=== PATIENT | female | born 1945 | race Caucasian/White ===

== ENCOUNTER 2023-03-28 09:48 | Outpatient (OUT) | payer MEDICARE, SELFPAY ==
[2023-03-28 10:36] LABS: Basophils Absolute Auto 0.1 10^3/uL (0.0-0.1); Basophils Percent Auto 0.6 % (0.2-2.0); Eosinophils Absolute Auto 0.4 10^3/uL (0.0-0.7); Eosinophils Percent Auto 3.1 % (0.9-7.0); Hematocrit 40.9 % (36.0-48.0); Immature Granulocytes Abs Auto 0.03 10^3/uL (0.00-0.03); Immature Granulocytes Pct Auto 0.2 % (0.0-0.5); Lymphocytes Absolute Auto 4.6 10^3/uL (1.2-3.8); Lymphocytes Percent Auto 35.5 % (20.5-60.0); Mean Corpuscular HGB Conc 31.8 g/dL (29.9-35.2); Mean Corpuscular Hemoglobin 27.8 pg (26.7-34.0); Mean Corpuscular Volume 87.6 fL (81.0-99.0); Mean Platelet Volume 11.1 fL (9.5-13.5); Monocytes Absolute Auto 0.8 10^3/uL (0.3-0.8); Monocytes Percent Auto 6.3 % (1.7-12.0); Neutrophils Absolute Auto 6.9 10^3/uL (1.4-6.5); Neutrophils Percent Auto 54.3 % (43.0-75.0); Platelet Count 282 10^3/uL (150-450); Red Blood Count 4.67 10^6/uL (4.20-5.40); Red Cell Distribution Width 13.2 % (11.0-15.0); White Blood Count 12.8 10^3/uL (4.0-11.0)
[2023-03-28 10:46] LABS: BUN Creatinine Ratio 29.7; Calcium 8.9 mg/dL (8.5-10.1); Carbon Dioxide 27.9 mmol/L (21.0-32.0); Chloride 101 mmol/L (98-107); Chol HDL Ratio 3.2; Cholesterol 171 mg/dL (<=200); Estimated GFR (African America >60 (>=60); Estimated GFR (Non-African Ame >60 (>=60); Glucose 92 mg/dL (74-106); HDL Cholesterol 53 mg/dL (40-60); Potassium 3.9 mmol/L (3.5-5.1); Sodium 138 mmol/L (136-145); Triglycerides 50 mg/dL (<=150)
== END 2023-03-28 09:49 | disposition home or self-care (01) ==
LOC: LAB 09:53
PROVIDERS: PCP Internal Medicine; Visit Provider Internal Medicine
DX: E78.00 Pure hypercholesterolemia, unspecified (principal); I10 Essential (primary) hypertension; Z79.899 Other long term (current) drug therapy
CPT/HCPCS: 36415; 80048; 80061; 85025

== ENCOUNTER 2024-06-18 10:18 | Outpatient (OUT) | payer MEDICARE, SELFPAY ==
--- OUTSIDE RECORDS SUMMARY | 2024-06-18 10:23 | XMS_ITS | CCD ---
Author Organization [facility] Care Team Providers Care Clinical Associate Name Role Phone DR MAYITO COSTELLO Primary Care Unavailable DIANDRA, LEONIDAS Attending Unavailable ROSS, LEONIDAS Consulting Unavailable ROSS, LEONIDAS Admitting Unavailable BALL, DR BERNARDO Primary Care Unavailable BALL, DR BERNARDO Admitting Unavailable BALL, DR BERNARDO Attending Unavailable BALL, DR BERNARDO Consulting Unavailable BALL, DR BERNARDO Primary Care Unavailable BALL, DR BERNARDO Admitting Unavailable BALL, DR BERNARDO Attending Unavailable BALL, DR BERNARDO Consulting Unavailable BALL, DR BERNARDO Primary Care Unavailable ROSS, LEONIDAS Consulting Unavailable ROSS, LEONIDAS Admitting Unavailable ROSS, LEONIDAS Attending Unavailable ROSS, LEONIDAS Consulting Unavailable ROSS, LEONIDAS Admitting Unavailable ROSS, LEONIDAS Attending Unavailable BALL, DR BERNARDO Primary Care Unavailable Ball, Mayito Unavailable Allergies Allergy Classification Reported Allergen(s) Allergy Type Date of Onset Reaction(s) Facility (1 source) Penicillin Drug Allergy 05-15-18 70 [facility] (1 source) Sulfonamides (Antibiotic) Drug allergy (disorder) 05-15-18 60 [facility] (2 sources) sulfADIAZINE Drug Allergy 04-03-20 [facility] (1 source) patient allergy list reviewed by nurse or physicia Propensity to adverse reactions 01-09-20 Comment:Done [employer] Other (1 source) Substance with penicillin structure and antibacterial mechanism of action (substance) Drug allergy 01-08-20 19 Unknown [facility] Other (1 source) Penicillins Allergy to substance 04-03-20 Unknown Reaction [facility] Comment on above: Onset Date: 01/08/20 19 Medications Current Medications Medication Drug Class(es) Dates Sig (Normalized) Sig (Original) losartan potassium 25 mg oral tablet (5 sources) Angiotensin 2 Receptor Tamaar Start: 10-02-2023 End: 03-21-2024 take 1 tablet by mouth once daily Losartan 25 mg tablet Active 0 .ROUTE .COMPLEX March 21, 2024 10:39am TAKE 1 TABLET BY MOUTH EVERY DAY Start: 09-28-2023 End: 10-02-2023 take 1 tablet by mouth once daily Losartan 25 mg tablet Discontinued 25 MG PO Daily September 27, 2023 11:00pm October 02, 2023 11:47am take 1 tablet by jordon th once daily Losartan Potassium 25 MG TAKE 1 TABLET BY MOUTH EVERY DAY Active metoprolol tartrate 25 mg oral tablet (5 sources) beta-Adrenergic Tamara Start: 09-28-2023 End: 03-14-2024 take 0.5 tablet by mouth twice daily Metoprolol Tartrate 25 mg tablet Active 0 .ROUTE .COMPLEX March 14, 2024 12:31pm TAKE 1/2 TABLET BY MOUTH TWICE A DAY Start: 09-28-2023 End: 09-28-2023 take 0.5 tablet by mouth twice daily Metoprolol Tartrate 25 mg tablet Discontinued 25 MG PO Twice daily September 27, 2023 11:00pm September 28, 2023 9:52am TAKE 1/2 TABLET BY MOUTH TWICE A DAY take 0.5 tablet by m outh twice daily Metoprolol Tartrate 25 MG TAKE 1/2 TABLET BY MOUTH TWICE A DAY Active Completed/Discontinued Medications Medication Drug Class(es) Dates Sig (Normalized) Sig (Original) diazePAM 2 mg oral tablet (7 sources) Benzodiazepine Start: 09-28-2023 End: 10-05-2023 take 1 tablet by mouth every six hours as needed for anxiety Diazepam 2 mg tablet Discontinued 2 MG PO Every 6 hours as needed for anxiety October 05, 2023 2:42pm October 05, 2023 2:54pm Start: 03-20-2023 take 1 tablet by jordon th every six hours as needed for anxiety diazePAM 2 MG TAKE 1 TABLET BY MOUTH EVERY 6 HOURS NEEDED FOR ANXIETY Orally daily as needed for anxiety for 30 days Mar, Active Problems Problem Classification Problem Date Documented Da te Episodic/Chronic Anxiety disorders (3 sources) Generalized anxiety disorder; Translations: [Generalized anxiety disorder] 09-29-2023 Chronic Cardiac dysrhythmias (6 sources) Palpitations; Translations: [Palpitations] Onset: 10-22-2020 Episodic Conduction disorders (1 source) Left bundle branch block; Translations: [Left bundle-branch block, unspecified] Chronic Disorders of lipid metabolism (5 sources) Familial hypercholesterolemi a; Translations: [Hypercholesterolem ia] Onset: 11-12-2020 04-01-2024 Chronic Essential hypertension (5 sources) Essential (primary) hypertension; Translations: [Essential hypertension] Onset: 11-12-2020 04-01-2024 Chronic Immunizations and screening for infectious disease (4 sources) Encounter for immunization; Translations: [ENCOUNTER FOR IMMUNIZATION] Onset: 05-18-2021 Episodic Other aftercare (1 source) Drug therapy finding; Translations: [Other lime vat tender (current) drug therapy] 04-03-2024 Episodic Other injuries and conditions due to external causes (1 source) History of fall; Translations: [History of falling] Episodic Other nutritional; endocrine; and metabolic disorders (1 source) Overweight; Translations: [Overweight] Episodic Residual codes; unclassified (1 source) Procedure not done; Translations: [Procedure and treatment not carried out because of patient's decision for unspecified reasons] Episodic Residual codes; unclassified (1 source) Mammogram declined; Translations: [Procedure and treatment not carried out because of patient's decision for unspecified reasons] 04-03-2024 Episodic Residual codes; unclassified (1 source) Procedure and treatment not carried out because of patient's decision for unspecified reasons; Translations: [Surgical or other procedure not carried out because of patient's decision] 04-03-2024 Episodic Results Test Name Value Interpretation Reference Range Facil ity CBC AUTO DIFFon 11-10-2020 BASO # 0.1 103/ul Normal 0.0-0.1 [facility] Comment on above: Performed By: #### C BC #### [facility] [address], [place] [address] Loly Naz Basophils/100 WBC (Bld) 0.6 % Normal 0.2-2.0 [facility] Comment on above: Performed By: #### C BC #### [facility] [address], [place] [address] Loly Naz EO # 0.4 103/ul Normal 0.0-0.7 [facility] Comment on above: Performed By: #### C BC #### [facility] [address] [place], [place] [id number] Loly Naz Eosinophils/100 WBC (Bld) 3.4 % Normal 0.9-7.0 [facility] Comment on above: Performed By: #### C BC #### [facility] [address] [place], [place] [phone] Loly Naz Erythrocyte distribution width (RBC) [Ratio] 13.1 % Normal 11.0-15.0 [facility] Comment on above: Performed By: #### C BC #### [facility] [address] [place] [address] Loly Naz Hematocrit (Bld) [Volume fraction] 41.5 % Normal 36.0-48.0 [facility] Comment on above: Performed By: #### C BC #### [facility] [address] [place] [address] Loly Naz Hemoglobin (Bld) [Mass/Vol] 13.5 g/dL Normal 12.0-16.0 [facility] Comment on above: Performed By: #### C BC #### [facility] [address] [place] [address] Loly Naz IG # 0.03 10e3/ul Normal 0.00-0.03 [facility] Comment on above: Performed By: #### C BC #### [facility] [address] [place] [address] Loly Naz IG % 0.3 % Normal 0.0-0.5 [facility] Comment on above: Performed By: #### C BC #### [facility] [address] [place] [address] Loly Naz LYMPH # 3.6 103/ul Normal 1.2-3.8 [facility] Comment on above: Performed By: #### C BC #### [facility] [address] [place] [address] Loly Naz Lymphocytes/100 WBC (Bld) 34.9 % Normal 20.5-60.0 [facility] Comment on above: Performed By: #### C BC #### [facility] [address] [place] [address] Loly Childs MANUAL DIFF REQ NO Normal [facility] Comment on above: Performed By: #### C BC #### [facility] [address] [place] [address] Loly Childs MCH (RBC) [Entitic mass] 28.4 pg Normal 26.7-34.0 [facility] Comment on above: Performed By: #### C BC #### [facility] [address] [place] [address] Loly Childs MCHC (RBC) [Mass/Vol] 32.5 g/dL Normal 29.9-35.2 [facility] Comment on above: Performed By: #### C BC #### [facility] [address] [place] [address] Loly Childs MCV (RBC) [Entitic vol] 87.2 fL Normal 81.0-99.0 [facility] Comment on above: Performed By: #### C BC #### [facility] [address] [place] [address] Loly Childs MONO # 0.8 103/ul Normal 0.3-0.8 [facility] Comment on above: Performed By: #### C BC #### [facility] [address] [place] [address] Loly Childs Monocytes/100 WBC (Bld) 7.6 % Normal 1.7-12.0 [facility] Comment on above: Performed By: #### C BC #### [facility] [address] [place] [address] Loly Childs NEUT # 5.5 103/ul Normal 1.4-6.5 [facility] Comment on above: Performed By: #### C BC #### [facility] [address] [place] [address] Loly Childs Neutrophils/100 WBC (Bld) 53.2 % Normal 43.0-75.0 [facility] Comment on above: Performed By: #### C BC #### [facility] [address] [place] [address] Lolysarah Childs Platelet mean volume (Bld) [Entitic vol] 12.6 fL Normal 9.5-13.5 [facility] Comment on above: Performed By: #### C BC #### [facility] [address] [place] [address] Loly Anz PLT 229 103/ul Normal 150-450 [facility] Comment on above: Performed By: #### C BC #### [facility] [address] [place] [id number] Loly Naz RBC 4.76 106/ul Normal 4.20-5.40 [facility] Comment on above: Performed By: #### C BC #### [facility] [address] [place] [id number] Loly Naz WBC 10.3 103/ul Normal 4.0-11.0 [facility] Comment on above: Performed By: #### C BC #### [facility] [address] [place] [id number] Loly Naz LIPID PROFILEon 11-10-2020 CHOL-HDL RATIO NORM SEE BELOW Normal [facility] Comment on above: Result Comment: 3.3 - 4.4 LOW RISK 4.4 - 7.1 AVERAGE RISK 7.1 - 11.0 MODERATE RISK >11.0 HIGH RISK Performed By: #### L IPID BMP #### [facility] [address] [place] [address] Loly Naz Cholesterol [Mass/Vol] 173 mg/dL Normal <=200 [facility] Comment on above: Performed By: #### L IPID BMP #### [facility] [address] [place] [address] Loly Naz Cholesterol in HDL [Mass/Vol] 48 mg/dL Normal [facility] Comment on above: Performed By: #### L IPID, BMP #### [facility] [address] [place], [place] [phone] Loly Naz Cholesterol in LDL [Mass/Vol] 113.8 mg/dL Normal [facility] Comment on above: Performed By: #### L IPID, BMP #### [facility] [address] [place] [address] Loly Naz Cholesterol.total/C holesterol in HDL [Mass ratio] 3.6 {ratio} Normal [facility] Comment on above: Performed By: #### L IPID, BMP #### [facility] [address] [id number] Loly Naz HDL NORMAL > or = 60 mg/dl - LO W CARDIOVASCULAR RISK <40 mg/dl - HIGH CARDIOVASCULAR RISK Normal [facility] Comment on above: Performed By: #### L IPID, BMP #### [facility] [address] [place] [id number] Loly Naz LDL CALC NORMAL SEE BELOW Normal [facility] Comment on above: Result Comment: <100 mg/dl OPTIMAL 100 - 129 mg/dl NEAR OR ABOVE OPTIMAL 130 - 159 mg/dl BORDERLINE HIGH 160 - 189 mg/dl HIGH >190 mg/dl VERY HIGH Performed By: #### L IPID, BMP #### [facility] [address] [place], [place] [phone] Loly Naz Triglyceride [Mass/Vol] 56 mg/dL Normal <=150 [facility] Comment on above: Performed By: #### L IPID, BMP #### [facility] [address] [id number] Loly Naz VLDL CALC 11.2 mg/dL Normal [facility] Comment on above: Performed By: #### L IPID, BMP #### [facility] [address] [id number] Loly Naz PROF CHEM 8 (BAS METB)on Anion gap [Moles/Vol] 11.6 mmol/L Normal [facility] Comment on above: Performed By: #### L IPID, BMP #### [facility] [address] [place] [id number] Loly Naz Calcium [Mass/Vol] 9.1 mg/dL Normal 8.4-10.2 [facility] Comment on above: Performed By: #### L IPID, BMP #### [facility] [address] [place] [id number] Loly Naz Chloride [Moles/Vol] 101 mmol/L Normal 98-107 [facility] Comment on above: Performed By: #### L IPID, BMP #### [facility] [address] [id number] Loly Naz CO2 [Moles/Vol] 29.6 mmol/L Normal 22.0-30.0 [facility] Comment on above: Performed By: #### L IPID, BMP #### [facility] [address] [id number] Loly Naz Creatinine [Mass/Vol] 0.80 mg/dL Normal 0.52-1.04 [facility] Comment on above: Performed By: #### L IPID, BMP #### [facility] [address] [id number] Loly Naz EGFR-AF KITTITIAN >60 Normal >=60 [facility] Comment on above: Performed By: #### L IPID, BMP #### [facility] [address] [place] [address] Loly Naz EGFR-NON AF KITTITIAN >60 Normal >=60 [facility] Comment on above: Performed By: #### L IPID, BMP #### [facility] [address] [place] [address] Loly Naz Glucose [Mass/Vol] 95 mg/dL Normal 74-106 [facility] Comment on above: Performed By: #### L IPID, BMP #### [facility] [address] [place] [address] Loly Naz Potassium [Moles/Vol] 4.2 mmol/L Normal 3.4-5.0 [facility] Comment on above: Performed By: #### L IPID, BMP #### [facility] [address] [place] [address] Loly Naz Sodium [Moles/Vol] 138 mmol/L Normal 137-145 [facility] Comment on above: Performed By: #### L IPID, BMP #### [facility] [address] [place] [address] Loly Naz Urea nitrogen [Mass/Vol] 19.0 mg/dL Critically high 7.0-17.0 [facility] Comment on above: Performed By: #### L IPID, BMP #### [facility] [address], [place] [address] Loly Childs Urea nitrogen/Creatinine [Mass ratio] 23.8 mg/mg Normal [facility] Comment on above: Performed By: #### L IPID, BMP #### [facility] [address], [place] [address] Loly Childs Vital Signs Date Time Vital Sign Value Performing Clinician Dee Dee gonzales 04-03-2024 15:58-0500 Body height 162.56 cm [facility] 04-03-2024 15:58-0500 Body mass index (BMI) [Ratio] 24.9 kg/m2 [facility] 04-03-2024 15:58-0500 Body weight 65.77 kg [facility] 04-03-2024 15:58-0500 Diastolic blood pressure 89 mm[Hg] [facility] 04-03-2024 15:58-0500 Heart rate 63 /min [facility] 04-03-2024 15:58-0500 Respiratory rate 12 /min [facility] 04-03-2024 15:58-0500 Systolic blood pressure 151 mm[Hg] [facility] Encounters Encounter Date Encounter Type Care Provider Facility Start: 04-03-2024 End: 04-03-2024 ambulatory [facility] Work Phone: Start: 04-03-2024 End: 04-03-2024 Patient encounter procedure [facility] Phys[facility] Work Phone: Start: 04-01-2024 Patient encounter procedure [facility] Start: 03-20-2024 Non-patient / Non-visit [facility] Physician [facility] Work Phone: Start: 03-29-2023 End: 03-29-2023 ambulatory Mayito Costello Other [employer] Other Start: 03-29-2023 Telephone encounter Mayito MAN [facility] Start: 01-04-2022 Adult health examination Mayito Costello Other [employer] Other Start: 05-18-2021 End: 05-19-[address] MAYITO COSTELLO Facility:[facility] Start: 11-12-2020 Encounter for genera l adult medical examination without abnormal findings DR MAYITO COSTELLO [facility] Start: 11-10-2020 End: 11-11-[address] MAYITO COSTELLO Facility:[facility] Start: 11-10-2020 End: 11-11-2020 Encounter for general adult medical examination without abnormal findings DR MAYITO COSTELLO Facility:[facility] Start: 10-22-2020 End: 10-23-[address] MAYITO COSTELLO Facility:[facility] Start: 09-21-2020 End: 09-22-[address] MAYITO COSTELLO Facility:[facility] Start: 08-31-2020 End: 09-01-2020 ambulatory LEONIDAS DIANDRA Facility:[facility] Procedures Date Procedure Procedure Detail Performing Clinician Depression screening Camila Costello Other Plan of Treatment Date Care Activity Detail Author Comprehensive metabo lic 2000 panel - Serum or Plasma [facility] enter [facility] Payers Date Payer Category Payer Medicare [id number] 1959 Self-pay 1961 Unknown [id number] 1945 Unknown [id number] [id number] [id number] 1945 Unknown [id number] 2.16.84 [id number] 1945 Unknown [id number] [id number] [id number] 1945 Unknown [id number] 2.16.84 [id number] Private Health Insurance CLI [id number] Unknown [id number] 2.16.84 [id number] Social History Date Type Detail Facility Sex [facility]igned At [facility] Work Phone: Start: 04-03-2024 Sex Female (finding) [facility] Start: 1945 Sex Assigned At Female F [facility] Evaluation note Note Date & Type Note Facility Evaluation note No Information [facility] [employer] Other Evaluation note Note Date & Type Note Facility Evaluation note Diagnosis Onset Date Resolution ANDRES (generalized anxiety disorder) acute April 03, 2024 3:35pm Hypercholesterolemia acute Nove mber 2023 3:35pm Hypertension acute March 3:35pm Mammogram declined acute Novemb er 2023 3:35pm Medicare annual wellness visit, subsequent acute April 03, 2024 3:35pm [facility] Work Phone: History general Narrative - Reported Note Date & Type Note Facility History general Narrative - Reported Type Medical History HTN Medical History ANDRES Medical History LBBB Medical History HLD Surgical History Hydatidiform mole [facility] Other Summary Purpose Family History No Family History Records Found Advance Directives Advance Directive Response Recorded Date/ Time Advance Directives No February 15, 2024 2:00pm Chief Complaint and Reason for Visit Chief Complaint Admit Date CC Adult Risk Stratification March 12:00pm Wellness April 03, 2024 3:35pm Reason for Visit Admit Date ANDRES (generalized anxiety disorder) Novem 2023 3:35pm Hypercholesterolemia April 03, 2024 3:35pm Hypertension April 03, 2024 3:35pm Mammogram declined April 03, 2024 3:35pm Medicare annual wellness visit, subseque nt April 03, 2024 3:35pm Additional Source Comments INFORMATION SOURCE (unrecogn ized section and content) DATE CREATED AUTHOR 05/28/2021 [facility] REASON FOR VISIT (unrecogniz ed section and content) Lab results Care Teams (unrecognized sec tion and content) Team Status: Active Member Role Status Dates Mayito Costello DO Primary Care Provider Active Team Status: Active Member Role Status Dates Mayito Costello DO Primary Care Provide r, Attending Provider Active Start: March 20, 2024 Team Status: Inactive Member Role Status Dates Mayito Costello DO Primary Care Provide r, Attending Provider Active Start: April 03, 2024 End: April 03, 2024 Goals (unrecognized section and content) Goals may be documented in a n alternate section FOR RECORDS PERTAINING TO PATIENTS WHO ARE OR HAVE BEEN ENROLLED IN A CHEMICAL DEPENDENCY/SUBSTANCEABUSE PROGRAM, SOME INFORMATION MAY BE OMITTED. This clinical summary was aggregated from multiple sources. Caution should be exercised in using it in the provision of clinical care. This summary normalizes information from multiple sources, and as a consequence, information in this document may materially change the coding, format and clinical context of patient data. In addition, data may be omitted in some cases. CLINICAL DECISIONS SHOULD BE BASED ON THE PRIMARY CLINICAL RECORDS. [facility] [employer] [facility]. provides no warranty or guarantee of the accuracy or completeness of information in this document.
[2024-06-18 10:45] LABS: Basophils Absolute Auto 0.1 10^3/uL (0.0-0.1); Basophils Percent Auto 0.7 % (0.2-2.0); Eosinophils Absolute Auto 0.5 10^3/uL (0.0-0.7); Eosinophils Percent Auto 2.9 % (0.9-7.0); Hematocrit 37.9 % (36.0-48.0); Hemoglobin 12.9 g/dL (12.0-16.0); Immature Granulocytes Abs Auto 0.15 10^3/uL (0.00-0.03); Lymphocytes Absolute Auto 3.2 10^3/uL (1.2-3.8); Lymphocytes Percent Auto 20.4 % (20.5-60.0); Mean Corpuscular Hemoglobin 29.2 pg (26.7-34.0); Mean Corpuscular Volume 85.7 fL (81.0-99.0); Mean Platelet Volume 12.8 fL (9.5-13.5); Monocytes Absolute Auto 1.3 10^3/uL (0.3-0.8); Monocytes Percent Auto 8.2 % (1.7-12.0); Neutrophils Absolute Auto 10.4 10^3/uL (1.4-6.5); Neutrophils Percent Auto 66.8 % (43.0-75.0); Platelet Count 268 10^3/uL (150-450); Red Blood Count 4.42 10^6/uL (4.20-5.40); Red Cell Distribution Width 17.7 % (11.0-15.0); White Blood Count 15.6 10^3/uL (4.0-11.0)
[2024-06-18 11:09] LABS: Alanine Aminotransferase 499 U/L (14-59); Albumin Globulin Ratio 0.8; Albumin Level 2.8 g/dL (3.4-5.0); Alkaline Phosphatase 1074 U/L (46-116); Anion Gap 17.3; Aspartate Amino Transferase 273 U/L (15-37); BUN Creatinine Ratio 15.7; Bilirubin Total 12.9 mg/dL (0.2-1.0); Calcium 9.3 mg/dL (8.5-10.1); Carbon Dioxide 23.4 mmol/L (21.0-32.0); Chloride 101 mmol/L (98-107); Estimated GFR (African America >60 (>=60 mL/min/1.73m^2); Estimated GFR (Non-African Ame >60 (>=60 mL/min/1.73m^2); Globulin 3.7 g/dL; Glucose 101 mg/dL (74-106); Potassium 3.7 mmol/L (3.5-5.1); Sodium 138 mmol/L (136-145); Total Protein 6.5 g/dL (6.4-8.2)
== END 2024-06-18 10:19 | disposition home or self-care (01) ==
LOC: LAB 10:20
PROVIDERS: PCP Internal Medicine; Visit Provider Internal Medicine
DX: E78.00 Pure hypercholesterolemia, unspecified (principal); I10 Essential (primary) hypertension; Z79.899 Other long term (current) drug therapy
CPT/HCPCS: 36415; 80053; 85025

== ENCOUNTER 2024-06-21 08:26 | Outpatient (OUT) | payer MEDICARE, SELFPAY ==
--- NOTE | 2024-06-21 08:31 | CT_ITS ---
[address] [address] Patient Name: JENNA OSWALD MRN: [id number] date: 1945 Sex: F Assigned Patient Location: CT Current Patient Location: Accession/Order Number: [id number] Exam Date: 06/21/2024 09:25 Report Date: 06/24/2024 12:45 At the request of: [place] COSTELLO Procedure: CT abdomen pelvis w con EXAM: CT abdomen pelvis w con HISTORY: Obstructive Hyperbilirubinemia COMPARISON: None. TECHNIQUE: Axial CT imaging was performed through the abdomen and pelvis with intravenous contrast. Multiplanar reformats were performed. Dose reduction techniques were achieved by using automated exposure control and/or adjustment of mA and/or kV according to patient size and/or use of iterative reconstruction technique. FINDINGS: Lung bases: Lung bases are clear. No pleural effusion. GI upper: Unremarkable. Liver: Normal size and contour. There is a 4.6 x 3.4 cm ill-defined hypoenhancing region in segment 4A and B and 8, suspicious for primary hepatic neoplasm such as cholangiocarcinoma or metastasis. There appears capsule retraction of the segment 8 and 4A. Gallbladder: Cholecystectomy. Biliary system: No significant common bile duct dilatation. There is moderate intrahepatic biliary ductal dilatation, measuring up to 0.7 cm. Spleen: Normal size. Pancreas: Unremarkable. Adrenal glands: Normal adrenal glands. Kidneys/ureters: Normal contours. No hydronephrosis. No nephrolithiasis or ureterolithiasis. Multiple bilateral simple renal cysts. Vessels: No aneurysm. Lymph Nodes: There is 1 cm periportal lymph node. Small bowel: No wall thickening or dilatation. Colon: No wall thickening or dilatation. There is intraluminal polypoid lower rectal mass from 3 - 11:00 Trendelenburg position (series 3, image 106, highly suspicious for rectal adenocarcinoma. Appendix: No findings of appendicitis. Peritoneal cavity: No free fluid or pneumoperitoneum. Lower : Unremarkable. Bones: No acute bony abnormality. Soft tissues: No acute finding. Additional findings: None. CT/CT abdomen pelvis w con IMPRESSION: a 4.6 x 3.4 cm ill-defined hypoenhancing region in segment 4A and B and 8, suspicious for primary hepatic neoplasm such as cholangiocarcinoma or metastasis. There appears capsule retraction of the segment 8 and 4A. Liver protocol MRI with contrast, including diffusion weighted images and MRCP is recommended for better evaluation. intraluminal polypoid lower rectal mass from 3 - 11:00 Trendelenburg position, highly suspicious for rectal adenocarcinoma. Rectal protocol pelvic MRI with contrast and/or PET/CT is recommended for better evaluation. Electronically authenticated by: CORTES CORONADO Date: 06/24/2024 12:45
--- OUTSIDE RECORDS SUMMARY | 2024-06-21 08:48 | XMS_ITS | CCD ---
Author Organization [facility] Care Team Providers Care Administrative Assistant Receptionist Name Role Phone DR MAYITO COSTELLO Primary [...] source) Penicillin Drug Allergy 05-15-18 70 [facility] (1 source) Sulfonamides (Antibiotic) Drug allergy (disorder) 05-15-18 60 [facility] (3 sources) sulfADIAZINE Drug Allergy 04-03-20 Comment:Sulfa [facility] (1 source) patient allergy list reviewed by nurse or physicia Propensity to adverse reactions 01-09-20 Comment:Done [facility] Other (1 source) Substance with penicillin structure and antibacterial mechanism of action (substance) Drug allergy 01-08-20 19 Unknown [facility] Other (2 sources) Penicillins Allergy to substance 04-03-20 Unknown Reaction [facility] Comment on above: Onset Date: 01/08/20 19 Medications Current Medications Medication Drug Class(es) Dates Sig (Normalized) Sig (Original) diazePAM 2 mg oral tablet (16 sources) Benzodiazepine Start: 06-17-2024 take 1 tablet by mouth twice daily as needed for anxiety Diazepam 2 mg tablet Active 2 MG PO Twice daily as needed for anxiety June 17, 2024 6:11pm Start: 06-11-2024 End: 06-17-2024 take 1 tablet by mouth every eight hours as needed for anxiety Diazepam 2 mg tablet Discontinued 2 MG PO Every 8 hours as needed for anxiety June 14, 2024 12:20pm June 17, 2024 6:11pm Start: 09-28-2023 End: 06-11-2024 take 1 tablet by mouth every six hours as needed for anxiety Diazepam 2 mg tablet Discontinued 2 MG PO Every 6 hours as needed for anxiety October 05, 2023 2:54pm June 11, 2024 9:44pm Start: 03-20-2023 take 1 tablet by jordon th every six hours as needed for anxiety diazePAM 2 MG TAKE 1 TABLET BY MOUTH EVERY 6 HOURS NEEDED FOR ANXIETY Orally daily as needed for anxiety for 30 days Mar, Active hydrocortisone 25 mg/ml topical cream (2 sources) Corticosteroid Start: 04-30-2024 Hydrocortisone 2.5 % cream Active 0 .ROUTE .COMPLEX 28.35 April 30, 2024 5:43pm APPLY TOPICALLY TWICE DAILY NEEDED FOR SKIN IRRITATION FOR 30 DAYS Start: 04-03-2024 End: 04-30-2024 Hydrocortisone 2.5 % cream D iscontinued 1 APPLIC TOPICAL Twice daily as needed for skin irritation April 03, 2024 12:00am April 30, 2024 5:43pm losartan potassium 25 mg oral tablet (10 sources) Angiotensin 2 Receptor Tamara Start: 10-02-2023 End: 06-17-2024 take 1 tablet by mouth once daily Losartan 25 mg tablet Active 0 .ROUTE .COMPLEX June 17, 2024 6:10pm TAKE 1 TABLET BY MOUTH EVERY DAY Start: 09-28-2023 End: 10-02-2023 take 1 tablet by mouth once daily Losartan 25 mg tablet Discontinued 25 MG PO Daily September 27, 2023 11:00pm October 02, 2023 11:47am take 1 tablet by jordon th once daily Losartan Potassium 25 MG TAKE 1 TABLET BY MOUTH EVERY DAY Active Completed/Discontinued Medications Medication Drug Class(es) Dates Sig (Normalized) Sig (Original) metoprolol tartrate 25 mg oral tablet (9 sources) beta-Adrenergic Tamara Start: 09-28-2023 End: 03-14-2024 take 0.5 tablet by mouth twice daily Metoprolol Tartrate 25 mg tablet Discontinued 0 .ROUTE .COMPLEX 90 December 24, 2023 1:02pm March 14, 2024 12:31pm TAKE 1/2 TABLET [...] TABLET BY MOUTH TWICE A DAY Active Problems Problem Classification Problem Date Documented Da te Episodic/Chronic Anxiety disorders (5 sources) Generalized anxiety disorder; Translations: [Generalized anxiety disorder] 09-29-2023 Chronic Cardiac dysrhythmias (6 sources) Palpitations; Translations: [Palpitations] Onset: 10-22-2020 Episodic Conduction disorders (1 source) Left bundle branch block; Translations: [Left bundle-branch block, unspecified] Chronic Disorders of lipid metabolism (7 sources) Familial hypercholesterolemi a; Translations: [Hypercholesterolem ia] Onset: 11-12-2020 04-01-2024 Chronic Essential hypertension (7 sources) Essential (primary) hypertension; Translations: [Essential hypertension] Onset: 11-12-2020 04-01-2024 Chronic Immunizations and screening for infectious disease (4 sources) Encounter for immunization; Translations: [ENCOUNTER FOR IMMUNIZATION] Onset: 05-18-2021 Episodic Other aftercare (2 sources) Drug therapy finding; Translations: [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) drug therapy] 04-03-2024 Episodic Other injuries and conditions due to external causes (1 source) History of fall; Translations: [History of falling] Episodic Other nutritional; endocrine; and metabolic disorders (1 source) Overweight; Translations: [Overweight] Episodic Residual codes; unclassified (1 source) Procedure not done; Translations: [Procedure and treatment not carried out because of patient's decision for unspecified reasons] Episodic Residual codes; unclassified (2 sources) Mammogram declined; Translations: [Procedure and treatment not carried out because of patient's decision for unspecified reasons] 04-03-2024 Episodic Residual codes; unclassified (2 sources) Procedure and treatment not carried out because of patient's decision for unspecified reasons; Translations: [Surgical or other procedure not carried out because of patient's decision] 04-03-2024 Episodic Results Test Name Value Interpretation Reference Range Facility Basophils Auto (Bld) [#/Vol] on 06-18-2024 Basophils (Bld) [#/Vol] Automated basophil count 0.0-0.1 [facility] Basophils/100 WBC Auto (Bld) on 06-18-2024 Basophils/100 WBC (Bld) Automated basophil % 0.2-2.0 [facility] Eosinophils/100 WBC Auto (Bl d)on 06-18-2024 Eosinophils/100 WBC (Bld) Automated eosinophil % 0.9-7.0 [facility] Erythrocyte distribution wid th Auto (RBC) [Ratio]on 06-18-2024 Erythrocyte distribution width (RBC) [Ratio] Erythrocyte distribution width [Ratio] by Automated count High 11.0-15.0 [facility] Estimated glomerular filtrat ion rate (GFR) non- Americanon 06-18-2024 GFR/1.73 sq M.predicted among non-blacks MDRD (S/P/Bld) [Vol rate/Area] Estimated glomerular filtration rate (GFR) non- >=60 mL/min/1.73m 2 [facility] Globulin Calc (S) [Mass/Vol] on 06-18-2024 Globulin (S) [Mass/Vol] Serum globulin measurement by calculation (mass/volume) [facility] Hematocrit Auto (Bld) [Volum e fraction]on 06-18-2024 Hematocrit (Bld) [Volume fraction] Hematocrit [Volume Fraction] of Blood by Automated count 36.0-48.0 [facility] Hemoglobin [Mass/volume] in Bloodon 06-18-2024 Hemoglobin (Bld) [Mass/Vol] Hemoglobin [Mass/volume] in Blood 12.0-16.0 [facility] Laboratory - Chemistry and C hemistry - challengeon 06-18-2024 Albumin [Mass/Vol] 2.8 g/dL Low 3.4-5.0 [facility] ALP [Catalytic activity/Vol] 1074 U/L High 46-116 [facility] ALT [Catalytic activity/Vol] 499 U/L High 14-59 [facility] AST [Catalytic activity/Vol] 273 U/L High 15-37 [facility] Bilirubin [Mass/Vol] 12.9 mg/dL High 0.2-1.0 [facility] Calcium [Mass/Vol] 9.3 mg/dL 8.5-10.1 [facility] Chloride [Moles/Vol] 101 mmol/L 98-107 [facility] CO2 [Moles/Vol] 23.4 mmol/L 21.0-32.0 [facility] Creatinine [Mass/Vol] 0.83 mg/dL 0.55-1.02 [facility] GFR/1.73 sq M.predicted MDRD (S/P/Bld) [Vol rate/Area] mL/min/{1.73_m2} >=60 mL/min/1.73m 2 [facility] Glucose [Mass/Vol] 101 mg/dL 74-106 [facility] Potassium [Moles/Vol] 3.7 mmol/L 3.5-5.1 [facility] Protein [Mass/Vol] 6.5 g/dL 6.4-8.2 [facility] Sodium [Moles/Vol] 138 mmol/L 136-145 [facility] Urea nitrogen [Mass/Vol] 13.0 mg/dL 7.0-18.0 [facility] Urea nitrogen/Creatinine [Mass ratio] 15.7 mg/mg [facility] Laboratory - Hematology and Cell countson 06-18-2024 Immature granulocytes/100 WBC (Bld) 1.0 % High 0.0-0.5 [facility] Leukocytes [#/volume] correc saleem for nucleated erythrocytes in Blood by Automated counon 06-18-2024 WBC corrected for nucl RBC Auto (Bld) [#/Vol] Leukocytes [#/volume] corrected for nucleated erythrocytes in Blood by Automated coun High 4.0-11.0 [facility] Lymphocytes Auto (Bld) [#/Vo l]on 06-18-2024 Lymphocytes (Bld) [#/Vol] Lymphocytes [#/volume] in Blood by Automated count 1.2-3.8 [facility] Lymphocytes/100 WBC Auto (Bl d)on 06-18-2024 Lymphocytes/100 WBC (Bld) Lymphocytes/100 leukocytes in Blood by Automated count Low 20.5-60.0 [facility] MCH Auto (RBC) [Entitic mass ]on 06-18-2024 MCH (RBC) [Entitic mass] MCH [Entitic mass] by Automated count 26.7-34.0 [facility] MCHC Auto (RBC) [Mass/Vol]on 06-18-2024 MCHC (RBC) [Mass/Vol] MCHC [Mass/volume] by Automated count 29.9-35.2 [facility] MCV Auto (RBC) [Entitic vol] on 06-18-2024 MCV (RBC) [Entitic vol] MCV [Entitic volume] by Automated count 81.0-99.0 [facility] Monocytes Auto (Bld) [#/Vol] on 06-18-2024 Monocytes (Bld) [#/Vol] Automated blood monocyte count High 0.3-0.8 [facility] Monocytes/100 WBC Auto (Bld) on 06-18-2024 Monocytes/100 WBC (Bld) Automated monocyte % 1.7-12.0 [facility] Neutrophils Auto (Bld) [#/Vo l]on 06-18-2024 Neutrophils (Bld) [#/Vol] Neutrophils [#/volume] in Blood by Automated count High 1.4-6.5 [facility] Neutrophils/100 WBC Auto (Bl d)on 06-18-2024 Neutrophils/100 WBC (Bld) Automated neutrophil % 43.0-75.0 [facility] No Panel Informationon 06-18 Eosinophils # (Auto) 0.5 10 3/uL 0.0-0.7 [facility] Immature Granulocyte # (Auto) 0.15 10 3/uL High 0.00-0.03 [facility] Platelet mean volume Auto (B ld) [Entitic vol]on 06-18-2024 Platelet mean volume (Bld) [Entitic vol] Platelet mean volume [Entitic volume] in Blood by Automated count 9.5-13.5 [facility] Platelets Auto (Bld) [#/Vol] on 06-18-2024 Platelets (Bld) [#/Vol] Platelets [#/volume] in Blood by Automated count 150-450 [facility] RBC Auto (Bld) [#/Vol]on RBC (Bld) [#/Vol] Erythrocytes [#/volume] in Blood by Automated count 4.20-5.40 [facility] Serum or plasma albumin/glob ulin mass ratioon 06-18-2024 Albumin/Globulin [Mass ratio] Serum or plasma albumin/globulin mass ratio [facility] Serum or plasma anion gap de terminationon 06-18-2024 Anion gap [Moles/Vol] Serum or plasma anion gap determination [facility] CBC AUTO DIFFon 11-10-2020 BASO # 0.1 103/ul Normal 0.0-0.1 [facility] Comment on above: Performed By: #### C BC #### [facility] [address] [place] [address] Loly Naz Basophils/100 WBC (Bld) 0.6 % Normal 0.2-2.0 [facility] Comment on above: Performed By: #### C BC #### [facility] [address] [place], [place] [id number] Loly Naz EO # 0.4 103/ul Normal 0.0-0.7 [facility] Comment on above: Performed By: #### C BC #### [facility] [address] [place] [address] Loly Naz Eosinophils/100 WBC (Bld) 3.4 % Normal 0.9-7.0 [facility] Comment on above: Performed By: #### C BC #### [facility] [address] [place], [place] [id number] Loly Naz Erythrocyte distribution width (RBC) [Ratio] 13.1 % Normal 11.0-15.0 [facility] Comment on above: Performed By: #### C BC #### [facility] [address] [place], [place] [id number] Loly Naz Hematocrit (Bld) [Volume fraction] 41.5 % Normal 36.0-48.0 [facility] Comment on above: Performed By: #### C BC #### [facility] [address] [place], [place] [id number] Loly Naz Hemoglobin (Bld) [Mass/Vol] 13.5 g/dL Normal 12.0-16.0 [facility] Comment on above: Performed By: #### C BC #### [facility] [address] [place], [place] [id number] Loly Naz IG # 0.03 10e3/ul Normal 0.00-0.03 [facility] Comment on above: Performed By: #### C BC #### [facility] [address] [place] [address] Loly Naz IG % 0.3 % Normal 0.0-0.5 [facility] Comment on above: Performed By: #### C BC #### [facility] [address] [place] [address] Loly Naz LYMPH # 3.6 103/ul Normal 1.2-3.8 [facility] Comment on above: Performed By: #### C BC #### [facility] [address] [place], [place] [id number] Loly Childs Lymphocytes/100 WBC (Bld) 34.9 % Normal 20.5-60.0 [facility] Comment on above: Performed By: #### C BC #### [facility] [address] [place], [place] [phone] Lolysarah Childs MANUAL DIFF REQ NO Normal [facility] Comment on above: Performed By: #### C BC #### [facility] [address] [place], [place] [phone] Loly Naz MCH (RBC) [Entitic mass] 28.4 pg Normal 26.7-34.0 [facility] Comment on above: Performed By: #### C BC #### [facility] [address] [place], [place] [id number] Loly Naz MCHC (RBC) [Mass/Vol] 32.5 g/dL Normal 29.9-35.2 [facility] Comment on above: Performed By: #### C BC #### [facility] [address] [place], [place] [address] Loly Naz MCV (RBC) [Entitic vol] 87.2 fL Normal 81.0-99.0 [facility] Comment on above: Performed By: #### C BC #### [facility] [address] [place] [place] [id number] Loly Naz MONO # 0.8 103/ul Normal 0.3-0.8 [facility] Comment on above: Performed By: #### C BC #### [facility] [address] [place], [place] [phone] Loly Naz Monocytes/100 WBC (Bld) 7.6 % Normal 1.7-12.0 [facility] Comment on above: Performed By: #### C BC #### [facility] [address] [place] [address] Loly Naz NEUT # 5.5 103/ul Normal 1.4-6.5 [facility] Comment on above: Performed By: #### C BC #### [facility] [address] [place], [place] [phone] Loly Naz Neutrophils/100 WBC (Bld) 53.2 % Normal 43.0-75.0 [facility] Comment on above: Performed By: #### C BC #### [facility] [address] [place], [place] [phone] Loly Naz Platelet mean volume (Bld) [Entitic vol] 12.6 fL Normal 9.5-13.5 [facility] Comment on above: Performed By: #### C BC #### [facility] [address] [place], [place] [phone] Loly Naz PLT 229 103/ul Normal 150-450 [facility] Comment on above: Performed By: #### C BC #### [facility] [address] [place], [place] [phone] Loly Naz RBC 4.76 106/ul Normal 4.20-5.40 [facility] Comment on above: Performed By: #### C BC #### [facility] [address] [place], [place] [address] Loly Naz WBC 10.3 103/ul Normal 4.0-11.0 [facility] Comment on above: Performed By: #### C BC #### [facility] [address] [place], [place] [address] Loly Naz LIPID PROFILEon 11-10-2020 CHOL-HDL RATIO NORM SEE BELOW Normal [facility] Comment on above: Result Comment: 3.3 - 4.4 LOW RISK 4.4 - 7.1 AVERAGE RISK 7.1 - 11.0 MODERATE RISK >11.0 HIGH RISK Performed By: #### L IPID, BMP #### [facility] [address] [place], [place] [address] Loly Naz Cholesterol [Mass/Vol] 173 mg/dL Normal <=200 [facility] Comment on above: Performed By: #### L IPID, BMP #### [facility] [address] [place], [place] [address] Loly Naz Cholesterol in HDL [Mass/Vol] 48 mg/dL Normal [facility] Comment on above: Performed By: #### L IPID, BMP #### [facility] [address] [place], [place] [address] Loly Naz Cholesterol in LDL [Mass/Vol] 113.8 mg/dL Normal [facility] Comment on above: Performed By: #### L IPID, BMP #### [facility] [address] [place], [place] [address] Loly Naz Cholesterol.total/Cho lesterol in HDL [Mass ratio] 3.6 {ratio} Normal [facility] Comment on above: Performed By: #### L IPID, BMP #### [facility] [address] [place], [place] [address] Loly Naz HDL NORMAL > or = 60 mg/dl - LOW CARDIOVASCULAR RISK <40 mg/dl - HIGH CARDIOVASCULAR RISK Normal [facility] Comment on above: Performed By: #### L IPID, BMP #### [facility] [address] [place], [place] [address] Loly Naz LDL CALC NORMAL SEE BELOW Normal [facility] Comment on above: Result Comment: <100 mg/dl OPTIMAL 100 - 129 mg/dl NEAR OR ABOVE OPTIMAL 130 - 159 mg/dl BORDERLINE HIGH 160 - 189 mg/dl HIGH >190 mg/dl VERY HIGH Performed By: #### L IPID, BMP #### [facility] [address] [place] [address] Loly Naz Triglyceride [Mass/Vol] 56 mg/dL Normal <=150 [facility] Comment on above: Performed By: #### L IPID, BMP #### [facility] [address] [place] [address] Loly Naz VLDL CALC 11.2 mg/dL Normal [facility] Comment on above: Performed By: #### L IPID, BMP #### [facility] [address] [place] [address] Loly Naz PROF CHEM 8 (BAS METB)on Anion gap [Moles/Vol] 11.6 mmol/L Normal [facility] Comment on above: Performed By: #### L IPID, BMP #### [facility] [address] [place] [address] Loly Naz Calcium [Mass/Vol] 9.1 mg/dL Normal 8.4-10.2 [facility] Comment on above: Performed By: #### L IPID, BMP #### [facility] [address] [place] [address] Loly Naz Chloride [Moles/Vol] 101 mmol/L Normal 98-107 [facility] Comment on above: Performed By: #### L IPID, BMP #### [facility] [address] [place] [address] Loly Naz CO2 [Moles/Vol] 29.6 mmol/L Normal 22.0-30.0 [facility] Comment on above: Performed By: #### L IPID, BMP #### [facility] [address] [place] [address] Loly Naz Creatinine [Mass/Vol] 0.80 mg/dL Normal 0.52-1.04 [facility] Comment on above: Performed By: #### L IPID, BMP #### [facility] [address] [place], [place] [address] Loly Naz EGFR-AF URUGUAYAN >60 Normal >=60 [facility] Comment on above: Performed By: #### L IPID, BMP #### [facility] [address] [place] [id number] Loly Naz EGFR-NON AF URUGUAYAN >60 Normal >=60 [facility] Comment on above: Performed By: #### L IPID, BMP #### [facility] [address] [place] [id number] Loly Naz Glucose [Mass/Vol] 95 mg/dL Normal 74-106 [facility] Comment on above: Performed By: #### L IPID, BMP #### [facility] [address] [place] [address] Loly Naz Potassium [Moles/Vol] 4.2 mmol/L Normal 3.4-5.0 [facility] Comment on above: Performed By: #### L IPID, BMP #### [facility] [address] [place] [address] Loly Naz Sodium [Moles/Vol] 138 mmol/L Normal 137-145 [facility] Comment on above: Performed By: #### L IPID, BMP #### [facility] [address] [place] [id number] Loly Naz Urea nitrogen [Mass/Vol] 19.0 mg/dL Critically high 7.0-17.0 [facility] Comment on above: Performed By: #### L IPID, BMP #### [facility] [address] [place] [id number] Loly Naz Urea nitrogen/Creatinine [Mass ratio] 23.8 mg/mg Normal [facility] Comment on above: Performed By: #### L IPID, BMP #### [facility] [address] [place] [id number] Loly Naz Vital Signs Date Time Vital Sign Value Performing Clinician Dee Dee gonzales 06-20-2024 11:00-0500 Body height 162.56 cm [facility] 06-20-2024 11:00-0500 Body mass index (BMI) [Ratio] 25.1 kg/m2 [facility] 06-20-2024 11:00-0500 Body weight 66.39 kg [facility] 06-20-2024 11:00-0500 Diastolic blood pressure 73 mm[Hg] [facility] 06-20-2024 11:00-0500 Heart rate 71 /min [facility] 06-20-2024 11:00-0500 SaO2% (BldA) [Mass fraction] 98 % [facility] 06-20-2024 11:00-0500 Systolic blood pressure 154 mm[Hg] [facility] 04-03-2024 15:58-0500 Body height 162.56 cm [facility] 04-03-2024 15:58-0500 Body mass index (BMI) [Ratio] 24.9 kg/m2 [facility] 04-03-2024 15:58-0500 Body weight 65.77 kg [facility] 04-03-2024 15:58-0500 Diastolic blood pressure 89 mm[Hg] [facility] 04-03-2024 15:58-0500 Heart rate 63 /min [facility] 04-03-2024 15:58-0500 Respiratory rate 12 /min [facility] 04-03-2024 15:58-0500 Systolic blood pressure 151 mm[Hg] [facility] Encounters Encounter Date Encounter Type Care Provider Facility Start: 06-20-2024 End: 06-20-2024 ambulatory [facility] Work Phone: Start: 06-20-2024 End: 06-20-2024 Patient encounter procedure [facility] Work Phone: Start: 06-18-2024 Non-patient / Non-visit [facility] Work Phone: Start: 04-03-2024 End: 04-03-2024 ambulatory [facility] Work Phone: Start: 04-03-2024 End: 04-03-2024 Patient encounter procedure [facility] Work Phone: Start: 04-01-2024 Patient encounter procedure [facility] Start: 03-20-2024 Non-patient / Non-visit [facility] Work Phone: Start: 03-29-2023 End: 03-29-2023 ambulatory Mayito Costello Other [facility] Other Start: 03-29-2023 Telephone encounter [facility] Start: 01-04-2022 Adult health examination Mayito Costello Other [facility] Other Start: 05-18-2021 End: 05-19-[address] MAYITO COSTELLO Facility:[facility] Start: 11-12-2020 Encounter for genera l adult medical examination without abnormal findings DR MAYITO COSTELLO [facility] Start: 11-10-2020 End: 11-11-[address] MAYITO COSTELLO Facility:[facility] Start: 11-10-2020 End: 11-11-2020 Encounter for general adult medical examination without abnormal findings DR MAYITO COSTELLO Facility:[facility] Start: 10-22-2020 End: 10-23-[address] MAYITO COSTELLO Facility:[facility] Start: 09-21-2020 End: 09-22-[address] MAYITO COSTELLO Facility:[facility] Start: 08-31-2020 End: 09-01-2020 ambulatory LEONIDAS JIM Facility:[facility] Procedures Date Procedure Procedure Detail Performing Clinician Depression screening Camila Costello Other Plan of Treatment Date Care Activity Detail Author Comprehensive metabo lic 2000 panel - Serum or Plasma [facility] enter [facility] Payers Date Payer Category Payer Medicare [id number] 1959 Self-pay 1959 Unknown [id number] 1945 Unknown [id number] 2.16.84 [id number] 1945 Unknown [id number] 2.16.84 [id number] 1945 Unknown [id number] 2.16.84 [id number] 1945 Unknown [id number] 2.16.84 [id number] Private Health Insurance CLI [id number] Unknown [id number] 2.16.84 [id number] Social History Date Type Detail Facility Sex Assigned At [facility] Work Phone: Start: 04-03-2024 End: 06-20-2024 Sex Female (finding) [facility] Start: 1945 Sex Assigned At Female F [facility] Evaluation note 04-03-2024 Note Date & Type Note Facility 04-03-2024 Evaluation note Diagnosis Onset Date Resolution ANDRES (generalized anxiety disorder) acute April 03, 2024 3:35pm Hypercholesterolemia acute Nove mber 2023 3:35pm Hypertension acute March 3:35pm Mammogram declined acute Novemb er 2023 3:35pm Medicare annual wellness visit, subsequent acute April 03, 2024 3:35pm [facility] Work Phone: Evaluation note Note Date & Type Note Facility Evaluation note No Information [email or web address] Other Evaluation note Note Date & Type Note Facility Evaluation note Diagnosis Onset Date Resolution ANDRES (generalized anxiety disorder) acute April 03, 2024 3:35pm Hypercholesterolemia acute Nove mber 2023 3:35pm Hypertension acute March 3:35pm Mammogram declined acute Novemb er 2023 3:35pm Medicare annual wellness visit, subsequent acute April 03, 2024 3:35pm [facility] Work Phone: History general Narrative - Reported Note Date & Type Note Facility History general Narrative - Reported Type Medical History HTN Medical History ANDRES Medical History LBBB Medical History HLD Surgical History Hydatidiform mole [facility] Other Summary Purpose Family History No Family History Records Found Advance Directives Advance Directive Response Recorded Date/ Time Advance Directives No February 15, 2024 2:00pm Chief Complaint and Reason for Visit Chief Complaint Admit Date Wellness April 03, 2024 3:35pm not feeling well June 20, 2024 1 0:50am Reason for Visit Admit Date ANDRES (generalized anxiety disorder) Novem 2023 3:35pm Hypercholesterolemia April 03, 2024 3:35pm Hypertension April 03, 2024 3:35pm Mammogram declined April 03, 2024 3:35pm Medicare annual wellness visit, subseque nt April 03, 2024 3:35pm Chief Complaint Admit Date CC Adult Risk Stratification March 12:00pm Wellness April 03, 2024 3:35pm Reason for Visit Admit Date ANDRES (generalized anxiety disorder) Novem 2023 3:35pm Hypercholesterolemia April 03, 2024 3:35pm Hypertension April 03, 2024 3:35pm Mammogram declined April 03, 2024 3:35pm Medicare annual wellness visit, subseque nt April 03, 2024 3:35pm Chief Complaint Admit Date Wellness April 03, 2024 3:35pm not feeling well June 20, 2024 1 0:50am Additional Source Comments INFORMATION SOURCE (unrecogn ized section and content) DATE CREATED AUTHOR 05/28/2021 [facility] REASON FOR VISIT (unrecogniz ed section and content) Lab results Care Teams (unrecognized sec tion and content) Team Status: Active Member Role Status Dates Mayito Costello DO Primary Care Provider Active Team Status: Inactive Member Role Status Dates Mayito Costello DO Primary Care Provide r, Attending Provider Active Start: April 03, 2024 End: April 03, 2024 Team Status: Active Member Role Status Dates Mayito Costello DO Primary Care Provide r, Attending Provider Active Start: June 18, 2024 Team Status: Inactive Member Role Status Dates Mayito Costello DO Primary Care Provide r, Attending Provider Active Start: June 20, 2024 End: June 20, 2024 Team Status: Active Member Role Status Dates Mayito Costello DO Primary Care Provider Active Team Status: Active Member Role Status Natan Costello DO Primary Care Provide r, Attending Provider Active Start: March 20, 2024 Team Status: Inactive Member Role Status Dates Mayito Costello DO Primary Care Provide r, Attending Provider Active Start: April 03, 2024 End: November 20th, 2024 Team Status: Active Member Role Status Dates Mayito Costello , DO Primary Care Provide r, Attending Provider Active Start: June 18, 2024 Team Status: Inactive Member Role Status Dates Mayito Costello , DO Primary Care Provide r, Attending Provider Active Start: June 20, 2024 End: June 20, 2024 Goals (unrecognized section and content) Goals [...] BE BASED ON THE PRIMARY CLINICAL RECORDS. [facility] [employer] provides no warranty or guarantee of the accuracy or completeness of information in this document.
--- NOTE | 2024-06-21 09:14 | XR_ITS ---
The [address] [address] Patient Name: JENNA OSWALD MRN: [id number] date: 1945 Sex: F Assigned Patient Location: CT Current Patient Location: CT Accession/Order Number: [id number] Exam Date: 06/21/2024 09:25 Report Date: 06/21/2024 14:39 At the request of: AZ COSTELLO Procedure: XR chest 2V PROCEDURE: XR chest 2V DATE: 06/21/2024 9:25 AM EST COMPARISONS: None. CLINICAL INDICATION: 79 years Female Hypertension, Obstructive Hyperbilirubinemia FINDINGS: The heart is upper normal in size. There is evidence of mild diffuse chronic lung changes. There is no evidence of pleural effusion or pneumothorax. XR/XR chest 2V IMPRESSION: Chest radiograph show nothing to suggest acute findings Electronically authenticated by: NAA RUIZ Date: 06/21/2024 14:39
== END 2024-06-21 08:27 | disposition home or self-care (01) ==
LOC: CT 08:26
PROVIDERS: PCP Internal Medicine; Visit Provider Internal Medicine
DX: K83.1 Obstruction of bile duct (principal); I10 Essential (primary) hypertension; R94.8 Abnormal results of function studies of other organs and systems; K62.89 Other specified diseases of anus and rectum
CPT/HCPCS: 71046; 74177; Q9967

== ENCOUNTER 2024-07-01 10:32 | Emergency (ER) | payer MEDICARE, SELFPAY ==
[2024-07-01] VITALS (48 sets, daily range): BP systolic 96–136; BP diastolic 51–75; PULSE 76–143; TEMP 36.5–36.9; O2SAT 95–100; BMI 28.0
--- NOTE | 2024-07-01 11:03 | ED.GENADUL1 ---
HPI HPI - General Adult General Chief complaint: Weakness Stated complaint: WEAKNESS Time Seen by Provider: 07/01/24 10:54 Source: patient Mode of arrival: ambulance Limitations: no limitations History of Present Illness HPI narrative: Patient is a 79-year-old female who is presenting to the ER today with chief complaint of a fall, lightheaded, dizzy, and low blood pressure. Patient had a outpatient biopsy done on Monday in [place]. Patient has been very healthy up until approxi-[address] Pepe licea had called to give me information on this patient as well. Patient had a ERCP done on Monday, had a liver biopsy done as well. Patient has some type of mass in the liver that was just found. Patient has been jaundiced for approximately 1 month, she still jaundiced at this time. Patient had outpatient procedure done on Monday, she was sent home. Patient's only had 1 glass of water and 2 cups of soup broth in the past 2 and half days. Patient also have 1 episode of melena this morning as well. Patient was lightheaded and weak yesterday and today. Patient stated she was lightheaded, fell today at home and hit the left side of her cheek against the vanity. Patient has minimal pain to her left cheek at this time, no blood thinners. She has no headache or neck pain. She has no chest pain or shortness of breath. Patient does have deep pain to right upper quadrant where patient feels that is where they did the biopsy. Patient had 3 scopes that were done, 2 in the mouth and one up the rectum. Patient was told that she would have pain to the right upper quadrant for the next several days. Patient is still jaundice, patient also was told that she be jaundice for the next 10 days. Patient has no chest pain or shortness of breath. Mild nausea, no vomiting. No other acute complaints. No extremity complaints. All systems are negative except as noted/marked. All systems reviewed and otherwise negative. Nurses note and vital signs reviewed and patient is not hypoxic. General: The patient appears well and in no apparent distress. Patient is resting comfortably on cart. Patient is not toxic, lethargic, or listless Skin: Patient is jaundice, color looks similar today as it did on Monday according to 2 sons at bedside. Warm, dry, no pallor noted. There is no rash noted. No petechiae, purpura. Head: Normocephalic, atraumatic Eye: Scleral icterus, , no drainage, EOMI. PERRL Ears, Nose, Mouth, and Throat: oral mucosa is moist. Nares patent. Mouth without vesicles. Cardiovascular: Regular Rate and Rhythm, no murmur, gallop, rub Respiratory: Patient is in no distress, no accessory muscle use, lungs are clear to auscultation, no wheezing, rales or rhonchi Back: non-tender, no CVA tenderness bilaterally to percussion. No CT LS midline pain GI: Mild right upper quadrant tenderness palpation, no peritoneal signs. No flank pain bilateral. No midepigastric tenderness to palpation. Patient has no surgical incision scars to her abdomen, ERCP and biopsies were done by endoscopic he and the stent was placed by endoscopically as well. Otherwise no tenderness to palpation, no masses appreciated. No rebound, guarding, or rigidity noted. No distention Musculoskeletal: Patient has full range of motion of all of the extremities, no motor, sensory, or focal neurological deficits Neurological: A&O x4, normal speech Psychiatric: Cooperative Related Data Home Medications ?Medication ?Instructions ?Recorded ?Confirmed diazepam 2 mg tablet 2 mg PO Q6H PRN anxiety 07/01/24 07/01/24 losartan 25 mg tablet 25 mg PO DAILY 07/01/24 07/01/24 metoprolol tartrate 25 mg tablet 12.5 mg PO DAILY 07/01/24 07/01/24 Allergies Allergy/AdvReac Type Severity Reaction Status Date / Time penicillin G AdvReac Intermediate Unknown Verified 07/01/24 10:34 Sulfa (Sulfonamide AdvReac Intermediate Unknown Verified 07/01/24 10:34 Antibiotics) Opioid HPI Opioid Management Most Recent Opioid Data: No Data to Display [facility] Medical History (Updated 07/01/24 @ 18:33 by Saad Devi MD) Bundle branch block, left ?I44.7 - Left bundle-branch block, unspecified (ICD-10) 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.0 - Neoplasm of unspecified behavior of digestive system (ICD-10) Social History Little interest or pleasure in doing things: not at all Feeling down, depressed, or hopeless: not at all Exam Constitutional Vital Signs, click to edit/add: Last Vital Signs Temp 97.7 F 07/01/24 17:45 Pulse 91 H 07/01/24 19:00 Resp 19 07/01/24 19:00 BP 117/62 07/01/24 19:00 Pulse Ox 96 07/01/24 19:00 O2 Del Method Room Air 07/01/24 10:34 Course Vital Signs Vital signs: Vital Signs Temperature 98.5 F 07/01/24 10:34 Pulse Rate 92 H 07/01/24 10:34 Respiratory Rate 18 07/01/24 10:34 Blood Pressure 109/66 07/01/24 10:34 Pulse Oximetry 98 07/01/24 10:34 Oxygen Delivery Method Room Air 07/01/24 10:34 Temperature 97.7 F 07/01/24 17:45 Pulse Rate 91 H 07/01/24 19:00 Respiratory Rate 19 07/01/24 19:00 Blood Pressure 117/62 07/01/24 19:00 Pulse Oximetry 96 07/01/24 19:00 Oxygen Delivery Method Room Air 07/01/24 10:34 Medical Decision Making MDM Narrative Medical decision making narrative: Patient knows that she has a left bundle branch block in her history. Patient was lightheaded dizzy and had a near syncopal episode. Patient is minimal pain to the left cheek. CT of the head, EKG, lab work will be done. Patient received 1 L of fluid that started by EMS staff. Patient was given Zofran and oral challenge. 1400 patient has multiple lab abnormalities. Patient's lab work has been compared to June 18. Patient's white blood cell count is 25, patient's hemoglobin is 7.9, hematocrit is 22. Sodium 133, potassium 3.2 BUN of 43, calcium 8.1, total bilirubin 10.9, direct bilirubin 9.2, AST 204, ALT 269, alk phos 821, lipase 1459. 1441 I have spoken to [facility] access myself, Jameson legal administrative secretary had talking to Félix the first time. 30 minutes later we called and I spoke to Félix a second time discussing the need for ER to ER transfer. I discussed with Félix concern for postop complication, patient's drop in hemoglobin of 4 points in 2 weeks, also with elevated lipase of approximately 1500. She is aware of hypotension, tachycardia, and concern for stability. We are still waiting for Dr. Clement to call back. 1517 I have spoken to Dr. Clement, physician who help with surgical procedures on Monday. I had a 10-minute discussion with him about patient's case in the ER today. We then spoke to the ER physician, Dr. Johnston for another [address] Clement presented the case to Dr. Johnston and discussed with him the need for ER to ER transfer secondary to concern for possible postop bleed. Dr. Johnston asked for rectal exam to be done which I completed. Also, Dr. Clement asked for CT of the abdomen pelvis with IV contrast to be done to rule out any type of acute bleeding. Both these orders have been done and completed prior to transfer. 1825 There were 2 units of blood ordered, I only intended to transfuse 1 unit of blood. Patient blood pressure is 127/65, heart rate 85, patient has been doing much better, feeling more comfortable. 1835 Greater than 25-30 minutes were spent talking to patient, and 2 sons intermittently at bedside during patient's lengthy ER stay and transfer. They have been updated multiple times. Patient's blood pressure, heart rate has improved after fluids and Lopressor that was given earlier. Patient is almost finished with her 1 unit of blood. 1900 EMS staff has arrived to transport patient. Patient is hemodynamically stable for transport. Patient thankful for help and care today and thoroughness we provided. Rectal exam was done with Tiffanie nurse purchasing internship at bedside. Patient had no signs of external hemorrhoids. Patient had no internal hemorrhoids, dark brown stool was obtained. Hemoccult sent to lab. I do not have the results of Hemoccult at transfer. CT of the abdomen and pelvis with IV contrast showed no significant signs of bleeding or collection of blood. Reports were sent digitally to [facility] and a copy of the report was sent with EMS staff as well. Critical care time 55 minutes exclusive from separate billable procedures that were performed. The following was considered in the determination of critical care but not limited to the level of medical decision making, intensive cardiac and/or respiratory monitoring, frequent vital sign monitoring, evaluation of laboratory studies, evaluation of radiographic studies, oxygen monitoring, and constant monitoring and speaking to family at bedside Lab Data Lab results reviewed: Yes I reviewed the patient's lab results Labs: Lab Results 07/01/24 07/01/24 07/01/24 Range/Units 11:10 11:36 13:24 WBC 25.6 H (4.0-11.0) 10^3/uL RBC 2.65 L (4.20-5.40) 10^6/uL Hgb 7.9 L (12.0-16.0) g/dL Hct 22.9 L* (36.0-48.0) % MCV 86.4 (81.0-99.0) fL MCH 29.8 (26.7-34.0) pg MCHC 34.5 (29.9-35.2) g/dL RDW 19.1 H (11.0-15.0) % Plt Count 299 (150-450) 10^3/uL MPV 12.8 (9.5-13.5) fL Seg Neuts % (Manual) 78.0 H (43.0-75.0) Band Neutrophils % 0.0 (0-5) % Lymphocytes % (Manual) 13.0 L (20.5-60.0) % Monocytes % (Manual) 7.0 (1.7-12.0) % Eosinophils % (Manual) 0.0 L (0.9-7.0) % Basophils % (Manual) 0.0 L (0.2-2.0) % Metamyelocytes % 2.0 Neutrophils # (Manual) 19.96 H (1.4-6.5) 10^3/uL Band Neutrophils # 0.0 (0.0-0.3) 10^3/uL Lymphocytes # (Manual) 3.32 (1.20-3.80) 10^3/uL Monocytes # (Manual) 1.79 H (0.30-0.80) 10^3/uL Eosinophils # (Manual) 0.00 (0.00-0.70) 10^3/uL Basophils # (Manual) 0.00 (0.00-0.10) 10^3/uL Metamyelocytes # 0.51 Hypersegmented Neuts 1+ Anisocytosis 1+ Sodium 133 L (136-145) mmol/L Potassium 3.2 L (3.5-5.1) mmol/L Chloride 102 (98-107) mmol/L Carbon Dioxide 26.8 (21.0-32.0) mmol/L Anion Gap 7.4 BUN 43.0 H (7.0-18.0) mg/dL Creatinine 0.90 (0.55-1.02) mg/dL Est GFR ( Amer) >60 (>=60 mL/min/1.73m^2) Est GFR (Non-Af Amer) >60 (>=60 mL/min/1.73m^2) BUN/Creatinine Ratio 47.8 Glucose 111 H (74-106) mg/dL Calcium 8.1 L (8.5-10.1) mg/dL Magnesium 1.6 L (1.8-2.4) mg/dL Total Bilirubin 10.9 H (0.2-1.0) mg/dL Direct Bilirubin 9.2 H* (0.0-0.2) mg/dL AST 204 H (15-37) U/L ALT 269 H (14-59) U/L Alkaline Phosphatase 821 H (46-116) U/L Troponin I High Sens 26.3 (4.0-51.3) pg/mL Total Protein 4.6 L (6.4-8.2) g/dL Albumin 1.7 L (3.4-5.0) g/dL Globulin 2.9 g/dL Albumin/Globulin Ratio 0.6 Lipase 1459.0 H* (16.0-77.0) U/L Urine Color Dk. orange (YELLOW) Urine Clarity Clear (CLEAR) Urine pH 5.0 (5.0-9.0) Ur Specific [place] <=1.005 A (1.005-1.025) Urine Protein Trace (NEG/TRACE) mg/dL Urine Glucose (UA) 100 A (NEGATIVE) mg/dL Urine Ketones Negative (NEGATIVE) mg/dL Urine Occult Blood Large A (NEGATIVE) Urine Nitrite Negative (NEGATIVE) Urine Bilirubin Moderate A (NEGATIVE) Urine Urobilinogen 4.0 A (0.2-1.0) EU/dL Ur Leukocyte Esterase Small A (NEGATIVE) Urine RBC 5-10 A (0-2) #/HPF Urine WBC 5-10 A (NONE SEEN) #/HPF Ur Squamous Epith Cells Few A (NONE/RARE) #/LPF Urine Crystals None seen (None Seen) #/HPF Urine Bacteria Trace A (NONE SEEN) #/HPF Urine Casts Seen A (NONE SEEN) #/LPF Hyaline Casts Rare Urine Mucus None seen (NONE SEEN) Ur Culture Indicated? Yes-[facility] Stool Occult Blood POC Glucose 110 H (74-106) mg/dL Blood Type Antibody Screen Crossmatch 07/01/24 07/01/24 Range/Units 14:18 16:00 WBC (4.0-11.0) 10^3/uL RBC (4.20-5.40) 10^6/uL Hgb (12.0-16.0) g/dL Hct (36.0-48.0) % MCV (81.0-99.0) fL MCH (26.7-34.0) pg MCHC (29.9-35.2) g/dL RDW (11.0-15.0) % Plt Count (150-450) 10^3/uL MPV (9.5-13.5) fL Seg Neuts % (Manual) (43.0-75.0) Band Neutrophils % (0-5) % Lymphocytes % (Manual) (20.5-60.0) % Monocytes % (Manual) (1.7-12.0) % Eosinophils % (Manual) (0.9-7.0) % Basophils % (Manual) (0.2-2.0) % Metamyelocytes % Neutrophils # (Manual) (1.4-6.5) 10^3/uL Band Neutrophils # (0.0-0.3) 10^3/uL Lymphocytes # (Manual) (1.20-3.80) 10^3/uL Monocytes # (Manual) (0.30-0.80) 10^3/uL Eosinophils # (Manual) (0.00-0.70) 10^3/uL Basophils # (Manual) (0.00-0.10) 10^3/uL Metamyelocytes # Hypersegmented Neuts Anisocytosis Sodium (136-145) mmol/L Potassium (3.5-5.1) mmol/L Chloride (98-107) mmol/L Carbon Dioxide (21.0-32.0) mmol/L Anion Gap BUN (7.0-18.0) mg/dL Creatinine (0.55-1.02) mg/dL Est GFR ( Amer) (>=60 mL/min/1.73m^2) Est GFR (Non-Af Amer) (>=60 mL/min/1.73m^2) BUN/Creatinine Ratio Glucose (74-106) mg/dL Calcium (8.5-10.1) mg/dL Magnesium (1.8-2.4) mg/dL Total Bilirubin (0.2-1.0) mg/dL Direct Bilirubin (0.0-0.2) mg/dL AST (15-37) U/L ALT (14-59) U/L Alkaline Phosphatase (46-116) U/L Troponin I High Sens (4.0-51.3) pg/mL Total Protein (6.4-8.2) g/dL Albumin (3.4-5.0) g/dL Globulin g/dL Albumin/Globulin Ratio Lipase (16.0-77.0) U/L Urine Color (YELLOW) Urine Clarity (CLEAR) Urine pH (5.0-9.0) Ur Specific [place] (1.005-1.025) Urine Protein (NEG/TRACE) mg/dL Urine Glucose (UA) (NEGATIVE) mg/dL Urine Ketones (NEGATIVE) mg/dL Urine Occult Blood (NEGATIVE) Urine Nitrite (NEGATIVE) Urine Bilirubin (NEGATIVE) Urine Urobilinogen (0.2-1.0) EU/dL Ur Leukocyte Esterase (NEGATIVE) Urine RBC (0-2) #/HPF Urine WBC (NONE SEEN) #/HPF Ur Squamous Epith Cells (NONE/RARE) #/LPF Urine Crystals (None Seen) #/HPF Urine Bacteria (NONE SEEN) #/HPF Urine Casts (NONE SEEN) #/LPF Hyaline Casts Urine Mucus (NONE SEEN) Ur Culture Indicated? Stool Occult Blood Positive A POC Glucose (74-106) mg/dL Blood Type O Positive Antibody Screen Negative Crossmatch See Detail Imaging Data CT scan - pelvis: Radiologist's impression: ITS Impressions Head CT 07/01/24 11:09 IMPRESSION: No acute intracranial process is identified. Electronically authenticated by: VESTA MUNOZ Date: 07/01/2024 13:28 Abdomen/Pelvis CT 07/01/24 15:23 IMPRESSION: 1. Interval placement of internal biliary stents which extend into the left hepatic lobe with associated decompression of the previously dilated intrahepatic bile ducts within the left hepatic lobe. Persistently dilated intrahepatic bile ducts within the right hepatic lobe. 2. Ill-defined heterogeneous mass within hepatic segments 4A and 4B measuring 5.2 x 4.8 cm is again noted. 3. Heterogeneously enhancing rectal mass is again identified which is not well assessed on this examination. Recommend correlation with digital rectal examination. 4. Stable bilateral renal cysts. Electronically authenticated by: VESTA MUNOZ Date: 07/01/2024 17:52 ECG Data Attestation: I personally reviewed and interpreted this ECG as follows: (EKG interpretation. Normal sinus rhythm 82 beats a minute. Normal axis deviation. Left bundle branch block noted. QTc of 446. Will compare to old EKG if available, compared to old EKG on 2020, patient has a history of left bundle branch block.) Interpretation: Repeat EKG. EKG #2. Baseline normal sinus rhythm, tachycardic at 100. Left bundle branch block noted. This is old left bundle branch block. QTc of 437. No other acute changes on EKG Discharge Plan Discharge Chief Complaint: Weakness Clinical Impression: Anemia, Hypotension, Near syncope, Pancreatitis, CHI (closed head injury), Facial contusion Patient Disposition: [facility] Time of Disposition Decision: 15:40 Discharge Location: The [facility] Discharge location: ER to ER transfer, Dr. Johnston is the accepting ER physician. Dr. Clement GI Condition: Critical
--- NOTE | 2024-07-01 11:07 | ECG_ITS ---
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
--- NOTE | 2024-07-01 11:09 | CT_ITS ---
The [address] [address] Patient Name: JENNA OSWALD MRN: [id number] date: 1945 Sex: F Assigned Patient Location: ER Current Patient Location: ER Accession/Order Number: [id number] Exam Date: 07/01/2024 11:37 Report Date: 07/01/2024 13:28 At the request of: MAURO HAGEN Procedure: CT head/brain wo con EXAM: CT head/brain wo con. HISTORY: Fall, weakness, close head injury. COMPARISON: None. TECHNIQUE: Unenhanced transaxial tomographic sections obtained from the vertex through the posterior fossa. FINDINGS: No midline shift, mass effect or intracranial hemorrhage. The mastoid air cells and the visualized paranasal sinuses are clear. No evidence of calvarial fracture. CT/CT head/brain wo con IMPRESSION: No acute intracranial process is identified. Electronically authenticated by: VESTA MUNOZ Date: 07/01/2024 13:28
[2024-07-01 11:12] LABS: Glucometer 110 mg/dL (74-106)
[2024-07-01] MEDS: 0.9 % SODIUM CHLORIDE 1,000 ML 999 ML IV (11:29)
[2024-07-01] MEDS: ONDANSETRON PF 4 MG/2 ML VIAL IV (11:30)
[2024-07-01 11:45] LABS: Hemoglobin 7.9 g/dL (12.0-16.0); Mean Corpuscular HGB Conc 34.5 g/dL (29.9-35.2); Mean Corpuscular Hemoglobin 29.8 pg (26.7-34.0); Mean Corpuscular Volume 86.4 fL (81.0-99.0); Mean Platelet Volume 12.8 fL (9.5-13.5); Platelet Count 299 10^3/uL (150-450); Red Blood Count 2.65 10^6/uL (4.20-5.40); Red Cell Distribution Width 19.1 % (11.0-15.0); White Blood Count 25.6 10^3/uL (4.0-11.0)
[2024-07-01 11:54] LABS: Hematocrit 22.9 % (36.0-48.0)
[2024-07-01 12:00] LABS: Anion Gap 7.4; BUN Creatinine Ratio 47.8; Calcium 8.1 mg/dL (8.5-10.1); Carbon Dioxide 26.8 mmol/L (21.0-32.0); Chloride 102 mmol/L (98-107); Estimated GFR (African America >60 (>=60 mL/min/1.73m^2); Estimated GFR (Non-African Ame >60 (>=60 mL/min/1.73m^2); Glucose 111 mg/dL (74-106); Magnesium 1.6 mg/dL (1.8-2.4); Potassium 3.2 mmol/L (3.5-5.1); Sodium 133 mmol/L (136-145)
[2024-07-01 12:02] LABS: Troponin I High Sensitivity 26.3 pg/mL (4.0-51.3)
[2024-07-01 12:03] LABS: Alanine Aminotransferase 269 U/L (14-59); Albumin Globulin Ratio 0.6; Albumin Level 1.7 g/dL (3.4-5.0); Alkaline Phosphatase 821 U/L (46-116); Aspartate Amino Transferase 204 U/L (15-37); Bilirubin Total 10.9 mg/dL (0.2-1.0); Globulin 2.9 g/dL; Total Protein 4.6 g/dL (6.4-8.2)
[2024-07-01 12:05] LABS: Bilirubin Direct 9.2 mg/dL (0.0-0.2)
[2024-07-01 12:19] LABS: Lymphocytes Absolute Manual 3.32 10^3/uL (1.20-3.80); Monocytes Absolute Manual 1.79 10^3/uL (0.30-0.80)
[2024-07-01 12:20] LABS: Hypersegmented Neutrophils 1+
[2024-07-01 12:23] LABS: Metamyelocytes Absolute Manual 0.51; Segmented Neut Absolute Manual 19.96 10^3/uL (1.4-6.5)
[2024-07-01 12:31] LABS: Anisocytosis 1+
[2024-07-01 13:43] LABS: Bilirubin Urine MODERATE (NEGATIVE); Blood Urine LARGE (NEGATIVE); Clarity Urine CLEAR (CLEAR); Color Urine DK. ORANGE (YELLOW); Glucose Urine UA 100 mg/dL (NEGATIVE); Ketones Urine NEGATIVE (NEGATIVE); Leukocyte Esterase Urine SMALL (NEGATIVE); Nitrite Urine NEGATIVE (NEGATIVE); Protein Urine TRACE mg/dL (NEG/TRACE); Specific Gravity Urine <=1.005 (1.005-1.025)
[2024-07-01 13:53] LABS: Bacteria Urine TRACE #/HPF (NONE SEEN); Crystals Seen? None Seen #/HPF (None Seen); Mucus Urine NONE SEEN (NONE SEEN); Squamous Epithelial Cell Urine FEW #/LPF (NONE/RARE); Urine Culture Indicated YES-FRMC
[2024-07-01 13:54] LABS: Cast Seen? SEEN #/LPF (NONE SEEN); Hyaline Casts Urine RARE
--- NOTE | 2024-07-01 14:00 | ECG_ITS ---
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
[2024-07-01] MEDS: PANTOPRAZOLE SODIUM 40 MG VIAL IV (14:21)
[2024-07-01] MEDS: METOPROLOL TARTRATE 5 MG/5 ML VIAL 2.5 MG IVP (15:08)
[2024-07-01] MEDS: 0.9 % SODIUM CHLORIDE 1,000 ML 1000 ML IV (15:08)
--- NOTE | 2024-07-01 15:23 | CT_ITS ---
The [address] [address] Patient Name: JENNA OSWALD MRN: [id number] date: 1945 Sex: F Assigned Patient Location: ER Current Patient Location: ER Accession/Order Number: [id number] Exam Date: 07/01/2024 16:33 Report Date: 07/01/2024 17:52 At the request of: MAURO HAGEN Procedure: CT abdomen pelvis w con EXAM: CT abdomen pelvis w con HISTORY: Anemia, rule out bleed COMPARISON: 06/21/2024. TECHNIQUE: Enhanced helical acquisition through the abdomen and the pelvis. FINDINGS: Bibasilar atelectasis. The pleural spaces are clear. Interval placement of internal biliary stents with a proximal TIPS within the left lobe of the liver. Associated decompression of the intrahepatic biliary ductal dilatation within the left hepatic lobe. Persistent intrahepatic biliary ductal dilatation within the right hepatic lobe. Ill-defined heterogeneous low-attenuation lesion within hepatic segments 4A and 4B which maximally measures approximately 5.2 x 4.8 cm. Radiographic contrast within the gallbladder. The spleen, pancreas and the adrenal glands are unremarkable. Bilateral renal cysts, unchanged. Moderate diffuse atherosclerotic vascular calcifications. No enlarged lymph nodes within the abdomen or the pelvis. The appendix is not identified. Moderate stool burden. No ascites or focal intraperitoneal fluid collections. Questionable rectal mass again identified. CT/CT abdomen pelvis w con IMPRESSION: 1. Interval placement of internal biliary stents which extend into the left hepatic lobe with associated decompression of the previously dilated intrahepatic bile ducts within the left hepatic lobe. Persistently dilated intrahepatic bile ducts within the right hepatic lobe. 2. Ill-defined heterogeneous mass within hepatic segments 4A and 4B measuring 5.2 x 4.8 cm is again noted. 3. Heterogeneously enhancing rectal mass is again identified which is not well assessed on this examination. Recommend correlation with digital rectal examination. 4. Stable bilateral renal cysts. Electronically authenticated by: VESTA MUNOZ Date: 07/01/2024 17:52
[2024-07-01] MEDS: 0.9 % SODIUM CHLORIDE 500 ML IV (16:30)
[2024-07-01 18:52] LABS: Internal Control Within Normal Limits; Occult Blood Positive
== END 2024-07-01 19:46 | disposition short-term general hospital (02) ==
PROVIDERS: Emergency Provider Emergency Medicine; PCP Internal Medicine
DX: D64.9 Anemia, unspecified (principal); R55 Syncope and collapse; K85.90 Acute pancreatitis without necrosis or infection, unspecified; Z98.890 Other specified postprocedural states; R17 Unspecified jaundice; K92.1 Melena; R53.1 Weakness; R10.11 Right upper quadrant pain; I95.9 Hypotension, unspecified; R00.0 Tachycardia, unspecified; S09.8XXA Other specified injuries of head, initial encounter; S00.83XA Contusion of other part of head, initial encounter; W17.89XA Other fall from one level to another, initial encounter; W22.03XA Walked into furniture, initial encounter
CPT/HCPCS: 36415; 36430; 70450; 74177; 80048; 80076; 81001; 83690; 83735; 84484; 85007; 85027; 86850; 86900; 86901; 86923; 87086; 93005; 96361; 96374; 96375; 99285; G0328; J2405; P9016; Q9967

== ENCOUNTER 2024-08-12 07:26 | Outpatient (OUT) | payer MEDICARE, SELFPAY ==
--- OUTSIDE RECORDS SUMMARY | 2024-08-12 07:29 | XMS_ITS | CCD ---
Author Organization [facility] Care Team Providers Care Political Organizer Name Role Phone DR MAYITO COSTELLO Primary Care Unavailable LEONIDAS JIM Attending Unavailable ROSS, LEONIDAS Consulting Unavailable ROSS, [...] Unavailable BALL, DR BERNARDO Primary Care Unavailable Mayito Costello Unavailable Pay Saad MACEDO Attending Provider PaySaad Attending Unavailable PaySaad Admitting Unavailable Ball Mayito MACEDO Primary Care Provider SAAD HAGEN Referring Unavailable HORANICHIARA Admitting Unavailable ABLERT COLLIER Attending Unavailable NAWRAS, ALI Referring Unavailable NAWRAS, ALI Attending Unavailable . INDIO POWERS Referring Unavailable HAMOUDA, CHRISTOPHER M Referring Unavailable HAMOUDA, CHRISTOPHER M Referring Unavailable NAWRAS, ALI Referring Unavailable NAWRAS, ALI Admitting Unavailable NAWRAS, BRADLEY Attending Unavailable MAYITO COSTELLO Referring Unavailable ENIX, BENITA Referring Unavailable REECE ROLAND Attending Unavailable ISRA MORALES Referring Unavailable TRANG MAYITO E Primary Care Unavailable ABHYANKAR, REUBEN Attending Unavailable HUBERT BOURNERSH Referring Unavailable BALL, MAYITO E Primary Care Unavailable ABHYANKAR, REUBEN Referring Unavailable BALL, MAYITO E Primary Care Unavailable TRANG MAYITO E Referring Unavailable ABHYANKAR, REUBEN Attending Unavailable Allergies Allergy Classification Reported Allergen(s) Allergy Type Date of Onset Reaction(s) Facility (2 sources) Penicillin; Translations: [PENICILLIN] Drug Allergy 05-15-18 70 [facility] Repository (1 source) Sulfonamides (Antibiotic) Drug allergy (disorder) 05-15-18 60 [facility] Repository (13 sources) sulfADIAZINE; Translations: [SULFADIAZINE] Drug Allergy 04-03-20 24 [facility] (1 source) patient allergy list reviewed by nurse or physicia Propensity to adverse reactions 01-09-20 Comment:Done [employer] Other (1 source) Substance with penicillin structure and antibacterial mechanism of action (substance) Drug allergy 01-08-20 Unknown [employer] Other (13 sources) Penicillins; Translations: [Penicillins] Allergy to substance 04-03-20 [facility] Comment on above: Onset Date: 01/08/20 (1 source) sulfADIAZINE Drug Allergy 06-24-19 [facility] Repository (1 source) cefTRIAXone; Translations: [CEFTRIAXONE] Drug Allergy 07-09-19 [facility] Repository (1 source) meropenem; Translations: [MEROPENEM] Drug Allergy 07-09-19 [facility] Repository Medications Current Medications Medication Drug Class(es) Dates Sig (Normalized) Sig (Original) diazePAM 2 mg oral tablet (20 sources) Benzodiazepine Start: 06-17-2024 take 1 tablet [...] 2024 12:20pm June 17, 2024 6:11pm Start: 03-20-2023 End: 06-11-2024 take 1 tablet by mouth every six hours as needed for anxiety Diazepam 2 mg tablet Discontinued 2 MG PO Every 6 hours as needed for anxiety October 05, 2023 2:54pm June 11, 2024 9:44pm hydrocortisone 25 mg/ml topical cream (14 sources) Corticosteroid Start: 04-30-2024 Hydrocortisone 2.5 % cream Active 0 .ROUTE .COMPLEX 28.35 April 30, 2024 5:43pm APPLY TOPICALLY TWICE DAILY NEEDED FOR SKIN IRRITATION FOR 30 DAYS Start: 04-30-2024 hydrocortisone 2.5 % cream APPLY TOPICALLY TWICE DAILY NEEDED FOR SKIN IRRITATION FOR 30 DAYS 04/30/2024 Active Start: 04-03-2024 End: 04-30-2024 Hydrocortisone 2.5 % cream D iscontinued 1 APPLIC TOPICAL Twice daily as needed for skin irritation April 03, 2024 12:00am April 30, 2024 5:43pm iv contrast (will be provided with radiology test) (4 sources) Start: 08-04-2024 End: 08-05-2024 inject 1 dose intravenously once iv contrast (will be provided with radiology test) Indications: 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 (HCC) , Rectal mass MRI TSP Inject, intravenously, once for 1 dose. No IV access, insert saline lock prior to the beginning of sedation, infusion, injection of imaging exam. Discontinue saline lock post exam. If Pt. has a central line or IVAD, may access for administration according to line specific nursing protocol. Once exam is complete flush line and de-access according to line specific nursing protocol in the MR contrast administration guidelines link. 1 Each 08/04/2024 08/05/2024 Active Start: 08-04-2024 End: 08-05-2024 iv contrast (will be provide d with radiology test) Indications: 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 (HCC) , Rectal mass MRI LSP Inject, intravenously, once for 1 dose. No IV access, insert saline lock prior to the beginning of sedation, infusion, injection of imaging exam. Discontinue saline lock post exam. If Pt. has a central line or IVAD, may access for administration according to line specific nursing protocol. Once exam is complete flush line and de-access according to line specific nursing protocol in the MR contrast administration guidelines link. 1 Each 08/04/2024 08/05/2024 Active metoprolol tartrate 25 mg oral tablet (20 sources) beta-Adrenergic Tamara Start: 07-04-2024 End: 10-10-2024 metoprolol tartrate, short acting, (LOPRESSOR) 25 mg tablet Take 12.5 mg by mouth. 07/04/2024 10/10/2024 Active Start: 09-28-2023 End: 03-14-2024 take 0.5 tablet by mouth twice daily Metoprolol Tartrate 25 mg tablet Discontinued 0 .ROUTE .COMPLEX December 24, 2023 1:02pm March 14, 2024 [...] TABLET BY MOUTH TWICE A DAY Active pantoprazole 40 mg delayed release oral tablet (7 sources) Proton Pump Inhibitor Start: 07-04-2024 End: 10-09-[address] (PROTONIX) 40 mg tablet Take 40 mg by mouth. 07/04/2024 10/09/2024 Active Completed/Discontinued Medications Medication Drug Class(es) Dates Sig (Normalized) Sig (Original) losartan potassium 25 mg oral tablet (20 sources) Angiotensin 2 Receptor Tamara Start: 10-02-2023 End: 06-17-2024 take 1 tablet by mouth once daily Losartan 25 mg tablet Discontinued 0 .ROUTE .COMPLEX March 21, 2024 10:39am June 17, 2024 6:11pm TAKE 1 TABLET BY MOUTH EVERY DAY Start: 09-28-2023 End: 10-02-2023 take 1 tablet by mouth once daily Losartan 25 mg tablet Discontinued 25 MG PO Daily September 27, 2023 11:00pm October 02, 2023 11:47am Problems Problem Classification Problem Date Documented Date Episodic/Chronic Acute posthemorrhagic anemia (2 sources) Acute posthemorrhagic anemia; Translations: [Acute posthemorrhagic anemia] 07-15-2024 Episodic Allergic reactions (2 sources) Urticaria, unspecified; Translations: [Urticaria, unspecified] Onset: Episodic Anal and rectal conditions (15 sources) Rectal mass; Translations: [Other specified diseases of anus and rectum] Onset: 5 06-24-2024 Episodic Anxiety disorders (16 sources) Generalized anxiety disorder; Translations: [Generalized anxiety disorder] 09-29-2023 Chronic Bacterial infection; unspecified site (4 sources) Bacteremia; Translations: [Unspecified Escherichia coli [E. 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 Cardiac dysrhythmias (6 sources) Palpitations; Translations: [Palpitations] Onset: 1 Episodic Conduction disorders (1 source) Left bundle branch block; Translations: [Left bundle-branch block, unspecified] Chronic Disorders of lipid metabolism (11 sources) Familial hypercholesterolemia; Translations: [Hypercholesterolemia] Onset: 1 04-01-2024 Chronic E Codes: Fall (2 sources) Unspecified fall, initial encounter; Translations: [Unspecified fall, initial encounter] Onset: 5 Episodic Essential hypertension (20 sources) Essential (primary) hypertension; Translations: [Essential hypertension] Onset: 1 04-01-2024 Chronic Fluid and electrolyte disorders (2 sources) Hypokalemia; Translations: [Hypokalemia] Onset: 5 Episodic Gastritis and duodenitis (2 sources) Duodenitis with bleeding; Translations: [Duodenitis with bleeding] Onset: 5 Episodic Gastrointestinal hemorrhage (2 sources) Chronic or unspecified gastric ulcer with hemorrhage; Translations: [Chronic or unspecified gastric ulcer with hemorrhage] Onset: 5 Chronic Gastrointestinal hemorrhage (2 sources) Gastrointestinal hemorrhage, unspecified; Translations: [Gastrointestinal hemorrhage, unspecified] Onset: 5 Episodic Immunizations and screening for infectious disease (4 sources) Encounter for immunization; Translations: [ENCOUNTER FOR IMMUNIZATION] Onset: 2 Episodic Other aftercare (5 sources) Drug therapy finding; Translations: [Other senior living (current) drug therapy] 04-03-2024 Episodic Other bone disease and musculoskeletal deformities (1 source) Mass of musculoskeletal structure; Translations: [Other specified disorders of bone, other site] 08-04-2024 Episodic Other inflammatory condition of skin (9 sources) Pruritus, unspecified; Translations: [Pruritus] 06-20-2024 Episodic Other injuries and conditions due to external causes (1 source) History of fall; Translations: [History of falling] Episodic Other liver diseases (2 sources) Liver disease, unspecified; Translations: [Liver disease, unspecified] Onset: 5 Chronic Other liver diseases (2 sources) Liver mass; Translations: [Hepatomegaly, not elsewhere classified] 06-24-2024 Episodic Other liver diseases (3 sources) Hepatomegaly, not elsewhere classified; Translations: [Other specified disorders of liver] 06-24-2024 Episodic Other liver diseases (2 sources) Unspecified jaundice; Translations: [Unspecified jaundice] Onset: 5 Episodic Other nutritional; endocrine; and metabolic disorders (2 sources) Other disorders of bilirubin metabolism; Translations: [Other disorders of bilirubin metabolism] Onset: 5 Chronic Other nutritional; endocrine; and metabolic disorders (1 source) Overweight; Translations: [Overweight] Episodic Other screening for suspected conditions (not mental disorders or infectious disease) (6 sources) Blood chemistry abnormal; Translations: [Other specified abnormal findings of blood chemistry] Onset: 5 07-21-2024 Episodic Pancreatic disorders (not diabetes) (2 sources) Acute pancreatitis without necrosis or infection, unspecified; Translations: [Acute pancreatitis without necrosis or infection, unspecified] Onset: 5 Episodic Residual codes; unclassified (1 source) Procedure not done; Translations: [Procedure and treatment not carried out because of patient's decision for unspecified reasons] Episodic Residual codes; unclassified (5 sources) Mammogram declined; Translations: [Procedure and treatment not carried out because of patient's decision for unspecified reasons] 04-03-2024 Episodic Residual codes; unclassified (3 sources) Procedure and treatment not carried out because of patient's decision for unspecified reasons; Translations: [Surgical or other procedure not carried out because of patient's decision] 04-03-2024 Episodic Results Test Name Value Interpretation Reference Range Facility [facility] 08-05-2024 CNPN Telephone (NCCAP) JENNA KUMAR ([id number]) 1945 F Date Time Provider Department 08/05/24 REUBEN ANGELA [facility] During your visit today, we recorded the following information about you: Oskar Nelson 08/05/2024 9:16 AM Signed Reuben Angela MD P [facility] Clerical Pool 1. MRI Spine 2. MRI Liver 3. Referral to ESTELLE @ [place] for rectal mass 4. Following MRI's will refer to [facility] (Mic or Darrell) 5. Virtual visit following MRI. 08/05/24 Spoke to patient, faxed MRI orders to [facility]. Referral to [place] scheduled 08/08 at 2pm. Will scheduled Virtual Follow up will be scheduled after MRIS Oskar Nelson 08/06/2024 8:37 AM Signed Spoke to Mohsen at [facility], they are going to call patient today to scheduled MRI Oskar Nelson 08/08/2024 10:10 AM Signed Spoke to Jessica at scheduling, she is trying to get information about her clips in her liver before scheduling. Oskar Nelson 08/09/2024 2:01 PM Signed Jessica called back, MRI's are scheduled 08/12 at [facility]. Appt at [place] for mass did not work, gave patient phone number to call and schedule. Provider phone follow up scheduled as patient does not have MyChart Oskar Nelson 08/09/2024 2:[address] Garcia, could you please do an order for Jenna to have her creatine lab done? [facility] needs it from her before her MRI's. 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 - hydrocortisone 2.5 % cream APPLY TOPICALLY TWICE DAILY NEEDED FOR SKIN IRRITATION FOR 30 DAYS - losartan (COZAAR) 25 mg tablet Take 25 mg by mouth. - metoprolol tartrate, short acting, (LOPRESSOR) 25 mg tablet Take 12.5 mg by mouth. - pantoprazole DR (PROTONIX) 40 mg tablet Take 40 mg by mouth. Problem List As Of Date 08/05/2024 Noted Resolved 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 (H*08/04/2024 Encounter Status:Closed by OSKAR NELSON on 08/05/24 Normal [facility] 36on 07-30-2024 36 Returned a phone bibi l to patient who was calling to confirm her August 13 appointment. Time confirmed. Normal [facility] Telephoneon 07-30-2024 Telephone [id number] Alissa Kumar 1945 F Date Provider Department Center 07/30/2024 [id number] SATISH No family history on file Normal [facility] GLUCOSE, BLOOD (POC)on 07-23 Glucose [Mass/Vol] 100 mg/dL Abnormal 74 - 99 mg/dL Comment on above: Location:[facility], [address] [place] [address] , [place], [place], [address] The Accu-Chek Inform II glucose meter has not been approved for testing on patients receiving intensive medical intervention or therapy and results from this point of care glucose test should not be used for patient management decisions in these cases. Inaccurate results may also occur from other interfering factors, such as N-acetylcysteine (blood concentrations of greater than 5mg/dL), galactose, extremes of hematocrit (<10 or >65), or high doses of ascorbic acid (vitamin C) greater than 3mg/dL. Consider alternate testing mechanisms (e.g. core lab, blood gas instrument) in the above situations. Interpretation and review of laboratory results Abnormal [facility] NM PET/CT SKULL-THIGH INITon 07-23-2024 NM PET/CT SKULL-THIGH INIT * * *Final Report* * * DATE OF EXAM: Jul 23 2024 1:22PM NRN [id number] - NM PET/CT SKULL-THIGH INIT / PROCEDURE REASON: multiple diagnoses * * * * Physician Interpretation * * * * RESULT: EXAMINATION: BODY FDG PET-CT CLINICAL HISTORY: History of cholangiocarcinoma EXAM CATEGORY: Initial treatment strategy. TECHNIQUE: Radiopharmaceutical was administered intravenously followed by PET imaging from the eyes to thighs. Free breathing, low dose CT of the same body region was acquired without IV contrast for attenuation correction and anatomic localization. Unenhanced imaging is limited for the evaluation of some pathology and the acquired CT was not designed to produce diagnostic CT scan quality. Physiologic/non-pathologic uptake in some body regions could confound or obscure some pathology. * CT Dose-Length Product (DLP): 203 mGy*cm * CT Dose Reduction Employed: Yes * Blood glucose: 100 mg/dL * Injection site: Right Forearm-Antecubital * Injected activity: 6.6 mCi * Uptake Time: 46 minutes * Radiopharmaceutical: Q20-Mltphcompjzaslxoci (FDG) COMPARISON: No previous FDG PET/CT available CORRELATION: CT from outside hospital dated 07/01/2024 RESULT: REFERENCES: FDG uptake is used as a surrogate marker for glucose metabolism. All reported standardized uptake values represent maximum SUV (SUVmax) per body weight, unless otherwise specified. SUV reference values, as follows: * Blood Pool (Descending Aorta): SUVmax 1.9 * Background Liver: SUVmax 2.5; SUVmean 2.3 Localizer Images: Unremarkable. HEAD AND NECK: Head: No radiotracer avid lesion or mass effect in the imaged intracranial compartment. Aerodigestive Tract: No radiotracer avid lesion. Lymph Nodes: No radiotracer avid lymphadenopathy. Neck Soft Tissues: No radiotracer avid thyroid nodule. CHEST: Lungs and Pleura: No radiotracer avid mass, nodule, or consolidation. Trace LEFT pleural effusion. Lymph Nodes: No radiotracer avid lymphadenopathy. Mediastinum: No radiotracer avid mass. Cardiovascular: Blood pool activity. No pericardial effusion. Chest Wall: No radiotracer avid soft tissue lesion. ABDOMEN AND PELVIS: Hepatobiliary: Circumferential abnormal increased metabolic activity in the RIGHT hepatic lobe lesion with SUV max of 11.3 with anterior biliary stent in place. Heterogenous radiotracer uptake in the remaining liver tissue, correlate with liver MRI for better evaluation of liver lesions. Spleen: No radiotracer avid lesion. No splenomegaly. Pancreas: No radiotracer avid lesion. Adrenals: No radiotracer avid nodule. Urinary Tract: Physiologic radiotracer excretion in the renal collecting systems and urinary bladder. No hydronephrosis. GI Tract: Postsurgical changes. There is interval development of circumferential multifocal metabolically active rectal wall thickening SUV max of 12.4, correlate with physical exam/MRI of the abdomen and pelvis. No bowel dilation. Peritoneum: No radiotracer avid lesion. No ascites. Lymph Nodes: No radiotracer avid lymphadenopathy. Vasculature: Blood pool activity. MUSCULOSKELETAL: Bones: Mildly metabolically active osseous lesions, vertebral body of T7 with SUV max 3.8, LEFT lateral vertebral body of L4 with SUV max of 3.5, and posterior RIGHT iliac bone SUV max of 3.3. Degenerative changes throughout the thoracolumbar vertebrae. Soft Tissues: No radiotracer avid lesion. IMPRESSION PRIMARY DISEASE SITE: * Circumferential abnormal increased metabolic activity in the RIGHT hepatic lobe lesion with biliary stent in place. Heterogenous radiotracer uptake in the remaining liver tissue, correlate with MRI for better evaluation of liver lesions. * There is interval development of circumferential multifocal metabolically active rectal wall thickening, correlate with physical exam/MRI of the abdomen and pelvis. MARIA ELENA DISEASE: * No metabolically active regional lymphadenopathy. ADDITIONAL FINDINGS: * Multiple mildly metabolically active osseous lesions of indeterminate significance. * Trace LEFT pleural effusion. Transcribe Date/Time: Jul 24 2024 8:08A Dictated by: CELIA HILL MD This examination was interpreted and the report reviewed and electronically signed by: CELIA HILL MD on Jul 24 2024 8:54AM EST Thank you for allowing us to participate in the care of your patient. Should there be any questions regarding this interpretation, please call [phone]. If you are unable to reach us at the number above, please feel free to contact [facility] at [phone]. [id number] Normal [facility] CNPNon 07-22-2024 CNPN Telephone (HEMTSA) JENNA KUMAR ([id number]) 1945 F Date Time Provider Department 07/22/24 CANDE ESPITIA During your visit today, we recorded the following information about you: Cande Espitia RN 07/22/2024 11:[address] Garcia said in his plan on 07/19 to draw labs for [facility] the same day as scan. The patient is coming in tomorrow 07/23 for PET if you would like [facility] to be draw at time of scan please place order... Thanks!! 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 - hydrocortisone 2.5 % cream APPLY TOPICALLY TWICE DAILY NEEDED FOR SKIN IRRITATION FOR 30 DAYS - losartan (COZAAR) 25 mg tablet Take 25 mg by mouth. - metoprolol tartrate, short acting, (LOPRESSOR) 25 mg tablet Take 12.5 mg by mouth. - pantoprazole DR (PROTONIX) 40 mg tablet Take 40 mg by mouth. Problem List As Of Date: 07/22/2024 (None) Encounter Status:Closed by CANDE ESPITIA on 07/29/24 Normal [facility] Comprehensive metabolic 2000 panelon 07-20-2024 Albumin [Mass/Vol] 3.1 g/dL Low 3.9 - 4.9 g/dL ALP [Catalytic activity/Vol] 1130 U/L High 34 - 123 U/L ALT [Catalytic activity/Vol] 56 U/L High 7 - 38 U/L Anion gap [Moles/Vol] 12 mmol/L 8 - 15 mmol/L AST [Catalytic activity/Vol] 125 U/L High 13 - 35 U/L Bilirubin [Mass/Vol] 4.2 mg/dL High 0.2 - 1.3 mg/dL Calcium [Mass/Vol] 8.7 mg/dL 8.5 - 10. 2 mg/dL Chloride [Moles/Vol] 101 mmol/L 98 - 107 mmol/L CO2 [Moles/Vol] 24 mmol/L 22 - 30 mmol/L Creatinine [Mass/Vol] 0.73 mg/dL 0.58 - 0.96 mg/dL GFR/1.73 sq M.predicted among non-blacks MDRD (S/P/Bld) [Vol rate/Area] 83 mL/min/{1.73_m2} - PINF Comment on above: Estimated Glomerular Filtration Rate (eGFR) is calculated using the 2020 CKD-EPI creatinine equation. This equation utilizes serum creatinine, sex, and age as parameters. The creatinine assay has traceable calibration to isotope dilution-mass spectrometry. Refer to KDIGO guidelines for clinical interpretation. In patients with unstable renal function, e.g. those with acute kidney injury, the eGFR may not accurately reflect actual GFR. Glucose [Mass/Vol] 109 mg/dL High 74 - 99 mg/dL Comment on above: The [place] Di[employer] Association (ADA) provides guidance for cutoff values for fasting glucose and random glucose. The ADA defines fasting as no caloric intake for at least 8 hours. Fasting plasma glucose results between 100 to 125 mg/dL indicate increased risk for diabetes (prediabetes). Fasting plasma glucose results greater than or equal to 126 mg/dL meet the criteria for diagnosis of diabetes. In the absence of unequivocal hyperglycemia, results should be confirmed by repeat testing. In a patient with classic symptoms of hyperglycemia or hyperglycemic crisis, random plasma glucose results greater than or equal to 200 mg/dL meet the criteria for diagnosis of diabetes. Reference: Standards of Medical Care in Diabetes 2016, [place] [employer]. Diabetes Care. 2016.39(Suppl 1). Interpretation and review of laboratory results Abnormal Potassium [Moles/Vol] 3.6 mmol/L Low 3.7 - 5.1 mmol/L Protein [Mass/Vol] 6.1 g/dL Low 6.3 - 8.0 g/dL Sodium [Moles/Vol] 137 mmol/L 136 - 144 mmol/L Urea nitrogen [Mass/Vol] 14 mg/dL 7 - 21 mg/dL [facility] CBC W Auto Differential pane l (Bld)on 07-19-2024 Basophils (Bld) [#/Vol] 0.15 10*3/uL High [facility] Basophils/100 WBC (Bld) 0.9 % Differential cell count method Nom (Bld) Auto Eosinophils (Bld) [#/Vol] 0.44 10*3/uL [facility] Eosinophils/100 WBC (Bld) 2.6 % Erythrocyte distribution width (RBC) [Ratio] 19.1 % High 11.5 - 15.0 % Hematocrit (Bld) [Volume fraction] 34.4 % Low 36.0 - 46.0 % Hemoglobin (Bld) [Mass/Vol] 10.8 g/dL Low 11.5 - 15.5 g/dL Immature granulocytes (Bld) [#/Vol] 0.11 10*3/uL High [facility] Immature granulocytes/100 WBC (Bld) 0.7 % Interpretation and review of laboratory results Abnormal Lymphocytes (Bld) [#/Vol] 4.76 10*3/uL High Lymphocytes/100 WBC (Bld) 28.2 % MCH (RBC) [Entitic mass] 29.8 pg 26.0 - 34.0 pg MCHC (RBC) [Mass/Vol] 31.4 g/dL 30.5 - 36.0 g/dL MCV (RBC) [Entitic vol] 95 fL 80.0 - 100.0 fL Monocytes (Bld) [#/Vol] 1.32 10*3/uL High NINF Monocytes/100 WBC (Bld) 7.8 % Neutrophils (Bld) [#/Vol] 10.08 10*3/uL High Neutrophils/100 WBC (Bld) 59.8 % Nucleated RBC (Bld) [#/Vol] NINF Nucleated RBC/100 WBC (Bld) [Ratio] 0 % /100 WBC Platelet mean volume (Bld) [Entitic vol] 12.6 fL 9.0 - 12.7 fL Platelets (Bld) [#/Vol] 368 10*3/uL RBC (Bld) [#/Vol] 3.62 10*6/uL Low 3.90 - 5.20 m/uL WBC (Bld) [#/Vol] 16.86 10*3/uL High [facility] Basophils (Bld) [#/Vol] 0.15 10*3/uL High <0.11 [facility] Comment on above: Order Comment: Speci men Type: BLOOD SPECIMEN [facility]ing Facility: [facility] Address: [address] [place] [address] Performed By: #### 5 7021-8 #### [facility] CLIA [id number] [address] [place] [address] [place] Basophils/100 WBC (Bld) 0.9 % Normal [facility] Comment on above: Order Comment: Speci men Type: BLOOD SPECIMEN Ordering Facility: [facility] Address: [address] [place] [address] Performed By: #### 5 7021-8 #### [facility] CLIA [id number] [address] [place] [address] [place] Differential cell count method Nom (Bld) Auto Normal [facility] Comment on above: Order Comment: Speci men Type: BLOOD SPECIMEN [facility]ing Facility: [facility] Address: [address] [place] [address] Performed By: #### 5 7021-8 #### [facility] CLIA [id number] [address] [place] [address] [place] Eosinophils (Bld) [#/Vol] 0.44 10*3/uL Normal <0.46 [facility] Comment on above: Order Comment: Speci men Type: BLOOD SPECIMEN [facility]ing Facility: [facility] Address: [address] [place] [address] Performed By: #### 5 7021-8 #### [facility] CLIA [id number] [address] [place] [address] [place] Eosinophils/100 WBC (Bld) 2.6 % Normal [facility] Comment on above: Order Comment: Speci men Type: BLOOD SPECIMEN Ordering Facility: [facility] Address: [address] [place] [address] Performed By: #### 5 7021-8 #### [facility] CLIA [id number] [address] [place] [address] [place] Erythrocyte distribution width (RBC) [Ratio] 19.1 % High 11.5-15.0 [facility] Comment on above: Order Comment: Speci men Type: BLOOD SPECIMEN [facility]ing Facility: [facility] Address: [address] [place] [address] Performed By: #### 5 7021-8 #### [facility] CLIA [id number] [address] [place] [address] [place] Hematocrit (Bld) [Volume fraction] 34.4 % Low 36.0-46.0 [facility] Comment on above: Order Comment: Speci men Type: BLOOD SPECIMEN [facility]ing Facility: [facility] Address: [address] [place] [address] Performed By: #### 5 7021-8 #### [facility] CLIA [id number] [address] [place] [address] [place] Hemoglobin (Bld) [Mass/Vol] 10.8 g/dL Low 11.5-15.5 [facility] Comment on above: Order Comment: Speci men Type: BLOOD SPECIMEN Ordering Facility: [facility] Address: [address] [place] [address] Performed By: #### 5 7021-8 #### [facility] CLIA [id number] [address] [place] [address] [place] Immature granulocytes (Bld) [#/Vol] 0.11 10*3/uL High <0.10 [facility] Comment on above: Order Comment: Speci men Type: BLOOD SPECIMEN Ordering Facility: [facility] Address: [address] [place] [address] Performed By: #### 5 7021-8 #### [facility] CLIA [id number] [address] [place] [address] [place] Immature granulocytes/100 WBC (Bld) 0.7 % Normal [facility] Comment on above: Order Comment: Speci men Type: BLOOD SPECIMEN Ordering Facility: [facility] Address: [address] [place] [address] Performed By: #### 5 7021-8 #### [facility] CLIA [id number] [address] [place] [address] [place] Lymphocytes (Bld) [#/Vol] 4.76 10*3/uL High 1.00-4.00 [facility] Comment on above: Order Comment: Speci men Type: BLOOD SPECIMEN Ordering Facility: [facility] Address: [address] [place] [address] Performed By: #### 5 7021-8 #### [facility] CLIA [id number] [address] [place] [address] [place] Lymphocytes/100 WBC (Bld) 28.2 % Normal [facility] Comment on above: Order Comment: Speci men Type: BLOOD SPECIMEN Ordering Facility: [facility] Address: [address] [place] [address] Performed By: #### 5 7021-8 #### [facility] CLIA [id number] [address] [place] [address] [place] MCH (RBC) [Entitic mass] 29.8 pg Normal 26.0-34.0 [facility] Comment on above: Order Comment: Speci men Type: BLOOD SPECIMEN Ordering Facility: [facility] Address: [address] [place] [address] Performed By: #### 5 7021-8 #### [facility] CLIA [id number] [address] [place] [address] [place] MCHC (RBC) [Mass/Vol] 31.4 g/dL Normal 30.5-36.0 [facility] Comment on above: Order Comment: Speci men Type: BLOOD SPECIMEN Ordering Facility: [facility] Address: [address] [place] [address] Performed By: #### 5 7021-8 #### [facility] CLIA [id number] [address] [place] [address] [place] MCV (RBC) [Entitic vol] 95.0 fL Normal 80.0-100.0 [facility] Comment on above: Order Comment: Speci men Type: BLOOD SPECIMEN Ordering Facility: [facility] Address: [address] [place] [address] Performed By: #### 5 7021-8 #### [facility] CLIA [id number] [address] [place] [address] [place] Monocytes (Bld) [#/Vol] 1.32 10*3/uL High <0.87 [facility] Comment on above: Order Comment: Speci men Type: BLOOD SPECIMEN Ordering Facility: [facility] Address: [address] [place] [address] Performed By: #### 5 7021-8 #### [facility] CLIA [id number] [address] [place] [address] [place] Monocytes/100 WBC (Bld) 7.8 % Normal [facility] Comment on above: Order Comment: Speci men Type: BLOOD SPECIMEN Ordering Facility: [facility] Address: [address] [place] [address] Performed By: #### 5 7021-8 #### [facility] CLIA [id number] [address] [place] [address] [place] Neutrophils (Bld) [#/Vol] 10.08 10*3/uL High 1.45-7.50 [facility] Comment on above: Order Comment: Speci men Type: BLOOD SPECIMEN Ordering Facility: [facility] Address: [address] [place] [address] Performed By: #### 5 7021-8 #### [facility] CLIA [id number] [address] [place] [address] [place] Neutrophils/100 WBC (Bld) 59.8 % Normal [facility] Comment on above: Order Comment: Speci men Type: BLOOD SPECIMEN Ordering Facility: [facility] Address: [address] [place] [address] Performed By: #### 5 7021-8 #### [facility] CLIA [id number] [address] [place] [address] [place] Nucleated RBC (Bld) [#/Vol] 10*3/uL Normal <0.01 [facility] Comment on above: Order Comment: Speci men Type: BLOOD SPECIMEN Ordering Facility: [facility] Address: [address] [place] [address] Performed By: #### 5 7021-8 #### [facility] CLIA [id number] [address] [place] [address] [place] Nucleated RBC/100 WBC (Bld) [Ratio] 0.0 /100 WBC Normal [facility] Comment on above: Order Comment: Speci men Type: BLOOD SPECIMEN Ordering Facility: [facility] Address: [address] [place] [address] Performed By: #### 5 7021-8 #### [facility] CLIA [id number] [address] [place] [address] [place] Platelet mean volume (Bld) [Entitic vol] 12.6 fL Normal 9.0-12.7 [facility] Comment on above: Order Comment: Speci men Type: BLOOD SPECIMEN Ordering Facility: [facility] Address: [address] [place] [address] Performed By: #### 5 7021-8 #### [facility] CLIA [id number] [address] [place] [address] [place] Platelets (Bld) [#/Vol] 368 10*3/uL Normal 150-400 [facility] Comment on above: Order Comment: Speci men Type: BLOOD SPECIMEN Ordering Facility: [facility] Address: [address] [place] [address] Performed By: #### 5 7021-8 #### [facility] CLIA [id number] [address] [place] [address] [place] RBC (Bld) [#/Vol] 3.62 10*6/uL Low 3.90-5.20 [facility] Comment on above: Order Comment: Speci men Type: BLOOD SPECIMEN Ordering Facility: [facility] Address: [address] [place] [address] Performed By: #### 5 7021-8 #### [facility] CLIA [id number] [address] [place] [address] [place] WBC (Bld) [#/Vol] 16.86 10*3/uL High 3.70-11.00 [facility] Comment on above: Order Comment: Speci men Type: BLOOD SPECIMEN Ordering Facility: [facility] Address: [address] [place] [address] Performed By: #### 5 7021-8 #### [facility] CLIA [id number] [address] [place] [address] [place] CEA SerPl-mCncon 07-19-2024 Carcinoembryonic Ag [Mass/Vol] 2.9 ng/mL Normal <=2.9 [facility] Comment on above: Order Comment: Speci men Type: BLOOD SPECIMEN Ordering Facility: [facility] Address: [address] [place] [address] Result Comment: Carc inoembryonic antigen test is used as an aid in monitoring response to treatment or recurrence in patients with established colorectal, breast, lung, prostatic, pancreatic, and ovarian carcinomas. Clinical correlation is required. The Carcinoembryonic antigen test was performed using the Brett [employer] DXI paramagnetic particle chemiluminescent immunoassay method. Results obtained with different assay methods or kits cannot be used interchangeably. Performed By: #### 2 4108-3, 2039-6 #### [facility] CLIA [id number] [address] [place] [address] [place] CNOVSPon 07-19-2024 CNOVSP Visit (SP) Office ([facility]) JENNA KUMAR ([id number]) 1945 F Date Time Provider Department 07/19/24 4:00 PM REUBEN ANGELA During your visit today, we recorded the following information about you: Temperature Pulse Respiration Blood pressure 97.7 degrees 84/minute 18/minute 146/81 Weight 67.3 kg Reuben Angela MD 07/21/2024 3:47 PM Signed NAME: Jenna Kumar NO.: [id number] DATE OF SERVICE: July 19, 2024 ([place]) Referring Provider: Mayito Costello DO Consultation requested by Dr. Costello for an opinion regarding Ms. Jenna Kumar, and my final recommendations will be communicated back to the requesting physician by way of shared medical record or letter via US mail. Additional Clinicians involved in Jenna Kumar's care: Bradley Díaz DIAGNOSIS: Metastatic adenocarcinoma of liver. ASSESSMENT: 79 year old woman with metastatic adenocarcinoma of liver of unclear etiology. She had a rectal mass that was not malignant on biopsy but is still having some pain and bleeding from this. She presented with obstructive jaundice. And workup determined + adenocarcinoma of liver on EUS guided biopsy of liver mass. Hepatic duct brushing was suspicious for malignancy but non-diagnostic. 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 Will obtain PET CT to help direct additional workup. Aside from persisting jaundice, she has a very well preserved functional status and appears younger than stated age. PLAN: Labs drawn today Will present case at Tumor Board on 07/25/2024 PET/CT prior to [facility] Labs [facility] in 2 weeks - HPI: CASE HISTORY: Reverse Chronological Order 07/11/2024 - Total Bilirubin: 5.5, Alk Phos: 753, AST: 88, ALT: 61, Total Protein: 4.8, Albumin: 2.4 07/08/2023 - Colonoscopy: A. Colon, rectal mass, biopsy: Tubular adenoma with focal high grade dysplasia B. Colon, rectal mass #2, biopsy: Tubular adenoma 07/04/2024 - CEA, CA 19-9, AND AFP: Normal 07/02/2024 - EGD: Small duodenal ulcer 07/01/2024 - CT Head/Brain AND A/P: Head/Brain: No acute intracranial process is identified. A/P: Interval placement of internal biliary stents which extend into the left hepatic lobe with associated decompression of the previously dilated intrahepatic bile ducts within the left hepatic lobe. Persistently dilated intrahepatic bile ducts within the right hepatic lobe. Ill-defined heterogenous mass within hepatic segments 4A and 4B measuring 5.2 x 4.8 cm is again noted. Heterogeneously enhancing rectal mass is again identified which is not well assessed on this examination. Recommend correlation with digital rectal examination. Stable bilateral renal cysts. 07/01/2024 - Total Bilirubin: 10.9, Direct Bilirubin: 9.2, Alk Phos: 821, AST: 204, ALT: 269, Total Protein: 4.6, Albumin: 1.7 07/01/2024-07/11/2024 - ER at [facility] after a fall due to lightheadedness, dizziness, and hypotension - transferred and admitted at [facility] for GI bleed 06/28/2024 - ERCP AND Sigmoidoscopy: Dr. Bradley Díaz at [facility] High grade intrahepatic duct mass/stricture, large left hepatic mass, common hepatic duct mass Sphincterotomy, 2 intrahepatic duct stents placed Cytology: A. Hepatic duct, brushing: Suspicious for malignancy B. Lymph node, paraduodenal, EUS-guided fine needle aspiration: Atypical cells present C. Liver, EUS-guided fine needle aspiration: Adenocarcinoma Addendum: Immunohistochemical stains were performed with adequate controls. The tumor cells in part C (liver) are strongly positive for CK7. The tumor cells are negative for CK20 and CDX-2. The immunohistochemical profile does not support a metastatic lesion from the colon. The positive CK7 staining, while not specific, could be compatible with cholangiocarcinoma in the correct clinical context. Clinical correlation is recommended. Histology - Tissue Exam: A. Common bile duct, biopsy: Adenocarcinoma B. Rectal mass, biopsy: Superficial fragments of tubulovillous adenoma No invasive neoplasm or high-grade dysplasia identified Comment: The specimen in part B may not be entirely claims customer service representative of a larger mass. 06/21/2024 - CT A/P: A 4.6 x 3.4 cm il-defined hypoenhancing region in segment 4A and B and 8, suspicious for primary hepatic neoplasm such as cholangiocarcinoma or metastasis. There appears capsule retraction of the segment 8 and 4A. Liver protocol MRI with contrast, including diffusion weighted images and MRCP is recommended for better evaluation. Intraluminal polypoid lower rectal mass from 3-11:00 Trendelenburg position, highly suspicious for rectal adenocarcinoma. Rectal protocol pelvic MRI with con (more content not included)... Normal [facility] Cancer Ag19-9 SerPl-aCncon 0 07-19-2024 Cancer Ag 19-9 Qn <2.0 Normal <36.0 [facility] Comment on above: Order Comment: Nael mike Type: BLOOD SPECIMEN [facility] Facility: [facility] Address: [address] [place] [address] Result Comment: [facility] er antigen 19-9 test is used as an aid in monitoring response to treatment or recurrence in patients with established pancreatic, hepatobiliary, or gastrointestinal malignancies. Clinical correlation is required. The CA 19-9 Antigen test was performed using the Brett Ast[employer]hel DXI paramagnetic particle chemiluminescent immunoassay method. Results obtained with different assay methods or kits cannot be used interchangeably. Performed By: #### 2 4108-3, 2038-10 #### [facility] CLIA [id number] [address] [place] [address] [place] Comprehensive metabolic 2000 panelon 07-19-2024 Albumin [Mass/Vol] 3.1 g/dL Low 3.9-4.9 [facility] Comment on above: Order Comment: Nael mike Type: BLOOD SPECIMEN [facility] Facility: [facility] Address: [address] [place] [address] Performed By: #### 2 4323-8 #### [facility] CLIA [id number] [address] [place] [address] [place] ALP [Catalytic activity/Vol] 1130 U/L High 34-123 [facility] Comment on above: Order Comment: Nael mike Type: BLOOD SPECIMEN [facility]ing Facility: [facility] Address: [address] [place] [address] Performed By: #### 2 4323-8 #### [facility] CLIA [id number] [address] [place] [address] [place] ALT [Catalytic activity/Vol] 56 U/L High 7-38 [facility] Comment on above: Order Comment: Speci men Type: BLOOD SPECIMEN Ordering Facility: [facility] Address: [address] [place] [address] Performed By: #### 2 4323-8 #### [facility] CLIA [id number] [address] [place], [place] [address] [place] Anion gap [Moles/Vol] 12 mmol/L Normal 8-15 [facility] Comment on above: Order Comment: Speci men Type: BLOOD SPECIMEN [facility]ing Facility: [facility] Address: [address] [place] [address] Performed By: #### 2 4323-8 #### [facility] CLIA [id number] [address] [place] [address] [place] AST [Catalytic activity/Vol] 125 U/L High 13-35 [facility] Comment on above: Order Comment: Speci men Type: BLOOD SPECIMEN [facility]ing Facility: [facility] Address: [address] [place] [address] Performed By: #### 2 4323-8 #### [facility] CLIA [id number] [address] [place], [place] [address] [place] Bilirubin [Mass/Vol] 4.2 mg/dL High 0.2-1.3 [facility] Comment on above: Order Comment: Speci men Type: BLOOD SPECIMEN [facility]ing Facility: [facility] Address: [address] [place], [place] [address] Performed By: #### 2 4323-8 #### [facility] CLIA [id number] [address] [place], [place] [address] [place] Calcium [Mass/Vol] 8.7 mg/dL Normal 8.5-10.2 [facility] Comment on above: Order Comment: Speci men Type: BLOOD SPECIMEN [facility] Facility: [facility] Address: [address] [place] [address] Performed By: #### 2 4323-8 #### [facility] CLIA [id number] [address] [place] [address] [place] Chloride [Moles/Vol] 101 mmol/L Normal 98-107 [facility] Comment on above: Order Comment: Speci men Type: BLOOD SPECIMEN [facility] Facility: [facility] Address: [address] [place] [address] Performed By: #### 2 4323-8 #### [facility] CLIA [id number] [address] [place] [address] [place] CO2 [Moles/Vol] 24 mmol/L Normal 22-30 [facility] Comment on above: Order Comment: Speci men Type: BLOOD SPECIMEN [facility]ing Facility: [facility] Address: [address] [place] [address] Performed By: #### 2 4323-8 #### [facility] CLIA [id number] [address] [place] [address] [place] Creatinine [Mass/Vol] 0.73 mg/dL Normal 0.58-0.96 [facility] Comment on above: Order Comment: Speci men Type: BLOOD SPECIMEN [facility] Facility: [facility] Address: [address] [place] [address] Performed By: #### 2 4323-8 #### [facility] CLIA [id number] [address] [place] [address] [place] Creatinine and Glomerular filtration rate.predicted panel (S/P/Bld) 83 mL/min/1.73m??? Normal >=60 [facility] Comment on above: Order Comment: Speci men Type: BLOOD SPECIMEN [facility]ing Facility: [facility] Address: [address] [place] [address] Result Comment: Henrietta mated Glomerular Filtration Rate (eGFR) is calculated using the 2020 CKD-EPI creatinine equation. This equation utilizes serum creatinine, sex, and age as parameters. The creatinine assay has traceable calibration to isotope dilution-mass spectrometry. Refer to KDIGO guidelines for clinical interpretation. In patients with unstable renal function, e.g. those with acute kidney injury, the eGFR may not accurately reflect actual GFR. Performed By: #### 2 4323-8 #### [facility] CLIA [id number] [address] [place] [address] [place] Glucose [Mass/Vol] 109 mg/dL High 74-99 [facility] Comment on above: Order Comment: Nael mike Type: BLOOD SPECIMEN [facility] Facility: [facility] Address: [address] [place] [address] Result Comment: The [place] Diabetes Association (ADA) provides guidance for cutoff values for fasting glucose and random glucose. The ADA defines fasting as no caloric intake for at least 8 hours. Fasting plasma glucose results between 100 to 125 mg/dL indicate increased risk for diabetes (prediabetes). Fasting plasma glucose results greater than or equal to 126 mg/dL meet the criteria for diagnosis of diabetes. In the absence of unequivocal hyperglycemia, results should be confirmed by repeat testing. In a patient with classic symptoms of hyperglycemia or hyperglycemic crisis, random plasma glucose results greater than or equal to 200 mg/dL meet the criteria for diagnosis of diabetes. Reference: Standards of Medical Care in Diabetes 2016, [place] Diabetes Association. Diabetes Care. 2016.39(Suppl 1). Performed By: #### 2 4323-8 #### [facility] CLIA [id number] [address] [place], [place] [address] [place] Potassium [Moles/Vol] 3.6 mmol/L Low 3.7-5.1 [facility] Comment on above: Order Comment: Nael mike Type: BLOOD SPECIMEN [facility]ing Facility: [facility] Address: [address] [id number] Performed By: #### 2 4323-8 #### [facility] CLIA [id number] [address] [place] [address] [place] Protein [Mass/Vol] 6.1 g/dL Low 6.3-8.0 [facility] Comment on above: Order Comment: Speci men Type: BLOOD SPECIMEN [facility]ing Facility: [facility] Address: [address] [place] [address] Performed By: #### 2 4323-8 #### [facility] CLIA [id number] [address] [place] [address] [place] Sodium [Moles/Vol] 137 mmol/L Normal 136-144 [facility] Comment on above: Order Comment: Speci men Type: BLOOD SPECIMEN [facility] Facility: [facility] Address: [address] [place] [address] Performed By: #### 2 4323-8 #### [facility] CLIA [id number] [address] [place] [address] [place] Urea nitrogen [Mass/Vol] 14 mg/dL Normal 7-21 [facility] Comment on above: Order Comment: Speci men Type: BLOOD SPECIMEN Ordering Facility: [facility] Address: [address] [place] [address] Performed By: #### 2 [id number] #### [facility] CLIA [id number] [address] [place] [address] [place] Orders Onlyon 07-19-2024 Orders Only [id number] Alissa Kumar 1945 F Date Provider Department Center 07/19/2024 [id number], HISTORICAL DCC ONC DCC No family history on file Normal [facility] Orders Only [id number] Alissa Kumar M 1945 F Date Provider Department Center 07/19/2024 Pipe7-[facility] SATISH No family history on file Normal [facility] Documentationon 07-18-2024 Documentation [id number] Alissa Kmuar M 1945 F Date Provider Department Center 07/18/[id number]-ROMIBENITA PATRICK [facility] No family history on file Normal [facility] 36on 07-16-2024 36 Normal [facility] CBCon 07-11-2024 Erythrocyte distribution width (RBC) [Ratio] 22.5 % High 11.5-15.0 [facility] Comment on above: Performed By: #### L [id number] ####[facility] ([facility])[address] [place] [address] ERYTHROCYTE MEAN CORPUSCULAR HEMOGLOBIN CONCENTRATION (G/DL) BY AUTOMATED 32.2 g/dL Normal 32.0-35.0 [facility] Comment on above: Performed By: #### L [id number] ####[facility] ([facility] [place] [address] Hematocrit (Bld) [Volume fraction] 29.2 % Low 36.0-48.0 [facility] Comment on above: Performed By: #### L [id number] ####[facility] ([facility] [place] [address] Hemoglobin (Bld) [Mass/Vol] 9.4 g/dL Low 12.0-15.0 [facility] Comment on above: Performed By: #### L [id number] ####[facility] (BETigermed)[address] [place] [address] IMMATURE PLATELET FRACTION % 4.9 % Normal 0.8-6.3 [facility] Comment on above: Performed By: #### L [id number] ####[facility] ([facility])[address] [place] [address] MCH (RBC) [Entitic mass] 29.5 pg Normal 27.0-33.0 [facility] Comment on above: Performed By: #### L [id number] ####[facility] ([facility])[address] [place] [address] MCV (RBC) [Entitic vol] 91.5 fL Normal 82.0-98.0 [facility] Comment on above: Performed By: #### L [id number] ####[facility] ([facility])[address] [place] [address] PLATELETS (10*3/UL) IN BLOOD AUTOMATED COUNT 460 10*3/uL High 150-400 [facility] Comment on above: Performed By: #### L [id number] ####[facility] ([facility] [place] [address] RBC (Bld) [#/Vol] 3.19 10*6/uL Low 3.80-5.00 [facility] Comment on above: Performed By: #### L [id number] ####[facility] ([facility])[address] [place] [address] WBC (Bld) [#/Vol] 20.05 10*3/uL High 4.00-10.60 [facility] Comment on above: Performed By: #### L [id number] ####[facility] ([facility])[address] [place] [address] COMPREHENSIVE METABOLIC PANE Rigoberto 07-11-2024 Albumin [Mass/Vol] 2.4 g/dL Low 3.5-5.7 [facility] Comment on above: Performed By: #### L [id number] ####[facility] ([facility] [place] [address] ALP [Catalytic activity/Vol] 753 U/L High 34-104 [facility] Comment on above: Performed By: #### L [id number] ####[facility] ([facility] [place] [address] ALT [Catalytic activity/Vol] 61 U/L High 7-52 [facility] Comment on above: Performed By: #### L [id number] ####[facility] ([facility])[address] [place] [address] Anion gap [Moles/Vol] 11 mmol/L Normal 7-20 [facility] Comment on above: Performed By: #### L [id number] ####[facility] ([facility] [place] [address] AST [Catalytic activity/Vol] 88 U/L High 13-39 [facility] Comment on above: Performed By: #### L [id number] ####[facility] (BEAKER)[address] [place] [address] Bilirubin [Mass/Vol] 5.5 mg/dL High 0.3-1.0 [facility] Comment on above: Performed By: #### L [id number] ####[facility] (BEAKER)[address] [place] [address] Calcium [Mass/Vol] 8.0 mg/dL Low 8.6-10.3 [facility] Comment on above: Performed By: #### L [id number] ####[facility] ([facility])[address] [place] [address] Chloride [Moles/Vol] 104 mmol/L Normal 98-107 [facility] Comment on above: Performed By: #### L [id number] ####[facility] ([facility])[address] [place] [address] CO2 [Moles/Vol] 24 mmol/L Normal 21-31 [facility] Comment on above: Performed By: #### L [id number] ####[facility] ([facility])[address] [place] [address] Creatinine [Mass/Vol] 0.58 mg/dL Low 0.60-1.20 [facility] Comment on above: Performed By: #### L [id number] ####[facility] ([facility])[address] [place] [address] GLOMERULAR FILTRATION RATE ML/MIN/1.73 SQ M.PREDICTED 90.9 mL/min/1.73m*2 Normal >60.0 [facility] Comment on above: Result Comment: [facility]???s estimated glomerular filtration rate (eGFR) will no longer include consideration of race in its calculation. The National Kidney Foundation???s eGFR Task Force developed new recommendations for the estimation of the glomerular filtration rate in the [place] They recommend immediate implementation of the new equation refit without the race variable in all laboratories because the calculation does not include race. In addition to not including race in the calculation and reporting, it included diversity in its development, and has acceptable performance characteristics and potential consequences that do not disproportionately affect any one group of individuals. Performed By: #### L [id number] ####[facility] ([facility])[address] [place] [address] Glucose [Mass/Vol] 99 mg/dL Normal 70-100 [facility] Comment on above: Performed By: #### L [id number] ####[facility] ([facility])[address] [place] [address] Potassium [Moles/Vol] 3.7 mmol/L Normal 3.5-5.1 [facility] Comment on above: Performed By: #### L [id number] ####[facility] ([facility])[address] [place] [address] Protein [Mass/Vol] 4.8 g/dL Low 6.0-8.3 [facility] Comment on above: Performed By: #### L [id number] ####[facility] ([facility])[address] [place] [address] Sodium [Moles/Vol] 135 mmol/L Low 136-145 [facility] Comment on above: Performed By: #### L [id number] ####[facility] ([facility])[address] [place] [address] Urea nitrogen [Mass/Vol] 8 mg/dL Normal 7-25 [facility] Comment on above: Performed By: #### L [id number] ####[facility] ([facility])[address] [place] [address] UREA NITROGEN/CREATININ E (MASS RATIO) IN SER/PLAS 13.8 [facility] Comment on above: Performed By: #### L [id number] ####[facility] ([facility])[address] [place] [address] DSon 07-11-2024 DS Normal [facility] Orders Onlyon 07-11-2024 Orders Only [id number] Alissa Kumar 1945 F Date Provider Department Center 07/11/2024 JOSE LUIS RAJPUT [facility] 4AB None No family history on file Normal [facility] 30on 07-10-2024 30 Normal [facility] 30 Normal [facility] CBC WITH AUTO DIFFERENTIALon 07-10-2024 Erythrocyte distribution width (RBC) [Ratio] 22.9 % High 11.5-15.0 [facility] Comment on above: Performed By: #### L [id number] ####[facility] ([facility])[address] [place] [address] ERYTHROCYTE MEAN CORPUSCULAR HEMOGLOBIN CONCENTRATION (G/DL) BY AUTOMATED 31.6 g/dL Low 32.0-35.0 [facility] Comment on above: Performed By: #### L [id number] ####[facility] ([facility])[address] [place] [address] Hematocrit (Bld) [Volume fraction] 30.7 % Low 36.0-48.0 [facility] Comment on above: Performed By: #### L [id number] ####[facility] ([facility])[address] [place] [address] Hemoglobin (Bld) [Mass/Vol] 9.7 g/dL Low 12.0-15.0 [facility] Comment on above: Performed By: #### L [id number] ####[facility] ([facility])[address] [place] [address] IMMATURE PLATELET FRACTION % 5.4 % Normal 0.8-6.3 [facility] Comment on above: Performed By: #### L [id number] ####[facility] ([facility])[address] [place] [address] MCH (RBC) [Entitic mass] 28.9 pg Normal 27.0-33.0 [facility] Comment on above: Performed By: #### L [id number] ####[facility] ([facility])[address] [place] [address] MCV (RBC) [Entitic vol] 91.4 fL Normal 82.0-98.0 [facility] Comment on above: Performed By: #### L [id number] ####[facility] ([facility])[address] [place] [address] NRBC (PER 100 WBCS) BY AUTOMATED COUNT 0.0 % Normal 0 [facility] Comment on above: Performed By: #### L [id number] ####[facility] ([facility])[address] [place] [address] PLATELETS (10*3/UL) IN BLOOD AUTOMATED COUNT 471 10*3/uL High 150-400 [facility] Comment on above: Performed By: #### L [id number] ####[facility] ([facility])[address] [place] [address] RBC (Bld) [#/Vol] 3.36 10*6/uL Low 3.80-5.00 [facility] Comment on above: Performed By: #### L [id number] ####[facility] ([facility])[address] [place] [address] WBC (Bld) [#/Vol] 19.79 10*3/uL High 4.00-10.60 [facility] Comment on above: Performed By: #### L [id number] ####[facility] ([facility])[address] [place] [address] COMPREHENSIVE METABOLIC PANE Rigoberto 07-10-2024 Albumin [Mass/Vol] 2.5 g/dL Low 3.5-5.7 [facility] Comment on above: Performed By: #### L [id number] ####[facility] ([facility] [place] [address] ALP [Catalytic activity/Vol] 791 U/L High 34-104 [facility] Comment on above: Performed By: #### L [id number] ####[facility] ([facility] [place] [address] ALT [Catalytic activity/Vol] 67 U/L High 7-52 [facility] Comment on above: Performed By: #### L [id number] ####[facility] ([facility])[address] [place] [address] Anion gap [Moles/Vol] 10 mmol/L Normal 7-20 [facility] Comment on above: Performed By: #### L [id number] ####[facility] ([facility])[address] [place] [address] AST [Catalytic activity/Vol] 86 U/L High 13-39 [facility] Comment on above: Performed By: #### L [id number] ####[facility] ([facility])[address] [place] [address] Bilirubin [Mass/Vol] 6.1 mg/dL High 0.3-1.0 [facility] Comment on above: Performed By: #### L [id number] ####[facility] ([facility] [place] [address] Calcium [Mass/Vol] 8.0 mg/dL Low 8.6-10.3 [facility] Comment on above: Performed By: #### L [id number] ####[facility] ([facility] [place] [address] Chloride [Moles/Vol] 101 mmol/L Normal 98-107 [facility] Comment on above: Performed By: #### L [id number] ####[facility] ([facility] [place] [address] CO2 [Moles/Vol] 26 mmol/L Normal 21-31 [facility] Comment on above: Performed By: #### L [id number] ####[facility] ([facility])[address] [place] [address] Creatinine [Mass/Vol] 0.67 mg/dL Normal 0.60-1.20 [facility] Comment on above: Performed By: #### L [id number] ####[facility] ([facility])[address] [place] [address] GLOMERULAR FILTRATION RATE ML/MIN/1.73 SQ M.PREDICTED 87.8 mL/min/1.73m*2 Normal >60.0 [facility] Comment on above: Result Comment: [facility]???s estimated glomerular filtration rate (eGFR) will no longer include consideration of race in its calculation. The National Kidney Foundation???s eGFR Task Force developed new recommendations for the estimation of the glomerular filtration rate in the [place] They recommend immediate implementation of the new equation refit without the race variable in all laboratories because the calculation does not include race. In addition to not including race in the calculation and reporting, it included diversity in its development, and has acceptable performance characteristics and potential consequences that do not disproportionately affect any one group of individuals. Performed By: #### L [id number] ####[facility] ([facility])[address] [place] [address] Glucose [Mass/Vol] 101 mg/dL High 70-100 [facility] Comment on above: Performed By: #### L [id number] ####[facility] ([facility])[address] [place] [address] Potassium [Moles/Vol] 3.5 mmol/L Normal 3.5-5.1 [facility] Comment on above: Performed By: #### L [id number] ####[facility] ([facility])[address] [place] [address] Protein [Mass/Vol] 5.1 g/dL Low 6.0-8.3 [facility] Comment on above: Performed By: #### L [id number] ####[facility] ([facility])[address] [place] [address] Sodium [Moles/Vol] 133 mmol/L Low 136-145 [facility] Comment on above: Performed By: #### L [id number] ####[facility] ([facility])[address] [place] [address] Urea nitrogen [Mass/Vol] 9 mg/dL Normal 7-25 [facility] Comment on above: Performed By: #### L [id number] ####[facility] ([facility])[address] [place] [address] UREA NITROGEN/CREATININ E (MASS RATIO) IN SER/PLAS 13.4 Normal [facility] Comment on above: Performed By: #### L [id number] ####[facility] ([facility])[address] [place] [address] MANUAL DIFFERENTIALon 2024 ANISOCYTOSIS PRESENCE IN BLOOD BY LIGHT MICROSCOPY Moderate Normal [facility] Comment on above: Performed By: #### L [id number] ####[facility] ([facility])[address] [place] [address] BASOPHILS (10*3/UL) IN BLOOD BY CALCULATION 0.00 10*3/uL Normal 0.00-0.20 [facility] Comment on above: Performed By: #### L [id number] ####[facility] ([facility])[address] [place] [address] BASOPHILS/100 LEUKOCYTES IN BLOOD BY AUTOMATED COUNT 0.0 % Normal 0.0-1.0 [facility] Comment on above: Performed By: #### L [id number] ####[facility] ([facility])[address] [place] [address] EOSINOPHILS (10*3/UL) IN BLOOD BY CALCULATION 1.19 10*3/uL High 0.00-0.50 [facility] Comment on above: Performed By: #### L [id number] ####[facility] ([facility])[address] [place] [address] EOSINOPHILS/100 LEUKOCYTES IN BLOOD BY AUTOMATED COUNT 6.0 % Normal 0.0-6.0 [facility] Comment on above: Performed By: #### L [id number] ####[facility] ([facility])[address] [place] [address] HYPOCHROMIA (PRESENCE) IN BLOOD BY LIGHT MICROSCOPY Slight Normal [facility] Comment on above: Performed By: #### L [id number] ####[facility] ([facility])[address] [place] [address] LYMPHOCYTES (10*3/UL) IN BLOOD BY CALCULATION 3.80 10*3/uL Normal 1.20-4.00 [facility] Comment on above: Performed By: #### L [id number] ####[facility] ([facility])[address] [place] [address] LYMPHOCYTES/100 LEUKOCYTES IN BLOOD BY AUTOMATED COUNT 19.2 % Low 20.0-45.0 [facility] Comment on above: Performed By: #### L [id number] ####[facility] ([facility])[address] [place] [address] METAMYELOCYTES (10*3/UL) IN BLOOD BY CALCULATION 0.40 10*3/uL High 0.00 [facility] Comment on above: Performed By: #### L [id number] ####[facility] ([facility])[address] [place] [address] METAMYELOCYTES/100 LEUKOCYTES IN BLOOD CELLAVISION 2.0 % High 0.0-0.0 [facility] Comment on above: Performed By: #### L [id number] ####[facility] ([facility])[address] [place] [address] MONOCYTES (10*3/UL) IN BLOOD BY CALCUATION 0.91 10*3/uL Normal 0.10-1.00 [facility] Comment on above: Performed By: #### L [id number] ####[facility] ([facility])[address] [place] [address] MONOCYTES/100 LEUKOCYTES IN BLOOD BY AUTOMATED COUNT 4.6 % Low 5.0-12.0 [facility] Comment on above: Performed By: #### L [id number] ####[facility] ([facility])[address] [place] [address] NEUTROPHILS (10*3/UL) IN BLOOD BY CALCULATION 13.5 10*3/uL High 1.6-7.6 [facility] Comment on above: Performed By: #### L [id number] ####[facility] ([facility])[address] [place] [address] NEUTROPHILS/100 LEUKOCYTES IN BLOOD BY AUTOMATED COUNT 68.2 % Normal 40.0-72.0 [facility] Comment on above: Performed By: #### L [id number] ####[facility] ([facility])[address] [place] [address] PLASMA CELLS/100 LEUKOCYTES IN BLOOD 0 % Normal 0 [facility] Comment on above: Performed By: #### L [id number] ####[facility] ([facility])[address] [place] [address] PLATELETS GIANT PRESENCE IN BLOOD BY LIGHT MICROSCOPY Present Normal [facility] Comment on above: Performed By: #### L [id number] ####[facility] ([facility])[address] [place] [address] POIKILOCYTOSIS (PRESENCE) IN BLOOD BY LIGHT MICROSCOPY Slight Normal [facility] Comment on above: Performed By: #### L [id number] ####[facility] ([facility])[address] [place] [address] POLYCHROMASIA IN BLOOD BY LIGHT MICROSCOPY Moderate Normal [facility] Comment on above: Performed By: #### L [id number] ####[facility] ([facility])[address] [place] [address] VARIANT LYMPHOCYTES (10*3/UL) IN BLOOD BY CALCULATION 0.00 10*3/uL Normal 0.00 [facility] Comment on above: Performed By: #### L [id number] ####[facility] ([facility])[address] [place] [address] VARIANT LYMPHOCYTES/100 LEUKOCYTES IN BLOOD CELLAVISION 0.0 % Normal 0.0-0.0 [facility] Comment on above: Performed By: #### L [id number] ####[facility] ([facility])[address] [place] [address] 30on 07-09-2024 30 Normal [facility] BASIC METABOLIC PANELon 06-16 Anion gap [Moles/Vol] 9 mmol/L Normal 7-20 [facility] Comment on above: Performed By: #### L [id number] ####[facility] ([facility])[address] [place] [address] Calcium [Mass/Vol] 7.6 mg/dL Low 8.6-10.3 [facility] Comment on above: Performed By: #### L [id number] ####[facility] ([facility])[address] [place] [address] Chloride [Moles/Vol] 103 mmol/L Normal 98-107 [facility] Comment on above: Performed By: #### L [id number] ####[facility])[address] [place] [address] CO2 [Moles/Vol] 25 mmol/L Normal 21-31 [facility] Comment on above: Performed By: #### L [id number] ####[facility] ([facility])[address] [place] [address] Creatinine [Mass/Vol] 0.57 mg/dL Low 0.60-1.20 [facility] Comment on above: Performed By: #### L [id number] ####[facility] ([facility] [place] [address] GLOMERULAR FILTRATION RATE ML/MIN/1.73 SQ M.PREDICTED 91.2 mL/min/1.73m*2 Normal >60.0 [facility] Comment on above: Result Comment: [facility]???s estimated glomerular filtration rate (eGFR) will no longer include consideration of race in its calculation. The National Kidney Foundation???s eGFR Task Force developed new recommendations for the estimation of the glomerular filtration rate in the [place] They recommend immediate implementation of the new equation refit without the race variable in all laboratories because the calculation does not include race. In addition to not including race in the calculation and reporting, it included diversity in its development, and has acceptable performance characteristics and potential consequences that do not disproportionately affect any one group of individuals. Performed By: #### L [id number] ####[facility])[address] [place] [address] Glucose [Mass/Vol] 92 mg/dL Normal 70-100 [facility] Comment on above: Performed By: #### L [id number] ####[facility] ([facility])[address] [place] [address] Potassium [Moles/Vol] 3.2 mmol/L Low 3.5-5.1 [facility] Comment on above: Performed By: #### L [id number] ####[facility] ([facility])[address] [place] [address] Sodium [Moles/Vol] 134 mmol/L Low 136-145 [facility] Comment on above: Performed By: #### L [id number] ####[facility] ([facility])[address] [place] [address] Urea nitrogen [Mass/Vol] 9 mg/dL Normal 7-25 [facility] Comment on above: Performed By: #### L [id number] ####[facility] ([facility])[address] [place] [address] UREA NITROGEN/CREATININ E (MASS RATIO) IN SER/PLAS 15.8 Normal [facility] Comment on above: Performed By: #### L [id number] ####[facility])[address] [place] [address] CBC WITH AUTO DIFFERENTIALon 07-09-2024 Erythrocyte distribution width (RBC) [Ratio] 23.0 % High 11.5-15.0 [facility] Comment on above: Performed By: #### L [id number] ####[facility])[address] [place] [address] ERYTHROCYTE MEAN CORPUSCULAR HEMOGLOBIN CONCENTRATION (G/DL) BY AUTOMATED 31.9 g/dL Low 32.0-35.0 [facility] Comment on above: Performed By: #### L [id number] ####[facility] [place] [address] Hematocrit (Bld) [Volume fraction] 25.4 % Low 36.0-48.0 [facility] Comment on above: Performed By: #### L [id number] ####[facility] [place] [address] Hemoglobin (Bld) [Mass/Vol] 8.1 g/dL Low 12.0-15.0 [facility] Comment on above: Performed By: #### L [id number] ####[facility] [facility] ([facility]AKER)[address] [place] [address] MCH (RBC) [Entitic mass] 29.6 pg Normal 27.0-33.0 [facility] Comment on above: Performed By: #### L [id number] ####[facility] [place] [address] MCV (RBC) [Entitic vol] 92.7 fL Normal 82.0-98.0 [facility] Comment on above: Performed By: #### L [id number] ####[facility] [place] [address] NRBC (PER 100 WBCS) BY AUTOMATED COUNT 0.0 % Normal 0 [facility] Comment on above: Performed By: #### L [id number] ####[facility])[address] [place] [address] PLATELETS (10*3/UL) IN BLOOD AUTOMATED COUNT 370 10*3/uL Normal 150-400 [facility] Comment on above: Performed By: #### L [id number] ####[facility] [place] [address] RBC (Bld) [#/Vol] 2.74 10*6/uL Low 3.80-5.00 [facility] Comment on above: Performed By: #### L [id number] ####[facility])[address] [place] [address] WBC (Bld) [#/Vol] 17.11 10*3/uL High 4.00-10.60 [facility] Comment on above: Performed By: #### L [id number] ####[facility] [place] [address] HEPATIC FUNCTION PANELon Albumin [Mass/Vol] 2.1 g/dL Low 3.5-5.7 [facility] Comment on above: Performed By: #### L [id number] ####[facility] ([place])[address] [place] [address] ALP [Catalytic activity/Vol] 612 U/L High 34-104 [facility] Comment on above: Performed By: #### L [id number] ####[facility] [place])[address] [place] [address] ALT [Catalytic activity/Vol] 60 U/L High 7-52 [facility] Comment on above: Performed By: #### L [id number] ####[facility] [place])[address] [place] [address] AST [Catalytic activity/Vol] 64 U/L High 13-39 [facility] Comment on above: Performed By: #### L [id number] ####[facility] [place])[address] [place] [address] Bilirubin [Mass/Vol] 6.0 mg/dL High 0.3-1.0 [facility] Comment on above: Performed By: #### L [id number] ####[facility] ([facility] [place])[address] [place] [address] Magnesium [Mass/Vol] 3.6 mg/dL High 0-0.2 [facility] Comment on above: Performed By: #### L [id number] ####[facility] ([facility] [place])[address] [place] [address] Protein [Mass/Vol] 4.2 g/dL Low 6.0-8.3 [facility] Comment on above: Performed By: #### L [id number] ####[facility] ([facility] [place])[address] [place] [address] MANUAL DIFFERENTIALon 2024 ANISOCYTOSIS PRESENCE IN BLOOD BY LIGHT MICROSCOPY Marked Normal [facility] Comment on above: Performed By: #### L [id number] ####[facility] [place])[address] [place] [address] BASOPHILS (10*3/UL) IN BLOOD BY CALCULATION 0.09 10*3/uL Normal 0.00-0.20 [facility] Comment on above: Performed By: #### L [id number] ####[facility] [place])[address] [place] [address] BASOPHILS/100 LEUKOCYTES IN BLOOD BY AUTOMATED COUNT 0.5 % Normal 0.0-1.0 [facility] Comment on above: Performed By: #### L [id number] ####[facility] [place])[address] [place] [address] EOSINOPHILS (10*3/UL) IN BLOOD BY CALCULATION 0.63 10*3/uL High 0.00-0.50 [facility] Comment on above: Performed By: #### L [id number] ####[facility])[address] [place] [address] EOSINOPHILS/100 LEUKOCYTES IN BLOOD BY AUTOMATED COUNT 3.7 % Normal 0.0-6.0 [facility] Comment on above: Performed By: #### L [id number] ####[facility])[address] [place] [address] IMMATURE GRANULOCYTES (10*3/UL) IN BLOOD BY CALCULATION 0.58 10*3/uL High 0.00-0.20 [facility] Comment on above: Performed By: #### L [id number] ####[facility] [place])[address] [place] [address] IMMATURE GRANULOCYTES/100 LEUKOCYTES IN BLOOD BY AUTOMATED COUNT 3.4 % High 0.0-1.0 [facility] Comment on above: Performed By: #### L [id number] ####[facility] ([facility] [place])[address] [place] [address] LYMPHOCYTES (10*3/UL) IN BLOOD BY CALCULATION 2.77 10*3/uL Normal 1.20-4.00 [facility] Comment on above: Performed By: #### L [id number] ####[facility] [place] [address] LYMPHOCYTES/100 LEUKOCYTES IN BLOOD BY AUTOMATED COUNT 16.2 % Low 20.0-45.0 [facility] Comment on above: Performed By: #### L [id number] ####[facility] [place])[address] [place] [address] MONOCYTES (10*3/UL) IN BLOOD BY CALCUATION 1.40 10*3/uL High 0.10-1.00 [facility] Comment on above: Performed By: #### L [id number] ####[facility] ([facility] [place])[address] [place] [address] MONOCYTES/100 LEUKOCYTES IN BLOOD BY AUTOMATED COUNT 8.2 % Normal 5.0-12.0 [facility] Comment on above: Performed By: #### L [id number] ####[facility] [place])[address] [place] [address] NEUTROPHILS (10*3/UL) IN BLOOD BY CALCULATION 11.6 10*3/uL High 1.6-7.6 [facility] Comment on above: Performed By: #### L [id number] ####[facility] ([facility] [place])[address] [place] [address] NEUTROPHILS/100 LEUKOCYTES IN BLOOD BY AUTOMATED COUNT 68.0 % Normal 40.0-72.0 [facility] Comment on above: Performed By: #### L [id number] ####[facility] [place])[address] [place] [address] POIKILOCYTOSIS (PRESENCE) IN BLOOD BY LIGHT MICROSCOPY Slight Normal [facility] Comment on above: Performed By: #### L [id number] ####[facility] [place])[address] [place] [address] POLYCHROMASIA IN BLOOD BY LIGHT MICROSCOPY Slight Normal [facility] Comment on above: Performed By: #### L [id number] ####[facility] [place])[address] [place] [address] [id number] 07-08-2024 [id number] Normal [facility] 30on 07-08-2024 30 Normal [facility] 30 Normal [facility] 30 Normal [facility] ANESon 07-08-2024 ANES Normal [facility] ANES Normal [facility] BASIC METABOLIC PANELon 02-2 Anion gap [Moles/Vol] 7 mmol/L Normal 7-20 [facility] Comment on above: Performed By: #### L [id number] ####[facility] ([facility]AK[facility])[address] [place] [address] Calcium [Mass/Vol] 7.7 mg/dL Low 8.6-10.3 [facility] Comment on above: Performed By: #### L [id number] ####[facility])[address] [place] [address] Chloride [Moles/Vol] 102 mmol/L Normal 98-107 [facility] Comment on above: Performed By: #### L [id number] ####[facility])[address] [place] [address] CO2 [Moles/Vol] 28 mmol/L Normal 21-31 [facility] Comment on above: Performed By: #### L [id number] ####[facility])[address] [place] [address] Creatinine [Mass/Vol] 0.60 mg/dL Normal 0.60-1.20 [facility] Comment on above: Performed By: #### L [id number] ####[facility])[address] [place] [address] GLOMERULAR FILTRATION RATE ML/MIN/1.73 SQ M.PREDICTED 90.1 mL/min/1.73m*2 Normal >60.0 [facility] Comment on above: Result Comment: [facility]???s estimated glomerular filtration rate (eGFR) will no longer include consideration of race in its calculation. The National Kidney Foundation???s eGFR Task Force developed new recommendations for the estimation of the glomerular filtration rate in the [place] They recommend immediate implementation of the new equation refit without the race variable in all laboratories because the calculation does not include race. In addition to not including race in the calculation and reporting, it included diversity in its development, and has acceptable performance characteristics and potential consequences that do not disproportionately affect any one group of individuals. Performed By: #### L [id number] ####[facility] ([facility])[address] [place] [address] Glucose [Mass/Vol] 92 mg/dL Normal 70-100 [facility] Comment on above: Performed By: #### L [id number] ####[facility] ([facility] [place] [address] Potassium [Moles/Vol] 3.5 mmol/L Normal 3.5-5.1 [facility] Comment on above: Performed By: #### L [id number] ####[facility] ([facility] [place] [address] Sodium [Moles/Vol] 133 mmol/L Low 136-145 [facility] Comment on above: Performed By: #### L [id number] ####[facility] ([place])[address] [place] [address] Urea nitrogen [Mass/Vol] 8 mg/dL Normal 7-25 [facility] Comment on above: Performed By: #### L [id number] ####[facility] ([facility] [place] [address] UREA NITROGEN/CREATININ E (MASS RATIO) IN SER/PLAS 13.3 Normal [facility] Comment on above: Performed By: #### L [id number] ####[facility] ([facility])[address] [place] [address] CBCon 07-08-2024 Erythrocyte distribution width (RBC) [Ratio] 23.3 % High 11.5-15.0 [facility] Comment on above: Performed By: #### L [id number] ####[facility] ([facility] [place] [address] ERYTHROCYTE MEAN CORPUSCULAR HEMOGLOBIN CONCENTRATION (G/DL) BY AUTOMATED 31.7 g/dL Low 32.0-35.0 [facility] Comment on above: Performed By: #### L [id number] ####[facility] ([facility] [place] [address] Hematocrit (Bld) [Volume fraction] 26.5 % Low 36.0-48.0 [facility] Comment on above: Performed By: #### L [id number] ####[facility] ([facility] [place] [address] Hemoglobin (Bld) [Mass/Vol] 8.4 g/dL Low 12.0-15.0 [facility] Comment on above: Performed By: #### L [id number] ####[facility] ([facility] [place] [address] MCH (RBC) [Entitic mass] 29.3 pg Normal 27.0-33.0 [facility] Comment on above: Performed By: #### L [id number] ####[facility] ([facility])[address] [place], [place] [address] MCV (RBC) [Entitic vol] 92.3 fL Normal 82.0-98.0 [facility] Comment on above: Performed By: #### L [id number] ####[facility] ([facility] [place])[address] [place] [address] PLATELETS (10*3/UL) IN BLOOD AUTOMATED COUNT 342 10*3/uL Normal 150-400 [facility] Comment on above: Performed By: #### L [id number] ####[facility] ([facility] [place] [address] RBC (Bld) [#/Vol] 2.87 10*6/uL Low 3.80-5.00 [facility] Comment on above: Performed By: #### L [id number] ####[facility] ([facility] [place] [address] WBC (Bld) [#/Vol] 17.81 10*3/uL High 4.00-10.60 [facility] Comment on above: Performed By: #### L [id number] ####[facility] ([facility] [place] [address] HEPATIC FUNCTION PANELon Albumin [Mass/Vol] 2.1 g/dL Low 3.5-5.7 [facility] Comment on above: Performed By: #### L [id number] ####[facility] ([facility])[address] [place] [address] ALP [Catalytic activity/Vol] 517 U/L High 34-104 [facility] Comment on above: Performed By: #### L [id number] ####[facility] [place])[address] [place] [address] ALT [Catalytic activity/Vol] 68 U/L High 7-52 [facility] Comment on above: Performed By: #### L [id number] ####[facility])[address] [place] [address] AST [Catalytic activity/Vol] 56 U/L High 13-39 [facility] Comment on above: Performed By: #### L [id number] ####[facility])[address] [place] [address] Bilirubin [Mass/Vol] 6.5 mg/dL High 0.3-1.0 [facility] Comment on above: Performed By: #### L [id number] ####[facility])[address] [place] [address] Magnesium [Mass/Vol] 3.9 mg/dL High 0-0.2 [facility] Comment on above: Performed By: #### L [id number] ####[facility])[address] [place] [address] Protein [Mass/Vol] 4.2 g/dL Low 6.0-8.3 [facility] Comment on above: Performed By: #### L [id number] ####[facility])[address] [place] [address] HISTOLOGY - TISSUE EXAMon LAB AP CASE REPORT Normal [facility] Comment on above: Result Comment: Surg ical Pathology Case: [id number] Provider: Bradley Díaz MD Collected: 07/08/2024 1203Ordering Location: [address] Urology Received: 07/08/2024 1453Pathologist: DALY Hadleypecimens: A) - Rectum, RECTUM MASS RULE OUT MALIGNANCY B) - Rectum, RECTAL MASS BIOPSY #2 Performed By: #### L [id number] ####[facility] ([facility])[address] [place] [address] LAB AP CLINICAL INFORMATION Order Diagnoses Normal [facility] Comment on above: Result Comment: W19. XXXA - Fall, initial encounter [ICD-10-CM]R17 - Jaundice [ICD-10-CM]E80.6 - Hyperbilirubinemia [ICD-10-CM]K92.2 - Gastrointestinal hemorrhage, unspecified gastrointestinal hemorrhage type [ICD-10-CM]R79.89 - Abnormal LFTs [ICD-10-CM]K85.90 - Acute pancreatitis, unspecified complication status, unspecified pancreatitis type [ICD-10-CM]K92.2 - GI bleed [ICD-10-CM]I10 - Primary hypertension [ICD-10-CM]K29.81 - Gastrointestinal hemorrhage associated with duodenitis [ICD-10-CM]K62.89 - Rectal mass [ICD-10-CM] Performed By: #### L [id number] ####[facility] [place])[address] [place] [address] LAB AP GROSS DESCRIPTION A. Rectum. Normal [facility] Comment on above: Result Comment: Rece ived in formalin labeled Jenna Kumar, RECTUM MASS RULE OUT MALIGNANCY multiple castillo-brown mucosal tissue fragments measuring 4.0 x 0.9 x 0.5 cm in aggregate. The specimen is submitted entirely in one cassette. The smaller fragments may not survive tissue processing.Mira Campbell, PGY-1B. Rectum.Received in formalin labeled Camilor M Covella, RECTAL MASS BIOPSY #2 is 1 castillo-brown mucosal tissue fragment measuring 0.5 x 0.4 x 0.4 cm. The specimen is submitted entirely in one cassette.Mira Campbell, PGY-1 Performed By: #### L [id number] ####[facility] ([facility] [place] [address] LAB AP MICROSCOPIC DESCRIPTION Microscopic examination performed. Normal [facility] Comment on above: Performed By: #### L [id number] ####[facility] ([facility])[address] [place] [address] LAB AP REPORT FINAL DIAGNOSIS NARRATIVE Normal [facility] Comment on above: Result Comment: A. C olon, rectal mass, biopsy: - Tubular adenoma with focal high grade dysplasiaB. Colon, rectal mass #2, biopsy: - Tubular adenoma Performed By: #### L [id number] ####[facility] [place])[address] [place] [address] HPon 07-08-2024 HP Normal [facility] NURSNOTEon 07-08-2024 NURSNOTE All positioning santo fernie removed pt remains supine. Normal [facility] CBCon 07-07-2024 Erythrocyte distribution width (RBC) [Ratio] 23.5 % High 11.5-15.0 [facility] Comment on above: Performed By: #### L [id number] ####[facility] ([place])[address] [place] [address] ERYTHROCYTE MEAN CORPUSCULAR HEMOGLOBIN CONCENTRATION (G/DL) BY AUTOMATED 32.8 g/dL Normal 32.0-35.0 [facility] Comment on above: Performed By: #### L [id number] ####[facility] ([facility] [place])[address] [place] [address] Hematocrit (Bld) [Volume fraction] 25.3 % Low 36.0-48.0 [facility] Comment on above: Performed By: #### L [id number] ####[facility])[address] [facility] [address] Hemoglobin (Bld) [Mass/Vol] 8.3 g/dL Low 12.0-15.0 [facility] Comment on above: Performed By: #### L [id number] ####[facility] ([facility] [place])[address] [place] [address] MCH (RBC) [Entitic mass] 29.5 pg Normal 27.0-33.0 [facility] Comment on above: Performed By: #### L [id number] ####[facility] ([facility])[address] [place] [address] MCV (RBC) [Entitic vol] 90.0 fL Normal 82.0-98.0 [facility] Comment on above: Performed By: #### L [id number] ####[facility] ([facility])[address] [place] [address] PLATELETS (10*3/UL) IN BLOOD AUTOMATED COUNT 282 10*3/uL Normal 150-400 [facility] Comment on above: Performed By: #### L [id number] ####[facility] ([facility])[address] [place] [address] RBC (Bld) [#/Vol] 2.81 10*6/uL Low 3.80-5.00 [facility] Comment on above: Performed By: #### L [id number] ####[facility] ([facility])[address] [place] [address] WBC (Bld) [#/Vol] 21.62 10*3/uL High 4.00-10.60 [facility] Comment on above: Performed By: #### L [id number] ####[facility] [place])[address] [place] [address] COMPREHENSIVE METABOLIC PANE Rigoberto 07-07-2024 Albumin [Mass/Vol] 2.1 g/dL Low 3.5-5.7 [facility] Comment on above: Performed By: #### L [id number] ####[facility] ([facility] [place] [address] ALP [Catalytic activity/Vol] 505 U/L High 34-104 [facility] Comment on above: Performed By: #### L [id number] ####[facility] ([facility])[address] [place] [address] ALT [Catalytic activity/Vol] 83 U/L High 7-52 [facility] Comment on above: Performed By: #### L [id number] ####[facility] (BEAKER)[address] [place] [address] Anion gap [Moles/Vol] 10 mmol/L Normal 7-20 [facility] Comment on above: Performed By: #### L [id number] ####[facility] ([facility] [place] [address] AST [Catalytic activity/Vol] 62 U/L High 13-39 [facility] Comment on above: Performed By: #### L [id number] ####[facility] [place])[address] [place] [address] Bilirubin [Mass/Vol] 7.7 mg/dL High 0.3-1.0 [facility] Comment on above: Performed By: #### L [id number] ####[facility] [place])[address] [place] [address] Calcium [Mass/Vol] 7.8 mg/dL Low 8.6-10.3 [facility] Comment on above: Performed By: #### L [id number] ####[facility] ([facility] [place] [address] Chloride [Moles/Vol] 102 mmol/L Normal 98-107 [facility] Comment on above: Performed By: #### L [id number] ####[facility])[address] [place] [address] CO2 [Moles/Vol] 27 mmol/L Normal 21-31 [facility] Comment on above: Performed By: #### L [id number] ####[facility] (BEAKER)[address] [place] [address] Creatinine [Mass/Vol] 0.63 mg/dL Normal 0.60-1.20 [facility] Comment on above: Performed By: #### L [id number] ####[facility] (BEAKER)[address] [place] [address] GLOMERULAR FILTRATION RATE ML/MIN/1.73 SQ M.PREDICTED 89.1 mL/min/1.73m*2 Normal >60.0 [facility] Comment on above: Result Comment: [facility]???s estimated glomerular filtration rate (eGFR) will no longer include consideration of race in its calculation. The National Kidney Foundation???s eGFR Task Force developed new recommendations for the estimation of the glomerular filtration rate in the [place] They recommend immediate implementation of the new equation refit without the race variable in all laboratories because the calculation does not include race. In addition to not including race in the calculation and reporting, it included diversity in its development, and has acceptable performance characteristics and potential consequences that do not disproportionately affect any one group of individuals. Performed By: #### L [id number] ####[facility])[address] [place] [address] Glucose [Mass/Vol] 91 mg/dL Normal 70-100 [facility] Comment on above: Performed By: #### L [id number] ####[facility] ([facility])[address] [place] [address] Potassium [Moles/Vol] 3.6 mmol/L Normal 3.5-5.1 [facility] Comment on above: Performed By: #### L [id number] ####[facility] [place])[address] [place] [address] Protein [Mass/Vol] 4.1 g/dL Low 6.0-8.3 [facility] Comment on above: Performed By: #### L [id number] ####[facility])[address] [place] [address] Sodium [Moles/Vol] 135 mmol/L Low 136-145 [facility] Comment on above: Performed By: #### L [id number] ####[facility])[address] [place] [address] Urea nitrogen [Mass/Vol] 11 mg/dL Normal 7-25 [facility] Comment on above: Performed By: #### L [id number] ####[facility] ([facility] [place] [address] UREA NITROGEN/CREATININ E (MASS RATIO) IN SER/PLAS 17.5 Normal [facility] Comment on above: Performed By: #### L [id number] ####[facility] ([facility]ONATHAN)[address] [place] [address] PROTIME-INRon 07-07-2024 INR IN PPP BY COAGULATION ASSAY 1.03 Normal 0.90-1.10 [facility] Comment on above: Result Comment: [facility] P RECOMMENDED INR FOR WARFARIN THERAPY CONDITION INRPROPHYLAXIS OF VENOUS THROMBOSIS 2-3(HIGH-RISK SURGERY)TREATMENT OF VENOUS THROMBOSIS 2-3TREATMENT OF PULMONARY EMBOLISM 2-3PREVENTION OF SYSTEMIC EMBOLISM: 2-3 ACUTE MYOCARDIAL INFARCTION TISSUE HEART VALVES VALVULAR HEART DISEASE ATRIAL FIBRILLATION RECURRENT SYSTEMIC EMBOLISMMECHANICAL HEART VALVE 2.5-3.5 FROM: ORAL ANTICOAGULANTS. MECHANISM OF ACTION, CLINICAL EFFECTIVENESS, AND OPTIMAL THERAPEUTIC RANGE. CHEST 1995;108:231S-246S. Performed By: #### L [id number] ####[facility] ([facility]CAR)[address] [place] [address] PROTHROMBIN TIME (PT) IN PPP BY COAGULATION ASSAY 13.5 Seconds Normal 12.3-14.8 [facility] Comment on above: Performed By: #### L [id number] ####[facility] ([facility])[address] [place] [address] TYPE AND SCREENon 07-07-2024 AB SCREEN Negative Normal [facility] Comment on above: Performed By: #### L [id number] ####[facility] [facility], ABO group Nom (Bld) O Normal [facility] Comment on above: Performed By: #### L [id number] ####[facility], RH TYPE IN BLOOD Positive Normal [facility] Comment on above: Performed By: #### L [id number] ####[facility], 30on 07-06-2024 30 Normal [facility] 30 The patient is Moder ately Stable - Low risk of patient condition declining or worsening The patient's goals for the shift include comfort The clinical goals for the shift include stable vitals Normal [facility] BLOOD CULTUREon 07-06-2024 Bacteria identified Cx Nom (Bld) No growth at 5 days Normal [facility] Comment on above: Performed By: #### L [id number] ####[facility] [place] [address] C-REACTIVE PROTEINon 025 C REACTIVE PROTEIN (MG/L) IN SER/PLAS 121.9 mg/L High <=5.0 [facility] Comment on above: Result Comment: Test ing performed using a new methodology, turbidimetry. Normal ranges have been updated. Old normal range was <8 mg/L. Performed By: #### L [id number] ####[facility] [place] [address] CBCon 07-06-2024 Erythrocyte distribution width (RBC) [Ratio] 23.8 % High 11.5-15.0 [facility] Comment on above: Performed By: #### L [id number] ####[facility] [place] [address] ERYTHROCYTE MEAN CORPUSCULAR HEMOGLOBIN CONCENTRATION (G/DL) BY AUTOMATED 31.9 g/dL Low 32.0-35.0 [facility] Comment on above: Performed By: #### L [id number] ####[facility] [place] [address] Hematocrit (Bld) [Volume fraction] 25.7 % Low 36.0-48.0 [facility] Comment on above: Performed By: #### L [id number] ####[facility] [place] [address] Hemoglobin (Bld) [Mass/Vol] 8.2 g/dL Low 12.0-15.0 [facility] Comment on above: Performed By: #### L [id number] ####[facility] ([facility])[address] [place] [address] MCH (RBC) [Entitic mass] 28.9 pg Normal 27.0-33.0 [facility] Comment on above: Performed By: #### L [id number] ####[facility] ([facility])[address] [place] [address] MCV (RBC) [Entitic vol] 90.5 fL Normal 82.0-98.0 [facility] Comment on above: Performed By: #### L [id number] ####[facility] ([facility])[address] [place] [address] PLATELETS (10*3/UL) IN BLOOD AUTOMATED COUNT 258 10*3/uL Normal 150-400 [facility] Comment on above: Performed By: #### L [id number] ####[facility] ([facility])[address] [place] [address] RBC (Bld) [#/Vol] 2.84 10*6/uL Low 3.80-5.00 [facility] Comment on above: Performed By: #### L [id number] ####[facility] ([facility] [place] [address] WBC (Bld) [#/Vol] 25.48 10*3/uL High 4.00-10.60 [facility] Comment on above: Performed By: #### L [id number] ####[facility] ([facility] [place] [address] COMPREHENSIVE METABOLIC PANE Rigoberto 07-06-2024 Albumin [Mass/Vol] 2.2 g/dL Low 3.5-5.7 [facility] Comment on above: Performed By: #### L [id number] ####[facility] (BEAKER)[address] [place] [address] ALP [Catalytic activity/Vol] 555 U/L High 34-104 [facility] Comment on above: Performed By: #### L [id number] ####[facility] (BEAKER)[address] [place] [address] ALT [Catalytic activity/Vol] 105 U/L High 7-52 [facility] Comment on above: Performed By: #### L [id number] ####[facility])[address] [place] [address] Anion gap [Moles/Vol] 9 mmol/L Normal 7-20 [facility] Comment on above: Performed By: #### L [id number] ####[facility])[address] [place] [address] AST [Catalytic activity/Vol] 83 U/L High 13-39 [facility] Comment on above: Performed By: #### L [id number] ####[facility] (BEAKER)[address] [place] [address] Bilirubin [Mass/Vol] 8.7 mg/dL High 0.3-1.0 [facility] Comment on above: Performed By: #### L [id number] ####[facility] (BEAKER)[address] [place] [address] Calcium [Mass/Vol] 7.6 mg/dL Low 8.6-10.3 [facility] Comment on above: Performed By: #### L [id number] ####[facility] (BEAKER)[address] [place] [address] Chloride [Moles/Vol] 103 mmol/L Normal 98-107 [facility] Comment on above: Performed By: #### L [id number] ####[facility] (BEAKER)[address] [place] [address] CO2 [Moles/Vol] 24 mmol/L Normal 21-31 [facility] Comment on above: Performed By: #### L [id number] ####[facility] ([facility])[address] [place] [address] Creatinine [Mass/Vol] 0.78 mg/dL Normal 0.60-1.20 [facility] Comment on above: Performed By: #### L [id number] ####[facility] ([facility])[address] [place] [address] GLOMERULAR FILTRATION RATE ML/MIN/1.73 SQ M.PREDICTED 76.3 mL/min/1.73m*2 Normal >60.0 [facility] Comment on above: Result Comment: [facility]???s estimated glomerular filtration rate (eGFR) will no longer include consideration of race in its calculation. The National Kidney Foundation???s eGFR Task Force developed new recommendations for the estimation of the glomerular filtration rate in the [place] They recommend immediate implementation of the new equation refit without the race variable in all laboratories because the calculation does not include race. In addition to not including race in the calculation and reporting, it included diversity in its development, and has acceptable performance characteristics and potential consequences that do not disproportionately affect any one group of individuals. Performed By: #### L [id number] ####[facility] ([facility])[address] [place] [address] Glucose [Mass/Vol] 105 mg/dL High 70-100 [facility] Comment on above: Performed By: #### L [id number] ####[facility] ([facility])[address] [place] [address] Potassium [Moles/Vol] 3.6 mmol/L Normal 3.5-5.1 [facility] Comment on above: Performed By: #### L [id number] ####[facility] ([facility])[address] [place] [address] Protein [Mass/Vol] 4.1 g/dL Low 6.0-8.3 [facility] Comment on above: Performed By: #### L [id number] ####[facility] ([facility])[address] [place] [address] Sodium [Moles/Vol] 132 mmol/L Low 136-145 [facility] Comment on above: Performed By: #### L [id number] ####[facility] (BEAKER)[address] [place] [address] Urea nitrogen [Mass/Vol] 15 mg/dL Normal 7-25 [facility] Comment on above: Performed By: #### L [id number] ####[facility])[address] [place] [address] UREA NITROGEN/CREATININ E (MASS RATIO) IN SER/PLAS 19.2 [facility] Comment on above: Performed By: #### L [id number] ####[facility])[address] [place] [address] 30on - 30 Normal [facility] 30 [facility] BASIC METABOLIC PANELon 06-16 Anion gap [Moles/Vol] 8 mmol/L Normal 7-20 [facility] Comment on above: Performed By: #### L [id number] ####[facility])[address] [place] [address] Calcium [Mass/Vol] 7.5 mg/dL Low 8.6-10.3 [facility] Comment on above: Performed By: #### L [id number] ####[facility])[address] [place] [address] Chloride [Moles/Vol] 103 mmol/L Normal 98-107 [facility] Comment on above: Performed By: #### L [id number] ####[facility] (BEAKER)[address] [place] [address] CO2 [Moles/Vol] 25 mmol/L Normal 21-31 [facility] Comment on above: Performed By: #### L [id number] ####[facility] (BEAKER)[address] [place] [address] Creatinine [Mass/Vol] 0.86 mg/dL Normal 0.60-1.20 [facility] Comment on above: Performed By: #### L [id number] ####[facility] ([facility])[address] [place] [address] GLOMERULAR FILTRATION RATE ML/MIN/1.73 SQ M.PREDICTED 67.8 mL/min/1.73m*2 Normal >60.0 [facility] Comment on above: Result Comment: [facility]???s estimated glomerular filtration rate (eGFR) will no longer include consideration of race in its calculation. The National Kidney Foundation???s eGFR Task Force developed new recommendations for the estimation of the glomerular filtration rate in the [place] They recommend immediate implementation of the new equation refit without the race variable in all laboratories because the calculation does not include race. In addition to not including race in the calculation and reporting, it included diversity in its development, and has acceptable performance characteristics and potential consequences that do not disproportionately affect any one group of individuals. Performed By: #### L [id number] ####[facility] ([facility])[address] [place] [address] Glucose [Mass/Vol] 110 mg/dL High 70-100 [facility] Comment on above: Performed By: #### L [id number] ####[facility] ([facility])[address] [place] [address] Potassium [Moles/Vol] 3.5 mmol/L Normal 3.5-5.1 [facility] Comment on above: Performed By: #### L [id number] ####[facility] ([facility])[address] [place] [address] Sodium [Moles/Vol] 132 mmol/L Low 136-145 [facility] Comment on above: Performed By: #### L [id number] ####[facility] ([facility])[address] [place] [address] Urea nitrogen [Mass/Vol] 17 mg/dL Normal 7-25 [facility] Comment on above: Performed By: #### L [id number] ####[facility] ([facility])[address] [place] [address] UREA NITROGEN/CREATININ E (MASS RATIO) IN SER/PLAS 19.8 Normal [facility] Comment on above: Performed By: #### L [id number] ####[facility] ([facility] [place] [address] CBCon 07-05-2024 Erythrocyte distribution width (RBC) [Ratio] 24.0 % High 11.5-15.0 [facility] Comment on above: Performed By: #### L [id number] ####[facility] ([facility])[address] [place], [place] [address] ERYTHROCYTE MEAN CORPUSCULAR HEMOGLOBIN CONCENTRATION (G/DL) BY AUTOMATED 31.6 g/dL Low 32.0-35.0 [facility] Comment on above: Performed By: #### L [id number] ####[facility] ([facility])[address] [place], [place] [address] Hematocrit (Bld) [Volume fraction] 27.2 % Low 36.0-48.0 [facility] Comment on above: Performed By: #### L [id number] ####[facility] ([facility])[address] [place] [address] Hemoglobin (Bld) [Mass/Vol] 8.6 g/dL Low 12.0-15.0 [facility] Comment on above: Performed By: #### L [id number] ####[facility] ([facility] [place] [address] MCH (RBC) [Entitic mass] 28.7 pg Normal 27.0-33.0 [facility] Comment on above: Performed By: #### L [id number] ####[facility] ([facility] [place] [address] MCV (RBC) [Entitic vol] 90.7 fL Normal 82.0-98.0 [facility] Comment on above: Performed By: #### L [id number] ####[facility] ([facility] [place] [address] PLATELETS (10*3/UL) IN BLOOD AUTOMATED COUNT 261 10*3/uL Normal 150-400 [facility] Comment on above: Performed By: #### L [id number] ####[facility] ([facility] [place] [address] RBC (Bld) [#/Vol] 3.00 10*6/uL Low 3.80-5.00 [facility] Comment on above: Performed By: #### L [id number] ####[facility] ([facility])[address] [place] [address] WBC (Bld) [#/Vol] 29.48 10*3/uL High 4.00-10.60 [facility] Comment on above: Performed By: #### L [id number] ####[facility] ([facility] [place])[address] [place] [address] CONSULTon 07-05-2024 CONSULT Normal [facility] HEPATIC FUNCTION PANELon Albumin [Mass/Vol] 2.2 g/dL Low 3.5-5.7 [facility] Comment on above: Performed By: #### L [id number] ####[facility] ([facility])[address] [place] [address] ALP [Catalytic activity/Vol] 649 U/L High 34-104 [facility] Comment on above: Performed By: #### L [id number] ####[facility] ([facility])[address] [place] [address] ALT [Catalytic activity/Vol] 130 U/L High 7-52 [facility] Comment on above: Performed By: #### L [id number] ####[facility] (BEAKER)[address] [place] [address] AST [Catalytic activity/Vol] 128 U/L High 13-39 [facility] Comment on above: Performed By: #### L [id number] ####[facility] (BEAKER)[address] [place] [address] Bilirubin [Mass/Vol] 8.7 mg/dL High 0.3-1.0 [facility] Comment on above: Performed By: #### L [id number] ####[facility] ([facility])[address] [place] [address] Magnesium [Mass/Vol] 5.2 mg/dL High 0-0.2 [facility] Comment on above: Performed By: #### L [id number] ####[facility] ([facility])[address] [place] [address] Protein [Mass/Vol] 4.1 g/dL Low 6.0-8.3 [facility] Comment on above: Performed By: #### L [id number] ####[facility] ([facility])[address] [place] [address] LACTATE DEHYDROGENASEon 06-16 LACTATE DEHYDROGENASE (U/L) IN SER/PLAS BY LAC->PYR RXN 136 U/L Low 140-271 [facility] Comment on above: Performed By: #### L [id number] ####[facility] ([facility])[address] [place] [address] RETICULOCYTE PANELon 025 HEMOGLOBIN (PG) IN RETICULOCYTES 36.6 pg High 28.0-36.0 [facility] Comment on above: Performed By: #### L [id number] ####[facility] ([facility] [place])[address] [place] [address] IMMATURE RETICULOCYTE FRACTION (%) 34.0 % High 2-16 [facility] Comment on above: Performed By: #### L [id number] ####[facility] ([facility])[address] [place] [address] RETICULOCYTES (10*6/UL) IN BLOOD 0.2965 10*6/uL High 0.0250-0.1 000 [facility] Comment on above: Performed By: #### L [id number] ####[facility] ([facility] [place])[address] [place] [address] Reticulocytes/100 RBC (Bld) 9.69 % High 0.50-1.80 [facility] Comment on above: Performed By: #### L [id number] ####[facility])[address] [place] [address] 30on 07-04-2024 30 Normal [facility] 30 Normal [facility] AFP TUMOR MARKERon 5 ALPHA FETOPROTEIN TUMOR MARKER 5 ng/mL Normal 0-9 [facility] Comment on above: Result Comment: INTE RPRETIVE INFORMATION: Alpha Fetoprotein Tumor MarkerThe Brett Otisco Access DxI AFP method is used. Resultsobtained with different assay methods or kits cannot be usedinterchangeably. AFP is a valuable aid in the management ofnonseminomatous testicular cancer patients when used inconjunction with information available from the clinicalevaluation and other diagnostic procedures. Increased AFPconcentrations have also been observed in ataxia telangiectasia,hereditary tyrosinemia, primary hepatocellular carcinoma,teratocarcinoma, gastrointestinal tract cancers with and withoutliver metastases, and in benign hepatic conditions such as acuteviral hepatitis, chronic active hepatitis, and cirrhosis. Theresult cannot be interpreted as absolute evidence of the presenceor absence of malignant disease. The result is not interpretableas a tumor marker in females.Access complete set of age- and/or gender-specific referenceintervals for this test in the [facility] Test Directory(Yeelion).Performed By: [id number] [place], [place] [address]Jpnstsobmc Director: Issa Segura MD, PhDCLIA Number: [id number] Performed By: #### L [id number] ####[facility] ([facility])[address] [place] [address] BASIC METABOLIC PANELon 06-16 Anion gap [Moles/Vol] 8 mmol/L Normal 7-20 [facility] Comment on above: Performed By: #### L [id number] ####[facility])[address] [place] [address] Calcium [Mass/Vol] 7.7 mg/dL Low 8.6-10.3 [facility] Comment on above: Performed By: #### L [id number] ####[facility] ([facility])[address] [place] [address] Chloride [Moles/Vol] 104 mmol/L Normal 98-107 [facility] Comment on above: Performed By: #### L [id number] ####[facility] ([facility] [place] [address] CO2 [Moles/Vol] 24 mmol/L Normal 21-31 [facility] Comment on above: Performed By: #### L [id number] ####[facility] ([facility] [place])[address] [place] [address] Creatinine [Mass/Vol] 0.76 mg/dL Normal 0.60-1.20 [facility] Comment on above: Performed By: #### L [id number] ####[facility] ([facility] [place])[address] [place] [address] GLOMERULAR FILTRATION RATE ML/MIN/1.73 SQ M.PREDICTED 78.7 mL/min/1.73m*2 Normal >60.0 [facility] Comment on above: Result Comment: [facility]???s estimated glomerular filtration rate (eGFR) will no longer include consideration of race in its calculation. The National Kidney Foundation???s eGFR Task Force developed new recommendations for the estimation of the glomerular filtration rate in the [place] They recommend immediate implementation of the new equation refit without the race variable in all laboratories because the calculation does not include race. In addition to not including race in the calculation and reporting, it included diversity in its development, and has acceptable performance characteristics and potential consequences that do not disproportionately affect any one group of individuals. Performed By: #### L [id number] ####[facility] ([facility] [place] [address] Glucose [Mass/Vol] 106 mg/dL High 70-100 [facility] Comment on above: Performed By: #### L [id number] ####[facility] ([facility] [place] [address] Potassium [Moles/Vol] 4.0 mmol/L Normal 3.5-5.1 [facility] Comment on above: Performed By: #### L [id number] ####[facility] ([facility] [place] [address] Sodium [Moles/Vol] 132 mmol/L Low 136-145 [facility] Comment on above: Performed By: #### L [id number] ####[facility] ([facility])[address] [place] [address] Urea nitrogen [Mass/Vol] 16 mg/dL Normal 7-25 [facility] Comment on above: Performed By: #### L [id number] ####[facility] ([facility] [place])[address] [place] [address] UREA NITROGEN/CREATININ E (MASS RATIO) IN SER/PLAS 21.1 Normal [facility] Comment on above: Performed By: #### L [id number] ####[facility] ([facility] [place])[address] [place] [address] BLOOD CULTUREon 07-04-2024 Amoxicillin+Clavul anate [Susc] <=4/2 Susceptible [facility] Comment on above: Performed By: #### L [id number] ####[facility] ([facility] [place])[address] [place] [address] Ampicillin [Susc] <=4 Susceptible [facility] Comment on above: Performed By: #### L [id number] ####[facility] ([facility] [place])[address] [place] [address] Ampicillin+Sulbact am [Susc] 2/1 Susceptible [facility] Comment on above: Performed By: #### L [id number] ####[facility] ([facility] [place])[address] [place] [address] Bacteria identified Cx Nom (Bld) No growth at 5 days Normal [facility] Comment on above: Order Comment: From a different site than #1. Performed By: #### L [id number] ####[facility] ([facility] [place])[address] [place] [address] Beta lactamase.extended spectrum [Susc] Negative Invalid Interpretation Code [facility] Comment on above: Performed By: #### L [id number] ####[facility] ([facility])[address] [place] [address] ceFAZolin [Susc] Susceptible [facility] Comment on above: Performed By: #### L [id number] ####[facility] ([facility] [place])[address] [place] [place] [address] cefTRIAXone [Susc] <=1 Susceptible [facility] Comment on above: Performed By: #### L [id number] ####[facility] ([facility])[address] [place] [address] Ciprofloxacin [Susc] <=0.25 Susceptible [facility] Comment on above: Performed By: #### L [id number] ####[facility] ([facility] [place])[address] [place] [address] Gentamicin [Susc] <=2 Susceptible [facility] Comment on above: Performed By: #### L [id number] ####[facility] ([facility] [place])[address] [place] [address] Tobramycin [Susc] <=2 Susceptible [facility] Comment on above: Performed By: #### L [id number] ####[facility] ([facility])[address] [place] [address] Trimethoprim+Sulfa methoxazole [Susc] <=0.5/9.5 Susceptible [facility] Comment on above: Performed By: #### L [id number] ####[facility] ([facility] [place])[address] [place] [address] BLOOD CULTURE IDENTIFICATION PCR PANEL, AEROBICon 07-04-2024 ACINETOBACTER CALCOACETICUS-MANJIT ANNII COMPLEX DNA PCR Not detected Normal Not Detected [facility] Comment on above: Order Comment: The B ioFire BCID2 is a multiplexed nucleic acid test intended for simultaneous qualitative detection and identification of multiple bacterial and yeast nucleic acids and selected genetic determinants associated with antimicrobial resistance.Note: Antimicrobial resistance can occur via multiple mechanisms. A Not Detected result for antimicrobial resistance gene(s) does not indicate antimicrobial susceptibility. Subculturing is required for species identification and susceptiblity testing of isolates. Performed By: #### L [id number] ####[facility] ([facility] [place])[address] [place] [address] BACTEROIDES FRAGILIS DNA BY PCR Not detected Normal Not Detected [facility] Comment on above: Order Comment: The B ioFire BCID2 is a multiplexed nucleic acid test intended for simultaneous qualitative detection and identification of multiple bacterial and yeast nucleic acids and selected genetic determinants associated with antimicrobial resistance.Note: Antimicrobial resistance can occur via multiple mechanisms. A Not Detected result for antimicrobial resistance gene(s) does not indicate antimicrobial susceptibility. Subculturing is required for species identification and susceptiblity testing of isolates. Performed By: #### L [id number] ####[facility] ([facility])[address] [place] [place] [address] EMERALD ALBICANS DNA BY PCR Not detected Normal Not Detected [facility] Comment on above: Order Comment: The B ioFire BCID2 is a multiplexed nucleic acid test intended for simultaneous qualitative detection and identification of multiple bacterial and yeast nucleic acids and selected genetic determinants associated with antimicrobial resistance.Note: Antimicrobial resistance can occur via multiple mechanisms. A Not Detected result for antimicrobial resistance gene(s) does not indicate antimicrobial susceptibility. Subculturing is required for species identification and susceptiblity testing of isolates. Performed By: #### L [id number] ####[facility] ([facility] [place] [address] EMERALD AURIS DNA BY PCR Not detected Normal Not Detected [facility] Comment on above: Order Comment: The B ioFire BCID2 is a multiplexed nucleic acid test intended for simultaneous qualitative detection and identification of multiple bacterial and yeast nucleic acids and selected genetic determinants associated with antimicrobial resistance.Note: Antimicrobial resistance can occur via multiple mechanisms. A Not Detected result for antimicrobial resistance gene(s) does not indicate antimicrobial susceptibility. Subculturing is required for species identification and susceptiblity testing of isolates. Performed By: #### L [id number] ####[facility] ([facility] [place] [address] EMERALD GLABRATA DNA BY PCR Not detected Normal Not Detected [facility] Comment on above: Order Comment: The B ioFire BCID2 is a multiplexed nucleic acid test intended for simultaneous qualitative detection and identification of multiple bacterial and yeast nucleic acids and selected genetic determinants associated with antimicrobial resistance.Note: Antimicrobial resistance can occur via multiple mechanisms. A Not Detected result for antimicrobial resistance gene(s) does not indicate antimicrobial susceptibility. Subculturing is required for species identification and susceptiblity testing of isolates. Performed By: #### L [id number] ####[facility] ([facility] [place] [address] EMERALD KRUSEI DNA BY PCR Not detected Normal Not Detected [facility] Comment on above: Order Comment: The B ioFire BCID2 is a multiplexed nucleic acid test intended for simultaneous qualitative detection and identification of multiple bacterial and yeast nucleic acids and selected genetic determinants associated with antimicrobial resistance.Note: Antimicrobial resistance can occur via multiple mechanisms. A Not Detected result for antimicrobial resistance gene(s) does not indicate antimicrobial susceptibility. Subculturing is required for species identification and susceptiblity testing of isolates. Performed By: #### L [id number] ####[facility] ([facility])[address] [place] [address] EMERALD PARAPSILOSIS DNA BY PCR Not detected Normal Not Detected [facility] Comment on above: Order Comment: The B ioFire BCID2 is a multiplexed nucleic acid test intended for simultaneous qualitative detection and identification of multiple bacterial and yeast nucleic acids and selected genetic determinants associated with antimicrobial resistance.Note: Antimicrobial resistance can occur via multiple mechanisms. A Not Detected result for antimicrobial resistance gene(s) does not indicate antimicrobial susceptibility. Subculturing is required for species identification and susceptiblity testing of isolates. Performed By: #### L [id number] ####[facility] ([facility])[address] [place] [address] EMERALD TROPICALIS DNA BY PCR Not detected Normal Not Detected [facility] Comment on above: Order Comment: The B ioFire BCID2 is a multiplexed nucleic acid test intended for simultaneous qualitative detection and identification of multiple bacterial and yeast nucleic acids and selected genetic determinants associated with antimicrobial resistance.Note: Antimicrobial resistance can occur via multiple mechanisms. A Not Detected result for antimicrobial resistance gene(s) does not indicate antimicrobial susceptibility. Subculturing is required for species identification and susceptiblity testing of isolates. Performed By: #### L [id number] ####[facility] ([facility])[address] [place] [address] CRYPTOCOCCUS NEOFORMANS/GATTII DNA BY PCR Not detected Normal Not Detected [facility] Comment on above: Order Comment: The B PickUpPalFire BCID2 is a multiplexed nucleic acid test intended for simultaneous qualitative detection and identification of multiple bacterial and yeast nucleic acids and selected genetic determinants associated with antimicrobial resistance.Note: Antimicrobial resistance can occur via multiple mechanisms. A Not Detected result for antimicrobial resistance gene(s) does not indicate antimicrobial susceptibility. Subculturing is required for species identification and susceptiblity testing of isolates. Performed By: #### L [id number] ####[facility] ([facility])[address] [place] [address] CTX-M GENE BY PCR Not detected Normal Not Detected [facility] Comment on above: Order Comment: The B PickUpPalFire BCID2 is a multiplexed nucleic acid test intended for simultaneous qualitative detection and identification of multiple bacterial and yeast nucleic acids and selected genetic determinants associated with antimicrobial resistance.Note: Antimicrobial resistance can occur via multiple mechanisms. A Not Detected result for antimicrobial resistance gene(s) does not indicate antimicrobial susceptibility. Subculturing is required for species identification and susceptiblity testing of isolates. Performed By: #### L [id number] ####[facility] ([facility])[address] [place] [address] ENTEROBACTER CLOACAE COMPLEX DNA BY PCR Not detected Normal Not Detected [facility] Comment on above: Order Comment: The B PickUpPalFire BCID2 is a multiplexed nucleic acid test intended for simultaneous qualitative detection and identification of multiple bacterial and yeast nucleic acids and selected genetic determinants associated with antimicrobial resistance.Note: Antimicrobial resistance can occur via multiple mechanisms. A Not Detected result for antimicrobial resistance gene(s) does not indicate antimicrobial susceptibility. Subculturing is required for species identification and susceptiblity testing of isolates. Performed By: #### L [id number] ####[facility] ([facility])[address] [place] [address] ENTEROBACTERALES DNA BY PCR Detected Critically abnormal Not Detected [facility] Comment on above: Order Comment: The B PickUpPalFire BCID2 is a multiplexed nucleic acid test intended for simultaneous qualitative detection and identification of multiple bacterial and yeast nucleic acids and selected genetic determinants associated with antimicrobial resistance.Note: Antimicrobial resistance can occur via multiple mechanisms. A Not Detected result for antimicrobial resistance gene(s) does not indicate antimicrobial susceptibility. Subculturing is required for species identification and susceptiblity testing of isolates. Performed By: #### L [id number] ####[facility] ([facility])[address] [place] [address] ENTEROCOCCUS FAECALIS DNA BY PCR Not detected Normal Not Detected [facility] Comment on above: Order Comment: The B ioFire BCID2 is a multiplexed nucleic acid test intended for simultaneous qualitative detection and identification of multiple bacterial and yeast nucleic acids and selected genetic determinants associated with antimicrobial resistance.Note: Antimicrobial resistance can occur via multiple mechanisms. A Not Detected result for antimicrobial resistance gene(s) does not indicate antimicrobial susceptibility. Subculturing is required for species identification and susceptiblity testing of isolates. Performed By: #### L [id number] ####[facility] ([facility])[address] [place] [address] ENTEROCOCCUS FAECIUM DNA BY PCR Not detected Normal Not Detected [facility] Comment on above: Order Comment: The B ioFire BCID2 is a multiplexed nucleic acid test intended for simultaneous qualitative detection and identification of multiple bacterial and yeast nucleic acids and selected genetic determinants associated with antimicrobial resistance.Note: Antimicrobial resistance can occur via multiple mechanisms. A Not Detected result for antimicrobial resistance gene(s) does not indicate antimicrobial susceptibility. Subculturing is required for species identification and susceptiblity testing of isolates. Performed By: #### L [id number] ####[facility] ([facility])[address] [place] [address] ESCHERICHIA COLI DNA BY PCR Detected Critically abnormal Not Detected [facility] Comment on above: Order Comment: The B ioFire BCID2 is a multiplexed nucleic acid test intended for simultaneous qualitative detection and identification of multiple bacterial and yeast nucleic acids and selected genetic determinants associated with antimicrobial resistance.Note: Antimicrobial resistance can occur via multiple mechanisms. A Not Detected result for antimicrobial resistance gene(s) does not indicate antimicrobial susceptibility. Subculturing is required for species identification and susceptiblity testing of isolates. Performed By: #### L [id number] ####[facility] ([facility])[address] [place] [address] HAEMOPHILUS INFLUENZAE DNA BY PCR Not detected Normal Not Detected [facility] Comment on above: Order Comment: The B PickUpPalFire BCID2 is a multiplexed nucleic acid test intended for simultaneous qualitative detection and identification of multiple bacterial and yeast nucleic acids and selected genetic determinants associated with antimicrobial resistance.Note: Antimicrobial resistance can occur via multiple mechanisms. A Not Detected result for antimicrobial resistance gene(s) does not indicate antimicrobial susceptibility. Subculturing is required for species identification and susceptiblity testing of isolates. Performed By: #### L [id number] ####[facility] ([facility])[address] [place] [address] IMP GENE BY PCR Not detected Normal Not Detected [facility] Comment on above: Order Comment: The B PickUpPalFire BCID2 is a multiplexed nucleic acid test intended for simultaneous qualitative detection and identification of multiple bacterial and yeast nucleic acids and selected genetic determinants associated with antimicrobial resistance.Note: Antimicrobial resistance can occur via multiple mechanisms. A Not Detected result for antimicrobial resistance gene(s) does not indicate antimicrobial susceptibility. Subculturing is required for species identification and susceptiblity testing of isolates. Performed By: #### L [id number] ####[facility] ([facility])[address] [place] [address] KLEBSIELLA AEROGENES DNA BY PCR Not detected Normal Not Detected [facility] Comment on above: Order Comment: The B PickUpPalFire BCID2 is a multiplexed nucleic acid test intended for simultaneous qualitative detection and identification of multiple bacterial and yeast nucleic acids and selected genetic determinants associated with antimicrobial resistance.Note: Antimicrobial resistance can occur via multiple mechanisms. A Not Detected result for antimicrobial resistance gene(s) does not indicate antimicrobial susceptibility. Subculturing is required for species identification and susceptiblity testing of isolates. Performed By: #### L [id number] ####[facility] [place] [address] KLEBSIELLA OXYTOCA DNA BY PCR Not detected Normal Not Detected [facility] Comment on above: Order Comment: The B PickUpPalFire BCID2 is a multiplexed nucleic acid test intended for simultaneous qualitative detection and identification of multiple bacterial and yeast nucleic acids and selected genetic determinants associated with antimicrobial resistance.Note: Antimicrobial resistance can occur via multiple mechanisms. A Not Detected result for antimicrobial resistance gene(s) does not indicate antimicrobial susceptibility. Subculturing is required for species identification and susceptiblity testing of isolates. Performed By: #### L [id number] ####[facility] ([facility])[address] [place] [address] KLEBSIELLA PNEUMONIAE GROUP DNA BY PCR Not detected Normal Not Detected [facility] Comment on above: Order Comment: The B ioFire BCID2 is a multiplexed nucleic acid test intended for simultaneous qualitative detection and identification of multiple bacterial and yeast nucleic acids and selected genetic determinants associated with antimicrobial resistance.Note: Antimicrobial resistance can occur via multiple mechanisms. A Not Detected result for antimicrobial resistance gene(s) does not indicate antimicrobial susceptibility. Subculturing is required for species identification and susceptiblity testing of isolates. Performed By: #### L [id number] ####[facility] ([facility])[address] [place] [address] KPC GENE BY PCR Not detected Normal Not Detected [facility] Comment on above: Order Comment: The B ioFire BCID2 is a multiplexed nucleic acid test intended for simultaneous qualitative detection and identification of multiple bacterial and yeast nucleic acids and selected genetic determinants associated with antimicrobial resistance.Note: Antimicrobial resistance can occur via multiple mechanisms. A Not Detected result for antimicrobial resistance gene(s) does not indicate antimicrobial susceptibility. Subculturing is required for species identification and susceptiblity testing of isolates. Performed By: #### L [id number] ####[facility] ([facility])[address] [place] [address] LISTERIA MONOCYTOGENES DNA BY PCR Not detected Normal Not Detected [facility] Comment on above: Order Comment: The B PickUpPalFire BCID2 is a multiplexed nucleic acid test intended for simultaneous qualitative detection and identification of multiple bacterial and yeast nucleic acids and selected genetic determinants associated with antimicrobial resistance.Note: Antimicrobial resistance can occur via multiple mechanisms. A Not Detected result for antimicrobial resistance gene(s) does not indicate antimicrobial susceptibility. Subculturing is required for species identification and susceptiblity testing of isolates. Performed By: #### L [id number] ####[facility] ([facility])[address] [place] [address] MCR-1 GENE BY PCR Not detected Normal Not Detected [facility] Comment on above: Order Comment: The B PickUpPalFire BCID2 is a multiplexed nucleic acid test intended for simultaneous qualitative detection and identification of multiple bacterial and yeast nucleic acids and selected genetic determinants associated with antimicrobial resistance.Note: Antimicrobial resistance can occur via multiple mechanisms. A Not Detected result for antimicrobial resistance gene(s) does not indicate antimicrobial susceptibility. Subculturing is required for species identification and susceptiblity testing of isolates. Performed By: #### L [id number] ####[facility] ([facility])[address] [place] [address] NDM GENE BY PCR Not detected Normal Not Detected [facility] Comment on above: Order Comment: The B PickUpPalFire BCID2 is a multiplexed nucleic acid test intended for simultaneous qualitative detection and identification of multiple bacterial and yeast nucleic acids and selected genetic determinants associated with antimicrobial resistance.Note: Antimicrobial resistance can occur via multiple mechanisms. A Not Detected result for antimicrobial resistance gene(s) does not indicate antimicrobial susceptibility. Subculturing is required for species identification and susceptiblity testing of isolates. Performed By: #### L [id number] ####[facility] ([facility])[address] [place] [address] NEISSERIA MENINGITIDIS DNA BY PCR Not detected Normal Not Detected [facility] Comment on above: Order Comment: The BeCouplyFire BCID2 is a multiplexed nucleic acid test intended for simultaneous qualitative detection and identification of multiple bacterial and yeast nucleic acids and selected genetic determinants associated with antimicrobial resistance.Note: Antimicrobial resistance can occur via multiple mechanisms. A Not Detected result for antimicrobial resistance gene(s) does not indicate antimicrobial susceptibility. Subculturing is required for species identification and susceptiblity testing of isolates. Performed By: #### L [id number] ####[facility])[address] [place] [address] [id number] GENE BY PCR Not detected Normal Not Detected [facility] Comment on above: Order Comment: The [employer] BCID2 is a multiplexed nucleic acid test intended for simultaneous qualitative detection and identification of multiple bacterial and yeast nucleic acids and selected genetic determinants associated with antimicrobial resistance.Note: Antimicrobial resistance can occur via multiple mechanisms. A Not Detected result for antimicrobial resistance gene(s) does not indicate antimicrobial susceptibility. Subculturing is required for species identification and susceptiblity testing of isolates. Performed By: #### L [id number] ####[facility] ([facility])[address] [place] [address] PROTEUS SPP. DNA BY PCR Not detected Normal Not Detected [facility] Comment on above: Order Comment: The B ioFire BCID2 is a multiplexed nucleic acid test intended for simultaneous qualitative detection and identification of multiple bacterial and yeast nucleic acids and selected genetic determinants associated with antimicrobial resistance.Note: Antimicrobial resistance can occur via multiple mechanisms. A Not Detected result for antimicrobial resistance gene(s) does not indicate antimicrobial susceptibility. Subculturing is required for species identification and susceptiblity testing of isolates. Performed By: #### L [id number] ####[facility] [place] [address] PSEUDOMONAS AERUGINOSA DNA BY PCR Not detected Normal Not Detected [facility] Comment on above: Order Comment: The B PickUpPalFire BCID2 is a multiplexed nucleic acid test intended for simultaneous qualitative detection and identification of multiple bacterial and yeast nucleic acids and selected genetic determinants associated with antimicrobial resistance.Note: Antimicrobial resistance can occur via multiple mechanisms. A Not Detected result for antimicrobial resistance gene(s) does not indicate antimicrobial susceptibility. Subculturing is required for species identification and susceptiblity testing of isolates. Performed By: #### L [id number] ####[facility] [place] [address] SALMONELLA SPP. DNA BY PCR Not detected Normal Not Detected [facility] Comment on above: Order Comment: The B PickUpPalFire BCID2 is a multiplexed nucleic acid test intended for simultaneous qualitative detection and identification of multiple bacterial and yeast nucleic acids and selected genetic determinants associated with antimicrobial resistance.Note: Antimicrobial resistance can occur via multiple mechanisms. A Not Detected result for antimicrobial resistance gene(s) does not indicate antimicrobial susceptibility. Subculturing is required for species identification and susceptiblity testing of isolates. Performed By: #### L [id number] ####[facility] [place] [address] SERRATIA MARCESCENS DNA BY PCR Not detected Normal Not Detected [facility] Comment on above: Order Comment: The B PickUpPalFire BCID2 is a multiplexed nucleic acid test intended for simultaneous qualitative detection and identification of multiple bacterial and yeast nucleic acids and selected genetic determinants associated with antimicrobial resistance.Note: Antimicrobial resistance can occur via multiple mechanisms. A Not Detected result for antimicrobial resistance gene(s) does not indicate antimicrobial susceptibility. Subculturing is required for species identification and susceptiblity testing of isolates. Performed By: #### L [id number] ####[facility] ([facility])[address] [place] [address] STAPHYLOCOCCUS AUREUS DNA BY PCR Not detected Normal Not Detected [facility] Comment on above: Order Comment: The B ioFire BCID2 is a multiplexed nucleic acid test intended for simultaneous qualitative detection and identification of multiple bacterial and yeast nucleic acids and selected genetic determinants associated with antimicrobial resistance.Note: Antimicrobial resistance can occur via multiple mechanisms. A Not Detected result for antimicrobial resistance gene(s) does not indicate antimicrobial susceptibility. Subculturing is required for species identification and susceptiblity testing of isolates. Performed By: #### L [id number] ####[facility] [place] [address] STAPHYLOCOCCUS EPIDERMIDIS DNA BY PCR Not detected Normal Not Detected [facility] Comment on above: Order Comment: The B ioFire BCID2 is a multiplexed nucleic acid test intended for simultaneous qualitative detection and identification of multiple bacterial and yeast nucleic acids and selected genetic determinants associated with antimicrobial resistance.Note: Antimicrobial resistance can occur via multiple mechanisms. A Not Detected result for antimicrobial resistance gene(s) does not indicate antimicrobial susceptibility. Subculturing is required for species identification and susceptiblity testing of isolates. Performed By: #### L [id number] ####[facility] [place] [address] STAPHYLOCOCCUS LUGDUNENSIS DNA BY PCR Not detected Normal Not Detected [facility] Comment on above: Order Comment: The B ioFire BCID2 is a multiplexed nucleic acid test intended for simultaneous qualitative detection and identification of multiple bacterial and yeast nucleic acids and selected genetic determinants associated with antimicrobial resistance.Note: Antimicrobial resistance can occur via multiple mechanisms. A Not Detected result for antimicrobial resistance gene(s) does not indicate antimicrobial susceptibility. Subculturing is required for species identification and susceptiblity testing of isolates. Performed By: #### L [id number] ####[facility] [place] [address] STAPHYLOCOCCUS SPP. DNA BY PCR Not detected Normal Not Detected [facility] Comment on above: Order Comment: The B ioFire BCID2 is a multiplexed nucleic acid test intended for simultaneous qualitative detection and identification of multiple bacterial and yeast nucleic acids and selected genetic determinants associated with antimicrobial resistance.Note: Antimicrobial resistance can occur via multiple mechanisms. A Not Detected result for antimicrobial resistance gene(s) does not indicate antimicrobial susceptibility. Subculturing is required for species identification and susceptiblity testing of isolates. Performed By: #### L [id number] ####[facility] ([facility] [place] [address] STENOTROPHOMONAS MALTOPHILIA DNA BY PCR Not detected Normal Not Detected [facility] Comment on above: Order Comment: The B ioFire BCID2 is a multiplexed nucleic acid test intended for simultaneous qualitative detection and identification of multiple bacterial and yeast nucleic acids and selected genetic determinants associated with antimicrobial resistance.Note: Antimicrobial resistance can occur via multiple mechanisms. A Not Detected result for antimicrobial resistance gene(s) does not indicate antimicrobial susceptibility. Subculturing is required for species identification and susceptiblity testing of isolates. Performed By: #### L [id number] ####[facility] ([facility] [place] [address] STREPTOCOCCUS AGALACTIAE (GROUP B) DNA BY PCR Not detected Normal Not Detected [facility] Comment on above: Order Comment: The B ioFire BCID2 is a multiplexed nucleic acid test intended for simultaneous qualitative detection and identification of multiple bacterial and yeast nucleic acids and selected genetic determinants associated with antimicrobial resistance.Note: Antimicrobial resistance can occur via multiple mechanisms. A Not Detected result for antimicrobial resistance gene(s) does not indicate antimicrobial susceptibility. Subculturing is required for species identification and susceptiblity testing of isolates. Performed By: #### L [id number] ####[facility] ([facility] [place] [address] STREPTOCOCCUS PNEUMONIAE DNA BY PCR Not detected Normal Not Detected [facility] Comment on above: Order Comment: The B ioFire BCID2 is a multiplexed nucleic acid test intended for simultaneous qualitative detection and identification of multiple bacterial and yeast nucleic acids and selected genetic determinants associated with antimicrobial resistance.Note: Antimicrobial resistance can occur via multiple mechanisms. A Not Detected result for antimicrobial resistance gene(s) does not indicate antimicrobial susceptibility. Subculturing is required for species identification and susceptiblity testing of isolates. Performed By: #### L [id number] ####[facility] ([facility] [place] [address] STREPTOCOCCUS PYOGENES (GROUP A) DNA BY PCR Not detected Normal Not Detected [facility] Comment on above: Order Comment: The B ioFire BCID2 is a multiplexed nucleic acid test intended for simultaneous qualitative detection and identification of multiple bacterial and yeast nucleic acids and selected genetic determinants associated with antimicrobial resistance.Note: Antimicrobial resistance can occur via multiple mechanisms. A Not Detected result for antimicrobial resistance gene(s) does not indicate antimicrobial susceptibility. Subculturing is required for species identification and susceptiblity testing of isolates. Performed By: #### L [id number] ####[facility] ([facility] [place] [address] STREPTOCOCCUS SPP. DNA BY PCR Not detected Normal Not Detected [facility] Comment on above: Order Comment: The B ioFire BCID2 is a multiplexed nucleic acid test intended for simultaneous qualitative detection and identification of multiple bacterial and yeast nucleic acids and selected genetic determinants associated with antimicrobial resistance.Note: Antimicrobial resistance can occur via multiple mechanisms. A Not Detected result for antimicrobial resistance gene(s) does not indicate antimicrobial susceptibility. Subculturing is required for species identification and susceptiblity testing of isolates. Performed By: #### L [id number] ####[facility] ([facility])[address] [place] [address] VIM GENE BY PCR Not detected Normal Not Detected [facility] Comment on above: Order Comment: The B ioFire BCID2 is a multiplexed nucleic acid test intended for simultaneous qualitative detection and identification of multiple bacterial and yeast nucleic acids and selected genetic determinants associated with antimicrobial resistance.Note: Antimicrobial resistance can occur via multiple mechanisms. A Not Detected result for antimicrobial resistance gene(s) does not indicate antimicrobial susceptibility. Subculturing is required for species identification and susceptiblity testing of isolates. Performed By: #### L [id number] ####[facility] ([facility])[address] [place] [address] CANCER ANTIGEN 19-9on 2024 CANCER AG 19-9 (U/ML) IN SER/PLAS <2 Normal <=35 [facility] Comment on above: Result Comment: INTE RPRETIVE INFORMATION: Cancer Antigen-GI (CA 19-9)This test uses Jami CA 19-9 electrochemiluminescent immunoassay.Results obtained with different test methods or kits cannot beused interchangeably. CA 19-9 value is useful in monitoringpancreatic, hepatobiliary, gastric, hepatocellular, and colorectalcancer. CA 19-9 value, regardless of level, should not beinterpreted as absolute evidence of the presence or absence ofmalignant disease.Performed By: [id number] [place], [place] [address]Zphhpruzym Director: Issa Segura MD, PhDCLIA Number: [id number] Performed By: #### L [id number] ####[facility] (BEAKER)[address] [place] [address] CBC WITH AUTO DIFFERENTIALon 07-04-2024 Erythrocyte distribution width (RBC) [Ratio] 23.9 % High 11.5-15.0 [facility] Comment on above: Performed By: #### L [id number] ####[facility] ([facility] [place] [address] ERYTHROCYTE MEAN CORPUSCULAR HEMOGLOBIN CONCENTRATION (G/DL) BY AUTOMATED 32.1 g/dL Normal 32.0-35.0 [facility] Comment on above: Performed By: #### L [id number] ####[facility] [place] [address] Hematocrit (Bld) [Volume fraction] 27.7 % Low 36.0-48.0 [facility] Comment on above: Performed By: #### L [id number] ####[facility] ([facility] [place] [address] Hemoglobin (Bld) [Mass/Vol] 8.9 g/dL Low 12.0-15.0 [facility] Comment on above: Performed By: #### L [id number] ####[facility] ([facility] [place] [address] MCH (RBC) [Entitic mass] 28.3 pg Normal 27.0-33.0 [facility] Comment on above: Performed By: #### L [id number] ####[facility] [place] [address] MCV (RBC) [Entitic vol] 87.9 fL Normal 82.0-98.0 [facility] Comment on above: Performed By: #### L [id number] ####[facility] [place] [address] NRBC (PER 100 WBCS) BY AUTOMATED COUNT 0.0 % Normal 0 [facility] Comment on above: Performed By: #### L [id number] ####[facility] ([facility] [place])[address] [place] [address] PLATELETS (10*3/UL) IN BLOOD AUTOMATED COUNT 281 10*3/uL Normal 150-400 [facility] Comment on above: Performed By: #### L [id number] ####[facility] ([facility] [address] RBC (Bld) [#/Vol] 3.15 10*6/uL Low 3.80-5.00 [facility] Comment on above: Performed By: #### L [id number] ####[facility] ([facility])[place] [address] WBC (Bld) [#/Vol] 20.22 10*3/uL High 4.00-10.60 [facility] Comment on above: Performed By: #### L [id number] ####[facility] [place] [address] CEAon 07-04-2024 CARCINOEMBRYONIC AG (NG/ML) IN SER/PLAS 2.2 ng/mL Normal 0-3 [facility] Comment on above: Performed By: #### L [id number] ####[facility] ([facility])[address] [place] [address] CONSULTon 07-04-2024 CONSULT Normal [facility] FERRITINon 07-04-2024 FERRITIN (NG/ML) IN SER/PLAS 502.0 ng/mL High 11.0-307.0 [facility] Comment on above: Performed By: #### L [id number] ####[facility] ([facility])[address] [place] [address] FOLATEon 07-04-2024 FOLATE (NG/ML) IN SER/PLAS 10.35 ng/mL Normal 6.6-1000 [facility] Comment on above: Performed By: #### L [id number] ####[facility])[address] [place] [address] HEPATIC FUNCTION PANELon Albumin [Mass/Vol] 2.4 g/dL Low 3.5-5.7 [facility] Comment on above: Performed By: #### L [id number] ####[facility])[address] [place] [address] ALP [Catalytic activity/Vol] 800 U/L High 34-104 [facility] Comment on above: Performed By: #### L [id number] ####[facility] [place] [address] ALT [Catalytic activity/Vol] 154 U/L High 7-52 [facility] Comment on above: Performed By: #### L [id number] ####[facility])[address] [place] [address] AST [Catalytic activity/Vol] 145 U/L High 13-39 [facility] Comment on above: Performed By: #### L [id number] ####[facility] [place] [address] Bilirubin [Mass/Vol] 8.8 mg/dL High 0.3-1.0 [facility] Comment on above: Performed By: #### L [id number] ####[facility])[address] [place] [address] Magnesium [Mass/Vol] 5.1 mg/dL High 0-0.2 [facility] Comment on above: Performed By: #### L [id number] ####[facility])[address] [place] [address] Protein [Mass/Vol] 4.3 g/dL Low 6.0-8.3 [facility] Comment on above: Performed By: #### L [id number] ####[facility])[address] [place] [address] IRON AND TIBCon 07-04-2024 IRON (UG/DL) IN SER/PLAS 84 ug/dL Normal 50-212 [facility] Comment on above: Performed By: #### L [id number] ####[facility])[address] [place] [address] IRON BINDING CAPACITY (UG/DL) IN SER/PLAS 188 ug/dL Low 250-450 [facility] Comment on above: Performed By: #### L [id number] ####[facility])[address] [place] [address] IRON BINDING CAPACITY.UNSATURAT ED (UG/DL) IN SER/PLAS 104.0 ug/dL Low 155.0-355. 0 [facility] Comment on above: Performed By: #### L [id number] ####[facility] [place])[address] [place] [address] IRON SATURATION (%) IN SER/PLAS 45 % Normal 20-50 [facility] Comment on above: Performed By: #### L [id number] ####[facility] [place] [address] LACTIC ACID WITH 4 HOUR REFL EXon 07-04-2024 LACTATE (MMOL/L) IN SER/PLAS 1.6 mmol/L Normal 0.5-2.2 [facility] Comment on above: Performed By: #### L [id number] ####[facility])[address] [place] [address] MAGNESIUMon 07-04-2024 Magnesium [Mass/Vol] 1.7 mg/dL Low 1.9-2.7 [facility] Comment on above: Performed By: #### L [id number] ####[facility] [place])[address] [place] [address] MANUAL DIFFERENTIALon 2024 BASOPHILS (10*3/UL) IN BLOOD BY CALCULATION 0.14 10*3/uL Normal 0.00-0.20 [facility] Comment on above: Performed By: #### L [id number] ####[facility] [place])[address] [place] [address] BASOPHILS/100 LEUKOCYTES IN BLOOD BY AUTOMATED COUNT 0.7 % Normal 0.0-1.0 [facility] Comment on above: Performed By: #### L [id number] ####[facility] [place])[address] [place] [address] EOSINOPHILS (10*3/UL) IN BLOOD BY CALCULATION 0.95 10*3/uL High 0.00-0.50 [facility] Comment on above: Performed By: #### L [id number] ####[facility] [place])[address] [place] [address] EOSINOPHILS/100 LEUKOCYTES IN BLOOD BY AUTOMATED COUNT 4.7 % Normal 0.0-6.0 [facility] Comment on above: Performed By: #### L [id number] ####[facility])[address] [place] [address] LYMPHOCYTES (10*3/UL) IN BLOOD BY CALCULATION 1.76 10*3/uL Normal 1.20-4.00 [facility] Comment on above: Performed By: #### L [id number] ####[facility])[address] [place] [address] LYMPHOCYTES/100 LEUKOCYTES IN BLOOD BY AUTOMATED COUNT 8.7 % Low 20.0-45.0 [facility] Comment on above: Performed By: #### L [id number] ####[facility] [place])[address] [place] [address] MONOCYTES (10*3/UL) IN BLOOD BY CALCUATION 0.26 10*3/uL Normal 0.10-1.00 [facility] Comment on above: Performed By: #### L [id number] ####[facility] ([facility])[address] [place] [address] MONOCYTES/100 LEUKOCYTES IN BLOOD BY AUTOMATED COUNT 1.3 % Low 5.0-12.0 [facility] Comment on above: Performed By: #### L [id number] ####[facility] ([facility] [place] [address] MYELOCYTES (10*3/UL) IN BLOOD BY CALCULATION 0.26 10*3/uL High 0.00 [facility] Comment on above: Performed By: #### L [id number] ####[facility])[address] [place] [address] MYELOCYTES/100 LEUKOCYTES IN BLOOD CELLAVISION 1.3 % High 0.0-0.0 [facility] Comment on above: Performed By: #### L [id number] ####[facility])[address] [place] [address] NEUTROPHILS (10*3/UL) IN BLOOD BY CALCULATION 16.8 10*3/uL High 1.6-7.6 [facility] Comment on above: Performed By: #### L [id number] ####[facility])[address] [place] [address] NEUTROPHILS/100 LEUKOCYTES IN BLOOD BY AUTOMATED COUNT 83.3 % High 40.0-72.0 [facility] Comment on above: Performed By: #### L [id number] ####[facility] [place] [address] PLASMA CELLS/100 LEUKOCYTES IN BLOOD 0 % Normal 0 [facility] Comment on above: Performed By: #### L [id number] ####[facility] ([facility])[address] [place] [address] PLATELETS GIANT PRESENCE IN BLOOD BY LIGHT MICROSCOPY Present Normal [facility] Comment on above: Performed By: #### L [id number] ####[facility] [place] [address] VARIANT LYMPHOCYTES (10*3/UL) IN BLOOD BY CALCULATION 0.00 10*3/uL Normal 0.00 [facility] Comment on above: Performed By: #### L [id number] ####[facility] [place] [address] VARIANT LYMPHOCYTES/100 LEUKOCYTES IN BLOOD CELLAVISION 0.0 % Normal 0.0-0.0 [facility] Comment on above: Performed By: #### L [id number] ####[facility] [place] [address] NURSNOTEon 07-04-2024 NURSNOTE Normal [facility] NURSNOTE Normal [facility] NURSNOTE RN notifed DR Cano about pt shaking/ feeling weak. RN took a new temp it was 100F and ordered lactate and BC. RN recheck the temp is now 100.2F RN told DR Diaz and RN was told to tell DR when its 100.4F Normal [facility] VITAMIN B12on 07-04-2024 Cobalamin (Vitamin B12) [Mass/Vol] 1533 pg/mL High 180-914 [facility] Comment on above: Result Comment: REFE RENCE RANGES:180-914 pg/mL Cthnaq692-924 pg/mL Indeterminate<145 pg/mL Deficient Performed By: #### L [id number] ####[facility] [place] [address] 30on 07-03-2024 30 The patient is Moder ately Stable - Low risk of patient condition declining or worsening The patient's goals for the shift include comfort The clinical goals for the shift include comfort, rest Normal [facility] 30 The patient is Moder ately Stable - Low risk of patient condition declining or worsening The patient's goals for the shift include comfort The clinical goals for the shift include comfort, rest Normal [facility] ANESon 07-03-2024 ANES Normal [facility] BASIC METABOLIC PANELon 06-15 Anion gap [Moles/Vol] 10 mmol/L Normal 7-20 [facility] Comment on above: Performed By: #### L [id number] ####[facility] ([facility])[address] [place] [address] Calcium [Mass/Vol] 7.6 mg/dL Low 8.6-10.3 [facility] Comment on above: Performed By: #### L [id number] ####[facility] ([facility] [place] [address] Chloride [Moles/Vol] 105 mmol/L Normal 98-107 [facility] Comment on above: Performed By: #### L [id number] ####[facility] [place] [address] CO2 [Moles/Vol] 21 mmol/L Normal 21-31 [facility] Comment on above: Performed By: #### L [id number] ####[facility] [place] [address] Creatinine [Mass/Vol] 0.72 mg/dL Normal 0.60-1.20 [facility] Comment on above: Performed By: #### L [id number] ####[facility] [place] [address] GLOMERULAR FILTRATION RATE ML/MIN/1.73 SQ M.PREDICTED 83.9 mL/min/1.73m*2 Normal >60.0 [facility] Comment on above: Result Comment: [facility]???s estimated glomerular filtration rate (eGFR) will no longer include consideration of race in its calculation. The [employer] Kid[employer] Foundation???s eGFR Task Force developed new recommendations for the estimation of the glomerular filtration rate in the [place] They recommend immediate implementation of the new equation refit without the race variable in all laboratories because the calculation does not include race. In addition to not including race in the calculation and reporting, it included diversity in its development, and has acceptable performance characteristics and potential consequences that do not disproportionately affect any one group of individuals. Performed By: #### L [id number] ####[facility] ([facility] [place] [address] Glucose [Mass/Vol] 128 mg/dL High 70-100 [facility] Comment on above: Performed By: #### L [id number] ####[facility] ([facility] [place] [address] Potassium [Moles/Vol] 3.2 mmol/L Low 3.5-5.1 [facility] Comment on above: Performed By: #### L [id number] ####[facility] [place] [address] Sodium [Moles/Vol] 133 mmol/L Low 136-145 [facility] Comment on above: Performed By: #### L [id number] ####[facility] [place] [address] Urea nitrogen [Mass/Vol] 20 mg/dL Normal 7-25 [facility] Comment on above: Performed By: #### L [id number] ####[facility] [place] [address] UREA NITROGEN/CREATININ E (MASS RATIO) IN SER/PLAS 27.8 Normal [facility] Comment on above: Performed By: #### L [id number] ####[facility] [place] [address] CBC WITH AUTO DIFFERENTIALon 07-03-2024 Erythrocyte distribution width (RBC) [Ratio] 23.9 % High 11.5-15.0 [facility] Comment on above: Performed By: #### L [id number] ####[facility] [place] [address] ERYTHROCYTE MEAN CORPUSCULAR HEMOGLOBIN CONCENTRATION (G/DL) BY AUTOMATED 32.7 g/dL Normal 32.0-35.0 [facility] Comment on above: Performed By: #### L [id number] ####[facility] [place] [address] Hematocrit (Bld) [Volume fraction] 27.2 % Low 36.0-48.0 [facility] Comment on above: Performed By: #### L [id number] ####[facility] [place] [address] Hemoglobin (Bld) [Mass/Vol] 8.9 g/dL Low 12.0-15.0 [facility] Comment on above: Performed By: #### L [id number] ####[facility] [place] [address] Performed By: #### L [id number] ####[facility] [place] [address] MCH (RBC) [Entitic mass] 27.7 pg Normal 27.0-33.0 [facility] Comment on above: Performed By: #### L [id number] ####[facility] [place], [place] [address] MCV (RBC) [Entitic vol] 84.7 fL Normal 82.0-98.0 [facility] Comment on above: Performed By: #### L [id number] ####[facility])[address] [place], [place] [address] NRBC (PER 100 WBCS) BY AUTOMATED COUNT 0.1 % High 0 [facility] Comment on above: Performed By: #### L [id number] ####[facility])[address] [place] [address] PLATELETS (10*3/UL) IN BLOOD AUTOMATED COUNT 266 10*3/uL Normal 150-400 [facility] Comment on above: Performed By: #### L [id number] ####[facility] [place] [address] RBC (Bld) [#/Vol] 3.21 10*6/uL Low 3.80-5.00 [facility] Comment on above: Performed By: #### L [id number] ####[facility] [place] [address] WBC (Bld) [#/Vol] 19.30 10*3/uL High 4.00-10.60 [facility] Comment on above: Performed By: #### L [id number] ####[facility] [place] [address] HEMOGLOBIN AND HEMATOCRIT, B LOODon 07-03-2024 Hematocrit (Bld) [Volume fraction] 27.3 % Low 36.0-48.0 [facility] Comment on above: Performed By: #### L [id number] ####[facility] [place] [address] HEPATIC FUNCTION PANELon Albumin [Mass/Vol] 2.4 g/dL Low 3.5-5.7 [facility] Comment on above: Performed By: #### L [id number] ####[facility] [place] [address] ALP [Catalytic activity/Vol] 746 U/L High 34-104 [facility] Comment on above: Performed By: #### L [id number] ####[facility] [place] [address] ALT [Catalytic activity/Vol] 168 U/L High 7-52 [facility] Comment on above: Performed By: #### L [id number] ####[facility] [place] [address] AST [Catalytic activity/Vol] 158 U/L High 13-39 [facility] Comment on above: Performed By: #### L [id number] ####[facility] [place] [address] Bilirubin [Mass/Vol] 9.5 mg/dL High 0.3-1.0 [facility] Comment on above: Performed By: #### L [id number] ####[facility] [place] [address] Magnesium [Mass/Vol] 5.7 mg/dL High 0-0.2 [facility] Comment on above: Performed By: #### L [id number] ####[facility] [place] [address] Protein [Mass/Vol] 4.2 g/dL Low 6.0-8.3 [facility] Comment on above: Performed By: #### L [id number] ####[facility] [place] [address] MAGNESIUMon 07-03-2024 Magnesium [Mass/Vol] 1.7 mg/dL Low 1.9-2.7 [facility] Comment on above: Performed By: #### L [id number] ####[facility] [place] [address] MANUAL DIFFERENTIALon 2024 ANISOCYTOSIS PRESENCE IN BLOOD BY LIGHT MICROSCOPY Marked Normal [facility] Comment on above: Performed By: #### L [id number] ####[facility] [facility] [place] [address] BASOPHILS (10*3/UL) IN BLOOD BY CALCULATION 0.00 10*3/uL Normal 0.00-0.20 [facility] Comment on above: Performed By: #### L [id number] ####[facility] [place] [address] BASOPHILS/100 LEUKOCYTES IN BLOOD BY AUTOMATED COUNT 0.0 % Normal 0.0-1.0 [facility] Comment on above: Performed By: #### L [id number] ####[facility] [place] [address] EOSINOPHILS (10*3/UL) IN BLOOD BY CALCULATION 0.14 10*3/uL Normal 0.00-0.50 [facility] Comment on above: Performed By: #### L [id number] ####[facility] [place] [address] EOSINOPHILS/100 LEUKOCYTES IN BLOOD BY AUTOMATED COUNT 0.7 % Normal 0.0-6.0 [facility] Comment on above: Performed By: #### L [id number] ####[facility] [place] [address] LYMPHOCYTES (10*3/UL) IN BLOOD BY CALCULATION 2.22 10*3/uL Normal 1.20-4.00 [facility] Comment on above: Performed By: #### L [id number] ####[facility] [place] [address] LYMPHOCYTES/100 LEUKOCYTES IN BLOOD BY AUTOMATED COUNT 11.5 % Low 20.0-45.0 [facility] Comment on above: Performed By: #### L [id number] ####[facility])[address] [place] [address] METAMYELOCYTES (10*3/UL) IN BLOOD BY CALCULATION 0.27 10*3/uL High 0.00 [facility] Comment on above: Performed By: #### L [id number] ####[facility])[address] [place] [address] METAMYELOCYTES/100 LEUKOCYTES IN BLOOD CELLAVISION 1.4 % High 0.0-0.0 [facility] Comment on above: Performed By: #### L [id number] ####[facility] [place] [address] MONOCYTES (10*3/UL) IN BLOOD BY CALCUATION 0.39 10*3/uL Normal 0.10-1.00 [facility] Comment on above: Performed By: #### L [id number] ####[facility] [place] [address] MONOCYTES/100 LEUKOCYTES IN BLOOD BY AUTOMATED COUNT 2.0 % Low 5.0-12.0 [facility] Comment on above: Performed By: #### L [id number] ####[facility] [place] [address] MYELOCYTES (10*3/UL) IN BLOOD BY CALCULATION 0.25 10*3/uL High 0.00 [facility] Comment on above: Performed By: #### L [id number] ####[facility] [place] [address] MYELOCYTES/100 LEUKOCYTES IN BLOOD CELLAVISION 1.3 % High 0.0-0.0 [facility] Comment on above: Performed By: #### L [id number] ####[facility])[address] [place] [address] NEUTROPHILS (10*3/UL) IN BLOOD BY CALCULATION 16.0 10*3/uL High 1.6-7.6 [facility] Comment on above: Performed By: #### L [id number] ####[facility])[address] [place] [address] NEUTROPHILS/100 LEUKOCYTES IN BLOOD BY AUTOMATED COUNT 83.1 % High 40.0-72.0 [facility] Comment on above: Performed By: #### L [id number] ####[facility])[address] [place] [address] PLASMA CELLS/100 LEUKOCYTES IN BLOOD 0 % Normal 0 [facility] Comment on above: Performed By: #### L [id number] ####[facility])[address] [place] [address] PLATELETS GIANT PRESENCE IN BLOOD BY LIGHT MICROSCOPY Present Normal [facility] Comment on above: Performed By: #### L [id number] ####[facility])[address] [place] [address] POIKILOCYTOSIS (PRESENCE) IN BLOOD BY LIGHT MICROSCOPY Slight Normal [facility] Comment on above: Performed By: #### L [id number] ####[facility])[address] [place] [address] POLYCHROMASIA IN BLOOD BY LIGHT MICROSCOPY Slight Normal [facility] Comment on above: Performed By: #### L [id number] ####[facility])[address] [place] [address] VARIANT LYMPHOCYTES (10*3/UL) IN BLOOD BY CALCULATION 0.00 10*3/uL Normal 0.00 [facility] Comment on above: Performed By: #### L [id number] ####[facility])[address] [place] [address] VARIANT LYMPHOCYTES/100 LEUKOCYTES IN BLOOD CELLAVISION 0.0 % Normal 0.0-0.0 [facility] Comment on above: Performed By: #### L [id number] ####[facility])[address] [place] [address] Telephoneon 07-03-2024 Telephone [phone] Alissa Kumar Mick 1945 F Date Provider Department Center 07/03/2024 SCOTT ECHEVARRIA [facility] No family history on file Normal [facility] [id number] 07-02-2024 [id number] Normal [facility] 30on 07-02-2024 30 The patient is Moder ately Stable - Low risk of patient condition declining or worsening The patient's goals for the shift include The clinical goals for the shift include VSS, Endoscopy Normal [facility] ANESon 07-02-2024 ANES Normal [facility] CBC WITH AUTO DIFFERENTIALon 07-02-2024 Erythrocyte distribution width (RBC) [Ratio] 22.8 % High 11.5-15.0 [facility] Comment on above: Performed By: #### L [id number] ####[facility])[address] [place] [address] ERYTHROCYTE MEAN CORPUSCULAR HEMOGLOBIN CONCENTRATION (G/DL) BY AUTOMATED 33.1 g/dL Normal 32.0-35.0 [facility] Comment on above: Performed By: #### L [id number] ####[facility])[address] [place] [address] Hematocrit (Bld) [Volume fraction] 27.8 % Low 36.0-48.0 [facility] Comment on above: Performed By: #### L [id number] ####[facility])[address] [place] [address] Hemoglobin (Bld) [Mass/Vol] 9.2 g/dL Low 12.0-15.0 [facility] Comment on above: Performed By: #### L [id number] ####[facility] [place] [address] MCH (RBC) [Entitic mass] 27.8 pg Normal 27.0-33.0 [facility] Comment on above: Performed By: #### L [id number] ####[facility] [place] [address] MCV (RBC) [Entitic vol] 84.0 fL Normal 82.0-98.0 [facility] Comment on above: Performed By: #### L [id number] ####[facility] [place] [address] NRBC (PER 100 WBCS) BY AUTOMATED COUNT 0.1 % High 0 [facility] Comment on above: Performed By: #### L [id number] ####[facility] [place] [address] PLATELETS (10*3/UL) IN BLOOD AUTOMATED COUNT 262 10*3/uL Normal 150-400 [facility] Comment on above: Performed By: #### L [id number] ####[facility] [place] [address] RBC (Bld) [#/Vol] 3.31 10*6/uL Low 3.80-5.00 [facility] Comment on above: Performed By: #### L [id number] ####[facility] [place] [address] WBC (Bld) [#/Vol] 19.51 10*3/uL High 4.00-10.60 [facility] Comment on above: Performed By: #### L [id number] ####[facility] [place] [address] COMPREHENSIVE METABOLIC PANE Rigoberto 07-02-2024 Albumin [Mass/Vol] 2.2 g/dL Low 3.5-5.7 [facility] Comment on above: Performed By: #### L [id number] ####[facility] [place] [address] ALP [Catalytic activity/Vol] 613 U/L High 34-104 [facility] Comment on above: Performed By: #### L [id number] ####[facility])[address] [place] [address] ALT [Catalytic activity/Vol] 178 U/L High 7-52 [facility] Comment on above: Performed By: #### L [id number] ####[facility])[address] [place] [address] Anion gap [Moles/Vol] 10 mmol/L Normal 7-20 [facility] Comment on above: Performed By: #### L [id number] ####[facility])[address] [place] [address] AST [Catalytic activity/Vol] 173 U/L High 13-39 [facility] Comment on above: Performed By: #### L [id number] ####[facility])[address] [place] [address] Bilirubin [Mass/Vol] 10.5 mg/dL High 0.3-1.0 [facility] Comment on above: Performed By: #### L [id number] ####[facility])[address] [place] [address] Calcium [Mass/Vol] 7.3 mg/dL Low 8.6-10.3 [facility] Comment on above: Performed By: #### L [id number] ####[facility])[address] [place] [address] Chloride [Moles/Vol] 111 mmol/L High 98-107 [facility] Comment on above: Performed By: #### L [id number] ####[facility])[address] [place] [address] CO2 [Moles/Vol] 21 mmol/L Normal 21-31 [facility] Comment on above: Performed By: #### L [id number] ####[facility])[address] [place] [address] Creatinine [Mass/Vol] 0.67 mg/dL Normal 0.60-1.20 [facility] Comment on above: Performed By: #### L [id number] ####[facility])[address] [place] [address] GLOMERULAR FILTRATION RATE ML/MIN/1.73 SQ M.PREDICTED 87.8 mL/min/1.73m*2 Normal >60.0 [facility] Comment on above: Result Comment: [facility]???s estimated glomerular filtration rate (eGFR) will no longer include consideration of race in its calculation. The National Kid[employer] Foundation???s eGFR Task Force developed new recommendations for the estimation of the glomerular filtration rate in the [place] They recommend immediate implementation of the new equation refit without the race variable in all laboratories because the calculation does not include race. In addition to not including race in the calculation and reporting, it included diversity in its development, and has acceptable performance characteristics and potential consequences that do not disproportionately affect any one group of individuals. Performed By: #### L [id number] ####[facility])[address] [place] [address] Glucose [Mass/Vol] 87 mg/dL Normal 70-100 [facility] Comment on above: Performed By: #### L [id number] ####[facility])[address] [place] [address] Potassium [Moles/Vol] 3.6 mmol/L Normal 3.5-5.1 [facility] Comment on above: Performed By: #### L [id number] ####[facility])[address] [place] [address] Protein [Mass/Vol] 3.7 g/dL Low 6.0-8.3 [facility] Comment on above: Performed By: #### L [id number] ####[facility])[address] [place] [address] Sodium [Moles/Vol] 138 mmol/L Normal 136-145 [facility] Comment on above: Performed By: #### L [id number] ####[facility] ([facility])[address] [place] [address] Urea nitrogen [Mass/Vol] 28 mg/dL High 7-25 [facility] Comment on above: Performed By: #### L [id number] ####[facility] [place] [address] UREA NITROGEN/CREATININ E (MASS RATIO) IN SER/PLAS 41.8 Normal [facility] Comment on above: Performed By: #### L [id number] ####[facility] [place] [address] CONSULTon 07-02-2024 CONSULT Normal [facility] HEMOGLOBIN AND HEMATOCRIT, B LOODon 07-02-2024 Hematocrit (Bld) [Volume fraction] 27.7 % Low 36.0-48.0 [facility] Comment on above: Performed By: #### L [id number] ####[facility] [place] [address] Hemoglobin (Bld) [Mass/Vol] 9.2 g/dL Low 12.0-15.0 [facility] Comment on above: Performed By: #### L [id number] ####[facility] [place] [address] Hematocrit (Bld) [Volume fraction] 26.3 % Low 36.0-48.0 [facility] Comment on above: Performed By: #### L [id number] ####[facility] ([facility])[address] [place] [address] Hemoglobin (Bld) [Mass/Vol] 8.6 g/dL Low 12.0-15.0 [facility] Comment on above: Performed By: #### L [id number] ####[facility] ([facility])[address] [place] [address] Hematocrit (Bld) [Volume fraction] 27.8 % Low 36.0-48.0 [facility] Comment on above: Performed By: #### L [id number] ####[facility])[address] [place] [address] Hemoglobin (Bld) [Mass/Vol] 9.1 g/dL Low 12.0-15.0 [facility] Comment on above: Performed By: #### L [id number] ####[facility] [place] [address] HPon 07-02-2024 HP Normal [facility] HP Normal [facility] LIPASEon 07-02-2024 LIPASE (U/L) IN SER/PLAS 56 U/L Normal 11-82 [facility] Comment on above: Performed By: #### L [id number] ####[facility])[address] [place] [address] MAGNESIUMon 07-02-2024 Magnesium [Mass/Vol] 1.7 mg/dL Low 1.9-2.7 [facility] Comment on above: Performed By: #### L [id number] ####[facility])[address] [place] [address] MANUAL DIFFERENTIALon 2024 ANISOCYTOSIS PRESENCE IN BLOOD BY LIGHT MICROSCOPY Moderate Normal [facility] Comment on above: Performed By: #### L [id number] ####[facility])[address] [place] [address] BASOPHILS (10*3/UL) IN BLOOD BY CALCULATION 0.00 10*3/uL Normal 0.00-0.20 [facility] Comment on above: Performed By: #### L [id number] ####[facility] [place] [address] BASOPHILS/100 LEUKOCYTES IN BLOOD BY AUTOMATED COUNT 0.0 % Normal 0.0-1.0 [facility] Comment on above: Performed By: #### L [id number] ####[facility] [facility] [address] EOSINOPHILS (10*3/UL) IN BLOOD BY CALCULATION 0.51 10*3/uL High 0.00-0.50 [facility] Comment on above: Performed By: #### L [id number] ####[facility])[address] [place] [address] EOSINOPHILS/100 LEUKOCYTES IN BLOOD BY AUTOMATED COUNT 2.6 % Normal 0.0-6.0 [facility] Comment on above: Performed By: #### L [id number] ####[facility])[address] [place] [address] LYMPHOCYTES (10*3/UL) IN BLOOD BY CALCULATION 1.29 10*3/uL Normal 1.20-4.00 [facility] Comment on above: Performed By: #### L [id number] ####[facility] [place] [address] LYMPHOCYTES/100 LEUKOCYTES IN BLOOD BY AUTOMATED COUNT 6.6 % Low 20.0-45.0 [facility] Comment on above: Performed By: #### L [id number] ####[facility] [place] [address] MONOCYTES (10*3/UL) IN BLOOD BY CALCUATION 0.76 10*3/uL Normal 0.10-1.00 [facility] Comment on above: Performed By: #### L [id number] ####[facility])[address] [place] [address] MONOCYTES/100 LEUKOCYTES IN BLOOD BY AUTOMATED COUNT 3.9 % Low 5.0-12.0 [facility] Comment on above: Performed By: #### L [id number] ####[facility] [place] [address] MYELOCYTES (10*3/UL) IN BLOOD BY CALCULATION 0.14 10*3/uL High 0.00 [facility] Comment on above: Performed By: #### L [id number] ####[facility] [place] [address] MYELOCYTES/100 LEUKOCYTES IN BLOOD CELLAVISION 0.7 % High 0.0-0.0 [facility] Comment on above: Performed By: #### L [id number] ####[facility] [place] [address] NEUTROPHILS (10*3/UL) IN BLOOD BY CALCULATION 16.8 10*3/uL High 1.6-7.6 [facility] Comment on above: Performed By: #### L [id number] ####[facility] [place] [address] NEUTROPHILS/100 LEUKOCYTES IN BLOOD BY AUTOMATED COUNT 86.2 % High 40.0-72.0 [facility] Comment on above: Performed By: #### L [id number] ####[facility] [place] [address] PLASMA CELLS/100 LEUKOCYTES IN BLOOD 0 % Normal 0 [facility] Comment on above: Performed By: #### L [id number] ####[facility] [place] [address] PLATELETS GIANT PRESENCE IN BLOOD BY LIGHT MICROSCOPY Present Normal [facility] Comment on above: Performed By: #### L [id number] ####[facility] [place] [address] POIKILOCYTOSIS (PRESENCE) IN BLOOD BY LIGHT MICROSCOPY Slight Normal [facility] Comment on above: Performed By: #### L [id number] ####[facility] [place] [address] POLYCHROMASIA IN BLOOD BY LIGHT MICROSCOPY Slight Normal [facility] Comment on above: Performed By: #### L [id number] ####[facility] [place] [address] VARIANT LYMPHOCYTES (10*3/UL) IN BLOOD BY CALCULATION 0.00 10*3/uL Normal 0.00 [facility] Comment on above: Performed By: #### L [id number] ####[facility] [place] [address] VARIANT LYMPHOCYTES/100 LEUKOCYTES IN BLOOD CELLAVISION 0.0 % Normal 0.0-0.0 [facility] Comment on above: Performed By: #### L [id number] ####[facility] [place] [address] PROTIME-INRon 07-02-2024 INR IN PPP BY COAGULATION ASSAY 1.28 High 0.90-1.10 [facility] Comment on above: Result Comment: [facility] P RECOMMENDED INR FOR WARFARIN THERAPY CONDITION INRPROPHYLAXIS OF VENOUS THROMBOSIS 2-3(HIGH-RISK SURGERY)TREATMENT OF VENOUS THROMBOSIS 2-3TREATMENT OF PULMONARY EMBOLISM 2-3PREVENTION OF SYSTEMIC EMBOLISM: 2-3 ACUTE MYOCARDIAL INFARCTION TISSUE HEART VALVES VALVULAR HEART DISEASE ATRIAL FIBRILLATION RECURRENT SYSTEMIC EMBOLISMMECHANICAL HEART VALVE 2.5-3.5 FROM: ORAL ANTICOAGULANTS. MECHANISM OF ACTION, CLINICAL EFFECTIVENESS, AND OPTIMAL THERAPEUTIC RANGE. CHEST 1995;108:231S-246S. Performed By: #### L [id number] ####[facility] [place] [address] PROTHROMBIN TIME (PT) IN PPP BY COAGULATION ASSAY 15.9 Seconds High 12.3-14.8 [facility] Comment on above: Performed By: #### L [id number] ####[facility] [place] [address] URINALYSIS MICROSCOPIC WITH REFLEX CULTUREon 07-02-2024 RBC (#/HPF) IN URINE SEDIMENT 0-2 Normal None Seen, 0-2 [facility] Comment on above: Performed By: #### L [id number] ####[facility] [place] [address] SQUAMOUS EPITHELIAL CELLS (#/LPF) IN URINE SEDIMENT Moderate Abnormal None Seen, Occasional , Few [facility] Comment on above: Performed By: #### L [id number] ####[facility] [place] [address] WBC (LEUKOCYTE) (#/HPF) IN URINE SEDIMENT 6-10 Abnormal None Seen, 0-2 [facility] Comment on above: Performed By: #### L [id number] ####[facility] [place] [address] URINALYSIS WITH REFLEX CULTU REon 07-02-2024 BILIRUBIN, TOTAL PRESENCE IN URINE Small Abnormal Negative [facility] Comment on above: Performed By: #### L [id number] ####[facility] [place] [address] Clarity (U) Clear Normal Clear [facility] Comment on above: Performed By: #### L [id number] ####[facility] [place] [address] Color (U) Dark-Yellow Abnormal Colorless, Yellow, Light-Barton ow [facility] Comment on above: Performed By: #### L [id number] ####[facility] [place] [address] GLUCOSE (MG/DL) IN URINE Normal Normal Normal [facility] Comment on above: Performed By: #### L [id number] ####[facility] [place] [address] HEMOGLOBIN PRESENCE IN URINE Moderate Abnormal Negative [facility] Comment on above: Performed By: #### L [id number] ####[facility] [place] [address] Ketones Ql (U) Negative Normal Negative [facility] Comment on above: Performed By: #### L [id number] ####[facility] [place] [address] LEUKOCYTE ESTERASE PRESENCE IN URINE BY TEST STRIP Negative Normal Negative [facility] Comment on above: Performed By: #### L [id number] ####[facility] [place] [address] NITRITE PRESENCE IN URINE Negative Normal Negative [facility] Comment on above: Performed By: #### L [id number] ####[facility] [place] [address] pH (U) 5.5 [pH] Normal 5.0-8.0 [facility] Comment on above: Performed By: #### L [id number] ####[facility] ([facility] [place])[address] [place] [address] Protein (U) [Mass/Vol] Negative Normal Negative [facility] Comment on above: Performed By: #### L [id number] ####[facility] ([facility] [place])[address] [place] [address] Specific gravity (U) [Rel density] 1.039 High 1.010-1.03 0 [facility] Comment on above: Performed By: #### L [id number] ####[facility])[address] [place] [address] UROBILINOGEN (MG/DL) IN URINE 2.0 mg/dL Abnormal Normal [facility] Comment on above: Performed By: #### L [id number] ####[facility] [place])[address] [place] [address] APTTon 07-01-2024 ACTIVATED PARTIAL THROMBOPLASTIN TIME IN PPP BY COAGULATION ASSAY 27.5 Seconds Normal 25.0-35.0 [facility] Comment on above: Result Comment: Clin ical significance of the APTT is questionable in the presence of heparin. Performed By: #### L [id number] ####[facility] ([facility] [place])[address] [place] [address] Anisocytosis LM Ql (Bld)on 0 07-01-2024 Anisocytosis Ql (Bld) Anisocytosis [Presence] in Blood by Light microscopy [facility] BASIC METABOLIC PANELon 06-15 Anion gap [Moles/Vol] 11 mmol/L Normal 7-20 [facility] Comment on above: Performed By: #### L [id number] ####[facility] ([facility])[address] [place] [address] Calcium [Mass/Vol] 7.4 mg/dL Low 8.6-10.3 [facility] Comment on above: Performed By: #### L [id number] ####[facility] ([facility])[address] [place] [address] Chloride [Moles/Vol] 108 mmol/L High 98-107 [facility] Comment on above: Performed By: #### L [id number] ####[facility] ([facility])[address] [place] [address] CO2 [Moles/Vol] 19 mmol/L Low 21-31 [facility] Comment on above: Performed By: #### L [id number] ####[facility] ([facility] [place])[address] [place] [address] Creatinine [Mass/Vol] 0.66 mg/dL Normal 0.60-1.20 [facility] Comment on above: Performed By: #### L [id number] ####[facility] ([facility] [place] [address] GLOMERULAR FILTRATION RATE ML/MIN/1.73 SQ M.PREDICTED 88.1 mL/min/1.73m*2 Normal >60.0 [facility] Comment on above: Result Comment: [facility]???s estimated glomerular filtration rate (eGFR) will no longer include consideration of race in its calculation. The National Kidney Foundation???s eGFR Task Force developed new recommendations for the estimation of the glomerular filtration rate in the [place] They recommend immediate implementation of the new equation refit without the race variable in all laboratories because the calculation does not include race. In addition to not including race in the calculation and reporting, it included diversity in its development, and has acceptable performance characteristics and potential consequences that do not disproportionately affect any one group of individuals. Performed By: #### L [id number] ####[facility] ([facility])[address] [place] [address] Glucose [Mass/Vol] 84 mg/dL Normal 70-100 [facility] Comment on above: Performed By: #### L [id number] ####[facility] ([facility] [place] [address] Potassium [Moles/Vol] 3.3 mmol/L Low 3.5-5.1 [facility] Comment on above: Performed By: #### L [id number] ####[facility] [place] [address] Sodium [Moles/Vol] 135 mmol/L Low 136-145 [facility] Comment on above: Performed By: #### L [id number] ####[facility] [place] [address] Urea nitrogen [Mass/Vol] 30 mg/dL High 7-25 [facility] Comment on above: Performed By: #### L [id number] ####[facility] [place] [address] UREA NITROGEN/CREATININ E (MASS RATIO) IN SER/PLAS 45.5 Normal [facility] Comment on above: Performed By: #### L [id number] ####[facility] [place] [address] Basophils/100 WBC Manual cnt (Bld)on 07-01-2024 Basophils/100 WBC (Bld) Basophils/100 leukocytes in Blood by Manual count Low 0.2-2.0 [facility] CBC WITH AUTO DIFFERENTIALon 07-01-2024 Erythrocyte distribution width (RBC) [Ratio] 17.7 % High 11.5-15.0 [facility] Comment on above: Performed By: #### L [id number] ####[facility] ([facility] [place] [address] ERYTHROCYTE MEAN CORPUSCULAR HEMOGLOBIN CONCENTRATION (G/DL) BY AUTOMATED 33.5 g/dL Normal 32.0-35.0 [facility] Comment on above: Performed By: #### L [id number] ####[facility] [place] [address] Hematocrit (Bld) [Volume fraction] 24.2 % Low 36.0-48.0 [facility] Comment on above: Performed By: #### L [id number] ####[facility] [place] [address] Hemoglobin (Bld) [Mass/Vol] 8.1 g/dL Low 12.0-15.0 [facility] Comment on above: Performed By: #### L [id number] ####[facility])[address] [place] [address] MCH (RBC) [Entitic mass] 29.8 pg Normal 27.0-33.0 [facility] Comment on above: Performed By: #### L [id number] ####[facility] [place] [address] MCV (RBC) [Entitic vol] 89.0 fL Normal 82.0-98.0 [facility] Comment on above: Performed By: #### L [id number] ####[facility])[address] [place] [address] NRBC (PER 100 WBCS) BY AUTOMATED COUNT 0.0 % Normal 0 [facility] Comment on above: Performed By: #### L [id number] ####[facility])[address] [place] [address] PLATELETS (10*3/UL) IN BLOOD AUTOMATED COUNT 259 10*3/uL Normal 150-400 [facility] Comment on above: Performed By: #### L [id number] ####[facility])[address] [place] [address] RBC (Bld) [#/Vol] 2.72 10*6/uL Low 3.80-5.00 [facility] Comment on above: Performed By: #### L [id number] ####[facility])[address] [place] [address] WBC (Bld) [#/Vol] 22.21 10*3/uL High 4.00-10.60 [facility] Comment on above: Performed By: #### L [id number] ####[facility] [place] [address] EDNURSon 07-01-2024 EDNURS Normal [facility] EDPROVon 07-01-2024 EDPROV Normal [facility] Eosinophils/100 WBC Manual c nt (Bld)on 07-01-2024 Eosinophils/100 WBC (Bld) Eosinophils/100 leukocytes in Blood by Manual count Low 0.9-7.0 [facility] Estimated glomerular filtrat ion rate (GFR) non- Americanon 07-01-2024 GFR/1.73 sq M.predicted among non-blacks MDRD (S/P/Bld) [Vol rate/Area] Estimated glomerular filtration rate (GFR) non- >=60 mL/min/1.7 3m 2 [facility] Globulin Calc (S) [Mass/Vol] on 07-01-2024 Globulin (S) [Mass/Vol] Serum globulin measurement by calculation (mass/volume) [facility] HEPATIC FUNCTION PANELon Albumin [Mass/Vol] 2.4 g/dL Low 3.5-5.7 [facility] Comment on above: Performed By: #### L [id number] ####[facility] ([facility])[address] [place] [address] ALP [Catalytic activity/Vol] 682 U/L High 34-104 [facility] Comment on above: Performed By: #### L [id number] ####[facility] ([facility])[address] [place] [address] ALT [Catalytic activity/Vol] 202 U/L High 7-52 [facility] Comment on above: Performed By: #### L [id number] ####[facility] [place] [address] AST [Catalytic activity/Vol] 192 U/L High 13-39 [facility] Comment on above: Performed By: #### L [id number] ####[facility] ([facility] [facility] [address] Bilirubin [Mass/Vol] 10.7 mg/dL High 0.3-1.0 [facility] Comment on above: Performed By: #### L [id number] ####[facility] ([facility])[address] [place] [address] Magnesium [Mass/Vol] 6.1 mg/dL High 0-0.2 [facility] Comment on above: Performed By: #### L [id number] ####[facility] ([facility])[address] [place] [address] Protein [Mass/Vol] 4.2 g/dL Low 6.0-8.3 [facility] Comment on above: Performed By: #### L [id number] ####[facility])[address] [place] [address] Hemoglobin.gastrointestinal [Presence] in Stoolon 07-01-2024 Hemoglobin.gastroi ntestinal Ql (Stl) Hemoglobin.gastrointestinal [Presence] in Stool Abnormal [facility] LACTIC ACID WITH 4 HOUR REFL EXon 07-01-2024 LACTATE (MMOL/L) IN SER/PLAS 0.8 mmol/L Normal 0.5-2.2 [facility] Comment on above: Performed By: #### L [id number] ####[facility])[address] [place] [address] LIPASEon 07-01-2024 LIPASE (U/L) IN SER/PLAS 95 U/L High 11-82 [facility] Comment on above: Performed By: #### L [id number] ####[facility])[address] [place] [address] Laboratory - Chemistry and C hemistry - challengeon 07-01-2024 Albumin [Mass/Vol] 1.7 g/dL Low 3.4-5.0 [facility] ALP [Catalytic activity/Vol] 821 U/L High 46-116 [facility] ALT [Catalytic activity/Vol] 269 U/L High 14-59 [facility] AST [Catalytic activity/Vol] 204 U/L High 15-37 [facility] Bilirubin [Mass/Vol] 10.9 mg/dL High 0.2-1.0 [facility] Bilirubin.direct [Mass/Vol] 9.2 mg/dL Critically high 0.0-0.2 [facility] Comment on above: RESULTS CALLED TO SHARI SERRANO RN Calcium [Mass/Vol] 8.1 mg/dL Low 8.5-10.1 [facility] Chloride [Moles/Vol] 102 mmol/L 98-107 [facility] CO2 [Moles/Vol] 26.8 mmol/L 21.0-32.0 [facility] Creatinine [Mass/Vol] 0.90 mg/dL 0.55-1.02 [facility] GFR/1.73 sq M.predicted MDRD (S/P/Bld) [Vol rate/Area] mL/min/{1.73_m2} >=60 mL/min/1.7 3m 2 [facility] Glucose [Mass/Vol] 111 mg/dL High 74-106 [facility] Lipase [Catalytic activity/Vol] 1459.0 U/L Critically high 16.0-77.0 [facility] Comment on above: RESULTS CALLED TO SHARI SERRANO RN Magnesium [Mass/Vol] 1.6 mg/dL Low 1.8-2.4 [facility] Potassium [Moles/Vol] 3.2 mmol/L Low 3.5-5.1 [facility] Protein [Mass/Vol] 4.6 g/dL Low 6.4-8.2 [facility] Sodium [Moles/Vol] 133 mmol/L Low 136-145 [facility] Urea nitrogen [Mass/Vol] 43.0 mg/dL High 7.0-18.0 [facility] Urea nitrogen/Creatinin e [Mass ratio] 47.8 mg/mg [facility] Laboratory - Hematology and Cell countson 07-01-2024 Band form neutrophils/100 WBC (Bld) 0.0 % 0-5 [facility] Lymphocytes/100 WBC (Bld) 13.0 % Low 20.5-60.0 [facility] Monocytes/100 WBC (Bld) 7.0 % 1.7-12.0 [facility] MANUAL DIFFERENTIALon 2024 BASOPHILS (10*3/UL) IN BLOOD BY CALCULATION 0.16 10*3/uL Normal 0.00-0.20 [facility] Comment on above: Performed By: #### L [id number] ####[facility] [facility] [address] BASOPHILS/100 LEUKOCYTES IN BLOOD BY AUTOMATED COUNT 0.7 % Normal 0.0-1.0 [facility] Comment on above: Performed By: #### L [id number] ####[facility])[address] [facility] [address] EOSINOPHILS (10*3/UL) IN BLOOD BY CALCULATION 0.00 10*3/uL Normal 0.00-0.50 [facility] Comment on above: Performed By: #### L [id number] ####[facility])[address] [facility] [address] EOSINOPHILS/100 LEUKOCYTES IN BLOOD BY AUTOMATED COUNT 0.0 % Normal 0.0-6.0 [facility] Comment on above: Performed By: #### L [id number] ####[facility] [place] [address] LYMPHOCYTES (10*3/UL) IN BLOOD BY CALCULATION 4.26 10*3/uL High 1.20-4.00 [facility] Comment on above: Performed By: #### L [id number] ####[facility] [place] [address] LYMPHOCYTES/100 LEUKOCYTES IN BLOOD BY AUTOMATED COUNT 19.2 % Low 20.0-45.0 [facility] Comment on above: Performed By: #### L [id number] ####[facility] [place] [address] MONOCYTES (10*3/UL) IN BLOOD BY CALCUATION 0.58 10*3/uL Normal 0.10-1.00 [facility] Comment on above: Performed By: #### L [id number] ####[facility] ([facility])[address] [place] [address] MONOCYTES/100 LEUKOCYTES IN BLOOD BY AUTOMATED COUNT 2.6 % Low 5.0-12.0 [facility] Comment on above: Performed By: #### L [id number] ####[facility] ([facility])[address] [place] [address] NEUTROPHILS (10*3/UL) IN BLOOD BY CALCULATION 17.2 10*3/uL High 1.6-7.6 [facility] Comment on above: Performed By: #### L [id number] ####[facility] ([facility])[address] [place] [address] NEUTROPHILS/100 LEUKOCYTES IN BLOOD BY AUTOMATED COUNT 77.5 % High 40.0-72.0 [facility] Comment on above: Performed By: #### L [id number] ####[facility] ([facility])[address] [place] [address] PLASMA CELLS/100 LEUKOCYTES IN BLOOD 0 % Normal 0 [facility] Comment on above: Performed By: #### L [id number] ####[facility])[address] [place] [address] PLATELETS GIANT PRESENCE IN BLOOD BY LIGHT MICROSCOPY Present Normal [facility] Comment on above: Performed By: #### L [id number] ####[facility])[address] [place] [address] VARIANT LYMPHOCYTES (10*3/UL) IN BLOOD BY CALCULATION 0.00 10*3/uL Normal 0.00 [facility] Comment on above: Performed By: #### L [id number] ####[facility])[address] [place] [address] VARIANT LYMPHOCYTES/100 LEUKOCYTES IN BLOOD CELLAVISION 0.0 % Normal 0.0-0.0 [facility] Comment on above: Performed By: #### L [id number] ####[facility] ([facility])[address] [place] [address] Metamyelocytes/100 WBC Zafar love cnt (Bld)on 07-01-2024 Metamyelocytes/100 WBC (Bld) Metamyelocytes/100 leukocytes in Blood by Manual count [facility] No Panel Informationon 07-01 Absolute Basophils (Manual) 0.00 10 3/uL 0.00-0.10 [facility] Band Neutrophils # (Manual) 0.0 10 3/uL 0.0-0.3 [facility] Eosinophils # (Manual) 0.00 10 3/uL 0.00-0.70 [facility] Lymphocytes # (Manual) 3.32 10 3/uL 1.20-3.80 [facility] Metamyelocytes # (Manual) 0.51 [facility] Monocytes # (Manual) 1.79 10 3/uL High 0.30-0.80 [facility] Segmented Neutrophils # (Manual) 19.96 10 3/uL High 1.4-6.5 [facility] Troponin I High Sensitivity 26.3 pg/mL 4.0-51.3 [facility] Comment on above: CUT-OFF POINTS HAVE BEEN ESTABLISHED BASED ON THE FOURTHUNIVERSAL DEFINITION OF MYOCARDIAL INFARCTION. THE UPPERREFERENCE LIMIT (URL) OF TROPONIN, DEFINED THE 99THPERCENTILE OF cTnI DISTRIBUTION IN A REFERENCE POPULATION,HAS BEEN CONFIRMED THE DECISION THRESHOLD FOR MIDIAGNOSIS.99TH PERCENTILE = 51.4 PG/MLNOTE: HIGH-SENSITIVITY TROPONIN ASSAY IS NOT INTENDED TO BEUSED IN ISOLATION BUT SHOULD BE INTERPRETED IN CONJUNCTIONWITH OTHER DIAGNOSTIC AND CLINICAL INFORMATION. PROTIME-INRon 07-01-2024 INR IN PPP BY COAGULATION ASSAY 1.29 High 0.90-1.10 [facility] Comment on above: Result Comment: ACCC P RECOMMENDED INR FOR WARFARIN THERAPY CONDITION INRPROPHYLAXIS OF VENOUS THROMBOSIS 2-3(HIGH-RISK SURGERY)TREATMENT OF VENOUS THROMBOSIS 2-3TREATMENT OF PULMONARY EMBOLISM 2-3PREVENTION OF SYSTEMIC EMBOLISM: 2-3 ACUTE MYOCARDIAL INFARCTION TISSUE HEART VALVES VALVULAR HEART DISEASE ATRIAL FIBRILLATION RECURRENT SYSTEMIC EMBOLISMMECHANICAL HEART VALVE 2.5-3.5 FROM: ORAL ANTICOAGULANTS. MECHANISM OF ACTION, CLINICAL EFFECTIVENESS, AND OPTIMAL THERAPEUTIC RANGE. CHEST 1995;108:231S-246S. Performed By: #### L [id number] ####[facility] [place] [address] PROTHROMBIN TIME (PT) IN PPP BY COAGULATION ASSAY 16.0 Seconds High 12.3-14.8 [facility] Comment on above: Performed By: #### L [id number] ####[facility] [place] [address] Segmented neutrophils/100 WB C Manual cnt (Bld)on 07-01-2024 Segmented neutrophils/100 WBC (Bld) Manual blood segmented neutrophils/100 leukocytes High 43.0-75.0 [facility] Serum or plasma albumin/glob ulin mass ratioon 07-01-2024 Albumin/Globulin [Mass ratio] Serum or plasma albumin/globulin mass ratio [facility] Serum or plasma anion gap de terminationon 07-01-2024 Anion gap [Moles/Vol] Serum or plasma anion gap determination [facility] TROPONIN Ion 07-01-2024 Troponin I.cardiac [Mass/Vol] 0.04 ng/mL Normal 0.00-0.04 [facility] Comment on above: Performed By: #### L [id number] ####[facility] [place] [address] TYPE AND SCREENon 07-01-2024 AB SCREEN Negative Normal [facility] Comment on above: Performed By: #### L [id number] ####[facility], ABO group Nom (Bld) O Normal [facility] Comment on above: Performed By: #### L [id number] ####[facility], RH TYPE IN BLOOD Positive Normal [facility] Comment on above: Performed By: #### L [id number] ####[facility], Urine Cultureon 07-01-2024 Bacteria identified Cx Nom (U) <9,000 colonies/ml mixed bacterial skin contaminants 2 Days PERFORMED BY: [facility] [address] [place] [address] PATHOLOGIST QUALITY CONTROL ENGINEERING TECHNICIAN FRANSICO JACKSON M.D. Normal [facility] Comment on above: Performed By: #### C UU #### [facility] [address] Urine cultureOrdered By: Tiago Hagen on 07-01-2024 Bacteria identified Cx Nom (U) Urine culture [facility] Whole blood hypersegmented n eutrophils detection by light microscopyon 07-01-2024 Neutrophils.hypers egmented LM Ql (Bld) Whole blood hypersegmented neutrophils detection by light microscopy [facility] [id number] 06-28-2024 [id number] Normal [facility] ANESon 06-28-2024 ANES Normal [facility] ANES Normal [facility] HISTOLOGY - TISSUE EXAMon LAB AP CASE REPORT Normal [facility] Comment on above: Result Comment: Surg ical Pathology Case: [id number] Provider: Bradley Díaz MD Collected: 06/28/2024 1558Ordering Location: Gabriel [facility] Received: 07/01/2024 0813 [facility] EndoscopyPathologist: DALY Lujanpecimens: A) - Common Bile Duct, COMMON HEPATIC DUCT BIOPSY RULE OUT MALIGNANCY, DYSPLASIA B) - Rectum, RECTAL MASS RULE OUT MALIGNANCY Performed By: #### L [id number] ####[facility] (BEAKER)[address] [place] [address] LAB AP CLINICAL INFORMATION Order Diagnoses Normal [facility] Comment on above: Result Comment: K83. 1 - Obstructive jaundice [ICD-10-CM]K76.9 - Liver lesion [ICD-10-CM]K62.9 - Rectal lesion [ICD-10-CM] Performed By: #### L [id number] ####[facility] ([facility] [place] [address] LAB AP DIAGNOSIS COMMENT The specimen in part B may not be entirely claims customer service representative of a larger mass. Parts A and B were reviewed in intradepartmental consensus with agreement of the diagnosis. Also see concurrent concurrent cytopathology case [id number]. [facility] Comment on above: Performed By: #### L [id number] ####[facility] ([facility])[address] [place] [address] LAB AP GROSS DESCRIPTION [facility] Comment on above: Result Comment: A. C ommon Bile Duct.Part A is received in formalin labeled Ellinor Covella and common hepatic duct biopsy rule out malignancy, dysplasia. It consists of 3 castillo-lovelace, delicate fragments of mucosal soft tissue ranging from 0.2 cm to 0.3 cm in greatest dimension admixed with scant hemorrhagic material. The scant hemorrhagic material may not survive processing. The specimen is submitted in toto in 1 cassette.Usha Mccoy, Pathologists' Mucker Operator studentNaomi Sands Pathologists' Mucker Operator studentB. Rectum.Part B is received in formalin labeled Ellinor Covella and rectal mass rule out malignancy. It consists of a 0.7 x 0.5 x 0.2 cm aggregate of multiple castillo-lovelace, delicate pieces of mucosal soft tissue. The specimen is submitted in toto in 1 cassette.Usha Mccoy, Pathologists' Mucker Operator studentNaomi Sands Pathologists' Mucker Operator student Performed By: #### L [id number] ####[facility])[address] [place] [address] LAB AP MICROSCOPIC DESCRIPTION Microscopic examination performed. [facility] Comment on above: Performed By: #### L [id number] ####[facility])[address] [place] [address] LAB AP REPORT FINAL DIAGNOSIS NARRATIVE [facility] Comment on above: Result Comment: A. C ommon bile duct, biopsy: - Adenocarcinoma.B. Rectal mass, biopsy: -Superficial fragments of tubulovillous adenoma. -No invasive neoplasm or high-grade dysplasia identified. -See comment. Performed By: #### L [id number] ####[facility] [place] [address] HPon 06-28-2024 HP Normal [facility] NON-SHAGGER CYTOLOGY - CELLULAR EXAMon 06-28-2024 LAB AP ADDENDUM 1 Normal [facility] Comment on above: Result Comment: Immu nohistochemical stains were performed with adequate controls. The tumor cells in part C (liver) are strongly positive for CK7. The tumor cells are negative for CK20 and CDX-2. The immunohistochemical profile does not support a metastatic lesion from the colon. The positive CK7 staining, while not specific, could be compatible with cholangiocarcinoma in the correct clinical context. Clinical correlation is recommended.Addendum electronically signed by Whitney Bernstein MD on 07/15/2024 at 11:40 AM Performed By: #### L [id number] ####[facility] [place] [address] LAB AP CASE REPORT Normal [facility] Comment on above: Result Comment: Non- gynecologic Cytology Case: [id number] Provider: Bradley Díaz MD Collected: 06/28/2024 1551Ordering Location[facility] Received: 07/01/2024 [facility] EndoscopyPathologist: DALY Travispecimens: A) - Hepatic Duct brushing, COMMON HEPATIC DUCT BRUSHING B) - Lymph Node, FNA PARADUODENAL LYMPH NODE C) - Liver, LEFT HEPATIC LOBE LESION Performed By: #### L [id number] ####[facility] [place] [address] LAB AP CLINICAL INFORMATION Order Diagnoses [facility] Comment on above: Result Comment: K83. 1 - Obstructive jaundice [ICD-10-CM]K76.9 - Liver lesion [ICD-10-CM]K62.9 - Rectal lesion [ICD-10-CM] Performed By: #### L [id number] ####[facility] [place] [address] LAB AP DIAGNOSIS COMMENT [facility] Comment on above: Result Comment: The cell block from part C contains moderate tumor cells for ancillary studies, if clinically indicated.See also concurrent surgical case, [id number]. Performed By: #### L [id number] ####[facility] [place] [address] LAB AP GROSS DESCRIPTION [facility] Comment on above: Result Comment: A. O ne brush received in 30 mL CytoLyt with hazy, yellow fluidB. 3 air-dried slides, 1 alcohol-fixed slide, 30 mL CytoLyt with clear, colorless fluid.C. 3 air-dried slides, 2 alcohol-fixed slides, 30 mL CytoLyt with cloudy, red fluid with white flecks. Performed By: #### L [id number] ####[facility] ([facility])[address] [place] [address] LAB AP INTRAOPERATIVE CONSULTATION B. Lymph Node. [facility] Comment on above: Result Comment: Rapi d on-site evaluation was performed by Tatiana Minaya MD.The material examined during rapid on-site evaluation was deemed adequate for diagnosis.Pass #1: AdequateC. Liver.Rapid on-site evaluation was performed by Tatiana Minaya MD.The material examined during rapid on-site evaluation was deemed adequate for diagnosis.Pass #1: AdequatePass #2: Adequate - scantPass #3: Defer - cell block*Only select material is examined during the on-site evaluation. Final diagnosis is pending the review of all material submitted.* Performed By: #### L [id number] ####[facility] ([facility])[address] [place] [address] LAB AP MICROSCOPIC DESCRIPTION [facility] Comment on above: Result Comment: A. S atisfactory for evaluation. Examination of the ThinPrep slide and cell block reveals scattered atypical cells with fine chromatin, nuclear enlargement, and nucleoli in a background of glandular epithelium, inflammation, and debris.B. Satisfactory for evaluation. Examination of the prepared smears and cell block reveals rare atypical cells, abundant lymphocytes, glandular epithelium, inflammation, and blood.C. Satisfactory for evaluation. Examination of the prepared smears and cell block reveals tumor cells exhibiting enlarged nuclei, fine chromatin and nucleoli in a background of hepatocytes, blood and debris. Performed By: #### L [id number] ####[facility] ([place])[address] [place] [address] LAB AP REPORT FINAL DIAGNOSIS NARRATIVE [facility] Comment on above: Result Comment: A. H epatic duct, brushing: - Suspicious for malignancyB. Lymph node, paraduodenal, EUS-guided fine needle aspiration: - Atypical cells presentC. Liver, EUS-guided fine needle aspiration: - Adenocarcinoma Performed By: #### L [id number] ####[facility] [place] [address] NURSNOTEon 06-28-2024 NURSNOTE RN reviewed discharg e instructions with patient and son. No questions or concerns expressed at this time. Normal [facility] NURSNOTE All positioning santo fernie removed grounding patch site clean dry intact, pt returned to stretcher per 4 assists. pt remains supine. Normal [facility] NURSNOTE Rectal mass biopsy s ent with cytology. Normal [facility] NURSNOTE Hepatic duct brushin g and hepatic duct biopsy sent with cytology at bedside. Normal [facility] POCT GLUCOSE METER UNSOLICIT ED RESULTSon 06-28-2024 Glucose [Mass/Vol] 96 mg/dL Normal 70-105 [facility] Comment on above: Order Comment: Waive d Testing in the ED is performed under the ED CLIA certificate #[id number]. Result Comment: epaw low Performed By: #### L [id number] ####[facility] ([facility])[address] [place] [address] Orders Onlyon 06-27-2024 Orders Only [id number] Radha Kumar 1945 F Date Provider Department Center 06/27/2024 [facility] No family history on file [facility] Basophils Auto (Bld) [#/Vol] on 06-18-2024 Basophils (Bld) [#/Vol] Automated basophil count 0.0-0.1 [facility] Basophils/100 WBC Auto (Bld) on 06-18-2024 Basophils/100 WBC (Bld) Automated basophil % 0.2-2.0 [facility] Eosinophils/100 WBC Auto (Bl d)on 06-18-2024 Eosinophils/100 WBC (Bld) Automated eosinophil % 0.9-7.0 [facility] Erythrocyte distribution wid th Auto (RBC) [Ratio]on 06-18-2024 Erythrocyte distribution width (RBC) [Ratio] Erythrocyte distribution width [Ratio] by Automated count High 11.0-15.0 [facility] Estimated glomerular filtrat ion rate (GFR) non- Americanon 06-18-2024 GFR/1.73 sq M.predicted among non-blacks MDRD (S/P/Bld) [Vol rate/Area] Estimated glomerular filtration rate (GFR) non- >=60 mL/min/1.7 3m 2 [facility] Globulin Calc (S) [Mass/Vol] on 06-18-2024 Globulin (S) [Mass/Vol] Serum globulin measurement by calculation (mass/volume) [facility] Hematocrit Auto (Bld) [Volum e fraction]on 06-18-2024 Hematocrit (Bld) [Volume fraction] Hematocrit [Volume Fraction] of Blood by Automated count 36.0-48.0 [facility] Hemoglobin [Mass/volume] in Bloodon 06-18-2024 Hemoglobin (Bld) [Mass/Vol] Hemoglobin [Mass/volume] in Blood 12.0-16.0 [facility] Laboratory - Chemistry and C hemistry - challengeon 06-18-2024 Albumin [Mass/Vol] 2.8 g/dL Low 3.4-5.0 [facility] ALP [Catalytic activity/Vol] 1074 U/L High 46-116 [facility] ALT [Catalytic activity/Vol] 499 U/L High 14-59 [facility] AST [Catalytic activity/Vol] 273 U/L High 15-37 [facility] Bilirubin [Mass/Vol] 12.9 mg/dL High 0.2-1.0 [facility] Calcium [Mass/Vol] 9.3 mg/dL 8.5-10.1 [facility] Chloride [Moles/Vol] 101 mmol/L 98-107 [facility] CO2 [Moles/Vol] 23.4 mmol/L 21.0-32.0 [facility] Creatinine [Mass/Vol] 0.83 mg/dL 0.55-1.02 [facility] GFR/1.73 sq M.predicted MDRD (S/P/Bld) [Vol rate/Area] mL/min/{1.73_m2} >=60 mL/min/1.7 3m 2 [facility] Glucose [Mass/Vol] 101 mg/dL 74-106 [facility] Potassium [Moles/Vol] 3.7 mmol/L 3.5-5.1 [facility] Protein [Mass/Vol] 6.5 g/dL 6.4-8.2 [facility] Sodium [Moles/Vol] 138 mmol/L 136-145 [facility] Urea nitrogen [Mass/Vol] 13.0 mg/dL 7.0-18.0 [facility] Urea nitrogen/Creatinin e [Mass ratio] 15.7 mg/mg [facility] Laboratory - Hematology and Cell countson 06-18-2024 Immature granulocytes/100 WBC (Bld) 1.0 % High 0.0-0.5 [facility] Leukocytes [#/volume] correc saleem for nucleated erythrocytes in Blood by Automated counon 06-18-2024 WBC corrected for nucl RBC Auto (Bld) [#/Vol] Leukocytes [#/volume] corrected for nucleated erythrocytes in Blood by Automated coun High 4.0-11.0 [facility] Lymphocytes Auto (Bld) [#/Vo l]on 06-18-2024 Lymphocytes (Bld) [#/Vol] Lymphocytes [#/volume] in Blood by Automated count 1.2-3.8 [facility] Lymphocytes/100 WBC Auto (Bl d)on 06-18-2024 Lymphocytes/100 WBC (Bld) Lymphocytes/100 leukocytes in Blood by Automated count Low 20.5-60.0 [facility] MCH Auto (RBC) [Entitic mass ]on 06-18-2024 MCH (RBC) [Entitic mass] MCH [Entitic mass] by Automated count 26.7-34.0 [facility] MCHC Auto (RBC) [Mass/Vol]on 06-18-2024 MCHC (RBC) [Mass/Vol] MCHC [Mass/volume] by Automated count 29.9-35.2 [facility] MCV Auto (RBC) [Entitic vol] on 06-18-2024 MCV (RBC) [Entitic vol] MCV [Entitic volume] by Automated count 81.0-99.0 [facility] Monocytes Auto (Bld) [#/Vol] on 06-18-2024 Monocytes (Bld) [#/Vol] Automated blood monocyte count High 0.3-0.8 [facility] Monocytes/100 WBC Auto (Bld) on 06-18-2024 Monocytes/100 WBC (Bld) Automated monocyte % 1.7-12.0 [facility] Neutrophils Auto (Bld) [#/Vo l]on 06-18-2024 Neutrophils (Bld) [#/Vol] Neutrophils [#/volume] in Blood by Automated count High 1.4-6.5 [facility] Neutrophils/100 WBC Auto (Bl d)on 06-18-2024 Neutrophils/100 WBC (Bld) Automated neutrophil % 43.0-75.0 [facility] No Panel Informationon 06-18 Eosinophils # (Auto) 0.5 10 3/uL 0.0-0.7 [facility] Immature Granulocyte # (Auto) 0.15 10 3/uL High 0.00-0.03 [facility] Platelet mean volume Auto (B ld) [Entitic vol]on 06-18-2024 Platelet mean volume (Bld) [Entitic vol] Platelet mean volume [Entitic volume] in Blood by Automated count 9.5-13.5 [facility] Platelets Auto (Bld) [#/Vol] on 06-18-2024 Platelets (Bld) [#/Vol] Platelets [#/volume] in Blood by Automated count 150-450 [facility] RBC Auto (Bld) [#/Vol]on RBC (Bld) [#/Vol] Erythrocytes [#/volu me] in Blood by Automated count 4.20-5.40 [facility] Serum or plasma albumin/glob ulin mass ratioon 06-18-2024 Albumin/Globulin [Mass ratio] Serum or plasma albumin/globulin mass ratio [facility] Serum or plasma anion gap de terminationon 06-18-2024 Anion gap [Moles/Vol] Serum or plasma anion gap determination [facility] CBC AUTO DIFFon 11-10-2020 BASO # 0.1 103/ul Normal 0.0-0.1 [facility] Comment on above: Performed By: #### C BC #### [facility] [address] [place] [address] Loly Naz Basophils/100 WBC (Bld) 0.6 % Normal 0.2-2.0 [facility] Comment on above: Performed By: #### C BC #### [facility] [address] [place] [address] Loly Naz EO # 0.4 103/ul Normal 0.0-0.7 [facility] Comment on above: Performed By: #### C BC #### [facility] [address] [place] [address] Loly Naz Eosinophils/100 WBC (Bld) 3.4 % Normal 0.9-7.0 [facility] Comment on above: Performed By: #### C BC #### [facility] [address] [place] [address] Loly Naz Erythrocyte distribution width (RBC) [Ratio] 13.1 % Normal 11.0-15.0 [facility] Comment on above: Performed By: #### C BC #### [facility] [address] [place] [address] Loly Naz Hematocrit (Bld) [Volume fraction] 41.5 % Normal 36.0-48.0 [facility] Comment on above: Performed By: #### C BC #### [facility] [address] [place], [place] [id number] Loly Naz Hemoglobin (Bld) [Mass/Vol] 13.5 g/dL Normal 12.0-16.0 [facility] Comment on above: Performed By: #### C BC #### [facility] [address] [place] [address] Lolysarah Childs IG # 0.03 10e3/ul Normal 0.00-0.03 [facility] Comment on above: Performed By: #### C BC #### [facility] [address] [place] [address] Lolysarah Childs IG % 0.3 % Normal 0.0-0.5 [facility] Comment on above: Performed By: #### C BC #### [facility] [address] [place] [address] Lolysarah Childs LYMPH # 3.6 103/ul Normal 1.2-3.8 [facility] Comment on above: Performed By: #### C BC #### [facility] [address] [place] [address] Loly Childs Lymphocytes/100 WBC (Bld) 34.9 % Normal 20.5-60.0 [facility] Comment on above: Performed By: #### C BC #### [facility] [address] [place] [address] Loly Childs MANUAL DIFF REQ NO Normal [facility] Comment on above: Performed By: #### C BC #### [facility] [address] [place] [address] Loly Childs MCH (RBC) [Entitic mass] 28.4 pg Normal 26.7-34.0 [facility] Comment on above: Performed By: #### C BC #### [facility] [address] [place] [address] Lolysarah Childs MCHC (RBC) [Mass/Vol] 32.5 g/dL Normal 29.9-35.2 [facility] Comment on above: Performed By: #### C BC #### [facility] [address] [place] [address] Lolysarah Childs MCV (RBC) [Entitic vol] 87.2 fL Normal 81.0-99.0 [facility] Comment on above: Performed By: #### C BC #### [facility] [address] [id number] Loly Naz MONO # 0.8 103/ul Normal 0.3-0.8 [facility] Comment on above: Performed By: #### C BC #### [facility] [address] [id number] Loly Naz Monocytes/100 WBC (Bld) 7.6 % Normal 1.7-12.0 [facility] Comment on above: Performed By: #### C BC #### [facility] [address] [place] [address] Loly Naz NEUT # 5.5 103/ul Normal 1.4-6.5 [facility] Comment on above: Performed By: #### C BC #### [facility] [address] [place] [address] Loly Naz Neutrophils/100 WBC (Bld) 53.2 % Normal 43.0-75.0 [facility] Comment on above: Performed By: #### C BC #### [facility] [address] [place], [place] [id number] Loly Naz Platelet mean volume (Bld) [Entitic vol] 12.6 fL Normal 9.5-13.5 [facility] Comment on above: Performed By: #### C BC #### [facility] [address] [place], [place] [id number] Loly Naz PLT 229 103/ul Normal 150-450 [facility] Comment on above: Performed By: #### C BC #### [facility] [address] [place] [address] Loly Naz RBC 4.76 106/ul Normal 4.20-5.40 [facility] Comment on above: Performed By: #### C BC #### [facility] [address] [place] [address] Loly Naz WBC 10.3 103/ul Normal 4.0-11.0 [facility] Comment on above: Performed By: #### C BC #### [facility] [address] [place] [address] Loly Naz LIPID PROFILEon 11-10-2020 CHOL-HDL RATIO NORM SEE BELOW Normal [facility] Comment on above: Result Comment: 3.3 - 4.4 LOW RISK 4.4 - 7.1 AVERAGE RISK 7.1 - 11.0 MODERATE RISK >11.0 HIGH RISK Performed By: #### L IPID, BMP #### [facility] [address] [address] Loly Naz Cholesterol [Mass/Vol] 173 mg/dL Normal <=200 [facility] Comment on above: Performed By: #### L IPID, BMP #### [facility] [address] [address] Loly Naz Cholesterol in HDL [Mass/Vol] 48 mg/dL Normal [facility] Comment on above: Performed By: #### L IPID, BMP #### [facility] [address] [address] Loly Naz Cholesterol in LDL [Mass/Vol] 113.8 mg/dL Normal [facility] Comment on above: Performed By: #### L IPID, BMP #### [facility] [address] [id number] Loly Naz Cholesterol.total/ Cholesterol in HDL [Mass ratio] 3.6 {ratio} Normal [facility] Comment on above: Performed By: #### L IPID, BMP #### [facility] [address] [address] Loly Naz HDL NORMAL > or = 60 mg/dl - LO W CARDIOVASCULAR RISK <40 mg/dl - HIGH CARDIOVASCULAR RISK Normal [facility] Comment on above: Performed By: #### L IPID, BMP #### [facility] [address] [id number] Loly Naz LDL CALC NORMAL SEE BELOW Normal [facility] Comment on above: Result Comment: <100 mg/dl OPTIMAL 100 - 129 mg/dl NEAR OR ABOVE OPTIMAL 130 - 159 mg/dl BORDERLINE HIGH 160 - 189 mg/dl HIGH >190 mg/dl VERY HIGH Performed By: #### L IPID, BMP #### [facility] [address] [id number] Loly Naz Triglyceride [Mass/Vol] 56 mg/dL Normal <=150 [facility] Comment on above: Performed By: #### L IPID, BMP #### [facility] [address] [place] [address] Loly Naz VLDL CALC 11.2 mg/dL Normal [facility] Comment on above: Performed By: #### L IPID, BMP #### [facility] [address] [place] [address] Lolysarah Jerezen PROF CHEM 8 (BAS METB)on Anion gap [Moles/Vol] 11.6 mmol/L Normal [facility] Comment on above: Performed By: #### L IPSHAQUILLE, BMP #### [facility] [address] [place] [address] Loly Naz Calcium [Mass/Vol] 9.1 mg/dL Normal 8.4-10.2 [facility] Comment on above: Performed By: #### L IPID, BMP #### [facility] [address] [place] [address] Loly Naz Chloride [Moles/Vol] 101 mmol/L Normal 98-107 [facility] Comment on above: Performed By: #### L IPSHAQUILLE, BMP #### [facility] [address] [place] [address] Loly Naz CO2 [Moles/Vol] 29.6 mmol/L Normal 22.0-30.0 [facility] Comment on above: Performed By: #### L IPID, BMP #### [facility] [address] [place] [address] Loly Naz Creatinine [Mass/Vol] 0.80 mg/dL Normal 0.52-1.04 [facility] Comment on above: Performed By: #### L IPID, BMP #### [facility] [address] [place] [address] Loly Naz EGFR-AF MACEDONIAN >60 Normal >=60 [facility] Comment on above: Performed By: #### L IPID, BMP #### [facility] [address] [place] [address] Loly Naz EGFR-NON AF MACEDONIAN >60 Normal >=60 [facility] Comment on above: Performed By: #### L IPID, BMP #### [facility] [address] [id number] Loly Naz Glucose [Mass/Vol] 95 mg/dL Normal 74-106 [facility] Comment on above: Performed By: #### L IPID, BMP #### [facility] [address] [id number] Loly Naz Potassium [Moles/Vol] 4.2 mmol/L Normal 3.4-5.0 [facility] Comment on above: Performed By: #### L IPID, BMP #### [facility] [address] [place], [place] [id number] Loly Naz Sodium [Moles/Vol] 138 mmol/L Normal 137-145 [facility] Comment on above: Performed By: #### L IPID, BMP #### [facility] [address] [place], [place] [id number] Loly Naz Urea nitrogen [Mass/Vol] 19.0 mg/dL Critically high 7.0-17.0 [facility] Comment on above: Performed By: #### L IPID, BMP #### [facility] [address] [place], [place] [id number] Loly Naz Urea nitrogen/Creatinin e [Mass ratio] 23.8 mg/mg Normal [facility] Comment on above: Performed By: #### L IPID, BMP #### [facility] [address] [place], [place] [id number] Loly Naz Vital Signs Date Time Vital Sign Value Performing Clinician Umai lity 07-19-2024 15:41-0500 Body temperature 97.7 [degF] Reuben Angela MD Work Phone: 07-19-2024 15:41-0500 Body weight 67.3 kg Reuben Angela MD Work Phone: 07-19-2024 15:41-0500 Diastolic blood pressure 81 mm[Hg] Reuben Angela MD Work Phone: 07-19-2024 15:41-0500 Heart rate 84 /min Reuben Angela MD Work Phone: 07-19-2024 15:41-0500 Respiratory rate 18 /min Reuben Angela MD Work Phone: 07-19-2024 15:41-0500 SaO2% (BldA) [Mass fraction] 98 % Reuben Angela MD Work Phone: 07-19-2024 15:41-0500 Systolic blood pressure 146 mm[Hg] Reuben Angela MD Work Phone: 07-16-2024 13:55-0500 Body height 162.56 cm Saad Pay DO Work Phone: [facility] 07-16-2024 13:55-0500 Body mass index (BMI) [Ratio] 25.9 kg/m2 Saad Pay DO Work Phone: [facility] 07-16-2024 13:55-0500 Body temperature 97 [degF] Saad Pay DO Work Phone: [facility] 07-16-2024 13:55-0500 Body weight 68.49 kg Saad Pay DO Work Phone: [facility] 07-16-2024 13:55-0500 Diastolic blood pressure 78 mm[Hg] Saad Pay DO Work Phone: [facility] 07-16-2024 13:55-0500 Systolic blood pressure 150 mm[Hg] Saad Pay DO Work Phone: [facility] 06-20-2024 11:00-0500 Body height 162.56 cm [facility] 06-20-2024 11:00-0500 Body mass index (BMI) [Ratio] 25.1 kg/m2 [facility] 06-20-2024 11:00-0500 Body weight 66.39 kg [facility] 06-20-2024 11:00-0500 Diastolic blood pressure 73 mm[Hg] [facility] 06-20-2024 11:00-0500 Heart rate 71 /min [facility] 06-20-2024 11:00-0500 SaO2% (BldA) [Mass fraction] 98 % [facility] 06-20-2024 11:00-0500 Systolic blood pressure 154 mm[Hg] [facility] 04-03-2024 15:58-0500 Body height 162.56 cm [facility] 04-03-2024 15:58-0500 Body mass index (BMI) [Ratio] 24.9 kg/m2 [facility] 04-03-2024 15:58-0500 Body weight 65.77 kg [facility] 04-03-2024 15:58-0500 Diastolic blood pressure 89 mm[Hg] [facility] 04-03-2024 15:58-0500 Heart rate 63 /min [facility] 04-03-2024 15:58-0500 Respiratory rate 12 /min [facility] 04-03-2024 15:58-0500 Systolic blood pressure 151 mm[Hg] [facility] Encounters Encounter Date Encounter Type Care Provider Facility Start: 08-05-2024 End: 08-05-2024 Telephone encounter [facility] Start: 08-01-2024 End: 08-02-2024 ambulatory Reuben Angela MD Work Phone: Hematology/Oncology Comment on above: Adenocarcinoma deter mined by biopsy of liver (HCC) (Primary Dx); Rectal mass; Mass of spine; Malignant obstructive jaundice (HCC) Start: 08-01-2024 End: 08-02-2024 Telemedicine consultation with patient Reuben Angela MD Work Phone: Hematology/Oncology Start: 07-23-2024 End: 07-23-2024 ambulatory MAYITO COSTELLO Facility:[facility] Start: 07-23-2024 End: 07-23-2024 Subsequent hospital visit by physician Arrival Time Radiology Work Phone: Radiology [facility] Comment on above: 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] Start: 07-22-2024 End: 07-29-2024 Telephone encounter Cande Espitia RN Hematology/Oncology Comment on above: Orders Start: 07-19-2024 End: 07-22-2024 ambulatory MAYITO COSTELLO Facility:[facility] Start: 07-19-2024 End: 07-19-2024 Office outpatient new 60 minutes Reuben Angela MD Work Phone: Hematology/Oncology Comment on above: 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); Other specified abnormal findings of blood chemistry Start: 07-18-2024 End: 07-18-2024 Chart abstracting Reuben Angela MD Work Phone: Hematology/Oncology Start: 07-16-2024 End: 07-16-2024 ambulatory Saad Pay DO Work Phone: [facility] Work Phone: Start: 07-16-2024 End: 07-16-2024 Patient encounter procedure Saad Pay DO Work Phone: [facility] Physician [facility] Work Phone: Start: 07-15-2024 Non-patient / Non-visit Jeffre y Pay DO Work Phone: [facility]ician [facility] Work Phone: Start: 07-12-2024 End: 07-12-2024 [facility] Start: 07-12-2024 End: 07-12-2024 [facility] Start: 07-08-2024 Evaluation and manag ement of inpatient BENITA PATRICK [facility] Start: 07-02-2024 Evaluation and manag ement of inpatient BRADLEY DÍAZ [facility] Start: 07-02-2024 Non-patient / Non-visit Jeffre y Pay DO Work Phone: [facility] Work Phone: Start: 07-01-2024 Emergency department patient visit INDIO DUFFY [facility] Start: 07-01-2024 End: 07-11-2024 Evaluation and management of inpatient SAAD HAGEN [facility] Start: 07-01-2024 End: 07-01-2024 ambulatory Saad Pay [facility] Work Phone: Start: 07-01-2024 End: 07-01-2024 Departed Referred Saad Hagen DO Work Phone: [facility] Start: 07-01-2024 Non-patient / Non-visit Mena Hagen DO Work Phone: [facility] Physician [facility] Work Phone: Start: 06-28-2024 End: 06-28-2024 ambulatory [facility] Start: 06-28-2024 End: 06-28-2024 ambulatory [facility] Start: 06-24-2024 End: 06-24-2024 ambulatory [facility] Work Phone: Start: 06-24-2024 End: 06-24-2024 [facility] Work Phone: Start: 06-20-2024 End: 06-20-2024 ambulatory [facility] Work Phone: Start: 06-20-2024 End: 06-20-2024 Patient encounter procedure [facility] Work Phone: Start: 06-18-2024 Non-patient / Non-visit [facility] Physician [facility] Work Phone: Start: 04-03-2024 End: 04-03-[address] [facility] Work Phone: Start: 04-03-2024 End: 04-03-2024 Patient encounter procedure [facility] Work Phone: Start: 04-01-2024 Patient encounter procedure [facility] Start: 03-20-2024 Non-patient / Non-visit [facility] Work Phone: Start: 03-29-2023 End: 03-29-2023 ambulatory Mayito Costello Other [employer] Other Start: 03-29-2023 Telephone encounter Mayito Costello [facility] Start: 01-04-2022 Adult health examination Chapo Costello Other [employer] Other Start: 05-18-2021 End: 05-19-[address] MAYITO COSTELLO Facility:[facility] Start: 11-12-2020 Encounter for genera l adult medical examination without abnormal findings DR MAYITO COSTELLO [facility] Start: 11-10-2020 End: 11-11-[address] MAYITO COSTELLO Facility:[facility] Start: 11-10-2020 End: 11-11-2020 Encounter for general adult medical examination without abnormal findings DR MAYITO COSTELLO Facility:[facility]1 Start: 10-22-2020 End: 10-23-[address] MAYITO COSTELLO Facility:[facility] Start: 09-21-2020 End: 09-22-[address] MAYITO COSTELLO Facility:[facility] Start: 08-31-2020 End: 09-01-2020 ambulatory LEONIDAS JIM Facility:[facility]1 Procedures Date Procedure Procedure Detail Performing Clinician Start: 07-23-2024 Gluc bld gluc mntr d ev cleared fda spec home use [facility] Provider Start: 07-19-2024 Blood count complete auto&auto difrntl wbc Reuben Angela MD Work Phone: Start: 07-01-2024 Urine culture Saad ghotra DO Work Phone: Depression screening Camila Costello Other Plan of Treatment Date Care Activity Detail Author Start: 07-20-2027 Diabetes Screening Diabetes Screening Start: 07-11-2027 Diabetes Screening Diabetes Screening Start: 08-08-2024 End: 08-08-2024 Patient encounter procedure 08/08/2024 2:00 PM EDT Office Visit Colorectal Surgery [address] [place], [place] [id number] [place] [id number] [place] [address] Consult to [facility] Colorectal Surgery Comment on above: Consult to [facility] Start: 08-01-2024 End: 08-01-2024 ambulatory 08/01/2024 3:00 PM EDT [facility] Hematology/Oncology [address] [place] [address] Jae Bourne MD [address] [place] [address] Virtual Visit in 2 weeks Hematology/Oncol ogy Comment on above: Virtual Visit in 2 weeks Start: 07-19-2024 End: 07-19-2024 ambulatory 07/19/2024 4:00 PM EST Visit (SP) Office Hematology/Oncology [address] [place] [address] [place] [address] Reuben Angela MD [address] [place] [address] Mayito Costello DX: adenocarcinoma of liver Hematology/Oncol ogy Comment on above: Ref by Dr Mayito Costello DX: adenocarcino ma of liver Start: 07-19-2024 End: 10-18-2024 Cancer Ag 19-9 [Units/volume] in Serum or Plasma Comment on above: Expected: 07/19/2024, Expires: 5 Start: 07-19-2024 End: 07-19-2025 Carcinoembryonic Ag [Mass/volume] in Serum or Plasma [facility] Work Phone: Comment on above: Expected: 07/19/2024, Expires: 6 Start: 07-01-2024 Bacteria identified in Urine by Culture Urine Culture [facility] Start: 07-01-2024 Urine culture [facility] Start: 05-15-2024 Advance Directive Discussion Advance Directive Discussion Cl [facility] Start: 01-14-2024 Covid-19 Vaccine ( season) Covid-19 Vaccine ( season) Start: 01-14-2024 Covid-19 Vaccine () Covid-19 Vaccine () Start: 01-14-2024 Influenza vaccination Influenza Vaccine (#1) [facility] Start: 2018 RSV Vaccine (1 - 1-dose 75+ series) RSV Vaccine (1 - 1-dose 75+ series) Start: 02-04-2008 Screening for osteoporosis Bone Density Screening Start: 1993 Pneumococcal Vaccine: 50+ (1 of 1 - PCV) Pneumococcal Vaccine: 50+ (1 of 1 - PCV) Start: 1993 Shingrix Vaccine (1 of 2) Shingrix Vaccine (1 of 2) [facility] Start: 1962 Urine microalbumin profile DTaP,Tdap,Td Vaccine (1 - Tdap) Start: 1961 Anxiety Screening Anxiety Screening Start: 1961 Depression Screening Depression Screening Comprehensive metabo lic 2000 panel - Serum or Plasma [facility] CT Abdomen and Pelvi s W contrast IV [facility] F[facility] NONELIQUIDCDX Lab Routine Cholangiocarcinoma (HCC) 07/23/2024 11:16 AM EDT [facility] Work Phone: End: 09-03-2025 MR Lumbar spine WO and W contrast IV MRI LUMBAR SPINE WO/W IVCON Radiology DANI 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 (HCC) Rectal mass 1 Occurrences starting 08/04/2024 until 09/03/2025 Comment on above: 1 Occurrences starting 08/04/2024 until 09/03/2025 End: 09-03-2025 MR Thoracic spine WO and W contrast IV MRI THORACIC SPINE WO/W IVCON Radiology DANI 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 (HCC) Rectal mass 1 Occurrences starting 08/04/2024 until 09/03/2025 [facility] Work Phone: Comment on above: 1 Occurrences starting 08/04/2024 until 09/03/2025 End: 08-18-2025 PET+CT Guidance for localization of tumor of Skull base to mid-thigh-- W 18F-FDG IV NM PET/CT SKULL-THIGH INITIAL Radiology Routine Cholangiocarcinoma of biliary tract (HCC) Other specified abnormal findings of blood chemistry 1 Occurrences starting 07/19/2024 until 08/18/2025 Comment on above: 1 Occurrences starting 07/19/2024 until 08/18/2025 PET+CT Guidance for localization of tumor of Skull base to mid-thigh-- W 18F-FDG IV NM PET/CT SKULL-THIGH INITIAL Radiology Routine Cholangiocarcinoma of biliary tract (HCC) Other specified abnormal findings of blood chemistry 07/23/2024 1:22 PM EDT [facility] Work Phone: XR Chest 2 Views [facility] Payers Date Payer Category Payer Private Health Insurance [employer] S UPPLEMENT [id number] 2022 Private Health Insurance CLI [id number] 2008 Medicare [id number] 1959 Medicare [id number] 1959 Self-pay 1959 Unknown [id number] 1943 Unknown [id number] 1943 Unknown [id number] 1943 Unknown [id number] 1943 Unknown [id number] Unknown [id number] Unknown [id number] Social History Date Type Detail Facility Start: 07-19-2024 Sex Assigned At [facility] [employer] Other Tobacco smoking status FLIS Unknown if ever smoked [facility] Work Phone: Start: 04-03-2024 End: 07-16-2024 Sex Female (finding) [facility] Start: 1945 Sex Assigned At Female [facility] Start: 1945 Sex assigned at Not on file Start: 07-19-2024 Tobacco smoking status NHIS Never smoked tobacco Start: 07-19-2024 Tobacco use and exposure Smokeless tobacco non-user Start: 07-19-2024 Alcoholic beverage intake Ex-drinker (finding) Start: 07-19-2024 History of Social function National Score (1-100), lower number is lower risk 80 Start: 07-19-2024 Alcohol Comment occasionally Clinical Notes 04-03-2024 to 08-05-2024 Telephone Encounter - Oskar Nelson - 08/05/2024 9:14 AM EDTTelephone Encounter - Oskar Nelson - 08/05/2024 9:14 AM EDTPatient Reuben Callahan MD - 08/01/2024 4:40 PM EDT Note Date & Type Note Facility 08-05-2024 Telephone encounter Note Images from the original note were not included. Reuben Angela MD P [facility] Clerical Pool 1. MRI Spine 2. MRI Liver 3. Referral to [facility] [place] for rectal mass 4. Following MRI's will refer to [facility] ([facility]) 5. Virtual visit following MRI. 08/05/24 Spoke to patient, faxed MRI orders to [facility]. Referral to [place] scheduled 08/08 at 2pm. Will scheduled Virtual Follow up will be scheduled after MRIS 08-05-2024 Miscellaneous Notes Images from the original note were not included. Reuben Angela MD P [facility] Clerical Pool 1. MRI Spine 2. MRI Liver 3. Referral to [facility] [place] for rectal mass 4. Following MRI's will refer to [facility] ([facility]) 5. Virtual visit following MRI. 08/05/24 Spoke to patient, faxed MRI orders to [facility]. Referral to [place] scheduled 08/08 at 2pm. Will scheduled Virtual Follow up will be scheduled after MRIS documented in this encounter 08-04-2024 Instructions Reuben Angela MD - 08/04/2024 5:38 PM EDT MRI Spine MRI Liver Referral to [facility] [place] for rectal mass Following MRI's will refer to [facility] ([facility]) Virtual visit following MRI. documented in this encounter 08-01-2024 History of Present illness Narrative Images from the original note were not included. [facility] NO[facility] [id number] DATE OF SERVICE: August 01, 2024 (Landon) Some elements in this clinic note that are critical to medical decision making have been carefully reviewed and included from a prior clinic note dated: July 19, 2024 (Landon) Referring Provider: Mayito Costello, DO Additional Clinicians involved in Jenna Kumar's care: Bradley Díaz VIRTUAL VISIT PROGRESS NOTE This is a virtual visit using [employer] Video Call. It required patient-provider interaction for the medical decision making as documented below. I have communicated my name and active licensure. The patient's identity and physical location were verified at the time of this visit. Either the patient or their legal claims customer service representative has been informed of the risks and benefits of -- and alternatives to -- treatment through a remote evaluation and consents to proceed with the evaluation remotely. DIAGNOSIS: Metastatic adenocarcinoma of liver ASSESSMENT: 79 year old woman with metastatic adenocarcinoma of liver of unclear etiology. She had a rectal mass that was not malignant on biopsy but is still having some pain and bleeding from this. She presented with obstructive jaundice. And workup determined + adenocarcinoma of liver on EUS guided biopsy of liver mass. Hepatic duct brushing was suspicious for malignancy but non-diagnostic. 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 Will obtain PET CT to help direct additional workup. Aside from persisting jaundice, she has a very well preserved functional status and appears younger than stated age. Foundation One testing pending. PLAN: MRI Spine MRI Liver Referral to [facility] [place] for rectal mass Following MRI's will refer to [facility] ([facility] or [facility]) Virtual visit following MRI. HPI: CASE HISTORY: Reverse Chronological Order 07/23/2024 - PET/CT: PRIMARY DISEASE SITE: Circumferential abnormal increased metabolic activity in the RIGHT hepatic lobe lesion with biliary stent in place. Heterogenous radiotracer uptake in the remaining liver tissue, correlate with MRI for better evaluation of liver lesions. There is interval development of circumferential multifocal metabolically active rectal wall thickening, correlate with physical exam/MRI of the abdomen and pelvis. MARIA ELENA DISEASE: No metabolically active regional lymphadenopathy. ADDITIONAL FINDINGS: Multiple mildly metabolically active osseous lesions of indeterminate significance. Trace LEFT pleural effusion. [facility]: Results in process 07/19/2024 - CA 19-9: <2.0, CEA: 2.9 07/11/2024 - Total Bilirubin: 5.5, Alk Phos: 753, AST: 88, ALT: 61, Total Protein: 4.8, Albumin: 2.4 07/08/2023 - Colonoscopy: A. Colon, rectal mass, biopsy: Tubular adenoma with focal high grade dysplasia B. Colon, rectal mass #2, biopsy: Tubular adenoma 07/04/2024 - CEA, CA 19-9, & AFP: Normal 07/02/2024 - EGD: Small duodenal ulcer 07/01/2024 - CT Head/Brain & A/P: Head/Brain: No acute intracranial process is identified. A/P: Interval placement of internal biliary stents which extend into the left hepatic lobe with associated decompression of the previously dilated intrahepatic bile ducts within the left hepatic lobe. Persistently dilated intrahepatic bile ducts within the right hepatic lobe. Ill-defined heterogenous mass within hepatic segments 4A and 4B measuring 5.2 x 4.8 cm is again noted. Heterogeneously enhancing rectal mass is again identified which is not well assessed on this examination. Recommend correlation with digital rectal examination. Stable bilateral renal cysts. 07/01/2024 - Total Bilirubin: 10.9, Direct Bilirubin: 9.2, Alk Phos: 821, AST: 204, ALT: 269, Total Protein: 4.6, Albumin: 1.7 07/01/2024-07/11/2024 - ER at [facility] after a fall due to lightheadedness, dizziness, and hypotension - transferred and admitted at [facility] for GI bleed 06/28/2024 - ERCP & Sigmoidoscopy: Dr. Bradley Díaz at [facility] High grade intrahepatic duct mass/stricture, large left hepatic mass, common hepatic duct mass Sphincterotomy, 2 intrahepatic duct stents placed Cytology: A. Hepatic duct, brushing: Suspicious for malignancy B. Lymph node, paraduodenal, EUS-guided fine needle aspiration: Atypical cells present C. Liver, EUS-guided fine needle aspiration: Adenocarcinoma Addendum: Immunohistochemical stains were performed with adequate controls. The tumor cells in part C (liver) are strongly positive for CK7. The tumor cells are negative for CK20 and CDX-2. The immunohistochemical profile does not support a metastatic lesion from the colon. The positive CK7 staining, while not specific, could be compatible with cholangiocarcinoma in the correct clinical context. Clinical correlation is recommended. Histology - Tissue Exam: A. Common bile duct, biopsy: Adenocarcinoma B. Rectal mass, biopsy: Superficial fragments of tubulovillous adenoma No invasive neoplasm or high-grade dysplasia identified Comment: The specimen in part B may not be entirely claims customer service representative of a larger mass. 06/21/2024 - CT A/P: A 4.6 x 3.4 cm il-defined hypoenhancing region in segment 4A and B and 8, suspicious for primary hepatic neoplasm such as cholangiocarcinoma or metastasis. There appears capsule retraction of the segment 8 and 4A. Liver protocol MRI with contrast, including diffusion weighted images and MRCP is recommended for better evaluation. Intraluminal polypoid lower rectal mass from 3-11:00 Trendelenburg position, highly suspicious for rectal adenocarcinoma. Rectal protocol pelvic MRI with contrast and/or PET/CT is recommended for better evaluation. 06/21/2024 - CXR: Chest radiograph shows nothing to suggest acute findings 06/18/2024 - Total Bilirubin: 12.9, Alk Phos: 1074, AST: 273, ALT: 499, Total Protein: 6.5, Albumin: 2.8 Late 05/2024 - Onset of jaundice, dark urine, chang colored stool, narrowing of her stool caliber, and pruritus Updated Visit, August 01, 2024: Virtual Visit Jenna presented for discussion of tumor board discussion that occurred this morning. She feels ok. She is due for stent exchange in the next week. Will need imaging of spine as well as imaging of liver via MRI. Will also refer to [facility] and [facility] [place] for further diagnostics. Initial Visit, July 19, 2024: Jenna Kumar presents today for a Hematology and Oncology evaluation. She is joined by her sons, Jony and Anupam. Jenna is an 79 year old female who with newly diagnosed adenocarcinoma. She developed jaundice, dark urine, chang colored stool, narrowing of her stool caliber, and pruritus in late 05/2024. LFTs in 06/2024 were abnormal, subsequent imaging showed a region in segment 4A and B and 8 that was suspicious for neoplasm & a suspicious appearing rectal mass. She underwent an outpatient ERCP and Sigmoidoscopy on 06/28/2024 at [facility]. 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 She had a fall due to lightheadedness, dizziness, and hypotension and presented to the ER at [facility] on 07/01/2024. She was found to have a GI bleed and was transferred to [facility] for management. Scopes were repeated while inpatient - a small duodenal ulcer was seen, biopsies of the same rectal mass confirmed tubular adenoma with focal high grade dysplasia. She endorses current rectal bleeding and pain due to the mass. Jaundice has improved in her skin, eyes appear yellow in clinic today. She complains of fatigue but is able to care for herself at home. Suspect this is a cholangiocarcinoma - will order a PET/CT and present her case at Tumor Board. We discussed the importance of maintaining her quality of life with treatment. 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 She does have exposure to secondhand smoke. Prior History form [facility] Discharge Summary on 07/11/2024: Hospital Course: Ms. Jenna Kumar is an 79 y.o. female transferred from [facility] to [facility] ER when she presented to [facility] for recurrent GI bleed increased fatigue weakness. She was found to have hemoglobin around 7 and blood pressure was low patient was admitted at [facility] on 06/28/2024 with diagnosis of jaundice pruritus workup showed ill-defined hypoattenuating mass suspicion for primary hepatic neoplasia and also rectal adenocarcinoma. Her presenting labs show bilirubin 12.9 alkaline phosphatase 1074 ALT 499 patient underwent ERCP/EUS with results showing high-grade common hepatic duct/hilar stricture common hepatic duct mass as well as left hepatic lobe lesion underwent brushing fine-needle aspiration and stent placement. Patient has poor appetite denies any abdominal pain has some dyspeptic symptoms pruritus feeling weak fatigue tired. EGD was performed with evidence of small duodenal ulcer 2/2 biliary stent, stent was repositioned. Patient is s/p 2 unit PRBC. Common bile duct biopsy confirmed adenocarcinoma. Hem/onc was consulted, no inpatient chemo at this time. Patient did develop fever and there was concern for cholangitis. Blood culture positive for E coli. ID consulted, was started on levaquin and metronidazole, then switched to meropenem. Patient developed rash on her abdomen and back. She was switched back to levaquin on 07/08. Patient had colonoscopy done on 07/08 for biopsies of rectal mass. Patient was seen and examined on 07/11 AM. She was doing well. Patient's rash had resolved. Discussed patient's care with ID and GI. GI requested for ID clearance prior to discharge due to concern for acute cholangitis. I spoke with ID provider Jesús and she did not have any concerns of the patient going home. Addendum: Patient requested to speak with Dr. Díaz prior to discharge. Dr. Díaz was in procedure during this time and the GI team had informed him to see the patient. Discharge order was placed after discussing with GI team and ID team and I was trying to get a hold of Dr. Díaz prior to discharging the patient. However, the patient was told by staff that Dr. Díaz is not in house and patient became very upset and signed discharge papers that she does not agree with the discharge. I tried to talk with the patient that she can wait until Dr. Díaz sees her, which may be tomorrow. However, patient was very upset and did not even let me finish speaking and son stated, You are going in circles. She would like to go now. I spoke with Dr. Puri of GI and he confirmed that Dr. Díaz will see her today. I called patient and updated her that Dr. Díaz was indeed going to see her. She asked for a call from Dr. Díaz. Patient is discharged in stable condition. REVIEW OF SYSTEMS Per HPI and otherwise negative by full review of organ systems. ECOG PERFORMANCE STATUS: 1 PHYSICAL EXAMINATION: Vitals: There were no vitals taken for this visit. There is no height or weight on file to calculate BSA. No exam ALLERGIES: ALLERGIES Allergen Reactions Penicillins Hives Sulfadiazine Hives MEDICATIONS: iv contrast (will be provided with radiology test) MRI TSP Inject, intravenously, once for 1 dose. No IV access, insert saline lock prior to the beginning of sedation, infusion, injection of imaging exam. Discontinue saline lock post exam. If Pt. has a central line or IVAD, may access for administration according to line specific nursing protocol. Once exam is complete flush line and de-access according to line specific nursing protocol in the MR contrast administration guidelines link. iv contrast (will be provided with radiology test) MRI LSP Inject, intravenously, once for 1 dose. No IV access, insert saline lock prior to the beginning of sedation, infusion, injection of imaging exam. Discontinue saline lock post exam. If Pt. has a central line or IVAD, may access for administration according to line specific nursing protocol. Once exam is complete flush line and de-access according to line specific nursing protocol in the MR contrast administration guidelines link. diazePAM (VALIUM) 2 mg tablet Take 2 mg by mouth every 6 hours as needed. hydrocortisone 2.5 % cream APPLY TOPICALLY TWICE DAILY NEEDED FOR SKIN IRRITATION FOR 30 DAYS losartan (COZAAR) 25 mg tablet Take 25 mg by mouth. metoprolol tartrate, short acting, (LOPRESSOR) 25 mg tablet Take 12.[address] (PROTONIX) 40 mg tablet Take 40 mg by mouth. (Patient not taking: Reported on 07/19/2024) LABORATORY VALUES: WBC (k/uL) Date Value 07/19/2024 16.86 (H) RBC (m/uL) Date Value 07/19/2024 3.62 (L) Hemoglobin (g/dL) Date Value 07/19/2024 10.8 (L) Hematocrit (%) Date Value 07/19/2024 34.4 (L) MCV (fL) Date Value 07/19/2024 95.0 MCH (pg) Date Value 07/19/2024 29.8 MCHC (g/dL) Date Value 07/19/2024 31.4 RDW-CV (%) Date Value 07/19/2024 19.1 (H) Platelet Count (k/uL) Date Value 07/19/2024 368 MPV (fL) Date Value 07/19/2024 12.6 Glucose (mg/dL) Date Value 07/19/2024 109 (H) BUN (mg/dL) Date Value 07/19/2024 14 Creatinine (mg/dL) Date Value 07/19/2024 0.73 Sodium (mmol/L) Date Value 07/19/2024 137 Potassium (mmol/L) Date Value 07/19/2024 3.6 (L) Chloride (mmol/L) Date Value 07/19/2024 101 CO2 (mmol/L) Date Value 07/19/2024 24 Protein, Total (g/dL) Date Value 07/19/2024 6.1 (L) Albumin (g/dL) Date Value 07/19/2024 3.1 (L) Calcium, Total (mg/dL) Date Value 07/19/2024 8.7 Alkaline Phosphatase (U/L) Date Value 07/19/2024 1,130 (H) Bilirubin, Total (mg/dL) Date Value 07/19/2024 4.2 (H) AST (U/L) Date Value 07/19/2024 125 (H) ALT (U/L) Date Value 07/19/2024 56 (H) DIAGNOSIS: (C22.9) 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 (HCC) (primary encounter diagnosis) Plan: CONSULT TO COLO-RECTAL SURGERY, MRI THORACIC SPINE WO/W IVCON, iv contrast (will be provided with radiology test), MRI LUMBAR SPINE WO/W IVCON, iv contrast (will be provided with radiology test) (K62.89) Rectal mass Plan: CONSULT TO COLO-RECTAL SURGERY, MRI THORACIC SPINE WO/W IVCON, iv contrast (will be provided with radiology test), MRI LUMBAR SPINE WO/W IVCON, iv contrast (will be provided with radiology test) (M89.8X8) Mass of spine (K83.1, C80.1) Malignant obstructive jaundice (HCC) PAST MEDICAL HISTORY Diagnosis Date ANDRES (generalized anxiety disorder) High risk medication use Hypercholesterolemia Hypertension Obstructive jaundice Primary adenocarcinoma of liver (HCC) Tubulovillous adenoma of rectum PAST SURGICAL HISTORY Procedure Laterality Date BILIARY STENT Social History Tobacco Use Smoking status: Never Smokeless tobacco: Never Vaping Use Vaping status: Never Used Substance Use Topics Alcohol use: Not Currently Comment: occasionally Drug use: Never FAMILY HISTORY Problem Relation Age of Onset Melanoma Mother Heart disease Father No Known Problems Sister No Known Problems Maternal Grandmother No Known Problems Maternal Grandfather Diabetes Paternal Grandmother Diabetes Son type 1 Coronary Artery Disease Son Hypertension Son Diabetes Son type 2 Coronary Artery Disease Son Hypertension Son I spent a total of 40 minutes on the date of the service which included preparing to see the patient, completing clinical documentation, obtaining and/or reviewing separately obtained history, counseling and educating the patient/family/caregiver, ordering medications, tests, or procedures, communicating with other HCPs (not separately reported), independently interpreting results (not separately reported), communicating results to the patient/family/caregiver, and care coordination (not separately reported). Reuben Angela MD, CPE Hematology and Oncology Services Provided at: [facility]: Mayito Costello DO [address] [facility] [address] Bradley Díaz MD documented in this encounter 08-01-2024 Note HNO ID: [id number] Author: REUBEN ANGELA MD Service: ? Author Type: Physician Type: Progress Notes Filed: 08/04/2024 17:40 Note Text: NAME: Alissa Kumarjustin [facility] NO.: [id number] DATE OF SERVICE: August 01, 2024 (Landon) Some elements in this clinic note that are critical to medical decision making have been carefully reviewed and included from a prior clinic note dated: July 19, 2024 ([place]) Referring Provider: Mayito Costello DO Additional Clinicians involved in Jenna Kumar's care: Bradley Díaz VIRTUAL VISIT PROGRESS NOTE This is a virtual visit using [employer] Video Call. It required patient-provider interaction for the medical decision making as documented below. I have communicated my name and active licensure. The patient's identity and physical location were verified at the time of this visit. Either the patient or their legal claims customer service representative has been informed of the risks and benefits of -- and alternatives to -- treatment through a remote evaluation and consents to proceed with the evaluation remotely. DIAGNOSIS: Metastatic adenocarcinoma of liver ASSESSMENT: 79 year old woman with metastatic adenocarcinoma of liver of unclear etiology. She had a rectal mass that was not malignant on biopsy but is still having some pain and bleeding from this. She presented with obstructive jaundice. And workup determined + adenocarcinoma of liver on EUS guided biopsy of liver mass. Hepatic duct brushing was suspicious for malignancy but non-diagnostic. 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 Will obtain PET CT to help direct additional workup. Aside from persisting jaundice, she has a very well preserved functional status and appears younger than stated age. Foundation One testing pending. PLAN: MRI Spine MRI Liver Referral to [facility] [place] for rectal mass Following MRI's will refer to EMI (Mic or Darrell) Virtual visit following MRI. HPI: CASE HISTORY: Reverse Chronological Order 07/23/2024 - PET/CT: PRIMARY DISEASE SITE: Circumferential abnormal increased metabolic activity in the RIGHT hepatic lobe lesion with biliary stent in place. Heterogenous radiotracer uptake in the remaining liver tissue, correlate with MRI for better evaluation of liver lesions. There is interval development of circumferential multifocal metabolically active rectal wall thickening, correlate with physical exam/MRI of the abdomen and pelvis. MARIA ELENA DISEASE: No metabolically active regional lymphadenopathy. ADDITIONAL FINDINGS: Multiple mildly metabolically active osseous lesions of indeterminate significance. Trace LEFT pleural effusion. 07/23/2024 - Sonavation Liquid CDx drawn: Results in process 07/19/2024 - CA 19-9: <2.0, CEA: 2.9 07/11/2024 - Total Bilirubin: 5.5, Alk Phos: 753, AST: 88, ALT: 61, Total Protein: 4.8, Albumin: 2.4 07/08/2023 - Colonoscopy: A. Colon, rectal mass, biopsy: Tubular adenoma with focal high grade dysplasia B. Colon, rectal mass #2, biopsy: Tubular adenoma 07/04/2024 - CEA, CA 19-9, AND AFP: Normal 07/02/2024 - EGD: Small duodenal ulcer 07/01/2024 - CT Head/Brain AND A/P: Head/Brain: No acute intracranial process is identified. A/P: Interval placement of internal biliary stents which extend into the left hepatic lobe with associated decompression of the previously dilated intrahepatic bile ducts within the left hepatic lobe. Persistently dilated intrahepatic bile ducts within the right hepatic lobe. Ill-defined heterogenous mass within hepatic segments 4A and 4B measuring 5.2 x 4.8 cm is again noted. Heterogeneously enhancing rectal mass is again identified which is not well assessed on this examination. Recommend correlation with digital rectal examination. Stable bilateral renal cysts. 07/01/2024 - Total Bilirubin: 10.9, Direct Bilirubin: 9.2, Alk Phos: 821, AST: 204, ALT: 269, Total Protein: 4.6, Albumin: 1.7 07/01/2024-07/11/2024 - ER at [facility] after a fall due to lightheadedness, dizziness, and hypotension - transferred and admitted at [facility] for GI bleed 06/28/2024 - ERCP AND Sigmoidoscopy: Dr. Bradley Díaz at [facility] High grade intrahepatic duct mass/stricture, large left hepatic mass, common hepatic duct mass Sphincterotomy, 2 intrahepatic duct stents placed Cytology: A. Hepatic duct, brushing: Suspicious for malignancy B. Lymph node, paraduodenal, EUS-guided fine needle aspiration: Atypical cells present C. Liver, EUS-guided fine needle aspiration: Adenocarcinoma Addendum: Immunohistochemical stains were performed with adequate controls. The tumor cells in part C (liver) are strongly positive for CK7. The tumor cells are negative for CK20 and CDX-2. The immunohistochemical profile does not support a metastatic lesion f (more content not included)... [facility] 08-01-2024 Note HNO ID: [id number] Author: REUBEN ANGELA MD Service: ? Author Type: Physician Type: Progress Notes Filed: 08/04/2024 17:44 Note Text: [facility] Multidisciplinary GI Tumor Board Primary Disease: Adenocarcinoma Liver Oncologist: Reuben Angela MD History: 79 year old woman with metastatic adenocarcinoma of liver of unclear etiology. She had a rectal mass that was not malignant on biopsy but is still having some pain and bleeding from this. She presented with obstructive jaundice. And workup determined + adenocarcinoma of liver on EUS guided biopsy of liver mass. Hepatic duct brushing was suspicious for malignancy but non-diagnostic. 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 Will obtain PET CT to help direct additional workup. Aside from persisting jaundice, she has a very well preserved functional status and appears younger than stated age. Late 05/2024 - Onset of jaundice, dark urine, chang colored stool, narrowing of her stool caliber, and pruritus 06/18/2024 - Total Bilirubin: 12.9, Alk Phos: 1074, AST: 273, ALT: 499, Total Protein: 6.5, Albumin: 2.8 07/01/2024-07/11/2024 - ER at [facility] after a fall due to lightheadedness, dizziness, and hypotension - transferred and admitted at [facility] for GI bleed 07/01/2024 - Total Bilirubin: 10.9, Direct Bilirubin: 9.2, Alk Phos: 821, AST: 204, ALT: 269, Total Protein: 4.6, Albumin: 1.7 07/08/2023 - Colonoscopy: A. Colon, rectal mass, biopsy: Tubular adenoma with focal high grade dysplasia B. Colon, rectal mass #2, biopsy: Tubular adenoma Imagin06/21/2024 - CT A/P: A 4.6 x 3.4 cm il-defined hypoenhancing region in segment 4A and B and 8, suspicious for primary hepatic neoplasm such as cholangiocarcinoma or metastasis. There appears capsule retraction of the segment 8 and 4A. Liver protocol MRI with contrast, including diffusion weighted images and MRCP is recommended for better evaluation. Intraluminal polypoid lower rectal mass from 3-11:00 Trendelenburg position, highly suspicious for rectal adenocarcinoma. Rectal protocol pelvic MRI with contrast and/or PET/CT is recommended for better evaluation. 07/01/2024 - CT Head/Brain AND A/P:Head/Brain: No acute intracranial process is identified. A/P: Interval placement of internal biliary stents which extend into the left hepatic lobe with associated decompression of the previously dilated intrahepatic bile ducts within the left hepatic lobe. Persistently dilated intrahepatic bile ducts within the right hepatic lobe. Ill-defined heterogenous mass within hepatic segments 4A and 4B measuring 5.2 x 4.8 cm is again noted. Heterogeneously enhancing rectal mass is again identified which is not well assessed on this examination. Recommend correlation with digital rectal examination. Stable bilateral renal cysts. Surgical Pathologic Stage: TBD Clinical Pathologic Stage: TBD - metastatic vs. 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 Await Foundation One testing. Genetic counseling referral: no Eligibility for Clinic Trials: no Supportive Care Services (PT/OT/Palliative Medicine/Social Work/Pain Management): none Synoptic OP note completed: N/A Attendees: Representatives were present from Medical Oncology, Colorectal Surgery, HPB Surgery, Surgical Oncology, Radiation Oncology, Radiology, Interventional radiology, Gastroenterology and Pathology. This is the summary of the general discussion provided at tumor board conference. The final recommendations will be made by the primary health care team and the patient after discussing the benefits, risks and alternatives to the various treatment options [facility] 07-23-2024 History of Present illness Narrative Radiology Service Progress Note DATE OF SERVICE: July 23, 2024 TIME: 11:29 AM PATIENT IDENTITY VERIFICATION COMPLETED USING TWO (2) STANDARD IDENTIFIERS: Name and Date of confirmed by patient verbally. FALL SCREENING: Has the patient had 2 falls in the last year or 1 fall with injury or currently using an Ambulatory Assistive Device (Walker, Cane, Wheelchair, Crutches, etc.)? No PATIENT GENDER DATA: Assigned female at . status: : No status: NO. EXAM: CT -CONTRAST INDUCED NEPHROPATHY RISK FACTORS: Not applicable CREATININE: Creatinine Date Value Ref Range Status 07/19/2024 0.73 0.58 - 0.96 mg/dL Final Estimated Glomerular Filtration Rate Date Value Ref Range Status 07/19/2024 83 >=60 mL/min/1.73m Final Comment: Estimated Glomerular Filtration Rate (eGFR) is calculated using the 2020 CKD-EPI creatinine equation. This equation utilizes serum creatinine, sex, and age as parameters. The creatinine assay has traceable calibration to isotope dilution-mass spectrometry. Refer to KDIGO guidelines for clinical interpretation. In patients with unstable renal function, e.g. those with acute kidney injury, the eGFR may not accurately reflect actual GFR. P.O.C.T. RESULTS: N/A July 23, 2024 TREATMENT: N/A IV SITE: Ambulatory: A peripheral IV was started in the Right antecubital site with a Angio cath: 22 gauge. IV SITE APPEARANCE: Clean,Dry and Intact SIGNATURE: Vickie Tang RN PATIENT NAME: Jenna Kumar DATE: July 23, 2024 TIME: 11:29 AM RADIOLOGY SERVICE PROGRESS NOTE SERVICE DATE: 07/23/2024 SERVICE TIME: 12:06 PM PATIENT IDENTITY VERIFICATION COMPLETED USING TWO (2) STANDARD IDENTIFIERS: Name and Date of confirmed by patient verbally POST EXAM PIV STATUS: Discontinued PROCEDURE TYPE: NM INJECT: PET/CT BODY SCAN. 6.6 mCi F18 FDG. No other medications given.. ADMINISTRATION TIME: 1135 PATIENT DISCHARGED TO: Ambulatory patient, left [place] department area. Is this a therapy: No A Diagnostic radioactive procedure has taken place, with no further precautions necessary other than routine body substance precautions. More information regarding radiation safety can be found using this link: [email or web address] [email or web address] SIGNATURE: RT Dai(R) PATIENT NAME: Jenna Kumar DATE: July 23, 2024 TIME: 12:06 PM PAGER/CONTACT #: documented in this encounter 07-23-2024 Note HNO ID: [id number] Author: VICKIE TANG RN Service: ? Author Type: Registered Nurse Type: Progress Notes Filed: 07/23/2024 11:29 Note Text: Radiology Service Progress Note DATE OF SERVICE: July 23, 2024 TIME: 11:29 AM PATIENT IDENTITY VERIFICATION COMPLETED USING TWO (2) STANDARD IDENTIFIERS: Name and Date of confirmed by patient verbally. FALL SCREENING: Has the patient had 2 falls in the last year or 1 fall with injury or currently using an Ambulatory Assistive Device (Walker, Cane, Wheelchair, Crutches, etc.)? No PATIENT GENDER DATA: Assigned female at . status: : No status: NO. EXAM: CT -CONTRAST INDUCED NEPHROPATHY RISK FACTORS: Not applicable CREATININE: Creatinine Date Value Ref Range Status 07/19/2024 0.73 0.58 - 0.96 mg/dL Final Estimated Glomerular Filtration Rate Date Value Ref Range Status 07/19/2024 83 >=60 mL/min/1.73m? Final Comment: Estimated Glomerular Filtration Rate (eGFR) is calculated using the 2020 CKD-EPI creatinine equation. This equation utilizes serum creatinine, sex, and age as parameters. The creatinine assay has traceable calibration to isotope dilution-mass spectrometry. Refer to KDIGO guidelines for clinical interpretation. In patients with unstable renal function, e.g. those with acute kidney injury, the eGFR may not accurately reflect actual GFR. PJalenO.C.T. RESULTS: N/A July 23, 2024 TREATMENT: N/A IV SITE: Ambulatory: A peripheral IV was started in the Right antecubital site with a Angio cath: 22 gauge. IV SITE APPEARANCE: Clean,Dry and Intact SIGNATURE: Vickie Tang RN PATIENT NAME: Jenna Kumar DATE: July 23, 2024 TIME: 11:29 AM [facility] 07-23-2024 Note HNO ID: [id number] Author: ASHLEY ERIC RT(José) Service: ? Author Type: Technologist Type: Progress Notes Filed: 07/23/2024 12:06 Note Text: RADIOLOGY SERVICE PROGRESS NOTE SERVICE DATE: 07/23/2024 SERVICE TIME: 12:06 PM PATIENT IDENTITY VERIFICATION COMPLETED USING TWO (2) STANDARD IDENTIFIERS: Name and Date of confirmed by patient verbally POST EXAM PIV STATUS: Discontinued PROCEDURE TYPE: NM INJECT: PET/CT BODY SCAN. 6.6 mCi F18 FDG. No other medications given.. ADMINISTRATION TIME: 1135 PATIENT DISCHARGED TO: Ambulatory patient, left [place] department area. Is this a therapy: No A Diagnostic radioactive procedure has taken place, with no further precautions necessary other than routine body substance precautions. More information regarding radiation safety can be found using this link: [email or web address]%20Medicine [email or web address] SIGNATURE: RT Dai(José) PATIENT NAME: Jenna Kumar DATE: July 23, 2024 TIME: 12:06 PM PAGER/CONTACT #: [facility] 07-22-2024 Telephone encounter Note Orders placed 07-22-2024 Miscellaneous Notes Orders placed Dr. Garcia said in his plan on 07/19 to draw labs for FoundationOne the same day as scan. The patient is coming in tomorrow 07/23 for PET if you would like FoundationOne to be draw at time of scan please place order... Thanks!! Cande Espitia RN documented in this encounter 07-22-[address] Garcia said in his plan on 07/19 to draw labs for FoundationOne the same day as scan. The patient is coming in tomorrow 07/23 for PET if you would like FoundationOne to be draw at time of scan please place order... Thanks!! Cande Esptiia RN 07-19-2024 Instructions Shari Dumont - 07/19/2024 4:26 PM EST Will present case at Tumor Board on 07/25/2024 PET/CT prior to Tumor Board Labs for FoundationOne same day Virtual visit in 2 weeks documented in this encounter 07-19-2024 History of Present illness Narrative Images from the original note were not included. NAME: Jenna Kumar [facility] NO.: [id number] DATE OF SERVICE: July 19, 2024 (Abhyankar) Referring Provider: Mayito Costello, Consultation requested by Dr. Costello for an opinion regarding Ms. Jenna Kumar, and my final recommendations will be communicated back to the requesting physician by way of shared medical record or letter via US mail. Additional Clinicians involved in Jenna Kumar's care: Bradley Díaz DIAGNOSIS: Metastatic adenocarcinoma of liver. ASSESSMENT: 79 year old woman with metastatic adenocarcinoma of liver of unclear etiology. She had a rectal mass that was not malignant on biopsy but is still having some pain and bleeding from this. She presented with obstructive jaundice. And workup determined + adenocarcinoma of liver on EUS guided biopsy of liver mass. Hepatic duct brushing was suspicious for malignancy but non-diagnostic. 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 Will obtain PET CT to help direct additional workup. Aside from persisting jaundice, she has a very well preserved functional status and appears younger than stated age. PLAN: Labs drawn today Will present case at Tumor Board on 07/25/2024 PET/CT prior to Tumor Board Labs for FoundationOne same day Virtual visit in 2 weeks HPI: CASE HISTORY: Reverse Chronological Order 07/11/2024 - Total Bilirubin: 5.5, Alk Phos: 753, AST: 88, ALT: 61, Total Protein: 4.8, Albumin: 2.4 07/08/2023 - Colonoscopy: A. Colon, rectal mass, biopsy: Tubular adenoma with focal high grade dysplasia B. Colon, rectal mass #2, biopsy: Tubular adenoma 07/04/2024 - CEA, CA 19-9, & AFP: Normal 07/02/2024 - EGD: Small duodenal ulcer 07/01/2024 - CT Head/Brain & A/P: Head/Brain: No acute intracranial process is identified. A/P: Interval placement of internal biliary stents which extend into the left hepatic lobe with associated decompression of the previously dilated intrahepatic bile ducts within the left hepatic lobe. Persistently dilated intrahepatic bile ducts within the right hepatic lobe. Ill-defined heterogenous mass within hepatic segments 4A and 4B measuring 5.2 x 4.8 cm is again noted. Heterogeneously enhancing rectal mass is again identified which is not well assessed on this examination. Recommend correlation with digital rectal examination. Stable bilateral renal cysts. 07/01/2024 - Total Bilirubin: 10.9, Direct Bilirubin: 9.2, Alk Phos: 821, AST: 204, ALT: 269, Total Protein: 4.6, Albumin: 1.7 07/01/2024-07/11/2024 - ER at [facility] after a fall due to lightheadedness, dizziness, and hypotension - transferred and admitted at [facility] for GI bleed 06/28/2024 - ERCP & Sigmoidoscopy: Dr. Bradley Díaz at [facility] High grade intrahepatic duct mass/stricture, large left hepatic mass, common hepatic duct mass Sphincterotomy, 2 intrahepatic duct stents placed Cytology: A. Hepatic duct, brushing: Suspicious for malignancy B. Lymph node, paraduodenal, EUS-guided fine needle aspiration: Atypical cells present C. Liver, EUS-guided fine needle aspiration: Adenocarcinoma Addendum: Immunohistochemical stains were performed with adequate controls. The tumor cells in part C (liver) are strongly positive for CK7. The tumor cells are negative for CK20 and CDX-2. The immunohistochemical profile does not support a metastatic lesion from the colon. The positive CK7 staining, while not specific, could be compatible with cholangiocarcinoma in the correct clinical context. Clinical correlation is recommended. Histology - Tissue Exam: A. Common bile duct, biopsy: Adenocarcinoma B. Rectal mass, biopsy: Superficial fragments of tubulovillous adenoma No invasive neoplasm or high-grade dysplasia identified Comment: The specimen in part B may not be entirely claims customer service representative of a larger mass. 06/21/2024 - CT A/P: A 4.6 x 3.4 cm il-defined hypoenhancing region in segment 4A and B and 8, suspicious for primary hepatic neoplasm such as cholangiocarcinoma or metastasis. There appears capsule retraction of the segment 8 and 4A. Liver protocol MRI with contrast, including diffusion weighted images and MRCP is recommended for better evaluation. Intraluminal polypoid lower rectal mass from 3-11:00 Trendelenburg position, highly suspicious for rectal adenocarcinoma. Rectal protocol pelvic MRI with contrast and/or PET/CT is recommended for better evaluation. 06/21/2024 - CXR: Chest radiograph shows nothing to suggest acute findings 06/18/2024 - Total Bilirubin: 12.9, Alk Phos: 1074, AST: 273, ALT: 499, Total Protein: 6.5, Albumin: 2.8 Late 05/2024 - Onset of jaundice, dark urine, chang colored stool, narrowing of her stool caliber, and pruritus Initial Visit, July 19, 2024: Jenna Kumar presents today for a Hematology and Oncology evaluation. She is joined by her sons, Jony and Anupam. Jenna is an 79 year old female who with newly diagnosed adenocarcinoma. She developed jaundice, dark urine, chang colored stool, narrowing of her stool caliber, and pruritus in late 05/2024. LFTs in 06/2024 were abnormal, subsequent imaging showed a region in segment 4A and B and 8 that was suspicious for neoplasm & a suspicious appearing rectal mass. She underwent an outpatient ERCP and Sigmoidoscopy on 06/28/2024 at [facility]. 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 She had a fall due to lightheadedness, dizziness, and hypotension and presented to the ER at [facility] on 07/01/2024. She was found to have a GI bleed and was transferred to [facility] for management. Scopes were repeated while inpatient - a small duodenal ulcer was seen, biopsies of the same rectal mass confirmed tubular adenoma with focal high grade dysplasia. She endorses current rectal bleeding and pain due to the mass. Jaundice has improved in her skin, eyes appear yellow in clinic today. She complains of fatigue but is able to care for herself at home. Suspect this is a cholangiocarcinoma - will order a PET/CT and present her case at Tumor Board. We discussed the importance of maintaining her quality of life with treatment. 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 She does have exposure to secondhand smoke. Prior History form [facility] Discharge Summary on 07/11/2024: Hospital Course: Ms. Jenna Kumar is an 79 y.o. female transferred from [facility] to [facility] ER when she presented to [facility] for recurrent GI bleed increased fatigue weakness. She was found to have hemoglobin around 7 and blood pressure was low patient was admitted at [facility] on 06/28/2024 with diagnosis of jaundice pruritus workup showed ill-defined hypoattenuating mass suspicion for primary hepatic neoplasia and also rectal adenocarcinoma. Her presenting labs show bilirubin 12.9 alkaline phosphatase 1074 ALT 499 patient underwent ERCP/EUS with results showing high-grade common hepatic duct/hilar stricture common hepatic duct mass as well as left hepatic lobe lesion underwent brushing fine-needle aspiration and stent placement. Patient has poor appetite denies any abdominal pain has some dyspeptic symptoms pruritus feeling weak fatigue tired. EGD was performed with evidence of small duodenal ulcer 2/2 biliary stent, stent was repositioned. Patient is s/p 2 unit PRBC. Common bile duct biopsy confirmed adenocarcinoma. Hem/onc was consulted, no inpatient chemo at this time. Patient did develop fever and there was concern for cholangitis. Blood culture positive for E coli. ID consulted, was started on levaquin and metronidazole, then switched to meropenem. Patient developed rash on her abdomen and back. She was switched back to levaquin on 07/08. Patient had colonoscopy done on 07/08 for biopsies of rectal mass. Patient was seen and examined on 07/11 AM. She was doing well. Patient's rash had resolved. Discussed patient's care with ID and GI. GI requested for ID clearance prior to discharge due to concern for acute cholangitis. I spoke with ID provider Jesús and she did not have any concerns of the patient going home. Addendum: Patient requested to speak with Dr. Díaz prior to discharge. Dr. Díaz was in procedure during this time and the GI team had informed him to see the patient. Discharge order was placed after discussing with GI team and ID team and I was trying to get a hold of Dr. Díaz prior to discharging the patient. However, the patient was told by staff that Dr. Díaz is not in house and patient became very upset and signed discharge papers that she does not agree with the discharge. I tried to talk with the patient that she can wait until Dr. Díaz sees her, which may be tomorrow. However, patient was very upset and did not even let me finish speaking and son stated, You are going in circles. She would like to go now. I spoke with Dr. Puri of GI and he confirmed that Dr. Díaz will see her today. I called patient and updated her that Dr. Díaz was indeed going to see her. She asked for a call from Dr. Díaz. Patient is discharged in stable condition. REVIEW OF SYSTEMS Per HPI and otherwise negative by full review of organ systems. ECOG PERFORMANCE STATUS: 1 PHYSICAL EXAMINATION: Vitals: BP 146/81 Pulse 84 Temp (Src) 97.7 (Temporal) Resp 18 Wt 148 lb 5.9 oz (67.3kg) SpO2 98% There is no height or weight on file to calculate BSA. Exam limited to gross visualization where appropriate. Gen.: This is an age-appropriate patient in no acute distress. Head: Appears atraumatic with no visible lesions. Eyes: Pupils equally round and reactive to light, extraocular muscles are intact. Jaundiced. Neck: Supple. Respiratory: Appears to be respiring comfortably. Neurologic: Nonfocal to gross visualization. Alert and oriented 3. Psychiatric: No evidence of inappropriate anxiety or depression. Skin: Visible areas of skin without rash, lesions, wounds or petechiae. ALLERGIES: ALLERGIES Allergen Reactions Penicillins Hives Sulfadiazine Hives MEDICATIONS: diazePAM (VALIUM) 2 mg tablet Take 2 mg by mouth every 6 hours as needed. losartan (COZAAR) 25 mg tablet Take 25 mg by mouth. metoprolol tartrate, short acting, (LOPRESSOR) 25 mg tablet Take 12.5 mg by mouth. hydrocortisone 2.5 % cream APPLY TOPICALLY TWICE DAILY NEEDED FOR SKIN IRRITATION FOR [address] (PROTONIX) 40 mg tablet Take 40 mg by mouth. (Patient not taking: Reported on 07/19/2024) LABORATORY VALUES: WBC (k/uL) Date Value 07/19/2024 16.86 (H) RBC (m/uL) Date Value 07/19/2024 3.62 (L) Hemoglobin (g/dL) Date Value 07/19/2024 10.8 (L) Hematocrit (%) Date Value 07/19/2024 34.4 (L) MCV (fL) Date Value 07/19/2024 95.0 MCH (pg) Date Value 07/19/2024 29.8 MCHC (g/dL) Date Value 07/19/2024 31.4 RDW-CV (%) Date Value 07/19/2024 19.1 (H) Platelet Count (k/uL) Date Value 07/19/2024 368 MPV (fL) Date Value 07/19/2024 12.6 Glucose (mg/dL) Date Value 07/19/2024 109 (H) BUN (mg/dL) Date Value 07/19/2024 14 Creatinine (mg/dL) Date Value 07/19/2024 0.73 Sodium (mmol/L) Date Value 07/19/2024 137 Potassium (mmol/L) Date Value 07/19/2024 3.6 (L) Chloride (mmol/L) Date Value 07/19/2024 101 CO2 (mmol/L) Date Value 07/19/2024 24 Protein, Total (g/dL) Date Value 07/19/2024 6.1 (L) Albumin (g/dL) Date Value 07/19/2024 3.1 (L) Calcium, Total (mg/dL) Date Value 07/19/2024 8.7 Alkaline Phosphatase (U/L) Date Value 07/19/2024 1,130 (H) Bilirubin, Total (mg/dL) Date Value 07/19/2024 4.2 (H) AST (U/L) Date Value 07/19/2024 125 (H) ALT (U/L) Date Value 07/19/2024 56 (H) DIAGNOSIS: (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) Plan: CARCINOEMBRYONIC ANTIGEN, COMPLETE BLOOD COUNT AND DIFFERENTIAL, COMPREHENSIVE METABOLIC PANEL, CA 19-9 (R79.89) Other specified abnormal findings of blood chemistry Plan: CARCINOEMBRYONIC ANTIGEN PAST MEDICAL HISTORY Diagnosis Date ANDRES (generalized anxiety disorder) High risk medication use Hypercholesterolemia Hypertension Obstructive jaundice Primary adenocarcinoma of liver (HCC) Tubulovillous adenoma of rectum PAST SURGICAL HISTORY Procedure Laterality Date BILIARY STENT Social History Tobacco Use Smoking status: Never Smokeless tobacco: Never Vaping Use Vaping status: Never Used Substance Use Topics Alcohol use: Not Currently Comment: occasionally Drug use: Never FAMILY HISTORY Problem Relation Age of Onset Melanoma Mother Heart disease Father No Known Problems Sister No Known Problems Maternal Grandmother No Known Problems Maternal Grandfather Diabetes Paternal Grandmother Diabetes Son type 1 Coronary Artery Disease Son Hypertension Son Diabetes Son type 2 Coronary Artery Disease Son Hypertension Son I spent a total of 60 minutes on the date of the service which included preparing to see the patient, [id number] patient care, completing clinical documentation, obtaining and/or reviewing separately obtained history, performing a medically appropriate examination, counseling and educating the patient/family/caregiver, ordering medications, tests, or procedures, independently interpreting results (not separately reported), communicating results to the patient/family/caregiver, and care coordination (not separately reported). Reuben Angela MD, CPE Hematology and Oncology Services Provided at: [facility], [place], [place] Scribe Attestation: This note was scribed by Shari Dmuont on July 19, 2024 under the direction and supervision of Dr. Reuben Angela. I attest that all of the information documented is correct to the best of my knowledge. Provider Attestation: I, Reuben Angela MD, attest that all information documented by the above scribe is correct, and was supervised by me and under my direction. CC: Mayito Costello DO [address] [facility] [address] Bradley Díaz MD documented in this encounter 07-19-2024 Note HNO ID: [id number] Author: REUBEN ANGELA MD Service: ? Author Type: Physician Type: Progress Notes Filed: 07/21/2024 15:47 Note Text: NAME: Jenna Kumar NO.: [id number] DATE OF SERVICE: July 19, 2024 ([place]) Referring Provider: Mayito Costello DO Consultation requested by Dr. Costello for an opinion regarding Ms. Jenna Kumar, and my final recommendations will be communicated back to the requesting physician by way of shared medical record or letter via US mail. Additional Clinicians involved in Jenna Kumar's care: Bradley Díaz DIAGNOSIS: Metastatic adenocarcinoma of liver. ASSESSMENT: 79 year old woman with metastatic adenocarcinoma of liver of unclear etiology. She had a rectal mass that was not malignant on biopsy but is still having some pain and bleeding from this. She presented with obstructive jaundice. And workup determined + adenocarcinoma of liver on EUS guided biopsy of liver mass. Hepatic duct brushing was suspicious for malignancy but non-diagnostic. 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 Will obtain PET CT to help direct additional workup. Aside from persisting jaundice, she has a very well preserved functional status and appears younger than stated age. PLAN: Labs drawn today Will present case at Tumor Board on 07/25/2024 PET/CT prior to Tumor Board Labs for [facility] same day Virtual visit in 2 weeks HPI: CASE HISTORY: Reverse Chronological Order 07/11/2024 - Total Bilirubin: 5.5, Alk Phos: 753, AST: 88, ALT: 61, Total Protein: 4.8, Albumin: 2.4 07/08/2023 - Colonoscopy: A. Colon, rectal mass, biopsy: Tubular adenoma with focal high grade dysplasia B. Colon, rectal mass #2, biopsy: Tubular adenoma 07/04/2024 - CEA, CA 19-9, AND AFP: Normal 07/02/2024 - EGD: Small duodenal ulcer 07/01/2024 - CT Head/Brain AND A/P: Head/Brain: No acute intracranial process is identified. A/P: Interval placement of internal biliary stents which extend into the left hepatic lobe with associated decompression of the previously dilated intrahepatic bile ducts within the left hepatic lobe. Persistently dilated intrahepatic bile ducts within the right hepatic lobe. Ill-defined heterogenous mass within hepatic segments 4A and 4B measuring 5.2 x 4.8 cm is again noted. Heterogeneously enhancing rectal mass is again identified which is not well assessed on this examination. Recommend correlation with digital rectal examination. Stable bilateral renal cysts. 07/01/2024 - Total Bilirubin: 10.9, Direct Bilirubin: 9.2, Alk Phos: 821, AST: 204, ALT: 269, Total Protein: 4.6, Albumin: 1.7 07/01/2024-07/11/2024 - ER at [facility] after a fall due to lightheadedness, dizziness, and hypotension - transferred and admitted at [facility] for GI bleed 06/28/2024 - ERCP AND Sigmoidoscopy: Dr. Bradley Díaz at [facility] High grade intrahepatic duct mass/stricture, large left hepatic mass, common hepatic duct mass Sphincterotomy, 2 intrahepatic duct stents placed Cytology: A. Hepatic duct, brushing: Suspicious for malignancy B. Lymph node, paraduodenal, EUS-guided fine needle aspiration: Atypical cells present C. Liver, EUS-guided fine needle aspiration: Adenocarcinoma Addendum: Immunohistochemical stains were performed with adequate controls. The tumor cells in part C (liver) are strongly positive for CK7. The tumor cells are negative for CK20 and CDX-2. The immunohistochemical profile does not support a metastatic lesion from the colon. The positive CK7 staining, while not specific, could be compatible with cholangiocarcinoma in the correct clinical context. Clinical correlation is recommended. Histology - Tissue Exam: A. Common bile duct, biopsy: Adenocarcinoma B. Rectal mass, biopsy: Superficial fragments of tubulovillous adenoma No invasive neoplasm or high-grade dysplasia identified Comment: The specimen in part B may not be entirely claims customer service representative of a larger mass. 06/21/2024 - CT A/P: A 4.6 x 3.4 cm il-defined hypoenhancing region in segment 4A and B and 8, suspicious for primary hepatic neoplasm such as cholangiocarcinoma or metastasis. There appears capsule retraction of the segment 8 and 4A. Liver protocol MRI with contrast, including diffusion weighted images and MRCP is recommended for better evaluation. Intraluminal polypoid lower rectal mass from 3-11:00 Trendelenburg position, highly suspicious for rectal adenocarcinoma. Rectal protocol pelvic MRI with contrast and/or PET/CT is recommended for better evaluation. 06/21/2024 - CXR: Chest radiograph shows nothing to suggest acute findings 06/18/2024 - Total Bilirubin: 12.9, Alk Phos: 1074, AST: 273, ALT: 499, Total Protein: 6.5, Albumin: 2.8 Late 05/2024 - Onset of jaundice, dark urine, chang colored s (more content not included)... [facility] 07-18-2024 Note Follow up call made. Patient reports that she is feeling improvement in symptoms, although she is having alternating stools, otherwise denies complaints. [facility] 07-15-2024 Note [facility] 07-12-2024 Note XR T [facility] 07-11-2024 Note [facility] 07-11-2024 Note [facility] 07-11-2024 Note [facility] 07-11-2024 Note [facility] 07-11-2024 Note [facility] 07-10-2024 Note [facility] 07-10-2024 Note [facility] 07-10-2024 Note [facility] 07-10-2024 Note [facility] 07-10-2024 Note [facility] 07-10-2024 Note [facility] 07-10-2024 Note [facility] 07-09-2024 Note [facility] 07-09-2024 Note [facility] 07-09-2024 Note [facility] 07-09-2024 Note [facility] 07-09-2024 Note [facility] 07-09-2024 Note [facility] 07-08-2024 Note [facility] 07-08-2024 Note [facility] 07-08-2024 Note [facility] 07-08-2024 Note [facility] 07-08-2024 Note Case reviewed at con sensus conference with agreement of the diagnosis. [facility] Comment on above: Performed By: #### L [id number] ####[facility] [place] [address] 07-08-2024 Note [facility] 07-08-2024 Note [facility] 07-07-2024 Note [facility] 07-07-2024 Note [facility] 07-07-2024 Note [facility] 07-06-2024 Note [facility] 07-06-2024 Note [facility] 07-06-2024 Note [facility] 07-05-2024 Note [facility] 07-05-2024 Note [facility] 07-05-2024 Note Met with pt to rosie w up with SNF choice. Pt said she would only consider [facility]. Sent referral. Pt has no preference for [facility], sent referral to Jabari Gomez [facility]. Await replies. Pt is having a colonoscopy on Monday. [facility] 07-05-2024 Note [facility] 07-05-2024 Note [facility] 07-05-2024 Note [facility] 07-04-2024 Note [facility] 07-04-2024 Note [facility] 07-04-2024 Note [facility] 07-04-2024 Note [facility] 07-03-2024 Note [facility] 07-03-2024 Note [facility] 07-03-2024 Note [facility] 07-03-2024 Note [facility] 07-03-2024 Note EGD/EUS/ERCP/flex si gmoidoscopy procedure notes and pathology results faxed to referring office of Dr. Mayito Costello @ [phone] [facility] 07-02-2024 Note [facility] 07-02-2024 Note [facility] 07-02-2024 Note Monitor and replace electrolytes will recheck BMP and follow [facility] 07-02-2024 Note Since on beta-blocke r and history of arrhythmia IV metoprolol since n.p.o. keep potassium around 4 magnesium around 2 [facility] 07-02-2024 Note As above [facility] 07-02-2024 Note N.p.o. hemoglobin he matocrit every 12 hours IV Protonix GI to see patient [facility] 06-28-2024 Note [facility] 06-20-2024 Evaluation note Diagnosis Onset Date Resolution ANDRES (generalized anxiety disorder) acute June 20, 2024 10:50am Hypertension acute June 10:50am Obstructive jaundice acute 2024 10:50am Pruritus acute June 20, 2024 10:50am ANDRES (generalized anxiety disorder) acute June 24, 2024 4:17pm Hypertension acute June 4:17pm Liver mass acute June 24, 2024 4:17pm Pruritus acute June 24, 2024 4:17pm Rectal mass acute June 4:17pm [facility] Work Phone: 1(952) 933-201902-06-2025 Evaluation note* Diagnosis Onset Date Resolution Status Admit Date ANDRES (generalized anxiety disorder) acute June 20 10:50am Hypertension acute June 10:50am Obstructive jaundice acute 2024 10:50am Pruritus acute June 20, 2024 10:50am ANDRES (generalized anxiety disorder) acute June 24 4:17pm Hypertension acute June 4:17pm Pruritus acute June 24, 2024 4:17pm Rectal mass acute June 4:17pm Liver mass deleted June 24, 2024 4:17pm Acute blood loss anemia acute M arch 2024 1:45pm Adenocarcinoma of liver acute [facility] 2024 1:45pm ANDRES (generalized anxiety disorder) acute July 16, 2024 1:45pm Hepatocellular carcinoma acute July 16, 2024 1:45pm Hypertension acute July 16, 2 025 1:45pm Rectal mass acute July 16 1:45pm [facility] Work Phone: 1(128) 926-854611-20-2024 Evaluation note* Diagnosis Onset Date Resolution Status Admit Date ANDRES (generalized anxiety disorder) a cute April 03, 2024 3:35pm Hypercholesterolemia acute 2023 3:35pm Hypertension acute March 3:35pm Mammogram declined acute Novemb er 2023 3:35pm Medicare annual wellness vis it, subsequent acute April 03, 2 024 3:35pm [facility] Work Phone: 1(243) 111-468411-20-2024 Evaluation note* Diagnosis Onset Date Resolution Status Admit Date ANDRES (generalized anxiety disorder) a cute April 03, 2024 3:35pm Hypercholesterolemia acute 2023 3:35pm Hypertension acute March 3:35pm Mammogram declined acute Novemb er 2023 3:35pm Medicare annual wellness vis it, subsequent acute April 03, 2 024 3:35pm ANDRES (generalized anxiety disorder) a cutJune 20, 2024 10:50am Hypertension acute June 10:50am Obstructive jaundice acute ua2024 10:50am Pruritus acute June 20, 2024 10:50am ANDRES (generalized anxiety disorder) a cutJune 24, 2024 4:17pm Hypertension acute June 4:17pm Liver mass acute June 24, 2024 4:17pm Pruritus acute June 24, 2024 4:17pm Rectal mass acute June 4:17pm [facility] Work Phone: Evaluation noteNo [employer] [employer] Other Evaluation note* Diagnosis Onset Date Resolution Status Admit Date ANDRES (generalized anxiety disorder) a cute April 03, 2024 3:35pm Hypercholesterolemia acute Nove mber 2023 3:35pm Hypertension acute March 3:35pm Mammogram declined acute Novemb er 2023 3:35pm Medicare annual wellness vis it, subsequent acute April 03, 2 024 3:35pm [facility] Work Phone: Evaluation note* Diagnosis 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, part unspecified site Other specified abnormal findings of blood chemistry [facility] [place]* Diagnosis Cholangiocarcinoma of biliary tract (HCC) Malignant neoplasm of biliary tract, part unspecified site Other specified abnormal findings of blood chemistry Cholangiocarcinoma (HCC) Malignant neoplasm of intrahepatic bile ducts documented in this encounter [facility] [place] [facility]* Diagnosis Cholangiocarcinoma (HCC)- Primary Malignant neoplasm of intrahepatic bile ducts documented in this encounter [facility] note* Diagnosis 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 (HCC)- Primary Rectal mass Other symptoms involving digestive system Mass of spine Malignant obstructive jaundice (HCC) Other specified disorders of biliary tract documented in this encounter [facility] general Narrative - Reported* Type Description Date Medical History HTN Medical History ANDRES Medical History LBBB Medical History HLD Surgical History Hydatidiform mole [employer] Other Summary Purpose Family History No Family History Records FoundNo Family History Records FoundNo Family History Records FoundNo Family History Records Found Advance Directives No Advanced Directives Records Found Advance Directive Response Recorded Date/ Time Advance [...] March 12:00pm Wellness April 03, 2024 3:35pm Chief Complaint Admit Date Wellness April 03, 2024 3:35pm not feeling well June 20, 2024 1 0:50am discuss test results June 24, 2024 4:17pm Reason for Visit Admit Date ANDRES (generalized anxiety disorder) Novem 2023 3:35pm Hypercholesterolemia April 03, 2024 3:35pm Hypertension April 03, 2024 3:35pm Mammogram declined April 03, 2024 3:35pm Medicare annual wellness visit, katerinae nt April 03, 2024 3:35pm ANDRES (generalized anxiety disorder) u 2024 10:50am Hypertension June 20, 2024 1 0:50am Obstructive jaundice June 20, 2024 10:50am Pruritus June 20, 2024 1 0:50am ANDRES (generalized anxiety disorder) u 2024 4:17pm Hypertension June 24, 2024 4:17pm Liver mass June 24, 2024 4:17pm Pruritus June 24, 2024 4:17pm Rectal mass June 24, 2024 4:17pm Chief Complaint Admit Date not feeling well June 20, 2024 1 0:50am discuss test results June 24, 2024 4:17pm Unknown July 01, 2024 1:54pm Reason for Visit Admit Date ANDRES (generalized anxiety disorder) 2024 10:50am Hypertension June 20, 2024 1 0:50am Obstructive jaundice June 20, 2024 10:50am Pruritus June 20, 2024 1 0:50am ANDRES (generalized anxiety disorder) 2024 4:17pm Hypertension June 24, 2024 4:17pm Liver mass June 24, 2024 4:17pm Pruritus June 24, 2024 4:17pm Rectal mass June 24, 2024 4:17pm Chief Complaint Admit Date not feeling well June 20, 2024 1 0:50am discuss test results June 24, 2024 4:17pm Unknown July 01, 2024 1:54pm Amb Documentation July 15, 2024 9:21 am [facility] f/u July 16, 2024 1:45 pm Reason for Visit Admit Date ANDRES (generalized anxiety disorder) u 2024 10:50am Hypertension June 20, 2024 1 0:50am Obstructive jaundice June 20, 2024 10:50am Pruritus June 20, 2024 1 0:50am ANDRES (generalized anxiety disorder) Febru favian 2024 4:17pm Hypertension June 24, 2024 4:17pm Pruritus June 24, 2024 4:17pm Rectal mass June 24, 2024 4:17pm Liver mass June 24, 2024 4:17pm Acute blood loss anemia July 16, 2024 1:45pm Adenocarcinoma of liver July 16, 2024 1:45pm ANDRES (generalized anxiety disorder) July 16, 2024 1:45pm Hepatocellular carcinoma July 16, 2024 1:45pm Hypertension July 16, 2024 1:45 pm Rectal mass July 16, 2024 1:45 pm Additional Source Comments INFORMATION SOURCE (unrecogn ized section and content) DATE CREATED AUTHOR 05/28/2021 [facility] DATE CREATED AUTHOR AUTHOR'S ORGANIZ ATION 07/06/2024 [facility] DATE CREATED AUTHOR AUTHOR'S ORGANIZ ATION 08/01/2024 [facility] DATE CREATED AUTHOR AUTHOR'S ORGANIZ ATION 08/11/2024 [facility] REASON FOR VISIT (unrecogniz ed section and content) Reason Comments Consult Reason Comments Radiology NM Specialty Diagnoses / Procedures Referred By Contac t Referred To Contact MOLECULAR & FUNCTIONAL IMAGING Diagnoses Cholangiocarcinoma of biliary tract (HCC) Other specified abnormal findings of blood chemistry Procedures NM PET/CT SKULL-THIGH INITIAL PET IMAGING CT ATTENUATION SKULL BASE MID-THIGH Reuben Angela MD [address] [place] [address] [place] [address] Phone: tel: fax: Molecular Imaging [address] [place] [address] Phone: tel: Referral ID Status Reason Start Date Expiration Date V isits Requested Visits Authorized [id number] Closed Auto-Generate d Referral 07/19/2024 08/18/2025 1 1 Reason Comments Orders Reason Comments Established Patient Care Teams (unrecognized sec tion and content) [...] 2024 End: June 20, 2024 Team Status: Inactive Member Role Status Dates Mayito Costello , Primary Care Provide r, Attending Provider Active Start: June 24, 2024 End: June 24, 2024 Team Status: Active Member Role Status Dates Mayito Costello DO Primary Care Provider Active Start: July 01, 2024 Saad Hagen , Attending Provider Active Start : July 01, 2024 Team Status: Inactive Member Role Status Dates Saad Hagen , Attending Provider Active Start : July 01, 2024 End: July 01, 2024 Team Status: Active Member Role Status Dates Mayito Costello DO Attending Provider Active Sta rt: July 02, 2024 Team Status: Active Member Role Status Dates Rosalie Phillips CMA Attending Provider Active Start: July 15, 2024 Team Status: Inactive Member Role Status Dates Mayito Costello DO Primary Care Provide r, Attending Provider Active Start: July 16, 2024 End: July 16, 2024 Team Status: Inactive Member Role Status Dates Mayito Costello , Primary Care Provide r, Attending Provider Active Start: April 03, 2024 End: April 03, 2024 Team Status: Active Member Role Status Dates Mayito Costello DO Primary Care Provide r, Attending Provider Active Start: March 20, 2024 Political Organizer Relationship Specialty Start Date End Date Mayito Costello DO [address] [id number] PCP - General Internal Medicine 07/17/24 Political Organizer Relationship Specialty Start Date End Date Mayito Costello DO [address] [id number] PCP - General Internal Medicine 07/17/24 Political Organizer Relationship Specialty Start Date End Date Mayito Costello DO [address] [place] [address] PCP - General Internal Medicine 07/17/24 Political Organizer Relationship Specialty Start Date End Date Mayito Costello DO [address] [id number] PCP - General Internal Medicine 07/17/24 Political Organizer Relationship Specialty Start Date End Date Mayito Costello DO [address] [place] [address] PCP - General Internal Medicine 07/17/24 Political Organizer Relationship Specialty Start Date End Date Mayito Costello DO [address] [place] [address] PCP - General Internal Medicine 07/17/24 Goals (unrecognized section and content) Goals may be documented in a n alternate section Source Comments (unrecognize d section and content) In the event this informatio n is protected by the Federal Confidentiality of Alcohol and Drug Abuse Patient Records regulations: The Federal rules restrict any use of the information to criminally investigate or prosecute any alcohol or drug abuse patient.In the event this information is protected by the Federal Confidentiality of Alcohol and Drug Abuse Patient Records regulations: The Federal rules restrict any use of the information to criminally investigate or prosecute any alcohol or drug abuse patient.In the event this information is protected by the Federal Confidentiality of Alcohol and Drug Abuse Patient Records regulations: The Federal rules restrict any use of the information to criminally investigate or prosecute any alcohol or drug abuse patient.In the event this information is protected by the Federal Confidentiality of Alcohol and Drug Abuse Patient Records regulations: The Federal rules restrict any use of the information to criminally investigate or prosecute any alcohol or drug abuse patient.In the event this information is protected by the Federal Confidentiality of Alcohol and Drug Abuse Patient Records regulations: The Federal rules restrict any use of the information to criminally investigate or prosecute any alcohol or drug abuse patient.In the event this information is protected by the Federal Confidentiality of Alcohol and Drug Abuse Patient Records regulations: The Federal rules restrict any use of the information to criminally investigate or prosecute any alcohol or drug abuse patient. FOR RECORDS PERTAINING TO PATIENTS WHO ARE [...] BE BASED ON THE PRIMARY CLINICAL RECORDS. [employer] [facility]. provides no warranty or guarantee of the accuracy or completeness of information in this document.
[2024-08-12 07:44] LABS: Estimated GFR (African America >60 (>=60 mL/min/1.73m^2); Estimated GFR (Non-African Ame 57 (>=60 mL/min/1.73m^2)
== END 2024-08-12 07:27 | disposition home or self-care (01) ==
LOC: LAB 07:26
PROVIDERS: PCP Internal Medicine; Visit Provider Internal Medicine Hematology & Oncology
DX: C22.9 Malignant neoplasm of liver, not specified as primary or secondary (principal); K62.89 Other specified diseases of anus and rectum
CPT/HCPCS: 36415; 72157; 72158; 82565; A9575

== ENCOUNTER 2024-08-27 12:48 | Outpatient (OUT) | payer MEDICARE, SELFPAY ==
--- NOTE | 2024-08-27 12:52 | MR_ITS ---
The [address] [address] Patient Name: JENNA OSWALD MRN: [id number] date: 1945 Sex: F Assigned Patient Location: MRI Current Patient Location: Accession/Order Number: [id number] Exam Date: 09/02/2024 15:30 Report Date: 09/02/2024 15:42 At the request of: DIANA ANGELA Procedure: MR abdomen wo/w con MRI the abdomen with and without contrast Technique routine with 6 cc of contrast administered. 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 Dynamic scanning limited secondary patient talking. There is also artifact likely related to history of biliary stent placement. In region of the martín hepatis there is a mass in region of martín hepatis measuring 6.8 x 5.4 cm. This is intervally enlarged compared to the CT examination 07/01/2024. This measured 5.2 x 4.8 cm. Mass identified in hepatic segments 4A4B. There is also history of a rectal mass. This was not imaged. With this Limited exam is no additional regions of hepatic lesion identified. Spleen unremarkable. No obvious visible pancreatic abnormality seen. The head region of pancreas limited from the artifact. No adrenal lesions present. Bilateral renal cysts identified. There is no hydronephrosis. There is no pleural effusion. There is no visible adenopathy. There is no ascites. Gallbladder not well seen. No gross abnormality identified. Mild Intrahepatic biliary ductal dilatation redemonstrated. MR/MR abdomen wo/w con IMPRESSION: Limitation of the examination as stated above including patient motion during dynamic phase and extensive artifact from the presumable biliary stent. There is redemonstration of the mass in region of the martín hepatis of the liver. There appears be interval enlargement compared to the CT examination. The maximal measurement 6.8 cm. No other hepatic lesion identified. There is no obvious adenopathy. No other sites of metastatic disease. Impression dictated by: Saad Smith M.D.09/02/2024 3:42 PM Dictation Location: [place] [address] Electronically authenticated by: [id number] Y Date: 09/02/2024 15:42
== END 2024-08-27 12:49 | disposition home or self-care (01) ==
LOC: MRI 12:48
PROVIDERS: PCP Internal Medicine; Visit Provider Internal Medicine Hematology & Oncology
DX: C22.9 Malignant neoplasm of liver, not specified as primary or secondary (principal); K83.1 Obstruction of bile duct; C80.1 Malignant (primary) neoplasm, unspecified; C22.1 Intrahepatic bile duct carcinoma
CPT/HCPCS: 74183; A9581

== ENCOUNTER 2024-10-05 21:58 | Emergency (ER) | payer MEDICARE, SELFPAY ==
--- OUTSIDE RECORDS SUMMARY | 2024-09-20 11:54 | XMS_ITS ---
Author Name Auto Generated Organization OHIP Support Name Relationship Address Phone MINDI HANCOCK Next of Kin Unknown [phone] RENWAND, KANDIS Next of Kin Unknown [phone] RENWAND, MINDI Next of Kin Unknown [phone] RENWAND, KANDIS Next of Kin Unknown [phone] RENWAND, MINDI Next of Kin Unknown [phone] RENWAND, KANDIS Next of Kin Unknown [phone] RENWAND, MINDI Next of Kin Unknown [phone] RENWAND, KANDIS Next of Kin Unknown [phone] RENWAND, MINDI Next of Kin Unknown [phone] RENWAND, KANDIS Next of Kin Unknown [phone] RENWAND, MINDI Next of Kin Unknown [phone] RENWAND, KANDIS Next of Kin Unknown [phone] RENWAND, MINDI Next of Kin Unknown [phone] RENWAND, KANDIS Next of Kin Unknown [phone] RENWAND, MINDI Next of Kin Unknown [phone] RENWAND, KANDIS Next of Kin Unknown [phone] RENWAND, MINDI Next of Kin Unknown [phone] RENWAND, KANDIS Next of Kin Unknown [phone] Renwand, Kandis Next of Kin Unknown [phone] Renwand, Jeevan Next of Kin Unknown [phone] RENWAND, MINDI Next of Kin Unknown [phone] RENJOE, KANDIS Next of Kin Unknown [phone] RENWAND, MINDI Next of Kin Unknown [phone] KANDIS HANCOCK Next of Kin Unknown [phone] Care Team Providers Care Compression Molding Machine Operator Name Role Phone NAWRAS, ALI Referring Unavailable NAWRAS, ALI Attending Unavailable DAIGLE, BASMAH Referring Unavailable ENIX, LUCY Referring Unavailable ASUNCIONREECE GOETZ Attending Unavailable PAY, SAAD Referring Unavailable HORANI, CHIARA Admitting Unavailable COLLIER, ALBERT BACAL Attending Unavailable NAWRAS, ALI Admitting Unavailable NAWRAS, ALI Attending Unavailable BALL, MAYITO Referring Unavailable NAWRAS, ALI Referring Unavailable NAWRAS, ALI Admitting Unavailable NAWRAS, ALI Attending Unavailable BALL, MAYITO Referring Unavailable NAWRAS, ALI Referring Unavailable HAMOUDA, NATHALIA M Referring Unavailable HAMOUDA, NATHALIA M Referring Unavailable [facility] Referring Unavailable Pay, Saad Attending Unavailable Pay, Saad Admitting Unavailable KESHINRO, AJARATU Attending Unavailable KESHINRO, AJARATU Admitting Unavailable BALL, MAYITO E Primary Care Unavailable BALL, MAYITO E Primary Care Unavailable BALL, MAYITO E Referring Unavailable ABHYANKAR, REUBEN Attending Unavailable ABHYANKAR, REUBEN Referring Unavailable BALL, MAYITO E Primary Care Unavailable VENNEPUREDDY, REN Referring Unavailable BALL, MAYITO E Primary Care Unavailable ABHYANKAR, REUBEN Attending Unavailable ABHYANKAR, REUBEN Referring Unavailable ABHYANKAR, REUBEN Attending Unavailable BALL, MAYITO E Primary Care Unavailable KESHINRO, AJARATU Attending Unavailable BALL, MAYITO E Primary Care Unavailable ABHYANKAR, REUBEN Referring Unavailable BALL, MAYITO E Primary Care Unavailable NAFFOHUGO REYES Attending Unavailable ABHYANKAR, REUBEN Referring Unavailable KESHINRO, AJARATU Referring Unavailable BALL, MAYITO E Primary Care Unavailable BALL, MAYITO E Primary Care Unavailable ABHYANKAR, REUBEN Referring Unavailable PROBLEMS DATE TYPE CONDITION / CODE ATTENDING STATUS [facility] 09/20/2024 Active Post-op pain / G89.18(ICD-10) LUIS MARIA LUISA [facility] 09/20/2024 Active Rectal polyp / K62.1(ICD-10) [facility] 08/04/2024 Active 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 (HCC) / C22.9(ICD-10) Active [facility] 09/12/2024 Active Anemia, unspecif ied type / D64.9(ICD-10) NA Active [facility] 09/12/2024 Active LBBB (left bundl e branch block) / I44.7(ICD-10) NA Active [facility] 09/12/2024 Active Primary hyperten bryson / I10(ICD-10) NA Active [facility] 09/12/2024 Active OK (generalized anxiety disorder) / F41.1(ICD-10) NA Active [facility] 09/12/2024 Active Preoperative exa mination / Z01.818(ICD-10) NA Active [facility] 09/09/2024 Active Malignant neopla sm of liver, unspecified liver malignancy type (HCC) / C22.9(ICD-10) HUGO TAYLOR Active [facility] 09/05/2024 Active Rectal mass / K62.89(ICD-10) OLIVIA DUARTE Active [facility] 08/13/2024 Admitting Diagnosis Obstruction of bile duct / K83.1(ICD-10) BRADLEY DÍAZ Active [facility] 08/13/2024 Admitting Diagnosis Liver disease, unspecified / K76.9(ICD-10) BRADLEY DÍAZ Active [facility] 07/23/2024 Active 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) NA Active [facility] 07/23/2024 Active Other specified abnormal findings of blood chemistry / R79.89(ICD-10) NA Active [facility] 07/02/2024 Admitting Diagnosis Unspecified jaundice / R17(ICD-10) ALBERT COLLIER Active [facility] 07/02/2024 Admitting Diagnosis Hypokalemia / E87.6(ICD-10) ALBERT COLLIER Active [facility] 07/02/2024 Admitting Diagnosis Essential (primary) hypertension / I10(ICD-10) ALBERT COLLIER Active [facility] 07/01/2024 Admitting Diagnosis Gastrointestinal hemorrhage, unspecified / K92.2(ICD-10) COLLIERALBERT [facility] 07/01/2024 Admitting Diagnosis Duodenitis with bleeding / K29.81(ICD-10) [facility] 07/01/2024 Admitting Diagnosis Chronic or unspecified gastric ulcer with hemorrhage / K25.4(ICD-10) 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24 Admitting Diagnosis Other specified diseases of anus and rectum / K62.89(ICD-10) [facility] 07/01/2024 Admitting Diagnosis Bacteremia / R78.81(ICD-10) [facility] 07/01/2024 Admitting Diagnosis Unspecified Escherichia coli (E. coli) as the cause of diseases classified elsewhere / B96.20(ICD-10) [facility]/01/2024 Admitting Diagnosis Urticaria, unspecified / L50.9(ICD-10) [facility] 06/28/2024 Admitting Diagnosis Disease of anus and rectum, unspecified / K62.9(ICD-10) BRADLEY DÍAZ [facility] PROCEDURES No Procedure Records Found RESULTS 36 Observed: 10/03/2024 11:46 AM Status: COMPLETED Source: [facility] Patient is scheduled for a r epeat ERCP with Dr. Bradley Díaz at [facility] on November arriving at 1200 for a 1400 procedure to entrance B;PAT call scheduled for 10/16/24 in the am;case#[id number]. TELEPHONE Observed: 10/03/2024 12:00 AM Status: COMPLETED Source: [facility] [id number] Jenna Kumar 0 1945 F Date Provider Department [facility] No family history on file 36 Observed: 09/27/2024 3:28 PM Status: COMPLETED Source: [facility] Called patient regarding augie eduling another ERCP for a stent exchange with Dr. Bradley Díaz. She states she is waiting to hear back from [facility] in regards to following with there physicians. She will call me back next week to see what the plan is going forward. TELEPHONE Observed: 09/27/2024 12:00 AM Status: COMPLETED Source: [facility] [id number] Jenna Kumar 0 1945 F Date Provider Department [place] 09[facility]2024 [facility] No family history on file CNPN Observed: 09/26/2024 12:00 AM Status: COMPLETED Source: [facility] Telephone ([facility]) JENNA KUMAR ([id number]) 1945 F Date Time Provider Department 09/26/24 OLIVIA DUARTE [facility] During your visit today, we recorded the following information about you: Olivia Duarte MD 09/26/2024 12:[address] reviewed with patient- no evidence of rectal cancer. She will follow up with [facility] for next steps Allergies As of Date: 09/26/2024 Noted Allergy Reaction PENICILLINS 06/28/2024 4 - Hives SULFADIAZINE 06/28/2024 4 - Hives Date Reviewed: 09/20/2024 Reviewed by: Kiana Arora RN - Fully Assessed Prescriptions as of 09/26/2024 - oxyCODONE IR (ROXICODONE) 5 mg immediate release tablet Take 1 tablet by mouth every 6 hours as needed for pain for up to 7 days. - ciprofloxacin HCl (CIPRO) 500 mg tablet Take 1 tablet by mouth two times a day for 7 days. - metroNIDAZOLE (FLAGYL) 500 mg tablet Take 1 tablet by mouth three times a day for 7 days. - ondansetron (ZOFRAN) 8 mg tablet Take 1 tablet by mouth every 8 hours as needed for nausea/vomiting for up to 180 doses. - diazePAM (VALIUM) 2 mg tablet Take 2 mg by mouth every 6 hours as needed. - hydrocortisone 2.5 % cream - losartan (COZAAR) 25 mg tablet Take 25 mg by mouth. - metoprolol tartrate, short acting, (LOPRESSOR) 25 mg tablet Take 12.5 mg by mouth two times a day. Problem List As Of Date 09/26/2024 Noted Resolved 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 (H*08/04/2024 OK (generalized anxiety disorder) [F41.1] Hypertension [I10] LBBB (left bundle branch block) [I44.7] Anemia [D64.9] PVC's (premature ventricular contractions) [I49*09/12/2024 Encounter Status:Closed by OLIVIA DUARTE on 09/26/24 ANES POSTPROC EVAL Observed: 09/22/2024 8:01 AM Status: COMPLETED Source: [facility] ID: [id number] Author: YEE OLIVO MD Service: Critical Care Author Type: Physician Type: Anesthesia Postprocedure Evaluation Filed: 09/22/2024 08:01 Note Text: POST ANESTHESIA EVALUATION NOTE : 1945 Procedure Summary Date: 09/20/24 Room / Location: [facility] / [facility] OR Anesthesia Start: 1509 Anesthesia Stop: 1640 Procedures: EXCISE RECTAL TUMOR VIA TRANSANAL APPROACH (Anus) SIGMOIDOSCOPY FLEXIBLE (Colon Sigmoid) Diagnosis: Rectal polyp (Rectal polyp [K62.1]) Surgeons: Olivia Duarte MD Responsible Provider: Yee Olivo MD Anesthesia Type: general ASA Status: 3 Anesthesia Type: general Airway Type: LMA Last Vitals Vitals Value Taken Time BP 159/87 09/20/24 1800 Temp 36 ?C (96.8 ?F) 09/20/24 1800 HR SpO2 74 09/20/24 1759 Resp 18 09/20/24 1800 SpO2 98 % 09/20/24 1800 Vitals shown include unfiled device data. Post Anesthesia Patient Status Patient Evaluation: PACU. PACU/ICU Patient Condition: stable. Neurological Status: aware and responsive. Pulmonary Status: breathing comfortably on room air Airway Control: returned to baseline unsupported. Cardiovascular Status: stable. Pain Management: clinically adequate Postoperative Hydration: acceptable. Intraoperative Events: no significant anesthesia events Post Operative Nausea/Vomiting Status: no significant post operative nausea or vomiting Recommendation: continue current plan of care. Anesthesia Observations No Documentation SIGNATURE: Yee Olivo MD PATIENT NAME: Jenna Kumar DATE: September 22, 2024 TIME: 8:01 AM CSN: [id number] BRIEF OP NOT Observed: 09/20/2024 5:57 PM Status: COMPLETED [facility] [id number] Author: CINDA ABRAMS MD Service: Colorectal Author Type: Fellow Type: Brief Op Note Filed: 09/20/2024 18:02 Note Text: COLORECTAL SURGERY BRIEF OP NOTE LOG ID: [id number] Surgery/Procedure Date: 09/20/2024 Incision/Procedure Start Time: 3:20 PM Incision Close/Procedure End Time: 4:21 PM Surgeon(s) and Nursing Student(s): Surgeons and Role: * Olivia Duarte MD - Primary * Matt Bal MD - Resident - Assisting * Cinda Abrams MD - Fellow No Additional Staff Procedure(s): Procedure(s): EXCISE RECTAL TUMOR VIA TRANSANAL APPROACH SIGMOIDOSCOPY FLEXIBLE Perianal and pudendal nerve block Anesthesia: General Findings: rectal polyp extending from dentate line just above distal rectal valve, 75% circumference of rectum, sparing the left anterolateral aspect. Polyp is soft and mobile, without any area of ulceration or fixation to muscularis. Mucosal defect was closed with mucosal sleeve advancement Tubes/Drains: none Estimated Blood Loss: 20 mls Specimens: rectal polyp, piecemeal Wound Classification: Class 3, operative wound contaminated with anorectal wound Pre-Op/Pre-Procedure Diagnosis: Pre-Op Diagnosis Codes: * Rectal polyp [K62.1] Post-Op/Post-Procedure Diagnosis: Same SIGNATURE: Cinda Abrams MD PATIENT NAME: Jenna Kumar DATE: September 20, 2024 TIME: 5:57 PM PAGER/CONTACT #: kelly NURSING PROG Observed: 09/20/2024 5:49 PM Status: COMPLETED Source: [facility] ID: [id number] Author: MARGUERITE BERRY RN Service: Nursing Author Type: Registered Nurse Type: Nursing Progress Note Filed: 09/20/2024 17:49 Note Text: Sitz Bath Written by Hilary Encinas and Juan Alberto Hanson RN, BSN Medically Reviewed by Kiera Pride RNC-OB on March 03, 2015 Part 1 of 5: Overview What Is a Sitz Bath? A sitz bath is a warm, shallow bath that cleanses the perineum, which is the space between the rectum and the vulva or scrotum. A sitz bath can be used for everyday personal hygiene. It can also provide relief from pain or itching in the genital area. You can give yourself a sitz bath in your bathtub or with a plastic kit that fits over your toilet. This kit is a round, shallow basin that often comes with a plastic bag that has long tubing on the end. This bag can be filled with warm water and used to safely fill the bath via the tubing. The basin is slightly larger in size than a standard toilet bowl so it can be easily and securely placed underneath the toilet seat to allow you to remain seated while taking a sitz bath. The kit is available in most [employer] stores and pharmacies. Part 2 of 5: Uses When Is a Sitz Bath Used? A sitz bath doesn?t require a doctor?s prescription. Some people use sitz baths regularly as a way to cleanse the perineum. In addition to its use in cleansing, the sitz bath?s warm water increases blood flow to the perineal area. This can promote faster healing. A sitz bath also relieves itching, irritation, and minor pain. Common reasons why you might want to consider using a sitz bath include: You recently had surgery on the vulva or vagina. You?ve recently given . You recently had hemorrhoids surgically removed. You have discomfort from hemorrhoids. You have discomfort with bowel movements. Both children and adults can use sitz baths. Parents should always supervise their children during a sitz bath. Doctors sometimes prescribe medications or other additives to put in a sitz bath. An example is povidone-iodine, which has antibacterial properties. Adding table salt, vinegar, or baking soda to the water can create a soothing solution. You also may take a sitz bath using only warm water. Part 3 of 5: In the Bathtub How to Take a Sitz Bath in the Bathtub If you?re taking a sitz bath in the bathtub, the first step is to clean the tub. Mix 2 tablespoons of bleach with one-half gallon of water. Scrub the bathtub and rinse thoroughly. Next, fill the tub with 3 to 4 inches of water. The water should be warm, but not hot enough to cause david or discomfort. You can test the temperature of the water by placing a drop or two on your wrist. When you have found a comfortable temperature, add any substances your doctor recommended for the bath. Now, step into the tub and soak your perineum for 15 to 20 minutes. Bend your knees or, if possible, dangle your legs over the sides of the tub to keep them out of the water altogether. When you get out of the bathtub, gently pat yourself dry with a clean cotton towel. Don?t rub or scrub the perineum, as this may cause pain and irritation. Finish by rinsing the bathtub thoroughly. Part 4 of 5: Sitz Bath Kit How to Take a Sitz Bath Using a Kit A plastic sitz bath kit fits over the toilet. Rinse the bath with clean water before using it. Then, add very warm (but not hot) water along with any medications or solutions recommended by your doctor. Place the sitz bath into the open toilet. Test it by trying to move it [id number] to ensure it will stay in place and won?t shift. You can pour warm water in before you sit down, or you can use the plastic bag and tubing to fill the tub with water after you?ve sat down. The water should be deep enough so that it covers your perineum. Soak for 15 to 20 minutes. If you used the plastic bag, you can add warm water as the original water cools. Most sitz baths have a vent that prevents water from overflowing. The water conveniently overflows into the toilet and can be flushed. When you?re finished, stand up and pat the area dry with a clean cotton towel. Avoid rubbing or scrubbing the area when you do this. Get the sitz bath ready for its next use by cleaning it thoroughly. Many kits come with cleaning instructions and solutions. If your kit doesn?t come with cleaning instructions and a solution, you can clean your sitz bath by scrubbing it with 2 tablespoons of bleach mixed with one-half gallon of hot water. Once you have scrubbed your bath, rinse it thoroughly. Although there are no guidelines for when to replace your sitz bath, always check it for signs of cracking or weakened areas before and after use. Part 5 of 5: Risks and Aftercare Risk Factors and Aftercare A sitz bath carries very little risk of harm because it?s a noninvasive treatment. The most common adverse event associated with sitz baths is infection of the perineum, but this rarely occurs. This may happen if you are caring for a surgical wound and don?t clean the tub or plastic bath thoroughly. Stop taking sitz baths and contact your doctor if pain or itching worsens or if your perineum becomes red and puffy. If sitz baths bring you relief, your doctor will probably recommend taking three or four per day until the source of the itching, irritation, or pain is healed. After you?ve had a sitz bath, you may immediately return to normal activities unless your doctor has told you otherwise. NURSING PROG Observed: 09/20/2024 5:41 PM Status: COMPLETED Source: [facility] ID: [id number] Author: MARGUERITE BERRY RN Service: Nursing Author Type: Registered Nurse Type: Nursing Progress Note Filed: 09/20/2024 17:41 Note Text: Sitz Bath Written by Hilary Encinas and Juan Alberto Hanson RN, BSN Medically Reviewed by Kiera Pride RNC-OB on March 03, 2015 Part 1 of 5: Overview What Is a Sitz Bath? A sitz bath is a warm, shallow bath that cleanses the perineum, which is the space between the rectum and the vulva or scrotum. A sitz bath can be used for everyday personal hygiene. It can also provide relief from pain or itching in the genital area. You can give yourself a sitz bath in your bathtub or with a plastic kit that fits over your toilet. This kit is a round, shallow basin that often comes with a plastic bag that has long tubing on the end. This bag can be filled with warm water and used to safely fill the bath via the tubing. The basin is slightly larger in size than a standard toilet bowl so it can be easily and securely placed underneath the toilet seat to allow you to remain seated while taking a sitz bath. The kit is available in most [employer] stores and pharmacies. Part 2 of 5: Uses When Is a Sitz Bath Used? A sitz bath doesn?t require a doctor?s prescription. Some people use sitz baths regularly as a way to cleanse the perineum. In addition to its use in cleansing, the sitz bath?s warm water increases blood flow to the perineal area. This can promote faster healing. A sitz bath also relieves itching, irritation, and minor pain. Common reasons why you might want to consider using a sitz bath include: You recently had surgery on the vulva or vagina. You?ve recently given . You recently had hemorrhoids surgically removed. You have discomfort from hemorrhoids. You have discomfort with bowel movements. Both children and adults can use sitz baths. Parents should always supervise their children during a sitz bath. Doctors sometimes prescribe medications or other additives to put in a sitz bath. An example is povidone-iodine, which has antibacterial properties. Adding table salt, vinegar, or baking soda to the water can create a soothing solution. You also may take a sitz bath using only warm water. Part 3 of 5: In the Bathtub How to Take a Sitz Bath in the Bathtub If you?re taking a sitz bath in the bathtub, the first step is to clean the tub. Mix 2 tablespoons of bleach with one-half gallon of water. Scrub the bathtub and rinse thoroughly. Next, fill the tub with 3 to 4 inches of water. The water should be warm, but not hot enough to cause david or discomfort. You can test the temperature of the water by placing a drop or two on your wrist. When you have found a comfortable temperature, add any substances your doctor recommended for the bath. Now, step into the tub and soak your perineum for 15 to 20 minutes. Bend your knees or, if possible, dangle your legs over the sides of the tub to keep them out of the water altogether. When you get out of the bathtub, gently pat yourself dry with a clean cotton towel. Don?t rub or scrub the perineum, as this may cause pain and irritation. Finish by rinsing the bathtub thoroughly. Part 4 of 5: Sitz Bath Kit How to Take a Sitz Bath Using a Kit A plastic sitz bath kit fits over the toilet. Rinse the bath with clean water before using it. Then, add very warm (but not hot) water along with any medications or solutions recommended by your doctor. Place the sitz bath into the open toilet. Test it by trying to move it [id number] to ensure it will stay in place and won?t shift. You can pour warm water in before you sit down, or you can use the plastic bag and tubing to fill the tub with water after you?ve sat down. The water should be deep enough so that it covers your perineum. Soak for 15 to 20 minutes. If you used the plastic bag, you can add warm water as the original water cools. Most sitz baths have a vent that prevents water from overflowing. The water conveniently overflows into the toilet and can be flushed. When you?re finished, stand up and pat the area dry with a clean cotton towel. Avoid rubbing or scrubbing the area when you do this. Get the sitz bath ready for its next use by cleaning it thoroughly. Many kits come with cleaning instructions and solutions. If your kit doesn?t come with cleaning instructions and a solution, you can clean your sitz bath by scrubbing it with 2 tablespoons of bleach mixed with one-half gallon of hot water. Once you have scrubbed your bath, rinse it thoroughly. Although there are no guidelines for when to replace your sitz bath, always check it for signs of cracking or weakened areas before and after use. Part 5 of 5: Risks and Aftercare Risk Factors and Aftercare A sitz bath carries very little risk of harm because it?s a noninvasive treatment. The most common adverse event associated with sitz baths is infection of the perineum, but this rarely occurs. This may happen if you are caring for a surgical wound and don?t clean the tub or plastic bath thoroughly. Stop taking sitz baths and contact your doctor if pain or itching worsens or if your perineum becomes red and puffy. If sitz baths bring you relief, your doctor will probably recommend taking three or four per day until the source of the itching, irritation, or pain is healed. After you?ve had a sitz bath, you may immediately return to normal activities unless your doctor has told you otherwise. TISS PATH BX REPORT Collected: 09/20/2024 3:[address] atus: F Source: [facility] Order Comment: Specimen Type : TISSUE SPECIMEN Ordering Facility: [facility] Address: [address] [place] [address] TYPE CODE TESTS RESULT OUT OF RANGE REFERENCE UNITS PATHOLOGY [id number] CASE REPORT Result Comment: Surgical Pat hology Report Case: [id number] Authorizing Provider: Olivia Duarte MD Collected: 09/20/2024 03:54 PM Ordering Location: [facility] Received: 09/23/2024 07:07 AM Operating Room Pathologist: Golden Pemberton MD Specimen: Colon, Rectum, Resection, rectal mass PATHOLOGY [id number] FINAL DIAGNOSIS Result Comment: Rectal mass, transanal excision: - 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 JE 09/25/2024 at 1049 EDT PATHOLOGY [id number] DIAGNOSIS COMMENT There is no evidence of invasive adenocarcino ma. PATHOLOGY [id number] GROSS DESCRIPTION Result Comment: A. Colon, Re ctum, Resection Received in formalin designated rectal mass are multiple fragments of castillo cobblestone to villous mucosal covered tissue aggregating to 8.8 x 4.8 x 2 cm. A definitive line of resection cannot grossly be determined. The larger segments are serially sectioned, and the specimen is totally submitted in 26 cassettes. BF September 23, 2024 8:40 AM Gross examination performed at [facility], [address] [place] [address] PATHOLOGY CDX2 CLINICAL HISTORY Result Comment: Pre-op diagn osis: Rectal polyp [K62.1] PATHOLOGY [facility] FINAL PERFORMING LAB Result Comment: Diagnostic i nterpretation performed at: [facility], [address] [place] [address] CLIA# [id number] Manager Epic: Andrea Campbell MD PATHOLOGY [id number] AP DISCLAIMER Result Comment: Laboratory D eveloped Test (LDT) Disclaimer: Performance characteristics of immunohistochemical, immunofluorescent, and chromogenic in-situ hybridization tests have been determined by the performing laboratory within [facility] Pathology and Laboratory Medicine Department ([facility], [facility], [facility], [facility], [facility], [facility], or [facility]) in a manner consistent with CLIA requirements. One or more of these tests may not have been cleared or approved by the FDA. RT-PLM is regulated under CLIA as qualified to perform high-complexity testing. These tests are used for clinical purposes. These should not be regarded as investigational or for research. Positive and negative controls stain appropriately. Performed By: #### [id number] # ### [facility] CLIA [id number] [address] [place] [address] OF [place] ANES PROCEDURE NOTE Observed: 09/20/2024 3:26 PM Status: COMPLETED Source: [facility] HNO ID: [id number] Author: LYNDA MORALES AA Service: Anesthesiology Author Type: Health Practice Manager Type: Anesthesia Procedure Notes Filed: 09/20/2024 15:27 Note Text: ANESTHESIOLOGY PROCEDURE NOTE Airway General Information Procedure Start Time/Medication Administration: 09/20/2024 3:15 PM Procedure End Time: 09/20/2024 3:16 PM Patient location during procedure: OR Patient identity confirmed: arm band Staffing CAA: Lynda Morales AA Performed by: IVIS Indications and Patient Condition Indications for airway management: anesthesia Preoxygenated: yes anesthesia circuit Patient position: sniffing Method: asleep Difficult Mask: No Final Airway Details Final airway type: supraglottic airway Number of attempts at approach: 1 Final Supraglottic Airway: IGEL Size 4 Seal Adequate: yes Airway not difficult SIGNATURE: PILAR Yap PATIENT NAME: Jenna Kumar DATE: September 20, 2024 TIME: 3:26 PM CSN: [id number] OPERATIVE NO Observed: 09/20/2024 3:08 PM Status: COMPLETED Source: [facility] ID: [id number] Author: OLIVIA DUARTE MD Service: Colorectal Author Type: Physician Type: Operative Report Filed: 09/23/2024 18:55 Note Text: COLON AND RECTAL SURGERY OPERATIVE REPORT PATIENT NAME: Jenna Kumar ADMISSION DATE: 09/20/2024 LOG ID: [id number] SURGERY/PROCEDURE DATE: 09/20/2024 INCISION/PROCEDURE START TIME: 3:20 PM INCISION CLOSE/PROCEDURE END TIME: 4:21 PM AGE: [age] year old SEX: female SURGEON(S)/PROCEDURALIST(S) AND YARD STOCKER(S): Surgeons and Role: * Olivia Duarte MD - Primary * Matt Bal MD - Resident - Assisting * Cinda Abrams MD - Fellow No Additional Staff ANESTHESIA: General PREOPERATIVE DIAGNOSIS (ES): Rectal mass POSTOPERATIVE DIAGNOSIS (ES): Same NAME OF OPERATION: Flexible sigmoidoscopy Transanal excision of rectal mass INDICATIONS FOR PROCEDURE: 79 year old woman with recent finding of a liver lesion after presenting with jaundice and biopsy consistent with adenocarcinoma of unknown origin. 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 For definitive diagnosis, transanal excision of rectal mass was discussed with patient and informed consent was obtained. OPERATIVE FINDINGS: Nearly circumferential polypoid lesions starting at dentate line and extending ~5cm proximally, with a portion prolapsing outside the anus. DESCRIPTION OF PROCEDURE: The patient was brought to the operating room and placed under general anesthesia, then transferred to a lithotomy position. The patient received appropriate preop antibiotics and DVT prophylaxis. A surgical time-out was performed. A flexible sigmoidoscopy was completed with a nearly circumferential polypoid lesions starting at dentate line and extending ~5cm proximally, with a portion prolapsing outside the anus. An anal block was performed with 30 cc of 0.5% Marcaine mixed with exparel. We started with the prolapsed portion, proceeding in the submucosal plane, the tumor was resected with a 5mm margin. Once past the dentate line, an anoscope was inserted to facilitate the resection of the more proximal portion of the mass. The right half was resected by dissecting in the submucosal plane, followed by similar approach for the left half. The lesion was soft and mobile without any fixed portion. The specimen was sent to pathology. The wound bed was examined, without evidence of residual tumor, and hemostasis was obtained. We then performed rectal mucosal advancement to the anoderm, to close the circumferential defect, using 3'0 vicryl in an interrupted fashion. The patency of the lumen was then confirmed and flex sig repeated confirming no residual lesion. Gelfoam packing was placed. ESTIMATED BLOOD LOSS: 25cc SPECIMENS: rectal lesion DRAINS: None COMPLICATIONS: None INTRAOPERATIVE FLUIDS: See anesthesia record. SPONGE/INSTRUMENT/NEEDLE COUNTS: Correct x2. PRESENCE STATEMENT: I was present for the entire procedure as I have dictated above. Olivia Duarte M.D. Department of Surgery Division of Colon and Rectal Surgery ANES PRE-OP Observed: 09/20/2024 1:30 PM Status: COMPLETED Source: [facility] HNO ID: [id number] Author: WISAM ALVAREZ DO Service: Critical Care Author Type: Anesthesiologist Type: Anesthesia Preprocedure Evaluation Filed: 09/20/2024 13:51 Note Text: ANESTHESIOLOGY DAY OF SURGERY NOTE : 1945 Procedure Information Date/Time: 09/20/24 1350 Procedures: EXCISE RECTAL TUMOR VIA TRANSANAL APPROACH (Anus) SIGMOIDOSCOPY FLEXIBLE (Colon Sigmoid) Location: [facility] OR01A / [facility] Surgeons: Olivia Duarte MD Estimated body mass index is 22.74 kg/m? as calculated from the following: Height as of 09/12/24: 162.6 cm (5' 4 ). Weight as of 09/12/24: 60.1 kg (132 lb 8 oz). Most recent hematocrit and potassium results: Hemoglobin (g/dL) Date Value 09/12/2024 15.1 Hematocrit (%) Date Value 09/12/2024 48.1 WBC (k/uL) Date Value 09/12/2024 17.06 Platelet Count (k/uL) Date Value 09/12/2024 443 CMP: Glucose 78 09/12/2024 BUN 14 09/12/2024 Creatinine 0.70 09/12/2024 Sodium 134 09/12/2024 Potassium 4.6 09/12/2024 Chloride 98 09/12/2024 CO2 25 09/12/2024 Protein, Total 7.7 09/12/2024 Albumin 3.7 09/12/2024 Calcium, Total 10.2 09/12/2024 Alkaline Phosphatase 844 09/12/2024 Bilirubin, Total 0.9 09/12/2024 AST 91 09/12/2024 ALT 71 09/12/2024 Relevant Problems CARDIO (+) Hypertension (+) LBBB (left bundle branch block) (+) PVC's (premature ventricular contractions) -RENAL (+) 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 (HCC) Psychiatry (+) OK (generalized anxiety disorder) I - PHYSICAL EVALUATION AIRWAY Patient intubated: No. Tracheostomy tube not present Mallampati: III. TM distance: >3 FB. Neck ROM: limited extension. Mouth opening: adequate. Short neck: no. Thick neck: no DENTAL Dental findings: missing tooth/teeth. Dentures, lower: partial. II - ANESTHESIA PLAN ASA Score: 3 Anesthetic Plan: general Airway type: LMA The patient is not a current smoker. NPO Status: adequate Beta Cornell Administration of chronic beta cornell medication planned. Monitoring Plan Monitoring plan: standard ASA. Post Procedure Analgesic Plan Postoperative analgesic plan: parenteral or oral opioids and multimodal analgesia. Informed Consent Anesthetic risks, benefits, alternatives, personnel and consent discussed: yes. Patient / Responsible Constitution Party agrees to proceed: yes Patient / Surrogate agrees to blood products: Yes DNR status not reviewed with patient and/or family prior to surgery. Significant changes in the patient condition since the History and Physical, not otherwise documented in primary service progress note: no. Potential Anesthesia issues that may suggest increased risk of complications or contraindication to planned procedure: none. Vitals Value Taken Time BP 167/60 09/20/24 1252 Pulse 69 09/20/24 1252 Resp 18 09/20/24 1252 Temp 36.1 ?C (97 ?F) 09/20/24 1252 SpO2 99 % 09/20/24 1252 Facility-Administered Medications as of 09/20/2024 Medication Dose Route Frequency lidocaine (PF) 10 mg/mL (1 %) 1-2 mg injection (XYLOCAINE) 0.1-0.2 mL INTRADERMAL PRN lactated ringers iv infusion 5-30 mL/hr INTRAVENOUS CONTINUOUS NaCl 0.9% iv flush bag 20 mL INTRAVENOUS PRN acetaminophen 1,000 mg tab(s) (TYLENOL) 1,000 mg ORAL Pre-Op Once promethazine 12.5 mg tab(s) (PHENERGAN) 12.5 mg ORAL Pre-Op Once lactated ringers iv infusion 30 mL/hr INTRAVENOUS CONTINUOUS Outpatient Medications as of 09/20/2024 Medication Sig ondansetron (ZOFRAN) 8 mg tablet Take 1 tablet by mouth every 8 hours as needed for nausea/vomiting for up to 180 doses. diazePAM (VALIUM) 2 mg tablet Take 2 mg by mouth every 6 hours as needed. hydrocortisone 2.5 % cream losartan (COZAAR) 25 mg tablet Take 25 mg by mouth. metoprolol tartrate, short acting, (LOPRESSOR) 25 mg tablet Take 12.5 mg by mouth two times a day. I have interviewed and examined the patient. I have reviewed the medical record and/or the pre-anesthesia evaluation, pertinent labs, and test results. This contains updated information obtained within 48 hours of Surgery/Procedure. SIGNATURE: Wisam Alvarez DO PATIENT NAME: Jenna Kumar DATE: September 20, 2024 TIME: 1:30 PM CSN: [id number] OUTSIDE CYTOLOGY SLIDE REVIEW Collected : 09/13/2024 8:12 PM Status: F Source: [facility] Order Comment: Specimen Type : FORMALIN-FIXED PARAFFIN-EMBEDDED TISSUE SPECIMEN Ordering Facility: Outside Review Address: , , TYPE CODE TESTS RESULT OUT OF RANGE REFERENCE UNITS PATHOLOGY [id number] CASE REPORT Result Comment: Medical Cyto logy Report Case: [id number] Authorizing Provider: Hugo Taylor MD Collected: 09/13/2024 08:12 PM Ordering Location: [facility] Received: 09/13/2024 08:11 PM [facility] Pathologist: Hermelinda Nathan MD Specimens: A) - Slide(s), HEPATIC DUCT, BRUSHING, 2 OUTSIDE SLIDES, ([id number]), 06/28/2024 B) - Slide(s), LYMPH NODE, PARADUODENAL, FINE NEEDLE ASPIRATION, 5 OUTSIDE SLIDES, ([id number]), 06/28/2024 C) - Slide(s), LIVER, FINE NEEDLE ASPIRATION, 9 OUTSIDE SLIDES, ([id number]), 06/28/2024 PATHOLOGY [id number] FINAL DIAGNOSIS Result Comment: A - Slide(s) - HEPATIC DUCT, BRUSHING, 2 OUTSIDE SLIDES, ([id number]), 06/28/2024 Atypical cells present. B - Slide(s) - LYMPH NODE, PARADUODENAL, FINE NEEDLE ASPIRATION, 5 OUTSIDE SLIDES, ([id number]), 06/28/2024 Atypical cells present. C - Slide(s) - LIVER, FINE NEEDLE ASPIRATION, 9 OUTSIDE SLIDES, ([id number]), 06/28/2024 Neoplastic cells present. See comment. at [facility] PATHOLOGY [id number] DIAGNOSIS COMMENT C. See surgical pathology report [id number] for additional information including results of immunohistochemical stains. Dr. Alcides Gaona has reviewed this case and agrees with the above interpretation. PATHOLOGY [facility] FINAL PERFORMING LAB Result Comment: Technical co mponent, service plumber screening performed at: [facility], [address] [place] [address] CLIA: [id number] Diagnostic interpretation performed at: [facility], [address] [place], [place] [address] CLIA# [id number] Manager Epic: Nilson Galvez MD PATHOLOGY [id number] AP DISCLAIMER Result Comment: Laboratory D eveloped Test (LDT) Disclaimer: Performance characteristics of immunohistochemical, immunofluorescent, and chromogenic in-situ hybridization tests have been determined by the performing laboratory within [facility] Pathology and Laboratory Medicine Department ([facility], [facility], [facility], [facility], [facility], [facility], or [facility]) in a manner consistent with CLIA requirements. One or more of these tests may not have been cleared or approved by the FDA. RT-PLM is regulated under CLIA as qualified to perform high-complexity testing. These tests are used for clinical purposes. These should not be regarded as investigational or for research. Positive and negative controls stain appropriately. Performed By: #### [id number] # ### [facility] CLIA [id number] [address] [place] [address] [place] OUTSIDE SURG PATH SLIDE REVIEW Collected: 09/13/2024 8:05 PM Status: F Source: [facility] Order Comment: Specimen Type : FORMALIN-FIXED PARAFFIN-EMBEDDED TISSUE SPECIMEN Ordering Facility: Outside Review Address: , , TYPE CODE TESTS RESULT OUT OF RANGE REFERENCE UNITS PATHOLOGY [id number] CASE REPORT Result Comment: Surgical Pat hology Report Case: [id number] Authorizing Provider: Hugo Taylor MD Collected: 09/13/2024 08:05 PM Ordering Location: [facility] Received: 09/13/2024 08:05 PM [facility] Pathologist: Sharri Goff MD Specimen: Slide(s), 6 SLIDES [id number] PATHOLOGY [id number] FINAL DIAGNOSIS Result Comment: [facility], [place], [place]; S20 [phone] (06/28/2024) A. 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 at [address] [facility] PATHOLOGY [id number] DIAGNOSIS COMMENT Immunohistochemical stains were performed at [facility] on outside block [id number] (A1) and show that the tumor cells are positive for MOC-31 and CK AE1/AE3, while negative for synaptophysin and INSM1. The Ki-67 proliferation index is high. The overall morphologic and immunophenotypic findings seen on part a are compatible with adenocarcinoma. There are fragments of a detached tubular component. Part A was reviewed with Dr. Gaitan and Dr. Norris, who concur. PATHOLOGY [facility] FINAL PERFORMING LAB Result Comment: Diagnostic i nterpretation performed at: [facility], [address] [place] [address] CLIA# [id number] Manager Epic: Nilson Galvez MD PATHOLOGY [id number] AP DISCLAIMER Result Comment: Laboratory D eveloped Test (LDT) Disclaimer: Performance characteristics of immunohistochemical, immunofluorescent, and chromogenic in-situ hybridization tests have been determined by the performing laboratory within [facility] Pathology and Laboratory Medicine Department ([facility], [facility], [facility], [facility], [facility], [facility], or [facility]) in a manner consistent with CLIA requirements. One or more of these tests may not have been cleared or approved by the FDA. RT-PLM is regulated under CLIA as qualified to perform high-complexity testing. These tests are used for clinical purposes. These should not be regarded as investigational or for research. Positive and negative controls stain appropriately. Performed By: #### [id number] # ### [facility] CLIA [id number] [address] [place] [address] [place] COMP METAB 2000 PNL SERPL Collected: 4:14 PM Status: F Source: [facility] Order Comment: Specimen Type : BLOOD SPECIMEN Ordering Facility: [facility] Address: [address] [place] [address] TYPE CODE TESTS RESULT OUT OF RANGE REFERENCE UNITS LAB 2885-2(LOINC) Prot SerPl-mCnc 7.7 6.3-8.0 g/dL LAB 1751-7(LOINC) Albumin SerPl-mCnc 3.7 Low 3.9-4.9 g/dL LAB 15046-0(LOINC) Calcium SerPl-mCnc 10.2 8.5-10.2 mg/dL LAB 1974-2(LOINC) Bilirub SerPl-mCnc 0.9 0.2-1.3 mg/dL LAB 6768-6(LOINC) ALP SerPl-cCnc 844 High 34-123 U/L LAB 1920-8(LOINC) AST SerPl-cCnc 91 High 13-35 U/L LAB 1742-6(LOINC) ALT SerPl-cCnc 71 High 7-38 U/L LAB 2345-7(LOINC) Glucose SerPl-mCnc 78 74-99 mg/dL Result Comment: The [place] Diabetes Association (ADA) provides guidance for cutoff [...] Standards of Medical Care in Diabetes 2016, [place] [employer]. Diabetes Care. 2016.39(Suppl 1). LAB 3094-0(LOINC) BUN SerPl-mCnc 14 7-21 mg/ dL LAB 2160-0(LOINC) Creat SerPl-mCnc 0.70 0.58-0.96 mg/dL LAB 2951-2(LOINC) Sodium SerPl-sCnc 134 Low 136-144 mmol/L LAB 2823-3(LOINC) Potassium SerPl-sCnc 4.6 3.7-5.1 mmol/L LAB 2075-0(LOINC) Chloride SerPl-sCnc 98 98-107 mmol/L LAB 2028-9(LOINC) CO2 SerPl-sCnc 25 22-30 mmo l/L LAB 43462-0(LOINC) Anion Gap SerPl-sCnc 11 8-15 mmol/L LAB 46564-9(LOINC) Creatinine + eGFR Pnl SerPlBld 87 >=60 mL/min/1 .73m??? Result Comment: Estimated Gl omerular Filtration Rate (eGFR) is calculated using the 202 CKD-EPI creatinine equation. This equation utilizes serum creatinine, sex, and age as parameters. The creatinine assay has traceable calibration to isotope dilution-mass spectrometry. Refer to KDIGO guidelines for clinical interpretation. In patients with unstable renal function, e.g. those with acute kidney injury, the eGFR may not accurately reflect actual GFR. Performed By: #### [id number] # ### [facility] CLIA [id number] [address] [facility] [place] [address] [place] CBC W AUTO DIFF BLD Collected: 09/12/2024 4:[address] atus: F Source: [facility] Order Comment: Specimen Type : BLOOD SPECIMEN Ordering Facility: [facility] Address: [address] [place] [address] TYPE CODE TESTS RESULT OUT OF RANGE REFERENCE UNITS LAB 6690-2(INC) WBC # Bld Auto 17.06 High 3.70-11.00 k/uL LAB 789-8(INC) RBC # Bld Auto 5.50 High 3.90-5.20 m/ uL LAB 718-7(INC) Hgb Bld-mCnc 15.1 11.5-15.5 g/dL LAB 4544-3(INC) Hct VFr Bld Auto 48.1 High 36.0-46.0 % LAB 787-2(INC) MCV RBC Auto 87.5 80.0-100.0 fL LAB 785-6(INC) MCH RBC Qn Auto 27.5 26.0-34.0 p g LAB 786-4(LOINC) MCHC RBC Auto-mCnc 31.4 30.5-36.0 g/dL LAB 82748-3(INC) RDW RBC-Rto 13.2 11.5-15.0 % LAB 777-3(INC) Platelet # Bld Auto 443 High 150-400 k/uL LAB 56619-4(INC) PMV Bld Auto 12.3 9.0-12.7 fL LAB 65793-8(INC) nRBC/100 WBC Bld-Rto 0.0 /100 WBC LAB 771-6(LOINC) nRBC # Bld Auto <0.01 <0.01 k/u L LAB 770-8(LOINC) Neutrophils/cyndi k NFr Bld Auto 62.0 % LAB 751-8(LOINC) Neutrophils # Bld Auto 10.58 High 1.45-7.50 k/uL LAB 736-9(LOINC) Lymphocytes/cyndi k NFr Bld Auto 29.0 % LAB 731-0(LOINC) Lymphocytes # Bld Auto 4.95 High 1.00-4.00 k/uL LAB 5905-5(LOINC) Monocytes/leuk NFr Bld Auto 6.0 % LAB 742-7(LOINC) Monocytes # Bld Auto 1.02 High <0.87 k/uL LAB 713-8(LOINC) Eosinophil/leuk NFr Bld Auto 2.0 % LAB 711-2(LOINC) Eosinophil # Bld Auto 0.34 <0.46 k/uL LAB 706-2(LOINC) Basophils/leuk NFr Bld Auto 1.0 % LAB 704-7(LOINC) Basophils # Bld Auto 0.17 High <0.11 k/uL LAB 91077-4(LOINC) Platelet # Bld Est Increased LAB [id number] RED CELL MORPH Reviewed: unremarkable LAB 96742-4(LOINC) Differential method Bld Manual Performed By: #### [id number] # ### [facility] CLIA [id number] [address] [place] [address] HISTORY PHYSICAL Observed: 09/12/2024 3:10 PM Status: COMPLETED Source: [facility] HNO ID: [id number] Author: LUCY ARREAGA PA-C Service: ? Author Type: Physician Nursing Student Type: H&P Filed: 09/13/2024 15:31 Note Text: [facility] HISTORY AND PHYSICAL EXAMINATION SERVICE DATE: 09/12/2024 SERVICE TIME: 3:34 PM PRIMARY CARE PHYSICIAN: Mayito Costello DO Assessment Patient has the following medical conditions which may affect marisela-operative course: Hypertension Assessment: Controlled on current medication regimen, BP today 133/72. Last 14 BP Last 14 Encounter BP Readings: Date: BP: 09/12/2024 133/72 09/09/2024 166/78[did not take medicaiton today[ 09/05/2024 162/88 07/19/2024 146/81 LBBB (left bundle branch block) Assessment: Since age 38 per pt. PVC's (premature ventricular contractions) Assessment: Premature supraventricular complexes noted on ECG in Care Everywhere 07/01/24. Occasional ectopic beats on exam today. On metoprolol. Managed by PCP. Anemia Assessment: Has improved compared to CBC 07/10/24. Latest Ref Rng AND Units 07/19/2024 CBC WBC 3.70 - 11.00 k/uL 16.86 RBC 3.90 - 5.20 m/uL 3.62 Hemoglobin 11.5 - 15.5 g/dL 10.8 Hematocrit 36.0 - 46.0 % 34.4 MCV 80.0 - 100.0 fL 95.0 MCH 26.0 - 34.0 pg 29.8 MCHC 30.5 - 36.0 g/dL 31.4 RDW-CV 11.5 - 15.0 % 19.1 Platelet Count 150 - 400 k/uL 368 MPV 9.0 - 12.7 fL 12.6 Baso% % 0.9 Abs Neut (ANC) 1.45 - 7.50 k/uL 10.08 Abs Lymph 1.00 - 4.00 k/uL 4.76 Abs Charles <0.87 k/uL 1.32 Abs Eosin <0.46 k/uL 0.44 Abs Baso <0.11 k/uL 0.15 NRBC /100 WBC 0.0 OK (generalized anxiety disorder) Assessment: Stable, sx managed on Valium PRN. 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 (HCC) Assessment: H/o obstructive jaundice 06/2024 s/p ERCP sphincterotomy and plastic stent placement into the left hepatic lobe, unclear primary (hepatobiliary vs colorectal), awaiting results of rectal tumor resection to determine tx. ANESTHESIA FINDINGS: Intubation History: No history of difficult intubation. No abnormal airway history Significant Anesthesia Considerations: none Airway History: No history of difficult airway No abnormal airway history Tejeda Activity Status Index: METS: Walk indoors, such as around the house (1.75 METs) Do light work around the house, such as dusting or washing dishes (2.70 METs) Take care of self; that is eating, dressing, bathing, using the toilet (2.75 METs) Walk a block or two on level ground (2.75 METs) Do moderate work around the house, such as vacuuming, sweeping floors, or carrying in groceries (3.50 METs) Climb a flight of stairs or walk up a hill (5.50 METs) DASI Score: 18.95 Patient denies any chest pain or undue shortness of breath with the above physical activity. Clinical Frailty Scale: 3. Well, with treated comorbid disease STOP-Bang Score: Has or is being treated for high blood pressure Patient over 50 years old Denies snoring loudly Denies feeling tired, fatigued, or sleepy during the daytime Has not been observed to stop breathing or choking/gasping during sleep BMI less than or equal to 35 kg/m2 Does not have a large neck Non-male patient STOP-Bang Score: 2 [id number] Score: Age: >=75 Sex: female CHF history: No Hypertension history: Yes Stroke/TIA/thromboembolism history: No Vascular disease history: No Diabetes history: No [id number] Score: 4 I - PHYSICAL EVALUATION AIRWAY Patient intubated: No. Tracheostomy tube not present Mallampati: III. TM distance: >3 FB. Neck ROM: full ROM without neurological symptoms. Mouth opening: adequate. Short neck: no. Thick neck: no Lip Bite Test: II Microretrognathia/Micronagthia/Recessed Chin: No DENTAL Dental findings: teeth intact. Dentures, lower: partial. Additional comments: +Caps/crowns, veneers. II - ANESTHESIA PLAN Anesthetic Plan: other Anesthetic plan additional comments: *PACC/TCI - anesthesia choice. Beta Cornell Monitoring Plan Post Procedure Analgesic Plan Prepared for Surgery: optimally prepared for surgery. CONSULTS: Patient does not require consults for optimization at this time Planned Anesthetic: other anesthesia choice The Following Tests/Procedures Have Been Initiated: No orders of the defined types were placed in this encounter. REASON FOR VISIT: Jenna Kumar is a 79 year old female who is scheduled for Procedure(s): EXCISE RECTAL TUMOR VIA TRANSANAL APPROACH (N/A) SIGMOIDOSCOPY FLEXIBLE (N/A) at the request of Dr. Olivia Duarte for consultation. My final recommendation will be communicated back to the requesting physician by way of shared medical record or letter. Subjective The patient has the following: ACTIVE PROBLEM LIST Adenocarcinoma Determined By Biopsy of Liver (Hcc) Ok (Generalized Anxiety Disorder) Hypertension Lbbb (Left Bundle Branch Block) Anemia Pvc's (Premature Ventricular Contractions) COVID-19 Immunization Status Current Care Gaps Covid-19 Vaccine () Overdue since 01/14/2024 05/05/2021 Outside Immunization: COVID-19, mRNA, LNP-S, PF, 30 mcg/0.3 mL dose 09/21/2020 Outside Immunization: COVID-19, mRNA, LNP-S, PF, 30 mcg/0.3 mL dose 08/31/2020 Outside Immunization: COVID-19, mRNA, LNP-S, PF, 30 mcg/0.3 mL dose Only the first 3 history entries have been loaded, but more history exists. CHIEF COMPLAINT: rectal polyp HPI: Jenna Kumar is a 79 year old female presenting for pre-anesthesia consultation. Pt has history of rectal mass. Mass was biopsied twice and did not return as rectal cancer. A PET scan showed interval development of circumferential multifocal metabolically active rectal wall thickening. Pt reports hard BMs that are difficult to pass. Above procedure recommended to manage findings. Procedure scheduled on 09/20/2024 at . REVIEW OF SYSTEMS: General: Negative for: fever. Neurological: No history of TIA's, stroke, [employer]IVE [employer]ER tumor, impaired sensorium, hemiplegia, paraplegia or quadraplegia. No neurological symptoms or problems. Respiratory: No history of current cough or dyspnea, or pneumonia in the past 6 weeks. No history of respiratory/pulmonary symptoms or problems. Cardiovascular: +LBBB +PVCs - on metoprolol Positive for: hyperlipidemia and hypertension Negative for: AICD/PPM, arrhythmia, atrial fibrillation, CHF, DVT/PE, recent AR, murmur/valvular heart disease, PTCA, open heart surgery and valve surgery. GI: See HPI. +Liver CA Positive for: heartburn (occasional) Negative for: GERD and ETOH >2 drinks/day. : No history of dysuria, frequency or incontinence, stones or chronic kidney disease. No difficulty urinating, nocturia > 1 time per night or hematuria. Endocrine: No history of diabetes. Has not taken steroids within the past 30 days. No history of endocrinological symptoms or problems. Hematology: Positive for: anemia. Negative for: chronic anti-coagulation/platelet meds. Oncology: +Liver CA - h/o obstructive jaundice 06/2024 s/p ERCP sphincterotomy and plastic stent placement into the left hepatic lobe, unclear primary (hepatobiliary vs colorectal), awaiting results of rectal tumor resection to determine tx +H/o skin cancer Psych: Positive for: anxiety. Musculoskeletal: Positive for: back pain (lumbar - occasional). Skin: Negative for lesions, rash and itching. Implanted Devices: No implanted devices. PAST MEDICAL HISTORY Diagnosis Date Anemia OK (generalized anxiety disorder) High risk medication use Hypercholesterolemia Hypertension LBBB (left bundle branch block) Obstructive jaundice (HCC) Primary adenocarcinoma of liver (HCC) Tubulovillous adenoma of rectum PAST SURGICAL HISTORY Procedure Laterality Date BILIARY STENT COLONOSCOPY SCREENING FAMILY HISTORY Problem Relation Age of Onset Melanoma Mother Heart disease Father No Known Problems Sister Diabetes Son type 1 Coronary Artery Disease Son Hypertension Son Diabetes Son type 2 Coronary Artery Disease Son Hypertension Son No Known Problems Maternal Grandmother No Known Problems Maternal Grandfather Diabetes Paternal Grandmother Anesthesia Problems No Family History Social History Tobacco Use Smoking status: Never Smokeless tobacco: Never Vaping Use Vaping status: Never Used Substance Use Topics Alcohol use: Yes Comment: rare Drug use: Never Prior to Admission medications as of 09/12/24 1542 Medication Sig Last Dose Taking ondansetron (ZOFRAN) 8 mg tablet Take 1 tablet by mouth every 8 hours as needed for nausea/vomiting for up to 180 doses. Yes diazePAM (VALIUM) 2 mg tablet Take 2 mg by mouth every 6 hours as needed. Yes hydrocortisone 2.5 % cream Yes losartan (COZAAR) 25 mg tablet Take 25 mg by mouth. Yes metoprolol tartrate, short acting, (LOPRESSOR) 25 mg tablet Take 12.5 mg by mouth two times a day. Yes No medication comments found. ALLERGIES Allergen Reactions Penicillins Hives Sulfadiazine Hives Objective PHYSICAL EXAM: General: alert and oriented and healthy appearance. Pertinent negatives noted - not distressed. Skin: normal color, no rash or lesions. HEENT: EOM intact and pupils equal round. Pertinent negatives noted - no carotid bruit. Cardiovascular: Pulse characterized as regular.Pertinent negatives noted - no murmur, no rub and no gallop. No radial pulse abnormalities. RRR with occasional ectopic beats. Respiratory: normal breath sounds, no wheezes or crackles. Abdomen: Pertinent negatives noted - not distended. Extremities: Pertinent negatives noted - no cellulitis, no clubbing, no deformity and no edema. Neurological: normal cognition and motor skills. Gait normal. No weakness or sensory deficit. PAIN ASSESSMENT: Pain Pain Level: 1 Pain Location: Rectum Description: Aching, Dull Duration Units: Months Frequency: Intermittent VITALS: BP 133/72 Pulse 69 Temp (Src) 97.8 (Oral) Resp 16 Ht 5' 4 (1.63m) Wt 132 lb 8 oz (60.1kg) SpO2 98% BMI 22.73 kg/(m2). Diagnostic tests reviewed for today's visit: Lab Value Units Date High Low HB 15.1 g/dL 09/12/2024 15.5 11.5 HCT 48.1 % 09/12/2024 46.0 36.0 WBC 17.06 k/uL 09/12/2024 11.00 3.70 PLT 443 k/uL 09/12/2024 400 150 NA 134 mmol/L 09/12/2024 144 136 K 4.6 mmol/L 09/12/2024 5.1 3.7 GLUC 78 mg/dL 09/12/2024 99 74 BUN 14 mg/dL 09/12/2024 21 7 CREAT 0.70 mg/dL 09/12/2024 0.96 0.58 PTSEC No results within date range. INR No results within date range. APTT No results within date range. ALT 71 U/L 09/12/2024 38 7 AST 91 U/L 09/12/2024 35 13 TBILI 0.9 mg/dL 09/12/2024 1.3 0.2 TSH No results within date range. Lab Value Units Date High Low HCGQT No results within date range. UHCG No results within date range. HCG, BODY* No results within date range. Lab Value Units Date High Low ABORHD No results within date range. ABSCREEN No results within date range. No results found for: HBA1C ECG 07/08/24 (Care Everywhere) Normal sinus rhythm with sinus arrhythmia Non-specific intra-ventricular conduction block Anterolateral infarct , age undetermined Abnormal ECG When compared with ECG of 01-JUL-2024 22:03, Premature supraventricular complexes are no longer Present Non-specific intra-ventricular conduction block has replaced Left bundle branch block Anterior infarct is now Present Anterolateral infarct is now Present Confirmed by Daylin LOBO, HUGO Alexandra ([id number]) on 07/08/2024 9:42:00 PM ECG 07/01/24 (Care Everywhere) IMPRESSION: Sinus rhythm with Premature supraventricular complexes Left bundle branch block Abnormal ECG No previous ECGs available Confirmed by Marcelino Ledbetter ([id number]) on 07/02/2024 12:56:22 AM No results found for this or any previous visit (from the past 09902 hours). Instructions Given to Patient: Instructions located in the after visit summary. Patient given verbal and written preop instructions and voices comprehension and compliance. SIGNATURE: Lucy Arreaga PA-C PATIENT NAME: Jenna Kumar DATE: 09/12/2024 TIME: 3:34 PM PAGER/CONTACT #: [email or web address] Observed: 09/12/2024 9:32 AM Status: COMPLETED Source: [facility] HNO ID: [id number] Author: HUGO TAYLOR MD Service: ? Author Type: Physician Type: Progress Notes Filed: 09/12/2024 09:40 Note Text: [facility] Multidisciplinary GI Tumor Board Primary Disease: liver mass Oncologist: Dr. Angela History: Jenna Kumar is a 79 year old female with obstructive jaundice, found to have a large central liver mass s/p ERCP and plastic stent placement in the left liver system and subsequent resolution of the jaundice clinically. She had an EUS Bx of the liver mass that showed poorly differentiated adenocarcinoma, CK7+ CK20- CDX- highly suggestive of biliary origin. PET scan showed an avid rectal mass that clinically associates with a prolapsing polyp, s/p biopsy x2 showing low grade dysplasia and focal high grade dysplasia. 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 The mass is unresectable from the surgical standpoint. TB consensus agreed with the transanal excision of the rectal polyp to rule out malignancy. Refer to medical oncology and IR to discuss systemic therapy and targeted liver therapy options. Genetic counseling referral: will order NGS on tumor Eligibility for Clinic Trials: NA Supportive Care Services (PT/OT/Palliative Medicine/Social Work/Pain Management): NA Synoptic OP note completed: N/A, cancer diagnosis unknown prior to surgery. Attendees: Representatives were present from Medical Oncology, Colorectal Surgery, [facility] Surgery, Surgical Oncology, Radiation Oncology, Radiology, Interventional radiology, Gastroenterology and Pathology. This is the summary of the general discussion provided at tumor board conference. The final recommendations will be made by the primary health care team and the patient after discussing the benefits, risks and alternatives to the various treatment options MERCEDES Observed: 09/11/2024 12:00 AM Status: COMPLETED Source: [facility] Telephone (DDQ) JENNA KUMAR ([id number]) 1945 F Date Time Provider Department 09/11/24 OLIVIA DUARTE DDQ During your visit today, we recorded the following information about you: Vickie Morales PSS 09/11/2024 2:37 PM Signed Pt stated she has a procedure on 09/20/24and in a couple of weeks pt will be have a procedure to change stents on liver. Pt asked if it was possible to have both procedures done at the same time? Pt would prefer not to be put to sleep twice. Also, pt asked if she could get a call 2 days before procedure. Pts sons need to get off work Vickie Morales, Naz Ochoa, MARTI 09/11/2024 3:05 PM Signed Call returned to patient. She is scheduled for surgery with Dr Duarte on 09/20 for rectal polyp removal. She routinely gets biliary drains placed/exchanged in [place] for her liver disorder however under the guidance of Dr Taylor here in [place]. She wishes to have her next drain changed at same time with Dr Taylor this time to avoid additional anesthesia. Her last drain was placed 4 weeks ago so the timing would be good for her. Discussed coordination process to have 2 surgeons together. Discussed he may or may not approve to have these 2 surgeries at same time, especially with contamination. Will discuss with Dr Taylor's team regarding request and have his team call her back. She is appreciative of the call back. Allergies As of Date: 09/11/2024 Noted Allergy Reaction PENICILLINS 06/28/2024 4 - Hives SULFADIAZINE 06/28/2024 4 - Hives Date Reviewed: 09/09/2024 Reviewed by: Bonny Mora MA - Fully Assessed Reason for Visit: Patient Question [1477] Prescriptions as of 09/11/2024 - ondansetron (ZOFRAN) 8 mg tablet Take 1 tablet by mouth every 8 hours as needed for nausea/vomiting for up to 180 doses. - diazePAM (VALIUM) 2 mg tablet Take [...] by mouth. Problem List As Of Date 09/11/2024 Noted Resolved 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 (H*08/04/2024 Encounter Status:Closed by NZA FRENCH on 09/11/24 HISTORY PHYSICAL Observed: 09/09/2024 2:39 PM Status: COMPLETED Source: [facility] ID: [id number] Author: HUGO TAYLOR MD Service: ? Author Type: Physician Type: H&P Filed: 09/09/2024 14:48 Note Text: New Patient Consult REASON FOR VISIT Consultation requested by Reuben Angela for an opinion regarding Jenna Kumar. My final recommendations will be communicated back to the requesting physician by way of shared Medical record or letter to requesting physician via US mail. History of Present Illness: Jenna Kumar is a 79 year old female presenting for evaluation of a liver lesion. Jenna reports that approximately 3 months ago, she began experiencing fatigue and occasional nausea. In May, she noticed jaundice and sought medical attention. Her primary care physician ordered a CT scan, which revealed a liver tumor. On 06/28, she underwent stent placement and a liver biopsy, which confirmed the presence of cancer. She has since had two stent placements, with the most recent one on 08/13. She is scheduled for another stent placement in a few weeks. Approximately 1.5 weeks ago, she underwent an MRI, which confirmed the presence of a liver tumor. She has also had a PET scan and two MRIs, which have shown no significant changes in the size of the tumor. She reports that she has not received any treatment for the liver tumor since the initial stent placement. She also reports that she has been experiencing pain in the rectum and has been diagnosed with a polyp with high-grade dysplasia. She is scheduled for a polypectomy in the near future. She expresses concern about the potential side effects of chemotherapy and is hesitant to undergo this treatment. She is also concerned about the pain associated with the polypectomy. FUNCTIONAL STATUS: Climb a flight of stairs or walk up a hill (5.50 METs) PAST MEDICAL HISTORY Diagnosis Date OK (generalized anxiety disorder) High risk medication use Hypercholesterolemia Hypertension Obstructive jaundice (HCC) Primary adenocarcinoma of liver (HCC) Tubulovillous adenoma of rectum PAST SURGICAL HISTORY Procedure Laterality Date BILIARY STENT FAMILY HISTORY Problem Relation Age of Onset Melanoma Mother Heart disease Father No Known Problems Sister No Known Problems Maternal Grandmother No Known Problems Maternal Grandfather Diabetes Paternal Grandmother Diabetes Son type 1 Coronary Artery Disease Son Hypertension Son Diabetes Son type 2 Coronary Artery Disease Son Hypertension Son Social History Tobacco Use Smoking status: Never Smokeless tobacco: Never Vaping Use Vaping status: Never Used Substance Use Topics Alcohol use: Not Currently Comment: occasionally Drug use: Never MEDICATIONS Current Outpatient Medications Medication Sig Dispense Refill ondansetron (ZOFRAN) 8 mg tablet Take 1 tablet by mouth every 8 hours as needed for nausea/vomiting for up to 180 doses. 90 tablet 1 diazePAM (VALIUM) 2 mg tablet Take 2 mg by mouth every 6 hours as needed. losartan (COZAAR) 25 mg tablet Take 25 mg by mouth. metoprolol tartrate, short acting, (LOPRESSOR) 25 mg tablet Take 12.5 mg by mouth. hydrocortisone 2.5 % cream APPLY TOPICALLY TWICE DAILY NEEDED FOR SKIN IRRITATION FOR 30 DAYS (Patient not taking: Reported on 09/09/2024) pantoprazole DR (PROTONIX) 40 mg tablet Take 40 mg by mouth. (Patient not taking: Reported on 09/09/2024) No current facility-administered medications for this visit. CURRENT ALLERGIES ALLERGIES Allergen Reactions Penicillins Hives Sulfadiazine Hives REVIEW OF SYSTEMS PAIN ASSESSMENT: General: No weight loss, malaise or fevers. Neuro: No Hx of stroke or seizures Respiratory: No history of current cough or dyspnea, or pneumonia in the past 6 weeks. No history of respiratory/pulmonary symptoms or problems Cardiovascular: No history of HTN requiring medication, no history of angina, CHF, AR, cardiac surgery or stents. Denies rest pain, gangrene or revascularization/amputation for PVD. No history of cardiovascular symptoms or problems. GI: See HPI : No history of UTI in past 6 weeks. No history of renal failure. Not currently on or requiring dialysis. No history of symptoms or problems. Endocrine: No history of diabetes. Has not taken steroids within the past 30 days. No history of endocrinological symptoms or problems. Hematology: No history of bleeding or clotting disorder. Pt is not taking anti-coagulation or platelet medications. No history of hematological symptoms or problems. Oncology: No history of CA metastasis, chemo within 30 days, or radiotherapy within 90 days. Has not lost 10% of body wt in 6 months. No history of oncological symptoms or problems. Psych: No history of psychiatric symptoms or problems. Musculoskeletal: Negative for joint pain or swelling, back pain or muscle pain. Skin: Negative for lesions, rash and itching. Anemia: No PHYSICAL EXAMINATION BP 166/78[did not take medicaiton today[ Pulse 49 Temp (Src) 97 (Temporal) Ht 5' 4 (1.63m) Wt 132 lb 4.4 oz (60.0kg) SpO2 97% BMI 22.69 kg/(m2). General Appearance: Well appearing, alert, in no acute distress, well-hydrated, well nourished. Skin: Skin color, texture, turgor normal, no suspicious rashes or lesions Head: Normocephalic, no masses, lesions, tenderness or abnormalities Oropharynx: Lips, mucosa, and tongue normal, teeth and gums normal, oropharynx normal Neck: Not examined Lungs: Unlabored on room air Heart: Not examined Extremities: No deformities, edema, skin discoloration, clubbing or cyanosis. Good capillary refill. Neuro: Gait normal. Reflexes normal and symmetric. Sensation grossly intact. Abdomen: Negative Spinning Bath Person present: Yes (son Jony) ASSESSMENT 79 F with obstructive jaundice s/p ERCP sphincterotomy and plastic stent placement into the left hepatic lobe. CT shows dilation of both left > right ducts and a 5.6 cm mass straddling the biliary bifurcation. CA 19-9 <2 and AFP 5, and CEA 2.2. EUS biopsy confirmed adenocarcinoma, no specification of the primary (hepatobiliary vs colorectal). Her PET scan confirmed avidity of the large liver lesion with abnormal PET avidity of a rectal polyp that was biopsied via colonoscopy and showed high grade dysplasia. The patient is symptomatic from the rectal mass (pain). RECOMMENDATION I explained the findings to the patient and her son. I clinically suspect this to be situation of rectal primary with liver metastasis. The differential diagnosis includes a primary liver malignancy with a synchronous rectal polyp (likely malignant). To establish the correct diagnosis I recommended proceeding with the transanal excision of the rectal tumor (scheduled with Dr. Duarte on 09/20/2024) and obtain the EUS FNA slides from 06/28/2024 ([facility]) and have them reviewed at [facility]. We might consider another biopsy if stains are required to determine the origin of the malignant cells in the liver. Based on the data we gather, we will determine the next steps of treatment but I briefly discussed with the patient systemic therapy (colorectal vs liver malignancies), radiation, Y90 and surgical resection. I explained that the liver mass, in its current size and location, is unresectable and she understood. We will meet again after her CORS procedure. Medical Decision Making: Problems: High: Illness/injury w/ threat to life/body function Data: Unique source(s) for external note(s) reviewed: 3+ Unique test result(s) reviewed: 3+ Assessment requiring an independent historian(s) Independent interpretation of test from other physician/QHCP Discussed management or test w/ external physician/QHCP/source Risk: High: High risk from testing/treatment Medical Decision Making Level: 5 - High Hugo Taylor MD [facility] [place] [facility] / [facility] September 09, 2024 PROGRESS Observed: 09/09/2024 2:00 PM Status: COMPLETED Source: [facility] HNO ID: [id number] Author: GENIE OSORIO RN Service: ? Author Type: Registered Nurse Type: Progress Notes Filed: 09/09/2024 14:48 Note Text: New/Est pt: New patient - ref by Dr. Angela Reason for apt: liver mass *TB 09/12 Medical Hx: OK, HTN, jaundice Surgical Hx: Imagin08/27/24: MRI liver 07/23/24: PET/CT IMPRESSION PRIMARY DISEASE SITE: * Circumferential abnormal [...] indeterminate significance. * Trace LEFT pleural effusion. Labs: 07/19/24 CA19-9 <36.0 U/mL <2.0 CNOV Observed: 09/09/2024 2:00 PM Status: COMPLETED Source: [facility] Office Visit ([id number]) JENNA KUMAR ([id number]) 1945 F Date Time Provider Department 09/09/24 2:00 PM HUGO TAYLOR [id number] During your visit today, we recorded the following information about you: Temperature Pulse Blood pressure Weight 97 degrees 49/minute 166/78 60 kg Height 1.626 m [place], [place] 09/09/2024 2:48 PM Signed What is the reason for your visit today? Consult [facility] cholangiocarcinoma Who is your referring physician? Dr Alexis Are you having poor oral intake? NO Have you had unintentional weight loss of 15 lbs/7 Kg in the last 3-6 months? NO Bowels: regular Wound: Temperature: No Drains: No Genie Osorio, MARTI 09/09/2024 2:48 PM Signed New/Est pt: New patient - ref by Dr. Angela Reason for apt: liver mass *TB 09/12 Medical Hx: OK, HTN, jaundice Surgical Hx: Imagin08/27/24: MRI liver 07/23/24: PET/CT IMPRESSION PRIMARY DISEASE SITE: * Circumferential abnormal [...] indeterminate significance. * Trace LEFT pleural effusion. Labs: 07/19/24 CA19-9 <36.0 U/mL <2.0 Hugo Taylor MD 09/09/2024 2:48 PM Signed New Patient Consult REASON FOR VISIT Consultation requested by Reuben Angela for an opinion regarding Jenna Kumar. My final recommendations will be communicated back to the requesting physician by way of shared Medical record or letter to requesting physician via US mail. History of Present Illness: Jenna Kumar is a 79 year old female presenting for evaluation of a liver lesion. Jenna reports that approximately 3 months ago, she began experiencing fatigue and occasional nausea. In May, she noticed jaundice and sought medical attention. Her primary care physician ordered a CT scan, which revealed a liver tumor. On 06/28, she underwent stent placement and a liver biopsy, which confirmed the presence of cancer. She has since had two stent placements, with the most recent one on 08/13. She is scheduled for another stent placement in a few weeks. Approximately 1.5 weeks ago, she underwent an MRI, which confirmed the presence of a liver tumor. She has also had a PET scan and two MRIs, which have shown no significant changes in the size of the tumor. She reports that she has not received any treatment for the liver tumor since the initial stent placement. She also reports that she has been experiencing pain in the rectum and has been diagnosed with a polyp with high-grade dysplasia. She is scheduled for a polypectomy in the near future. She expresses concern about the potential side effects of chemotherapy and is hesitant to undergo this treatment. She is also concerned about the pain associated with the polypectomy. FUNCTIONAL STATUS: Climb a flight of stairs or walk up a hill (5.50 METs) PAST MEDICAL HISTORY Diagnosis Date OK (generalized anxiety disorder) High risk medication use Hypercholesterolemia Hypertension Obstructive jaundice (HCC) Primary adenocarcinoma of liver (HCC) Tubulovillous adenoma of rectum PAST SURGICAL HISTORY Procedure Laterality Date BILIARY STENT FAMILY HISTORY Problem Relation Age of Onset Melanoma Mother Heart disease Father No Known Problems Sister No Known Problems Maternal Grandmother No Known Problems Maternal Grandfather Diabetes Paternal Grandmother Diabetes Son type 1 Coronary Artery Disease Son Hypertension Son Diabetes Son type 2 Coronary Artery Disease Son Hypertension Son Social History Tobacco Use Smoking status: Never Smokeless tobacco: Never Vaping Use Vaping status: Never Used Substance Use Topics Alcohol use: Not Currently Comment: occasionally Drug use: Never MEDICATIONS Current Outpatient Medications Medication Sig Dispense Refill ondansetron (ZOFRAN) 8 mg tablet Take 1 tablet by mouth every 8 hours as needed for nausea/vomiting for up to 180 doses. 90 tablet 1 diazePAM (VALIUM) 2 mg tablet Take 2 mg by mouth every 6 hours as needed. losartan (COZAAR) 25 mg tablet Take 25 mg by mouth. metoprolol tartrate, short acting, (LOPRESSOR) 25 mg tablet Take 12.5 mg by mouth. hydrocortisone 2.5 % cream APPLY TOPICALLY TWICE DAILY NEEDED FOR SKIN IRRITATION FOR 30 DAYS (Patient not taking: Reported on 09/09/2024) pantoprazole DR (PROTONIX) 40 mg tablet Take 40 mg by mouth. (Patient not taking: Reported on 09/09/2024) No current facility-administered medications for this visit. CURRENT ALLERGIES ALLERGIES Allergen Reactions Penicillins Hives Sulfadiazine Hives REVIEW OF SYSTEMS PAIN ASSESSMENT: General: No weight loss, malaise or fevers. Neuro: No Hx of stroke or seizures Respiratory: No history of current cough or dyspnea, or pneumonia in the past 6 weeks. No history of respiratory/pulmonary symptoms or problems Cardiovascular: No history of HTN requiring medication, no history of angina, CHF, AR, cardiac surgery or stents. Denies rest pain, gangrene or revascularization/amputation for PVD. No history of cardiovascular symptoms or problems. GI: See HPI : No history of UTI in past 6 weeks. No history of renal failure. Not currently on or requiring dialysis. No history of symptoms or problems. Endocrine: No history of diabetes. Has not taken steroids within the past 30 days. No history of endocrinological symptoms or problems. Hematology: No history of bleeding or clotting disorder. Pt is not taking anti-coagulation or platelet medications. No history of hematological symptoms or problems. Oncology: No history of CA metastasis, chemo within 30 days, or radiotherapy within 90 days. Has not lost 10% of body wt in 6 months. No history of oncological symptoms or problems. Psych: No history of psychiatric symptoms or problems. Musculoskeletal: Negative for joint pain or swelling, back pain or muscle pain. Skin: Negative for lesions, rash and itching. Anemia: No PHYSICAL EXAMINATION BP 166/78[did not take medicaiton today[ Pulse 49 Temp (Src) 97 (Temporal) Ht 5' 4 (1.63m) Wt 132 lb 4.4 oz (60.0kg) SpO2 97% BMI 22.69 kg/(m2). General Appearance: Well appearing, alert, in no acute distress, well-hydrated, well nourished. Skin: Skin color, texture, turgor normal, no suspicious rashes or lesions Head: Normocephalic, no masses, lesions, tenderness or abnormalities Oropharynx: Lips, mucosa, and tongue normal, teeth and gums normal, oropharynx normal Neck: Not examined Lungs: Unlabored on room air Heart: Not examined Extremities: No deformities, edema, skin discoloration, clubbing or cyanosis. Good capillary refill. Neuro: Gait normal. Reflexes normal and symmetric. Sensation grossly intact. Abdomen: Negative Spinning Bath Person present: Yes (son Jony) ASSESSMENT 79 F with obstructive jaundice s/p ERCP sphincterotomy and plastic stent placement into the left hepatic lobe. CT shows dilation of both left > right ducts and a 5.6 cm mass straddling the biliary bifurcation. CA 19-9 <2 and AFP 5, and CEA 2.2. EUS biopsy confirmed adenocarcinoma, no specification of the primary (hepatobiliary vs colorectal). Her PET scan confirmed avidity of the large liver lesion with abnormal PET avidity of a rectal polyp that was biopsied via colonoscopy and showed high grade dysplasia. The patient is symptomatic from the rectal mass (pain). RECOMMENDATION I explained the findings to the patient and her son. I clinically suspect this to be situation of rectal primary with liver metastasis. The differential diagnosis includes a primary liver malignancy with a synchronous rectal polyp (likely malignant). To establish the correct diagnosis I recommended proceeding with the transanal excision of the rectal tumor (scheduled with Dr. Duarte on 09/20/2024) and obtain the EUS FNA slides from 06/28/2024 ([facility]) and have them reviewed at [facility]. We might consider another biopsy if stains are required to determine the origin of the malignant cells in the liver. Based on the data we gather, we will determine the next steps of treatment but I briefly discussed with the patient systemic therapy (colorectal vs liver malignancies), radiation, Y90 and surgical resection. I explained that the liver mass, in its current size and location, is unresectable and she understood. We will meet again after her CORS procedure. Medical Decision Making: Problems: High: Illness/injury w/ threat to life/body function Data: Unique source(s) for external note(s) reviewed: 3+ Unique test result(s) reviewed: 3+ Assessment requiring an independent historian(s) Independent interpretation of test from other physician/QHCP Discussed management or test w/ external physician/QHCP/source Risk: High: High risk from testing/treatment Medical Decision Making Level: 5 - High Hugo Taylor MD [facility] [place] [facility] / [facility] September 09, 2024 Referring Provider: REUBEN ANGELA [[id number]] Allergies As of Date: 09/09/2024 Noted Allergy Reaction PENICILLINS 06/28/2024 4 - Hives SULFADIAZINE 06/28/2024 4 - Hives Date Reviewed: 09/09/2024 Reviewed by: Bonny Mora MA - Fully Assessed Reason for Visit: Consult [173] Cmt: Consult IH cholangiocarcinoma Visit Diagnosis:Malignant neoplasm of liver, unspecified liver malignancy type (HCC) [C22.9] Prescriptions as of 09/09/2024 - ondansetron (ZOFRAN) 8 mg tablet Take 1 tablet by mouth every 8 hours as needed for nausea/vomiting for up to 180 doses. - diazePAM (VALIUM) 2 mg tablet Take [...] by mouth. Problem List As Of Date 09/09/2024 Noted Resolved 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 (H*08/04/2024 Encounter Status:Closed by HUGO TAYLOR on 09/09/24 PROGRESS Observed: 09/09/2024 1:49 PM Status: COMPLETED Source: [facility] HNO ID: [id number] Author: BONNY MORA MA Service: ? Author Type: Detective Bureau Chief Type: Progress Notes Filed: 09/09/2024 14:48 Note Text: What is the reason for your visit today? Consult IH cholangiocarcinoma Who is your referring physician? Dr Alexis Are you having poor oral intake? NO Have you had unintentional weight loss of 15 lbs/7 Kg in the last 3-6 months? NO Bowels: regular Wound: Temperature: No Drains: No PROGRESS Observed: 09/06/2024 11:31 AM Status: COMPLETED Source: [facility] HNO ID: [id number] Author: JUAN ALBERTO RUANO RN Service: ? Author Type: Registered Nurse Type: Progress Notes Filed: 09/06/2024 11:37 Note Text: AMBULATORY PATIENT EDUCATION NOTE SURGICAL PREPARATION: TAE and sigmoidoscopy SURGERY DATE: 09-20-24 DIAGNOSIS: rectal polyp Originally scheduled at [facility] on 09/[address] Duarte decided she wants to do a flex sig at the same time so patient moved to hospital on 09/20 READINESS TO LEARN COGNITIVE ABILITY: Alert and oriented MOTIVATION TO LEARN: Eager FAMILY SUPPORT: Moderate - Family present but overwhelmed son stayed in waiting room. Patient reports he sons take time off work to bring her to appointments PHYSICAL LIMITATIONS AFFECTING LEARNING: None METHOD OF INSTRUCTION: Verbal and Written instruction - handouts provided SUPPLEMENTAL MATERIAL: - Location of surgery/ date - patient aware date is tentative and subject to change - [facility] appointment needed with in 30 days of surgery - Bowel preparations prior to surgery: * 2 enemas *Miralax bowel prep instructions provided *May have sips of water up until 3 hrs of arrival time for surgery WOUND CARE - Post operative wound care expectations reviewed. Anorectal post op instructions handout provided on wound care DIET- handouts provided on diet post op: -Post op diet following EUA = avoiding constipation Patient (and Family member) acknowledges and understands. They have contact phone number for further concerns and for post operative questions. Staff Message sent to [place] licensing registration examiner with procedure/time/date for patient. TIME SPENT: 15 min Electronically Signed By: Juan Alberto CARLOS, RN DDSI Specialty Bale Tie Machine Operator CNPN Observed: 09/06/2024 12:00 AM Status: COMPLETED Source: [facility] Telephone ([facility]) JENNA KUMAR ([id number]) 1945 F Date Time Provider Department 09/06/24 OLIVIA DUARTE [facility] During your visit today, we recorded the following information about you: Juan Alberto Ruano, RN 09/06/2024 11:10 AM Signed Received call yesterday from [facility] saying that patient was refusing to have PACC done stating she recently had procedures done in [place] and she was fine. In the meantime, Dr. Duarte decided she also wants to do a sigmoidoscopy at the same time and TAE so the patient will need to be moved to [facility] instead of [facility]. Called and spoke with patient. Explained reasons why she needs to have PACC done and unfortunately, this is a requirement of [facility]. Explained that we need to move her procedure to the hospital to include sigmoidoscopy. We agreed upon 09/20/24 as her new procedure date and this also gives [place] She is agreeable to this Allergies As of Date: 09/06/2024 Noted Allergy Reaction PENICILLINS 06/28/2024 4 - Hives SULFADIAZINE 06/28/2024 4 - Hives Date Reviewed: 09/05/2024 Reviewed by: Anuradha Unger OCCA - Fully Assessed Prescriptions as of 09/06/2024 - ondansetron (ZOFRAN) 8 mg tablet Take 1 tablet by mouth every 8 hours as needed for nausea/vomiting for up to 180 doses. - diazePAM (VALIUM) 2 mg tablet Take [...] by mouth. Problem List As Of Date 09/06/2024 Noted Resolved 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 (H*08/04/2024 Encounter Status:Closed by JUAN ALBERTO RUANO on 09/06/24 CNCNPATED Observed: 09/06/2024 12:00 AM Status: COMPLETED Source: [facility] ([facility]) JENNA KUMAR ([id number]) 1945 Date Time Provider Department 09/06/24 JUAN ALBERTO RUANO [facility] Reason for Visit: Rectal polyp [Other] During your visit today, we recorded the following information about you: Allergies As of Date: 09/06/2024 Noted Allergy Reaction PENICILLINS 06/28/2024 4 - Hives SULFADIAZINE 06/28/2024 4 - Hives Date Reviewed: 09/05/2024 Reviewed by: Anuradha Unger OCCA - Fully Assessed Prescriptions as of 09/06/2024 - ondansetron (ZOFRAN) 8 mg tablet Take 1 tablet by mouth every 8 hours as needed for nausea/vomiting for up to 180 doses. - diazePAM (VALIUM) 2 mg tablet Take [...] mg tablet Take 40 mg by mouth. Encounter Status:Closed by JUAN ALBERTO RUANO on 09/06/24 CNOV Observed: 09/05/2024 1:20 PM Status: COMPLETED Source: [facility] Office Visit ([facility]) JENNA KUMAR ([id number]) 1945 F Date Time Provider Department 09/05/24 1:20 PM OLIVIA DUARTE [facility] During your visit today, we recorded the following information about you: Temperature Pulse Blood pressure 97.1 degrees 88/minute 162/88 Olivia Duarte MD 09/05/2024 4:28 PM Addendum [facility] NOTE August 22, 2024 Jenna Kumar 79 year old This consult was requested by Dr. Angela and my final recommendations will be communicated to the requesting health care provider by way of the shared medical record for internal providers or letter via the [employer] for external providers. Chief Complaint: rectal mass History of Present Illness: Jenna Kumar is a Patient is an 79-year-old woman presenting for evaluation of a rectal mass and associated symptoms. She was referred by her oncologist to rule out rectal cancer. A few months ago, patient presented to the emergency department with pruritus and jaundice. During this time, she underwent an extensive workup, including the placement of stents and a liver biopsy, which showed adenocarcinoma of unknown origin concerning for metastasis. A colonoscopy revealed a rectal mass extending from the dentate line to the anal verge, which was biopsied twice and did not return as rectal cancer. A PET scan showed interval development of circumferential multifocal metabolically active rectal wall thickening. In addition to the liver lesion. She has since completed MRI liver, and has an upcoming appt with Dr. Taylor on Monday. Patient reports that her bowel movements have become harder, and she has difficulty passing them. She also experiences rectal bleeding when wiping, which she initially attributed to hemorrhoids. She has been wearing Depends to prevent any accidents. She denies any fecal incontinence and is currently taking Metamucil every morning and senna in the evening to manage constipation. She notes that her stool is of normal color, though it was white during her episode of jaundice. She also reports occasional light mucous discharge from the rectum. Patient denies any pain associated with her rectal symptoms. She has no family history of colon cancer, though her mother had melanoma. She is a non-smoker. Functionally, she is doing well and can perform all her activities at home without the use of a walker. MRI lumbar spine - [facility] External Imaging - MRI [ID [id number]] -No evidence for osseous metastasis PAST MEDICAL HISTORY Diagnosis Date OK (generalized anxiety disorder) High risk medication use Hypercholesterolemia Hypertension Obstructive jaundice (HCC) Primary adenocarcinoma of liver (HCC) Tubulovillous adenoma of rectum PAST SURGICAL HISTORY Procedure Laterality Date BILIARY STENT Current Outpatient Medications Medication Sig Dispense Refill ondansetron (ZOFRAN) 8 mg tablet Take 1 tablet by mouth every 8 hours as needed for nausea/vomiting for up to 180 doses. 90 tablet 1 diazePAM (VALIUM) 2 mg tablet Take 2 [...] mouth. (Patient not taking: Reported on 07/19/2024) No current facility-administered medications for this visit. ALLERGIES Allergen Reactions Penicillins Hives Sulfadiazine Hives FAMILY HISTORY Problem Relation Age of Onset Melanoma Mother Heart disease Father No Known Problems Sister No Known Problems Maternal Grandmother No Known Problems Maternal Grandfather Diabetes Paternal Grandmother Diabetes Son type 1 Coronary Artery Disease Son Hypertension Son Diabetes Son type 2 Coronary Artery Disease Son Hypertension Son Social History Tobacco Use Smoking status: Never Smokeless tobacco: Never Vaping Use Vaping status: Never Used Substance Use Topics Alcohol use: Not Currently Comment: occasionally Drug use: Never Physical Exam: BP 162/88 (BP Site: Right Arm, BP Position: Sitting, BP Cuff Size: Regular Adult) Pulse 88 Temp 36.2 ?C (97.1 ?F) LMP (LMP Unknown) SpO2 97% General Appearance: Well appearing, alert, in no acute distress, well-hydrated, well nourished. Abdomen: soft Anorectal: External exam reveals prolapsing polypoid distal rectal lesion, soft, friable. ~3cm from right lateral aspect. Digital rectal exam reveals no other palpable mass Spinning Bath Person present: Yes The sensitive examination was discussed with the Patient or Patient's Authorized Health Insurance Agent. As applicable, any other physician, advance practice provider, medical student, or other health professional student that will be observing or involved in the sensitive examination for educational or training purposes was discussed with the Patient or Authorized Health Insurance Agent. The Patient or Authorized Health Insurance Agent has agreed to proceed with the sensitive examination. (Sensitive examination includes inspection and/or palpation of the breasts, pelvis, prostate and anorectal regions) MRI LIVER 09/03/2024 Scan on 09/03/2024 7:51 AM by Provider, Philip, TODDC: MRI PET/CT 07/23/24 IMPRESSION PRIMARY DISEASE SITE: * Circumferential abnormal [...] indeterminate significance. * Trace LEFT pleural effusion. Colonoscopy 07/08/24 - [facility] Scan on 09/03/2024 3:39 PM by Diana Yanes: 07/08/24 Colonoscopy from [facility] - Normal colonic mucosa with no significant abnormalities identified in the cecum, ascending, transverse, and descending colon. - Presence of a large laterally spreading polypoid rectal mass measuring 5 cm, involving the full circumference of the rectum and extending from the dentate line up to 5 cm from the anal verge. Multiple biopsies were obtained. Pathology 07/08/24 Final Diagnosis A. 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 Colon, rectal mass #2, biopsy: - Tubular adenoma Final Diagnosis 06/28/2024 A. Common bile duct, biopsy: -Adenocarcinoma. B. Rectal mass, biopsy: -Superficial fragments of tubulovillous adenoma. -No invasive neoplasm or high-grade dysplasia identified. -See comment. CEA 2.2 Assessment Assessment and Plan: Jenna Kumar is a 79 year old woman with recent finding of a liver lesion after presenting with jaundice with biopsy consistent with adenocarcinoma of unknown origin. 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 On exam, the rectal lesion is consistent with advanced polyp as it is soft to palpation. Low suspicion for rectal cancer. I discussed with patient that given 2 prior negative biopsy, my recommendation will be for transanal excision. Surgical steps recovery risk-benefit of TAE of rectal lesion were discussed in detail. This will help with definitive diagnosis. Regarding her liver lesion she has a follow-up with [facility] on Monday for discussion of management. Will schedule for TAE unless [facility] is planning for surgery and can co-ordinate at the time Will likely be at [place], so can perform flex sig at the time Medical Decision Making: Data Reviewed: Tests AND Documents Reviewed/ordered: Review of prior notes from GI, med/onc Review of Pathology Review of Imaging: MRI Abdomen, PET Scan Review of Labs: CEA Review of Procedures / Tests: Colonoscopy I have independently interpreted: MRI Pelvis, PET Scan I have discussed Jenna Kumar's treatment plan and/or results with patient. 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 - diazePAM (VALIUM) 2 mg tablet Take [...] by mouth. Problem List As Of Date 09/05/2024 Noted Resolved 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 (H*08/04/2024 Encounter Status:Closed by OLIVIA DUARTE on 09/05/24 PROGRESS Observed: 09/05/2024 1:20 PM Status: COMPLETED Source: [facility] HNO ID: [id number] Author: OLIVIA DUARTE MD Service: ? Author Type: Physician Type: Progress Notes Filed: 09/05/2024 16:28 Note Text: [facility] NOTE August 22, 2024 Jenna Kumar 79 year old This consult was requested by Dr. Angela and my final recommendations will be communicated to the requesting health care provider by way of the shared medical record for internal providers or letter via the [employer] for external providers. Chief Complaint: rectal mass History of Present Illness: Jenna Kumar is a Patient is an 79-year-old woman presenting for evaluation of a rectal mass and associated symptoms. She was referred by her oncologist to rule out rectal cancer. A few months ago, patient presented to the emergency department with pruritus and jaundice. During this time, she underwent an extensive workup, including the placement of stents and a liver biopsy, which showed adenocarcinoma of unknown origin concerning for metastasis. A colonoscopy revealed a rectal mass extending from the dentate line to the anal verge, which was biopsied twice and did not return as rectal cancer. A PET scan showed interval development of circumferential multifocal metabolically active rectal wall thickening. In addition to the liver lesion. She has since completed MRI liver, and has an upcoming appt with Dr. Taylor on Monday. Patient reports that her bowel movements have become harder, and she has difficulty passing them. She also experiences rectal bleeding when wiping, which she initially attributed to hemorrhoids. She has been wearing Depends to prevent any accidents. She denies any fecal incontinence and is currently taking Metamucil every morning and senna in the evening to manage constipation. She notes that her stool is of normal color, though it was white during her episode of jaundice. She also reports occasional light mucous discharge from the rectum. Patient denies any pain associated with her rectal symptoms. She has no family history of colon cancer, though her mother had melanoma. She is a non-smoker. Functionally, she is doing well and can perform all her activities at home without the use of a walker. MRI lumbar spine - [facility] External Imaging - MRI [ID [id number]] -No evidence for osseous metastasis PAST MEDICAL HISTORY Diagnosis Date OK (generalized anxiety disorder) High risk medication use Hypercholesterolemia Hypertension Obstructive jaundice (HCC) Primary adenocarcinoma of liver (HCC) Tubulovillous adenoma of rectum PAST SURGICAL HISTORY Procedure Laterality Date BILIARY STENT Current Outpatient Medications Medication Sig Dispense Refill ondansetron (ZOFRAN) 8 mg tablet Take 1 tablet by mouth every 8 hours as needed for nausea/vomiting for up to 180 doses. 90 tablet 1 diazePAM (VALIUM) 2 mg tablet Take 2 [...] mouth. (Patient not taking: Reported on 07/19/2024) No current facility-administered medications for this visit. ALLERGIES Allergen Reactions Penicillins Hives Sulfadiazine Hives FAMILY HISTORY Problem Relation Age of Onset Melanoma Mother Heart disease Father No Known Problems Sister No Known Problems Maternal Grandmother No Known Problems Maternal Grandfather Diabetes Paternal Grandmother Diabetes Son type 1 Coronary Artery Disease Son Hypertension Son Diabetes Son type 2 Coronary Artery Disease Son Hypertension Son Social History Tobacco Use Smoking status: Never Smokeless tobacco: Never Vaping Use Vaping status: Never Used Substance Use Topics Alcohol use: Not Currently Comment: occasionally Drug use: Never Physical Exam: BP 162/88 (BP Site: Right Arm, BP Position: Sitting, BP Cuff Size: Regular Adult) Pulse 88 Temp 36.2 ?C (97.1 ?F) LMP (LMP Unknown) SpO2 97% General Appearance: Well appearing, alert, in no acute distress, well-hydrated, well nourished. Abdomen: soft Anorectal: External exam reveals prolapsing polypoid distal rectal lesion, soft, friable. ~3cm from right lateral aspect. Digital rectal exam reveals no other palpable mass Spinning Bath Person present: Yes The sensitive examination was discussed with the Patient or Patient's Authorized Health Insurance Agent. As applicable, any other physician, advance practice provider, medical student, or other health professional student that will be observing or involved in the sensitive examination for educational or training purposes was discussed with the Patient or Authorized Health Insurance Agent. The Patient or Authorized Health Insurance Agent has agreed to proceed with the sensitive examination. (Sensitive examination includes inspection and/or palpation of the breasts, pelvis, prostate and anorectal regions) MRI LIVER 09/03/2024 Scan on 09/03/2024 7:51 AM by Provider, Philip, ILA: MRI PET/CT 07/23/24 IMPRESSION PRIMARY DISEASE SITE: * Circumferential abnormal [...] indeterminate significance. * Trace LEFT pleural effusion. Colonoscopy 07/08/24 - [facility] Scan on 09/03/2024 3:39 PM by Diana Yanes: 07/08/24 Colonoscopy from [facility] - Normal colonic mucosa with no significant abnormalities identified in the cecum, ascending, transverse, and descending colon. - Presence of a large laterally spreading polypoid rectal mass measuring 5 cm, involving the full circumference of the rectum and extending from the dentate line up to 5 cm from the anal verge. Multiple biopsies were obtained. Pathology 07/08/24 Final Diagnosis A. 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 Colon, rectal mass #2, biopsy: - Tubular adenoma Final Diagnosis 06/28/2024 A. Common bile duct, biopsy: -Adenocarcinoma. B. Rectal mass, biopsy: -Superficial fragments of tubulovillous adenoma. -No invasive neoplasm or high-grade dysplasia identified. -See comment. CEA 2.2 Assessment Assessment and Plan: Jenna Kumar is a 79 year old woman with recent finding of a liver lesion after presenting with jaundice with biopsy consistent with adenocarcinoma of unknown origin. 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 On exam, the rectal lesion is consistent with advanced polyp as it is soft to palpation. Low suspicion for rectal cancer. I discussed with patient that given 2 prior negative biopsy, my recommendation will be for transanal excision. Surgical steps recovery risk-benefit of TAE of rectal lesion were discussed in detail. This will help with definitive diagnosis. Regarding her liver lesion she has a follow-up with [facility] on Monday for discussion of management. Will schedule for TAE unless [facility] is planning for surgery and can co-ordinate at the time Will likely be at [facility], so can perform flex sig at the time Medical Decision Making: Data Reviewed: Tests AND Documents Reviewed/ordered: Review of prior notes from GI, med/onc Review of Pathology Review of Imaging: MRI Abdomen, PET Scan Review of Labs: CEA Review of Procedures / Tests: Colonoscopy I have independently interpreted: MRI Pelvis, PET Scan I have discussed Jenna Kumar's treatment plan and/or results with patient. Risk of morbidity, mortality and/or complications of treatment plan: moderate Olivia Duarte MD Colorectal Surgery CNPN Observed: 08/26/2024 12:00 AM Status: COMPLETED Source: [facility] Telephone (NCCAP) JENNA KUMAR ([id number]) 1945 F Date Time Provider Department 08/26/24 REUBEN ANGELA During your visit today, we recorded the following information about you: Krystle Silva 08/26/2024 11:22 AM Signed Triage: Please see for results. Determine follow up? Patient does not have a future appointment scheduled with Dr. Angela. According to patient's appointments, she is already scheduled with Dr. Duarte of Colorectal Surgery on 09/05. Delisa Alcazar RN 08/29/2024 8:05 AM Signed Naya: Can you please watch for MRI Liver results MARTI Aguilera [facility], Zoie Goddard 08/30/2024 11:45 AM Signed Spoke with Davina at [facility]. She said report had not been read yet, but she would let the radiologist know we were looking for the report so it would get bumped up on the list to be read. Delisa Alcazar RN 09/02/2024 12:[address] [facility] will reach out to radiologist to request read/final report for appt 08/[address] Duarte. MARTI Aguilera [facility], [place] 09/03/2024 8:06 AM Signed Report scanned. Let me know if you want the images. Delisa Alcazar RN 09/03/2024 9:27 AM Signed Naya: Please obtain images MARTI Aguilera [facility], [place] 09/03/2024 9:51 AM Signed Images are uploaded. Delisa Alcazar RN 09/03/2024 11:03 AM Addendum Pt updated on need to see Hepatobiliary for liver mass. She is agreeable to plan of care and will await call to schedule. Jose: please sign pended referral/ would you like to see her following all appts for follow up? PSS: Please call to schedule with Dr Taylor/[facility] group MARTI Aguilera Erica J 09/03/2024 2:12 PM Signed Okay to schedule with Dr. Haile. There is availability next week for new consult if patient is able. New: IH cholangiocarcinoma; ref by Dr. Alexis; MRI 09/02/2024 Delisa Alcazar RN 09/03/2024 2:44 PM Signed Pt was scheduled with Dr Taylor Monday09/09/24. Jose: please sign referral/ advise on follow up MARTI Aguilera Vivek, MD 09/04/2024 9:10 AM Signed Let's see what both providers think before scheduling her back. Reuben Angela MD 09/11/2024 12:56 PM Signed Looks like she is undergoing additional biopsies on 09/20 - I will need to see her about 1 week or so after to review pathology. Angelica Barahona [facility] 09/12/2024 2:40 PM Signed I called the Patient and left her a Voicemail to call our office back to schedule her follow up with Dr. Garcia about a week after her Biopsy's on 09/20/24. BRIANNA Lambert Trisha 09/13/2024 10:41 AM Signed Jenna returned our call and is scheduled on 09/30/24 at 1:[address] Jose sheikh PSS Allergies As of Date: 08/26/2024 Noted Allergy Reaction PENICILLINS 06/28/2024 4 - Hives SULFADIAZINE 06/28/2024 4 - Hives Date Reviewed: 08/19/2024 Reviewed by: Davina Hopkins APRN.THEATER PROJECTIONIST - Fully Assessed Reason for Visit: Results [95] Primary Visit Diagnosis:Liver mass [R16.0] Order(s):CONSULT TO GENERAL SURGERY [9011] Order #: [id number]: 1 FUTURE Prescriptions as of 09/13/2024 - ondansetron (ZOFRAN) 8 mg tablet Take 1 tablet by mouth every 8 hours as needed for nausea/vomiting for up to 180 doses. - diazePAM (VALIUM) 2 mg tablet Take 2 mg by mouth every 6 hours as needed. - hydrocortisone 2.5 % cream - losartan (COZAAR) 25 mg tablet Take 25 mg by mouth. - metoprolol tartrate, short acting, (LOPRESSOR) 25 mg tablet Take 12.5 mg by mouth two times a day. Problem List As Of Date 08/26/2024 Noted Resolved 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 (H*08/04/2024 Encounter Status:Closed by MAGDALENO HIGGINS on 09/05/24 PROGRESS Observed: 08/22/2024 4:40 PM Status: COMPLETED Source: [facility] HNO ID: [id number] Author: REUBEN ANGELA MD Service: ? Author Type: Physician Type: Progress Notes Filed: 08/26/2024 07:54 Note Text: NAME: Jenna Kumar [facility] NO.: [id number] DATE OF SERVICE: August 22, 2024 ([place]) Some elements in this clinic note that are critical to medical decision making have been carefully reviewed and included from a prior clinic note dated: August 01, 2024 ([place]) Referring Provider: Mayito Costello, DO Additional Clinicians involved in Jenna Kumar's care: Bradley Díaz VIRTUAL VISIT PROGRESS NOTE This is a virtual visit using [employer] Video Call. It required patient-provider interaction for the medical decision making as documented below. I have communicated my name and active licensure. The patient's identity and physical location were verified at the time of this visit. Either the patient or their legal financial service representative has been informed of the [...] appears younger than stated age. Foundation One PLAN: MRI Liver pending - next week at [facility] Triage please call results. Referral to [facility] @ [facility] for rectal mass - confirm malignancy - prior negative biopsy. 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 MRI liver and MRI spine. Colorectal Surgery consult for rectal mass. Following MRI liver, will refer to [facility]. Await Foundation One testing. 07/23/2024 - PET/CT: PRIMARY DISEASE SITE: Circumferential [...] significance. Trace LEFT pleural effusion. 07/23/2024 - [facility]IMBO[facility] Liquid CDx drawn: Results pasted below August 22, 2024's Updated Visit 07/19/2024 - CA 19-9: <2.0, CEA: 2.9 [...] 4.6, Albumin: 1.7 07/01/2024-07/11/2024 - ER at [facility] after a fall due to lightheadedness, dizziness, and hypotension - transferred and admitted at [facility] for GI bleed 06/28/2024 - ERCP AND Sigmoidoscopy: Dr. Bradley Díaz at [facility] High grade intrahepatic duct mass/stricture, large left [...] in part B may not be entirely financial service representative of a larger mass. 06/21/2024 [...] stool caliber, and pruritus Updated Visit, August 22, 2024: Virtual Visit MRI spine negative. Will proceed with appointment with [facility] for rectal mass that I believe is malignant and a second primary. Will need MRI of liver which is set up and then appointment to see [facility] also at [facility] to recommend resectability. Updated Visit, August 01, 2024: Virtual Visit Jenna presented for discussion of tumor board discussion that occurred this morning. She feels ok. She is due for stent exchange in the next week. Will need imaging of spine as well as imaging of liver via MRI. Will also refer to [facility] and [facility] at [facility] for further diagnostics. Initial Visit, July 19, 2024: Jenna Kumar presents today for a Hematology and Oncology evaluation. She is joined by her sons, Jony and Kandis. Jenna is an 79 year old female who with newly diagnosed adenocarcinoma. She developed jaundice, dark urine, chang colored stool, narrowing of her stool caliber, and pruritus in late 05/2024. LFTs in 06/2024 were abnormal, subsequent imaging showed a region in segment 4A and B and 8 that was suspicious for neoplasm AND a suspicious appearing rectal mass. She underwent an outpatient ERCP and Sigmoidoscopy on 06/28/2024 at [facility]. 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 She had a fall due to lightheadedness, dizziness, and hypotension and presented to the ER at [facility] on 07/01/2024. She was found to have a GI bleed and was transferred to [facility] for management. Scopes were repeated while inpatient [...] life with treatment. 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 She does have exposure to secondhand smoke. Prior History form [facility] Discharge Summary on 07/11/2024: Hospital Course: Ms. Jenna Kumar is an 79 y.o. female transferred from [facility] to [facility] ER when she presented to [facility] for recurrent GI bleed increased fatigue weakness. She was found to have hemoglobin around 7 and blood pressure was low patient was admitted at [facility] on 06/28/2024 with diagnosis of jaundice pruritus [...] Allergen Reactions Penicillins Hives Sulfadiazine Hives MEDICATIONS: ondansetron (ZOFRAN) 8 mg tablet Take 1 tablet by mouth every 8 hours as needed for nausea/vomiting for up to 180 doses. 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) 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 (HCC) PAST MEDICAL HISTORY Diagnosis Date OK (generalized anxiety disorder) High risk medication use [...] Hypertension Son I spent a total of 30 minutes on the date of the service [...] CPE Hematology and Oncology Services Provided at: [place], [place] CC: Mayito Costello DO [address] [facility] [id number] Bradley Díaz MD 36 Observed: 08/21/2024 9:25 AM Status: COMPLETED Source: [facility] Called to see about scheduli ng an repeat ERCP in 6-8 weeks from previous procedure on 08-13-24, as this time she will wait and call me she is following up with her Oncologist in [place]. TELEPHONE Observed: 08/21/2024 12:00 AM Status: COMPLETED Source: [facility] [id number] Jenna Kumar 0 1945 F Date Provider Department Center 08/21/2024 [id number] No family history on file CNPN Observed: 08/20/2024 12:00 AM Status: COMPLETED Source: [facility] Telephone (HEMASA) JENNA KUMAR ([id number]) 1945 F Date Time Provider Department 08/20/24 ASHLEY ADKINS During your visit today, we recorded the following information about you: Ashley Adkins RN 08/20/2024 10:20 AM Signed FYI: Pt reports she is feeling much better since taking the Zofran for her nausea. Thanks you for your help! Ashley Adkins RN Allergies As of Date: 08/20/2024 Noted Allergy Reaction PENICILLINS 06/28/2024 4 - Hives SULFADIAZINE 06/28/2024 4 - Hives Date Reviewed: 08/19/2024 Reviewed by: Davina Hopkins APRN.THEATER PROJECTIONIST - Fully Assessed Reason for Visit: Patient Update [1234] Cmt: Nausea Prescriptions as of 08/20/2024 - ondansetron (ZOFRAN) 8 mg tablet Take 1 tablet by mouth every 8 hours as needed for nausea/vomiting for up to 180 doses. - diazePAM (VALIUM) 2 mg tablet Take [...] by mouth. Problem List As Of Date 08/20/2024 Noted Resolved 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 (H*08/04/2024 Encounter Status:Closed by ASHLEY ADKINS on 08/20/24 MERCEDES Observed: 08/19/2024 12:00 AM Status: COMPLETED Source: [facility] Telephone (HEMASA) JENNA KUMAR ([id number]) 1945 F Date Time Provider Department 08/19/24 DELISA ALCAZAR During your visit today, we recorded the following information about you: Delisa Alcazar RN 08/19/2024 11:01 AM Signed Pt c/o nausea/loss of appetite. She has an appt 08/22, but symptoms cannot wait. Jose: please advise: Zofran pended to preferred pharmacy, if agreeable MARTI Aguilera Natalie, RN 08/19/2024 11:01 AM Signed Naya: Please obtain MRI reports/imaging from [facility] (pt was scheduled 08/12/24) MARTI Aguilera Jennifer L 08/19/2024 11:23 AM Signed MRI report scanned. Delisa Alcazar RN 08/19/2024 3:47 PM Signed Pt calling to make sure we send something in for her nausea before end of day. MARTI Aguilera Holly, APRN.SANDHYA 08/19/2024 3:53 PM Signed The following approved medication requests have been transmitted electronically. Requested Prescriptions Signed Prescriptions Disp Refills ondansetron (ZOFRAN) 8 mg tablet 90 tablet 1 Sig: Take 1 tablet by mouth every 8 hours as needed for nausea/vomiting for up to 180 doses. Authorizing Provider: DAVINA HOPKINS APRN.Delisa Palomo RN 08/19/2024 3:55 PM Signed Pt notified. Encouraged to call if RX doesn't relieve nausea, or for any further concerns. MARTI Aguilera Vivek, MD 08/20/2024 8:44 AM Signed Negative for osseous mets of T and L spine - Did she have the liver MRI yet? Thanks Here were tumor board recs - We did not do foundation one because of possible early stage. MRI liver and MRI spine Colorectal Surgery consult for rectal mass Following MRI liver, will refer to [facility]. Delisa Alcazar RN 08/20/2024 10:20 AM Signed Pt reports nausea 90% improved with Zofran. Liver MRI completed at [facility] also. Naya: Please obtain and send to Jose for review [facility] 08/20/20[facility] 10:59 AM Signed No MRI Liver done at [facility]. Delisa Alcazar RN 08/20/2024 1:17 PM Signed Called [facility] to verify No MRI liver completed. Jose: I do not see an order placed/ pended for review and sign MARTI Aguilera Natalie, RN 08/20/2024 1:17 PM Signed Addended by: DELISA ALCAZAR on: 08/20/2024 01:17 PM Modules accepted: Reuben Tracey MD 08/20/2024 1:20 PM Signed I'd like it to be done with eovist. - I don't know if they have that at [facility]. Reuben Angela MD 08/20/2024 1:20 PM Signed Addended by: REUBEN ANGELA on: 08/20/2024 01:20 PM Modules accepted: Delisa Walker RN 08/20/2024 1:30 PM Signed Pt notified of need still for MRI liver. She is agreeable to proceed, but isn't happy is was not completed previously. Order faxed to [facility] for authorization/scheduling. Jose: Proceed with telephone visit 08/22 or postpone until MRI completed? MARTI Aguilera Natalie, RN 08/20/2024 1:55 PM Signed Called to [facility] scheduling to verify receipt of MRI orders. Mohsen will call pt to schedule mid week, next week. Will verify appt with pt when I call her back with Jose's appt response. MARTI Aguilera Natalie, RN 08/21/2024 8:01 AM Signed Jose: Please review and sign pended order PSS: Please refer to colorectal surgery, [facility] group at [facility] please MARTI Aguilera Natalie, RN 08/21/2024 8:02 AM Signed Addended by: DELISA ALCAZAR on: 08/21/2024 08:02 AM Modules accepted: Orders Oskar Nelson 08/21/2024 9:25 AM Signed HI there, This patient needs to see [facility] for a consult. Can you please help us with this? Thank you Delisa Alcazar RN 08/21/2024 12:37 PM Signed Called and discussed importance of proceeding with colorectal, as Dr Garcia ordered. Pt is now agreeable and will call to set up (she was given number by colorectal scheduling team). Liver MRI to be completed Saturday 08/26 at [facility]. Delisa Alcazar RN Colorectal scheduling team: please verify pt calls to set up appt. Thank you! Delisa Alcazar RN 08/22/2024 9:49 AM Signed Please sign pended Colorectal referral order MARTI Aguilera Vivek, MD 08/22/2024 12:09 PM Signed Signed thank you Reuben Angela MD 08/22/2024 12:09 PM Signed Addended by: REUBEN ANGELA on: 08/22/2024 12:09 PM Modules accepted: Orders Delisa Alcazar RN 08/22/2024 12:12 PM Signed Pt scheduled 09/05/[address] Duarte. 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 No [...] protocol in the MR contrast administration guidelines link.Disp: 1 eachRfl: 0 MRI LIVER (EOVIST) WO/W IVCON [[id number]] Order #: [id number] FUTURE [] iv contrast (will be provided with radiology test)MRI LIVER (EOVIST) Inject, intravenously, once for 1 dose. No [...] protocol in the MR contrast administration guidelines link.Disp: 1 eachRfl: 0 CONSULT TO COLO-RECTAL SURGERY [] Order #: [id number]: 1 FUTURE Prescriptions as of 08/22/2024 - ondansetron (ZOFRAN) 8 mg tablet Take 1 tablet by mouth every 8 hours as needed for nausea/vomiting for up to 180 doses. - diazePAM (VALIUM) 2 mg tablet Take [...] by mouth. Problem List As Of Date 08/19/2024 Noted Resolved 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 (H*08/04/2024 Prescriptions ordered this encounter Disp Refills Start End ONDANSETRON HCL 8 MG TABLET 90 t* 1 08/19/2024 Route: ORAL Sig: Take 1 tablet by mouth every 8 hours as needed for nausea/vomiting for up to 180 doses. IV CONTRAST (RADIOLOGY PROCEDURE) - * 1 ea* 0 08/20/2024 08/21/2024 Class: In Office Sig: MRI ABDOMEN Inject, intravenously, once for 1 dose. No [...] in the MR contrast administration guidelines link. IV CONTRAST (RADIOLOGY PROCEDURE) - * 1 ea* 0 08/20/2024 08/21/2024 Class: In Office Sig: MRI LIVER (EOVIST) Inject, intravenously, once for 1 dose. No [...] in the MR contrast administration guidelines link. Encounter Status:Closed by DELISA ALCAZAR on 08/19/24 MERCEDES Observed: 08/19/2024 12:00 AM Status: COMPLETED Source: [facility] Telephone (HEMASA) JENNA KUMAR ([id number]) 1945 F Date Time Provider Department 08/19/24 ASHLEY ADKINS During your visit today, we recorded the following information about you: Ashley Adkins, RN 08/19/2024 4:18 PM Signed Pt reports she received a bill for a medication called liquid cdx . Informed pt that [facility] liquid CDX is a blood test and not a medication. Explained to pt that what she received was not a bill, but likely an EOB. Went on to explain she would be contacted directly by [facility] if her OOP expense is greater than $100. Informed pt that the test results will be used per Dr Angela as part of her treatment planning. Pt verbalizes understanding. No additional questions noted. Ashley Adkins RN Allergies As of Date: 08/19/2024 Noted Allergy Reaction PENICILLINS 06/28/2024 4 - Hives SULFADIAZINE 06/28/2024 4 - Hives Date Reviewed: 08/19/2024 Reviewed by: Davina Hopkins APRN.THEATER PROJECTIONIST - Fully Assessed Reason for Visit: Orders [681] Cmt: [facility] Prescriptions as of 08/19/2024 - ondansetron (ZOFRAN) 8 mg tablet Take 1 tablet by mouth every 8 hours as needed for nausea/vomiting for up to 180 doses. - diazePAM (VALIUM) 2 mg tablet Take [...] by mouth. Problem List As Of Date 08/19/2024 Noted Resolved 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 (H*08/04/2024 Encounter Status:Closed by ASHLEY ADKINS on 08/19/24 ANES Observed: 08/13/2024 12:32 PM Status: COMPLETED Source: [facility] Patient: Jenna Kumar Procedure Summary Date: 08/13/24 Room / Location: [facility] Invasive Surgery [facility] Endoscopy Anesthesia Start: 1113 Anesthesia Stop: 1221 Procedure: ENDOSCOPIC RETROGRADE CHOLANGIOPANCREATOGRAPHY Diagnosis: Biliary stricture (CMS/HCC) Liver lesion Scheduled Providers: Abdifatah Irwin MD; IVIS Gilmore; Bradley Díaz MD Responsible Provider: Abdifatah Irwin MD Anesthesia Type: general ASA Status: 2 Anesthesia Type: general Vitals Value Taken Time BP 130/58 08/13/24 1220 Temp 36 ???C (96.8 ???F) 08/13/24 1220 Pulse 68 08/13/24 1220 Resp 16 08/13/24 1220 SpO2 100 % 08/13/24 1220 Anesthesia Post Evaluation Patient location during evaluation: PACU Patient participation: complete - patient participated Level of consciousness: awake and alert Pain management: satisfactory to patient Airway patency: patent Cardiovascular status: acceptable and stable Respiratory status: acceptable, unassisted and spontaneous ventilation Hydration status: stable Patient is hemodynamically stable and is able to be discharged from PACU per anesthesia protocol. No notable events documented. HP Observed: 08/13/2024 12:00 PM Status: COMPLETED Source: [facility] H&P reviewed. The patient wa s examined and there are no changes to the H&P. The patient with history of [place] tumor, status post ERCP with biliary stent placement. The patient is presenting today for ERCP for stents replacement. [id number] Observed: 08/13/2024 12:00 PM Status: COMPLETED Source: [facility] Patient: Jenna Kumar Procedure Summary Date: 08/13/24 Room / Location: [facility] Endoscopy Anesthesia Start: 1113 Anesthesia Stop: Procedure: ENDOSCOPIC RETROGRADE CHOLANGIOPANCREATOGRAPHY Diagnosis: Biliary stricture (CMS/HCC) Liver lesion Scheduled Providers: Abdifatah Irwin MD; IVIS Gilmore; Bradley Díaz MD Responsible Provider: Abdifatah Irwin MD Anesthesia Type: general ASA Status: 2 Anesthesia Post Transport Note Transport to: [facility] O2 Route: room air Patient Monitor: direct observation Transport: uneventful Patient condition is: stable PROCEDURE Observed: 08/13/2024 11:29 AM Status: COMPLETED Source: [facility] Airway Date/Time: 08/13/2024 11:21 AM Urgency: elective Airway not difficult General Information and Staff Patient location during procedure: OR Anesthesiologist: Abdifatah Irwin MD Resident/JORI/IVIS: IVIS Gilmore Performed: resident/CLAIM AGENT/IVIS Indications and Patient Condition Indications for airway management: anesthesia Spontaneous Ventilation: absent Sedation level: deep Preoxygenated: yes Patient position: sniffing Mask difficulty assessment: 1 - vent by mask No planned trial extubation Final Airway Details Final airway type: endotracheal airway Successful airway: ETT Cuffed: yes Successful intubation technique: video laryngoscopy Facilitating devices/methods: intubating stylet Blade: Turner Blade size: #3 ETT size (mm): 7.0 Cormack-Lehane Classification: grade I - full view of glottis Placement verified by: chest auscultation and capnometry Measured from: lips ETT to lips (cm): 21 Number of attempts at approach: 1 ANES Observed: 08/13/2024 10:43 AM Status: COMPLETED Source: [facility] Patient: Jenna Kumar Procedure Information Date/Time: 08/13/24 1200 Scheduled providers: Abdifatah Irwin MD; IVIS Gilmore; Bradley Díaz MD Procedure: ENDOSCOPIC RETROGRADE CHOLANGIOPANCREATOGRAPHY Location: [facility] Relevant Problems Cardio (+) Primary hypertension Clinical information reviewed: Tobacco Allergies Meds Med Hx Surg Hx Fam Hx Soc Hx Pertinent history includes: METS > 4 not limited by anginal symptoms Past Medical History: Diagnosis Date Acute pancreatitis, unspecified complication status, unspecified pancreatitis type Anxiety Biliary stricture (CMS/HCC) Bundle branch block Duodenal ulcer E coli bacteremia Gastrointestinal hemorrhage GI bleed Heart disease Hyperbilirubinemia Hypertension Hypokalemia Liver lesion Obstructive jaundice (CMS/HCC) Posthemorrhagic anemia Rectal bleeding Rectal mass Urticaria Past Surgical History: Procedure Laterality Date BILE DUCT STENT PLACEMENT COLONOSCOPY ERCP FLEXIBLE SIGMOIDOSCOPY UPPER GASTROINTESTINAL ENDOSCOPY Social History Tobacco Use Smoking status: Never Smokeless tobacco: Never Vaping Use Vaping status: Never Used Substance Use Topics Alcohol use: Not Currently Comment: NOTHING IN LAST 2-3 MONTH Drug use: Never Medication Documentation Review Audit Reviewed by Clara Marks RN (Registered Nurse) on 08/13/24 at 1027 Medication Order Taking? Sig Documenting Provider Last Dose Status diazePAM (Valium) 2 mg tablet [id number] No Take 2 mg by mouth every 6 (six) hours if needed for anxiety. Historical Provider, Unknown Active hydrocortisone 1 % cream [id number] Apply topically if needed in the morning and at bedtime for rash for up to 7 days. Albert Collier MD 07/16/24 2359 losartan (Cozaar) 25 mg tablet [id number] Yes Take 25 mg by mouth in the morning. Los Li MD 08/12/2024 Active metoprolol tartrate (Lopressor) 25 mg tablet [id number] Yes Take 0.5 tablets (12.5 mg) by mouth two times daily for 196 doses. Ioana Cano MD 08/13/2024 Active pantoprazole (ProtoNix) 40 mg EC tablet [id number] No Take 1 tablet (40 mg) by mouth before breakfast and before evening meal for 194 doses. Do not crush, chew, or split. Patient not taking: Reported on 08/02/2024 Ioana Cano MD Not Taking Active Allergies Allergen Reactions Ceftriaxone Hives Merrem [Meropenem] Itching and Rash Penicillin Hives Sulfadiazine Hives Pertinent Diagnostic data has been reviewed, part of which includes: Hemoglobin (g/dL) Date Value 07/11/2024 9.4 (L) 07/10/2024 9.7 (L) 07/09/2024 8.1 (L) Auto WBC (10*3/uL) Date Value 07/11/2024 20.05 (H) 07/10/2024 19.79 (H) 07/09/2024 17.11 (H) Potassium (mmol/L) Date Value 07/11/2024 3.7 07/10/2024 3.5 07/09/2024 3.2 (L) Glucose (mg/dL) Date Value 07/11/2024 99 07/10/2024 101 (H) 07/09/2024 92 Creatinine (mg/dL) Date Value 07/11/2024 0.58 (L) 07/10/2024 0.67 07/09/2024 0.57 (L) eGFR (mL/min/1.73m*2) Date Value 07/11/2024 90.9 07/10/2024 87.8 07/09/2024 91.2 07/08/2024 90.1 07/07/2024 89.1 INR (no units) Date Value 07/07/2024 1.03 07/02/2024 1.28 (H) 07/01/2024 1.29 (H) No results found for: PTT Lab Results Component Value Date CALCIUM 8.0 (L) 07/11/2024 NA 135 (L) 07/11/2024 CO2 24 07/11/2024 CL 104 07/11/2024 BUN 8 07/11/2024 HCT 29.2 (L) 07/11/2024 PLT 460 (H) 07/11/2024 ALT 61 (H) 07/11/2024 AST 88 (H) 07/11/2024 ALKPHOS 753 (H) 07/11/2024 BILITOT 5.5 (H) 07/11/2024 ECG Encounter Date: 07/01/24 ECG 12 lead Result Value Ventricular Rate 78 Atrial Rate 78 RI Interval 198 QRS DURATION 130 QT Interval 378 QTC CALCULATION(BAZETT) 430 P New Point 50 R-New Point -23 T Wave New Point 80 Impression Normal sinus rhythm with sinus arrhythmia Non-specific intra-ventricular conduction block Anterolateral infarct , age undetermined Abnormal ECG When compared with ECG of 01-JUL-2024 22:03, Premature supraventricular complexes are no longer Present Non-specific intra-ventricular 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 Pt is not regularly taking therapeutically dosed systemic anticoagulant, Pt is regularly taking beta cornell, of which the last dose was T-0. Physical Exam Airway Mallampati: II TM distance: <3 FB Neck ROM: full Cardiovascular - normal exam Rhythm: regular Rate: normal Dental (+) lower dentures Pulmonary - normal exam Comments: Respirations are: Non-labored in effort, Regular in pattern, and Normal in rate. There is visible chest wall excursion that is: Bilateral & Symmetrical. Abdominal Anesthesia Plan ASA 2 general The patient is not a current smoker. intravenous induction Postoperative administration of opioids is intended. Anesthetic plan and risks discussed with patient. Use of blood products discussed with patient who consented to blood products. Plan discussed with attending and CAA. Additional Equipment Requests POCT GLUCOSE METER UNSOLICIT ED RESULTS Collected: 08/13/2024 10:34 AM Status: UNK Source: [facility] Order Comment: Waived Testin g in the ED is performed under the ED CLIA certificate #[id number]. TYPE CODE TESTS RESULT OUT OF RANGE REFERENCE UNITS LAB 885 POCT GLUCOSE 87 70-105 mg/dL Result Comment: ltolles Performed By: #### [id number] #### [facility] ([facility]ONATHAN) [address] [place] [address] PREP FOR PROCEDURE Observed: 08/13/2024 12:00 AM Status: COMPLETED Source: [facility] [id number] Jenna Kumar 0 1945 F Date Provider Department Center 08/13/2024 BRADLEY RIVERA [facility] SATISH No family history on file CNPN Observed: 08/05/2024 12:00 AM Status: COMPLETED Source: [facility] Telephone ([facility]) JENNA KUMAR ([id number]) 1945 F Date Time Provider Department 08/05/24 REUBEN ANGELA During your visit today, we recorded the following information about you: Oskar Nelson 08/05/2024 9:16 AM Signed Reuben Angela MD [facility] Clerical Pool 1. MRI Spine 2. MRI Liver 3. Referral to [facility] @ [facility] for rectal mass 4. Following MRI's will refer to [facility]BS (Mic or Darrell) 5. Virtual visit following MRI. 08/05/24 Spoke to patient, faxed MRI orders to [facility]. Referral to [facility] scheduled 08/08 at 2pm. Will scheduled Virtual Follow up will be scheduled after MRIS Oskar Nelson 08/06/2024 8:37 AM Signed Spoke to Mohsen at [facility], they are going to call patient today to scheduled MRI Oskar Nelson 08/08/2024 10:10 AM Signed Spoke to Jessica at scheduling, she is trying to get information about her clips in her liver before scheduling. Oskar Nelson 08/09/2024 2:01 PM Signed Jessica called back, MRI's are scheduled 08/12 at [facility]. Appt at [facility] for [facility] did not work, gave patient phone number to call and schedule. Provider phone follow up scheduled as patient does not have MyChart Oskar Nelson 08/09/2024 2:[address] Garcia, could you please do an order for Jenna to have her creatine lab done? [facility] needs it from her before her MRI's. [...] BLOOD COUNT AND DIFFERENTIAL [SQCBCDIF] Order #: [id number] FUTURE COMPREHENSIVE METABOLIC PANEL [SQCMP] Order #: [id number] FUTURE Prescriptions as of 08/09/2024 - diazePAM [...] Encounter Status:Closed by OSKAR NELSON on 08/05/24 PROGRESS Observed: 08/01/2024 4:40 PM Status: COMPLETED Source: [facility] ID: [id number] Author: REUBEN ANGELA MD Service: ? Author Type: Physician Type: Progress Notes Filed: 08/04/2024 17:40 Note Text: NAME: Jenna Kumar CLINIC NO.: [id number] DATE OF SERVICE: August 01, 2024 (Landon) Some elements in this clinic note that are critical to medical decision making have been carefully reviewed and included from a prior clinic note dated: July 19, 2024 ([email or web address]) Referring Provider: Mayito Costello, DO Additional Clinicians involved in Jenna Kumar's care: Bradley Díaz VIRTUAL VISIT PROGRESS NOTE This is a virtual visit using [employer] Video Call. It required patient-provider interaction for the medical decision making as documented below. I have communicated my name and active licensure. The patient's identity and physical location were verified at the time of this visit. Either the patient or their legal financial service representative has been informed of the [...] Spine MRI Liver Referral to [facility] @ [facility] for rectal mass Following MRI's will refer [...] significance. Trace LEFT pleural effusion. 07/23/2024 - NIMBOXX Liquid CDx drawn: Results in process 07/19/2024 [...] 4.6, Albumin: 1.7 07/01/2024-07/11/2024 - ER at [facility] after a fall due to lightheadedness, dizziness, and hypotension - transferred and admitted at [facility] for GI bleed 06/28/2024 - ERCP AND Sigmoidoscopy: Dr. Bradley Díaz at [facility] High grade intrahepatic duct mass/stricture, large left [...] in part B may not be entirely financial service representative of a larger mass. 06/21/2024 [...] also refer to [facility] and [facility] at [facility] for further diagnostics. Initial Visit, July 19, 2024: Jenna Kumar presents today for a Hematology and Oncology evaluation. She is joined by her sons, Kirill. Jenna is an 79 year old female who with newly diagnosed adenocarcinoma. She developed jaundice, dark urine, chang colored stool, narrowing of her stool caliber, and pruritus in late 05/2024. LFTs in 06/2024 were abnormal, subsequent imaging showed a region in segment 4A and B and 8 that was suspicious for neoplasm AND a suspicious appearing rectal mass. She underwent an outpatient ERCP and Sigmoidoscopy on 06/28/2024 at [facility]. 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 She had a fall due to lightheadedness, dizziness, and hypotension and presented to the ER at [facility] on 07/01/2024. She was found to have a GI bleed and was transferred to [facility] for management. Scopes were repeated while inpatient [...] life with treatment. 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 She does have exposure to secondhand smoke. Prior History form [facility] Discharge Summary on 07/11/2024: Hospital Course: Ms. Jenna Kumar is an 79 y.o. female transferred from [facility] ER to [facility] ER when she presented to [facility] ER for recurrent GI bleed increased fatigue weakness. She was found to have hemoglobin around 7 and blood pressure was low patient was admitted at [facility] on 06/28/2024 with diagnosis of jaundice pruritus [...] jaundice (HCC) PAST MEDICAL HISTORY Diagnosis Date OK (generalized anxiety disorder) High risk medication use [...] CPE Hematology and Oncology Services Provided at: [place], [place] CC: Maiyto Costello, DO [address] [facility] [id number] Bradley Díaz MD PROGRESS Observed: 08/01/2024 7:55 AM Status: COMPLETED Source: [facility] HNO ID: [id number] Author: REUBEN ANGELA MD Service: ? Author Type: Physician Type: Progress Notes Filed: 08/04/2024 17:44 Note Text: [facility] Multidisciplinary GI Tumor Board Primary Disease: Adenocarcinoma [...] 6.5, Albumin: 2.8 07/01/2024-07/11/2024 - ER at [facility] after a fall due to lightheadedness, dizziness, and hypotension - transferred and admitted at [facility] for GI bleed 07/01/2024 - Total Bilirubin: [...] mass Following MRI liver, will refer to [facility]. Await [facility] testing. Genetic counseling referral: [...] and alternatives to the various treatment options 36 Observed: 07/30/2024 11:00 AM Status: COMPLETED Source: [facility] Returned a phone call to alexus noguera who was calling to confirm her August 13 appointment. Time confirmed. TELEPHONE Observed: 07/30/2024 12:00 AM Status: COMPLETED Source: [facility] [id number] Jenna Kumar 0 1945 F Date Provider Department Center 07/30/2024 [id number] [facility] SATISH No family history on file NM PET/CT SKULL-THIGH INIT Observed: 03/2025 1:22 PM Status: F Source: [facility] * * *Final Report* * * DATE [...] * Uptake Time: 46 minutes * Radiopharmaceutical: A07-Giufacmxhvnuzmqask (FDG) COMPARISON: No previous FDG PET/CT available [...] any questions regarding this interpretation, please call [phone]. If you are unable to reach us at the number above, please feel free to contact [facility]Radiology at [phone]. [id number] PROGRESS Observed: 07/23/2024 11:15 AM Status: COMPLETED Source: [facility] HNO ID: [id number] Author: VICKIE TANG RN Service: ? Author [...] DATE: July 23, 2024 TIME: 11:29 AM PROGRESS Observed: 07/23/2024 11:15 AM Status: COMPLETED Source: [facility] HNO ID: [id number] Author: ASHLEY CLAYTON, RT(R) Service: ? Author Type: Technologist Type: Progress [...] 1135 PATIENT DISCHARGED TO: Ambulatory patient, left MO department area. Is this a therapy: No A Diagnostic radioactive procedure has taken place, with no further precautions necessary other than routine body substance precautions. More information regarding radiation safety can be found using this link: [email or web address] SIGNATURE: RT Dai(R) PATIENT NAME: Jenna Kumar DATE: July 23, 2024 TIME: 12:06 PM PAGER/CONTACT #: [id number] Observed: 07/22/2024 12:00 AM Status: COMPLETED Source: [facility] Telephone (HEMTSA) VLADJENNA ESPINO ([id number]) 1945 F Date Time Provider Department 07/22/24 CANDE ESPITIA HEMTSA During your visit today, we recorded the [...] by: Layne Lyman PA-C - Fully Assessed Reason for Visit: Orders [681] 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] Order(s):FOUNDATIONONELIQUIDCDX [[id number]] Order #: [id number] FUTURE Prescriptions as of 07/29/2024 - diazePAM [...] Encounter Status:Closed by CANDE ESPITIA on 07/29/24 CBC W AUTO DIFF BLD Collected: 07/19/2024 4:[address] atus: F Source: [facility] Order Comment: Specimen Type : BLOOD SPECIMEN Ordering Facility: [facility] Address: [address] [place] [address] TYPE CODE TESTS RESULT OUT OF RANGE REFERENCE UNITS LAB 6690-2(LOINC) WBC # Bld Auto 16.86 High 3.70-11.00 k/uL LAB 789-8(LOINC) RBC # Bld Auto 3.62 Low 3.90-5.20 m/ uL LAB 718-7(LOINC) Hgb Bld-mCnc 10.8 Low 11.5-15.5 g/dL LAB 4544-3(LOINC) Hct VFr Bld Auto 34.4 Low 36.0-46.0 % LAB 787-2(LOINC) MCV RBC Auto 95.0 80.0-100.0 fL LAB 785-6(LOINC) MCH RBC Qn Auto 29.8 26.0-34.0 p g LAB 786-4(LOINC) MCHC RBC Auto-mCnc 31.4 30.5-36.0 g/dL LAB 44022-0([facility]) RDW RBC-Rto 19.1 High 11.5-15.0 % LAB 777-3([facility]) Platelet # Bld Auto 368 150-400 k/uL LAB 30317-9([facility]) PMV Bld Auto 12.6 9.0-12.7 fL LAB 770-8([facility]) Neutrophils/leuk NFr Bld Auto 59.8 % LAB 751-8([facility]) Neutrophils # Bld Auto 10.08 High 1.45-7.50 k/uL LAB 736-9([facility]) Lymphocytes/leuk NFr Bld Auto 28.2 % LAB 731-0([facility]) Lymphocytes # Bld Auto 4.76 High 1.00-4.00 k/uL LAB 5905-5([facility]) Monocytes/leuk NFr Bld Auto 7.8 % LAB 742-7([facility]) Monocytes # Bld Auto 1.32 High <0.87 k/uL LAB 713-8([facility]) Eosinophil/leuk NFr Bld Auto 2.6 % LAB 711-2([facility]) Eosinophil # Bld Auto 0.44 <0.46 k/uL LAB 706-2([facility]) Basophils/leuk NFr Bld Auto 0.9 % LAB 704-7([facility]) Basophils # Bld Auto 0.15 High <0.11 k/uL LAB 16270-8([facility]) Imm Granulocytes/cyndi k NFr Bld Auto 0.7 % LAB 94013-1([facility]) Imm Granulocytes # Bld Auto 0.11 High <0.10 k/uL LAB 03060-0([facility]) nRBC/100 WBC Bld-Rto 0.0 /100 WBC LAB 771-6([facility]) nRBC # Bld Auto <0.01 <0.01 k/u L LAB 42936-2([facility]) Differential method Bld Auto Performed By: #### 63625-7 # ### [facility] CLIA [id number] [address] [place] [address] [place] COMP METAB 2000 PNL SERPL Collected: 4:03 PM Status: F Source: [facility] Order Comment: Specimen Type : BLOOD SPECIMEN Ordering Facility: [facility] Address: [address] [place] [address] TYPE CODE TESTS RESULT OUT OF RANGE REFERENCE UNITS LAB 2885-2(LOINC) Prot SerPl-mCnc 6.1 Low 6.3-8.0 g/dL LAB 1751-7(LOINC) Albumin SerPl-mCnc 3.1 Low 3.9-4.9 g/dL LAB 17036-5(LOINC) Calcium SerPl-mCnc 8.7 8.5-10.2 mg/dL LAB 1975-2(LOINC) Bilirub SerPl-mCnc 4.2 High 0.2-1.3 mg/dL LAB 6768-6(LOINC) ALP SerPl-cCnc 1130 High 34-123 U/L LAB 1920-8(LOINC) AST SerPl-cCnc 125 High 13-35 U/L LAB 1742-6(LOINC) ALT SerPl-cCnc 56 High 7-38 U/L LAB 2345-7(LOINC) Glucose SerPl-mCnc 109 High 74-99 mg/dL Result Comment: The [place] Diabetes Association (ADA) provides guidance for cutoff [...] Standards of Medical Care in Diabetes 2016, [place] [employer] Association. Diabetes Care. 2016.39(Suppl 1). LAB 3094-0(LOINC) BUN SerPl-mCnc 14 7-21 mg/ dL LAB 2160-0(LOINC) Creat SerPl-mCnc 0.73 0.58-0.96 mg/dL LAB 2951-2(LOINC) Sodium SerPl-sCnc 137 136-144 mmol/L LAB 2823-3(LOINC) Potassium SerPl-sCnc 3.6 Low 3.7-5.1 mmol/L LAB 5-0(LOINC) Chloride SerPl-sCnc 101 98-107 mmol/L LAB 2027-(LOINC) CO2 SerPl-sCnc 24 22-30 mmo l/L LAB 87187-5(LOINC) Anion Gap SerPl-sCnc 12 8-15 mmol/L LAB 63109-2(LOINC) Creatinine + eGFR Pnl SerPlBld 83 >=60 mL/min/1 .73m??? Result Comment: Estimated Gl omerular Filtration Rate (eGFR) is calculated using the 2020 CKD-EPI creatinine equation. This equation utilizes serum creatinine, sex, and age as parameters. The creatinine assay has traceable calibration to isotope dilution-mass spectrometry. Refer to KDIGO guidelines for clinical interpretation. In patients with unstable renal function, e.g. those with acute kidney injury, the eGFR may not accurately reflect actual GFR. Performed By: #### 79342-4 # ### [facility] CLIA [id number] [address] [place] [address] [place] CANCER AG19-9 SERPL-ACNC Collected: 11/2024 4:03 PM Status: F Source: [facility] Order Comment: Specimen Type : BLOOD SPECIMEN Ordering Facility: [facility] Address: [address] [place] [address] TYPE CODE TESTS RESULT OUT OF RANGE REFERENCE UNITS LAB 00031-6([facility]) Cancer Ag19-9 SerPl-aCnc <2.0 <36.0 U/mL Result Comment: Cancer antig en 19-9 test is used as an aid in monitoring response to treatment or recurrence in patients with established pancreatic, hepatobiliary, or gastrointestinal malignancies. Clinical correlation is required. The CA 19-9 Antigen test was performed using the [employer] DXI paramagnetic particle chemiluminescent immunoassay method. Results obtained with different assay methods or kits cannot be used interchangeably. Performed By: #### 43571-0, 2038-10 #### [facility] CLIA [id number] [address] [place] [address] [place] CEA SERPL-MCNC Collected: 4:03 PM Status: F Source: [facility] Order Comment: Specimen Type : BLOOD SPECIMEN Ordering Facility: [facility] Address: [address] [place] [address] TYPE CODE TESTS RESULT OUT OF RANGE REFERENCE UNITS LAB 2038-10(LOINC) CEA SerPl-mCnc 2.9 <=2.9 ng/mL Result Comment: Carcinoembry onic antigen test is used as an aid in monitoring response to treatment or recurrence in patients with established colorectal, breast, lung, prostatic, pancreatic, and ovarian carcinomas. Clinical correlation is required. The Carcinoembryonic antigen test was performed using the [employer] Unicel DXI paramagnetic particle chemiluminescent immunoassay method. Results obtained with different assay methods or kits cannot be used interchangeably. Performed By: #### 02749-1, 2038-10 #### [facility] CLIA [id number] [address] [place] [address] [place] [address] [place] PROGRESS Observed: 07/19/2024 4:00 PM Status: COMPLETED Source: [facility] HNO ID: [id number] Author: REUBEN ANGELA MD Service: ? Author Type: Physician Type: Progress Notes Filed: 07/21/2024 15:47 Note Text: NAME: Jenna Kumar NO.: [id number] DATE OF SERVICE: July 19, 2024 (Landon) [...] 4.6, Albumin: 1.7 07/01/2024-07/11/2024 - ER at [facility] after a fall due to lightheadedness, dizziness, and hypotension - transferred and admitted at [facility] for GI bleed 06/28/2024 - ERCP AND Sigmoidoscopy: Dr. Bradley Díza at [facility] High grade intrahepatic duct mass/stricture, large left [...] in part B may not be entirely financial service representative of a larger mass. 06/21/2024 [...] is joined by her sons, Jony and Kandis. Jenna is an 79 year old female who with newly diagnosed adenocarcinoma. She developed jaundice, dark urine, chang colored stool, narrowing of her stool caliber, and pruritus in late 05/2024. LFTs in 06/2024 were abnormal, subsequent imaging showed a region in segment 4A and B and 8 that was suspicious for neoplasm AND a suspicious appearing rectal mass. She underwent an outpatient ERCP and Sigmoidoscopy on 06/28/2024 at [facility]. 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 She had a fall due to lightheadedness, dizziness, and hypotension and presented to the ER at [facility] on 07/01/2024. She was found to have a GI bleed and was transferred to [facility] for management. Scopes were repeated while inpatient [...] life with treatment. 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 She does have exposure to secondhand smoke. Prior History form [facility] Discharge Summary on 07/11/2024: Hospital Course: Ms. Jenna Kumar is an 79 y.o. female transferred from [facility] ER to [facility] ER when she presented to [facility] ER for recurrent GI bleed increased fatigue weakness. She was found to have hemoglobin around 7 and blood pressure was low patient was admitted at [facility] on 06/28/2024 with diagnosis of jaundice pruritus [...] Nonfocal to gross visualization. Alert and oriented ?3. Psychiatric: No evidence of inappropriate anxiety or [...] CARCINOEMBRYONIC ANTIGEN PAST MEDICAL HISTORY Diagnosis Date OK (generalized anxiety disorder) High risk medication use [...] which included preparing to see the patient, tqon-ip-xegz patient care, completing clinical documentation, obtaining and/or reviewing separately obtained history, performing a medically appropriate examination, counseling and educating the patient/family/caregiver, ordering medications, tests, or procedures, independently interpreting results (not separately reported), communicating results to the patient/family/caregiver, and care coordination (not separately reported). Reuben Angela MD, CPE Hematology and Oncology Services Provided at: [place], [place] Scribe Attestation: This note was scribed by Shari Dumont on July 19, 2024 under the direction and supervision of Dr. Reuben Angela. I attest that all of the information documented is correct to the best of my knowledge. Provider Attestation: I, Reuben Angela MD, attest that all information documented by the above scribe is correct, and was supervised by me and under my direction. CC: Mayito Costello, DO [address] [facility] [address] Bradley Díaz MD CNOVSP Observed: 07/19/2024 4:00 PM Status: COMPLETED Source: [facility] Visit (SP) Office ([place]) JENNA KUMAR ([id number]) 1945 F Date Time Provider Department 07/19/24 4:00 PM REUBEN ANGELA During your visit today, we recorded the following information about you: Temperature Pulse Respiration Blood pressure 97.7 degrees 84/minute 18/minute 146/81 Weight 67.3 kg Reuben Angela MD 07/21/2024 3:47 PM Signed NAME: Jenna Kumar CLINIC NO.: [id number] DATE OF SERVICE: July 19, 2024 ([facility]) Referring Provider: Mayito Costello, Consultation requested by [...] 4.6, Albumin: 1.7 07/01/2024-07/11/2024 - ER at [facility] after a fall due to lightheadedness, dizziness, and hypotension - transferred and admitted at [facility] for GI bleed 06/28/2024 - ERCP AND Sigmoidoscopy: Dr. Bradley Díaz at [facility] High grade intrahepatic duct mass/stricture, large left [...] in part B may not be entirely financial service representative of a larger mass. 06/21/2024 [...] is joined by her sons, Jony and Kandis. Jenna is an 79 year old female who with newly diagnosed adenocarcinoma. She developed jaundice, dark urine, chang colored stool, narrowing of her stool caliber, and pruritus in late 05/2024. LFTs in 06/2024 were abnormal, subsequent imaging showed a region in segment 4A and B and 8 that was suspicious for neoplasm AND a suspicious appearing rectal mass. She underwent an outpatient ERCP and Sigmoidoscopy on 06/28/2024 at [facility]. 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 She had a fall due to lightheadedness, dizziness, and hypotension and presented to the ER at [facility] on 07/01/2024. She was found to have a GI bleed and was transferred to [facility] for management. Scopes were repeated while inpatient [...] life with treatment. 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 She does have exposure to secondhand smoke. Prior History form [facility] Discharge Summary on 07/11/2024: Hospital Course: Ms. Jenna Kumar is an 79 y.o. female transferred from [place] [facility] to [facility] ER when she presented to [place] [facility] for recurrent GI bleed increased fatigue weakness. She was found to have hemoglobin around 7 and blood pressure was low patient was admitted at [facility] on 06/28/2024 with diagnosis of jaundice pruritus [...] Díaz. Patient is discharged in stable condition. - REVIEW OF SYSTEMS Per HPI and otherwise negative by full review of organ systems. - ECOG PERFORMANCE STATUS: 1 PHYSICAL EXAMINATION: Vitals: [...] Nonfocal to gross visualization. Alert and oriented ?3. Psychiatric: No evidence of inappropriate anxiety or depression. Skin: Visible areas of skin without rash, lesions, wounds or petechiae. - ALLERGIES: ALLERGIES Allergen Reactions Penicillins Hives Sulfadiazine [...] mouth. 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) Plan: CARCINOEMBRYONIC ANTIGEN, COMPLETE BLOOD COUNT AND DIFFERENTIAL, COMPREHENSIVE METABOLIC PANEL, CA 19-9 (R79.89) Other specified abnormal findings of blood chemistry Plan: CARCINOEMBRYONIC ANTIGEN PAST MEDICAL HISTORY Diagnosis Date OK (generalized anxiety disorder) High risk medication use [...] which included preparing to see the patient, [id number] patient care, completing clinical documentation, obtaining and/or reviewing separately obtained history, performing a medically appropriate examination, counseling and educating the patient/family/caregiver, ordering medications, tests, or procedures, independently interpreting results (not separately reported), communicating results to the patient/family/caregiver, and care coordination (not separately reported). Reuben Angela MD, CPE Hematology and Oncology Services Provided at: [place], [place] Scribe Attestation: This note was scribed by Shari Dumont on July 19, 2024 under the direction and supervision of Dr. Reuben Angela. I attest that all of the information documented is correct to the best of my knowledge. Provider Attestation: I, Reuben Angela MD, attest that all information documented by the above scribe is correct, and was supervised by me and under my direction. 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 #:[id number] COMPLETE BLOOD COUNT AND DIFFERENTIAL [SQCBCDIF] Order #: [id number]. #:[id number] COMPREHENSIVE METABOLIC PANEL [SQCMP] Order #: [id number]. #:[id number] CA 19-9 [ARJA025] Order #: [id number]. #:[id number] NM PET/CT SKULL-THIGH INITIAL [[id number]] Order #: [id number] FUTURE GI TUMOR BOARD [facility] [APPT42] Order #: [id number]: 1 FUTURE Level of Service: OFFICE/OUTPATIENT [facility] 60 MINUTES [29050] Additional E/M codes: VISIT CPLX INHERENT EANDM ASSOC WITH MED * Disposition: Return in about 2 weeks (around 08/02/2024). LOS History for Encounter Follow-up and Disposition History for Encounter Date Provider Department Center 07/19/2024 [id number] ANGELA Prescriptions as of 07/21/2024 - diazePAM (VALIUM) 2 mg tablet Take [...] by mouth. Problem List As Of Date: 07/19/2024 (None) Other instructions from your clinician: Will present case at Tumor Board on 07/25/2024 PET/CT prior to Tumor Board Labs for [facility] same day Virtual visit in 2 weeks Encounter Status:Closed by REUBEN ANGELA on 07/21/24 ORDERS ONLY Observed: 07/19/2024 12:00 AM Status: COMPLETED Source: [facility] [id number] Alissa Kumarjustin Mick 0 1945 F Date Provider Department Center 07/19/2024 [id number], HISTORICAL DCC ONC DCC No family history on file ORDERS ONLY Observed: 07/19/2024 12:00 AM Status: COMPLETED Source: [facility] [id number] Alissa Kumarjustin Mick 0 1945 F Date Provider Department Center 07/19/2024 [id number] SATISH No family history on file HP Observed: 07/18/2024 1:55 PM Status: COMPLETED Source: [facility] Follow up call made. Patient reports that she is feeling improvement in symptoms, although she is having alternating stools, otherwise denies complaints. PROGRESS Observed: 07/18/2024 1:55 PM Status: COMPLETED Source: [facility] Follow up call made. Patient reports that she is feeling improvement in symptoms, although she is having alternating stools, otherwise denies complaints. DOCUMENTATION Observed: 07/18/2024 12:00 AM Status: COMPLETED Source: [facility] [id number] Jenna Kumar 0 1945 F Date Provider Department Center 07/18/2024 LUCY HAYDEN [facility] GI [facility] No family history on file 36 Observed: 07/16/2024 9:52 AM Status: COMPLETED Source: [facility] Patient calling because she was told would call her yesterday to go over questions she has regarding her treatment and she is concerned because she didn't get the call. She is requesting to speak with his agency sales management assistant Lucy ARTHUR to go over her questions. She can be reached at [phone] and has a 2pm PCP appt. Please advise. PROGRESS Observed: 07/15/2024 12:15 PM Status: COMPLETED Source: [facility] Tumor Board Documentation Jenna Kumar was presented by Dr. Espana at our Tumor Board on 07/15/2024, which included representatives from medical oncology, radiation oncology, surgery, radiology and pathology . Jenna currently presents as inpatient with history of the following treatments: ERCP . Additionally, we reviewed previous medical and familial history, history of present illness, and recent lab results along with all available histopathologic and imaging studies. The tumor board considered available treatment options and made the following recommendations: Pathology will check for adequacy to do additional stains to determine origin of liver metastasis. 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 Patient has plans to be seen in [place]. The following procedures/referrals were also placed: No orders of the defined types were placed in this encounter. Clinical Trial Status: National site-specific guidelines were discussed with respect to the case. Tumor board is a meeting of clinicians from various specialty areas who evaluate and discuss patients for whom a multidisciplinary approach is being considered. Final determinations in the plan of care are those of the provider(s). The responsibility for follow up of recommendations given during tumor board is that of the provider. Today???s extended care, comprehensive team conference exceed 30 minutes. Jenna was not present for the discussion and was not examined. PROGRESS Observed: 07/12/2024 2:29 PM Status: COMP LETED Source: [facility] XR T PROGRESS Observed: 07/11/2024 5:06 PM Status: COMPLETED Source: [facility] Attestation signed by Bradley Díaz MD at 07/11/2024 9:06 PM Came to see and assess the patient. The patient was already discharged by the hospitalist. The patient was called and I spoke to her while she was on her way back to home. I will call the patient again tomorrow to make sure that she is not spiking any fever. [facility] Teaching GI Service Consult Gastroenterology/Hepatology Progress Note IDENTIFYING DATA PATIENT: Jenna Kumar ADMIT DATE: 07/01/2024 TIME OF EVALUATION: 07/11/2024 5:06 PM HOSPITAL STAY: LOS: 10 days REASON FOR HOSPITALIZATION: Hematochezia SUBJECTIVE/INTERVAL HISTORY Jenna Kumar's overnight events were reviewed. The patient's white blood cell count has increased from 19.79 to 20.05. Hemoglobin levels have decreased from 9.7 to 9.4. Liver function tests indicate an elevation in AST from 86 to 88, while ALT has decreased from 67 to 61. Alkaline phosphatase levels have decreased from 791 to 753, and total bilirubin has decreased from 6.1 to 5.5. The patient reports experiencing daily loose brown bowel movements with scant blood upon wiping. She continues to have mild upper abdominal discomfort but otherwise has no further complaints. Histology results from the colonoscopy performed on 07/08/2024 reveal that the rectal mass biopsy shows a tubular adenoma with focal high-grade dysplasia, and a second rectal mass biopsy indicates a tubular adenoma. Patient developed a rash on her abdomen and back yesterday which is improving. The biopsy from the recent colonoscopy showing tubular adenoma Per the hematology oncology team notes plans to follow-up with Dr Herman next week Once pathology is available on rectal mass recs will be made for the two synchronous malignancies OBJECTIVE MEDICATIONS SCHEDULED: @MEDSCURRENTMD@ PRNs: acetaminophen, 650 mg, q8h PRN hydrocortisone, , BID PRN melatonin, 6 mg, Nightly PRN ondansetron, 4 mg, q6h PRN Physical VITALS: BP 116/52 Pulse 77 Temp 36.8 ???C (98.2 ???F) (Temporal) Resp 24 Ht 1.626 m (5' 4 ) Wt 71.1 kg (156 lb 12.8 oz) SpO2 93% BMI 26.91 kg/m??? GEN: Alert and oriented x3, NAD HEENT: Atraumatic, normocephalic, scleral icterus CV: No edema visualized PULM: Respirations even and unlabored ABD: Soft, non-distended, mild epigastric tenderness upon palpation without guarding or rigidity NEURO: Moves all visualized extremities spontaneously LABS AND IMAGING CBC: Lab Results Component Value Date WBC 20.05 (H) 07/11/2024 RBC 3.19 (L) 07/11/2024 HGB 9.4 (L) 07/11/2024 HCT 29.2 (L) 07/11/2024 MCV 91.5 07/11/2024 RDW 22.5 (H) 07/11/2024 PLT 460 (H) 07/11/2024 CMP: Lab Results Component Value Date NA 135 (L) 07/11/2024 K 3.7 07/11/2024 CL 104 07/11/2024 CO2 24 07/11/2024 BUN 8 07/11/2024 PROT 4.8 (L) 07/11/2024 IMAGING: Colonoscopy 07/08/2024: Impression: Normal colonic mucosa with no significant abnormalities identified in the cecum, ascending, transverse, and descending colon. Presence of a large laterally spreading polypoid rectal mass measuring 5 cm, involving the full circumference of the rectum and extending from the dentate line up to 5 cm from the anal verge. Multiple biopsies were obtained. Recommendations: Await pathology results of the biopsied rectal mass. Discuss findings and next steps with the patient once pathology results are available. Histology Final Diagnosis A. 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 Colon, rectal mass #2, biopsy: - Tubular adenoma EGD 07/03/2024: Impression: Small duodenal ulcer oozing blood caused by a direct pressure of the biliary stent on the opposite wall of the second part of the duodenum. The position of the stent was adjusted away from the duodenum wound and the site of the bleeding was clipped with. Hemoclips and injected with epinephrine. Complete hemostasis was achieved. The site of the sphincterotomy was unremarkable and bile was noted draining from the common bile duct as as well as from the biliary stents. Recommendations: Start clear liquid diet. Start IV PPI. Follow-up H&H Awaiting histopathology results from previous ERCP/EUS and flexible sigmoidoscopy with biopsies. Further plan depends upon the histopathology results. ASSESSMENT AND PLAN Jenna Kumar is a 79 y.o. female with a history of left bundle branch block, transferred for evaluation of new-onset gastrointestinal bleeding and progressive fatigue. She initially presented with jaundice, white stools, and dark urine in early June, prompting workup revealing cholestasis and hepatic dysfunction. 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 Endoscopic evaluation on 06/28/2024, including ERCP with balloon dilation and stent placement, revealed a high-grade hilar stricture, a large hepatic mass, and a common hepatic duct mass. Post-procedure, she developed worsening fatigue, anorexia, pruritus, dark yellow urine, and recurrent dark red rectal bleeding. 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 EGD with EUS/ERCP on 06/28/2024 revealed high-grade hilar stricture with diffusely dilated left intrahepatic biliary system. Right intrahepatic ducts could not be opacified. Biopsy results positive for adenocarcinoma. The biopsy from the recent colonoscopy showing tubular adenoma The hematology oncology team notes plans to follow-up with Dr Herman next week Once pathology is available on rectal mass recs will be made for the two synchronous malignancies Transaminitis Liver function tests indicate an elevation in AST from 86 to 88, while ALT has decreased from 67 to 61. Alkaline phosphatase levels have decreased from 791 to 753, and total bilirubin has decreased from 6.1 to 5.5. 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 Biopsies obtained and pending Acute blood loss anemia Patient experienced dark red rectal bleeding with worsening fatigue. Hemoglobin levels declined to 8.1 g/dL, requiring 2 units of PRBC transfusion. EGD on 07/02/2024 identified a small duodenal ulcer with active oozing, likely due to pressure from the biliary stent. Stent was repositioned to relieve pressure, and endoscopic hemostasis was achieved with hemoclips and epinephrine injection. The sphincterotomy site was unremarkable, and bile was draining appropriately from the common bile duct and biliary stents. Colonoscopy 07/08/2024 results as above E. Coli Bacteremia with Leukocytosis Plan Monitor LFT's Please consider stool workup to rule out C. difficile given that the patient was having softer stool recently as well as enteric pathogen panel. Please follow-up with the infectious disease team appreciated input regarding the leukocytosis Please follow-up with the oncology team recommendation appreciated. Okay to continue regular diet as tolerated from GI standpoint Continue Protonix 40 mg BID Trend H&H and monitor for overt GI bleeding, transfuse as needed Gastroenterology team will continue to follow-up on the patient. The case will be discussed with the attending physician For Questions please contact us at: [facility] 6 am to 4 pm weekdays in house Phone extension: [phone] 4 pm to 6 am or weekends please contact the paradi operator to page the fellow applications support lead PROGRESS Observed: 07/11/2024 3:03 PM Status: COMPLETED Source: [facility] Pt has DC orders. [facility] is unable to start services until Monday. Sent multiple new [facility] referrals, await accepting agency. Yumiko and Annabelle [facility] accepted pt. Met with pt for HHC choice. Pt refuses [facility] and stated she has her own personal nurses and help at home and overnight. Pt also stated she is set up to go to assisted living if she needs that. Pt is requesting to speak with Dr Loyd. Informed hopsitalist and Nevin KIDD. Son will transport when ready. DS Observed: 07/11/2024 2:42 PM Status: COMPLETED Source: [facility] Hospital Medicine Discharge Summary Final Discharge Diagnosis: Acute blood loss anemia Lower GI bleed Obstructive jaundice Status post ERCP and placement of biliary stent E coli bacteremia Adenocarcinoma of liver Adenocarcinoma of hepatic duct Transaminitis - stable Coagulopathy likely due to liver adenocarcinoma Rectal mass Urticaria - improved Leukocytosis - stable Essential hypertension Hypokalemia - resolved Hyponatremia - resolved Hypomagnesemia Admission Diagnosis: Hyperbilirubinemia [E80.6] Jaundice [R17] GI bleed [K92.2] Abnormal LFTs [R79.89] Fall, initial encounter [W19.XXXA] Gastrointestinal hemorrhage, unspecified gastrointestinal hemorrhage type [K92.2] Acute pancreatitis, unspecified complication status, unspecified pancreatitis type [K85.90] Overweight, BMI 26.91 Hospital course: Ms. Jenna Kumar is an 79 y.o. female transferred from [place] [facility] to [facility] ER when she presented to [place] [facility] for recurrent GI bleed increased fatigue weakness. She was found to have hemoglobin around 7 and blood pressure was low patient was admitted at [facility] on 06/28/2024 with diagnosis of jaundice pruritus [...] performed with evidence of small duodenal ulcer / biliary stent, stent was repositioned. Patient is [...] concerns of the patient going home. Addendum: patient requested to speak with Dr. Díaz prior [...] Díaz. Patient is discharged in stable condition. Surgical, Invasive or Diagnostic Procedures Done During Admission: EGD, ERCP, and Biopsy of liver, bile duct Consultations During Admission: Gastroenterology, Hematology/Oncology, and Infectious Disease Dear Dr. Yasmany DO, Ellinor is advised to follow up with you within 1-2 weeks. Items to follow up in ambulatory setting: Follow-up serial CBCs, Follow-up serial BMPs, and Follow-up serial LFTs Follow-up with: Gastroenterology, Hematology/Oncology, and Infectious Disease Scheduled appointments: Future Appointments Date Time Provider Department Center 07/16/2024 1:40 PM Kevin Guerra CNP [facility] INF [facility] 07/17/2024 2:30 PM Nathalia Herman MD [facility] ONC [facility] 08/02/2024 10:00 AM Zehra Reddy CNP [facility] Your medication list START taking these medications Instructions Last Dose Given Next Dose Due hydrocortisone 1 % cream Apply topically if needed in the morning and at bedtime for rash for up to 7 days. levoFLOXacin 750 mg tablet Commonly known as: Levaquin Start taking on: July 10, 2024 Take 1 tablet (750 mg) by mouth in the morning for 3 days. metroNIDAZOLE 500 mg tablet Commonly known as: Flagyl Take 1 tablet (500 mg) by mouth two times daily for 4 days. pantoprazole 40 mg EC tablet Commonly known as: ProtoNix Take 1 tablet (40 mg) by mouth before breakfast and before evening meal for 194 doses. Do not crush, chew, or split. CHANGE how you take these medications Instructions Last Dose Given Next Dose Due metoprolol tartrate 25 mg tablet Commonly known as: Lopressor What changed: when to take this Take 0.5 tablets (12.5 mg) by mouth two times daily for 196 doses. CONTINUE taking these medications Instructions Last Dose Given Next Dose Due diazePAM 2 mg tablet Commonly known as: Valium losartan 25 mg tablet Commonly known as: Cozaar Where to Get Your Medications These medications were sent to [facility] - [place], [place] - [facility] [address] [place] [address] [place] [address] [facility] [address] hydrocortisone 1 % cream levoFLOXacin 750 mg tablet metoprolol tartrate 25 mg tablet metroNIDAZOLE 500 mg tablet pantoprazole 40 mg EC tablet Jenna is allergic to ceftriaxone, merrem [meropenem], penicillin, and sulfadiazine. [place]position[place] [facility] [place] Discharge Condition: Stable Code Status: Full Code Diagnostic Results Hematology: Results from last 7 days Lab Units 07/11/24 0807/10/24 0823 07/08/24 0706 07/07/24 1126 07/07/24 0337 07/06/24 1255 CRP mg/L -- -- -- -- -- 121.9* WBC AUTO 10*3/uL 20.05* 19.79* < > -- < > -- HEMOGLOBIN g/dL 9.4* 9.7* < > -- < > -- HEMATOCRIT % 29.2* 30.7* < > -- < > -- MCV fL 91.5 91.4 < > -- < > -- PLATELETS AUTO 10*3/uL 460* 471* < > -- < > -- INR -- -- -- 1.03 -- -- < > = values in this interval not displayed. Chemistry: Results from last 7 days Lab Units 07/11/24 0819 07/10/24 0823 07/09/24 0504 SODIUM mmol/L 135* 133* 134* POTASSIUM mmol/L 3.7 3.5 3.2* CHLORIDE mmol/L 104 101 103 CO2 mmol/L BUN mg/dL 8 9 9 CREATININE mg/dL 0.58* 0.67 0.57* GLUCOSE mg/dL 99 101* 92 CALCIUM mg/dL 8.0* 8.0* 7.6* Results from last 7 days Lab Units 07/11/24 0819 07/10/24 0823 07/09/24 0504 07/08/24 0706 07/06/24 0421 07/05/24 0359 AST U/L 88* 86* 64* 56* < > 128* ALT U/L 61* 67* 60* 68* < > 130* ALK PHOS U/L 753* 791* 612* 517* < > 649* BILIRUBIN TOTAL mg/dL 5.5* 6.1* 6.0* 6.5* < > 8.7* BILIRUBIN DIRECT mg/dL -- -- 3.6* 3.9* -- 5.2* < > = values in this interval not displayed. Test Results Pending At Discharge: Diet at the time of discharge: regular diet Nutrition Screen Activity: Patient currently has no discharge activity orders Objective Blood pressure 116/52, pulse 77, temperature 36.8 ???C (98.2 ???F), temperature source Temporal, resp. rate 24, height 1.626 m (5' 4 ), weight 71.1 kg (156 lb 12.8 oz), SpO2 93%. Physical Exam Vitals reviewed. Constitutional: General: She is not in acute distress. Appearance: She is not ill-appearing or toxic-appearing. HENT: Head: Normocephalic and atraumatic. Mouth/Throat: Mouth: Mucous membranes are moist. Eyes: General: No scleral icterus. Extraocular Movements: Extraocular movements intact. Pupils: Pupils are equal, round, and reactive to light. Cardiovascular: Rate and Rhythm: Normal rate. Pulmonary: Effort: Pulmonary effort is normal. No respiratory distress. Breath sounds: No stridor. Abdominal: General: There is no distension. Palpations: Abdomen is soft. There is no mass. Tenderness: There is no abdominal tenderness. There is no guarding. Skin: Findings: Rash (lower abdomen, overall much improved) present. Neurological: Mental Status: She is alert. Mental status is at baseline. Cranial Nerves: No cranial nerve deficit. Psychiatric: Mood and Affect: Mood normal. Behavior: Behavior normal. Thought Content: Thought content normal. Judgment: Judgment normal. Total time for discharge - review of data, exam, discussion with providers and care-team, med-rec and orders, arranging follow up, counseling of patient and/or family and documentation was 32 minutes. Signed Albert Collier MD [facility] Medicine 07/11/2024 2:43 PM CC: DO Yasmany PROGRESS Observed: 07/11/2024 12:15 PM Status: COMPLETED Source: [facility] Physical Therapy Physical Therapy Treatment Patient Name: Jenna Kumar : 1945 Today's Date: 07/11/2024 Patient Active Problem List Diagnosis GI bleed Posthemorrhagic anemia Jaundice Primary hypertension Hypokalemia Liver mass Obstructive jaundice (CMS/HCC) Start Time: 1151 Stop Time: 1215 Time Calculation (min): 24 min Objective pt agreeable to participate with therapy @ this time. Upon arrival pt in supine with HOB elevated. General Visit Information: PT Last Visit PT Received On: 07/11/24 General Subjective: pt agreeable to participte with therapy. Session Comments: Upon arrival pt in bed Precautions Precautions Medical Precautions: fall risk, telemetry Pain Pain Assessment Pain Assessment: (pt reports 07/22 pain @ surgical areas) Cognition Cognition Overall Cognitive Status: Within Functional Limits Arousal/Alertness: Appropriate responses to stimuli Orientation Level: Oriented X4 Following Commands: Follows all commands and directions without difficulty General Assessment Static Standing Balance Static Standing Balance Static Standing-Balance Support: Right upper extremity supported, Left upper extremity supported, With device (RW) Static Standing-Level of Assistance: Distant supervision Static Standing-Comment/Number of Minutes: no LOB General Assessments: Activity Tolerance Activity Tolerance Comments: pt amb in room with RW Cognition Overall Cognitive Status: Within Functional Limits Arousal/Alertness: Appropriate responses to stimuli Orientation Level: Oriented X4 Following Commands: Follows all commands and directions without difficulty Treatment: Therapeutic Exercise Therapeutic Exercise Activity 1: HEP of gentle AROM to: neck, shoulders, hips, knees, ankles while in recliner with feet elevated/lowered Ambulation Ambulation: Yes Ambulation 1 Surface 1: Level tile Device 1: Platform walker right Assistance 1: Distant supervision Quality of Gait 1: slow paced gait, no LOB Comments/Distance (ft) 1: 65 ft in room Transfers Transfer: Yes Transfer 1 Transfer From 1: Chair with arms Transfer Type 1: To and from Transfer to 1: Chair with arms Technique 1: Sit to stand, Stand to sit Transfer Device 1: rolling walker Transfer Level of Assistance 1: Close supervision Trials/Comments 1: no struggle or LOB noted Outcome Assessments 6 Clicks (Mobility) Help from another person turning from your back to your side while in a flat bed without using bedrails: None Help from another person moving from lying on your back to sitting on the side of a flat bed without using bedrails: None Help from another person moving to and from a bed to a chair (including a wheelchair): None Help from another person standing up from a chair using your arms (e.g. wheelchair or bedside chair): None Help from another person to walk in hospital room: A little Help from another person climbing 3-5 steps with a railing: A little Mobility 6 Clicks T-Score: 22 Assessment/Plan PT Assessment PT Assessment/APPLIED BEHAVIOR SPECIALIST Summary: pt dann amb & received HEP with education on ther ex in packet. pt could benefit from cont therapy to improve her dynamic functional mobility. Evaluation/Treatment Tolerance: Patient tolerated treatment well PT Education/Comments: pt educated on HEP, received packet Plan Level of assist: 1 assist Treatment/Interventions: LE strengthening/ROM, Endurance training, Bed mobility, Gait training, Balance training PT Plan: Skilled PT PT Frequency: 5 times per week PT Discharge Recommendations: Home, With assist PT - Discharge Recommendations Placed: Yes Goals: Multi-Disciplinary Problems (from Physical Therapy) Active Problems Problem: PT Misc Start Date: 07/04/24 Goal Start Date Expected End Date End Date Patient will perform bed mobility from flat bed independently without use of bed rails. 07/04/24 07/18/24 -- Goal Start Date Expected End Date End Date Pt to progress seated and standing balance to allow return to prior level of functional activity, ADLs and tasks 07/04/24 07/18/24 -- Goal Start Date Expected End Date End Date Pt to ambulate 150' independently to improve ability to safely navigate home; demonstrating safe/proper use of RW 07/04/24 07/18/24 -- Goal Start Date Expected End Date End Date Stairs as needed to access home, CGA 07/04/24 07/18/24 -- Goal Start Date Expected End Date End Date Pt to perform 45 min session including gait and standing dynamic activities to facilitate return to independent ADLs and tasks; with minimal rest breaks and vitals remaining in normal limits to improve endurance. 07/04/24 07/18/24 -- PROGRESS Observed: 07/11/2024 11:25 AM Status: COMPLETED Source: [facility] Infectious Diseases - Inpatient daily Progress Note - Patient name: Jenna Kumar Patient Today's Date and Time: 07/11/2024, 11:25 AM Admission Date: 07/01/2024 Assessment/Plan # E Coli bacteremia 06/16 GI source s/p recent biliary stent placement # Biliary sepsis # Multiple masses concerning for malignancy including left hepatic mass, mass within the common bile duct, rectal mass # Leukocytosis - On 06/28 the patient underwent balloon dilatation of the CBD with biopsies followed by 2 biliary stents placement into the left intrahepatic ducts in addition to sphincterectomy -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 - 07/06: blood cultures negative so far - Today is day 8 of targeted therapy. - Cont. Levaquin and Flagyl. - WBC is elevated but stable. Alk phos is climbing. Fortunately she is stable and not expressing any worsening symptoms. The leukocytosis could non infectious and related to her new diagnosis of malignancy. Currently need rectal mass biopsy (Rectal vs cholangiocarcinoma) - Can discharge on 10 total days of coverage ending 07/13/2024 # Drug rash - Suspected 06/16 to Ceftriaxone. - Allergy added - elevated eosinophils on differential - resolving Subjective Interval history: Pt seen at bedside. She looks really good today and feels good today. Good appetite. Adenocarcinoma on biopsy. WBC is elevated but likely non infectious. Rash is nearly resolved. No diarrhea or night sweats. No feves or chills. Objective Physical Examination: BP 121/81 (BP Location: Right arm, Patient Position: Lying) Pulse 78 Temp 36.8 ???C (98.2 ???F) (Temporal) Resp 19 Ht 1.626 m (5' 4 ) Wt 71.1 kg (156 lb 12.8 oz) SpO2 95% BMI 26.91 kg/m??? Temperature Range: Temp: 36.8 ???C (98.2 ???F) Temp Av.6 ???C (97.9 ???F) Min: 36.5 ???C (97.7 ???F) Max: 36.8 ???C (98.2 ???F) General Appearance: Awake, alert, no distress. Pulmonary/Chest: clear to auscultation, no wheezes or rales, and unlabored breathing Cardiovascular: Regular rate and rhythm without murmurs Abdomen: soft, non-tender, nondistended, no palpable masses no organomegaly; normal bowel sounds Extremities: No cyanosis, edema, no joint effusions. Neurologic: Alert and oriented x 3, nonfocal. strength and sensation grossly normal Skin: diffuse maculopapular rash is nearly resolved. Laboratory data: I have independently reviewed the following labs: Results from last 7 days Lab Units 07/11/24 0819 07/10/24 0823 07/09/24 0504 WBC AUTO 10*3/uL 20.05* 19.79* 17.11* HEMOGLOBIN g/dL 9.4* 9.7* 8.1* HEMATOCRIT % 29.2* 30.7* 25.4* MCV fL 91.5 91.4 92.7 PLATELETS AUTO 10*3/uL 460* 471* 370 NEUTROS ABS 10*3/uL -- 13.5* 11.6* EOS ABS MAN 10*3/uL -- 1.19* 0.63* BASOS ABS MAN 10*3/uL -- 0.00 0.09 Results from last 7 days Lab Units 07/11/24 0819 07/10/24 0823 07/09/24 0504 POTASSIUM mmol/L 3.7 3.5 3.2* CHLORIDE mmol/L 104 101 103 CO2 mmol/L 24 26 25 BUN mg/dL 8 9 9 CREATININE mg/dL 0.58* 0.67 0.57* GLUCOSE mg/dL 99 101* 92 CALCIUM mg/dL 8.0* 8.0* 7.6* ALK PHOS U/L 753* 791* 612* ALT U/L 61* 67* 60* AST U/L 88* 86* 64* Results from last 7 days Lab Units 07/06/24 1255 CRP mg/L 121.9* No lab exists for component: TURBIDITY , SPECIFICGRA , PHURINE , LEUKOCYTE , PROTEIN , BLOODHGB , RBCELLS , RENALEPITH No lab exists for component: TOXIGENICC Imaging Studies: Cultures: Results for orders placed or performed during the hospital encounter of 07/01/24 Blood culture Specimen: Blood, Venous Result Value Ref Range Blood Culture No growth at 4 days Blood culture Specimen: Blood, Venous Result Value Ref Range Blood Culture No growth at 4 days Blood culture, peripheral #2 Specimen: Blood, Venous Result Value Ref Range Blood Culture No growth at 5 days Blood culture, peripheral #1 Specimen: Blood, Venous Result Value Ref Range Blood Culture Escherichia coli (A) Gram Stain Result Aerobic Bottle Yields Gram negative bacilli (A) Susceptibility Escherichia coli - STEPHANIE Amoxicillin + Clavulanate Susceptible ug/ml Ampicillin Susceptible ug/ml Ampicillin + Sulbactam Susceptible ug/ml Cefazolin (Non-Urine) Susceptible Ceftriaxone Susceptible ug/ml Ciprofloxacin Susceptible ug/ml ESBL Screen Negative ug/ml Gentamicin Susceptible ug/ml Tobramycin Susceptible ug/ml Trimethoprim + Sulfamethoxazole Susceptible ug/ml Medications: [Held by provider] diphenhydrAMINE, 25 mg, intravenous, Once levoFLOXacin, 750 mg, oral, Daily metoprolol tartrate, 12.5 mg, oral, BID metroNIDAZOLE, 500 mg, oral, BID pantoprazole, 40 mg, oral, BID AC polyethylene glycol, 238 g, oral, Once This progress note was completed using a voice plate developer system. Every effort was made to ensure accuracy; however, inadvertent computerized plate developer errors may be present. Thank you for allowing us to participate in the care of this patient. Our consultation addresses complex antimicrobial therapy counseling and treatment May Espinosa CNP [facility] Infectious Diseases Please contact us via [employer] during business hours. If no response in 15 min, call / page through the paradi operator PROGRESS Observed: 07/11/2024 8:34 AM Status: COMPLETED Source: [facility] Teaching GI Service Con beto Gastroenterology/Hepatology Progress Note IDENTIFYING DATA PATIENT: Jenna Kumar ADMIT DATE: 07/01/2024 TIME OF EVALUATION: 07/11/2024 8:35 AM HOSPITAL STAY: LOS: 10 days REASON FOR HOSPITALIZATION: Hematochezia SUBJECTIVE/INTERVAL HISTORY Jenna Kumar's overnight events were reviewed. The patient's white blood cell count has increased from 19.79 to 20.05. Hemoglobin levels have decreased from 9.7 to 9.4. Liver function tests indicate an elevation in AST from 86 to 88, while ALT has decreased from 67 to 61. Alkaline phosphatase levels have decreased from 791 to 753, and total bilirubin has decreased from 6.1 to 5.5. The patient reports experiencing daily loose brown bowel movements with scant blood upon wiping. She continues to have mild upper abdominal discomfort but otherwise has no further complaints. Histology results from the colonoscopy performed on 07/08/2024 reveal that the rectal mass biopsy shows a tubular adenoma with focal high-grade dysplasia, and a second rectal mass biopsy indicates a tubular adenoma. Patient developed a rash on her abdomen and back yesterday which is improving. OBJECTIVE MEDICATIONS SCHEDULED: @MEDSCURRENTMD@ PRNs: acetaminophen, 650 mg, q8h PRN hydrocortisone, , BID PRN melatonin, 6 mg, Nightly PRN ondansetron, 4 mg, q6h PRN Physical VITALS: BP 121/81 (BP Location: Right arm, Patient Position: Lying) Pulse 78 Temp 36.8 ???C (98.2 ???F) (Temporal) Resp 19 Ht 1.626 m (5' 4 ) Wt 71.1 kg (156 lb 12.8 oz) SpO2 95% BMI 26.91 kg/m??? GEN: Alert and oriented x3, NAD HEENT: Atraumatic, normocephalic, scleral icterus CV: No edema visualized PULM: Respirations even and unlabored ABD: Soft, non-distended, mild epigastric tenderness upon palpation without guarding or rigidity NEURO: Moves all visualized extremities spontaneously LABS AND IMAGING CBC: Lab Results Component Value Date WBC 19.79 (H) 07/10/2024 RBC 3.36 (L) 07/10/2024 HGB 9.7 (L) 07/10/2024 HCT 30.7 (L) 07/10/2024 MCV 91.4 07/10/2024 RDW 22.9 (H) 07/10/2024 PLT 471 (H) 07/10/2024 CMP: Lab Results Component Value Date NA 133 (L) 07/10/2024 K 3.5 07/10/2024 CL 101 07/10/2024 CO2 26 07/10/2024 BUN 9 07/10/2024 PROT 5.1 (L) 07/10/2024 IMAGING: Colonoscopy 07/08/2024: Impression: Normal colonic mucosa with no significant abnormalities identified in the cecum, ascending, transverse, and descending colon. Presence of a large laterally spreading polypoid rectal mass measuring 5 cm, involving the full circumference of the rectum and extending from the dentate line up to 5 cm from the anal verge. Multiple biopsies were obtained. Recommendations: Await pathology results of the biopsied rectal mass. Discuss findings and next steps with the patient once pathology results are available. Histology Final Diagnosis A. 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 Colon, rectal mass #2, biopsy: - Tubular adenoma EGD 07/03/2024: Impression: Small duodenal ulcer oozing blood caused by a direct pressure of the biliary stent on the opposite wall of the second part of the duodenum. The position of the stent was adjusted away from the duodenum wound and the site of the bleeding was clipped with. Hemoclips and injected with epinephrine. Complete hemostasis was achieved. The site of the sphincterotomy was unremarkable and bile was noted draining from the common bile duct as as well as from the biliary stents. Recommendations: Start clear liquid diet. Start IV PPI. Follow-up H&H Awaiting histopathology results from previous ERCP/EUS and flexible sigmoidoscopy with biopsies. Further plan depends upon the histopathology results. ASSESSMENT AND PLAN Jenna Kumar is a 79 y.o. female with a history of left bundle branch block, transferred for evaluation of new-onset gastrointestinal bleeding and progressive fatigue. She initially presented with jaundice, white stools, and dark urine in early June, prompting workup revealing cholestasis and hepatic dysfunction. 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 Endoscopic evaluation on 06/28/2024, including ERCP with balloon dilation and stent placement, revealed a high-grade hilar stricture, a large hepatic mass, and a common hepatic duct mass. Post-procedure, she developed worsening fatigue, anorexia, pruritus, dark yellow urine, and recurrent dark red rectal bleeding. 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 EGD with EUS/ERCP on 06/28/2024 revealed high-grade hilar stricture with diffusely dilated left intrahepatic biliary system. Right intrahepatic ducts could not be opacified. Biopsy results positive for adenocarcinoma. Transaminitis Liver function tests indicate an elevation in AST from 86 to 88, while ALT has decreased from 67 to 61. Alkaline phosphatase levels have decreased from 791 to 753, and total bilirubin has decreased from 6.1 to 5.5. 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 Biopsies obtained and pending Acute blood loss anemia Patient experienced dark red rectal bleeding with worsening fatigue. Hemoglobin levels declined to 8.1 g/dL, requiring 2 units of PRBC transfusion. EGD on 07/02/2024 identified a small duodenal ulcer with active oozing, likely due to pressure from the biliary stent. Stent was repositioned to relieve pressure, and endoscopic hemostasis was achieved with hemoclips and epinephrine injection. The sphincterotomy site was unremarkable, and bile was draining appropriately from the common bile duct and biliary stents. Colonoscopy 07/08/2024 results as above E. Coli Bacteremia with Leukocytosis Plan Monitor LFT's Okay to continue regular diet as tolerated from GI standpoint Continue Protonix 40 mg BID Trend H&H and monitor for overt GI bleeding, transfuse as needed Oncology, ID on board, appreciate input Remainder of care per primary The case will be discussed with the attending physician For Questions please contact us at: [facility] 6 am to 4 pm weekdays in house Phone extension: [phone] 4 pm to 6 am or weekends please contact the paradi operator to page the fellow applications support lead COMPREHENSIVE METABOLIC PANEL Collected: 07/11/2024 8 :19 AM Status: UNK Source: [facility] TYPE CODE TESTS RESULT OUT OF RANGE REFERENCE UNITS LAB [id number] SODIUM (MMOL/L) IN SER/PLAS 135 Low 136-145 mmol/L LAB [id number] POTASSIUM (MMOL/ L) IN SER/PLAS 3.7 3.5-5.1 mmol/L LAB [id number] CHLORIDE (MMOL/L ) IN SER/PLAS 104 98-107 mmol/L LAB [id number] CARBON DIOXIDE, TOTAL (MMOL/L) IN SER/PLAS 24 21-31 mmol/L LAB [id number] ANION GAP IN SER/PLAS 11 7-20 mmol/L LAB [id number] UREA NITROGEN (MG/DL) IN SER/PLAS 8 7-25 mg/dL LAB [id number] CREATININE (MG/D L) IN SER/PLAS 0.58 Low 0.60-1.20 mg/dL LAB [id number] UREA NITROGEN/CREATININ E (MASS RATIO) IN SER/PLAS 13.8 NA LAB [id number] GLUCOSE (MG/DL) IN SER/PLAS 99 70-100 mg/dL LAB [id number] CALCIUM (MG/DL) IN SER/PLAS 8.0 Low 8.6-10.3 mg/dL LAB [id number] ASPARTATE AMINOTRANSFERASE (SGOT) (U/L) IN SER/PLAS 88 High 13-39 U/L LAB [id number] ALANINE AMINOTRANSFERASE (SGPT) (U/L) IN SER/PLAS 61 High 7-52 U/L LAB [id number] ALKALINE PHOSPHATASE (U/L) IN SER/PLAS 753 High 34-104 U/L LAB [id number] PROTEIN (G/DL) I N SER/PLAS 4.8 Low 6.0-8.3 g/dL LAB [id number] ALBUMIN (G/DL) I N SER/PLAS 2.4 Low 3.5-5.7 g/dL LAB [id number] BILIRUBIN TOTAL (MG/DL) IN SER/PLAS 5.5 High 0.3-1.0 mg/dL LAB [id number] GLOMERULAR FILTRATION RATE ML/MIN/1.73 SQ M.PREDICTED 90.9 >60.0 mL/min /1.73m *2 Result Comment: [facility]???s estimated glomerular filtration rate (eGFR) will [...] one group of individuals. Performed By: #### [id number] ### # [facility] ([facility]) [address] [place] [address] CBC Collected: 07/11/2024 8:19 AM Status: UN K Source: [facility] TYPE CODE TESTS RESULT OUT OF RANGE REFERENCE UNITS LAB [id number] LEUKOCYTES(10*3/ U L) IN BLOOD BY AUTOMATED COUNT 20.05 High 4.00-10.60 10*3/uL LAB [id number] ERYTHROCYTES (10*6/UL) IN BLOOD BY AUTOMATED COUNT 3.19 Low 3.80-5.00 10*6/uL LAB [id number] HEMOGLOBIN (G/DL ) IN BLOOD 9.4 Low 12.0-15.0 g/dL LAB [id number] HEMATOCRIT (%) I N BLOOD BY AUTOMATED COUNT 29.2 Low 36.0-48.0 % LAB [id number] ERYTHROCYTE MEAN CORPUSCULAR VOLUME (FL) BY AUTOMATED COUNT 91.5 82.0-98.0 fL LAB [id number] ERYTHROCYTE MEAN CORPUSCULAR HEMOGLOBIN (PG) BY AUTOMATED COUNT 29.5 27.0-33.0 pg LAB [id number] ERYTHROCYTE MEAN CORPUSCULAR HEMOGLOBIN CONCENTRATION (G/DL) BY AUTOMATED 32.2 32.0-35.0 g/dL LAB [id number] ERYTHROCYTE DISTRIBUTION WIDTH (RATIO) BY AUTOMATED COUNT 22.5 High 11.5-15.0 % LAB [id number] PLATELETS (10*3/UL) IN BLOOD AUTOMATED COUNT 460 High 150-400 10*3/uL LAB 2878 IMMATURE PLATELE T FRACTION % 4.9 0.8-6.3 % Performed By: #### [id number] ## ## [facility] [address] [place] [address] ORDERS ONLY Observed: 07/11/2024 12:00 AM Status: COMPLETED Source: [facility] [id number] Jenna Kumar 0 1945 F Date Provider Department Center 07/11/2024 [id number] [id number] [facility] 4AB None No family history on file 30 Observed: 07/10/2024 8:04 PM Status: COMPLETED Source: [facility] Problem: Pain - Adult Goal: Verbalizes/displays adequate comfort level or baseline comfort level Outcome: Progressing Flowsheets (Taken 07/08/202441) Verbalizes/displays adequate comfort level or baseline comfort level: Encourage patient to monitor pain and request assistance Assess pain using appropriate pain scale Administer analgesics based on type and severity of pain and evaluate response Implement non-pharmacological measures as appropriate and evaluate response Problem: Safety - Adult Goal: Free from fall injury Outcome: Progressing Flowsheets (Taken 07/08/202441) Free from fall injury: Assess patient frequently for physical needs Identify cognitive and physical deficits and behaviors that affect risk of falls [place] fall precautions as indicated by assessment Educate patient/family on patient safety, including physical limitations Instruct patient to call for assistance with activity based on assessment Modify environment to reduce risk of injury Problem: Discharge Planning Goal: Discharge to home or other facility with appropriate resources Outcome: Progressing Flowsheets (Taken 07/08/202441) Discharge to home or other facility with appropriate resources: Identify barriers to discharge with patient and caregiver Arrange for needed discharge resources and transportation as appropriate Identify discharge learning needs (meds, wound care, etc) Problem: Chronic Conditions and Co-morbidities Goal: Patient's chronic conditions and co-morbidity symptoms are monitored and maintained or improved Outcome: Progressing Flowsheets (Taken 07/08/202441) Care Plan - Patient's Chronic Conditions and Co-Morbidity Symptoms are Monitored and Maintained or Improved: Monitor and assess patient's chronic conditions and comorbid symptoms for stability, deterioration, or improvement Collaborate with multidisciplinary team to address chronic and comorbid conditions and prevent exacerbation or deterioration Update acute care plan with appropriate goals if chronic or comorbid symptoms are exacerbated and prevent overall improvement and discharge Problem: Skin/Tissue Integrity - Adult Goal: Skin integrity remains intact Outcome: Progressing Flowsheets (Taken 07/10/2024851 by Janel Saldivar RN) Skin integrity remains intact: Monitor for areas of redness and/or skin breakdown Problem: Musculoskeletal - Adult Goal: Return mobility to safest level of function Outcome: Progressing Flowsheets (Taken 07/08/202441) Return mobility to safest level of function: Assess patient stability and activity tolerance for standing, transferring and ambulating with or without assistive devices Assist with transfers and ambulation using safe patient handling equipment as needed Obtain physical therapy/occupational therapy consults as needed Apply continuous passive motion per provider or physical therapy orders to increase flexion toward goal Problem: Metabolic/Fluid and Electrolytes - Adult Goal: Electrolytes maintained within normal limits Outcome: Progressing Flowsheets (Taken 07/08/202441) Electrolytes maintained within normal limits: Monitor labs and assess patient for signs and symptoms of electrolyte imbalances Administer electrolyte replacement as ordered Monitor response to electrolyte replacements, including repeat lab results as appropriate Problem: Hematologic - Adult Goal: Maintains hematologic stability Outcome: Progressing Flowsheets (Taken 07/08/202441) Maintains hematologic stability: Assess for signs and symptoms of bleeding or hemorrhage Monitor labs for bleeding or clotting disorders Administer blood products/factors as ordered Problem: Cardiovascular - Adult Goal: Maintains optimal cardiac output and hemodynamic stability Outcome: Progressing Flowsheets (Taken 07/08/202441) Maintains optimal cardiac output and hemodynamic stability: Monitor blood pressure and heart rate Assess for signs of decreased cardiac output Problem: Gastrointestinal - Adult Goal: Maintains or returns to baseline bowel function Outcome: Progressing Flowsheets (Taken 07/08/202441) Maintains or returns to baseline bowel function: Assess bowel function Goal: Maintains adequate nutritional intake Outcome: Progressing Flowsheets (Taken 07/08/202441) Maintains adequate nutritional intake: Monitor percentage of each meal consumed Identify factors contributing to decreased intake, treat as appropriate Problem: Genitourinary - Adult Goal: Absence of urinary retention Outcome: Progressing Flowsheets (Taken 07/08/202441) Absence of urinary retention: Assess patient???s ability to void and empty bladder Monitor intake/output and perform bladder scan as needed Problem: Infection - Adult Goal: Absence of infection at discharge Outcome: Progressing Flowsheets (Taken 07/08/202441) Absence of infection at discharge: Assess and monitor for signs and symptoms of infection Monitor lab/diagnostic results The patient is Moderately Stable - Low risk of patient condition declining or worsening The patient's goals for the shift include comfort/rest The clinical goals for the shift include optimize patient treatment goals PROGRESS Observed: 07/10/2024 2:07 PM Status: COMPLETED Source: [facility] Attestation signed by Manju Vinson MD at 07/10/2024 2:38 PM By using the attestations below, the signing clinician agrees that I have read and verify that the documentation has been personally reviewed by me and ensure that the documentation accurately reflects the encounter. As noted by Dr Aleman : I personally saw this patient on the day of the encounter, performed the gan portion(s) of the service and participated in the management and confirm the resident's documentation. Please note there may be an additional personal documentation from me. Additional Comments: Once pathology is available on rectal mass recs will be made for the two synchronous malignancies Questions answered and has follow up with Dr Herman next week Questions answered Manju Vinson MD Inpatient Hematology Oncology Fellow availability Monday - 830am-500pm, Monday 830am-430pm and Monday 830am-1200pm During these hours, Please contact Hematology Oncology Fellow through [employer] first For Hematology Oncology needs on weekends and after hours, please page the on-call fellow through the hospital paradi operator. NEW INPATIENT HEMATOLOGY / ONCOLOGY CONSULT NOTE Patient ID: Jenna Kumar, 79 y.o. female Requested by: Saad Devi DO PCP: Mayito Costello DO : 1945 REASON FOR CONSULTATION: Adenocarcinoma of biliary tract Rectal mass CHIEF COMPLAINT: Chief Complaint Patient presents with Black or Bloody Stool Weakness, Gen Fall HISTORY OF PRESENT ILLNESS: Jenna Kumar is a 79 y.o. female with history of anxiety, HTN, who presented to hospital on 06/28 after she was noted to have severe jaundice w bili ~ [address] scan of abd/pelvis at the time showed 4.6 x 3.4 cm ill-defined hypoattenuating region in segment 4A and B suspicious for primary hepatic neoplasm, i.e. cholangiocarcinoma versus metastatic disease. The CT scan was also suspicious for rectal adenocarcinoma. liver function test revealed total bilirubin of 12.9, alkaline phosphatase of 1074, ALT 499 and AST 273. Pt underwent ERCP that showed stricture at common hepatic duct w dilation of L intra-hepatic duct and hypoechoic paraduodenal node. On 06/28, 2 stents were placed in L intrahepatic duct and pancreatic duct. Hepatic duct brushing, L hepatic biopsy showed evidence of adenocarcinoma. 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 Pt was readmitted on 07/02 again after she presented w generalised weakness, fall and javier. Her Hgb was found to be 7.0 down from 14. She was started on protonix drip and upper Endoscopy showed biliary stent related traumatic duodenal ulcer w oozing of blood. Stent was re-aligned and bleeding was stopped w clips. She received 2 units of pRBC. Now she is spiking fever of 100.4. Her bili, LFTs are trending down. Bili 12.1---> 8.8 HgB 7.0---> 9.1 s/p 1 units of prbc last unit given on 07/02 INTERVAL HISTORY Pt is doing well. He is undergoing PT. No major concern. Underwent colonoscopy on 07/09/24. Biopsy pending. PAST HEMATOLOGY / ONCOLOGY HISTORY: Oncology History No history exists. REVIEW OF SYSTEMS: Complete 10-point ROS is negative except as mentioned in HPI. MEDICAL HISTORY: Past Medical History: Diagnosis Date Anxiety Bundle branch block Heart disease Hypertension SURGICAL HISTORY: History reviewed. No pertinent surgical history. FAMILY HISTORY: No family history on file. SOCIAL HISTORY: Social History Socioeconomic History Marital status: Spouse name: Not on file Number of children: Not on file Years of education: Not on file Highest education level: Not on file Occupational History Not on file Tobacco Use Smoking status: Never Smokeless tobacco: Never Substance and Sexual Activity Alcohol use: Yes Alcohol/week: 2.0 standard drinks of alcohol Types: 2 Glasses of wine per week Drug use: Not on file Sexual activity: Not on file Other Topics Concern Not on file Social History Narrative Not on file Social Determinants of Health Financial Resource Strain: Low Risk (07/02/2024) Overall Financial Resource Strain (CARDIA) Difficulty of Paying Living Expenses: Not hard at all Food Insecurity: No Food Insecurity (07/02/2024) Hunger Vital Sign Worried About Running Out of Food in the Last Year: Never true Ran Out of Food in the Last Year: Not on file Transportation Needs: No Transportation Needs (07/02/2024) Transportation Lack of Transportation (Medical): No Lack of Transportation (Non-Medical): Not on file Physical Activity: Not on file Stress: Not on file Social Connections: Not on file Intimate Partner Violence: Unknown (07/02/2024) Humiliation, Afraid, Rape, and Kick questionnaire Fear of Current or Ex-Partner: No Emotionally Abused: Not on file Physically Abused: Not on file Sexually Abused: Not on file Housing Stability: Low Risk (07/02/2024) Housing Stability Vital Sign Unable to Pay for Housing in the Last Year: No Number of Times Moved in the Last Year: Not on file Homeless in the Last Year: No MEDICATIONS: No current facility-administered medications on file prior to encounter. Current Outpatient Medications on File Prior to Encounter Medication Sig Dispense Refill diazePAM (Valium) 2 mg tablet Take 2 mg by mouth every 6 (six) hours if needed for anxiety. losartan (Cozaar) 25 mg tablet Take 25 mg by mouth in the morning. metoprolol tartrate (Lopressor) 25 mg tablet Take 12.5 mg by mouth in the morning. ALLERGIES: Allergies Allergen Reactions Ceftriaxone Hives Merrem [Meropenem] Itching and Rash Penicillin Hives Sulfadiazine Hives PHYSICAL EXAMINATION: Vital signs: BP 134/56 Pulse 87 Temp 36.4 ???C (97.6 ???F) Resp (!) 28 Ht 1.626 m (5' 4 ) Wt 70.7 kg (155 lb 13.8 oz) SpO2 99% BMI 26.75 kg/m??? General appearance: awake, alert, oriented, no acute distress HEENT: supple CV: RRR, no murmurs PULM: CTAB, no wheezing ABD: soft, NT/ND NEURO: Negative for focal deficit, weakness or loss of sensation. EXT: No deformities or skin discoloration. No clubbing, cyanosis, or edema. LABORATORY DATA: Lab Results Component Value Date WBC 19.79 (H) 07/10/2024 HGB 9.7 (L) 07/10/2024 HCT 30.7 (L) 07/10/2024 MCV 91.4 07/10/2024 PLT 471 (H) 07/10/2024 Lab Results Component Value Date CALCIUM 8.0 (L) 07/10/2024 K 3.5 07/10/2024 CO2 26 07/10/2024 BUN 9 07/10/2024 CREATININE 0.67 07/10/2024 Lab Results Component Value Date ALT 67 (H) 07/10/2024 AST 86 (H) 07/10/2024 ALKPHOS 791 (H) 07/10/2024 Lab Results Component Value Date INR 1.03 07/07/2024 INR 1.28 (H) 07/02/2024 INR 1.29 (H) 07/01/2024 IMAGING: No CT results found for the past 6 months ASSESSMENT AND PLAN: 79 y.o. female with history of anxiety, HTN, who presented to hospital on 06/28 after noting severe jaundice w bili ~ [address] scan of abd/pelvis at the time showed 4.6 x 3.4 cm ill-defined hypoattenuating region in liver suspicious for hepatic neoplasm, i.e. cholangiocarcinoma versus metastatic disease. The CT scan was also suspicious for rectal adenocarcinoma.ERCP showed hepatic artry stricture, hypoechoic node w brushing positive for adenocarcinoma, node positive for atypical cells, and liver mass positive for adenocarcinoma. However, rectal mass was tubulo-villous. # Adenocarcinoma of the Liver ( [place] tumor) # Adenocarcinoma of the strictured hepatic duct # Atypical cells of paraduodenal node # Rectal circumferential mass ( tubulovillous adenoma) So far, it is highly suspicious for cholangiocarcinoma of the biliary tract. However, there is also rectal mass ( 5 cm circumferential) which on biopsy shows tubulovillous but concern is if biopsy was from superficial component. At ths time it is difficult to state w confidence if hepatic mass if met from rectal cancer or cholangiocarcinoma. To help in differentiation, we will need rectal MRI to further elucidate the rectal mass and may be repeat biopsy later on. I reached out to the pathologist to see if they can use stains to help see if hepatic mass origin is from GI tract or bilary tract. ( Biliary tract is CK7 positive/CK 20 negative and GI tract is CK 20 positive/CK 7 negative) We will also need to do further staging w chest CT. CEA, CA-19-9 and AFP ~ WNL Plan To differentiate if hepatic mass orgins ( rectal v cholangioCA) reached out to Vijay Fitzpatrick. At this point, Dr. Díaz thinks likely 1. rectal cancer ( awaiting repeat biopsy) metastatic to liver. 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 No chemotherapy at this time, till origin and staging is clear. CT chest or PET outpt to stage. # Obstructive Jaundice w elevated LFT Trending down since placement of biliary and pancreatic stent Bili 12.1---> 8.2-->6.2 LFT also trending down # Cholangitis # E.coli and Enterococci bacteremia Complication of biliary obstruction and ERCP S/p antibiotic. Cleared blood cultures Now on levaquin. Afebrile. #Anemia S/p 2 units of prbc, last unit given on 07/02 Blood loss anemia Check anemia panel May need iron infusion based on labs Thank you for the consult and appreciate involving us in the care of the patient. At this time, we do not have any additional recommendation from hematological/oncological standpoint. If you need any further help, please feel free to contact us. We will respectfully sign off. We have made an appt for the w Dr. Herman next week. Please discharge him on antinausea medication, laxatives, antiviral prophylaxis Kay Espana MD, [facility] PGY-5- Hemonc Fellow PROGRESS Observed: 07/10/2024 2:02 PM Status: COMPLETED Source: [facility] Medicine Daily Progress Note - 07/10/2024 2:02 PM; Room: [address] [place] [address] Admission: 07/01/2024 9:06 PM; Length of stay: 9 days THE HOSPITALIST TEAM PREFERS TO USE Section 101 CHAT FOR NON-URGENT COMMUNICATION 7AM-7PM. IF I DO NOT RESPOND WITHIN 20 MINUTES OR URGENT MATTERS, PLEASE CALL THROUGH THE SCREEN STRETCHER. FROM 7PM-7AM, PLEASE PAGE [phone](COVR). Code Status: Full Code Barriers to Discharge: Monitoring liver function panel Expected Discharge Date: TBD Discharge Destination: [facility] Overview Patient is seen for evaluation and management of melena, weakness. Jenna Kumar is an 79 y.o. female transferred from [place] [facility] to [facility] ER when she presented to [facility] for recurrent GI bleed increased fatigue weakness and found to have hemoglobin around 7 and blood pressure was low patient was admitted at [facility] on 06/28/2024 with diagnosis of jaundice pruritus [...] symptoms pruritus feeling weak fatigue tired. EGD performed with evidence of small duodenal ulcer 06/16 biliary stent, stent was repositioned. Patient is [...] on 07/08 for biopsies of rectal mass. Subjective Patient seen and examined in the morning. GI had requested to keep the patient yesterday. I spoke with GI today. They are concerned about acute cholangitis and would like to continue to monitor LFTs. Worsening transaminitis. Physical Exam Visit Vitals BP 134/56 Pulse 87 Temp 36.4 ???C (97.6 ???F) Resp (!) 28 Intake/Output Summary (Last 24 hours) at 07/10/2024 1402 Last data filed at 07/09/2024 1646 Gross per 24 hour Intake 283.33 ml Output -- Net 283.33 ml Physical Exam Vitals reviewed. Constitutional: General: She is not in acute distress. Appearance: She is not ill-appearing or toxic-appearing. HENT: Head: Normocephalic and atraumatic. Mouth/Throat: Mouth: Mucous membranes are moist. Eyes: General: No scleral icterus. Extraocular Movements: Extraocular movements intact. Pupils: Pupils are equal, round, and reactive to light. Cardiovascular: Rate and Rhythm: Normal rate. Pulmonary: Effort: Pulmonary effort is normal. No respiratory distress. Breath sounds: No stridor. Abdominal: General: There is no distension. Palpations: Abdomen is soft. There is no mass. Tenderness: There is abdominal tenderness. There is no guarding. Skin: Findings: Rash (hives, lower extremities) present. Neurological: Mental Status: She is alert. Cranial Nerves: No cranial nerve deficit. Psychiatric: Mood and Affect: Mood normal. Behavior: Behavior normal. Thought Content: Thought content normal. Judgment: Judgment normal. Estimated body mass index is 26.75 kg/m??? as calculated from the following: Height as of this encounter: 1.626 m (5' 4 ). Weight as of this encounter: 70.7 kg (155 lb 13.8 oz). Active Inpatient Problems Principal Problem: GI bleed Active Problems: Posthemorrhagic anemia Primary hypertension Hypokalemia Liver mass Obstructive jaundice (CMS/HCC) Assessment and Plan E coli bacteremia with recent biliary stent placement - presently on Levaquin and Flagyl with plans to finish therapy on 07/13 Urticaria - Meropenem stopped by ID - Benedryl 25mg PO PRN did not help - Cortisone cream started Acute blood loss anemia secondary to duodenal ulcer, stable - Received 2 PRBC transfusions. - EGD performed on 07/02 showed a small duodenal ulcer with active oozing, likely caused by direct pressure from biliary stent on duodenal wall. The stent has been repositioned. Hemostasis achieved. Continue Protonix twice a day.Hemoglobin appears stable Obstructive jaundice with adenocarcinoma of hepatic duct Adenocarcinoma of liver Transaminitis - worsening Status post ERCP - EGD with EUS/ERCP on 06/28 revealed high-grade hilar stricture with diffusely dilated left intrahepatic biliary system. Balloon dilatation of CBD followed by brushing and biopsies were performed, 2 biliary stents placed into left intrahepatic ducts after sphincterotomy - Colonoscopy with biopsy completed - Pending biopsy results. Likely will need to be followed up outpatient Rectal mass concerning for adenocarcinoma - Flexible sigmoidoscopy on 06/28 showed 5 cm circumferential polypoid rectal mass extends from the dentate line, involving rectal folds, biopsies obtained - Plan for rectal MRI as outpatient Leukocytosis likely reactive in the setting of recent stenting and possible malignancy - improving - 19k on 07/10 - Repeat CBC upon discharge Primary hypertension - Blood pressure is at goal 07/10 AM - losartan is held as patient's blood pressure was borderline. - Continue Lopressor at a lower dose of 12.5 mg twice a day, hold for SBP <110 or HR <60 Hypokalemia, resolved - Supplementation ordered VTE Prophylaxis: epc Scheduled Meds [Held by provider] diphenhydrAMINE, 25 mg, intravenous, Once levoFLOXacin, 750 mg, oral, Daily metoprolol tartrate, 12.5 mg, oral, BID metroNIDAZOLE, 500 mg, oral, BID pantoprazole, 40 mg, oral, BID AC polyethylene glycol, 238 g, oral, Once Pertinent Investigations Hematology: Results from last 7 days Lab Units 07/10/24 0823 07/09/24 0504 07/08/24 0706 07/07/24 1126 07/07/24 0337 07/06/24 1255 CRP mg/L -- -- -- -- -- 121.9* WBC AUTO 10*3/uL 19.79* 17.11* < > -- < > -- HEMOGLOBIN g/dL 9.7* 8.1* < > -- < > -- HEMATOCRIT % 30.7* 25.4* < > -- < > -- MCV fL 91.4 92.7 < > -- < > -- PLATELETS AUTO 10*3/uL 471* 370 < > -- < > -- INR -- -- -- 1.03 -- -- < > = values in this interval not displayed. Chemistry: Results from last 7 days Lab Units 07/10/24 0823 07/09/24 0504 07/08/24 0706 07/05/24 0359 07/04/24 0635 SODIUM mmol/L 133* 134* 133* < > 132* POTASSIUM mmol/L 3.5 3.2* 3.5 < > 4.0 CHLORIDE mmol/L 101 103 102 < > 104 CO2 mmol/L 26 25 28 < > 24 BUN mg/dL 9 9 8 < > 16 CREATININE mg/dL 0.67 0.57* 0.60 < > 0.76 GLUCOSE mg/dL 101* 92 92 < > 106* MAGNESIUM mg/dL -- -- -- -- 1.7* CALCIUM mg/dL 8.0* 7.6* 7.7* < > 7.7* < > = values in this interval not displayed. Results from last 7 days Lab Units 07/10/24 0823 07/09/24 0504 07/08/24 0706 07/06/24 0421 07/05/24 0359 AST U/L 86* 64* 56* < > 128* ALT U/L 67* 60* 68* < > 130* ALK PHOS U/L 791* 612* 517* < > 649* BILIRUBIN TOTAL mg/dL 6.1* 6.0* 6.5* < > 8.7* BILIRUBIN DIRECT mg/dL -- 3.6* 3.9* -- 5.2* < > = values in this interval not displayed. Historical Values: (Includes values prior to this admission) No results found for: PREALBUMIN , TSH , T3FREE , FREET4 , CORTISOL , FEV1 , DZD1EYC , DLCO , RVSP , HDL , LDL Lab Results Component Value Date [id number] 1,533 (H) 07/04/2024 IRON 84 07/04/2024 TIBC 188 (L) 07/04/2024 CEA 2.2 07/04/2024 CA199 <2 07/04/2024 Imaging ECG 12 lead Normal sinus rhythm with sinus arrhythmia Non-specific intra-ventricular conduction block Anterolateral infarct , age undetermined Abnormal ECG When compared with ECG of 01-JUL-2024 22:03, Premature supraventricular complexes are no longer Present Non-specific intra-ventricular conduction block has replaced Left bundle branch block Anterior infarct is now Present Anterolateral infarct is now Present Confirmed by Daylin LOBO, HUGO Alexandra ([id number]) on 07/08/2024 9:42:00 PM Diagnostic Colonoscopy w Biopsy Table formatting from the original result was not included. Colonoscopy Procedure Note Procedure: Colonoscopy with biopsies. Indications: 79 y.o. female presenting with a complaint of jaundice and severe pruritus. The patient had CT scan of abdomen that revealed 4.6 x 3.4 cm ill-defined hypoattenuating region in segment 4A and B suspicious for primary hepatic neoplasm, i.e. cholangiocarcinoma versus metastatic disease. The CT scan was also suspicious for rectal adenocarcinoma. Her liver function test revealed total bilirubin of 12.9, alkaline phosphatase of 1074, ALT 499 and AST 273. The patient had a recent endoscopic ultrasound with ERCP and flexible sigmoidoscopy to assess the findings of the CT scan and for possible stent placement for the history of jaundice and pruritus. Sedation: MAC Medications: No administrations occurring from 1125 to 1210 on 07/08/24 Attending Physician: Bradley Díaz MD Nursing Student: Alfredo Puri MD Procedure Details: Informed consent was obtained for the procedure, including sedation. Risks of perforation, hemorrhage, adverse drug reaction and aspiration were discussed. The patient was placed in the left lateral decubitus position. The patient was monitored continuously with ECG tracing, pulse oximetry, blood pressure monitoring, and direct observations. A rectal examination was performed. The colonoscope was inserted into the rectum and advanced under direct vision to the cecum, which was identified by the ileocecal valve and appendiceal orifice. A careful inspection was made as the colonoscope was withdrawn, including a retroflexed view of the rectum; findings and interventions are described below. Appropriate photodocumentation was obtained. Events: Procedure Events Event Event Time CLN SCOPE IN 07/08/2024 11:40 AM CLN CECUM REACHED 07/08/2024 11:49 AM CLN SCOPE OUT 07/08/2024 12:09 PM Withdrawal time: 29 Quality of colonic prep: Poor Specimens: ID Type Source Tests Collected by Time A : RECTUM MASS RULE OUT MALIGNANCY Tissue Rectum HISTOLOGY - TISSUE EXAM Rowena Gonzalez RN 07/08/2024 1203 Complications: None Estimated blood loss: Minimal Disposition: Inpatient leung Condition: Stable Endoscopic findings: Circumferential rectal mass palpated during digital rectal examination. Normal colonic mucosa throughout the cecum, ascending colon, transverse colon, and descending colon. No large tumors, polyps, or other significant findings. Large laterally spreading polypoid rectal mass, measuring 5 cm, extending from the dentate line up to 5 cm involving the full circumference of the rectum. Multiple biopsies were obtained. Impression: Normal colonic mucosa with no significant abnormalities identified in the cecum, ascending, transverse, and descending colon. Presence of a large laterally spreading polypoid rectal mass measuring 5 cm, involving the full circumference of the rectum and extending from the dentate line up to 5 cm from the anal verge. Multiple biopsies were obtained. Recommendations: Resume regular diet Await pathology results of the biopsied rectal mass. Discuss findings and next steps with the patient once pathology results are available. Attending Attestation: I was present and scrubbed for the entire procedure. Discharge Planning Expected Discharge Disposition[place] [facility] [place] Discharge Recommendations: Home, With assist OT Discharge Recommendations: alf facility placement Signed Albert Collier MD [facility] Medicine 07/10/2024 2:02 PM PROGRESS Observed: 07/10/2024 1:32 PM Status: COMPLETED Source: [facility] Occupational Therapy Occupational Therapy Treatment Patient Name: Jenna Kumar : 1945 Today's Date: 07/10/2024 07/10/24 1313 Time Calculation Start Time 1143 Stop Time 1210 Time Calculation (min) 27 min OT Therapeutic Procedures Time Entry Self Care/Home Management (ADLs) Time Entry 27 Problem List Patient Active Problem List Diagnosis GI bleed Posthemorrhagic anemia Jaundice Primary hypertension Hypokalemia Liver mass Obstructive jaundice (CMS/HCC) Pain: Pain Assessment Pain Assessment: No/denies pain Objective General Visit Information: OT Last Visit OT Received On: 07/10/24 General Subjective: Pt requries encouragement for OOBA this date. Precautions Precautions Medical Precautions: fall risk, telemetry Cognition Cognition Overall Cognitive Status: Within Functional Limits Arousal/Alertness: Appropriate responses to stimuli Orientation Level: Oriented X4 Following Commands: Follows one step commands with increased time Safety Judgment: Good awareness of safety precautions Awareness of Errors: Assistance required to correct errors made Deficits: Fully aware of deficits Attention Span: Attends with cues to redirect General Assessment General Assessment Skin Integrity: Rash noted to back, improved from previous session w/ this NICHOLAS/L, donned benadryl cream post bathing task. Edema: Edema noted throughout ADL Assessment: UE Bathing UE Bathing Level of Assistance: Moderate assistance UE Bathing Where Assessed: Edge of bed UE Bathing Comments: Mod A for UBB, pt demos decreased motivation UE Dressing UE Dressing Level of Assistance: Setup UE Dressing Where Assessed: Edge of bed UE Dressing Comments: to doff/don gown, complete snaps and ties LE Dressing LE Dressing: Yes Adult Briefs Level of Assistance: Maximum assistance LE Dressing Where Assessed: Other (Comment) LE Dressing Comments: Max A for LB dressing Toileting Toileting Level of Assistance: Moderate assistance Where Assessed: Toilet Toileting Comments: Mod A for clothing managment Static Sitting Balance Static Sitting Balance Static Sitting-Balance Support: Right upper extremity supported, Left upper extremity supported, Feet supported Static Sitting-Level of Assistance: Distant supervision Dynamic Sitting Balance Dynamic Sitting Balance Dynamic Sitting-Balance Support: No upper extremity supported, Feet supported Dynamic Sitting-Balance: Forward lean, Reaching for objects, Reaching across midline, Head control activities (Comment) Dynamic Sitting Balance-Level of Assistance: Close supervision Dynamic Sitting-Comments: on toilet, EOB, bedside chair Static Standing Balance Static Standing Balance Static Standing-Balance Support: Right upper extremity supported, Left upper extremity supported, With device Static Standing-Level of Assistance: Close supervision Static Standing-Comment/Number of Minutes: w/ RW Dynamic Standing Balance Dynamic Standing Balance Dynamic Standing-Balance Support: Unilateral upper extremity supported, With device Dynamic Standing-Balance: Forward lean, Reaching for objects, Reaching across midline Dynamic Standing Balance-Level of Assistance: Contact guard Dynamic Standing-Comments: w/ RW Bed Mobility Bed Mobility Bed Mobility: Yes Bed Mobility 1 Bed Mobility From 1: Supine Bed Mobility Type 1: To Bed Mobility to 1: Short sit Level of Assistance 1: Close supervision Bed Mobility Comments 1: use of L bed rail, increased time Transfers Transfers Ambulation comments: 18 feet x2 Transfer: Yes Transfer 1 Transfer From 1: Sit, Bed Transfer Type 1: To and from Transfer to 1: Stand, Toilet, Chair with arms Technique 1: Sit to stand, Stand to sit Transfer Device 1: rolling walker Transfer Level of Assistance 1: Contact guard Trials/Comments 1: CGA for controlled descent, verbal cues for controlled descent Activity Tolerance Activity Tolerance Endurance: Stage III Stage II (METs 1.4-2.0) - Sittin-20 mins Activity Tolerance Comments: Pt tolerates short dynamic session Outcome Assessments AM-PAC 6 Clicks Putting on and taking off regular lower body clothing?: A Lot (Mod/Max Assist) Bathing(Including washing,rinsing,drying)?: A Lot (Mod/Max Assist) Toileting, which includes using the toilet,bedpan,or urinal?: A Lot (Mod/Max Assist) Putting on and taking off regular upper body clothing?: A Little (Min Assist/Contact Guard/Supervision) Taking care of personal grooming such as brushing teeth?: A Little (Min Assist/Contact Guard/Supervision) Eating meals?: None (Independent) Total Score OT [facility]: 16 Assessment/Plan OT Assessment OT Impairments: Decreased ADL status, Decreased cognition, Decreased endurance, Decreased functional mobility OT Assessment/FISHERIES DIRECTOR Summary: Pt would benefit from continued skilled therapy to promote increased activity tolerance, safety awareness and participation and ease with self care. OT Education/Comments: Activity promotion, bed mob, transfer techniques, safety awareness Plan Level of assist: 1 assist OT Plan: Skilled OT OT Frequency: 5 times per week OT Discharge Recommendations: alf facility placement OT - Discharge Recommendations Placed: Yes OT Goals: Multi-Disciplinary Problems (from Occupational Therapy) Active Problems Problem: Balance Start Date: 07/05/24 Goal Start Date Expected End Date End Date LTG - Patient will demo Mod I standing and sitting balance to allow for completion of daily activities 07/05/24 07/18/24 -- Problem: Bathing Start Date: 07/05/24 Goal Start Date Expected End Date End Date LTG - Patient will utilize adaptive techniques to bathe body with modified independent 07/05/24 07/18/24 -- Problem: Dressings Lower Extremities Start Date: 07/05/24 Goal Start Date Expected End Date End Date LTG - Patient will utilize adaptive techniques/equipment to dress lower body with modified independent 07/05/24 07/18/24 -- Problem: Dressing Upper Extremities Start Date: 07/05/24 Goal Start Date Expected End Date End Date STG - Patient will ambulate to closet to retrieve clothing with modified independent 07/05/24 07/18/24 -- Problem: Grooming Start Date: 07/05/24 Goal Start Date Expected End Date End Date LTG - Patient will utilize adaptive techniques/equipment to complete daily grooming activities with modified independent 07/05/24 07/18/24 -- Problem: Toileting Start Date: 07/05/24 Goal Start Date Expected End Date End Date LTG - Patient will utilize adaptive techniques/equipment to complete daily toileting tasks with modified independent 07/05/24 07/18/24 -- Problem: Transfers Start Date: 07/05/24 Goal Start Date Expected End Date End Date LTG - Patient will transfer from bed<>chair/toilet with modified independent using LRAD 07/05/24 07/18/24 -- Problem: OT Misc Start Date: 07/05/24 Goal Start Date Expected End Date End Date Pt will increase activity tolerance to engage in at least 20-30 minutes of dynamic seated/standing activity with no more than min rest breaks PRN. 07/05/24 07/18/24 -- Goal Start Date Expected End Date End Date Pt will increase BUE strength at least 1/2 grade for increased I in transfers, mobility, and ADLs. 07/05/24 07/18/24 -- PROGRESS Observed: 07/10/2024 12:41 PM Status: COMPLETED Source: [facility] Infectious Diseases - Inpatient daily Progress Note - Patient name: Jenna Kumar Patient Today's Date and Time: 07/10/2024, 12:42 PM Admission Date: 07/01/2024 Assessment/Plan # E Coli bacteremia / GI source s/p recent biliary stent placement # Biliary sepsis # Multiple masses concerning for malignancy including left hepatic mass, mass within the common bile duct, rectal mass # Leukocytosis - On 06/28 the patient underwent balloon dilatation of the CBD with biopsies followed by 2 biliary stents placement into the left intrahepatic ducts in addition to sphincterectomy - 07/04: Blood cultures with E coli. - 07/06: blood cultures negative so far - Today is day 7 of targeted therapy. - Cont. Levaquin and Flagyl. - WBC is elevated but stable. Alk phos is climbing. If there is concern for intra abdominal infection we would need to add vancomycin . Unfortunately limited options otherwise given allergies. Fortunately she is stable and not expressing any worsening symptoms. - Can discharge on 10 total days of coverage ending 07/13/2024 # Drug rash - Suspected 06/16 to Ceftriaxone. - Allergy added - elevated eosinophils on differential - Supportive care with antihistamines +/- steroids. - Drug rashes can take some time to resolve Subjective Interval history: Pt seen at bedside. She still has a significant rash. Eosinophils are elevated on differential. No abdominal pain. No urinary symptoms. NO fevers. WBC is elevated and has not received any steroids. GI note reviewed. Objective Physical Examination: BP 134/56 Pulse 87 Temp 36.4 ???C (97.6 ???F) Resp (!) 28 Ht 1.626 m (5' 4 ) Wt 70.7 kg (155 lb 13.8 oz) SpO2 99% BMI 26.75 kg/m??? Temperature Range: Temp: 36.4 ???C (97.6 ???F) Temp Av.6 ???C (97.9 ???F) Min: 36.4 ???C (97.6 ???F) Max: 36.8 ???C (98.2 ???F) General Appearance: Awake, alert, no distress. Pulmonary/Chest: clear to auscultation, no wheezes or rales, and unlabored breathing Cardiovascular: Regular rate and rhythm without murmurs Abdomen: soft, non-tender, nondistended, no palpable masses no organomegaly; normal bowel sounds Extremities: No cyanosis, edema, no joint effusions. Neurologic: Alert and oriented x 3, nonfocal. strength and sensation grossly normal Skin: diffuse maculopapular rash unchanged. Laboratory data: I have independently reviewed the following labs: Results from last 7 days Lab Units 07/10/24 0823 07/09/24 0504 07/08/24 0706 07/05/24 0359 07/04/24 0635 WBC AUTO 10*3/uL 19.79* 17.11* 17.81* < > 20.22* HEMOGLOBIN g/dL 9.7* 8.1* 8.4* < > 8.9* HEMATOCRIT % 30.7* 25.4* 26.5* < > 27.7* MCV fL 91.4 92.7 92.3 < > 87.9 PLATELETS AUTO 10*3/uL 471* 370 342 < > 281 NEUTROS ABS 10*3/uL 13.5* 11.6* -- -- 16.8* EOS ABS MAN 10*3/uL 1.19* 0.63* -- -- 0.95* BASOS ABS MAN 10*3/uL 0.00 0.09 -- -- 0.14 < > = values in this interval not displayed. Results from last 7 days Lab Units 07/10/24 0823 07/09/24 0504 07/08/24 0706 POTASSIUM mmol/L 3.5 3.2* 3.5 CHLORIDE mmol/L 101 103 102 CO2 mmol/L 26 25 28 BUN mg/dL 9 9 8 CREATININE mg/dL 0.67 0.57* 0.60 GLUCOSE mg/dL 101* 92 92 CALCIUM mg/dL 8.0* 7.6* 7.7* ALK PHOS U/L 791* 612* 517* ALT U/L 67* 60* 68* AST U/L 86* 64* 56* Results from last 7 days Lab Units 07/06/24 1255 CRP mg/L 121.9* No lab exists for component: TURBIDITY , SPECIFICGRA , PHURINE , LEUKOCYTE , PROTEIN , BLOODHGB , RBCELLS , RENALEPITH No lab exists for component: TOXIGENICC Imaging Studies: Cultures: Results for orders placed or performed during the hospital encounter of 07/01/24 Blood culture Specimen: Blood, Venous Result Value Ref Range Blood Culture No growth at 3 days Blood culture Specimen: Blood, Venous Result Value Ref Range Blood Culture No growth at 3 days Blood culture, peripheral #2 Specimen: Blood, Venous Result Value Ref Range Blood Culture No growth at 5 days Blood culture, peripheral #1 Specimen: Blood, Venous Result Value Ref Range Blood Culture Escherichia coli (A) Gram Stain Result Aerobic Bottle Yields Gram negative bacilli (A) Susceptibility Escherichia coli - STEPHANIE Amoxicillin + Clavulanate Susceptible ug/ml Ampicillin Susceptible ug/ml Ampicillin + Sulbactam Susceptible ug/ml Cefazolin (Non-Urine) Susceptible Ceftriaxone Susceptible ug/ml Ciprofloxacin Susceptible ug/ml ESBL Screen Negative ug/ml Gentamicin Susceptible ug/ml Tobramycin Susceptible ug/ml Trimethoprim + Sulfamethoxazole Susceptible ug/ml Medications: [Held by provider] diphenhydrAMINE, 25 mg, intravenous, Once levoFLOXacin, 750 mg, oral, Daily metoprolol tartrate, 12.5 mg, oral, BID metroNIDAZOLE, 500 mg, oral, BID pantoprazole, 40 mg, oral, BID AC polyethylene glycol, 238 g, oral, Once This progress note was completed using a voice plate developer system. Every effort was made to ensure accuracy; however, inadvertent computerized plate developer errors may be present. Thank you for allowing us to participate in the care of this patient. Our consultation addresses complex antimicrobial therapy counseling and treatment May Espinosa CNP [facility] Infectious Diseases Please contact us via [employer] chat during business hours. If no response in 15 min, call / page through the paradi operator PROGRESS Observed: 07/10/2024 12:05 PM Status: COMPLETED Source: [facility] Attestation signed by Silvia Lacy RD at 07/10/2024 1:[address] reviewed and agrees with sports team marketing intern's nutrition assessment. Adult Nutrition Assessment: Name: Jenna Kumar Date: 1945 Date of Visit: 07/10/24 Admission Dx: Hyperbilirubinemia [E80.6] Jaundice [R17] GI bleed [K92.2] Abnormal LFTs [R79.89] Fall, initial encounter [W19.XXXA] Gastrointestinal hemorrhage, unspecified gastrointestinal hemorrhage type [K92.2] Acute pancreatitis, unspecified complication status, unspecified pancreatitis type [K85.90] Reason for assessment: follow-up Information obtained from: patient, medical record, and RD record Past Medical History: Diagnosis Date Anxiety Bundle branch block Heart disease Hypertension Current Medications: [Held by provider] diphenhydrAMINE, 25 mg, intravenous, Once levoFLOXacin, 750 mg, oral, Daily metoprolol tartrate, 12.5 mg, oral, BID metroNIDAZOLE, 500 mg, oral, BID pantoprazole, 40 mg, oral, BID AC polyethylene glycol, 238 g, oral, Once Labs: 0 Lab Value Date/Time POCGLU 96 06/28/2024 1254 BUN 9 07/10/2024 0823 CREATININE 0.67 07/10/2024 0823 NA 133 (L) 07/10/2024 0823 K 3.5 07/10/2024 0823 MG 1.7 (L) 07/04/2024 0635 HGB 9.7 (L) 07/10/2024 0823 WBC 19.79 (H) 07/10/2024 0823 Allergies: Allergies Allergen Reactions Ceftriaxone Hives Merrem [Meropenem] Itching and Rash Penicillin Hives Sulfadiazine Hives Nutrition Problems: Swallowing Assessment: Pt denies difficulty swallowing. Mouth: Pt denies difficulty chewing. Abdominal Assessment: Last BM on 07/10/24 noted to be loose. Pt reports BM have not normalized since colonoscopy 2 days ago. Pt noted two days of bowel prep regimen was needed. Appetite: Fair, but improving Cognition: A&O x4 Physical Findings: Jaundice Skin Integrity: Intact. Pt noted hives on legs and abdomen, suspected to be related to ceftriaxone. Edema: RLE & LLE +1 Other Factors: ERCP with balloon dilation, stent placement and sigmoidoscopy on 06/28/2024 Obstructive jaundice with high-grade hilar stricture EGD on 07/02/24, noted GI bleed was resolved with stent repositioning Colonoscopy 07/08/24: 5 cm rectal mass noted. Biopsy taken, results pending. Rectal mass concerning for adenocarcinoma E. Coli Bacteremia with Leukocytosis Nutrition Data/Clinical Indicators of Nutrition Status: Height: 162.6 cm (5' 4 ) Weight: 70.7 kg (155 lb 13.8 oz) BMI (Calculated): 26.74 Wt Readings from Last 10 Encounters: 07/09/24 70.7 kg (155 lb 13.8 oz) 07/07/24 70.9 kg (156 lb 4.9 oz) bed scale 07/03/24 67.5 kg (148 lb 13 oz) 06/28/24 68.4 kg (150 lb 12.7 oz) surgery 09/12/18 66.2 kg (146 lb) IBW: 54.5 kg UBW: 145-150 lb per patient. Weight change: Pt suspects some minor weight loss in the last week r/t poor intakes, and diarrhea, but otherwise stable. Pt noted she was 150 lb at doctor's last week. Limited documented wt hx suggests weight is stable. Wt during admission is stable. Nutrition Assessment: 07/03/24: RN reports pt was liberated from clear liquid diet to regular diet this morning. Spoke with patient who noted she had just ordered breakfast. Pt reports a low appetite, but noted it is improving. Pt noted she feels she is getting stronger. Pt consumed about half of the clear liquid diet tray this morning and tolerated it well. Pt reports not being able to eat much since last (06/27) r/t GI symptoms and procedures. Prior to that pt reports good access to food, able to grocery shop and cook for herself. No special diets APPLIED BEHAVIOR SPECIALIST. Pt consumed 3 meals per day of coffee, cereal, eggs, Spanish yogurt, cottage cheese (breakfast), cheese, bread, blueberries, walnut (lunch) and soup, meat, and potatoes (dinner) 07/10/24: Pt reports appetite is improving. Pt ordered egg omelette, toast, sausage, V8 juice and tea for breakfast, administrative underwriter observed 100% of meal consumed. Pt was asked if any snacks could be provided to her. Pt denied at this time. Will continue to monitor intakes, appetite, GI symptoms and plan of care. Dietary Orders (From admission, onward) Start Ordered 07/08/24 1506 Regular Diet Diet effective now Question: Room Service? Answer: Yes 07/08/24 1505 07/08/24 1342 Special Kitchen Request Once Comments: Pt requesting chicken noodle soup, rye toast with butter, grapes, cream soda if available (or lenard hannah), hot water and tea (with sugar and cream), and mashed potatoes with turkey gravy on the side. Thank you. 07/08/24 1346 07/04/24 1623 Special Kitchen Request Once Comments: X2 grapes x2 V8 juice 07/04/24 1623 07/02/24 1847 Special Kitchen Request Once Comments: Fruit cup, fresh fruit, auto fill remainder of tray 07/02/24 1846 Meal Intakes: 50% x 1 documented meal. Music Orchestrator observed 100% of breakfast meal Nutrition Risk: Moderate Nutrition Needs: Needs based on: ideal body weight (54.5 kg) Calorie needs: 2161-1603 kcals/day based on Equation: 25-30 kcal/kg Protein needs: 55-65 g/day based on 1-1.2 g/kg Fluid needs: 1363 ml/day based on 25 ml/kg Nutrition Diagnosis: Altered GI function related to gastrointestinal bleed as evidenced by blood in stools, diarrhea, and EGD findings.-continues Malnutrition Assessment: Per Registered Dietitian assessment and evaluation, patient does not currently meet criteria OR there is not enough information to support the diagnosis of malnutrition per the clinical criteria set by the Academy of Nutrition and Dietetics (AND) and the [place] [employer] of Enteral and Parenteral Nutrition (ASPEN). Treatment Plan: Continue with regular diet as ordered. Adjust recommendations prn Snacks not recommended at this time per pt preference. Monitor GI function and bowel movements, and medically manage. Monitor weight and avoid unintentional weight loss. Goals: Adequate po intakes (kcals and protein); >75% meals No significant unintentional wt loss GI fxn wnl To reach the Clinical Dietitian, please utilize [employer] chat Monday-Monday from 8AM-4PM or call extension [phone]. For weekends (Monday-Monday) and hols, the Clinical Dietitian can be reached via pager ([phone]) from 9AM-3PM. The Clinical Nutrition Department is unable to respond to [employer] chat messages on Sundays and . PROGRESS Observed: 07/10/2024 10:36 AM Status: COMPLETED Source: [facility] Teaching GI Service Con beto Gastroenterology/Hepatology Progress Note IDENTIFYING DATA PATIENT: Jenna Kumar ADMIT DATE: 07/01/2024 TIME OF EVALUATION: 07/10/2024 10:44 AM HOSPITAL STAY: LOS: 9 days REASON FOR HOSPITALIZATION: Hematochezia SUBJECTIVE/INTERVAL HISTORY Jenna Kumar's overnight events were reviewed. The patient's hemoglobin increased from 8.1 to 9.7, while white blood cell count has risen from 17.11 to 19.79. Liver function tests show a worsening trend with increasing AST, ALT, and alkaline phosphatase, while total bilirubin remains elevated with minimal change. AST has increased from 64 U/L to 86 U/L, ALT has increased from 60 U/L to 67 U/L, and alkaline phosphatase has risen from 612 U/L to 791 U/L. Total bilirubin has slightly increased from 6.0 mg/dL to 6.1 mg/dL. The patient is resting comfortably in bed, reports feeling overall well, denies nausea, or vomiting, and notes an improvement in appetite. Hemodynamically, the patient is stable with the following vitals: BP 123/64 mmHg, heart rate 84 bpm, respiratory rate 24 breaths/min, temperature 36.8???C (98.2???F), and SpO2 93%. OBJECTIVE MEDICATIONS SCHEDULED: @MEDSCURRENTMD@ PRNs: acetaminophen, 650 mg, q8h PRN hydrocortisone, , BID PRN melatonin, 6 mg, Nightly PRN ondansetron, 4 mg, q6h PRN Physical VITALS: BP 123/64 Pulse 84 Temp 36.8 ???C (98.2 ???F) (Temporal) Resp 24 Ht 1.626 m (5' 4 ) Wt 70.7 kg (155 lb 13.8 oz) SpO2 93% BMI 26.75 kg/m??? GEN: Alert and oriented x3, NAD HEENT: Atraumatic, normocephalic, scleral icterus CV: No edema visualized PULM: Respirations even and unlabored ABD: Soft, non-distended, mild epigastric tenderness upon palpation without guarding or rigidity NEURO: Moves all visualized extremities spontaneously LABS AND IMAGING CBC: Lab Results Component Value Date WBC 19.79 (H) 07/10/2024 RBC 3.36 (L) 07/10/2024 HGB 9.7 (L) 07/10/2024 HCT 30.7 (L) 07/10/2024 MCV 91.4 07/10/2024 RDW 22.9 (H) 07/10/2024 PLT 471 (H) 07/10/2024 CMP: Lab Results Component Value Date NA 133 (L) 07/10/2024 K 3.5 07/10/2024 CL 101 07/10/2024 CO2 26 07/10/2024 BUN 9 07/10/2024 PROT 5.1 (L) 07/10/2024 IMAGING: Colonoscopy 07/08/2024: Impression: Normal colonic mucosa with no significant abnormalities identified in the cecum, ascending, transverse, and descending colon. Presence of a large laterally spreading polypoid rectal mass measuring 5 cm, involving the full circumference of the rectum and extending from the dentate line up to 5 cm from the anal verge. Multiple biopsies were obtained. Recommendations: Await pathology results of the biopsied rectal mass. Discuss findings and next steps with the patient once pathology results are available. EGD 07/03/2024: Impression: Small duodenal ulcer oozing blood caused by a direct pressure of the biliary stent on the opposite wall of the second part of the duodenum. The position of the stent was adjusted away from the duodenum wound and the site of the bleeding was clipped with. Hemoclips and injected with epinephrine. Complete hemostasis was achieved. The site of the sphincterotomy was unremarkable and bile was noted draining from the common bile duct as as well as from the biliary stents. Recommendations: Start clear liquid diet. Start IV PPI. Follow-up H&H Awaiting histopathology results from previous ERCP/EUS and flexible sigmoidoscopy with biopsies. Further plan depends upon the histopathology results. ASSESSMENT AND PLAN Jenna Kumar is a 79 y.o. female with a history of left bundle branch block, transferred for evaluation of new-onset gastrointestinal bleeding and progressive fatigue. She initially presented with jaundice, white stools, and dark urine in early June, prompting workup revealing cholestasis and hepatic dysfunction. 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 Endoscopic evaluation on 06/28/2024, including ERCP with balloon dilation and stent placement, revealed a high-grade hilar stricture, a large hepatic mass, and a common hepatic duct mass. Post-procedure, she developed worsening fatigue, anorexia, pruritus, dark yellow urine, and recurrent dark red rectal bleeding. 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 EGD with EUS/ERCP on 06/28/2024 revealed high-grade hilar stricture with diffusely dilated left intrahepatic biliary system. Right intrahepatic ducts could not be opacified. Biopsy results positive for adenocarcinoma. 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 Biopsies obtained and pending Acute blood loss anemia Patient experienced dark red rectal bleeding with worsening fatigue. Hemoglobin levels declined to 8.1 g/dL, requiring 2 units of PRBC transfusion. EGD on 07/02/2024 identified a small duodenal ulcer with active oozing, likely due to pressure from the biliary stent. Stent was repositioned to relieve pressure, and endoscopic hemostasis was achieved with hemoclips and epinephrine injection. The sphincterotomy site was unremarkable, and bile was draining appropriately from the common bile duct and biliary stents. Colonoscopy 07/08/2024 results as above E. Coli Bacteremia with Leukocytosis Plan Okay to continue regular diet as tolerated from GI standpoint Follow-up rectal biopsy results Continue Protonix 40 mg BID Trend H&H and monitor for overt GI bleeding, transfuse as needed Monitor LFTs Oncology, ID on board, appreciate input Remainder of care per primary The case will be discussed with the attending physician For Questions please contact us at: [facility] 6 am to 4 pm weekdays in house Phone extension: [phone] 4 pm to 6 am or weekends please contact the paradi operator to page the fellow applications support lead MANUAL DIFFERENTIAL Collected: 07/10/2024 8:[address] atus: ANNALEE Source: [facility] TYPE CODE TESTS RESULT OUT OF RANGE REFERENCE UNITS LAB 107 METAMYELOCYTES/1 0 0 LEUKOCYTES IN BLOOD CELLAVISION 2.0 High 0.0-0.0 % LAB 109 VARIANT LYMPHOCYTES/100 LEUKOCYTES IN BLOOD CELLAVISION 0.0 0.0-0.0 % LAB [id number] NEUTROPHILS (10*3/UL) IN BLOOD BY CALCULATION 13.5 High 1.6-7.6 10*3/uL LAB [id number] LYMPHOCYTES (10*3/UL) IN BLOOD BY CALCULATION 3.80 1.20-4.00 10*3/uL LAB [id number] MONOCYTES (10*3/UL) IN BLOOD BY CALCUATION 0.91 0.10-1.00 10*3/uL LAB [id number] EOSINOPHILS (10*3/UL) IN BLOOD BY CALCULATION 1.19 High 0.00-0.50 10*3/uL LAB [id number] BASOPHILS (10*3/UL) IN BLOOD BY CALCULATION 0.00 0.00-0.20 10*3/uL LAB 110 METAMYELOCYTES (10*3/UL) IN BLOOD BY CALCULATION 0.40 High 0.00 10*3/uL LAB 114 VARIANT LYMPHOCYTES (10*3/UL) IN BLOOD BY CALCULATION 0.00 0.00 10*3/uL LAB [id number] ANISOCYTOSIS PRESENCE IN BLOOD BY LIGHT MICROSCOPY Moderate LAB [id number] POIKILOCYTOSIS (PRESENCE) IN BLOOD BY LIGHT MICROSCOPY [facility] [id number] POLYCHROMASIA IN BLOOD BY LIGHT MICROSCOPY Moderate [facility] [id number] HYPOCHROMIA (PRESENCE) IN BLOOD BY LIGHT MICROSCOPY [facility] [id number] PLATELETS GIANT PRESENCE IN BLOOD BY LIGHT MICROSCOPY Present LAB [id number] NEUTROPHILS/100 LEUKOCYTES IN BLOOD BY AUTOMATED COUNT 68.2 40.0-72.0 % LAB [id number] LYMPHOCYTES/100 LEUKOCYTES IN BLOOD BY AUTOMATED COUNT 19.2 Low 20.0-45.0 % LAB [id number] MONOCYTES/100 LEUKOCYTES IN BLOOD BY AUTOMATED COUNT 4.6 Low 5.0-12.0 % LAB [id number] EOSINOPHILS/100 LEUKOCYTES IN BLOOD BY AUTOMATED COUNT 6.0 0.0-6.0 % LAB [id number] BASOPHILS/100 LEUKOCYTES IN BLOOD BY AUTOMATED COUNT 0.0 0.0-1.0 % LAB 2633 PLASMA CELLS/100 LEUKOCYTES IN BLOOD 0 0 % Performed By: #### [id number] # ### [facility] ([facility]ONATH[facility]) [address] [place] [address] COMPREHENSIVE METABOLIC PANEL Collected: 07/10/2024 8 :23 AM Status: UNK Source: [facility] TYPE CODE TESTS RESULT OUT OF RANGE REFERENCE UNITS LAB 4993843 SODIUM (MMOL/L) IN SER/PLAS 133 Low 136-145 mmol/L LAB [id number] POTASSIUM (MMOL/ L) IN SER/PLAS 3.5 3.5-5.1 mmol/L LAB 8407867 CHLORIDE (MMOL/L ) IN SER/PLAS 101 98-107 mmol/L LAB 3149601 CARBON DIOXIDE, TOTAL (MMOL/L) IN SER/PLAS 26 21-31 mmol/L LAB [id number] ANION GAP IN SER/PLAS 10 7-20 mmol/L LAB 3824367 UREA NITROGEN (MG/DL) IN SER/PLAS 9 7-25 mg/dL LAB 5586373 CREATININE (MG/D L) IN SER/PLAS 0.67 0.60-1.20 mg/dL LAB 7765472 UREA NITROGEN/CREATININ E (MASS RATIO) IN SER/PLAS 13.4 NA LAB 3425994 GLUCOSE (MG/DL) IN SER/PLAS 101 High 70-100 mg/dL LAB 8046555 CALCIUM (MG/DL) IN SER/PLAS 8.0 Low 8.6-10.3 mg/dL LAB 8665710 ASPARTATE AMINOTRANSFERASE (SGOT) (U/L) IN SER/PLAS 86 High 13-39 U/L LAB [id number] ALANINE AMINOTRANSFERASE (SGPT) (U/L) IN SER/PLAS 67 High 7-52 U/L LAB 7483912 ALKALINE PHOSPHATASE (U/L) IN SER/PLAS 791 High 34-104 U/L LAB [id number] PROTEIN (G/DL) I N SER/PLAS 5.1 Low 6.0-8.3 g/dL LAB [id number] ALBUMIN (G/DL) I N SER/PLAS 2.5 Low 3.5-5.7 g/dL LAB 6402949 BILIRUBIN TOTAL (MG/DL) IN SER/PLAS 6.1 High 0.3-1.0 mg/dL LAB 1934120 GLOMERULAR FILTRATION RATE ML/MIN/1.73 SQ M.PREDICTED 87.8 >60.0 mL/min /1.73m *2 Result Comment: [facility]???s estimated glomerular filtration rate (eGFR) will [...] one group of individuals. Performed By: #### [id number] ### # [facility] (ERINOS[facility]) [address] [place] [address] CBC WITH AUTO DIFFERENTIAL Collected: 07/10/2024 8:23 AM Status: UNK Source: [facility] TYPE CODE TESTS RESULT OUT OF RANGE REFERENCE UNITS LAB [id number] LEUKOCYTES(10*3/ UL) IN BLOOD BY AUTOMATED COUNT 19.79 High 4.00-10.60 10*3/uL LAB [id number] ERYTHROCYTES (10*6/UL) IN BLOOD BY AUTOMATED COUNT 3.36 Low 3.80-5.00 10*6/uL LAB [id number] HEMOGLOBIN (G/DL) IN BLOOD 9.7 Low 12.0-15.0 g/dL LAB 9069076 HEMATOCRIT (%) IN BLOOD BY AUTOMATED COUNT 30.7 Low 36.0-48.0 % LAB 1829789 ERYTHROCYTE MEAN CORPUSCULAR VOLUME (FL) BY AUTOMATED COUNT 91.4 82.0-98.0 fL LAB 8157886 ERYTHROCYTE MEAN CORPUSCULAR HEMOGLOBIN (PG) BY AUTOMATED COUNT 28.9 27.0-33.0 pg LAB 4735032 ERYTHROCYTE MEAN CORPUSCULAR HEMOGLOBIN CONCENTRATION (G/DL) BY AUTOMATED 31.6 Low 32.0-35.0 g/dL LAB 9109030 ERYTHROCYTE DISTRIBUTION WIDTH (RATIO) BY AUTOMATED COUNT 22.9 High 11.5-15.0 % LAB 1506372 PLATELETS (10*3/UL) IN BLOOD AUTOMATED COUNT 471 High 150-400 10*3/uL LAB 254 NRBC (PER 100 WBCS) BY AUTOMATED COUNT 0.0 0 % LAB 2878 IMMATURE PLATELET FRACTION % 5.4 0.8-6.3 % Performed By: #### [id number] # ### [facility] ([facility]) [address] [place] [address] PROGRESS Observed: 07/10/2024 8:01 AM Status: COMPLETED Source: [facility] will accept pt if Dc'd today/tomorrow otherwise they will not have staffing for pt. Pt is still planning to return home and will decide after DC if she wants SNF. Pt reported [facility] denied and she would want to go to [facility] in [place]. Informed pt if after DC to home she decides she wants SNF pt will need to contact SNF to make arrangements within 30 day window. DC after GI recommendations. 30 Observed: 07/10/2024 6:54 AM Status: COMPLETED Source: [facility] Daily Case Management Update Multidisciplinary rounds have been completed. Barriers to Discharge: 07/10 S/p Colonoscopy with biopsy for further eval of rectal mass, pending results. Await GI sign off, monitoring liver function panel. Plan to return home with [facility]. Diet: Dietary Orders (From admission, onward) Start Ordered 07/08/24 1506 Regular Diet Diet effective now Question: Room Service? Answer: Yes 07/08/24 1505 07/08/24 1342 Special Kitchen Request Once Comments: Pt requesting chicken noodle soup, rye toast with butter, grapes, cream soda if available (or lenard hannah), hot water and tea (with sugar and cream), and mashed potatoes with turkey gravy on the side. Thank you. 07/08/24 1346 07/04/24 1623 Special Kitchen Request Once Comments: X2 grapes x2 V8 juice 07/04/24 1623 07/02/24 1847 Special Kitchen Request Once Comments: Fruit cup, fresh fruit, auto fill remainder of tray 07/02/24 1846 Physician Expected Discharge Date: 07/09/2024 Discharge Delays: PT Six Click Score: 18 OT Six Click Score: 16 PT Recommendations: alf facility placement OT Recommendations: alf facility placement New Consults: Consult Orders (From admission, onward) Start Ordered 07/01/242139 Inpatient consult to Hospitalist Once Specialty: Internal Medicine Provider: (Not yet assigned) Question Answer Comment Consulting Group HOSPITALIST (ADMIT/FLOAT) Reason for Consult? GI bleed Level of Consultation Consultation and Management 07/01/24213907/01/242135 Inpatient consult to Gastroenterology Once Specialty: Gastroenterology Provider: (Not yet assigned) Question Answer Comment Consulting Group GASTROENTEROLOGY TEAM Reason for Consult? GI bleed Level of Consultation Consultation and Management 07/01/242134 Therapy Orders (From admission, onward) Start Ordered 07/05/24 0920 OT eval and treat Until therapy completed Question: Reason for OT? Answer: eval and tx 07/05/24 0919 07/04/24 1023 PT eval and treat Until therapy completed Question: Reason for PT? Answer: pt says she is weak and cant be dc 07/04/24 1022 30 Observed: 07/09/2024 10:44 PM Status: COMPLETED Source: [facility] Problem: Pain - Adult Goal: Verbalizes/displays adequate comfort level or baseline comfort level Outcome: Progressing Flowsheets (Taken 07/08/202441) Verbalizes/displays adequate comfort level or baseline comfort level: Encourage patient to monitor pain and request assistance Assess pain using appropriate pain scale Administer analgesics based on type and severity of pain and evaluate response Implement non-pharmacological measures as appropriate and evaluate response Problem: Safety - Adult Goal: Free from fall injury Outcome: Progressing Flowsheets (Taken 07/08/202441) Free from fall injury: Assess patient frequently for physical needs Identify cognitive and physical deficits and behaviors that affect risk of falls [place] fall precautions as indicated by assessment Educate patient/family on patient safety, including physical limitations Instruct patient to call for assistance with activity based on assessment Modify environment to reduce risk of injury Problem: Discharge Planning Goal: Discharge to home or other facility with appropriate resources Outcome: Progressing Flowsheets (Taken 07/08/202441) Discharge to home or other facility with appropriate resources: Identify barriers to discharge with patient and caregiver Arrange for needed discharge resources and transportation as appropriate Identify discharge learning needs (meds, wound care, etc) Problem: Chronic Conditions and Co-morbidities Goal: Patient's chronic conditions and co-morbidity symptoms are monitored and maintained or improved Outcome: Progressing Flowsheets (Taken 07/08/202441) Care Plan - Patient's Chronic Conditions and Co-Morbidity Symptoms are Monitored and Maintained or Improved: Monitor and assess patient's chronic conditions and comorbid symptoms for stability, deterioration, or improvement Collaborate with multidisciplinary team to address chronic and comorbid conditions and prevent exacerbation or deterioration Update acute care plan with appropriate goals if chronic or comorbid symptoms are exacerbated and prevent overall improvement and discharge Problem: Skin/Tissue Integrity - Adult Goal: Skin integrity remains intact Outcome: Progressing Flowsheets (Taken 07/09/2024929 by Janel Saldivar RN) Skin integrity remains intact: Monitor for areas of redness and/or skin breakdown Problem: Musculoskeletal - Adult Goal: Return mobility to safest level of function Outcome: Progressing Flowsheets (Taken 07/08/202441) Return mobility to safest level of function: Assess patient stability and activity tolerance for standing, transferring and ambulating with or without assistive devices Assist with transfers and ambulation using safe patient handling equipment as needed Obtain physical therapy/occupational therapy consults as needed Apply continuous passive motion per provider or physical therapy orders to increase flexion toward goal Problem: Metabolic/Fluid and Electrolytes - Adult Goal: Electrolytes maintained within normal limits Outcome: Progressing Flowsheets (Taken 07/08/202441) Electrolytes maintained within normal limits: Monitor labs and assess patient for signs and symptoms of electrolyte imbalances Administer electrolyte replacement as ordered Monitor response to electrolyte replacements, including repeat lab results as appropriate Problem: Hematologic - Adult Goal: Maintains hematologic stability Outcome: Progressing Flowsheets (Taken 07/08/202441) Maintains hematologic stability: Assess for signs and symptoms of bleeding or hemorrhage Monitor labs for bleeding or clotting disorders Administer blood products/factors as ordered Problem: Cardiovascular - Adult Goal: Maintains optimal cardiac output and hemodynamic stability Outcome: Progressing Flowsheets (Taken 07/08/202441) Maintains optimal cardiac output and hemodynamic stability: Monitor blood pressure and heart rate Assess for signs of decreased cardiac output Problem: Gastrointestinal - Adult Goal: Maintains or returns to baseline bowel function Outcome: Progressing Flowsheets (Taken 07/08/202441) Maintains or returns to baseline bowel function: Assess bowel function Goal: Maintains adequate nutritional intake Outcome: Progressing Flowsheets (Taken 07/08/202441) Maintains adequate nutritional intake: Monitor percentage of each meal consumed Identify factors contributing to decreased intake, treat as appropriate Problem: Genitourinary - Adult Goal: Absence of urinary retention Outcome: Progressing Flowsheets (Taken 07/08/202441) Absence of urinary retention: Assess patient???s ability to void and empty bladder Monitor intake/output and perform bladder scan as needed Problem: Infection - Adult Goal: Absence of infection at discharge Outcome: Progressing Flowsheets (Taken 07/08/202441) Absence of infection at discharge: Assess and monitor for signs and symptoms of infection Monitor lab/diagnostic results The patient is Moderately Stable - Low risk of patient condition declining or worsening The patient's goals for the shift include comfort/rest The clinical goals for the shift include optimize patient treatment options PROGRESS Observed: 07/09/2024 5:32 PM Status: COMPLETED Source: [facility] Attestation signed by Bradley Díaz MD at 07/10/2024 6:38 AM The patient was seen and examined. Agree with assessment and plan. 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 The other potential cause of the hilar mass and metastasis to the liver could be the rectum. Large rectal mass was identified. Initial biopsies revealed adenoma. The biopsies were repeated 48 hours ago. The patient is status post ERCP with biliary stents placement. Her LFTs have been improving. Slight elevation in alkaline phosphatase and AST was noted yesterday. Will repeat LFTs today to ensure that there is no increase in the liver function test. Will check the biopsies of the rectal today as well. [facility] Teaching GI Service Consult Gastroenterology/Hepatology Progress Note IDENTIFYING DATA PATIENT: Jenna Kumar ADMIT DATE: 07/01/2024 TIME OF EVALUATION: 07/09/2024 5:32 PM HOSPITAL STAY: LOS: 8 days REASON FOR HOSPITALIZATION: Hematochezia SUBJECTIVE/INTERVAL HISTORY Jenna Fonglou's overnight events were reviewed. No overnight issues patient is alert oriented answering the questions Hemodynamically stable Patient underwent colonoscopy yesterday with findings of a large laterally spreading polypoid rectal mass measuring 5 cm, involving the full circumference of the rectum and extending from the dentate line up to 5 cm from the anal verge. Biopsies obtained and pending. Report of having 1 small bowel movement this morning, which contained bright red blood. Hemoglobin remains stable at 8.1 from 8.4. LFTs continue to be elevated (AST 64, ALT 60, ALP 612, TB 6.0). OBJECTIVE MEDICATIONS SCHEDULED: @MEDSCURRENTMD@ PRNs: acetaminophen, 650 mg, q8h PRN hydrocortisone, , BID PRN melatonin, 6 mg, Nightly PRN ondansetron, 4 mg, q6h PRN Physical VITALS: BP 126/64 Pulse 91 Temp 36.5 ???C (97.7 ???F) (Temporal) Resp 19 Ht 1.626 m (5' 4 ) Wt 70.7 kg (155 lb 13.8 oz) SpO2 95% BMI 26.75 kg/m??? GEN: Alert and oriented x3, NAD HEENT: Atraumatic, normocephalic, scleral icterus CV: No edema visualized PULM: Respirations even and unlabored ABD: Soft, non-distended, mild epigastric tenderness upon palpation without guarding or rigidity NEURO: Moves all visualized extremities spontaneously LABS AND IMAGING CBC: Lab Results Component Value Date WBC 17.11 (H) 07/09/2024 RBC 2.74 (L) 07/09/2024 HGB 8.1 (L) 07/09/2024 HCT 25.4 (L) 07/09/2024 MCV 92.7 07/09/2024 RDW 23.0 (H) 07/09/2024 PLT 370 07/09/2024 CMP: Lab Results Component Value Date NA 134 (L) 07/09/2024 K 3.2 (L) 07/09/2024 CL 103 07/09/2024 CO2 25 07/09/2024 BUN 9 07/09/2024 PROT 4.2 (L) 07/09/2024 IMAGING: Colonoscopy 07/08/2024: Impression: Normal colonic mucosa with no significant abnormalities identified in the cecum, ascending, transverse, and descending colon. Presence of a large laterally spreading polypoid rectal mass measuring 5 cm, involving the full circumference of the rectum and extending from the dentate line up to 5 cm from the anal verge. Multiple biopsies were obtained. Recommendations: Await pathology results of the biopsied rectal mass. Discuss findings and next steps with the patient once pathology results are available. EGD 07/03/2024: Impression: Small duodenal ulcer oozing blood caused by a direct pressure of the biliary stent on the opposite wall of the second part of the duodenum. The position of the stent was adjusted away from the duodenum wound and the site of the bleeding was clipped with. Hemoclips and injected with epinephrine. Complete hemostasis was achieved. The site of the sphincterotomy was unremarkable and bile was noted draining from the common bile duct as as well as from the biliary stents. Recommendations: Start clear liquid diet. Start IV PPI. Follow-up H&H Awaiting histopathology results from previous ERCP/EUS and flexible sigmoidoscopy with biopsies. Further plan depends upon the histopathology results. ASSESSMENT AND PLAN Jenna Kumar is a 79 y.o. female with a history of left bundle branch block, transferred for evaluation of new-onset gastrointestinal bleeding and progressive fatigue. She initially presented with jaundice, white stools, and dark urine in early June, prompting workup revealing cholestasis and hepatic dysfunction. 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 Endoscopic evaluation on 06/28/2024, including ERCP with balloon dilation and stent placement, revealed a high-grade hilar stricture, a large hepatic mass, and a common hepatic duct mass. Post-procedure, she developed worsening fatigue, anorexia, pruritus, dark yellow urine, and recurrent dark red rectal bleeding. Labs indicate acute blood loss anemia (Hgb 8.1), Assessment Obstructive jaundice Obstructive jaundice with cholangiocarcinoma s/p ERCP/EUS High-grade hilar stricture with diffuse left intrahepatic biliary dilation. EGD with EUS/ERCP on 06/28/2024 revealed high-grade hilar stricture with diffusely dilated left intrahepatic biliary system. Right intrahepatic ducts could not be opacified. Biopsy results positive for adenocarcinoma. 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 Biopsies obtained and pending Acute blood loss anemia Patient experienced dark red rectal bleeding with worsening fatigue. Hemoglobin levels declined to 8.1 g/dL, requiring 2 units of PRBC transfusion. EGD on 07/02/2024 identified a small duodenal ulcer with active oozing, likely due to pressure from the biliary stent. Stent was repositioned to relieve pressure, and endoscopic hemostasis was achieved with hemoclips and epinephrine injection. The sphincterotomy site was unremarkable, and bile was draining appropriately from the common bile duct and biliary stents. Colonoscopy 07/08/2024 results as above E. Coli Bacteremia with Leukocytosis Plan Continue regular diet as tolerated from GI standpoint Await and review rectal biopsy results Administer Protonix 40 mg twice daily Monitor hemoglobin and hematocrit; transfuse as necessary for significant drops or signs of overt GI bleeding Trend liver function tests daily Collaborate with Oncology for additional insights and management plans Defer remaining aspects of care to the primary team for ongoing management [facility] GI Service 6 am to 4 pm weekdays in house Phone extension: [phone] 4 pm to 6 am or weekends please contact the paradi operator to page the fellow applications support lead PROGRESS Observed: 07/09/2024 4:55 PM Status: COMPLETED Source: [facility] Hospital Medicine Daily Progress Note - 07/09/2024 4:55 PM; Room: [address] [place] [address] Admission: 07/01/2024 9:06 PM; Length of stay: 8 days THE HOSPITALIST TEAM PREFERS TO USE Section 101 CHAT FOR NON-URGENT COMMUNICATION 7AM-7PM. IF I DO NOT RESPOND WITHIN 20 MINUTES OR URGENT MATTERS, PLEASE CALL THROUGH THE SCREEN STRETCHER. FROM 7PM-7AM, PLEASE PAGE [phone](COVR). Code Status: Full Code Barriers to Discharge: Monitoring liver function panel Expected Discharge Date: tomorrow? Discharge Destination: [facility] Overview Patient is seen for evaluation and management of melena, weakness. Jenna Kumar is an 79 y.o. female transferred from [facility] to [facility] ER when she presented to [facility] for recurrent GI bleed increased fatigue weakness and found to have hemoglobin around 7 and blood pressure was low patient was admitted at [facility] on 06/28/2024 with diagnosis of jaundice pruritus [...] symptoms pruritus feeling weak fatigue tired. EGD performed with evidence of small duodenal ulcer 06/16 biliary stent, stent was repositioned. Patient is [...] on 07/08 for biopsies of rectal mass. Subjective Patient seen and examined in the morning. She was doing well this morning. Physical Exam Visit Vitals BP 126/64 Pulse 91 Temp 36.5 ???C (97.7 ???F) (Temporal) Resp 19 Intake/Output Summary (Last 24 hours) at 07/09/2024 1655 Last data filed at 07/09/2024 1646 Gross per 24 hour Intake 683.33 ml Output 200 ml Net 483.33 ml Physical Exam Vitals reviewed. Constitutional: General: She is not in acute distress. Appearance: She is not ill-appearing or toxic-appearing. HENT: Head: Normocephalic and atraumatic. Mouth/Throat: Mouth: Mucous membranes are moist. Eyes: General: No scleral icterus. Extraocular Movements: Extraocular movements intact. Pupils: Pupils are equal, round, and reactive to light. Cardiovascular: Rate and Rhythm: Normal rate. Pulmonary: Effort: Pulmonary effort is normal. No respiratory distress. Breath sounds: No stridor. Abdominal: General: There is no distension. Palpations: Abdomen is soft. There is no mass. Tenderness: There is abdominal tenderness. There is no guarding. Skin: Findings: Rash (hives, lower extremities) present. Neurological: Mental Status: She is alert. Cranial Nerves: No cranial nerve deficit. Psychiatric: Mood and Affect: Mood normal. Behavior: Behavior normal. Thought Content: Thought content normal. Judgment: Judgment normal. Estimated body mass index is 26.75 kg/m??? as calculated from the following: Height as of this encounter: 1.626 m (5' 4 ). Weight as of this encounter: 70.7 kg (155 lb 13.8 oz). Active Inpatient Problems Principal Problem: GI bleed Active Problems: Posthemorrhagic anemia Primary hypertension Hypokalemia Liver mass Obstructive jaundice (CMS/HCC) Assessment and Plan E coli bacteremia with recent biliary stent placement - presently Levaquin and Flagyl - Appreciate infectious disease expertise, plan for repeat culture for bacteremia clearance Urticaria - Meropenem stopped by ID - Benedryl 25mg PO PRN did not help Acute blood loss anemia secondary to duodenal ulcer, stable - Received 2 PRBC transfusions. - EGD performed on 07/02 showed a small duodenal ulcer with active oozing, likely caused by direct pressure from biliary stent on duodenal wall. The stent has been repositioned. Hemostasis achieved. Continue Protonix twice a day.Hemoglobin appears stable Obstructive jaundice with suspected hilar cholangiocarcinoma Left hepatic mass and mass within CBD - EGD with EUS/ERCP on 06/28 revealed high-grade hilar stricture with diffusely dilated left intrahepatic biliary system. Balloon dilatation of CBD followed by brushing and biopsies were performed, 2 biliary stents placed into left intrahepatic ducts after sphincterotomy - Colonoscopy with biopsy completed - Pending biopsy results. Likely will need to be followed up outpatient Rectal mass concerning for adenocarcinoma Flexible sigmoidoscopy on 06/28 showed 5 cm circumferential polypoid rectal mass extends from the dentate line, involving rectal folds, biopsies obtained, Discussed with GI team, planning for colonoscopy today Plan for rectal MRI as an outpatient, Leukocytosis likely reactive in the setting of recent stenting and possible malignancy - improving - 17k on 07/09 - Repeat CBC upon discharge Primary hypertension - Blood pressure is at goal 2/25 AM - losartan is held as patient's blood pressure was borderline. - Continue Lopressor at a lower dose of 12.5 mg twice a day, hold for SBP <110 or HR <60 Hypokalemia, resolved - Supplementation ordered VTE Prophylaxis: Will start likely tomorrow Scheduled Meds [Held by provider] diphenhydrAMINE, 25 mg, intravenous, Once levoFLOXacin, 750 mg, oral, Daily metoprolol tartrate, 12.5 mg, oral, BID metroNIDAZOLE, 500 mg, oral, BID pantoprazole, 40 mg, oral, BID AC polyethylene glycol, 238 g, oral, Once Pertinent Investigations Hematology: Results from last 7 days Lab Units 07/09/24 0504 07/08/24 0706 07/07/24 1126 07/07/24 0337 07/06/24 1255 CRP mg/L -- -- -- -- 121.9* WBC AUTO 10*3/uL 17.11* 17.81* -- < > -- HEMOGLOBIN g/dL 8.1* 8.4* -- < > -- HEMATOCRIT % 25.4* 26.5* -- < > -- MCV fL 92.7 92.3 -- < > -- PLATELETS AUTO 10*3/uL 370 342 -- < > -- INR -- -- 1.03 -- -- < > = values in this interval not displayed. Chemistry: Results from last 7 days Lab Units 07/09/24 0504 07/08/24 0706 07/07/24 0337 07/05/24 0359 07/04/24 0635 07/03/24 0923 SODIUM mmol/L 134* 133* 135* < > 132* 133* POTASSIUM mmol/L 3.2* 3.5 3.6 < > 4.0 3.2* CHLORIDE mmol/L 103 102 102 < > 104 105 CO2 mmol/L 25 28 27 < > 24 21 BUN mg/dL 9 8 11 < > 16 20 CREATININE mg/dL 0.57* 0.60 0.63 < > 0.76 0.72 GLUCOSE mg/dL 92 92 91 < > 106* 128* MAGNESIUM mg/dL -- -- -- -- 1.7* 1.7* CALCIUM mg/dL 7.6* 7.7* 7.8* < > 7.7* 7.6* < > = values in this interval not displayed. Results from last 7 days Lab Units 07/09/24 0504 07/08/24 0706 07/07/24 0337 07/06/24 0421 07/05/24 0359 AST U/L 64* 56* 62* < > 128* ALT U/L 60* 68* 83* < > 130* ALK PHOS U/L 612* 517* 505* < > 649* BILIRUBIN TOTAL mg/dL 6.0* 6.5* 7.7* < > 8.7* BILIRUBIN DIRECT mg/dL 3.6* 3.9* -- -- 5.2* < > = values in this interval not displayed. Historical Values: (Includes values prior to this admission) No results found for: PREALBUMIN , TSH , T3FREE , FREET4 , CORTISOL , FEV1 , TMD5DKG , DLCO , RVSP , HDL , LDL Lab Results Component Value Date [id number] 1,533 (H) 07/04/2024 IRON 84 07/04/2024 TIBC 188 (L) 07/04/2024 CEA 2.2 07/04/2024 CA199 <2 07/04/2024 Imaging ECG 12 lead Normal sinus rhythm with sinus arrhythmia Non-specific intra-ventricular conduction block Anterolateral infarct , age undetermined Abnormal ECG When compared with ECG of 01-JUL-2024 22:03, Premature supraventricular complexes are no longer Present Non-specific intra-ventricular conduction block has replaced Left bundle branch block Anterior infarct is now Present Anterolateral infarct is now Present Confirmed by Daylin LOBO, HUGO Alexandra ([id number]) on 07/08/2024 9:42:00 PM Diagnostic Colonoscopy w Biopsy Table formatting from the original result was not included. Colonoscopy Procedure Note Procedure: Colonoscopy with biopsies. Indications: 79 y.o. female presenting with a complaint of jaundice and severe pruritus. The patient had CT scan of abdomen that revealed 4.6 x 3.4 cm ill-defined hypoattenuating region in segment 4A and B suspicious for primary hepatic neoplasm, i.e. cholangiocarcinoma versus metastatic disease. The CT scan was also suspicious for rectal adenocarcinoma. Her liver function test revealed total bilirubin of 12.9, alkaline phosphatase of 1074, ALT 499 and AST 273. The patient had a recent endoscopic ultrasound with ERCP and flexible sigmoidoscopy to assess the findings of the CT scan and for possible stent placement for the history of jaundice and pruritus. Sedation: MAC Medications: No administrations occurring from 1125 to 1210 on 07/08/24 Attending Physician: Bradley Díaz MD Nursing Student: Alfredo Puri MD Procedure Details: Informed consent was obtained for the procedure, including sedation. Risks of perforation, hemorrhage, adverse drug reaction and aspiration were discussed. The patient was placed in the left lateral decubitus position. The patient was monitored continuously with ECG tracing, pulse oximetry, blood pressure monitoring, and direct observations. A rectal examination was performed. The colonoscope was inserted into the rectum and advanced under direct vision to the cecum, which was identified by the ileocecal valve and appendiceal orifice. A careful inspection was made as the colonoscope was withdrawn, including a retroflexed view of the rectum; findings and interventions are described below. Appropriate photodocumentation was obtained. Events: Procedure Events Event Event Time CLN SCOPE IN 07/08/2024 11:40 AM CLN CECUM REACHED 07/08/2024 11:49 AM CLN SCOPE OUT 07/08/2024 12:09 PM Withdrawal time: 29 Quality of colonic prep: Poor Specimens: ID Type Source Tests Collected by Time A : RECTUM MASS RULE OUT MALIGNANCY Tissue Rectum HISTOLOGY - TISSUE EXAM Rowena Gonzalez RN 07/08/2024 1203 Complications: None Estimated blood loss: Minimal Disposition: Inpatient leung Condition: Stable Endoscopic findings: Circumferential rectal mass palpated during digital rectal examination. Normal colonic mucosa throughout the cecum, ascending colon, transverse colon, and descending colon. No large tumors, polyps, or other significant findings. Large laterally spreading polypoid rectal mass, measuring 5 cm, extending from the dentate line up to 5 cm involving the full circumference of the rectum. Multiple biopsies were obtained. Impression: Normal colonic mucosa with no significant abnormalities identified in the cecum, ascending, transverse, and descending colon. Presence of a large laterally spreading polypoid rectal mass measuring 5 cm, involving the full circumference of the rectum and extending from the dentate line up to 5 cm from the anal verge. Multiple biopsies were obtained. Recommendations: Resume regular diet Await pathology results of the biopsied rectal mass. Discuss findings and next steps with the patient once pathology results are available. Attending Attestation: I was present and scrubbed for the entire procedure. Discharge Planning Expected Discharge Disposition: [place] [facility] [place] Discharge Recommendations: alf facility placement OT Discharge Recommendations: alf facility placement Signed Albert Collier MD [facility] Medicine 07/09/2024 4:55 PM PROGRESS Observed: 07/09/2024 3:53 PM Status: COMPLETED Source: [facility] Physical Therapy Physical Therapy Treatment Patient Name: Jenna Kumar : 1945 Today's Date: 07/09/2024 Patient Active Problem List Diagnosis GI bleed Posthemorrhagic anemia Jaundice Primary hypertension Hypokalemia Liver mass Obstructive jaundice (CMS/HCC) Start Time: 1422 Stop Time: 1446 Time Calculation (min): 24 min Objective General Visit Information: PT Last Visit PT Received On: 07/09/24 General Subjective: Patient checked twice before session able to be started. Initial attempt, patient was receiving IV potassium and reported burning in forearm. She asked administrative underwriter to return. In afternoon, administrative underwriter arrived to find patient eating lunch. After lunch, patient agreeable to walk in room and also needed to use bathroom. Sat in chair x 8 minutes, then wishing to return to bed. Pain Pain Assessment Pain Assessment: No/denies pain Cognition Cognition Overall Cognitive Status: Within Functional Limits General Assessment General Assessment Skin Integrity: Jaundiced skin and sclera. [place] rash noted on back, chest, extremities. Generalized edema noted throughout entire visualized body. Patient denies that rash or skin itches. General Assessments: Activity Tolerance Activity Tolerance Comments: Ambulates to bathroom, uses toilet, ambulates to window then chair by sink, sits in bedside chair x7 minutes, walks in room a second time. Movements are slow. Patient reports fatigue w/ short episodes of activity/tasks. Cognition Overall Cognitive Status: Within Functional Limits Treatment: Therapeutic Activity Therapeutic Activity 1: Patient dons socks while supported in bed w/ HOB elevated about 60 deg. Does not pull shoulders away from bed. Dons L sock using figure 4 position, R sock by flexing hip and knee as in performing a heel slide. Therapeutic Activity 2: Patient able to perform pericare in sitting after use of toilet. Able to manage brief in standing before and after toilet use. Supervision for safety d/t report of fatigue, new need for walker for balance and energy conservation. Ambulation 1 Surface 1: Level tile Device 1: Rolling walker Assistance 1: Distant supervision Quality of Gait 1: Decreased speed, decreased step height and length; cues to remain aligned with walker during maneuvering in small spaces. Comments/Distance (ft) 1: 18', 24', 15', 30' Bed Mobility Bed Mobility: Yes Bed Mobility 1 Bed Mobility From 1: Supine (HOB elevated 60 deg) Bed Mobility Type 1: To and from Bed Mobility to 1: Short sit Level of Assistance 1: Close supervision Bed Mobility Comments 1: use of bed rail both in and out of bed Transfers Transfer: Yes Transfer 1 Transfer From 1: Bed Transfer Type 1: To and from Transfer to 1: Stand Transfer Device 1: rolling walker Transfer Level of Assistance 1: Close supervision Transfers 2 Transfer From 2: Toilet Transfer Type 2: To and from Transfer to 2: Stand Transfer Device 2: grab bars Transfer Level of Assistance 2: Close supervision Transfers 3 Transfer From 3: Chair with arms Transfer Type 3: To and from Transfer to 3: Stand Transfer Device 3: rolling walker Transfer Level of Assistance 3: Close supervision Trials/Comments 3: Verbal cues needed 50% of trials to remind patient to not pull up on walker. Assessment/Plan PT Assessment Evaluation/Treatment Tolerance: Patient limited by fatigue Goals: Multi-Disciplinary Problems (from Physical Therapy) Active Problems Problem: PT Misc Start Date: 07/04/24 Goal Start Date Expected End Date End Date Patient will perform bed mobility from flat bed independently without use of bed rails. 07/04/24 07/18/24 -- Goal Start Date Expected End Date End Date Pt to progress seated and standing balance to allow return to prior level of functional activity, ADLs and tasks 07/04/24 07/18/24 -- Goal Start Date Expected End Date End Date Pt to ambulate 150' independently to improve ability to safely navigate home; demonstrating safe/proper use of RW 07/04/24 07/18/24 -- Goal Start Date Expected End Date End Date Stairs as needed to access home, CGA 07/04/24 07/18/24 -- Goal Start Date Expected End Date End Date Pt to perform 45 min session including gait and standing dynamic activities to facilitate return to independent ADLs and tasks; with minimal rest breaks and vitals remaining in normal limits to improve endurance. 07/04/24 07/18/24 -- Sharri Valadez PT, [facility] Acute Rehabilitation PROGRESS Observed: 07/09/2024 2:45 PM Status: COMPLETED Source: [facility] Occupational Therapy Name: Jenna Kumar Date of : 1945 Today's Date: 07/09/24 Pt is unable to be seen for therapy at this time secondary to patient finishing with PT and defers OT session at this time . Will check back and complete therapy session as appropriate. Check No Charge Time attempted: 1445P PROGRESS Observed: 07/09/2024 10:14 AM Status: COMPLETED Source: [facility] Teaching [facility]Hepatology Progress Note IDENTIFYING DATA PATIENT: Jenna Kumar ADMIT DATE: 07/01/2024 TIME OF EVALUATION: 07/09/2024 10:14 AM HOSPITAL STAY: LOS: 8 days REASON FOR HOSPITALIZATION: Hematochezia SUBJECTIVE/INTERVAL HISTORY Jenna Kumar's overnight events were reviewed. Patient underwent colonoscopy yesterday with findings of a large laterally spreading polypoid rectal mass measuring 5 cm, involving the full circumference of the rectum and extending from the dentate line up to 5 cm from the anal verge. Biopsies obtained and pending. Today patient seen and evaluated at bedside. She reports having had 1 small bowel movement this morning, which contained bright red blood. Also endorses epigastric pain, which began yesterday following colonoscopy. Tolerating a regular diet without nausea or vomiting. Hemoglobin remains stable at 8.1 from 8.4. LFTs continue to be elevated (AST 64, ALT 60, ALP 612, TB 6.0). OBJECTIVE MEDICATIONS SCHEDULED: @MEDSCURRENTMD@ PRNs: acetaminophen, 650 mg, q8h PRN diphenhydrAMINE, 25 mg, q6h PRN hydrocortisone, 25 mg, BID PRN hydrOXYzine HCL, 10 mg, q6h PRN melatonin, 6 mg, Nightly PRN ondansetron, 4 mg, q6h PRN Physical VITALS: BP 120/60 Pulse 72 Temp 36.5 ???C (97.7 ???F) (Temporal) Resp 19 Ht 1.626 m (5' 4 ) Wt 70.7 kg (155 lb 13.8 oz) SpO2 95% BMI 26.75 kg/m??? GEN: Alert and oriented x3, NAD HEENT: Atraumatic, normocephalic, scleral icterus CV: No edema visualized PULM: Respirations even and unlabored ABD: Soft, non-distended, mild epigastric tenderness upon palpation without guarding or rigidity NEURO: Moves all visualized extremities spontaneously LABS AND IMAGING CBC: Lab Results Component Value Date WBC 17.11 (H) 07/09/2024 RBC 2.74 (L) 07/09/2024 HGB 8.1 (L) 07/09/2024 HCT 25.4 (L) 07/09/2024 MCV 92.7 07/09/2024 RDW 23.0 (H) 07/09/2024 PLT 370 07/09/2024 CMP: Lab Results Component Value Date NA 134 (L) 07/09/2024 K 3.2 (L) 07/09/2024 CL 103 07/09/2024 CO2 25 07/09/2024 BUN 9 07/09/2024 PROT 4.2 (L) 07/09/2024 IMAGING: Colonoscopy 07/08/2024: Impression: Normal colonic mucosa with no significant abnormalities identified in the cecum, ascending, transverse, and descending colon. Presence of a large laterally spreading polypoid rectal mass measuring 5 cm, involving the full circumference of the rectum and extending from the dentate line up to 5 cm from the anal verge. Multiple biopsies were obtained. Recommendations: Await pathology results of the biopsied rectal mass. Discuss findings and next steps with the patient once pathology results are available. EGD 07/03/2024: Impression: Small duodenal ulcer oozing blood caused by a direct pressure of the biliary stent on the opposite wall of the second part of the duodenum. The position of the stent was adjusted away from the duodenum wound and the site of the bleeding was clipped with. Hemoclips and injected with epinephrine. Complete hemostasis was achieved. The site of the sphincterotomy was unremarkable and bile was noted draining from the common bile duct as as well as from the biliary stents. Recommendations: Start clear liquid diet. Start IV PPI. Follow-up H&H Awaiting histopathology results from previous ERCP/EUS and flexible sigmoidoscopy with biopsies. Further plan depends upon the histopathology results. ASSESSMENT AND PLAN Jenna Kumar is a 79 y.o. female with a history of left bundle branch block, transferred for evaluation of new-onset gastrointestinal bleeding and progressive fatigue. She initially presented with jaundice, white stools, and dark urine in early June, prompting workup revealing cholestasis and hepatic dysfunction. 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 Endoscopic evaluation on 06/28/2024, including ERCP with balloon dilation and stent placement, revealed a high-grade hilar stricture, a large hepatic mass, and a common hepatic duct mass. Post-procedure, she developed worsening fatigue, anorexia, pruritus, dark yellow urine, and recurrent dark red rectal bleeding. 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 EGD with EUS/ERCP on 06/28/2024 revealed high-grade hilar stricture with diffusely dilated left intrahepatic biliary system. Right intrahepatic ducts could not be opacified. Biopsy results positive for adenocarcinoma. 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 Biopsies obtained and pending Acute blood loss anemia Patient experienced dark red rectal bleeding with worsening fatigue. Hemoglobin levels declined to 8.1 g/dL, requiring 2 units of PRBC transfusion. EGD on 07/02/2024 identified a small duodenal ulcer with active oozing, likely due to pressure from the biliary stent. Stent was repositioned to relieve pressure, and endoscopic hemostasis was achieved with hemoclips and epinephrine injection. The sphincterotomy site was unremarkable, and bile was draining appropriately from the common bile duct and biliary stents. Colonoscopy 07/08/2024 results as above E. Coli Bacteremia with Leukocytosis Plan Okay for regular diet as tolerated from GI standpoint Follow-up rectal biopsy results Continue Protonix 40 mg BID Trend H&H and monitor for overt GI bleeding, transfuse as needed Trend daily LFTs Oncology on board, appreciate input Remainder of care per primary The case will be discussed with the attending physician For Questions please contact us at: [place] [facility] 6 am to 4 pm weekdays in house Phone extension: [phone] 4 pm to 6 am or weekends please contact the paradi operator to page the fellow applications support lead PROGRESS Observed: 07/09/2024 9:19 AM Status: COMPLETED Source: [facility] Infectious Diseases - Inpatient daily Progress Note - Patient name: Jenna Kumar Patient Today's Date and Time: 07/09/2024, 9:19 AM Admission Date: 07/01/2024 Assessment/Plan # E Coli bacteremia / GI source s/p recent biliary stent placement # Biliary sepsis # Multiple masses concerning for malignancy including left hepatic mass, mass within the common bile duct, rectal mass # Leukocytosis - On 06/28 the patient underwent balloon dilatation of the CBD with biopsies followed by 2 biliary stents placement into the left intrahepatic ducts in addition to sphincterectomy - 07/04: Blood cultures with E coli. - 07/06: blood cultures negative so far - Today is day 6 of targeted therapy. - Cont. Levaquin and Flagyl. - Can discharge on 10 total days of coverage ending 07/13/2024 # Drug rash - Suspected 06/16 to Ceftriaxone. - Allergy added - Supportive care with antihistamines +/- steroids. - Drug rashes can take some time to resolve Subjective Interval history: Pt seen at bedside. She still has a significant rash. WBC remains elevated but is coming down some. She is feeling better. Still with a significant maculopapular rash. Cr is stable. No n/v/d. Objective Physical Examination: BP 120/60 Pulse 72 Temp 36.5 ???C (97.7 ???F) (Temporal) Resp 19 Ht 1.626 m (5' 4 ) Wt 70.7 kg (155 lb 13.8 oz) SpO2 95% BMI 26.75 kg/m??? Temperature Range: Temp: 36.5 ???C (97.7 ???F) Temp Av.3 ???C (97.4 ???F) Min: 36.1 ???C (97 ???F) Max: 36.5 ???C (97.7 ???F) General Appearance: Awake, alert, no distress. Pulmonary/Chest: clear to auscultation, no wheezes or rales, and unlabored breathing Cardiovascular: Regular rate and rhythm without murmurs Abdomen: soft, non-tender, nondistended, no palpable masses no organomegaly; normal bowel sounds Extremities: No cyanosis, edema, no joint effusions. Neurologic: Alert and oriented x 3, nonfocal. strength and sensation grossly normal Skin: diffuse maculopapular rash. Laboratory data: I have independently reviewed the following labs: Results from last 7 days Lab Units 07/09/24 0504 07/08/24 0706 07/07/24 0337 07/05/24 0359 07/04/24 0635 07/03/24 0713 WBC AUTO 10*3/uL 17.11* 17.81* 21.62* < > 20.22* 19.30* HEMOGLOBIN g/dL 8.1* 8.4* 8.3* < > 8.9* 8.9* 8.9* HEMATOCRIT % 25.4* 26.5* 25.3* < > 27.7* 27.2* 27.3* MCV fL 92.7 92.3 90.0 < > 87.9 84.7 PLATELETS AUTO 10*3/uL 370 342 282 < > 281 266 NEUTROS ABS 10*3/uL 11.6* -- -- -- 16.8* 16.0* EOS ABS MAN 10*3/uL 0.63* -- -- -- 0.95* 0.14 BASOS ABS MAN 10*3/uL 0.09 -- -- -- 0.14 0.00 < > = values in this interval not displayed. Results from last 7 days Lab Units 07/09/24 0504 07/08/24 0706 07/07/24 0337 POTASSIUM mmol/L 3.2* 3.5 3.6 CHLORIDE mmol/L 103 102 102 CO2 mmol/L 25 28 27 BUN mg/dL 9 8 11 CREATININE mg/dL 0.57* 0.60 0.63 GLUCOSE mg/dL 92 92 91 CALCIUM mg/dL 7.6* 7.7* 7.8* ALK PHOS U/L 612* 517* 505* ALT U/L 60* 68* 83* AST U/L 64* 56* 62* Results from last 7 days Lab Units 07/06/24 1255 CRP mg/L 121.9* No lab exists for component: TURBIDITY , SPECIFICGRA , PHURINE , LEUKOCYTE , PROTEIN , BLOODHGB , RBCELLS , RENALEPITH No lab exists for component: TOXIGENICC Imaging Studies: Cultures: Results for orders placed or performed during the hospital encounter of 07/01/24 Blood culture Specimen: Blood, Venous Result Value Ref Range Blood Culture No growth at 2 days Blood culture Specimen: Blood, Venous Result Value Ref Range Blood Culture No growth at 2 days Blood culture, peripheral #2 Specimen: Blood, Venous Result Value Ref Range Blood Culture No growth at 4 days Blood culture, peripheral #1 Specimen: Blood, Venous Result Value Ref Range Blood Culture Escherichia coli (A) Gram Stain Result Aerobic Bottle Yields Gram negative bacilli (A) Susceptibility Escherichia coli - STEPHANIE Amoxicillin + Clavulanate Susceptible ug/ml Ampicillin Susceptible ug/ml Ampicillin + Sulbactam Susceptible ug/ml Cefazolin (Non-Urine) Susceptible Ceftriaxone Susceptible ug/ml Ciprofloxacin Susceptible ug/ml ESBL Screen Negative ug/ml Gentamicin Susceptible ug/ml Tobramycin Susceptible ug/ml Trimethoprim + Sulfamethoxazole Susceptible ug/ml Medications: levoFLOXacin, 750 mg, oral, Daily metoprolol tartrate, 12.5 mg, oral, BID metroNIDAZOLE, 500 mg, oral, BID pantoprazole, 40 mg, oral, BID AC polyethylene glycol, 238 g, oral, Once potassium chloride, 10 mEq, intravenous, q1h This progress note was completed using a voice plate developer system. Every effort was made to ensure accuracy; however, inadvertent computerized plate developer errors may be present. Thank you for allowing us to participate in the care of this patient. Our consultation addresses complex antimicrobial therapy counseling and treatment May Espinosa CNP [facility] Infectious Diseases Please contact us via [employer] chat during business hours. If no response in 15 min, call / page through the paradi operator HEPATIC FUNCTION PANEL Collected: 07/09/2024 5:04 AM Status: UNK Source: [facility] TYPE CODE TESTS RESULT OUT OF RANGE REFERENCE UNITS LAB [id number] BILIRUBIN TOTAL (MG/DL) IN SER/PLAS 6.0 High 0.3-1.0 mg/dL LAB [id number] BILIRUBIN DIRECT (MG/DL) IN SER/PLAS 3.6 High 0-0.2 mg/dL LAB [id number] ALKALINE PHOSPHA TASE (U/L) IN SER/PLAS 612 High 34-104 U/L LAB [id number] ASPARTATE AMINOTRANSFERASE (SGOT) (U/L) IN SER/PLAS 64 High 13-39 U/L LAB [id number] ALANINE AMINOTRANSFERASE (SGPT) (U/L) IN SER/PLAS 60 High 7-52 U/L LAB [id number] PROTEIN (G/DL) I N SER/PLAS 4.2 Low 6.0-8.3 g/dL LAB [id number] ALBUMIN (G/DL) I N SER/PLAS 2.1 Low 3.5-5.7 g/dL Performed By: #### [id number] ### # [facility] ([place]) [address] [place] [address] BASIC METABOLIC PANEL Collected: 2024 5:04 AM Status: UNK Source: [facility] TYPE CODE TESTS RESULT OUT OF RANGE REFERENCE UNITS LAB [id number] SODIUM (MMOL/L) IN SER/PLAS 134 Low 136-145 mmol/L LAB [id number] POTASSIUM (MMOL/L) IN SER/PLAS 3.2 Low 3.5-5.1 mmol/L LAB [id number] CHLORIDE (MMOL/L) IN SER/PLAS 103 98-107 mmol/L LAB [id number] CARBON DIOXIDE, TOTAL (MMOL/L) IN SER/PLAS 25 21-31 mmol/L LAB [id number] UREA NITROGEN (MG/DL) IN SER/PLAS 9 7-25 mg/dL LAB [id number] CREATININE (MG/DL) IN SER/PLAS 0.57 Low 0.60-1.20 mg/dL LAB [id number] GLUCOSE (MG/DL) IN SER/PLAS 92 70-100 mg/dL LAB [id number] CALCIUM (MG/DL) IN SER/PLAS 7.6 Low 8.6-10.3 mg/dL LAB [id number] ANION GAP IN SER/PLAS 9 7-20 mmol/L LAB [id number] GLOMERULAR FILTRATION RATE ML/MIN/1.73 SQ M.PREDICTED 91.2 >60.0 mL/min/ 1.73m*2 Result Comment: [facility]???s estimated glomerular filtration rate (eGFR) will [...] disproportionately affect any one group of individuals. LAB [id number] UREA NITROGEN/CREA TININE (MASS RATIO) IN SER/PLAS 15.8 NA Performed By: #### [id number] ### # [facility] ([facility]) [address] [place] [address] CBC WITH AUTO DIFFERENTIAL Collected: 07/09/2024 5:04 AM Status: UNK Source: [facility] TYPE CODE TESTS RESULT OUT OF RANGE REFERENCE UNITS LAB [id number] LEUKOCYTES(10*3/ UL) IN BLOOD BY AUTOMATED COUNT 17.11 High 4.00-10.60 10*3/uL LAB [id number] ERYTHROCYTES (10*6/UL) IN BLOOD BY AUTOMATED COUNT 2.74 Low 3.80-5.00 10*6/uL LAB [id number] HEMOGLOBIN (G/DL) IN BLOOD 8.1 Low 12.0-15.0 g/dL LAB [id number] HEMATOCRIT (%) IN BLOOD BY AUTOMATED COUNT 25.4 Low 36.0-48.0 % LAB [id number] ERYTHROCYTE MEAN CORPUSCULAR VOLUME (FL) BY AUTOMATED COUNT 92.7 82.0-98.0 fL LAB [id number] ERYTHROCYTE MEAN CORPUSCULAR HEMOGLOBIN (PG) BY AUTOMATED COUNT 29.6 27.0-33.0 pg LAB [id number] ERYTHROCYTE MEAN CORPUSCULAR HEMOGLOBIN CONCENTRATION (G/DL) BY AUTOMATED 31.9 Low 32.0-35.0 g/dL LAB [id number] ERYTHROCYTE DISTRIBUTION WIDTH (RATIO) BY AUTOMATED COUNT 23.0 High 11.5-15.0 % LAB [id number] PLATELETS (10*3/UL) IN BLOOD AUTOMATED COUNT 370 150-400 10*3/uL LAB 254 NRBC (PER 100 WBCS) BY AUTOMATED COUNT 0.0 0 % Performed By: #### [id number] # ### [facility] ([facility]) [address] [place] [address] MANUAL DIFFERENTIAL Collected: 07/09/2024 5:[address] atus: UNK Source: [facility] TYPE CODE TESTS RESULT OUT OF RANGE REFERENCE UNITS LAB 1767 IMMATURE GRANULOCYTES/100 LEUKOCYTES IN BLOOD BY AUTOMATED COUNT 3.4 High 0.0-1.0 % LAB [id number] NEUTROPHILS (10*3/UL) IN BLOOD BY CALCULATION 11.6 High 1.6-7.6 10*3/uL LAB [id number] LYMPHOCYTES (10*3/UL) IN BLOOD BY CALCULATION 2.77 1.20-4.00 10*3/uL LAB [id number] MONOCYTES (10*3/UL) IN BLOOD BY CALCUATION 1.40 High 0.10-1.00 10*3/uL LAB [id number] EOSINOPHILS (10*3/UL) IN BLOOD BY CALCULATION 0.63 High 0.00-0.50 10*3/uL LAB [id number] BASOPHILS (10*3/UL) IN BLOOD BY CALCULATION 0.09 0.00-0.20 10*3/uL LAB [id number] ANISOCYTOSIS PRESENCE IN BLOOD BY LIGHT MICROSCOPY Marked LAB [id number] POIKILOCYTOSIS (PRESENCE) IN BLOOD BY LIGHT MICROSCOPY Slight LAB [id number] POLYCHROMASIA IN BLOOD BY LIGHT MICROSCOPY Slight LAB [id number] NEUTROPHILS/100 LEUKOCYTES IN BLOOD BY AUTOMATED COUNT 68.0 40.0-72.0 % LAB [id number] LYMPHOCYTES/100 LEUKOCYTES IN BLOOD BY AUTOMATED COUNT 16.2 Low 20.0-45.0 % LAB [id number] MONOCYTES/100 LEUKOCYTES IN BLOOD BY AUTOMATED COUNT 8.2 5.0-12.0 % LAB [id number] EOSINOPHILS/100 LEUKOCYTES IN BLOOD BY AUTOMATED COUNT 3.7 0.0-6.0 % LAB [id number] BASOPHILS/100 LEUKOCYTES IN BLOOD BY AUTOMATED COUNT 0.5 0.0-1.0 % LAB 2631 IMMATURE GRANULOCYTES (10*3/UL) IN BLOOD BY CALCULATION 0.58 High 0.00-0.20 10*3/uL Performed By: #### [id number] # ### [facility] [address] [place] [address] 30 Observed: 07/08/2024 8:35 PM Status: COMPLETED Source: [facility] Problem: Pain - Adult Goal: Verbalizes/displays adequate comfort level or baseline comfort level Outcome: Progressing Flowsheets (Taken 07/08/202441) Verbalizes/displays adequate comfort level or baseline comfort level: Encourage patient to monitor pain and request assistance Assess pain using appropriate pain scale Administer analgesics based on type and severity of pain and evaluate response Implement non-pharmacological measures as appropriate and evaluate response Problem: Safety - Adult Goal: Free from fall injury Outcome: Progressing Flowsheets (Taken 07/08/202441) Free from fall injury: Assess patient frequently for physical needs Identify cognitive and physical deficits and behaviors that affect risk of falls [place] fall precautions as indicated by assessment Educate patient/family on patient safety, including physical limitations Instruct patient to call for assistance with activity based on assessment Modify environment to reduce risk of injury Problem: Discharge Planning Goal: Discharge to home or other facility with appropriate resources Outcome: Progressing Flowsheets (Taken 07/08/202441) Discharge to home or other facility with appropriate resources: Identify barriers to discharge with patient and caregiver Arrange for needed discharge resources and transportation as appropriate Identify discharge learning needs (meds, wound care, etc) Problem: Chronic Conditions and Co-morbidities Goal: Patient's chronic conditions and co-morbidity symptoms are monitored and maintained or improved Outcome: Progressing Flowsheets (Taken 07/08/202441) Care Plan - Patient's Chronic Conditions and Co-Morbidity Symptoms are Monitored and Maintained or Improved: Monitor and assess patient's chronic conditions and comorbid symptoms for stability, deterioration, or improvement Collaborate with multidisciplinary team to address chronic and comorbid conditions and prevent exacerbation or deterioration Update acute care plan with appropriate goals if chronic or comorbid symptoms are exacerbated and prevent overall improvement and discharge Problem: Skin/Tissue Integrity - Adult Goal: Skin integrity remains intact Outcome: Progressing Flowsheets (Taken 07/08/2024745 by Kameron Quinones RN) Skin integrity remains intact: Monitor for areas of redness and/or skin breakdown Problem: Musculoskeletal - Adult Goal: Return mobility to safest level of function Outcome: Progressing Flowsheets (Taken 07/08/202441) Return mobility to safest level of function: Assess patient stability and activity tolerance for standing, transferring and ambulating with or without assistive devices Assist with transfers and ambulation using safe patient handling equipment as needed Obtain physical therapy/occupational therapy consults as needed Apply continuous passive motion per provider or physical therapy orders to increase flexion toward goal Problem: Metabolic/Fluid and Electrolytes - Adult Goal: Electrolytes maintained within normal limits Outcome: Progressing Flowsheets (Taken 07/08/202441) Electrolytes maintained within normal limits: Monitor labs and assess patient for signs and symptoms of electrolyte imbalances Administer electrolyte replacement as ordered Monitor response to electrolyte replacements, including repeat lab results as appropriate Problem: Hematologic - Adult Goal: Maintains hematologic stability Outcome: Progressing Flowsheets (Taken 07/08/202441) Maintains hematologic stability: Assess for signs and symptoms of bleeding or hemorrhage Monitor labs for bleeding or clotting disorders Administer blood products/factors as ordered Problem: Cardiovascular - Adult Goal: Maintains optimal cardiac output and hemodynamic stability Outcome: Progressing Flowsheets (Taken 07/08/202441) Maintains optimal cardiac output and hemodynamic stability: Monitor blood pressure and heart rate Assess for signs of decreased cardiac output Problem: Gastrointestinal - Adult Goal: Maintains or returns to baseline bowel function Outcome: Progressing Flowsheets (Taken 07/08/202441) Maintains or returns to baseline bowel function: Assess bowel function Goal: Maintains adequate nutritional intake Outcome: Progressing Flowsheets (Taken 07/08/202441) Maintains adequate nutritional intake: Monitor percentage of each meal consumed Identify factors contributing to decreased intake, treat as appropriate Problem: Genitourinary - Adult Goal: Absence of urinary retention Outcome: Progressing Flowsheets (Taken 07/08/202441) Absence of urinary retention: Assess patient???s ability to void and empty bladder Monitor intake/output and perform bladder scan as needed Problem: Infection - Adult Goal: Absence of infection at discharge Outcome: Progressing Flowsheets (Taken 07/08/202441) Absence of infection at discharge: Assess and monitor for signs and symptoms of infection Monitor lab/diagnostic results The patient is Moderately Stable - Low risk of patient condition declining or worsening The patient's goals for the shift include comfort/rest The clinical goals for the shift include optimize patient treatment options/goals PROGRESS Observed: 07/08/2024 2:47 PM Status: COMPLETED Source: [facility] Received message from PT, pt has improved and can go home with [facility] and family assist. Pt is having a EGD and colonoscopy today. Await reply from Jabari Gomez [facility] for acceptance. If pt wants [facility] Ziggy Woods needs to know cancer treatment plan before acceptance. PROGRESS Observed: 07/08/2024 2:45 PM Status: COMPLETED Source: [facility] Occupational Therapy Occupational Therapy Evaluation Patient Name: Jenna Kumar : 1945 Today's Date: 07/08/2024 Start Time: 1445 Stop Time: 1513 Time Calculation (min): 28 min OT Therapeutic Procedures Time Entry Self Care/Home Management (ADLs) Time Entry: 28 General Subjective: Pt pleasant, reports her back itches and agreeable to upper body bathing and toileting this date. Patient Active Problem List Diagnosis GI bleed Posthemorrhagic anemia Jaundice Primary hypertension Hypokalemia Liver mass Obstructive jaundice (CMS/HCC) Past Medical History: Diagnosis Date Anxiety Bundle branch block Heart disease Hypertension History reviewed. No pertinent surgical history. Precautions Pain Pain Assessment Pain Assessment: No/denies pain Cognition Cognition Overall Cognitive Status: Within Functional Limits Arousal/Alertness: Appropriate responses to stimuli Orientation Level: Oriented X4 Following Commands: Follows one step commands with increased time Safety Judgment: Good awareness of safety precautions Awareness of Errors: Assistance required to correct errors made Static Sitting Balance Static Sitting Balance Static Sitting-Balance Support: Right upper extremity supported, Left upper extremity supported, Feet supported Static Sitting-Level of Assistance: Distant supervision Dynamic Sitting Balance Dynamic Sitting Balance Dynamic Sitting-Balance Support: No upper extremity supported, Feet supported Dynamic Sitting-Balance: Lateral lean, Forward lean, Reaching across midline, Reaching for objects Dynamic Sitting Balance-Level of Assistance: Close supervision Dynamic Sitting-Comments: on toilet, EOB, seated in chair Static Standing Balance Static Standing Balance Static Standing-Balance Support: Right upper extremity supported, Left upper extremity supported, With device Static Standing-Level of Assistance: Close supervision Dynamic Standing Balance Dynamic Standing Balance Dynamic Standing-Balance Support: Unilateral upper extremity supported, With device Dynamic Standing-Balance: Forward lean, Reaching for objects, Reaching across midline Dynamic Standing Balance-Level of Assistance: Contact guard Dynamic Standing-Comments: CGA for controlled descent ADL ADL Grooming Deficit: Setup, Wash/dry hands, Supervision/safety, Increased time to complete, Wash/dry face, Brushing hair Bathing Assistance: Stand by Bathing Deficit: Setup, Verbal cueing (UBB only) UE Dressing Assistance: Stand by UE Dressing Deficit: Setup, Fasteners LE Dressing Assistance: Maximal LE Dressing Deficit: Pull up over hips, Thread RLE into underwear, Thread LLE into underwear Toileting Assistance with Device: Moderate Toileting Deficit: Setup, Clothing management up, Clothing management down Bed Mobility Bed Mobility Bed Mobility: Yes Bed Mobility 1 Bed Mobility From 1: Short sit Bed Mobility Type 1: To Bed Mobility to 1: Supine Level of Assistance 1: Contact guard Bed Mobility Comments 1: CGA for LLE managment Transfers Transfers Ambulation comments: 18 feet x2 Transfer: Yes Transfer 1 Transfer From 1: Sit, Chair with arms Transfer Type 1: To Transfer to 1: Stand, Toilet Technique 1: Sit to stand, Stand to sit Transfer Device 1: rolling walker Transfer Level of Assistance 1: Contact guard Trials/Comments 1: CGA for controlled descent Transfers 2 Transfer From 2: Sit, Toilet Transfer Type 2: To Transfer to 2: Stand, Bed Technique 2: Sit to stand, Stand to sit Transfer Device 2: rolling walker Transfer Level of Assistance 2: Contact guard Trials/Comments 2: CGA fro controlled descent Outcome Assessments AM-PAC 6 Clicks Putting on and taking off regular lower body clothing?: A Lot (Mod/Max Assist) Bathing(Including washing,rinsing,drying)?: A Lot (Mod/Max Assist) Toileting, which includes using the toilet,bedpan,or urinal?: A Lot (Mod/Max Assist) Putting on and taking off regular upper body clothing?: A Little (Min Assist/Contact Guard/Supervision) Taking care of personal grooming such as brushing teeth?: A Little (Min Assist/Contact Guard/Supervision) Eating meals?: None (Independent) Total Score OT [facility]: 16 Assessment/Plan OT Assessment OT Impairments: Decreased ADL status, Decreased endurance, Decreased safe judgment during ADL, Decreased functional mobility OT Assessment/FISHERIES DIRECTOR Summary: Pt would benefit from continued skilled therapy to promote increased activity tolerance, safety awareness. Evaluation/Treatment Tolerance: Patient tolerated treatment well OT Education/Comments: Bed mob, transfer techniques, safety awareness Plan Level of assist: 1 assist Treatment Interventions: ADL retraining, Endurance training, Patient/family training OT Plan: Skilled OT OT Frequency: 5 times per week OT Discharge Recommendations: alf facility placement OT - Discharge Recommendations Placed: Yes OT Goals Multi-Disciplinary Problems (from Occupational Therapy) Active Problems Problem: Balance Start Date: 07/05/24 Goal Start Date Expected End Date End Date LTG - Patient will demo Mod I standing and sitting balance to allow for completion of daily activities 07/05/24 07/18/24 -- Problem: Bathing Start Date: 07/05/24 Goal Start Date Expected End Date End Date LTG - Patient will utilize adaptive techniques to bathe body with modified independent 07/05/24 07/18/24 -- Problem: Dressings Lower Extremities Start Date: 07/05/24 Goal Start Date Expected End Date End Date LTG - Patient will utilize adaptive techniques/equipment to dress lower body with modified independent 07/05/24 07/18/24 -- Problem: Dressing Upper Extremities Start Date: 07/05/24 Goal Start Date Expected End Date End Date STG - Patient will ambulate to closet to retrieve clothing with modified independent 07/05/24 07/18/24 -- Problem: Grooming Start Date: 07/05/24 Goal Start Date Expected End Date End Date LTG - Patient will utilize adaptive techniques/equipment to complete daily grooming activities with modified independent 07/05/24 07/18/24 -- Problem: Toileting Start Date: 07/05/24 Goal Start Date Expected End Date End Date LTG - Patient will utilize adaptive techniques/equipment to complete daily toileting tasks with modified independent 07/05/24 07/18/24 -- Problem: Transfers Start Date: 07/05/24 Goal Start Date Expected End Date End Date LTG - Patient will transfer from bed<>chair/toilet with modified independent using LRAD 07/05/24 07/18/24 -- Problem: OT Misc Start Date: 07/05/24 Goal Start Date Expected End Date End Date Pt will increase activity tolerance to engage in at least 20-30 minutes of dynamic seated/standing activity with no more than min rest breaks PRN. 07/05/24 07/18/24 -- Goal Start Date Expected End Date End Date Pt will increase BUE strength at least 1/2 grade for increased I in transfers, mobility, and ADLs. 07/05/24 07/18/24 -- PROGRESS Observed: 07/08/2024 2:19 PM Status: COMPLETED Source: [facility] Attestation signed by Ovi Daigle MD at 07/08/2024 2:40 PM By using the attestations below, the signing clinician agrees that I have read and verify that the documentation has been personally reviewed by me and ensure that the documentation accurately reflects the encounter. GC: I personally saw this patient on the day of the encounter, performed the gan portion(s) of the service and participated in the management and confirm the resident's documentation. Please note there may be an additional personal documentation from me. Additional Comments: Gram negative bacteremia, developed rash while on ceftriaxone, switched to meropenem and rash progressed. DC meropenem Keep levaquin and flagyl , QTC is 430 - advanced age but we have not much alterative (today is day 5 of treatment) consider allergy consult Ovi Daigle MD Infectious diseases Infectious Diseases - Inpatient daily Progress Note - Patient name: Jenna Kumar Patient Today's Date and Time: 07/08/2024, 2:19 PM Admission Date: 07/01/2024 Assessment/Plan Impression: Gram-negative bacteremia with blood cultures growing E. coli with no resistant genes in the setting of recent biliary procedure On 06/28 the patient underwent balloon dilatation of the CBD with biopsies followed by 2 biliary stents placement into the left intrahepatic ducts in addition to sphincterectomy Acute leukocytosis, likely due to infection versus reactive Multiple masses concerning for malignancy including left hepatic mass, mass within the common bile duct, rectal mass Recommendations: Continue antibiotic therapy with levofloxacin as well as metronidazole Follow-up on the repeat blood cultures from 07/06 Subjective Interval history: The patient was seen and examined at bedside this morning. She reports abdominal pain but otherwise feels well. She is scheduled to have a colonoscopy done in a bit today. Objective Physical Examination: BP 104/59 (BP Location: Right arm, Patient Position: Lying) Pulse 80 Temp 36.4 ???C (97.5 ???F) (Temporal) Resp 19 Ht 1.626 m (5' 4 ) Wt 70.3 kg (154 lb 15.7 oz) SpO2 93% BMI 26.60 kg/m??? Temperature Range: Temp: 36.4 ???C (97.5 ???F) Temp Av.4 ???C (97.6 ???F) Min: 36.3 ???C (97.3 ???F) Max: 36.7 ???C (98.1 ???F) Physical Exam Constitutional: General: She is not in acute distress. Appearance: Normal appearance. HENT: Head: Normocephalic and atraumatic. Nose: Nose normal. Mouth/Throat: Mouth: Mucous membranes are moist. Eyes: General: No scleral icterus. Right eye: No discharge. Left eye: No discharge. Conjunctiva/sclera: Conjunctivae normal. Pupils: Pupils are equal, round, and reactive to light. Cardiovascular: Rate and Rhythm: Normal rate and regular rhythm. Pulses: Normal pulses. Heart sounds: Normal heart sounds. No murmur heard. No friction rub. No gallop. Pulmonary: Effort: Pulmonary effort is normal. No respiratory distress. Breath sounds: Normal breath sounds. No stridor. No wheezing, rhonchi or rales. Abdominal: General: Abdomen is flat. Bowel sounds are normal. There is no distension. Palpations: Abdomen is soft. Tenderness: There is abdominal tenderness (Scattered most pronounced in the right upper quadrant). There is guarding (Right upper quadrant and epigastric guarding suggestive of Cason sign). There is no rebound. Musculoskeletal: General: Normal range of motion. Cervical back: Normal range of motion. Right lower leg: No edema. Left lower leg: No edema. Skin: General: Skin is warm and dry. Coloration: Skin is jaundiced and pale. Neurological: General: No focal deficit present. Mental Status: She is alert and oriented to person, place, and time. Psychiatric: Mood and Affect: Mood normal. Behavior: Behavior normal. Thought Content: Thought content normal. Laboratory data: I have independently reviewed the following labs: Results from last 7 days Lab Units 07/08/24 0706 07/07/24 0337 07/06/24 0421 07/05/24 0359 07/04/24 0635 07/03/24 0713 07/02/24 2104 07/02/24 1417 WBC AUTO 10*3/uL 17.81* 21.62* 25.48* < > 20.22* 19.30* -- 19.51* HEMOGLOBIN g/dL 8.4* 8.3* 8.2* < > 8.9* 8.9* 8.9* < > 9.2* HEMATOCRIT % 26.5* 25.3* 25.7* < > 27.7* 27.2* 27.3* < > 27.8* MCV fL 92.3 90.0 90.5 < > 87.9 84.7 -- 84.0 PLATELETS AUTO 10*3/uL 342 282 258 < > 281 266 -- 262 NEUTROS ABS 10*3/uL -- -- -- -- 16.8* 16.0* -- 16.8* EOS ABS MAN 10*3/uL -- -- -- -- 0.95* 0.14 -- 0.51* BASOS ABS MAN 10*3/uL -- -- -- -- 0.14 0.00 -- 0.00 < > = values in this interval not displayed. Results from last 7 days Lab Units 07/08/24 0706 07/07/24 0337 07/06/24 0421 POTASSIUM mmol/L 3.5 3.6 3.6 CHLORIDE mmol/L 102 102 103 CO2 mmol/L 28 27 24 BUN mg/dL 8 11 15 CREATININE mg/dL 0.60 0.63 0.78 GLUCOSE mg/dL 92 91 105* CALCIUM mg/dL 7.7* 7.8* 7.6* ALK PHOS U/L 517* 505* 555* ALT U/L 68* 83* 105* AST U/L 56* 62* 83* Results from last 7 days Lab Units 07/06/24 1255 CRP mg/L 121.9* Results from last 7 days Lab Units 07/02/24 0037 GLUCOSE U MG/DL mg/dL Normal UROBILINOGEN URINE mg/dL 2.0* BILIRUBIN U Small* WBC UR HPF /HPF 6-10* No lab exists for component: TOXIGENICC Imaging Studies: I have reviewed myself the following imaging studies performed in the past 3 days: No X-ray results found for the past [address] results found for the past 3 days No MRI results found for the past 3 days Cultures: Results for orders placed or performed during the hospital encounter of 07/01/24 Blood culture Specimen: Blood, Venous Result Value Ref Range Blood Culture No growth at 2 days Blood culture Specimen: Blood, Venous Result Value Ref Range Blood Culture No growth at 2 days Blood culture, peripheral #2 Specimen: Blood, Venous Result Value Ref Range Blood Culture No growth at 4 days Blood culture, peripheral #1 Specimen: Blood, Venous Result Value Ref Range Blood Culture Escherichia coli (A) Gram Stain Result Aerobic Bottle Yields Gram negative bacilli (A) Susceptibility Escherichia coli - STEPHANIE Amoxicillin + Clavulanate <=4/2 Susceptible ug/ml Ampicillin <=4 Susceptible ug/ml Ampicillin + Sulbactam 2/1 Susceptible ug/ml Cefazolin (Non-Urine) Susceptible Ceftriaxone <=1 Susceptible ug/ml Ciprofloxacin <=0.25 Susceptible ug/ml ESBL Screen Negative Negative ug/ml Gentamicin <=2 Susceptible ug/ml Tobramycin <=2 Susceptible ug/ml Trimethoprim + Sulfamethoxazole <=0.5/9.5 Susceptible ug/ml Medications: levoFLOXacin, 750 mg, oral, Daily metoprolol tartrate, 12.5 mg, oral, BID metroNIDAZOLE, 500 mg, oral, BID pantoprazole, 40 mg, oral, BID AC polyethylene glycol, 238 g, oral, Once This progress note was completed using a voice plate developer system. Every effort was made to ensure accuracy; however, inadvertent computerized plate developer errors may be present. Thank you for allowing us to participate in the care of this patient. Kavon Luciano MD [facility] Infectious Diseases Please contact us via [employer] during business hours. If no response in 15 min, call / page through the paradi operator PROGRESS Observed: 07/08/2024 2:10 PM Status: COMPLETED Source: [facility] Hospital Medicine Daily Progress Note - 07/08/2024 2:10 PM; Room: [address] [place] [address] Admission: 07/01/2024 9:06 PM; Length of stay: 7 days THE HOSPITALIST TEAM PREFERS TO USE [employer] FOR NON-URGENT COMMUNICATION 7AM-7PM. IF I DO NOT RESPOND WITHIN 20 MINUTES OR URGENT MATTERS, PLEASE CALL THROUGH THE SCREEN STRETCHER. FROM 7PM-7AM, PLEASE PAGE [phone](COVR). Code Status: Full Code Barriers to Discharge: colonscopy today, IV antibiotics for cholangitis Expected Discharge Date: TBD Discharge Destination: home Overview Patient is seen for evaluation and management of melena, weakness. Jenna Kumar is an 79 y.o. female transferred from [facility] to [facility] ER when she presented to [place] for recurrent GI bleed increased fatigue weakness and found to have hemoglobin around 7 and blood pressure was low patient was admitted at [facility] on 06/28/2024 with diagnosis of jaundice pruritus [...] symptoms pruritus feeling weak fatigue tired. EGD performed with evidence of small duodenal ulcer 2/ biliary stent, stent was repositioned. Patient is [...] on 07/08 for biopsies of rectal mass. Subjective Patient assessed at bedside. She reports feeling good today, just a little groggy after colonoscopy. She does have rash on her abdomen and back, she denies itching. Physical Exam Visit Vitals BP 104/59 (BP Location: Right arm, Patient Position: Lying) Pulse 80 Temp 36.4 ???C (97.5 ???F) (Temporal) Resp 19 Intake/Output Summary (Last 24 hours) at 07/08/2024 1410 Last data filed at 07/08/2024 1209 Gross per 24 hour Intake 400 ml Output -- Net 400 ml Physical Exam Vitals reviewed. Constitutional: General: She is awake. She is not in acute distress. Appearance: She is not ill-appearing. Cardiovascular: Rate and Rhythm: Normal rate and regular rhythm. Pulmonary: Effort: Pulmonary effort is normal. No tachypnea, accessory muscle usage or respiratory distress. Abdominal: General: There is no distension. Palpations: Abdomen is soft. Tenderness: There is no abdominal tenderness. Skin: Findings: Rash present. Neurological: Mental Status: She is alert and oriented to person, place, and time. Mental status is at baseline. Psychiatric: Attention and Perception: Attention normal. Mood and Affect: Mood normal. Speech: Speech normal. Behavior: Behavior is cooperative. Estimated body mass index is 26.6 kg/m??? as calculated from the following: Height as of this encounter: 1.626 m (5' 4 ). Weight as of this encounter: 70.3 kg (154 lb 15.7 oz). Active Inpatient Problems Principal Problem: GI bleed Active Problems: Posthemorrhagic anemia Primary hypertension Hypokalemia Liver mass Obstructive jaundice (CMS/HCC) Assessment and Plan Gram-negative bacteremia with recent biliary stent placement, growing E. coli, presently Levaquin and Flagyl,, Appreciate infectious disease expertise, plan for repeat culture for bacteremia clearance, continue Levaquin and flagyl Urticaria Meropenem stopped by ID Benedryl 25mg ordered Acute blood loss anemia secondary to duodenal ulcer, stable Received 2 PRBC transfusions. EGD performed on 07/02 showed a small duodenal ulcer with active oozing, likely caused by direct pressure from biliary stent on duodenal wall. The stent has been repositioned. Hemostasis achieved. 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 Balloon dilatation of CBD followed by brushing and biopsies were performed, 2 biliary stents placed into left intrahepatic ducts after sphincterotomy Biopsy results pending. 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 Continue Lopressor at a lower dose of 12.5 mg twice a day, hold for SBP <110 or HR <60 Hypokalemia, resolved Supplementation ordered #Abdominal wall rash with some itching, could be drug related?, Better now, Will monitor closely, add hydroxyzine as needed, discussed with the nurse at bedside to monitor QT intervals closely while taking Levaquin Case will be discussed with attending physician Nutrition Screen: Malnutrition Attestation: No dietitian assessment is available at this time. VTE Prophylaxis: Will start AFTER PROCEDURE Scheduled Meds levoFLOXacin, 750 mg, oral, Daily metoprolol tartrate, 12.5 mg, oral, BID metroNIDAZOLE, 500 mg, oral, BID pantoprazole, 40 mg, oral, BID AC polyethylene glycol, 238 g, oral, Once Pertinent Investigations Hematology: Results from last 7 days Lab Units 07/08/24 0706 07/07/24 1126 07/07/24 0337 07/06/24 1255 07/02/24 2104 07/02/24 1417 CRP mg/L -- -- -- 121.9* -- -- WBC AUTO 10*3/uL 17.81* -- 21.62* -- < > 19.51* HEMOGLOBIN g/dL 8.4* -- 8.3* -- < > 9.2* HEMATOCRIT % 26.5* -- 25.3* -- < > 27.8* MCV fL 92.3 -- 90.0 -- < > 84.0 PLATELETS AUTO 10*3/uL 342 -- 282 -- < > 262 INR -- 1.03 -- -- -- 1.28* < > = values in this interval not displayed. Chemistry: Results from last 7 days Lab Units 07/08/24 0706 07/07/24 0337 07/06/24 0421 07/05/24 0359 07/04/24 0635 07/03/24 0923 SODIUM mmol/L 133* 135* 132* < > 132* 133* POTASSIUM mmol/L 3.5 3.6 3.6 < > 4.0 3.2* CHLORIDE mmol/L 102 102 103 < > 104 105 CO2 mmol/L 28 27 24 < > 24 21 BUN mg/dL 8 11 15 < > 16 20 CREATININE mg/dL 0.60 0.63 0.78 < > 0.76 0.72 GLUCOSE mg/dL 92 91 105* < > 106* 128* MAGNESIUM mg/dL -- -- -- -- 1.7* 1.7* CALCIUM mg/dL 7.7* 7.8* 7.6* < > 7.7* 7.6* < > = values in this interval not displayed. Results from last 7 days Lab Units 07/08/24 0706 07/07/24 0337 07/06/24 0421 07/05/24 0359 07/04/24 0635 07/03/24 0923 07/02/24 0553 07/01/24 2159 AST U/L 56* 62* 83* 128* 145* < > 173* 192* ALT U/L 68* 83* 105* 130* 154* < > 178* 202* ALK PHOS U/L 517* 505* 555* 649* 800* < > 613* 682* BILIRUBIN TOTAL mg/dL 6.5* 7.7* 8.7* 8.7* 8.8* < > 10.5* 10.7* BILIRUBIN DIRECT mg/dL 3.9* -- -- 5.2* 5.1* < > -- 6.1* LIPASE U/L -- -- -- -- -- -- 56 95* < > = values in this interval not displayed. Historical Values: (Includes values prior to this admission) No results found for: PREALBUMIN , TSH , T3FREE , FREET4 , CORTISOL , FEV1 , MCH7DMG , DLCO , RVSP , HDL , LDL Lab Results Component Value Date [id number] 1,533 (H) 07/04/2024 IRON 84 07/04/2024 TIBC 188 (L) 07/04/2024 CEA 2.2 07/04/2024 CA199 <2 07/04/2024 Imaging EGD Table formatting from the original result was not included. Esophagogastroduodenoscopy (EGD) Procedure Note Procedure: EGD with endoscopic management of bleeding ulcer. Indications: 79 y.o. female who was admitted with melena. The patient was recently seen for the history of obstructive jaundice. She had an ERCP with endoscopic ultrasound, fine-needle aspiration and biliary sphincterotomy with biliary stent placement on June 28, 2024. LFTs have been slowly improving. She also had a rectal mass that was biopsied. The patient is scheduled to have an EGD to assess a potential source for melena. Sedation: MAC Medications: EPINEPHrine (Adrenalin) 1 mg/10mL injection 10 mL (Totals for administrations occurring from 1737 to 1826 on 07/02/24) Attending Physician: Bradley Díaz MD Procedure Details: Informed consent was obtained for the procedure, including sedation. Risks of infection, perforation, hemorrhage, adverse drug reaction, and aspiration were discussed. The patient was placed in the left lateral decubitus position. The patient was monitored continuously with ECG tracing, pulse oximetry, blood pressure monitoring, and direct observation. The gastroscope was inserted into the mouth and advanced under direct vision to second portion of the duodenum. A careful inspection was made as the gastroscope was withdrawn, including a retroflexed view of the proximal stomach; findings and interventions are described below. Appropriate photodocumentation was obtained. Findings: The examination of the esophagus and the stomach were unremarkable. No blood was identified within the esophagus or the stomach. The examination of the duodenal bulb was unremarkable. The examination of the second part of the duodenum revealed to plastic biliary stent protruding through the papilla into the duodenal lumen. One of the stent was abutting the opposite duodenal wall causing small ulceration that was oozing small amount of blood. The stent position was readjusted using rat-tooth forceps. 3 hemoclips were deployed at the site of bleeding followed by injection of 10 mL of 1 in 10,000 epinephrine. Complete hemostasis was achieved. Specimens: No specimens collected Complications: None Estimated blood loss: Minimal Disposition: Home Condition: stable Impression: Small duodenal ulcer oozing blood caused by a direct pressure of the biliary stent on the opposite wall of the second part of the duodenum. The position of the stent was adjusted away from the duodenum wound and the site of the bleeding was clipped with. Hemoclips and injected with epinephrine. Complete hemostasis was achieved. The site of the sphincterotomy was unremarkable and bile was noted draining from the common bile duct as as well as from the biliary stents. Recommendations: Start clear liquid diet. Start IV PPI. Follow-up H&H Awaiting histopathology results from previous ERCP/EUS and flexible sigmoidoscopy with biopsies. Further plan depends upon the histopathology results. Attending Attestation: I performed the procedure. Discharge Planning Expected Discharge Disposition: [place] [facility] [place] Discharge Recommendations: alf facility placement OT Discharge Recommendations: alf facility placement (Potential for home if activity tolerance improves) Signed Stephanie Marti [facility] 07/08/2024 2:10 PM ANES Observed: 07/08/2024 12:31 PM Status: COMPLETED Source: [facility] Patient: Jenna Kumar Procedure Summary Date: 07/08/24 Room / Location: [facility] Endoscopy Anesthesia Start: 1126 Anesthesia Stop: 1218 Procedure: DIAGNOSTIC COLONOSCOPY Diagnosis: Rectal mass Scheduled Providers: Reece Hernandez MD; Pb Junior CRNA; Bradley Díaz MD Responsible Provider: Reece Hernandez MD Anesthesia Type: general ASA Status: 3 Anesthesia Type: general Vitals Value Taken Time BP 74/41 07/08/24 1220 Temp 36.4 ???C (97.5 ???F) 07/08/24 1220 Pulse 75 07/08/24 1220 Resp 18 07/08/24 1220 SpO2 100 % 07/08/24 1220 Anesthesia Post Evaluation Patient location during evaluation: PACU Patient participation: complete - patient participated Level of consciousness: awake Pain score: 1 Pain management: adequate Airway patency: patent Cardiovascular status: acceptable Respiratory status: acceptable Patient is hemodynamically stable and is able to be discharged from PACU per anesthesia protocol. No notable events documented. [id number] Observed: 07/08/2024 12:19 PM Status: COMPLETED Source: [facility] Patient: Jenna Kumar Procedure Summary Date: 07/08/24 Room / Location: [facility] Endoscopy Anesthesia Start: 1126 Anesthesia Stop: Procedure: DIAGNOSTIC COLONOSCOPY Diagnosis: Rectal mass Scheduled Providers: Reece Hernandez MD; Pb Junior CRNA; Bradley Díaz MD Responsible Provider: Reece Hernandez MD Anesthesia Type: general ASA Status: 3 Anesthesia Post [facility] Oxygen Flow (L/min): 8 Patient Monitor: direct observation Transport: uneventful Patient condition is: stable NURSNOTE Observed: 07/08/2024 12:09 PM Status: COMPLETED Source: [facility] All positioning devices jay patrick pt remains supine. HISTOLOGY - TISSUE EXAM Collected: 06/16 12:03 PM Status: UNK Source: [facility] TYPE CODE TESTS RESULT OUT OF RANGE REFERENCE UNITS PATHOLOGY 1499 LAB AP CASE REPORT Result Comment: Surgical Pat hology Case: [id number] Authorizing Provider: Bradley Díaz MD Collected: 07/08/2024 1203 Ordering Location: [facility] 4AB Urology Received: 07/08/2024 1453 Pathologist: Kady Ontiveros MD Specimens: A) - Rectum, RECTUM MASS RULE OUT MALIGNANCY B) - Rectum, RECTAL MASS BIOPSY #2 PATHOLOGY 34 LAB AP REPORT FINAL DIAGNOSIS NARRATIVE Result Comment: A. 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 Colon, rectal mass #2, biopsy: - Tubular adenoma OLOGY 29 LAB AP CLINICAL INFORMATION Order Diagnoses Result Comment: W19.XXXA - F all, initial encounter [ICD-10-CM] R17 - Jaundice [ICD-10-CM] E80.6 - Hyperbilirubinemia [ICD-10-CM] K92.2 - Gastrointestinal hemorrhage, unspecified gastrointestinal hemorrhage type [ICD-10-CM] R79.89 - Abnormal LFTs [ICD-10-CM] K85.90 - Acute pancreatitis, unspecified complication status, unspecified pancreatitis type [ICD-10-CM] K92.2 - GI bleed [ICD-10-CM] I10 - Primary hypertension [ICD-10-CM] K29.81 - Gastrointestinal hemorrhage associated with duodenitis [ICD-10-CM] K62.89 - Rectal mass [ICD-10-CM] PATHOLOGY 35 LAB AP DIAGNOSIS COMMENT Case reviewed at consensus conference with agreement of the diagnosis. PATHOLOGY [id number] LAB AP GROSS DESCRIPTION A. Rectum. Result Comment: Received in formalin labeled Jenna Kumar, RECTUM MASS RULE OUT MALIGNANCY multiple castillo-brown mucosal tissue fragments measuring 4.0 x 0.9 x 0.5 cm in aggregate. The specimen is submitted entirely in one cassette. The smaller fragments may not survive tissue processing. Mira Campbell, PGY-1B. Rectum. Received in formalin labeled Camilor Mick Covlou, RECTAL MASS BIOPSY #2 is 1 castillo-brown mucosal tissue fragment measuring 0.5 x 0.4 x 0.4 cm. The specimen is submitted entirely in one cassette. Mira Campbell, PGY-1 PATHOLOGY 32 LAB AP MICROSCOPIC DESCRIPTION Microscopic examination performed. Performed By: #### [id number] # ### [facility] ([facility]) [address] Observed: 07/08/2024 11:21 AM Status: COMPLETED Source: [facility] H&P reviewed. The patient wa s examined and there are no changes to the H&P. The patient had an ERCP with endoscopic ultrasound for obstructive jaundice, fine-needle aspiration and biliary sphincterotomy with biliary stent placement June 28, 2024. Pathology revealed malignancy. LFTs have been slowly improving. She had a flexible sigmoidoscopy that revealed rectal mass that was biopsied and revealed the adenoma. Plan for colonoscopy today to examine the colon and to rebiopsy the rectal mass PROGRESS Observed: 07/08/2024 10:54 AM Status: COMPLETED Source: [facility] Physical Therapy Cancellatio n Patient unable to be seen for therapy due to: [] Cancel by RN or physician due to: [] Hemodialysis [] Critical Lab Value Level [] Blood transfusion in progress [] Acute or unstable cardiovascular status _MAP < 55 or more than >115 _HR < 40 or > 130 [] Acute or unstable pulmonary status -FiO2 > 60% _RR < 5 or >40 _O2 sats < 85% [] Strict Bedrest [x] Off Unit - procedure Patient currently off floor for colonoscopy [x] Off Unit for testing [] Pending imaging to R/O fracture [] Refusal by Patient [] Other [] PT being discontinued at this time. Patient independent. No further needs. [] PT being discontinued at this time as the patient has been transferred to hospice care. No further needs. Will follow and initiate session Sharri Valadez PT, MPT [facility] 30 Observed: 07/08/2024 10:24 AM Status: COMPLETED Source: [facility] Daily Case Management Update Multidisciplinary rounds have been completed. Barriers to Discharge: 07/08 Colonoscopy today for further eval of rectal mass. Awaiting GI and ID clearance. Bcx positive for Ecoli, continue Levaquin and flagyl. PT/OT=SNF; SW following. Referral sent to Ziggy at [facility]. Jabari Gomez [facility] can accept. Diet: Dietary Orders (From admission, onward) Start Ordered 07/08/24 0001 Diet NPO Diet effective midnight Comments: Sips with medications Question: Reason for NPO: Answer: Operation/Procedure 07/07/24 1054 07/04/24 1623 Special Kitchen Request Once Comments: X2 grapes x2 V8 juice 07/04/24 1623 07/02/24 1847 Special Kitchen Request Once Comments: Fruit cup, fresh fruit, auto fill remainder of tray 07/02/24 184 Physician Expected Discharge Date: 07/08/2024 Discharge Delays: PT Six Click Score: 17 OT Six Click Score: 16 PT Recommendations: alf facility placement OT Recommendations: alf facility placement (Potential for home if activity tolerance improves) New Consults: Consult Orders (From admission, onward) Start Ordered 07/01/242139 Inpatient consult to Hospitalist Once Specialty: Internal Medicine Provider: (Not yet assigned) Question Answer Comment Consulting Group HOSPITALIST (ADMIT/FLOAT) Reason for Consult? GI bleed Level of Consultation Consultation and Management 07/01/24213907/01/242135 Inpatient consult to Gastroenterology Once Specialty: Gastroenterology Provider: (Not yet assigned) Question Answer Comment Consulting Group GASTROENTEROLOGY TEAM Reason for Consult? GI bleed Level of Consultation Consultation and Management 07/01/242134 Therapy Orders (From admission, onward) Start Ordered 07/05/24 0920 OT eval and treat Until therapy completed Question: Reason for OT? Answer: eval and tx 07/05/24 0919 07/04/24 1023 PT eval and treat Until therapy completed Question: Reason for PT? Answer: pt says she is weak and cant be dc 07/04/24 1022 ANES Observed: 07/08/2024 9:59 AM Status: COMPLETED Source: [facility] Patient: Jenna Kumar Procedure Information Date/Time: 06/28/24 1400 Scheduled providers: Avelina Cartagena MD; IVIS Reed; Bradley Díaz MD Procedures: EUS (UPPER) W/ EGD ENDOSCOPIC RETROGRADE CHOLANGIOPANCREATOGRAPHY FLEXIBLE SIGMOIDOSCOPY Location: [facility] Relevant Problems Anesthesia (within normal limits) Cardio > 4 METs prior to current illness. Has been seen by cardiology 5 years ago for palpitations. Found to have bundle branch block. (+) Primary hypertension Endo Non diabetic GI Obstructive jaundice. /Renal (within normal limits) Neuro/Psych (within normal limits) Pulmonary (within normal limits) Clinical information reviewed: Tobacco Allergies Meds Problems Med Hx Surg Hx OB Status Fam Hx Soc Hx Physical Exam Airway Mallampati: II TM distance: >3 FB Neck ROM: full Cardiovascular - normal exam Dental Comments: Lower partial denture, upper front teeth have veneers, a few capped teeth, unsure which. Pulmonary - normal exam Abdominal Anesthesia Plan ASA 3 general The patient is not a current smoker. Patient was not previously instructed to abstain from smoking on day of procedure. Patient did not smoke on day of procedure. intravenous induction Anesthetic plan and risks discussed with patient. Plan discussed with CAA. Additional Equipment Requests PROGRESS Observed: 07/08/2024 8:55 AM Status: COMPLETED Source: [facility] Occupational Therapy Name: Jenna Kumar Date of : 1945 Today's Date: 07/08/24 Pt is unable to be seen for therapy at this time secondary to patient off the floor at this time . Will check back and complete therapy session as appropriate. Check No Charge Time attempted: 0950A HEPATIC FUNCTION PANEL Collected: 07/08/2024 7:06 AM Status: UNK Source: [facility] TYPE CODE TESTS RESULT OUT OF RANGE REFERENCE UNITS LAB [id number] BILIRUBIN TOTAL (MG/DL) IN SER/PLAS 6.5 High 0.3-1.0 mg/dL LAB [id number] BILIRUBIN DIRECT (MG/DL) IN SER/PLAS 3.9 High 0-0.2 mg/dL LAB [id number] ALKALINE PHOSPHA TASE (U/L) IN SER/PLAS 517 High 34-104 U/L LAB [id number] ASPARTATE AMINOTRANSFERASE (SGOT) (U/L) IN SER/PLAS 56 High 13-39 U/L LAB [id number] ALANINE AMINOTRANSFERASE (SGPT) (U/L) IN SER/PLAS 68 High 7-52 U/L LAB [id number] PROTEIN (G/DL) I N SER/PLAS 4.2 Low 6.0-8.3 g/dL LAB [id number] ALBUMIN (G/DL) I N SER/PLAS 2.1 Low 3.5-5.7 g/dL Performed By: #### [id number] ### # [facility] ([facility]) [address] [place] [address] CBC Collected: 07/08/2024 7:06 AM Status: UN K Source: [facility] TYPE CODE TESTS RESULT OUT OF RANGE REFERENCE UNITS LAB [id number] LEUKOCYTES(10*3/ U L) IN BLOOD BY AUTOMATED COUNT 17.81 High 4.00-10.60 10*3/uL LAB [id number] ERYTHROCYTES (10*6/UL) IN BLOOD BY AUTOMATED COUNT 2.87 Low 3.80-5.00 10*6/uL LAB [id number] HEMOGLOBIN (G/DL ) IN BLOOD 8.4 Low 12.0-15.0 g/dL LAB [id number] HEMATOCRIT (%) I N BLOOD BY AUTOMATED COUNT 26.5 Low 36.0-48.0 % LAB [id number] ERYTHROCYTE MEAN CORPUSCULAR VOLUME (FL) BY AUTOMATED COUNT 92.3 82.0-98.0 fL LAB [id number] ERYTHROCYTE MEAN CORPUSCULAR HEMOGLOBIN (PG) BY AUTOMATED COUNT 29.3 27.0-33.0 pg LAB [id number] ERYTHROCYTE MEAN CORPUSCULAR HEMOGLOBIN CONCENTRATION (G/DL) BY AUTOMATED 31.7 Low 32.0-35.0 g/dL LAB [id number] ERYTHROCYTE DISTRIBUTION WIDTH (RATIO) BY AUTOMATED COUNT 23.3 High 11.5-15.0 % LAB 2696073 PLATELETS (10*3/UL) IN BLOOD AUTOMATED COUNT 342 150-400 10*3/uL Performed By: #### [id number] ## ## [facility] ([facility]) [address] [place] [address] BASIC METABOLIC PANEL Collected: 2024 7:06 AM Status: UNK Source: [facility] TYPE CODE TESTS RESULT OUT OF RANGE REFERENCE UNITS LAB 9004942 SODIUM (MMOL/L) IN SER/PLAS 133 Low 136-145 mmol/L LAB 9388938 POTASSIUM (MMOL/L) IN SER/PLAS 3.5 3.5-5.1 mmol/L LAB 4096813 CHLORIDE (MMOL/L) IN SER/PLAS 102 98-107 mmol/L LAB [id number] CARBON DIOXIDE, TOTAL (MMOL/L) IN SER/PLAS 28 21-31 mmol/L LAB [id number] UREA NITROGEN (MG/DL) IN SER/PLAS 8 7-25 mg/dL LAB 7500758 CREATININE (MG/DL) IN SER/PLAS 0.60 0.60-1.20 mg/dL LAB [id number] GLUCOSE (MG/DL) IN SER/PLAS 92 70-100 mg/dL LAB 1650761 CALCIUM (MG/DL) IN SER/PLAS 7.7 Low 8.6-10.3 mg/dL LAB [id number] ANION GAP IN SER/PLAS 7 7-20 mmol/L LAB [id number] GLOMERULAR FILTRATION RATE ML/MIN/1.73 SQ M.PREDICTED 90.1 >60.0 mL/min/ 1.73m*2 Result Comment: [facility]???s estimated glomerular filtration rate (eGFR) will [...] disproportionately affect any one group of individuals. LAB [id number] UREA NITROGEN/CREA TININE (MASS RATIO) IN SER/PLAS 13.3 NA Performed By: #### [id number] ### # [facility] ([facility]) [address] [place] [address] 30 Observed: 07/08/2024 12:43 AM Status: COMPLETED Source: [facility] Problem: Pain - Adult Goal: Verbalizes/displays adequate comfort level or baseline comfort level Outcome: Progressing Flowsheets (Taken 07/08/202441) Verbalizes/displays adequate comfort level or baseline comfort level: Encourage patient to monitor pain and request assistance Assess pain using appropriate pain scale Administer analgesics based on type and severity of pain and evaluate response Implement non-pharmacological measures as appropriate and evaluate response Problem: Safety - Adult Goal: Free from fall injury Outcome: Progressing Flowsheets (Taken 07/08/202441) Free from fall injury: Assess patient frequently for physical needs Identify cognitive and physical deficits and behaviors that affect risk of falls [place] fall precautions as indicated by assessment Educate patient/family on patient safety, including physical limitations Instruct patient to call for assistance with activity based on assessment Modify environment to reduce risk of injury Problem: Discharge Planning Goal: Discharge to home or other facility with appropriate resources Outcome: Progressing Flowsheets (Taken 07/08/202441) Discharge to home or other facility with appropriate resources: Identify barriers to discharge with patient and caregiver Arrange for needed discharge resources and transportation as appropriate Identify discharge learning needs (meds, wound care, etc) Problem: Chronic Conditions and Co-morbidities Goal: Patient's chronic conditions and co-morbidity symptoms are monitored and maintained or improved Outcome: Progressing Flowsheets (Taken 07/08/202441) Care Plan - Patient's Chronic Conditions and Co-Morbidity Symptoms are Monitored and Maintained or Improved: Monitor and assess patient's chronic conditions and comorbid symptoms for stability, deterioration, or improvement Collaborate with multidisciplinary team to address chronic and comorbid conditions and prevent exacerbation or deterioration Update acute care plan with appropriate goals if chronic or comorbid symptoms are exacerbated and prevent overall improvement and discharge Problem: Skin/Tissue Integrity - Adult Goal: Skin integrity remains intact Outcome: Progressing Flowsheets (Taken 07/08/202441) Skin integrity remains intact: Monitor for areas of redness and/or skin breakdown Problem: Musculoskeletal - Adult Goal: Return mobility to safest level of function Outcome: Progressing Flowsheets (Taken 07/08/202441) Return mobility to safest level of function: Assess patient stability and activity tolerance for standing, transferring and ambulating with or without assistive devices Assist with transfers and ambulation using safe patient handling equipment as needed Obtain physical therapy/occupational therapy consults as needed Apply continuous passive motion per provider or physical therapy orders to increase flexion toward goal Problem: Metabolic/Fluid and Electrolytes - Adult Goal: Electrolytes maintained within normal limits Outcome: Progressing Flowsheets (Taken 07/08/202441) Electrolytes maintained within normal limits: Monitor labs and assess patient for signs and symptoms of electrolyte imbalances Administer electrolyte replacement as ordered Monitor response to electrolyte replacements, including repeat lab results as appropriate Problem: Hematologic - Adult Goal: Maintains hematologic stability Outcome: Progressing Flowsheets (Taken 07/08/202441) Maintains hematologic stability: Assess for signs and symptoms of bleeding or hemorrhage Monitor labs for bleeding or clotting disorders Administer blood products/factors as ordered Problem: Cardiovascular - Adult Goal: Maintains optimal cardiac output and hemodynamic stability Outcome: Progressing Flowsheets (Taken 07/08/202441) Maintains optimal cardiac output and hemodynamic stability: Monitor blood pressure and heart rate Assess for signs of decreased cardiac output Problem: Gastrointestinal - Adult Goal: Maintains or returns to baseline bowel function Outcome: Progressing Flowsheets (Taken 07/08/202441) Maintains or returns to baseline bowel function: Assess bowel function Goal: Maintains adequate nutritional intake Outcome: Progressing Flowsheets (Taken 07/08/202441) Maintains adequate nutritional intake: Monitor percentage of each meal consumed Identify factors contributing to decreased intake, treat as appropriate Problem: Genitourinary - Adult Goal: Absence of urinary retention Outcome: Progressing Flowsheets (Taken 07/08/202441) Absence of urinary retention: Assess patient???s ability to void and empty bladder Monitor intake/output and perform bladder scan as needed Problem: Infection - Adult Goal: Absence of infection at discharge Outcome: Progressing Flowsheets (Taken 07/08/202441) Absence of infection at discharge: Assess and monitor for signs and symptoms of infection Monitor lab/diagnostic results The patient is Moderately Stable - Low risk of patient condition declining or worsening The patient's goals for the shift include comfort/rest The clinical goals for the shift include optimize patient treatment options/goals TYPE AND SCREEN Collected: 07/07/2024 3:37 PM Status : UNK Source: [facility] TYPE CODE TESTS RESULT OUT OF RANGE REFERENCE UNITS LAB [id number] ABO GROUP (TYPE) IN BLOOD O LAB [id number] RH TYPE IN BLOOD POS LAB [id number] AB SCREEN NEG Performed By: #### [id number] ## ## [facility]OD B[facility] , PROGRESS Observed: 07/07/2024 12:03 PM Status: COMPLETED Source: [facility] Physical Therapy Physical Therapy Treatment Patient Name: Jenna Kumar : 1945 Today's Date: 07/07/2024 Patient Active Problem List Diagnosis GI bleed Posthemorrhagic anemia Jaundice Primary hypertension Hypokalemia Liver mass Obstructive jaundice (CMS/HCC) PT Therapeutic Procedures Time Entry Therapeutic Activity Time Entry: 29 Objective General Visit Information: PT Last Visit PT Received On: 07/07/24 General Family/Caregiver Present: No Subjective: Pt in bed upon arrival, initially refuses therapy. With minimal encouragement she is agreeable. RN agreeable for session. Patient reports she feels very weak as she is starting prep for colonoscopy. Precautions Precautions Medical Precautions: fall risk, telemetry Cognition Cognition Overall Cognitive Status: Within Functional Limits Arousal/Alertness: Appropriate responses to stimuli Orientation Level: Oriented X4 Following Commands: Follows all commands and directions without difficulty Static Sitting Balance Static Sitting Balance Static Sitting-Balance Support: No upper extremity supported Static Sitting-Level of Assistance: Distant supervision Static Sitting-Comment/Number of Minutes: sitting at EOB & on toilet Dynamic Sitting Balance Dynamic Sitting Balance Dynamic Sitting-Balance Support: No upper extremity supported Dynamic Sitting Balance-Level of Assistance: Distant supervision Dynamic Sitting-Comments: sitting EOB & on toilet Static Standing Balance Static Standing Balance Static Standing-Balance Support: Right upper extremity supported, Left upper extremity supported, With device Static Standing-Level of Assistance: Close supervision Static Standing-Comment/Number of Minutes: stood x4 minutes to be cleaned/change brief Cognition Overall Cognitive Status: Within Functional Limits Arousal/Alertness: Appropriate responses to stimuli Orientation Level: Oriented X4 Following Commands: Follows all commands and directions without difficulty Treatment: Therapeutic Activity Therapeutic Activity Time Entry: 29 Therapeutic Activity 1: Patient ambulates to restroom, stands to be cleaned/brief change. ambulates back to bedside chair. Changes gown and completes (B) LE ankle pumps, heel slides & hip abd x10 reps Ambulation Ambulation: Yes Ambulation 1 Surface 1: Level tile Device 1: Rolling walker Assistance 1: Contact guard Quality of Gait 1: patient ambulates with decreased velocity, decreased step length (B) and demonstartes no imbalance. Comments/Distance (ft) 1: 18 ft x2 Bed Mobility Bed Mobility: Yes Bed Mobility 1 Bed Mobility From 1: Supine Bed Mobility Type 1: To Bed Mobility to 1: Short sit Level of Assistance 1: Close supervision Transfer 1 Transfer From 1: Bed, Toilet, Chair with arms Transfer Type 1: To and from Transfer to 1: Bed, Toilet, Chair with arms Technique 1: Sit to stand, Stand to sit Transfer Device 1: rolling walker Transfer Level of Assistance 1: Contact guard Trials/Comments 1: cuing for technique Outcome Assessments 6 Clicks (Mobility) Help from another person turning from your back to your side while in a flat bed without using bedrails: A little Help from another person moving from lying on your back to sitting on the side of a flat bed without using bedrails: A little Help from another person moving to and from a bed to a chair (including a wheelchair): A little Help from another person standing up from a chair using your arms (e.g. wheelchair or bedside chair): A little Help from another person to walk in hospital room: A little Help from another person climbing 3-5 steps with a railing: A lot Mobility 6 Clicks T-Score: 17 Assessment/Plan PT Assessment PT Assessment/APPLIED BEHAVIOR SPECIALIST Summary: Patient completes gait, transfers, standing then reports increased fatigue. She is in bedside chair at end of session with RN in room and call light in reach. Goals: Multi-Disciplinary Problems (from Physical Therapy) Active Problems Problem: PT Misc Start Date: 07/04/24 Goal Start Date Expected End Date End Date Patient will perform bed mobility from flat bed independently without use of bed rails. 07/04/24 07/18/24 -- Goal Start Date Expected End Date End Date Pt to progress seated and standing balance to allow return to prior level of functional activity, ADLs and tasks 07/04/24 07/18/24 -- Goal Start Date Expected End Date End Date Pt to ambulate 150' independently to improve ability to safely navigate home; demonstrating safe/proper use of RW 07/04/24 07/18/24 -- Goal Start Date Expected End Date End Date Stairs as needed to access home, CGA 07/04/24 07/18/24 -- Goal Start Date Expected End Date End Date Pt to perform 45 min session including gait and standing dynamic activities to facilitate return to independent ADLs and tasks; with minimal rest breaks and vitals remaining in normal limits to improve endurance. 07/04/24 07/18/24 -- PROTIME-INR Collected: 5 11:26 AM Status: UNK Source: [facility] TYPE CODE TESTS RESULT OUT OF RANGE REFERENCE UNITS LAB [id number] PROTHROMBIN TIME (PT) IN PPP BY COAGULATION ASSAY 13.5 12.3-14.8 Seconds LAB [id number] INR IN PPP BY COAGULATION ASSAY 1.03 0.90-1.10 NA Result Comment: [facility] RECOMM ENDED INR FOR WARFARIN THERAPY CONDITION INR PROPHYLAXIS OF VENOUS THROMBOSIS 2-3 (HIGH-RISK SURGERY) TREATMENT OF VENOUS THROMBOSIS 2-3 TREATMENT OF PULMONARY EMBOLISM 2-3 PREVENTION OF SYSTEMIC EMBOLISM: 2-3 ACUTE MYOCARDIAL INFARCTION TISSUE HEART VALVES VALVULAR HEART DISEASE ATRIAL FIBRILLATION RECURRENT SYSTEMIC EMBOLISM MECHANICAL HEART VALVE 2.5-3.5 FROM: ORAL ANTICOAGULANTS. MECHANISM OF ACTION, CLINICAL EFFECTIVENESS, AND OPTIMAL THERAPEUTIC RANGE. CHEST 1995;108:231S-246S. Performed By: #### [id number] ## ## [facility] ([facility]) [address] [place] [address] PROGRESS Observed: 07/07/2024 10:30 AM Status: COMPLETED Source: [facility] Medicine Daily Progress Note - 07/07/2024 10:30 AM; Room: [address] [place] [address] Admission: 07/01/2024 9:06 PM; Length of stay: 6 days THE HOSPITALIST TEAM PREFERS TO USE [employer] FOR NON-URGENT COMMUNICATION 7AM-7PM. IF I DO NOT RESPOND WITHIN 20 MINUTES OR URGENT MATTERS, PLEASE CALL THROUGH THE SCREEN STRETCHER. FROM 7PM-7AM, PLEASE PAGE [phone](COVR). Code Status: Full Code Barriers to Discharge: Awaiting repeat cultures outcome and colonoscopy tomorrow and clearance from infectious disease for discharge planning Expected Discharge Date:07/07, Colonoscopy on Monday then clearance from ID and GI team Discharge Destination: home Overview Patient is seen for evaluation and management of melena, generalized weakness. Subjective Patient was seen and examined at bedside this morning. She was alert awake and oriented. He denied any active complaints. Patient stated she had a small smear of stool, which was still dark this morning. And is tolerating regular diet. No fever spikes in the last 48 hours, feeling better overall, undergoing bowel preparation for colonoscopy tomorrow, Physical Exam Visit Vitals BP 117/57 Pulse 81 Temp 36.6 ???C (97.8 ???F) Resp 25 Intake/Output Summary (Last 24 hours) at 07/07/2024 1030 Last data filed at 07/07/2024 0604 Gross per 24 hour Intake 300 ml Output -- Net 300 ml Physical Exam Constitutional: Appearance: Normal appearance. Eyes: General: Scleral icterus present. Cardiovascular: Rate and Rhythm: Normal rate and regular rhythm. Pulses: Normal pulses. Heart sounds: Normal heart sounds. Pulmonary: Effort: Pulmonary effort is normal. Breath sounds: Normal breath sounds. Abdominal: General: Abdomen is flat. Palpations: Abdomen is soft. Skin: General: Skin is warm. Neurological: General: No focal deficit present. Mental Status: She is alert and oriented to person, place, and time. Estimated body mass index is 26.83 kg/m??? as calculated from the following: Height as of this encounter: 1.626 m (5' 4 ). Weight as of this encounter: 70.9 kg (156 lb 4.9 oz). Active Inpatient Problems Principal Problem: GI bleed Active Problems: Posthemorrhagic anemia Primary hypertension Hypokalemia Liver mass Obstructive jaundice (CMS/HCC) Assessment and Plan #Gram-negative bacteremia with recent biliary stent placement, growing E. coli, presently Levaquin and Flagyl,, Appreciate infectious disease expertise, plan for repeat culture for bacteremia clearance, continue Levaquin and Flagyl,As well as on Merrem started yesterday by ID. Acute blood loss anemia secondary to duodenal ulcer Patient's hemoglobin dropped to 8.1, received 2 PRBC transfusions. EGD performed on 07/02 showed a small duodenal ulcer with active oozing, likely caused by direct pressure from biliary stent on duodenal wall. The stent has been repositioned. Hemostasis achieved. 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 Balloon dilatation of CBD followed by brushing and biopsies were performed, 2 biliary stents placed into left intrahepatic ducts after sphincterotomy ,Elevated LFTs are resolving slowly, to bilirubin 7.7 today, Biopsy results pending.Plan for colonoscopy and biopsy on Monday, Rectal mass concerning for adenocarcinoma Flexible sigmoidoscopy on 06/28 showed 5 cm circumferential polypoid rectal mass extends from the dentate line, involving rectal folds, biopsies obtained, Discussed with GI team, planning for colonoscopy on Monday for further evaluation for liver mass/malignancy?Plan for rectal MRI as an outpatient, Leukocytosis likely reactive in the setting of recent stenting and possible malignancy, Resolving, today 21, continue to monitor Primary hypertension Hold losartan as patient's blood pressure is borderline. Continue Lopressor at a lower dose of 12.5 mg twice a day. Hypokalemia Supplementation ordered #Abdominal wall rash with some itching, could be drug related?, Better now, Will monitor closely, add hydroxyzine as needed, discussed with the nurse at bedside to monitor QT intervals closely while taking Levaquin, VTE Prophylaxis: Contraindicated due to GI bleed Scheduled Meds levoFLOXacin, 500 mg, oral, Daily meropenem, 500 mg, intravenous, q6h metoprolol tartrate, 12.5 mg, oral, BID pantoprazole, 40 mg, oral, BID AC polyethylene glycol, 238 g, oral, Once Pertinent Investigations Hematology: Results from last 7 days Lab Units 07/07/2433607/06/2442007/02/24 2104 07/02/24 1417 07/02/24 0356 07/01/24 2159 WBC AUTO 10*3/uL 21.62* 25.48* < > 19.51* -- 22.21* HEMOGLOBIN g/dL 8.3* 8.2* < > 9.2* < > 8.1* HEMATOCRIT % 25.3* 25.7* < > 27.8* < > 24.2* MCV fL 90.0 90.5 < > 84.0 -- 89.0 PLATELETS AUTO 10*3/uL 282 258 < > 262 -- 259 INR -- -- -- 1.28* -- 1.29* < > = values in this interval not displayed. Chemistry: Results from last 7 days Lab Units 07/07/2433607/06/24 04207/05/24 0359 07/04/24 0635 07/03/24 0923 SODIUM mmol/L 135* 132* 132* 132* 133* POTASSIUM mmol/L 3.6 3.6 3.5 4.0 3.2* CHLORIDE mmol/L 102 103 103 104 105 CO2 mmol/L 27 24 25 24 21 BUN mg/dL 11 15 17 16 20 CREATININE mg/dL 0.63 0.78 0.86 0.76 0.72 GLUCOSE mg/dL 91 105* 110* 106* 128* MAGNESIUM mg/dL -- -- -- 1.7* 1.7* CALCIUM mg/dL 7.8* 7.6* 7.5* 7.7* 7.6* Results from last 7 days Lab Units 07/07/24 0337 07/06/24 0421 07/05/24 0359 07/04/24 0635 07/03/24 0923 07/02/24 0553 07/01/24 2159 AST U/L 62* 83* 128* 145* 158* 173* 192* ALT U/L 83* 105* 130* 154* 168* 178* 202* ALK PHOS U/L 505* 555* 649* 800* 746* 613* 682* BILIRUBIN TOTAL mg/dL 7.7* 8.7* 8.7* 8.8* 9.5* 10.5* 10.7* BILIRUBIN DIRECT mg/dL -- -- 5.2* 5.1* 5.7* -- 6.1* LIPASE U/L -- -- -- -- -- 56 95* Historical Values: (Includes values prior to this admission) No results found for: PREALBUMIN , TSH , T3FREE , FREET4 , CORTISOL , FEV1 , TTI9UNP , DLCO , RVSP , HDL , LDL Lab Results Component Value Date [id number] 1,533 (H) 07/04/2024 IRON 84 07/04/2024 TIBC 188 (L) 07/04/2024 CEA 2.2 07/04/2024 Imaging EGD Table formatting from the original result was not included. Esophagogastroduodenoscopy (EGD) Procedure Note Procedure: EGD with endoscopic management of bleeding ulcer. Indications: 79 y.o. female who was admitted with melena. The patient was recently seen for the history of obstructive jaundice. She had an ERCP with endoscopic ultrasound, fine-needle aspiration and biliary sphincterotomy with biliary stent placement on June 28, 2024. LFTs have been slowly improving. She also had a rectal mass that was biopsied. The patient is scheduled to have an EGD to assess a potential source for melena. Sedation: MAC Medications: EPINEPHrine (Adrenalin) 1 mg/10mL injection 10 mL (Totals for administrations occurring from 1737 to 1826 on 07/02/24) Attending Physician: Bradley Díaz MD Procedure Details: Informed consent was obtained for the procedure, including sedation. Risks of infection, perforation, hemorrhage, adverse drug reaction, and aspiration were discussed. The patient was placed in the left lateral decubitus position. The patient was monitored continuously with ECG tracing, pulse oximetry, blood pressure monitoring, and direct observation. The gastroscope was inserted into the mouth and advanced under direct vision to second portion of the duodenum. A careful inspection was made as the gastroscope was withdrawn, including a retroflexed view of the proximal stomach; findings and interventions are described below. Appropriate photodocumentation was obtained. Findings: The examination of the esophagus and the stomach were unremarkable. No blood was identified within the esophagus or the stomach. The examination of the duodenal bulb was unremarkable. The examination of the second part of the duodenum revealed to plastic biliary stent protruding through the papilla into the duodenal lumen. One of the stent was abutting the opposite duodenal wall causing small ulceration that was oozing small amount of blood. The stent position was readjusted using rat-tooth forceps. 3 hemoclips were deployed at the site of bleeding followed by injection of 10 mL of 1 in 10,000 epinephrine. Complete hemostasis was achieved. Specimens: No specimens collected Complications: None Estimated blood loss: Minimal Disposition: Home Condition: stable Impression: Small duodenal ulcer oozing blood caused by a direct pressure of the biliary stent on the opposite wall of the second part of the duodenum. The position of the stent was adjusted away from the duodenum wound and the site of the bleeding was clipped with. Hemoclips and injected with epinephrine. Complete hemostasis was achieved. The site of the sphincterotomy was unremarkable and bile was noted draining from the common bile duct as as well as from the biliary stents. Recommendations: Start clear liquid diet. Start IV PPI. Follow-up H&H Awaiting histopathology results from previous ERCP/EUS and flexible sigmoidoscopy with biopsies. Further plan depends upon the histopathology results. Attending Attestation: I performed the procedure. Discharge Planning Expected Discharge Disposition: Home-Health Care Svc (06) PT Discharge Recommendations: alf facility placement OT Discharge Recommendations: alf facility placement (Potential for home if activity tolerance improves) Signed Camron Driver MD [facility] Medicine 07/07/2024 10:30 AM PROGRESS Observed: 07/07/2024 8:21 AM Status: COMPLETED Source: [facility] Teaching GI Service Con sult Gastroenterology/Hepatology Progress Note IDENTIFYING DATA PATIENT: Jenan Kumar ADMIT DATE: 07/01/2024 TIME OF EVALUATION: 07/07/2024 8:21 AM HOSPITAL STAY: LOS: 6 days REASON FOR HOSPITALIZATION: Hematochezia SUBJECTIVE/INTERVAL HISTORY Jenna Kumar's overnight events were reviewed. Hemoglobin is 8.3, up from 8.2. LFTs remain elevated, but AST decreased from 83 to 62 U/L, ALT from 105 to 83 U/L, alkaline phosphatase from 555 to 505 U/L, and total bilirubin from 8.7 to 7.7 mg/dL. WBC count decreased from 25.48 to 21.62. The patient denies fever or chills and is resting comfortably in a chair. She has completed about half of her Nulytely and continues to have brown bowel movements with blood on wiping. The importance of adequate bowel preparation and the need for clear output were reviewed with the patient, who verbalized understanding and agreement with the plan of care. OBJECTIVE MEDICATIONS SCHEDULED: @MEDSCURRENTMD@ PRNs: acetaminophen, 650 mg, q8h PRN hydrOXYzine HCL, 10 mg, q6h PRN melatonin, 6 mg, Nightly PRN ondansetron, 4 mg, q6h PRN Physical VITALS: BP 117/57 Pulse 81 Temp 36.6 ???C (97.8 ???F) Resp 25 Ht 1.626 m (5' 4 ) Wt 70.9 kg (156 lb 4.9 oz) SpO2 98% BMI 26.83 kg/m??? GEN: Alert and oriented x3, NAD HEENT: Atraumatic, normocephalic, jaundice CV: No edema visualized PULM: Respirations even and unlabored ABD: Soft, non-tender, non-distended NEURO: Moves all 4 extremities spontaneously, answers questions appropriately LABS AND IMAGING CBC: Lab Results Component Value Date WBC 21.62 (H) 07/07/2024 RBC 2.81 (L) 07/07/2024 HGB 8.3 (L) 07/07/2024 HCT 25.3 (L) 07/07/2024 MCV 90.0 07/07/2024 RDW 23.5 (H) 07/07/2024 PLT 282 07/07/2024 CMP: Lab Results Component Value Date NA 135 (L) 07/07/2024 K 3.6 07/07/2024 CL 102 07/07/2024 CO2 27 07/07/2024 BUN 11 07/07/2024 PROT 4.1 (L) 07/07/2024 IMAGING: Esophagogastroduodenoscopy (EGD) Procedure Note 07/03/2024 Impression: Small duodenal ulcer oozing blood caused by a direct pressure of the biliary stent on the opposite wall of the second part of the duodenum. The position of the stent was adjusted away from the duodenum wound and the site of the bleeding was clipped with. Hemoclips and injected with epinephrine. Complete hemostasis was achieved. The site of the sphincterotomy was unremarkable and bile was noted draining from the common bile duct as as well as from the biliary stents. Recommendations: Start clear liquid diet. Start IV PPI. Follow-up H&H Awaiting histopathology results from previous ERCP/EUS and flexible sigmoidoscopy with biopsies. Further plan depends upon the histopathology results. ASSESSMENT AND PLAN Jenna Kumar is a 79 y.o. female with a history of left bundle branch block, transferred for evaluation of new-onset gastrointestinal bleeding and progressive fatigue. She initially presented with jaundice, white stools, and dark urine in early June, prompting workup revealing cholestasis and hepatic dysfunction. 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 Endoscopic evaluation on 06/28/2024, including ERCP with balloon dilation and stent placement, revealed a high-grade hilar stricture, a large hepatic mass, and a common hepatic duct mass. Post-procedure, she developed worsening fatigue, anorexia, pruritus, dark yellow urine, and recurrent dark red rectal bleeding. Labs indicate acute blood loss anemia (Hgb 8.1), Assessment Obstructive Jaundice with Cholangiocarcinoma s/p ERCP/EUS High-grade hilar stricture with diffuse left intrahepatic biliary dilation. EGD with EUS/ERCP on 06/28/2024 revealed high-grade hilar stricture with diffusely dilated left intrahepatic biliary system. Right intrahepatic ducts could not be opacified. Biopsy results positive for adenocarcinoma. Rectal Mass 5 cm circumferential polypoid rectal mass extending from the dentate line, involving rectal folds. 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 Acute Blood Loss Anemia s/p EGD with findings of a duodenal ulcer Patient experienced dark red rectal bleeding with worsening fatigue. Hemoglobin levels declined to 8.1 g/dL, requiring 2 units of PRBC transfusion. EGD on 07/02/2024 identified a small duodenal ulcer with active oozing, likely due to pressure from the biliary stent. Stent was repositioned to relieve pressure, and endoscopic hemostasis was achieved with hemoclips and epinephrine injection. The sphincterotomy site was unremarkable, and bile was draining appropriately from the common bile duct and biliary stents. E. Coli Bacteremia with Leukocytosis Plan Tentatively plan for colonoscopy with biopsy on 07/08/2024 for further assessment of the rectal mass, pending clinical course. Continue clear liquid diet and bowel prep; educated the patient on the importance of good prep. NPO at midnight; hold all anticoagulation, including DVT prophylaxis, at midnight as well. Continue Protonix 40 mg BID. Trend LFTs. Trend hemoglobin and hematocrit; transfuse as needed. Monitor for overt bleeding. Hematology/oncology on board; appreciate recommendations. Medical management per primary team. The case will be discussed with the attending physician For Questions please contact us at: [facility] 6 am to 4 pm weekdays in house Phone extension: [phone] 4 pm to 6 am or weekends please contact the paradi operator to page the fellow applications support lead COMPREHENSIVE METABOLIC PANEL Collected: 07/07/2024 3 :37 AM Status: UNK Source: [facility] TYPE CODE TESTS RESULT OUT OF RANGE REFERENCE UNITS LAB [id number] SODIUM (MMOL/L) IN SER/PLAS 135 Low 136-145 mmol/L LAB [id number] POTASSIUM (MMOL/ L) IN SER/PLAS 3.6 3.5-5.1 mmol/L LAB [id number] CHLORIDE (MMOL/L ) IN SER/PLAS 102 98-107 mmol/L LAB [id number] CARBON DIOXIDE, TOTAL (MMOL/L) IN SER/PLAS 27 21-31 mmol/L LAB [id number] ANION GAP IN SER/PLAS 10 7-20 mmol/L LAB [id number] UREA NITROGEN (MG/DL) IN SER/PLAS 11 7-25 mg/dL LAB [id number] CREATININE (MG/D L) IN SER/PLAS 0.63 0.60-1.20 mg/dL LAB [id number] UREA NITROGEN/CREATININ E (MASS RATIO) IN SER/PLAS 17.5 NA LAB [id number] GLUCOSE (MG/DL) IN SER/PLAS 91 70-100 mg/dL LAB [id number] CALCIUM (MG/DL) IN SER/PLAS 7.8 Low 8.6-10.3 mg/dL LAB [id number] ASPARTATE AMINOTRANSFERASE (SGOT) (U/L) IN SER/PLAS 62 High 13-39 U/L LAB [id number] ALANINE AMINOTRANSFERASE (SGPT) (U/L) IN SER/PLAS 83 High 7-52 U/L LAB [id number] ALKALINE PHOSPHATASE (U/L) IN SER/PLAS 505 High 34-104 U/L LAB [id number] PROTEIN (G/DL) I N SER/PLAS 4.1 Low 6.0-8.3 g/dL LAB [id number] ALBUMIN (G/DL) I N SER/PLAS 2.1 Low 3.5-5.7 g/dL LAB [id number] BILIRUBIN TOTAL (MG/DL) IN SER/PLAS 7.7 High 0.3-1.0 mg/dL LAB [id number] GLOMERULAR FILTRATION RATE ML/MIN/1.73 SQ M.PREDICTED 89.1 >60.0 mL/min /1.73m *2 Result Comment: [facility]???s estimated glomerular filtration rate (eGFR) will [...] one group of individuals. Performed By: #### [id number] ### # [facility] ([facility]) [address] [place] [address] CBC Collected: 07/07/2024 3:37 AM Status: UN K Source: [facility] TYPE CODE TESTS RESULT OUT OF RANGE REFERENCE UNITS LAB [id number] LEUKOCYTES(10*3/ U L) IN BLOOD BY AUTOMATED COUNT 21.62 High 4.00-10.60 10*3/uL LAB [id number] ERYTHROCYTES (10*6/UL) IN BLOOD BY AUTOMATED COUNT 2.81 Low 3.80-5.00 10*6/uL LAB [id number] HEMOGLOBIN (G/DL ) IN BLOOD 8.3 Low 12.0-15.0 g/dL LAB [id number] HEMATOCRIT (%) I N BLOOD BY AUTOMATED COUNT 25.3 Low 36.0-48.0 % LAB [id number] ERYTHROCYTE MEAN CORPUSCULAR VOLUME (FL) BY AUTOMATED COUNT 90.0 82.0-98.0 fL LAB [id number] ERYTHROCYTE MEAN CORPUSCULAR HEMOGLOBIN (PG) BY AUTOMATED COUNT 29.5 27.0-33.0 pg LAB [id number] ERYTHROCYTE MEAN CORPUSCULAR HEMOGLOBIN CONCENTRATION (G/DL) BY AUTOMATED 32.8 32.0-35.0 g/dL LAB [id number] ERYTHROCYTE DISTRIBUTION WIDTH (RATIO) BY AUTOMATED COUNT 23.5 High 11.5-15.0 % LAB [id number] PLATELETS (10*3/UL) IN BLOOD AUTOMATED COUNT 282 150-400 10*3/uL Performed By: #### [id number] ## ## [facility] ([facility]) [address] [place] [address] 30 Observed: 07/06/2024 7:53 PM Status: COMPLETED Source: [facility] The patient is Moderately St able - Low risk of patient condition declining or worsening The patient's goals for the shift include comfort The clinical goals for the shift include VSS,safety, comfort Problem: Pain - Adult Goal: Verbalizes/displays adequate comfort level or baseline comfort level Outcome: ProgressingProblem: Safety - Adult Goal: Free from fall injury Outcome: ProgressingProblem: Discharge Planning Goal: Discharge to home or other facility with appropriate resources Outcome: Progressing 30 Observed: 07/06/2024 4:19 PM Status: COMPLETED Source: [facility] The patient is Moderately St able - Low risk of patient condition declining or worsening The patient's goals for the shift include comfort The clinical goals for the shift include stable vitals PROGRESS Observed: 07/06/2024 4:08 PM Status: COMPLETED Source: [facility] Infectious Diseases - Inpatient daily Progress Note - Patient name: Jenna Kumar Patient Today's Date and Time: 07/06/2024, 4:08 PM Admission Date: 07/01/2024 Assessment/Plan Impression: E coli Gram-negative bacteremia in the setting of recent biliary stent placement She does not have enterobacter ( the biofire is reporting enterobacterales group is positive the species that positive under that group is E coli ) On 06/28 the patient underwent balloon dilatation of the CBD with biopsies followed by 2 biliary stents placement into the left intrahepatic ducts in addition to sphincterectomy Acute leukocytosis, likely due to infection versus reactive 25 today Multiple masses concerning for malignancy including left hepatic mass, mass within the common bile duct, rectal mass Biliary sepsis liver enzymes are slowly improving but she still has significant jaundice Recommendations: Switched to iv meropenem since she is PCN allergic . I Did not continue Levaquin for fear of arrhythmias Blood cultures 2 out of 2 07/04/2024 positive for E. Coli Cultures 2 out of 2 07/06/2024 so far in process Subjective Interval history: an 79 y.o. female transferred from [place] [facility] to [facility] ER when she presented to [place] [facility] for recurrent GI bleed increased fatigue weakness and found to have hemoglobin around 7 and blood pressure was low patient was admitted at [facility] on 06/28/2024 with diagnosis of jaundice pruritus [...] some dyspeptic symptoms pruritus feeling weak fatigue tired Chest pain palpitation PND orthopnea nausea vomiting, vague epigastric discomfort nonradiating unrelated to meals, she has been feeling tired and had slept all day day back today she does get up but was told we cannot stand on for on her face with impact to left cheek, denies syncope or feeling like passing out. Workup in the ER showed sodium 135 potassium 3.3 chloride 108 CO2 19 BUN 30 creatinine 0.66 troponin were negative lipase 95 bilirubin 10.7 alkaline phosphatase 682 ALT 202 INR 1.29 WBC 22.21 hemoglobin 8.1 hematocrit 24.2. Patient blood cultures grew E. coli yesterday and the patient was febrile yesterday as well and max temperature of 38.3. 07/06/2024: No fever Her abdominal pain feels better And nausea resolved And no vomiting Objective Physical Examination: BP 109/65 Pulse 92 Temp 36.1 ???C (97 ???F) Resp 17 Ht 1.626 m (5' 4 ) Wt 69.2 kg (152 lb 8.9 oz) SpO2 95% BMI 26.19 kg/m??? Temperature Range: Temp: 36.1 ???C (97 ???F) Temp Av ???C (98.6 ???F) Min: 36.1 ???C (97 ???F) Max: 37.6 ???C (99.6 ???F) Appearance she is awake alert no acute focal neurological deficit. Sclera icteric she is jaundiced. Neck is supple. Respiratory bilateral air entry clear no wheezes no crepitations. Cardiovascular heart sounds are regular. GI abdomen is soft nontender negative Cason sign today it was positive yesterday. Positive bowel sounds. Extremities show intact pulsations. Neurologically she is awake alert oriented x 3 no acute focal neurological deficit. Skin no rashes or lesions but she has obvious jaundice. Laboratory data: I have independently reviewed the following labs: Results from last 7 days Lab Units 07/06/2442007/05/24 0359 07/04/24 0635 07/03/24 0713 07/02/24 2104 07/02/24 1417 WBC AUTO 10*3/uL 25.48* 29.48* 20.22* 19.30* -- 19.51* HEMOGLOBIN g/dL 8.2* 8.6* 8.9* 8.9* 8.9* < > 9.2* HEMATOCRIT % 25.7* 27.2* 27.7* 27.2* 27.3* < > 27.8* MCV fL 90.5 90.7 87.9 84.7 -- 84.0 PLATELETS AUTO 10*3/uL 258 261 281 266 -- 262 NEUTROS ABS 10*3/uL -- -- 16.8* 16.0* -- 16.8* EOS ABS MAN 10*3/uL -- -- 0.95* 0.14 -- 0.51* BASOS ABS MAN 10*3/uL -- -- 0.14 0.00 -- 0.00 < > = values in this interval not displayed. Results from last 7 days Lab Units 07/06/2442007/05/24 0359 07/04/24 0635 POTASSIUM mmol/L 3.6 3.5 4.0 CHLORIDE mmol/L 103 103 104 CO2 mmol/L 24 25 24 BUN mg/dL 15 17 16 CREATININE mg/dL 0.78 0.86 0.76 GLUCOSE mg/dL 105* 110* 106* CALCIUM mg/dL 7.6* 7.5* 7.7* ALK PHOS U/L 555* 649* 800* ALT U/L 105* 130* 154* AST U/L 83* 128* 145* No lab exists for component: PROCALCITON Results from last 7 days Lab Units 07/02/24 0037 GLUCOSE U MG/DL mg/dL Normal UROBILINOGEN URINE mg/dL 2.0* BILIRUBIN U Small* WBC UR HPF /HPF 6-10* No lab exists for component: TOXIGENICC Imaging Studies: I have reviewed myself the following imaging studies performed in the past 3 days: No X-ray results found for the past [address] results found for the past 3 days No MRI results found for the past 3 days Cultures: Results for orders placed or performed during the hospital encounter of 07/01/24 Blood culture, peripheral #2 Specimen: Blood, Venous Result Value Ref Range Blood Culture No growth at 2 days Blood culture, peripheral #1 Specimen: Blood, Venous Result Value Ref Range Blood Culture Escherichia coli (A) Gram Stain Result Aerobic Bottle Yields Gram negative bacilli (A) Medications: levoFLOXacin, 500 mg, oral, Daily meropenem, 500 mg, intravenous, q6h metoprolol tartrate, 12.5 mg, oral, BID pantoprazole, 40 mg, oral, BID AC polyethylene glycol, 238 g, oral, Once This progress note was completed using a voice plate developer system. Every effort was made to ensure accuracy; however, inadvertent computerized plate developer errors may be present. Thank you for allowing us to participate in the care of this patient. Our consultation addresses complex disease transmission risk assessment and mitigation and complex antimicrobial therapy counseling and treatment Hend MD Harinder [facility] Infectious Diseases Please contact us via [employer] during business hours. If no response in 15 min, call / page through the paradi operator BLOOD CULTURE Collected: 5 12:55 PM Status: UNK Source: [facility] TYPE CODE TESTS RESULT OUT OF RANGE REFERENCE UNITS LAB [id number] BLOOD CULTURE No growth at 5 days Performed By: #### [id number] ## ## [facility] ([facility]) [address] [place] [address] BLOOD CULTURE Collected: 12:55 PM Status: UNK Source: [facility] TYPE CODE TESTS RESULT OUT OF RANGE REFERENCE UNITS LAB [id number] BLOOD CULTURE No growth at 5 days Performed By: #### [id number] ## ## [facility] ([facility]) [address] [place] [address] C-REACTIVE PROTEIN Collected: 12:55 PM Status: UNK Source: [facility] TYPE CODE TESTS RESULT OUT OF RANGE REFERENCE UNITS LAB [id number] C REACTIVE PROTEIN (MG/L) IN SER/PLAS 121.9 High <=5.0 mg/L Result Comment: Testing perf ormed using a new methodology, turbidimetry. Normal ranges have been updated. Old normal range was <8 mg/L. Performed By: #### [id number] ## ## [facility] ([facility]) [address] [place] [address] PROGRESS Observed: 07/06/2024 12:47 PM Status: COMPLETED Source: [facility] Medicine Daily Progress Note - 07/06/2024 12:47 PM; Room: [address] [place] [address] Admission: 07/01/2024 9:06 PM; Length of stay: 5 days THE HOSPITALIST TEAM PREFERS TO USE Section 101 CHAT FOR NON-URGENT COMMUNICATION 7AM-7PM. IF I DO NOT RESPOND WITHIN 20 MINUTES OR URGENT MATTERS, PLEASE CALL THROUGH THE SCREEN STRETCHER. FROM 7PM-7AM, PLEASE PAGE [phone](COVR). Code Status: Full Code Barriers to Discharge: Fever spike with positive cultures growing E. coli, infectious disease team following along defer timeline for repeat cultures per ID, presently afebrile, Expected Discharge Date:07/07, Colonoscopy on Monday then clearance from ID and GI team Discharge Destination: home Overview Patient is seen for evaluation and management of melena, generalized weakness. Subjective Patient was seen and examined at bedside this morning. She was alert awake and oriented. He denied any active complaints. Patient stated she had a small smear of stool, which was still dark this morning. And is tolerating regular diet. No fever spikes reported in the last 24 hours, overall doing well, complaining of a rash around abdominal wall, with some itching, Physical Exam Visit Vitals BP 109/65 Pulse 92 Temp 36.1 ???C (97 ???F) Resp 17 Intake/Output Summary (Last 24 hours) at 07/06/2024 1247 Last data filed at 07/06/2024 0508 Gross per 24 hour Intake 200 ml Output -- Net 200 ml Physical Exam Constitutional: Appearance: Normal appearance. Eyes: General: Scleral icterus present. Cardiovascular: Rate and Rhythm: Normal rate and regular rhythm. Pulses: Normal pulses. Heart sounds: Normal heart sounds. Pulmonary: Effort: Pulmonary effort is normal. Breath sounds: Normal breath sounds. Abdominal: General: Abdomen is flat. Palpations: Abdomen is soft. Skin: General: Skin is warm. Neurological: General: No focal deficit present. Mental Status: She is alert and oriented to person, place, and time. Estimated body mass index is 26.19 kg/m??? as calculated from the following: Height as of this encounter: 1.626 m (5' 4 ). Weight as of this encounter: 69.2 kg (152 lb 8.9 oz). Active Inpatient Problems Principal Problem: GI bleed Active Problems: Posthemorrhagic anemia Primary hypertension Hypokalemia Liver mass Obstructive jaundice (CMS/HCC) Assessment and Plan #Gram-negative bacteremia with recent biliary stent placement, growing E. coli, presently Levaquin and Flagyl,, Appreciate infectious disease expertise, plan for repeat culture for bacteremia clearance, continue Levaquin and Flagyl, dose of Merrem was added by ID today, Acute blood loss anemia secondary to duodenal ulcer Patient's hemoglobin dropped to 8.1, received 2 PRBC transfusions. EGD performed on 07/02 showed a small duodenal ulcer with active oozing, likely caused by direct pressure from biliary stent on duodenal wall. The stent has been repositioned. Hemostasis achieved. 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 Balloon dilatation of CBD followed by brushing and biopsies were performed, 2 biliary stents placed into left intrahepatic ducts after sphincterotomy , Continue to monitor LFTs closely, Biopsy results pending.Plan for colonoscopy and biopsy on Monday, Rectal mass concerning for adenocarcinoma Flexible sigmoidoscopy on 06/28 showed 5 cm circumferential polypoid rectal mass extends from the dentate line, involving rectal folds, biopsies obtained, Discussed with GI team, planning for colonoscopy on Monday for further evaluation for liver mass/malignancy?Plan for rectal MRI as an outpatient, Leukocytosis likely reactive in the setting of recent stenting and possible malignancy, Resolving, today , continue to monitor Primary hypertension Hold losartan as patient's blood pressure is borderline. Continue Lopressor at a lower dose of 12.5 mg twice a day. Hypokalemia Supplementation ordered #Abdominal wall rash with some itching, could be drug related?, Will monitor closely, add hydroxyzine as needed, discussed with the nurse at bedside to monitor QT intervals closely while taking Levaquin, VTE Prophylaxis: Contraindicated due to GI bleed Scheduled Meds levoFLOXacin, 500 mg, oral, Daily meropenem, 500 mg, intravenous, q6h metoprolol tartrate, 12.5 mg, oral, BID pantoprazole, 40 mg, oral, BID AC polyethylene glycol, 238 g, oral, Once [COMPLETED] polyethylene glycol-electrolytes, 4,000 mL, oral, Once Pertinent Investigations Hematology: Results from last 7 days Lab Units 07/06/24 04207/05/24 0359 07/02/24 2104 07/02/24 1417 07/02/24 0356 07/01/24 2159 WBC AUTO 10*3/uL 25.48* 29.48* < > 19.51* -- 22.21* HEMOGLOBIN g/dL 8.2* 8.6* < > 9.2* < > 8.1* HEMATOCRIT % 25.7* 27.2* < > 27.8* < > 24.2* MCV fL 90.5 90.7 < > 84.0 -- 89.0 PLATELETS AUTO 10*3/uL 258 261 < > 262 -- 259 INR -- -- -- 1.28* -- 1.29* < > = values in this interval not displayed. Chemistry: Results from last 7 days Lab Units 07/06/24 04207/05/24 0359 07/04/24 0635 07/03/24 0923 SODIUM mmol/L 132* 132* 132* 133* POTASSIUM mmol/L 3.6 3.5 4.0 3.2* CHLORIDE mmol/L 103 103 104 105 CO2 mmol/L 24 25 24 21 BUN mg/dL 15 17 16 20 CREATININE mg/dL 0.78 0.86 0.76 0.72 GLUCOSE mg/dL 105* 110* 106* 128* MAGNESIUM mg/dL -- -- 1.7* 1.7* CALCIUM mg/dL 7.6* 7.5* 7.7* 7.6* Results from last 7 days Lab Units 07/06/24 0421 07/05/24 0359 07/04/24 0635 07/03/24 0923 07/02/24 0553 07/01/24 2159 AST U/L 83* 128* 145* 158* 173* 192* ALT U/L 105* 130* 154* 168* 178* 202* ALK PHOS U/L 555* 649* 800* 746* 613* 682* BILIRUBIN TOTAL mg/dL 8.7* 8.7* 8.8* 9.5* 10.5* 10.7* BILIRUBIN DIRECT mg/dL -- 5.2* 5.1* 5.7* -- 6.1* LIPASE U/L -- -- -- -- 56 95* Historical Values: (Includes values prior to this admission) No results found for: PREALBUMIN , TSH , T3FREE , FREET4 , CORTISOL , FEV1 , VPQ8ZWA , DLCO , RVSP , HDL , LDL Lab Results Component Value Date [id number] 1,533 (H) 07/04/2024 IRON 84 07/04/2024 TIBC 188 (L) 07/04/2024 CEA 2.2 07/04/2024 Imaging EGD Table formatting from the original result was not included. Esophagogastroduodenoscopy (EGD) Procedure Note Procedure: EGD with endoscopic management of bleeding ulcer. Indications: 79 y.o. female who was admitted with melena. The patient was recently seen for the history of obstructive jaundice. She had an ERCP with endoscopic ultrasound, fine-needle aspiration and biliary sphincterotomy with biliary stent placement on June 28, 2024. LFTs have been slowly improving. She also had a rectal mass that was biopsied. The patient is scheduled to have an EGD to assess a potential source for melena. Sedation: MAC Medications: EPINEPHrine (Adrenalin) 1 mg/10mL injection 10 mL (Totals for administrations occurring from 1737 to 1826 on 07/02/24) Attending Physician: Bradley Díaz MD Procedure Details: Informed consent was obtained for the procedure, including sedation. Risks of infection, perforation, hemorrhage, adverse drug reaction, and aspiration were discussed. The patient was placed in the left lateral decubitus position. The patient was monitored continuously with ECG tracing, pulse oximetry, blood pressure monitoring, and direct observation. The gastroscope was inserted into the mouth and advanced under direct vision to second portion of the duodenum. A careful inspection was made as the gastroscope was withdrawn, including a retroflexed view of the proximal stomach; findings and interventions are described below. Appropriate photodocumentation was obtained. Findings: The examination of the esophagus and the stomach were unremarkable. No blood was identified within the esophagus or the stomach. The examination of the duodenal bulb was unremarkable. The examination of the second part of the duodenum revealed to plastic biliary stent protruding through the papilla into the duodenal lumen. One of the stent was abutting the opposite duodenal wall causing small ulceration that was oozing small amount of blood. The stent position was readjusted using rat-tooth forceps. 3 hemoclips were deployed at the site of bleeding followed by injection of 10 mL of 1 in 10,000 epinephrine. Complete hemostasis was achieved. Specimens: No specimens collected Complications: None Estimated blood loss: Minimal Disposition: Home Condition: stable Impression: Small duodenal ulcer oozing blood caused by a direct pressure of the biliary stent on the opposite wall of the second part of the duodenum. The position of the stent was adjusted away from the duodenum wound and the site of the bleeding was clipped with. Hemoclips and injected with epinephrine. Complete hemostasis was achieved. The site of the sphincterotomy was unremarkable and bile was noted draining from the common bile duct as as well as from the biliary stents. Recommendations: Start clear liquid diet. Start IV PPI. Follow-up H&H Awaiting histopathology results from previous ERCP/EUS and flexible sigmoidoscopy with biopsies. Further plan depends upon the histopathology results. Attending Attestation: I performed the procedure. Discharge Planning Expected Discharge Disposition: [place] [facility] [place] Discharge Recommendations: alf facility placement OT Discharge Recommendations: alf facility placement (Potential for home if activity tolerance improves) Signed Camron Drievr MD Hospital Medicine 07/06/2024 12:47 PM PROGRESS Observed: 07/06/2024 11:53 AM Status: COMPLETED Source: [facility] Teaching GI Service Con sult Gastroenterology/Hepatology Progress Note IDENTIFYING DATA PATIENT: Jenna Kumar ADMIT DATE: 07/01/2024 TIME OF EVALUATION: 07/06/2024 11:53 AM HOSPITAL STAY: LOS: 5 days REASON FOR HOSPITALIZATION: Hematochezia SUBJECTIVE/INTERVAL HISTORY Jenna Kumar's overnight events were reviewed. The patient is resting in bed comfortably and reports ongoing fatigue and weakness. She states that she is tolerating her diet well, although she has a decreased appetite. The plan for a colonoscopy on Monday with a 2-day prep was discussed with the patient, who verbalized understanding and agreement with the plan of care. WBC 25.48 from 29.48, Hgb 8.2 from 8.6. OBJECTIVE MEDICATIONS SCHEDULED: @MEDSCURRENTMD@ PRNs: acetaminophen, 650 mg, q8h PRN hydrOXYzine HCL, 10 mg, q6h PRN melatonin, 6 mg, Nightly PRN ondansetron, 4 mg, q6h PRN Physical VITALS: BP 106/55 Pulse 71 Temp 36.1 ???C (97 ???F) Resp 17 Ht 1.626 m (5' 4 ) Wt 69.2 kg (152 lb 8.9 oz) SpO2 95% BMI 26.19 kg/m??? GEN: Alert and oriented x3, NAD HEENT: Atraumatic, normocephalic CV: No edema visualized PULM: Respirations even and unlabored ABD: Soft, non-tender, non-distended NEURO: Moves all 4 extremities spontaneously, answers questions appropriately LABS AND IMAGING CBC: Lab Results Component Value Date WBC 25.48 (H) 07/06/2024 RBC 2.84 (L) 07/06/2024 HGB 8.2 (L) 07/06/2024 HCT 25.7 (L) 07/06/2024 MCV 90.5 07/06/2024 RDW 23.8 (H) 07/06/2024 PLT 258 07/06/2024 CMP: Lab Results Component Value Date NA 132 (L) 07/06/2024 K 3.6 07/06/2024 CL 103 07/06/2024 CO2 24 07/06/2024 BUN 15 07/06/2024 PROT 4.1 (L) 07/06/2024 IMAGING: Esophagogastroduodenoscopy (EGD) Procedure Note 07/03/2024 Impression: Small duodenal ulcer oozing blood caused by a direct pressure of the biliary stent on the opposite wall of the second part of the duodenum. The position of the stent was adjusted away from the duodenum wound and the site of the bleeding was clipped with. Hemoclips and injected with epinephrine. Complete hemostasis was achieved. The site of the sphincterotomy was unremarkable and bile was noted draining from the common bile duct as as well as from the biliary stents. Recommendations: Start clear liquid diet. Start IV PPI. Follow-up H&H Awaiting histopathology results from previous ERCP/EUS and flexible sigmoidoscopy with biopsies. Further plan depends upon the histopathology results. ASSESSMENT AND PLAN Jenna Kumar is a 79 y.o. female with a history of left bundle branch block, transferred for evaluation of new-onset gastrointestinal bleeding and progressive fatigue. She initially presented with jaundice, white stools, and dark urine in early June, prompting workup revealing cholestasis and hepatic dysfunction. 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 Endoscopic evaluation on 06/28/2024, including ERCP with balloon dilation and stent placement, revealed a high-grade hilar stricture, a large hepatic mass, and a common hepatic duct mass. Post-procedure, she developed worsening fatigue, anorexia, pruritus, dark yellow urine, and recurrent dark red rectal bleeding. 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 EGD with EUS/ERCP on 06/28/2024 revealed a high-grade hilar stricture with a diffusely dilated left intrahepatic biliary system. The right intrahepatic ducts could not be opacified. Biopsy results positive for adenocarcinoma. Large Left Hepatic Mass and Mass Within the Common Hepatic Duct Rectal Mass A 5 cm circumferential polypoid rectal mass extends from the dentate line, involving rectal folds. 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 Acute Blood Loss Anemia The patient experienced dark red rectal bleeding accompanied by worsening fatigue. Hemoglobin levels declined to 8.1 g/dL, necessitating the transfusion of 2 units of packed red blood cells (PRBCs). An EGD performed on 07/02/2024 identified a small duodenal ulcer with active oozing, likely caused by direct pressure from the biliary stent on the duodenal wall. The stent was repositioned to alleviate pressure, and endoscopic hemostasis was successfully achieved using hemoclips and epinephrine injection. The sphincterotomy site appeared unremarkable, and bile was draining appropriately from the common bile duct and biliary stents. E. Coli Bacteremia with Leukocytosis Plan: Tentatively plan for colonoscopy with biopsy on 07/08/2024 for further assessment of rectal mass, pending clinical course OK for a regular diet from a GI perspective, will transition to a clear liquid diet today at 1300, and begin the 2-day prep. Continue Protonix 40 mg BID Trend LFT's. Trend H&H and transfuse as needed Monitor for overt bleeding Hemonc on board, appreciate recommendations. Medical management per primary. The case will be discussed with the attending physician For Questions please contact us at: [facility] 6 am to 4 pm weekdays in house Phone extension: [phone] 4 pm to 6 am or weekends please contact the paradi operator to page the fellow applications support lead CBC Collected: 07/06/2024 4:21 AM Status: UN K Source: [facility] TYPE CODE TESTS RESULT OUT OF RANGE REFERENCE UNITS LAB [id number] LEUKOCYTES(10*3/ U L) IN BLOOD BY AUTOMATED COUNT 25.48 High 4.00-10.60 10*3/uL LAB [id number] ERYTHROCYTES (10*6/UL) IN BLOOD BY AUTOMATED COUNT 2.84 Low 3.80-5.00 10*6/uL LAB [id number] HEMOGLOBIN (G/DL ) IN BLOOD 8.2 Low 12.0-15.0 g/dL LAB [id number] HEMATOCRIT (%) I N BLOOD BY AUTOMATED COUNT 25.7 Low 36.0-48.0 % LAB [id number] ERYTHROCYTE MEAN CORPUSCULAR VOLUME (FL) BY AUTOMATED COUNT 90.5 82.0-98.0 fL LAB [id number] ERYTHROCYTE MEAN CORPUSCULAR HEMOGLOBIN (PG) BY AUTOMATED COUNT 28.9 27.0-33.0 pg LAB [id number] ERYTHROCYTE MEAN CORPUSCULAR HEMOGLOBIN CONCENTRATION (G/DL) BY AUTOMATED 31.9 Low 32.0-35.0 g/dL LAB [id number] ERYTHROCYTE DISTRIBUTION WIDTH (RATIO) BY AUTOMATED COUNT 23.8 High 11.5-15.0 % LAB [id number] PLATELETS (10*3/UL) IN BLOOD AUTOMATED COUNT 258 150-400 10*3/uL Performed By: #### [id number] ## ## [facility] ([facility]) [address] [place] [address] COMPREHENSIVE METABOLIC PANEL Collected: 07/06/2024 4 :21 AM Status: UNK Source: [facility] TYPE CODE TESTS RESULT OUT OF RANGE REFERENCE UNITS LAB [id number] SODIUM (MMOL/L) IN SER/PLAS 132 Low 136-145 mmol/L LAB [id number] POTASSIUM (MMOL/ L) IN SER/PLAS 3.6 3.5-5.1 mmol/L LAB [id number] CHLORIDE (MMOL/L ) IN SER/PLAS 103 98-107 mmol/L LAB [id number] CARBON DIOXIDE, TOTAL (MMOL/L) IN SER/PLAS 24 21-31 mmol/L LAB [id number] ANION GAP IN SER/PLAS 9 7-20 mmol/L LAB [id number] UREA NITROGEN (MG/DL) IN SER/PLAS 15 7-25 mg/dL LAB [id number] CREATININE (MG/D L) IN SER/PLAS 0.78 0.60-1.20 mg/dL LAB [id number] UREA NITROGEN/CREATININ E (MASS RATIO) IN SER/PLAS 19.2 NA LAB [id number] GLUCOSE (MG/DL) IN SER/PLAS 105 High 70-100 mg/dL LAB [id number] CALCIUM (MG/DL) IN SER/PLAS 7.6 Low 8.6-10.3 mg/dL LAB [id number] ASPARTATE AMINOTRANSFERASE (SGOT) (U/L) IN SER/PLAS 83 High 13-39 U/L LAB [id number] ALANINE AMINOTRANSFERASE (SGPT) (U/L) IN SER/PLAS 105 High 7-52 U/L LAB [id number] ALKALINE PHOSPHATASE (U/L) IN SER/PLAS 555 High 34-104 U/L LAB [id number] PROTEIN (G/DL) I N SER/PLAS 4.1 Low 6.0-8.3 g/dL LAB [id number] ALBUMIN (G/DL) I N SER/PLAS 2.2 Low 3.5-5.7 g/dL LAB [id number] BILIRUBIN TOTAL (MG/DL) IN SER/PLAS 8.7 High 0.3-1.0 mg/dL LAB [id number] GLOMERULAR FILTRATION RATE ML/MIN/1.73 SQ M.PREDICTED 76.3 >60.0 mL/min /1.73m *2 Result Comment: [facility]???s estimated glomerular filtration rate (eGFR) will [...] one group of individuals. Performed By: #### LAB17 ### # [facility] ([facility]) [address] [place] [address] 30 Observed: 07/05/2024 7:26 PM Status: COMPLETED Source: [facility] The patient is Moderately St able - Low risk of patient condition declining or worsening The patient's goals for the shift include Comfort and rest The clinical goals for the shift include VSS and comfort Problem: Pain - Adult Goal: Verbalizes/displays adequate comfort level or baseline comfort level Outcome: ProgressingProblem: Safety - Adult Goal: Free from fall injury Outcome: ProgressingProblem: Discharge Planning Goal: Discharge to home or other facility with appropriate resources Outcome: ProgressingProblem: Chronic Conditions and Co-morbidities Goal: Patient's chronic conditions and co-morbidity symptoms are monitored and maintained or improved Outcome: Progressing PROGRESS Observed: 07/05/2024 3:46 PM Status: COMPLETED Source: [facility] Physical Therapy Physical Therapy Treatment Patient Name: Jenna Kumar : 1945 Today's Date: 07/05/2024 Patient Active Problem List Diagnosis GI bleed Posthemorrhagic anemia Jaundice Primary hypertension Hypokalemia Liver mass Obstructive jaundice (CMS/HCC) Start Time: 1534 Stop Time: 1546 Time Calculation (min): 12 min Objective pt agreeable to participate with therapy @ this time. Upon arrival pt in supine with HOB elevated. General Visit Information: PT Last Visit PT Received On: 07/05/24 General Subjective: pt with reports of having a fever today & not feeling well. pt asking for assist with brief change & to get to the toilet. Session Comments: Upon arrival pt in bed Precautions Precautions Medical Precautions: fall risk, telemetry Pain Pain Assessment Pain Assessment: 0-10 (pt with reports of upper abdominal pain @ 3/10 when upon inhaling during breathing) Cognition Cognition Overall Cognitive Status: Within Functional Limits Arousal/Alertness: Appropriate responses to stimuli Orientation Level: Oriented X4 Following Commands: Follows all commands and directions without difficulty General Assessment Static Sitting Balance Static Sitting Balance Static Sitting-Balance Support: No upper extremity supported, Feet supported Static Sitting-Level of Assistance: Distant supervision Static Sitting-Comment/Number of Minutes: pt on toilet Dynamic Sitting Balance Dynamic Sitting Balance Dynamic Sitting-Balance Support: No upper extremity supported, Feet supported Dynamic Sitting-Balance: Forward lean Dynamic Sitting Balance-Level of Assistance: Distant supervision Dynamic Sitting-Comments: pt on toilet Static Standing Balance Static Standing Balance Static Standing-Balance Support: Right upper extremity supported, Left upper extremity supported, With device (RW) Static Standing-Comment/Number of Minutes: pt dann brief static stand Dynamic Standing Balance Dynamic Standing Balance Dynamic Standing-Balance Support: Unilateral upper extremity supported, With device (RW) Dynamic Standing-Balance: Forward lean, Reaching for objects Dynamic Standing Balance-Level of Assistance: Contact guard Dynamic Standing-Comments: pt dann brief dynamic stand for brief change General Assessments: Activity Tolerance Activity Tolerance Comments: pt amb to bathroom with 1 assist & use of RW Cognition Overall Cognitive Status: Within Functional Limits Arousal/Alertness: Appropriate responses to stimuli Orientation Level: Oriented X4 Following Commands: Follows all commands and directions without difficulty Treatment: Ambulation Ambulation: Yes Ambulation 1 Surface 1: Level tile Device 1: Rolling walker Assistance 1: Contact guard Quality of Gait 1: decrease step length, decrease step height, slow paced gait, no LOB Comments/Distance (ft) 1: 15ftx2 Bed Mobility Bed Mobility: Yes Bed Mobility 1 Bed Mobility From 1: Supine Bed Mobility Type 1: To and from Bed Mobility to 1: Short sit Level of Assistance 1: Close supervision Bed Mobility Comments 1: pt struggles slightly with trunk & bilat LE management however no physical assist required Transfers Transfer: Yes Transfer 1 Transfer From 1: Bed, Toilet Transfer Type 1: To and from Transfer to 1: Bed, Toilet Technique 1: Sit to stand, Stand to sit Transfer Device 1: rolling walker Transfer Level of Assistance 1: Contact guard Trials/Comments 1: pt dann transfer from EOB to toilet to EOB with v.c's for hand placement in bathroom to use rail on wall. Treatment Comments: After therapy pt in bed, call light within pt reach, bed alarm activated Outcome Assessments 6 Clicks (Mobility) Help from another person turning from your back to your side while in a flat bed without using bedrails: A little Help from another person moving from lying on your back to sitting on the side of a flat bed without using bedrails: A little Help from another person moving to and from a bed to a chair (including a wheelchair): A little Help from another person standing up from a chair using your arms (e.g. wheelchair or bedside chair): A little Help from another person to walk in hospital room: A little Help from another person climbing 3-5 steps with a railing: A lot Mobility 6 Clicks T-Score: 17 Assessment/Plan PT Assessment PT Assessment/APPLIED BEHAVIOR SPECIALIST Summary: pt treatment limited by pt not feeling well. pt amb 15 ft x2 with RW & CGA of 1. pt requires assist with brief change. pt could benefit from assist with amb @ this time as pt is a fall risk. pt could benefit from cont therapy to improve her dynamic functional mobility. Evaluation/Treatment Tolerance: Patient limited by fatigue PT Education/Comments: pt educated on the importance of use of call light for assist with mobility. Plan Level of assist: 1 assist Treatment/Interventions: LE strengthening/ROM, Endurance training, Bed mobility, Gait training, Balance training PT Plan: Skilled PT PT Frequency: 5 times per week PT Discharge Recommendations: alf facility placement PT - Discharge Recommendations Placed: Yes Goals: Multi-Disciplinary Problems (from Physical Therapy) Active Problems Problem: PT Misc Start Date: 07/04/24 Goal Start Date Expected End Date End Date Patient will perform bed mobility from flat bed independently without use of bed rails. 07/04/24 07/18/24 -- Goal Start Date Expected End Date End Date Pt to progress seated and standing balance to allow return to prior level of functional activity, ADLs and tasks 07/04/24 07/18/24 -- Goal Start Date Expected End Date End Date Pt to ambulate 150' independently to improve ability to safely navigate home; demonstrating safe/proper use of RW 07/04/24 07/18/24 -- Goal Start Date Expected End Date End Date Stairs as needed to access home, CGA 07/04/24 07/18/24 -- Goal Start Date Expected End Date End Date Pt to perform 45 min session including gait and standing dynamic activities to facilitate return to independent ADLs and tasks; with minimal rest breaks and vitals remaining in normal limits to improve endurance. 07/04/24 07/18/24 -- CONSULT Observed: 07/05/2024 1:45 PM Status: COMPLETED Source: [facility] Attestation signed by Daylin Pizano MD at 07/05/2024 4:49 PM By using the attestations below, the signing clinician agrees that I have read and verify that the documentation has been personally reviewed by me and ensure that the documentation accurately reflects the encounter. GC: I personally saw this patient on the day of the encounter, performed the gan portion(s) of the service and participated in the management and confirm the resident's documentation. Please note there may be an additional personal documentation from me. Additional Comments: E coli bloodstream infection due to biliary sepsis With jaundice and positive Cason 's sign Agree with levaquin anf metronidazole And monitor Qtc interval 481 I agree with above Thank you for allowing me to see the patient Please call for any questions or concerns, Daylin Pizano MD [place] Infectious diseases P:[phone] Infectious Diseases - Initial Consult Note - Patient name: Jenna Kumar Patient Today's Date and Time: 07/05/2024, 1:46 PM Admission Date: 07/01/2024 Impression: Gram-negative bacteremia in the setting of recent biliary stent placement Blood cultures growing Enterobacterales and E. Coli Neither of them show any resistant genes On 06/28 the patient underwent balloon dilatation of the CBD with biopsies followed by 2 biliary stents placement into the left intrahepatic ducts in addition to sphincterectomy Acute leukocytosis, likely due to infection versus reactive Trending from 19 to 20 to 29 in the past 3 days respectively Multiple masses concerning for malignancy including left hepatic mass, mass within the common bile duct, rectal mass Acute blood loss anemia, likely secondary to duodenal ulcer Recommendations: Repeat blood cultures tomorrow to ensure clearing out of the bacteria Continue current antibiotic regimen with Levaquin and metronidazole given her past history of severe penicillin allergy Subjective Reason for consultation / Chief complaint: Gram-negative bacteremia post biliary stent placement Referring Provider: Dr. Driver History of Present Illness Jenna Kumar is an 79 y.o. female transferred from [place] [facility] to [facility] ER when she presented to [place] [facility] for recurrent GI bleed increased fatigue weakness and found to have hemoglobin around 7 and blood pressure was low patient was admitted at [facility] on 06/28/2024 with diagnosis of jaundice pruritus [...] some dyspeptic symptoms pruritus feeling weak fatigue tired Chest pain palpitation PND orthopnea nausea vomiting, vague epigastric discomfort nonradiating unrelated to meals, she has been feeling tired and had slept all day day back today she does get up but was told we cannot stand on for on her face with impact to left cheek, denies syncope or feeling like passing out. Workup in the ER showed sodium 135 potassium 3.3 chloride 108 CO2 19 BUN 30 creatinine 0.66 troponin were negative lipase 95 bilirubin 10.7 alkaline phosphatase 682 ALT 202 INR 1.29 WBC 22.21 hemoglobin 8.1 hematocrit 24.2. Patient blood cultures grew E. coli yesterday and the patient was febrile yesterday as well and max temperature of 38.3. Past Medical History: Past Medical History: Diagnosis Date Anxiety Bundle branch block Heart disease Hypertension Past Surgical History: History reviewed. No pertinent surgical history. Medications: Scheduled: [START ON 07/06/2024] levoFLOXacin, 500 mg, oral, Daily metoprolol tartrate, 12.5 mg, oral, BID metroNIDAZOLE, 500 mg, intravenous, q12h pantoprazole, 40 mg, oral, BID AC Infusions: Social History: Social History Socioeconomic History Marital status: Spouse name: None Number of children: None Years of education: None Highest education level: None Occupational History None Tobacco Use Smoking status: Never Smokeless tobacco: Never Substance and Sexual Activity Alcohol use: Yes Alcohol/week: 2.0 standard drinks of alcohol Types: 2 Glasses of wine per week Drug use: None Sexual activity: None Other Topics Concern None Social History Narrative None Social Determinants of Health Financial Resource Strain: Low Risk (07/02/2024) Overall Financial Resource Strain (CARDIA) Difficulty of Paying Living Expenses: Not hard at all Food Insecurity: No Food Insecurity (07/02/2024) Hunger Vital Sign Worried About Running Out of Food in the Last Year: Never true Ran Out of Food in the Last Year: Not on file Transportation Needs: No Transportation Needs (07/02/2024) Transportation Lack of Transportation (Medical): No Lack of Transportation (Non-Medical): Not on file Physical Activity: Not on file Stress: Not on file Social Connections: Not on file Intimate Partner Violence: Unknown (07/02/2024) Humiliation, Afraid, Rape, and Kick questionnaire Fear of Current or Ex-Partner: No Emotionally Abused: Not on file Physically Abused: Not on file Sexually Abused: Not on file Housing Stability: Low Risk (07/02/2024) Housing Stability Vital Sign Unable to Pay for Housing in the Last Year: No Number of Times Moved in the Last Year: Not on file Homeless in the Last Year: No Family History: No family history on file. Immunization History: There is no immunization history on file for this patient. Allergies: Allergies Allergen Reactions Penicillin Hives Sulfadiazine Hives Review of Systems: Review of Systems Constitutional: Positive for chills and fever. Respiratory: Negative for cough and shortness of breath. Cardiovascular: Negative for chest pain, palpitations and leg swelling. Gastrointestinal: Positive for abdominal pain. Negative for nausea and vomiting. Neurological: Negative for headaches. Objective Physical Examination: BP (!) 111/48 Pulse 90 Temp 36.9 ???C (98.4 ???F) (Oral) Resp 26 Ht 1.626 m (5' 4 ) Wt 72 kg (158 lb 11.7 oz) SpO2 95% BMI 27.25 kg/m??? Temperature Range: Temp: 36.9 ???C (98.4 ???F) Temp Av.4 ???C (99.4 ???F) Min: 36.9 ???C (98.4 ???F) Max: 38.3 ???C (101 ???F) Physical Exam Constitutional: General: She is not in acute distress. Appearance: Normal appearance. HENT: Head: Normocephalic and atraumatic. Nose: Nose normal. Mouth/Throat: Mouth: Mucous membranes are moist. Eyes: General: No scleral icterus. Right eye: No discharge. Left eye: No discharge. Conjunctiva/sclera: Conjunctivae normal. Pupils: Pupils are equal, round, and reactive to light. Cardiovascular: Rate and Rhythm: Normal rate and regular rhythm. Pulses: Normal pulses. Heart sounds: Normal heart sounds. No murmur heard. No friction rub. No gallop. Pulmonary: Effort: Pulmonary effort is normal. No respiratory distress. Breath sounds: Normal breath sounds. No stridor. No wheezing, rhonchi or rales. Abdominal: General: Abdomen is flat. Bowel sounds are normal. There is no distension. Palpations: Abdomen is soft. Tenderness: There is abdominal tenderness (Scattered most pronounced in the right upper quadrant). There is guarding (Right upper quadrant and epigastric guarding suggestive of Cason sign). There is no rebound. Musculoskeletal: General: Normal range of motion. Cervical back: Normal range of motion. Right lower leg: No edema. Left lower leg: No edema. Skin: General: Skin is warm and dry. Coloration: Skin is jaundiced and pale. Neurological: General: No focal deficit present. Mental Status: She is alert and oriented to person, place, and time. Psychiatric: Mood and Affect: Mood normal. Behavior: Behavior normal. Thought Content: Thought content normal. Labs: Results from last 7 days Lab Units 07/05/24 0359 07/04/24 0635 07/03/24 0713 07/02/24 2104 07/02/24 1417 WBC AUTO 10*3/uL 29.48* 20.22* 19.30* -- 19.51* HEMOGLOBIN g/dL 8.6* 8.9* 8.9* 8.9* < > 9.2* HEMATOCRIT % 27.2* 27.7* 27.2* 27.3* < > 27.8* MCV fL 90.7 87.9 84.7 -- 84.0 PLATELETS AUTO 10*3/uL 261 281 266 -- 262 NEUTROS ABS 10*3/uL -- 16.8* 16.0* -- 16.8* EOS ABS MAN 10*3/uL -- 0.95* 0.14 -- 0.51* BASOS ABS MAN 10*3/uL -- 0.14 0.00 -- 0.00 < > = values in this interval not displayed. Results from last 7 days Lab Units 07/05/24 03507/04/24 0635 07/03/24 0923 POTASSIUM mmol/L 3.5 4.0 3.2* CHLORIDE mmol/L 103 104 105 CO2 mmol/L 25 24 21 BUN mg/dL 17 16 20 CREATININE mg/dL 0.86 0.76 0.72 CALCIUM mg/dL 7.5* 7.7* 7.6* TOTAL PROTEIN g/dL 4.1* 4.3* 4.2* BILIRUBIN TOTAL mg/dL 8.7* 8.8* 9.5* ALK PHOS U/L 649* 800* 746* ALT U/L 130* 154* 168* AST U/L 128* 145* 158* No lab exists for component: PROCALCITON Results from last 7 days Lab Units 07/02/24 0037 GLUCOSE U MG/DL mg/dL Normal UROBILINOGEN URINE mg/dL 2.0* BILIRUBIN U Small* WBC UR HPF /HPF 6-10* Imaging Studies: I have reviewed myself the following imaging studies performed in the past 3 days: No X-ray results found for the past [address] results found for the past 3 days No MRI results found for the past 3 days Cultures: No results found for: BLOOD CULTURE , URINE CULTURE , WOUND CULTURE , CSF CULTURE , TISSUE CULTURE ONLY Results for orders placed or performed during the hospital encounter of 07/01/24 Blood culture, peripheral #1 Specimen: Blood, Venous Result Value Ref Range Gram Stain Result Aerobic Bottle Yields Gram negative bacilli (A) Thank you for allowing us to participate in the care of this patient. Kavon Luciano MD [facility] Infectious Diseases Please contact us via [employer] during business hours. If no response in 15 min, call / page through the paradi operator PROGRESS Observed: 07/05/2024 1:39 PM Status: COMPLETED Source: [facility] Occupational Therapy Occupational Therapy Evaluation Patient Name: Jenna Kumar : 1945 Today's Date: 07/05/2024 Discharge Recommendation: SNF (potential to go home if activity tolerance improves) 79 y/o F transferred from [facility] to [facility] with recurrent GI bleed, fatigue, weakness, anemia, and hypotension. Initiated session with pt supine in bed, supine to sit, sitting EOB tolerates ROM and MMT, donns B socks, sit to stand, functional mobility with RW to toilet, seated BM and urination, sit to stand, marisela hygiene, to EOB, stand to sit, sit to supine. Concluded session with pt supine in bed with call light in reach. RN approved pt for OOB activity this date and pt agreeable. OTR was present and assisting throughout session. Time In: 1259 Time Out: 1323 General Subjective: Pt pleasant and cooperative, friendly Family/Caregiver Present: No Patient Active Problem List Diagnosis GI bleed Posthemorrhagic anemia Jaundice Primary hypertension Hypokalemia Liver mass Obstructive jaundice (CMS/HCC) Past Medical History: Diagnosis Date Anxiety Bundle branch block Heart disease Hypertension History reviewed. No pertinent surgical history. Precautions Precautions Medical Precautions: fall risk, telemetry Pain Pain Assessment Pain Assessment: No/denies pain Cognition Cognition Overall Cognitive Status: Within Functional Limits General Assessment General Assessment Hearing: Intact Home Living Home Living Type of Home: House Lives With: Spouse Home Adaptive Equipment: None Home Layout: One level Home Access: Stairs to enter with rails Entrance Stairs-Number of Steps: 2 Bathroom Shower/Tub: Tub/shower unit Bathroom Toilet: Standard Bathroom Equipment: None Prior Level of Function Prior Function Level of [place]: Independent with ADLs and functional transfers, Independent with homemaking with ambulation (Drives) Prior Functional Mobility: Independent without device Prior IADLs Static Sitting Balance Static Sitting Balance Static Sitting-Balance Support: Feet supported Static Sitting-Level of Assistance: Independent Dynamic Sitting Balance Dynamic Sitting Balance Dynamic Sitting-Balance Support: Feet supported Dynamic Sitting-Balance: Forward lean, Reaching for objects Dynamic Sitting Balance-Level of Assistance: Independent Static Standing Balance Static Standing Balance Static Standing-Balance Support: Right upper extremity supported, Left upper extremity supported, With device (RW) Static Standing-Level of Assistance: Close supervision Dynamic Standing Balance Dynamic Standing Balance Dynamic Standing-Balance Support: Right upper extremity supported, Left upper extremity supported, With device (RW) Dynamic Standing-Balance: Forward lean, Reaching for objects Dynamic Standing Balance-Level of Assistance: Contact guard ADL ADL Eating Assistance: Independent Grooming Assistance: Stand by Bathing Assistance: Moderate UE Dressing Assistance: Stand by UE Dressing Deficit: (gown managment) LE Dressing Assistance: Moderate LE Dressing Deficit: Don/doff R sock, Don/doff L sock Toileting Assistance with Device: Moderate Toileting Deficit: Perineal hygiene (Brief managment) Bed Mobility Bed Mobility Bed Mobility: Yes Bed Mobility 1 Bed Mobility From 1: Supine Bed Mobility Type 1: To and from Bed Mobility to 1: Short sit Level of Assistance 1: Minimum assistance Bed Mobility Comments 1: Min A with trunk Transfers Transfers Transfer: Yes Transfer 1 Transfer From 1: Bed Transfer Type 1: To and from Transfer to 1: Toilet Technique 1: Sit to stand, Stand to sit Transfer Device 1: rolling walker Transfer Level of Assistance 1: Contact guard Objective General Assessments Activity Tolerance Endurance: Stage III Activity Tolerance Comments: Pt reports continueing to feel more fatigued than baseline. 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) Coordination: Functional Extremity Assessments RUE Assessment RUE Assessment: Exceptions to WFL RUE Strength R Hand Buggyman Strength: WFL R Shoulder Flexion: 4-/5 R Elbow Extension: 4-/5 R Forearm Pronation: 4-/5 LUE Assessment LUE Assessment: Exceptions to WFL LUE Strength L Hand Buggyman Strength: 3+/5 L Shoulder Flexion: 4-/5 L Elbow Flexion: 4-/5 L Elbow Extension: 4-/5 Outcome Assessments AM-PAC 6 Clicks Putting on and taking off regular lower body clothing?: A Lot (Mod/Max Assist) Bathing(Including washing,rinsing,drying)?: A Lot (Mod/Max Assist) Toileting, which includes using the toilet,bedpan,or urinal?: A Lot (Mod/Max Assist) Putting on and taking off regular upper body clothing?: A Little (Min Assist/Contact Guard/Supervision) Taking care of personal grooming such as brushing teeth?: A Little (Min Assist/Contact Guard/Supervision) Eating meals?: None (Independent) Total Score OT [facility]: 16 Assessment/Plan OT Assessment OT Impairments: Decreased ADL status, Decreased upper extremity strength, Decreased endurance, Decreased functional mobility, Decreased IADLs, Decreased trunk control for functional activities OT Assessment/FLORENCIO Summary: Pt demos decreased activity tolerance inhibiting performance in bathing, dressing, and mobility Prognosis: Good Evaluation/Treatment Tolerance: Patient tolerated treatment well, Patient limited by fatigue Medical Staff Made Aware: Yes OT Education/Comments: OT POC, transfer training Plan Level of assist: 1 assist Treatment Interventions: ADL retraining, Functional transfer training, UE strengthening/ROM, Endurance training, Patient/family training, Equipment evaluation/education, Neuromuscular reeducation, Compensatory technique education OT Plan: Skilled OT OT Frequency: 5 times per week OT Discharge Recommendations: alf facility placement (Potential for home if activity tolerance improves) OT - Discharge Recommendations Placed: Yes OT Goals Multi-Disciplinary Problems (from Occupational Therapy) Active Problems Problem: Balance Start Date: 07/05/24 Goal Start Date Expected End Date End Date LTG - Patient will demo Mod I standing and sitting balance to allow for completion of daily activities 07/05/24 07/18/24 -- Problem: Bathing Start Date: 07/05/24 Goal Start Date Expected End Date End Date LTG - Patient will utilize adaptive techniques to bathe body with modified independent 07/05/24 07/18/24 -- Problem: Dressings Lower Extremities Start Date: 07/05/24 Goal Start Date Expected End Date End Date LTG - Patient will utilize adaptive techniques/equipment to dress lower body with modified independent 07/05/24 07/18/24 -- Problem: Dressing Upper Extremities Start Date: 07/05/24 Goal Start Date Expected End Date End Date STG - Patient will ambulate to closet to retrieve clothing with modified independent 07/05/24 07/18/24 -- Problem: Grooming Start Date: 07/05/24 Goal Start Date Expected End Date End Date LTG - Patient will utilize adaptive techniques/equipment to complete daily grooming activities with modified independent 07/05/24 07/18/24 -- Problem: Toileting Start Date: 07/05/24 Goal Start Date Expected End Date End Date LTG - Patient will utilize adaptive techniques/equipment to complete daily toileting tasks with modified independent 07/05/24 07/18/24 -- Problem: Transfers Start Date: 07/05/24 Goal Start Date Expected End Date End Date LTG - Patient will transfer from bed<>chair/toilet with modified independent using LRAD 07/05/24 07/18/24 -- Problem: OT Misc Start Date: 07/05/24 Goal Start Date Expected End Date End Date Pt will increase activity tolerance to engage in at least 20-30 minutes of dynamic seated/standing activity with no more than min rest breaks PRN. 07/05/24 07/18/24 -- Goal Start Date Expected End Date End Date Pt will increase BUE strength at least 1/2 grade for increased I in transfers, mobility, and ADLs. 07/05/24 07/18/24 -- PROGRESS Observed: 07/05/2024 1:02 PM Status: COMPLETED Source: [facility] Met with pt to follow up wit h SNF choice. Pt said she would only consider [facility] [place]. Sent referral. Pt has no preference for [facility], sent referral to Jabari Gomez [facility]. Await replies. Pt is having a colonoscopy on Monday. LACTATE DEHYDROGENASE Collected: 07/05/2024 12:28 PM Status: UNK Source: [facility] TYPE CODE TESTS RESULT OUT OF RANGE REFERENCE UNITS LAB [id number] LACTATE DEHYDROGENASE (U/L) IN SER/PLAS BY LAC->PYR RXN 136 Low 140-271 U/L Performed By: #### [id number] ### # [facility] ([facility]) [address] [place] [address] 30 Observed: 07/05/2024 11:46 AM Status: COMPLETED Source: [facility] Daily Case Management Update Multidisciplinary rounds have been completed. 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 Bcx pending. PT=SNF, await OT; SW following for dc plan. Diet: Dietary Orders (From admission, onward) Start Ordered 07/04/24 1623 Special Kitchen Request Once Comments: X2 grapes x2 V8 juice 07/04/24 1623 07/03/24 1010 Regular Diet Diet effective now Question: Room Service? Answer: Yes 07/03/24 1009 07/02/24 1847 Special Kitchen Request Once Comments: Fruit cup, fresh fruit, auto fill remainder of tray 07/02/24 1846 Physician Expected Discharge Date: 07/08/2024 Discharge Delays: PT Six Click Score: 14 OT Six Click Score: PT Recommendations: alf facility placement (Potential for home discharge if activity tolerance improves to allow safe household mobility) OT Recommendations: New Consults: Consult Orders (From admission, onward) Start Ordered 07/05/24 1139 Inpatient consult to Infectious Diseases Once Specialty: Infectious Diseases Provider: (Not yet assigned) Question Answer Comment [facility] INFECTIOUS DISEASE TEAM Reason for Consult? Gram-negative bacteremia post biliary stent placement, Level of Consultation Consultation and Management 07/05/24 1138 07/01/24 214 Inpatient consult to Hospitalist Once Specialty: Internal Medicine Provider: (Not yet assigned) Question Answer Comment [facility] HOSPITALIST (ADMIT/FLOAT) Reason for Consult? GI bleed Level of Consultation Consultation and Management 07/01/24 2140 07/01/24 213 Inpatient consult to Gastroenterology Once Specialty: Gastroenterology Provider: (Not yet assigned) Question Answer Comment [facility] GASTROENTEROLOGY TEAM Reason for Consult? GI bleed Level of Consultation Consultation and Management 07/01/242134 Therapy Orders (From admission, onward) Start Ordered 07/05/24 0920 OT eval and treat Until therapy completed Question: Reason for OT? Answer: eval and tx 07/05/24 0919 07/04/24 1023 PT eval and treat Until therapy completed Question: Reason for PT? Answer: pt says she is weak and cant be dc 07/04/24 1022 PROGRESS Observed: 07/05/2024 11:35 AM Status: COMPLETED Source: [facility] Medicine Daily Progress Note - 07/05/2024 11:35 AM; Room: [address] [place] [address] Admission: 07/01/2024 9:06 PM; Length of stay: 4 days THE HOSPITALIST TEAM PREFERS TO USE [employer] FOR NON-URGENT COMMUNICATION 7AM-7PM. IF I DO NOT RESPOND WITHIN 20 MINUTES OR URGENT MATTERS, PLEASE CALL THROUGH THE SCREEN STRETCHER. FROM 7PM-7AM, PLEASE PAGE [phone](COVR). Code Status: Full Code Barriers to Discharge: Discharge planning on , pending GI evaluation/colonoscopy on Monday to further explain the source of Liver mass, Expected Discharge Date:07/07, post colonoscopy and GI clearance Discharge Destination: home Overview Patient is seen for evaluation and management of melena, generalized weakness. Subjective Patient was seen and examined at bedside this morning. She was alert awake and oriented. He denied any active complaints. Patient stated she had a small smear of stool, which was still dark this morning. And is tolerating regular diet. Today patient stated she has not been feeling well, denies any fever/chills. She has a low-grade fever of 100 Fahrenheit. Physical Exam Visit Vitals BP 103/56 Pulse 77 Temp 36.9 ???C (98.4 ???F) (Oral) Resp 18 Intake/Output Summary (Last 24 hours) at 07/05/2024 1135 Last data filed at 07/05/2024 0548 Gross per 24 hour Intake 1140 ml Output -- Net 1140 ml Physical Exam Constitutional: Appearance: Normal appearance. Eyes: General: Scleral icterus present. Cardiovascular: Rate and Rhythm: Normal rate and regular rhythm. Pulses: Normal pulses. Heart sounds: Normal heart sounds. Pulmonary: Effort: Pulmonary effort is normal. Breath sounds: Normal breath sounds. Abdominal: General: Abdomen is flat. Palpations: Abdomen is soft. Skin: General: Skin is warm. Neurological: General: No focal deficit present. Mental Status: She is alert and oriented to person, place, and time. Estimated body mass index is 27.25 kg/m??? as calculated from the following: Height as of this encounter: 1.626 m (5' 4 ). Weight as of this encounter: 72 kg (158 lb 11.7 oz). Active Inpatient Problems Principal Problem: GI bleed Active Problems: Posthemorrhagic anemia Primary hypertension Hypokalemia Liver mass Obstructive jaundice (CMS/HCC) Assessment and Plan #Gram-negative bacteremia with recent biliary stent placement, growing E. coli, presently Levaquin and Flagyl,, will seek an input from infectious disease regarding antibiotics management and duration, repeat blood cultures in 24 hours for bacteremia clearance. Acute blood loss anemia secondary to duodenal ulcer Patient's hemoglobin dropped to 8.1, received 2 PRBC transfusions. EGD performed on 07/02 showed a small duodenal ulcer with active oozing, likely caused by direct pressure from biliary stent on duodenal wall. The stent has been repositioned. Hemostasis achieved. 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 Balloon dilatation of CBD followed by brushing and biopsies were performed, 2 biliary stents placed into left intrahepatic ducts after sphincterotomy , Continue to monitor LFTs closely, Biopsy results pending. Rectal mass concerning for adenocarcinoma Flexible sigmoidoscopy on 06/28 showed 5 cm circumferential polypoid rectal mass extends from the dentate line, involving rectal folds, biopsies obtained, Discussed with GI team, planning for colonoscopy on Monday for further evaluation for liver mass/malignancy?Plan for rectal MRI as an outpatient, Leukocytosis likely reactive in the setting of recent stenting and possible malignancy Primary hypertension Hold losartan as patient's blood pressure is borderline. Continue Lopressor at a lower dose of 12.5 mg twice a day. Hypokalemia Supplementation ordered VTE Prophylaxis: Contraindicated due to GI bleed Scheduled Meds cefTRIAXone, 2 g, intravenous, q24h metoprolol tartrate, 12.5 mg, oral, BID metroNIDAZOLE, 500 mg, intravenous, q12h pantoprazole, 40 mg, oral, BID AC Pertinent Investigations Hematology: Results from last 7 days Lab Units 07/05/24 0359 07/04/24 0635 07/02/24 2104 07/02/24 1417 07/02/24 0356 07/01/24 2159 WBC AUTO 10*3/uL 29.48* 20.22* < > 19.51* -- 22.21* HEMOGLOBIN g/dL 8.6* 8.9* < > 9.2* < > 8.1* HEMATOCRIT % 27.2* 27.7* < > 27.8* < > 24.2* MCV fL 90.7 87.9 < > 84.0 -- 89.0 PLATELETS AUTO 10*3/uL 261 281 < > 262 -- 259 INR -- -- -- 1.28* -- 1.29* < > = values in this interval not displayed. Chemistry: Results from last 7 days Lab Units 07/05/24 03507/04/24 0635 07/03/24 0923 SODIUM mmol/L 132* 132* 133* POTASSIUM mmol/L 3.5 4.0 3.2* CHLORIDE mmol/L 103 104 105 CO2 mmol/L 25 24 21 BUN mg/dL 17 16 20 CREATININE mg/dL 0.86 0.76 0.72 GLUCOSE mg/dL 110* 106* 128* MAGNESIUM mg/dL -- 1.7* 1.7* CALCIUM mg/dL 7.5* 7.7* 7.6* Results from last 7 days Lab Units 07/05/24 03507/04/24 0635 07/03/24 0923 07/02/24 0553 07/01/24 2159 AST U/L 128* 145* 158* 173* 192* ALT U/L 130* 154* 168* 178* 202* ALK PHOS U/L 649* 800* 746* 613* 682* BILIRUBIN TOTAL mg/dL 8.7* 8.8* 9.5* 10.5* 10.7* BILIRUBIN DIRECT mg/dL 5.2* 5.1* 5.7* -- 6.1* LIPASE U/L -- -- -- 56 95* Results from last 7 days Lab Units 06/28/24 1254 POCT GLUCOSE mg/dL 96 Historical Values: (Includes values prior to this admission) No results found for: PREALBUMIN , TSH , T3FREE , FREET4 , CORTISOL , FEV1 , DDP8VYY , DLCO , RVSP , HDL , LDL Lab Results Component Value Date ,533 (H) 07/04/2024 IRON 84 07/04/2024 TIBC 188 (L) 07/04/2024 CEA 2.2 07/04/2024 Imaging EGD Table formatting from the original result was not included. Esophagogastroduodenoscopy (EGD) Procedure Note Procedure: EGD with endoscopic management of bleeding ulcer. Indications: 79 y.o. female who was admitted with melena. The patient was recently seen for the history of obstructive jaundice. She had an ERCP with endoscopic ultrasound, fine-needle aspiration and biliary sphincterotomy with biliary stent placement on June 28, 2024. LFTs have been slowly improving. She also had a rectal mass that was biopsied. The patient is scheduled to have an EGD to assess a potential source for melena. Sedation: MAC Medications: EPINEPHrine (Adrenalin) 1 mg/10mL injection 10 mL (Totals for administrations occurring from 1737 to 1826 on 07/02/24) Attending Physician: Bradley Díaz MD Procedure Details: Informed consent was obtained for the procedure, including sedation. Risks of infection, perforation, hemorrhage, adverse drug reaction, and aspiration were discussed. The patient was placed in the left lateral decubitus position. The patient was monitored continuously with ECG tracing, pulse oximetry, blood pressure monitoring, and direct observation. The gastroscope was inserted into the mouth and advanced under direct vision to second portion of the duodenum. A careful inspection was made as the gastroscope was withdrawn, including a retroflexed view of the proximal stomach; findings and interventions are described below. Appropriate photodocumentation was obtained. Findings: The examination of the esophagus and the stomach were unremarkable. No blood was identified within the esophagus or the stomach. The examination of the duodenal bulb was unremarkable. The examination of the second part of the duodenum revealed to plastic biliary stent protruding through the papilla into the duodenal lumen. One of the stent was abutting the opposite duodenal wall causing small ulceration that was oozing small amount of blood. The stent position was readjusted using rat-tooth forceps. 3 hemoclips were deployed at the site of bleeding followed by injection of 10 mL of 1 in 10,000 epinephrine. Complete hemostasis was achieved. Specimens: No specimens collected Complications: None Estimated blood loss: Minimal Disposition: Home Condition: stable Impression: Small duodenal ulcer oozing blood caused by a direct pressure of the biliary stent on the opposite wall of the second part of the duodenum. The position of the stent was adjusted away from the duodenum wound and the site of the bleeding was clipped with. Hemoclips and injected with epinephrine. Complete hemostasis was achieved. The site of the sphincterotomy was unremarkable and bile was noted draining from the common bile duct as as well as from the biliary stents. Recommendations: Start clear liquid diet. Start IV PPI. Follow-up H&H Awaiting histopathology results from previous ERCP/EUS and flexible sigmoidoscopy with biopsies. Further plan depends upon the histopathology results. Attending Attestation: I performed the procedure. Discharge Planning Expected Discharge Disposition: Home or Self Care () PT Discharge Recommendations: alf facility placement (Potential for home discharge if activity tolerance improves to allow safe household mobility) Signed Camron Driver MD [facility] Medicine 07/05/2024 11:35 AM PROGRESS Observed: 07/05/2024 8:43 AM Status: COMPLETED Source: [facility] Teaching GI Service Con sult Gastroenterology/Hepatology Progress Note IDENTIFYING DATA PATIENT: Jenna Kumar ADMIT DATE: 07/01/2024 TIME OF EVALUATION: 07/05/2024 8:44 AM HOSPITAL STAY: LOS: 4 days REASON FOR HOSPITALIZATION: Hematochezia SUBJECTIVE/INTERVAL HISTORY Jenna Kumar's overnight events were reviewed. The patient is resting in bed and reports improvement in nausea and appetite. She is having brown bowel movements with scant blood on wiping. Hemoglobin is 8.6, down from 8.9, and WBC is 29.48, up from 20.22. The patient is positive for E. coli bacteremia. Liver function tests are trending down. The plan for colonoscopy on Monday was reviewed, and the patient verbalized understanding and agreement. OBJECTIVE MEDICATIONS SCHEDULED: @MEDSCURRENTMD@ PRNs: ondansetron, 4 mg, q6h PRN Physical VITALS: BP 103/56 Pulse 77 Temp 36.9 ???C (98.4 ???F) (Oral) Resp 18 Ht 1.626 m (5' 4 ) Wt 72 kg (158 lb 11.7 oz) SpO2 96% BMI 27.25 kg/m??? GEN: Alert and oriented x3, NAD HEENT: Atraumatic, normocephalic CV: No edema visualized PULM: Respirations even and unlabored ABD: Soft, non-tender, non-distended NEURO: Moves all 4 extremities spontaneously, answers questions appropriately LABS AND IMAGING CBC: Lab Results Component Value Date WBC 20.22 (H) 07/04/2024 RBC 3.15 (L) 07/04/2024 HGB 8.9 (L) 07/04/2024 HCT 27.7 (L) 07/04/2024 MCV 87.9 07/04/2024 RDW 23.9 (H) 07/04/2024 PLT 281 07/04/2024 CMP: Lab Results Component Value Date NA 132 (L) 07/04/2024 K 4.0 07/04/2024 CL 104 07/04/2024 CO2 24 07/04/2024 BUN 16 07/04/2024 PROT 4.3 (L) 07/04/2024 IMAGING: Esophagogastroduodenoscopy (EGD) Procedure Note 07/03/2024 Impression: Small duodenal ulcer oozing blood caused by a direct pressure of the biliary stent on the opposite wall of the second part of the duodenum. The position of the stent was adjusted away from the duodenum wound and the site of the bleeding was clipped with. Hemoclips and injected with epinephrine. Complete hemostasis was achieved. The site of the sphincterotomy was unremarkable and bile was noted draining from the common bile duct as as well as from the biliary stents. Recommendations: Start clear liquid diet. Start IV PPI. Follow-up H&H Awaiting histopathology results from previous ERCP/EUS and flexible sigmoidoscopy with biopsies. Further plan depends upon the histopathology results. ASSESSMENT AND PLAN Jenna Kumar is a 79 y.o. female with a history of left bundle branch block, transferred for evaluation of new-onset gastrointestinal bleeding and progressive fatigue. She initially presented with jaundice, white stools, and dark urine in early June, prompting workup revealing cholestasis and hepatic dysfunction. 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 Endoscopic evaluation on 06/28/2024, including ERCP with balloon dilation and stent placement, revealed a high-grade hilar stricture, a large hepatic mass, and a common hepatic duct mass. Post-procedure, she developed worsening fatigue, anorexia, pruritus, dark yellow urine, and recurrent dark red rectal bleeding. 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 EGD with EUS/ERCP on 06/28/2024 revealed a high-grade hilar stricture with a diffusely dilated left intrahepatic biliary system. The right intrahepatic ducts could not be opacified. Biopsy results positive for adenocarcinoma. Large Left Hepatic Mass and Mass Within the Common Hepatic Duct Rectal Mass A 5 cm circumferential polypoid rectal mass extends from the dentate line, involving rectal folds. 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 Acute Blood Loss Anemia The patient experienced dark red rectal bleeding accompanied by worsening fatigue. Hemoglobin levels declined to 8.1 g/dL, necessitating the transfusion of 2 units of packed red blood cells (PRBCs). An EGD performed on 07/02/2024 identified a small duodenal ulcer with active oozing, likely caused by direct pressure from the biliary stent on the duodenal wall. The stent was repositioned to alleviate pressure, and endoscopic hemostasis was successfully achieved using hemoclips and epinephrine injection. The sphincterotomy site appeared unremarkable, and bile was draining appropriately from the common bile duct and biliary stents. E. Coli Bacteremia with Leukocytosis White blood cell count is elevated at 22.21. Recent biliary stent placement. Plan: Tentatively plan for colonoscopy with biopsy on 07/08/2024 for further assessment of rectal mass, pending clinical course OK for a regular diet from a GI perspective, will transition to a clear liquid diet on 07/06/2023, and begin the 2-day prep. Continue Protonix 40 mg BID Trend LFT's. Trend H&H and transfuse as needed Monitor for overt bleeding Hemonc on board, appreciate recommendations. Medical management per primary. The case will be discussed with the attending physician For Questions please contact us at: [place] [facility] 6 am to 4 pm weekdays in house Phone extension: [phone] 4 pm to 6 am or weekends please contact the paradi operator to page the fellow applications support lead PROGRESS Observed: 07/05/2024 4:14 AM Status: COMPLETED Source: [facility] Antimicrobial Stewardship Po sitive Blood Culture Documentation Pharmacist notified of positive blood culture. 1 of 2 blood culture sets drawn on 07/04 growing gram-negative bacilli identified as E coli The organism does not have identified resistance markers Contacted Dr Maddox at 07/05 @4963. Received response at 0410 Plan: Patient last received cefepime LD at 1734 and ceftriaxone at 1551. No current antibiotic regimen except for flagyl. Will start 2g of ceftriaxone daily for E coli bacteremia and keep flagyl for possible GI/hepatic source HEPATIC FUNCTION PANEL Collected: 07/05/2024 3:59 AM Status: UNK Source: [facility] TYPE CODE TESTS RESULT OUT OF RANGE REFERENCE UNITS LAB [id number] BILIRUBIN TOTAL (MG/DL) IN SER/PLAS 8.7 High 0.3-1.0 mg/dL LAB [id number] BILIRUBIN DIRECT (MG/DL) IN SER/PLAS 5.2 High 0-0.2 mg/dL LAB [id number] ALKALINE PHOSPHA TASE (U/L) IN SER/PLAS 649 High 34-104 U/L LAB [id number] ASPARTATE AMINOTRANSFERASE (SGOT) (U/L) IN SER/PLAS 128 High 13-39 U/L LAB [id number] ALANINE AMINOTRANSFERASE (SGPT) (U/L) IN SER/PLAS 130 High 7-52 U/L LAB [id number] PROTEIN (G/DL) I N SER/PLAS 4.1 Low 6.0-8.3 g/dL LAB [id number] ALBUMIN (G/DL) I N SER/PLAS 2.2 Low 3.5-5.7 g/dL Performed By: #### [id number] ### # [facility] ([facility]) [address] [place] [address] BASIC METABOLIC PANEL Collected: 2024 3:59 AM Status: UNK Source: [facility] TYPE CODE TESTS RESULT OUT OF RANGE REFERENCE UNITS LAB [id number] SODIUM (MMOL/L) IN SER/PLAS 132 Low 136-145 mmol/L LAB [id number] POTASSIUM (MMOL/L) IN SER/PLAS 3.5 3.5-5.1 mmol/L LAB [id number] CHLORIDE (MMOL/L) IN SER/PLAS 103 98-107 mmol/L LAB [id number] CARBON DIOXIDE, TOTAL (MMOL/L) IN SER/PLAS 25 21-31 mmol/L LAB [id number] UREA NITROGEN (MG/DL) IN SER/PLAS 17 7-25 mg/dL LAB [id number] CREATININE (MG/DL) IN SER/PLAS 0.86 0.60-1.20 mg/dL LAB [id number] GLUCOSE (MG/DL) IN SER/PLAS 110 High 70-100 mg/dL LAB [id number] CALCIUM (MG/DL) IN SER/PLAS 7.5 Low 8.6-10.3 mg/dL LAB [id number] ANION GAP IN SER/PLAS 8 7-20 mmol/L LAB [id number] GLOMERULAR FILTRATION RATE ML/MIN/1.73 SQ M.PREDICTED 67.8 >60.0 mL/min/ 1.73m*2 Result Comment: [facility]???s estimated glomerular filtration rate (eGFR) will [...] disproportionately affect any one group of individuals. LAB [id number] UREA NITROGEN/CREA TININE (MASS RATIO) IN SER/PLAS 19.8 NA Performed By: #### [id number] ### # [facility] ([facility]) [address] [place] [address] CBC Collected: 07/05/2024 3:59 AM Status: UN K Source: [facility] TYPE CODE TESTS RESULT OUT OF RANGE REFERENCE UNITS LAB [id number] LEUKOCYTES(10*3/ U L) IN BLOOD BY AUTOMATED COUNT 29.48 High 4.00-10.60 10*3/uL LAB [id number] ERYTHROCYTES (10*6/UL) IN BLOOD BY AUTOMATED COUNT 3.00 Low 3.80-5.00 10*6/uL LAB [id number] HEMOGLOBIN (G/DL ) IN BLOOD 8.6 Low 12.0-15.0 g/dL LAB [id number] HEMATOCRIT (%) I N BLOOD BY AUTOMATED COUNT 27.2 Low 36.0-48.0 % LAB [id number] ERYTHROCYTE MEAN CORPUSCULAR VOLUME (FL) BY AUTOMATED COUNT 90.7 82.0-98.0 fL LAB [id number] ERYTHROCYTE MEAN CORPUSCULAR HEMOGLOBIN (PG) BY AUTOMATED COUNT 28.7 27.0-33.0 pg LAB [id number] ERYTHROCYTE MEAN CORPUSCULAR HEMOGLOBIN CONCENTRATION (G/DL) BY AUTOMATED 31.6 Low 32.0-35.0 g/dL LAB [id number] ERYTHROCYTE DISTRIBUTION WIDTH (RATIO) BY AUTOMATED COUNT 24.0 High 11.5-15.0 % LAB [id number] PLATELETS (10*3/UL) IN BLOOD AUTOMATED COUNT 261 150-400 10*3/uL Performed By: #### [id number] ## ## [facility] ([facility]) [address] [place] [address] RETICULOCYTE PANEL Collected: 07/05/2024 3:59 AM Sta tus: UNK Source: [facility] TYPE CODE TESTS RESULT OUT OF RANGE REFERENCE UNITS LAB [id number] RETICULOCYTES (10*6/UL) IN BLOOD 0.2965 High 0.0250-0.100 0 10*6/uL LAB [id number] RETICULOCYTES/10 0 ERYTHROCYTES IN BLOOD BY AUTOMATED COUNT 9.69 High 0.50-1.80 % LAB 382 IMMATURE RETICULOCYTE FRACTION (%) 34.0 High 2-16 % LAB 923 HEMOGLOBIN (PG) IN RETICULOCYTES 36.6 High 28.0-36.0 pg Performed By: #### [id number] ## ## [facility] ([facility] [address] [place] [address] 30 Observed: 07/04/2024 10:34 PM Status: COMPLETED Source: [facility] The patient is Moderately St able - Low risk of patient condition declining or worsening The patient's goals for the shift include Comfort and rest The clinical goals for the shift include VSS and comfort Problem: Pain - Adult Goal: Verbalizes/displays adequate comfort level or baseline comfort level Outcome: ProgressingProblem: Safety - Adult Goal: Free from fall injury Outcome: ProgressingProblem: Chronic Conditions and Co-morbidities Goal: Patient's chronic conditions and co-morbidity symptoms are monitored and maintained or improved Outcome: Progressing NURSNOTE Observed: 07/04/2024 10:12 PM Status: COMPLETED Source: [facility] Patient Name: Jenna Davis beau : 1945 Primary Care Physician: Mayito Costello DO Admission Date: 07/01/2024 RAPID RESPONSE TEAM DETERIORATION INDEX FOLLOW-UP NOTE SUBJECTIVE / OBJECTIVE: Follow-up on 07/04/2024 at 1930 for Deterioration Index alert . Predictive Model Details 54 (Medium) Factor Value Calculated 07/04/2024 22:03 Respiratory rate 27 Deterioration Index Model Age [age] years old Neurological exam X Cardiac rhythm NSR WBC count abnormal (20.22 10*3/uL) Systolic 100 Sodium abnormal (132 mmol/L) Pulse oximetry 91 % Hematocrit abnormal (27.7 %) Pulse 90 Potassium 4.0 mmol/L Temperature 37 ???C (98.6 ???F) ASSESSMENT / INTERVENTIONS: Recent Vital Signs: Vitals: 07/04/24 1724 07/04/24 1731 07/04/24 1740 07/04/241999 BP: 146/84 (!) 153/48 100/51 BP Location: Left arm Patient Position: Lying Pulse: 110 (!) 111 109 90 Resp: 12 (!) 42 (!) 40 (!) 27 Temp: 37 ???C (98.6 ???F) TempSrc: Oral SpO2: 99% 95% 92% 91% Weight: Height: Latest Labs: Lab Results Component Value Date WBC 20.22 (H) 07/04/2024 WBC 19.30 (H) 07/03/2024 HGB 8.9 (L) 07/04/2024 HGB 8.9 (L) 07/03/2024 HGB 8.9 (L) 07/03/2024 HCT 27.7 (L) 07/04/2024 HCT 27.3 (L) 07/03/2024 HCT 27.2 (L) 07/03/2024 MCV 87.9 07/04/2024 MCV 84.7 07/03/2024 PLT 281 07/04/2024 PLT 266 07/03/2024 NEUTROABS 16.8 (H) 07/04/2024 NEUTROABS 16.0 (H) 07/03/2024 Lab Results Component Value Date GLUCOSE 106 (H) 07/04/2024 GLUCOSE 128 (H) 07/03/2024 CALCIUM 7.7 (L) 07/04/2024 CALCIUM 7.6 (L) 07/03/2024 NA 132 (L) 07/04/2024 NA 133 (L) 07/03/2024 K 4.0 07/04/2024 K 3.2 (L) 07/03/2024 CO2 24 07/04/2024 CO2 21 07/03/2024 CL 104 07/04/2024 CL 105 07/03/2024 BUN 16 07/04/2024 BUN 20 07/03/2024 CREATININE 0.76 07/04/2024 CREATININE 0.72 07/03/2024 EGFR 78.7 07/04/2024 EGFR 83.9 07/03/2024 BCR 21.1 07/04/2024 BCR 27.8 07/03/2024 Lab Results Component Value Date MG 1.7 (L) 07/04/2024 MG 1.7 (L) 07/03/2024 No results found for: PHOS Lab Results Component Value Date ALT 154 (H) 07/04/2024 ALT 168 (H) 07/03/2024 AST 145 (H) 07/04/2024 AST 158 (H) 07/03/2024 ALKPHOS 800 (H) 07/04/2024 ALKPHOS 746 (H) 07/03/2024 BILITOT 8.8 (H) 07/04/2024 BILITOT 9.5 (H) 07/03/2024 Lab Results Component Value Date INR 1.28 (H) 07/02/2024 INR 1.29 (H) 07/01/2024 Follow-up: Patient seen resting in bed. Primary RN consulted for follow up. The patient's labs and vitals are stable at this time. Patient's RR and HR have stabilized to WNL since dayshift. Primary RN educated on need to persistently monitor BP since it is slightly soft. The primary RN voiced no concerns at this time. The administrative underwriter urged the primary RN to call the rapid team if any concerns arise overnight. See Robbins RN Rapid Response Team Nurse [phone] 07/04/2024 10:12 PM NURSNOTE Observed: 07/04/2024 5:58 PM Status: COMPLETED Source: [facility] Patient Name: Jenna yanez : 1945 Primary Care Physician: Mayito Costello DO Admission Date: 07/01/2024 RAPID RESPONSE TEAM DETERIORATION INDEX FOLLOW-UP NOTE SUBJECTIVE / OBJECTIVE: Follow-up on 07/04/2024 at 1747 for Deterioration Index alert . Predictive Model Details 70 (High) Factor Value Calculated 07/04/2024 17:47 Respiratory rate 42 Deterioration Index Model Age [age] years old Neurological exam X Pulse 111 Cardiac rhythm NSR WBC count abnormal (20.22 10*3/uL) Sodium abnormal (132 mmol/L) Systolic 146 Hematocrit abnormal (27.7 %) Potassium 4.0 mmol/L Pulse oximetry 95 % Temperature 36.9 ???C (98.5 ???F) ASSESSMENT / INTERVENTIONS: Recent Vital Signs: Vitals: 07/04/24 1715 07/04/24 1724 07/04/24 1731 07/04/24 1740 BP: 146/84 (!) 153/48 Pulse: 110 (!) 111 109 Resp: 12 (!) 42 (!) 40 Temp: 36.9 ???C (98.5 ???F) TempSrc: SpO2: 99% 95% 92% Weight: Height: Latest Labs: Lab Results Component Value Date WBC 20.22 (H) 07/04/2024 WBC 19.30 (H) 07/03/2024 HGB 8.9 (L) 07/04/2024 HGB 8.9 (L) 07/03/2024 HGB 8.9 (L) 07/03/2024 HCT 27.7 (L) 07/04/2024 HCT 27.3 (L) 07/03/2024 HCT 27.2 (L) 07/03/2024 MCV 87.9 07/04/2024 MCV 84.7 07/03/2024 PLT 281 07/04/2024 PLT 266 07/03/2024 NEUTROABS 16.8 (H) 07/04/2024 NEUTROABS 16.0 (H) 07/03/2024 Lab Results Component Value Date GLUCOSE 106 (H) 07/04/2024 GLUCOSE 128 (H) 07/03/2024 CALCIUM 7.7 (L) 07/04/2024 CALCIUM 7.6 (L) 07/03/2024 NA 132 (L) 07/04/2024 NA 133 (L) 07/03/2024 K 4.0 07/04/2024 K 3.2 (L) 07/03/2024 CO2 24 07/04/2024 CO2 21 07/03/2024 CL 104 07/04/2024 CL 105 07/03/2024 BUN 16 07/04/2024 BUN 20 07/03/2024 CREATININE 0.76 07/04/2024 CREATININE 0.72 07/03/2024 EGFR 78.7 07/04/2024 EGFR 83.9 07/03/2024 BCR 21.1 07/04/2024 BCR 27.8 07/03/2024 Lab Results Component Value Date MG 1.7 (L) 07/04/2024 MG 1.7 (L) 07/03/2024 No results found for: PHOS Lab Results Component Value Date ALT 154 (H) 07/04/2024 ALT 168 (H) 07/03/2024 AST 145 (H) 07/04/2024 AST 158 (H) 07/03/2024 ALKPHOS 800 (H) 07/04/2024 ALKPHOS 746 (H) 07/03/2024 BILITOT 8.8 (H) 07/04/2024 BILITOT 9.5 (H) 07/03/2024 Lab Results Component Value Date INR 1.28 (H) 07/02/2024 INR 1.29 (H) 07/01/2024 Follow-up: Spoke with patient and primary RN. Patient shaking but temperature is normal. Primary team is aware. Antibiotics are running. Magnesium was replaced. If heart rate continues to increase then plan is for chest Xray. Blood cultures are pending. [employer]EING [employer]OW BOSS to continue to follow. Encouraged to reach out with any changes. Amanuel Malcolm RN Rapid Response Team Nurse [phone] 07/04/2024 5:58 PM 30 Observed: 07/04/2024 4:25 PM Status: COMPLETED Source: [facility] Daily Case Management Update Multidisciplinary rounds have been completed. Barriers to Discharge et per Progress Note/s: Today patient stated she has not been feeling well, denies any fever/chills. She has a low-grade fever of 100 Fahrenheit. PT Consulted; pending. UPDATE @ 8615 PT recs SNF. Need facility of choice. SW following. Diet: Dietary Orders (From admission, onward) Start Ordered 07/04/24 1623 Special Kitchen Request Once Comments: X2 grapes x2 V8 juice 07/04/24 1623 07/03/24 1010 Regular Diet Diet effective now Question: Room Service? Answer: Yes 07/03/24 1009 07/02/24 1847 Special Kitchen Request Once Comments: Fruit cup, fresh fruit, auto fill remainder of tray 07/02/24 1846 Physician Expected Discharge Date: 07/04/2024 Discharge Delays: PT Six Click Score: 14 OT Six Click Score: PT Recommendations: alf facility placement (Potential for home discharge if activity tolerance improves to allow safe household mobility) OT Recommendations: New Consults: Consult Orders (From admission, onward) Start Ordered 07/01/242139 Inpatient consult to Hospitalist Once Specialty: Internal Medicine Provider: (Not yet assigned) Question Answer Comment Consulting Group HOSPITALIST (ADMIT/FLOAT) Reason for Consult? GI bleed Level of Consultation Consultation and Management 07/01/24213907/01/242135 Inpatient consult to Gastroenterology Once Specialty: Gastroenterology Provider: (Not yet assigned) Question Answer Comment Consulting Group GASTROENTEROLOGY TEAM Reason for Consult? GI bleed Level of Consultation Consultation and Management 07/01/242134 Therapy Orders (From admission, onward) Start Ordered 07/04/24 1023 PT eval and treat Until therapy completed Question: Reason for PT? Answer: pt says she is weak and cant be dc 07/04/24 1022 CANCER ANTIGEN 19-9 Collected: 07/04/19 3:53 PM Status: UNK Source: [facility] TYPE CODE TESTS RESULT OUT OF RANGE REFERENCE UNITS LAB [id number] CANCER AG 19-9 (U/ML) IN SER/PLAS <2 <=35 U/mL Result Comment: INTERPRETIVE INFORMATION: Cancer Antigen-GI (CA 19-9) This test uses Jami CA 19-9 electrochemiluminescent immunoassay. Results obtained with different test methods or kits cannot be used interchangeably. CA 19-9 value is useful in monitoring pancreatic, hepatobiliary, gastric, hepatocellular, and colorectal cancer. CA 19-9 value, regardless of level, should not be interpreted as absolute evidence of the presence or absence of malignant disease. Performed By: [facility] [address] [place] [id number] Manager Epic: Issa Segura MD, PhD CLIA Number: [id number] Performed By: #### [id number] ## ## [facility] ([facility]) [address] [place] [address] CEA Collected: 07/04/2024 3:53 PM Status: UN K Source: [facility] TYPE CODE TESTS RESULT OUT OF RANGE REFERENCE UNITS LAB [id number] CARCINOEMBRYONIC AG (NG/ML) IN SER/PLAS 2.2 0-3 ng/mL Performed By: #### [id number] ### # [facility] ([facility]) [address] [place] [address] AFP TUMOR MARKER Collected: 3:53 PM Status: UNK Source: [facility] TYPE CODE TESTS RESULT OUT OF RANGE REFERENCE UNITS LAB [id number] ALPHA FETOPROTEIN TUMOR MARKER 5 0-9 ng/mL Result Comment: INTERPRETIVE INFORMATION: Alpha Fetoprotein Tumor Marker The Brett [employer] Access DxI AFP method is used. Results obtained with different assay methods or kits cannot be used interchangeably. AFP is a valuable aid in the management of nonseminomatous testicular cancer patients when used in conjunction with information available from the clinical evaluation and other diagnostic procedures. Increased AFP concentrations have also been observed in ataxia telangiectasia, hereditary tyrosinemia, primary hepatocellular carcinoma, teratocarcinoma, gastrointestinal tract cancers with and without liver metastases, and in benign hepatic conditions such as acute viral hepatitis, chronic active hepatitis, and cirrhosis. The result cannot be interpreted as absolute evidence of the presence or absence of malignant disease. The result is not interpretable as a tumor marker in females. Access complete set of age- and/or gender-specific reference intervals for this test in the [facility] Test Directory ([employer]). 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 No Post Acute Services Post acute facilities (Rehab/SNF/ECF etc) Patient's goal for discharge SNF Does the patient need discharge transport arranged? No (son) Screened by [facility]. Met with pt to follow up with PT recommendation for SNF. Gave pt SNF list to consider choices within 15 miles of pt's zip code. Also provided HHC list. Gave and reviewed with pt Welcome letter and will follow up with pt and/or family tomorrow with choices for DC planning. CONSULT Observed: 07/04/2024 3:20 PM Status: COMPLETED Source: [facility] Attestation signed by Nathalia Herman MD at 07/04/2024 4:42 PM By using the attestations below, the signing clinician agrees that I have read and verify that the documentation has been personally reviewed by me and ensure that the documentation accurately reflects the encounter. GC: I personally saw this patient on the day of the encounter, performed the gan portion(s) of the service and participated in the management and confirm the resident's documentation. Please note there may be an additional personal documentation from me. Additional Comments: (as above or edited in note) Nathalia Herman MD [employer] Candido Daniel M.D. Endowed Professor in Hematology Chief of Hematology/Oncology Licensed Final [employer], Hematology and Medical Oncology Fellowship Hematology/Oncology. Internal Medicine. [facility]. [facility]. Clinic: [phone] Office: [phone] Inpatient Hematology Oncology Fellow availability Monday - 830am-500pm, Monday 830am-430pm and Monday 830am-1200pm During these hours, Please contact Hematology Oncology Fellow through [employer] Chat first For Hematology Oncology needs on weekends and after hours, please page the on-call fellow through the hospital paradi operator. NEW INPATIENT HEMATOLOGY / ONCOLOGY CONSULT NOTE Patient ID: Jenna Kumar, 79 y.o. female Requested by: Saad Devi DO PCP: Mayito Costello DO : 1945 REASON FOR CONSULTATION: Adenocarcinoma of biliary tract Rectal mass CHIEF COMPLAINT: Chief Complaint Patient presents with Black or Bloody Stool Weakness, Gen Fall HISTORY OF PRESENT ILLNESS: Jenna Kumar is a 79 y.o. female with history of anxiety, HTN, who presented to hospital on 06/28 after she was noted to have severe jaundice w bili ~ [address] scan of abd/pelvis at the time showed 4.6 x 3.4 cm ill-defined hypoattenuating region in segment 4A and B suspicious for primary hepatic neoplasm, i.e. cholangiocarcinoma versus metastatic disease. The CT scan was also suspicious for rectal adenocarcinoma. liver function test revealed total bilirubin of 12.9, alkaline phosphatase of 1074, ALT 499 and AST 273. Pt underwent ERCP that showed stricture at common hepatic duct w dilation of L intra-hepatic duct and hypoechoic paraduodenal node. On 06/28, 2 stents were placed in L intrahepatic duct and pancreatic duct. Hepatic duct brushing, L hepatic biopsy showed evidence of adenocarcinoma. 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 Pt was readmitted on 07/02 again after she presented w generalised weakness, fall and javier. Her Hgb was found to be 7.0 down from 14. She was started on protonix drip and upper Endoscopy showed biliary stent related traumatic duodenal ulcer w oozing of blood. Stent was re-aligned and bleeding was stopped w clips. She received 2 units of pRBC. Now she is spiking fever of 100.4. Her bili, LFTs are trending down. Bili 12.1---> 8.8 HgB 7.0---> 9.1 s/p 1 units of prbc last unit given on 07/02 PAST HEMATOLOGY / ONCOLOGY HISTORY: Oncology History No history exists. REVIEW OF SYSTEMS: Complete 10-point ROS is negative except as mentioned in HPI. MEDICAL HISTORY: Past Medical History: Diagnosis Date Anxiety Bundle branch block Heart disease Hypertension SURGICAL HISTORY: History reviewed. No pertinent surgical history. FAMILY HISTORY: No family history on file. SOCIAL HISTORY: Social History Socioeconomic History Marital status: Spouse name: Not on file Number of children: Not on file Years of education: Not on file Highest education level: Not on file Occupational History Not on file Tobacco Use Smoking status: Never Smokeless tobacco: Never Substance and Sexual Activity Alcohol use: Yes Alcohol/week: 2.0 standard drinks of alcohol Types: 2 Glasses of wine per week Drug use: Not on file Sexual activity: Not on file Other Topics Concern Not on file Social History Narrative Not on file Social Determinants of Health Financial Resource Strain: Low Risk (07/02/2024) Overall Financial Resource Strain (CARDIA) Difficulty of Paying Living Expenses: Not hard at all Food Insecurity: No Food Insecurity (07/02/2024) Hunger Vital Sign Worried About Running Out of Food in the Last Year: Never true Ran Out of Food in the Last Year: Not on file Transportation Needs: No Transportation Needs (07/02/2024) Transportation Lack of Transportation (Medical): No Lack of Transportation (Non-Medical): Not on file Physical Activity: Not on file Stress: Not on file Social Connections: Not on file Intimate Partner Violence: Unknown (07/02/2024) Humiliation, Afraid, Rape, and Kick questionnaire Fear of Current or Ex-Partner: No Emotionally Abused: Not on file Physically Abused: Not on file Sexually Abused: Not on file Housing Stability: Low Risk (07/02/2024) Housing Stability Vital Sign Unable to Pay for Housing in the Last Year: No Number of Times Moved in the Last Year: Not on file Homeless in the Last Year: No MEDICATIONS: No current facility-administered medications on file prior to encounter. Current Outpatient Medications on File Prior to Encounter Medication Sig Dispense Refill diazePAM (Valium) 2 mg tablet Take 2 mg by mouth every 6 (six) hours if needed for anxiety. losartan (Cozaar) 25 mg tablet Take 25 mg by mouth in the morning. metoprolol tartrate (Lopressor) 25 mg tablet Take 12.5 mg by mouth in the morning. [DISCONTINUED] aspirin 81 mg EC tablet Take 81 mg by mouth in the morning. [DISCONTINUED] diazePAM (Valium) 2 mg tablet Take 2 mg by mouth every 12 (twelve) hours if needed for anxiety. [DISCONTINUED] losartan (Cozaar) 25 mg tablet Take 25 mg by mouth in the morning. [DISCONTINUED] metoprolol succinate XL (Toprol-XL) 25 mg 24 hr tablet Take 12.5 mg by mouth Twice daily at 6am and 6pm. Do not crush or chew. ALLERGIES: Allergies Allergen Reactions Penicillin Hives Sulfadiazine Hives PHYSICAL EXAMINATION: Vital signs: BP 135/57 Pulse 98 Temp 38.3 ???C (101 ???F) Resp 25 Ht 1.626 m (5' 4 ) Wt 69 kg (152 lb 1.9 oz) SpO2 96% BMI 26.11 kg/m??? General appearance: awake, alert, oriented, no acute distress HEENT: supple CV: RRR, no murmurs PULM: CTAB, no wheezing ABD: soft, NT/ND NEURO: Negative for focal deficit, weakness or loss of sensation. EXT: No deformities or skin discoloration. No clubbing, cyanosis, or edema. LABORATORY DATA: Lab Results Component Value Date WBC 20.22 (H) 07/04/2024 HGB 8.9 (L) 07/04/2024 HCT 27.7 (L) 07/04/2024 MCV 87.9 07/04/2024 PLT 281 07/04/2024 Lab Results Component Value Date CALCIUM 7.7 (L) 07/04/2024 K 4.0 07/04/2024 CO2 24 07/04/2024 BUN 16 07/04/2024 CREATININE 0.76 07/04/2024 Lab Results Component Value Date ALT 154 (H) 07/04/2024 AST 145 (H) 07/04/2024 ALKPHOS 800 (H) 07/04/2024 Lab Results Component Value Date INR 1.28 (H) 07/02/2024 INR 1.29 (H) 07/01/2024 IMAGING: No CT results found for the past 6 months PATHOLOGY: Common bile duct, biopsy: -Adenocarcinoma. B. Rectal mass, biopsy: -Superficial fragments of tubulovillous adenoma. -No invasive neoplasm or high-grade dysplasia identified. -See comment. Hepatic duct, brushing: - Suspicious for malignancy B. Lymph node, paraduodenal, EUS-guided fine needle aspiration: - Atypical cells present C. Liver, EUS-guided fine needle aspiration: - Adenocarcinoma ASSESSMENT AND PLAN: 79 y.o. female with history of anxiety, HTN, who presented to hospital on 06/28 after noting severe jaundice w bili ~ [address] scan of abd/pelvis at the time showed 4.6 x 3.4 cm ill-defined hypoattenuating region in liver suspicious for hepatic neoplasm, i.e. cholangiocarcinoma versus metastatic disease. The CT scan was also suspicious for rectal adenocarcinoma.ERCP showed hepatic artry stricture, hypoechoic node w brushing positive for adenocarcinoma, node positive for atypical cells, and liver mass positive for adenocarcinoma. However, rectal mass was tubulo-villous. 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 However, there is also rectal mass ( 5 cm circumferential) which on biopsy shows tubulovillous but concern is if biopsy was from superficial component. At ths time it is difficult to state w confidence if hepatic mass if met from rectal cancer or cholangiocarcinoma. To help in differentiation, we will need rectal MRI to further elucidate the rectal mass and may be repeat biopsy later on. I reached out to the pathologist to see if they can use stains to help see if hepatic mass origin is from GI tract or bilary tract. ( Biliary tract is CK7 positive/CK 20 negative and GI tract is CK 20 positive/CK 7 negative) We will also need to do further staging w chest CT. Check CEA, CA-19-9 and AFP Plan Further staging w Chest CT outpt. Check CEA, CA-19-9 and AFP Rectal MRI as outpt To differentiate if hepatic mass orgins ( rectal v cholangioCA) reached out to Vijay Fitzpatrick. No chemotherapy at this time, till origin and staging is clear. # Obstructive Jaundice w elevated LFT Trending down since placement of biliary and pancreatic stent Bili 12.1---> 8.2 LFT also trending down #Anemia S/p 2 units of prbc, last unit given on 07/02 Blood loss anemia Check anemia panel May need iron infusion based on labs # Fever Concern for cholangitis. Use antibiotics Thank you for the consult and appreciate allowing us to participate in the care of the patient. We will follow along. Kay Espana MD, [facility] Hematology and Oncology, PGY-5 NURSNOTE Observed: 07/04/2024 2:17 PM Status: COMPLETED Source: [facility] RN notifed DR Cano about pt shaking/ feeling weak. RN took a new temp it was 100F and ordered lactate and BC. RN recheck the temp is now 100.2F RN told DR Diaz and RN was told to tell when its 100.4F PROGRESS Observed: 07/04/2024 12:51 PM Status: COMPLETED Source: [facility] Hospital Medicine Daily Progress Note - 07/04/2024 12:51 PM; Room: [address] [place] [address] Admission: 07/01/2024 9:06 PM; Length of stay: 3 days THE HOSPITALIST TEAM PREFERS TO USE Section 101 CHAT FOR NON-URGENT COMMUNICATION 7AM-7PM. IF I DO NOT RESPOND WITHIN 20 MINUTES OR URGENT MATTERS, PLEASE CALL THROUGH THE SCREEN STRETCHER. FROM 7PM-7AM, PLEASE PAGE [phone](COVR). Code Status: Full Code Barriers to Discharge: Neurology/oncology evaluation, low-grade fever, blood cultures Expected Discharge Date: 07/04/24 Discharge Destination: home Overview Patient is seen for evaluation and management of melena, generalized weakness. Subjective Patient was seen and examined at bedside this morning. She was alert awake and oriented. He denied any active complaints. Patient stated she had a small smear of stool, which was still dark this morning. And is tolerating regular diet. Today patient stated she has not been feeling well, denies any fever/chills. She has a low-grade fever of 100 Fahrenheit. Physical Exam Visit Vitals BP 135/57 Pulse 98 Temp 37.5 ???C (99.5 ???F) (Temporal) Resp 25 No intake or output data in the 24 hours ending 07/04/24 1251 Physical Exam Constitutional: Appearance: Normal appearance. Eyes: General: Scleral icterus present. Cardiovascular: Rate and Rhythm: Normal rate and regular rhythm. Pulses: Normal pulses. Heart sounds: Normal heart sounds. Pulmonary: Effort: Pulmonary effort is normal. Breath sounds: Normal breath sounds. Abdominal: General: Abdomen is flat. Palpations: Abdomen is soft. Skin: General: Skin is warm. Neurological: General: No focal deficit present. Mental Status: She is alert and oriented to person, place, and time. Estimated body mass index is 26.11 kg/m??? as calculated from the following: Height as of this encounter: 1.626 m (5' 4 ). Weight as of this encounter: 69 kg (152 lb 1.9 oz). Active Inpatient Problems Principal Problem: GI bleed Active Problems: Posthemorrhagic anemia Primary hypertension Hypokalemia Liver mass Obstructive jaundice (CMS/HCC) Assessment and Plan Low-grade fever Patient has recent biliary stent placed, is jaundiced, has developed low-grade fever today. She denies any abdominal pain. Continue to monitor for developing signs of cholangitis. Blood cultures ordered. Acute blood loss anemia secondary to duodenal ulcer Patient's hemoglobin dropped to 8.1, received 2 PRBC transfusions. EGD performed on 07/02 showed a small duodenal ulcer with active oozing, likely caused by direct pressure from biliary stent on duodenal wall. The stent has been repositioned. Hemostasis achieved. Continue Protonix twice a day. 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 Balloon dilatation of CBD followed by brushing and biopsies were performed, 2 biliary stents placed into left intrahepatic ducts after sphincterotomy achieving good biliary drainage. Biopsy results pending. Rectal mass concerning for adenocarcinoma Flexible sigmoidoscopy on 06/28 showed 5 cm circumferential polypoid rectal mass extends from the dentate line, involving rectal folds, biopsies obtained Leukocytosis likely reactive in the setting of recent stenting and possible malignancy Primary hypertension Hold losartan as patient's blood pressure is borderline. Continue Lopressor at a lower dose of 12.5 mg twice a day. Hypokalemia Supplementation ordered VTE Prophylaxis: Contraindicated due to GI bleed Scheduled Meds magnesium oxide, 400 mg, oral, q8h metoprolol tartrate, 12.5 mg, oral, BID pantoprazole, 40 mg, oral, BID AC Pertinent Investigations Hematology: Results from last 7 days Lab Units 07/04/24 0635 07/03/24 0713 07/02/24 2104 07/02/24 1417 07/02/24 0356 07/01/24 2159 WBC AUTO 10*3/uL 20.22* 19.30* -- 19.51* -- 22.21* HEMOGLOBIN g/dL 8.9* 8.9* 8.9* < > 9.2* < > 8.1* HEMATOCRIT % 27.7* 27.2* 27.3* < > 27.8* < > 24.2* MCV fL 87.9 84.7 -- 84.0 -- 89.0 PLATELETS AUTO 10*3/uL 281 266 -- 262 -- 259 INR -- -- -- 1.28* -- 1.29* < > = values in this interval not displayed. Chemistry: Results from last 7 days Lab Units 07/04/24 0635 07/03/24 0923 07/02/24 0553 SODIUM mmol/L 132* 133* 138 POTASSIUM mmol/L 4.0 3.2* 3.6 CHLORIDE mmol/L 104 105 111* CO2 mmol/L 24 21 21 BUN mg/dL 16 20 28* CREATININE mg/dL 0.76 0.72 0.67 GLUCOSE mg/dL 106* 128* 87 MAGNESIUM mg/dL 1.7* 1.7* 1.7* CALCIUM mg/dL 7.7* 7.6* 7.3* Results from last 7 days Lab Units 07/04/24 0635 07/03/24 0923 07/02/24 0553 07/01/24 2159 AST U/L 145* 158* 173* 192* ALT U/L 154* 168* 178* 202* ALK PHOS U/L 800* 746* 613* 682* BILIRUBIN TOTAL mg/dL 8.8* 9.5* 10.5* 10.7* BILIRUBIN DIRECT mg/dL 5.1* 5.7* -- 6.1* LIPASE U/L -- -- 56 95* Results from last 7 days Lab Units 06/28/24 1254 POCT GLUCOSE mg/dL 96 Historical Values: (Includes values prior to this admission) No results found for: PREALBUMIN , TSH , T3FREE , FREET4 , CORTISOL , FEV1 , [id number] , DLCO , RVSP , HDL , LDL No results found for: [id number] , IRON , TIBC , C3 , C4 , WILTON , CANCA , ASO , PSA , CEA , CA125 , CA199 , AFP , CA153 Imaging EGD Table formatting from the original result was not included. Esophagogastroduodenoscopy (EGD) Procedure Note Procedure: EGD with endoscopic management of bleeding ulcer. Indications: 79 y.o. female who was admitted with melena. The patient was recently seen for the history of obstructive jaundice. She had an ERCP with endoscopic ultrasound, fine-needle aspiration and biliary sphincterotomy with biliary stent placement on June 28, 2024. LFTs have been slowly improving. She also had a rectal mass that was biopsied. The patient is scheduled to have an EGD to assess a potential source for melena. Sedation: MAC Medications: EPINEPHrine (Adrenalin) 1 mg/10mL injection 10 mL (Totals for administrations occurring from 1737 to 1826 on 07/02/24) Attending Physician: Bradley Díaz MD Procedure Details: Informed consent was obtained for the procedure, including sedation. Risks of infection, perforation, hemorrhage, adverse drug reaction, and aspiration were discussed. The patient was placed in the left lateral decubitus position. The patient was monitored continuously with ECG tracing, pulse oximetry, blood pressure monitoring, and direct observation. The gastroscope was inserted into the mouth and advanced under direct vision to second portion of the duodenum. A careful inspection was made as the gastroscope was withdrawn, including a retroflexed view of the proximal stomach; findings and interventions are described below. Appropriate photodocumentation was obtained. Findings: The examination of the esophagus and the stomach were unremarkable. No blood was identified within the esophagus or the stomach. The examination of the duodenal bulb was unremarkable. The examination of the second part of the duodenum revealed to plastic biliary stent protruding through the papilla into the duodenal lumen. One of the stent was abutting the opposite duodenal wall causing small ulceration that was oozing small amount of blood. The stent position was readjusted using rat-tooth forceps. 3 hemoclips were deployed at the site of bleeding followed by injection of 10 mL of 1 in 10,000 epinephrine. Complete hemostasis was achieved. Specimens: No specimens collected Complications: None Estimated blood loss: Minimal Disposition: Home Condition: stable Impression: Small duodenal ulcer oozing blood caused by a direct pressure of the biliary stent on the opposite wall of the second part of the duodenum. The position of the stent was adjusted away from the duodenum wound and the site of the bleeding was clipped with. Hemoclips and injected with epinephrine. Complete hemostasis was achieved. The site of the sphincterotomy was unremarkable and bile was noted draining from the common bile duct as as well as from the biliary stents. Recommendations: Start clear liquid diet. Start IV PPI. Follow-up H&H Awaiting histopathology results from previous ERCP/EUS and flexible sigmoidoscopy with biopsies. Further plan depends upon the histopathology results. Attending Attestation: I performed the procedure. Discharge Planning Expected Discharge Disposition: Home or Self Care () Signed Ioana Cano MD [facility] Medicine 07/04/2024 12:51 PM LACTIC ACID WITH 4 HOUR REFLEX Collecte d: 07/04/2024 12:49 PM Status: UNK Source: [facility] TYPE CODE TESTS RESULT OUT OF RANGE REFERENCE UNITS LAB 5085356 LACTATE (MMOL/L) IN SER/PLAS 1.6 0.5-2.2 mmol/L Performed By: #### [id number] #### [facility] ([facility]) [address] [place] [address] BLOOD CULTURE Collected: 07/04/2024 12:09 PM Status: UNK Source: [facility] TYPE CODE TESTS RESULT OUT OF RANGE REFERENCE UNITS LAB 54182-5(LOINC) Amoxicillin+Clav Susc Islt <=4/2 Susceptible ug/ml LAB 75480-6(LOINC) Ampicillin Susc Islt <=4 Susceptible ug/ml LAB 40021-9(LOINC) Ampicillin+Sulba c Susc Islt 2/1 Susceptible ug/ml LAB 14295-9(LOINC) ceFAZolin Susc Islt Susceptible LAB 07514-5(LOINC) cefTRIAXone Susc Islt <=1 Susceptible ug/ml LAB 03662-7(LOINC) Ciprofloxacin Susc Islt <=0.25 Susceptible ug/ml LAB 6984-9(LOINC) B-Lactamase Extended Susc Islt Negative Unknown ug/ml LAB 21117-6(LOINC) Gentamicin Susc Islt <=2 Susceptible ug/ml LAB 50993-9(LOINC) Tobramycin Susc Islt <=2 Susceptible ug/ml LAB 96058-4(LOINC) TMP SMX Susc Islt <=0.5/9.5 Susceptible ug/ml Performed By: #### [id number] ## ## [facility] ([facility]) [address] [place] [address] BLOOD CULTURE IDENTIFICATION PCR PANEL, AEROBIC Collected: 07/04/2024 12:09 PM Status: UNK Source: [facility] Order Comment: The [employer] B CID2 is a multiplexed nucleic acid test intended for simultaneous qualitative detection and identification of multiple bacterial and yeast nucleic acids and selected genetic determinants associated with antimicrobial resistance. Note: Antimicrobial resistance can occur via multiple mechanisms. A Not Detected result for antimicrobial resistance gene(s) does not indicate antimicrobial susceptibility. Subculturing is required for species identification and susceptiblity testing of isolates. TYPE CODE TESTS RESULT OUT OF RANGE REFERENCE UNITS LAB 775989 ENTEROCOCCUS FAECALIS DNA BY PCR Not Detected Not Detected LAB 368350 ENTEROCOCCUS FAECIUM DNA BY PCR Not Detected Not Detected LAB 121030 LISTERIA MONOCYTOGENES DNA BY PCR Not Detected Not Detected LAB 916794 STAPHYLOCOCCUS SPP. DNA BY PCR Not Detected Not Detected LAB 424673 STAPHYLOCOCCUS AUREUS DNA BY PCR Not Detected Not Detected LAB 512562 STAPHYLOCOCCUS EPIDERMIDIS DNA BY PCR Not Detected Not Detected LAB 152851 STAPHYLOCOCCUS LUGDUNENSIS DNA BY PCR Not Detected Not Detected LAB 809536 STREPTOCOCCUS SP P. DNA BY PCR Not Detected Not Detected LAB 854660 STREPTOCOCCUS AGALACTIAE (GROUP B) DNA BY PCR Not Detected Not Detected LAB 030335 STREPTOCOCCUS PNEUMONIAE DNA BY PCR Not Detected Not Detected LAB 993119 STREPTOCOCCUS PYOGENES (GROUP A) DNA BY PCR Not Detected Not Detected LAB 626838 ACINETOBACTER CALCOACETICUS-MANJIT ANNII COMPLEX DNA PCR Not Detected Not Detected LAB 135174 BACTEROIDES FRAGILIS DNA BY PCR Not Detected Not Detected LAB 136737 ENTEROBACTERALES DNA BY PCR Detected Abnormal Alert Not Detected LAB 594726 ENTEROBACTER CLOACAE COMPLEX DNA BY PCR Not Detected Not Detected LAB 079791 ESCHERICHIA COLI DNA BY PCR Detected Abnormal Alert Not Detected LAB 499406 KLEBSIELLA AEROGENES DNA BY PCR Not Detected Not Detected LAB 078250 KLEBSIELLA OXYTO CA DNA BY PCR Not Detected Not Detected LAB 937561 KLEBSIELLA PNEUMONIAE GROUP DNA BY PCR Not Detected Not Detected LAB 304041 PROTEUS SPP. DNA BY PCR Not Detected Not Detected LAB 592794 SALMONELLA SPP. DNA BY PCR Not Detected Not Detected LAB 909352 SERRATIA MARCESCENS DNA BY PCR Not Detected Not Detected LAB 794222 HAEMOPHILUS INFLUENZAE DNA BY PCR Not Detected Not Detected LAB 566267 NEISSERIA MENINGITIDIS DNA BY PCR Not Detected Not Detected LAB 922157 PSEUDOMONAS AERUGINOSA DNA BY PCR Not Detected Not Detected LAB 938722 STENOTROPHOMONAS MALTOPHILIA DNA BY PCR Not Detected Not Detected LAB 310388 EMERALD ALBICANS DNA BY PCR Not Detected Not Detected LAB 485528 EMERALD AURIS DN A BY PCR Not Detected Not Detected LAB 162815 EMERALD GLABRATA DNA BY PCR Not Detected Not Detected LAB 250694 EMERALD KRUSEI D NA BY PCR Not Detected Not Detected LAB 195604 EMERALD PARAPSILOSIS DNA BY PCR Not Detected Not Detected LAB 885475 EMERALD TROPICAL IS DNA BY PCR Not Detected Not Detected LAB 111696 CRYPTOCOCCUS NEOFORMANS/GATTII DNA BY PCR Not Detected Not Detected LAB 760427 CTX-M GENE BY PCR Not Detected Not Detected LAB 634229 IMP GENE BY PCR Not Detected N ot Detected LAB 950219 KPC GENE BY PCR Not Detected N ot Detected LAB 300544 MCR-1 GENE BY PCR Not Detected Not Detected LAB 255240 NDM GENE BY PCR Not Detected N ot Detected LAB 045992 OXA-48-LIKE GENE BY PCR Not Detected Not Detected LAB 818918 VIM GENE BY PCR Not Detected N ot Detected Performed By: #### [id number] # ### [facility] ([email or web address]) [address] [place] [address] BLOOD CULTURE Collected: 12:09 PM Status: UNK Source: [facility] Order Comment: From a differ ent site than #1. TYPE CODE TESTS RESULT OUT OF RANGE REFERENCE UNITS LAB 8973341 BLOOD CULTURE No growth at 5 days Performed By: #### [id number] ## ## [facility] ([facility]) [address] [place] [address] PROGRESS Observed: 07/04/2024 11:06 AM Status: COMPLETED Source: [facility] Physical Therapy Evaluation Patient Name: Jenna Kumar Today's Date: 07/04/2024 Admit Date: 07/01/2024 07/04/24 1419 PT Last Visit PT Received On 07/04/24 Plan Level of assist 1 assist PT Plan Skilled PT PT Frequency 5 times per week PT Discharge Recommendations alf facility placement (Potential for home discharge if activity tolerance improves to allow safe household mobility) PT - Discharge Recommendations Placed Yes History of present illness Patient is a 79 y.o. female presents w/ hematochezia, weakness and fall. Recent placement of liver stent, transferred from [place]. Past Medical History HTN, heart dz, anxiety, cardiac arhythmia Current Diagnoses New dx of Rectal carcinoma, hepatic neoplasm GI bleed, anemia s/p 2 units transfused BESSY sepsis PRIOR LEVEL OF FUNCTION obtained per patient Vision: WNL Hearing: WNL Mobility: independent w/o device ADLs: independent with grooming, bathing, and dressing IADLs/household management: independent with cooking, laundry, and cleaning Transportation: drives Occupation: retired Leisure activities: gardening, yardwork Social support spouse / significant other Home Set-Up: Patient lives with spouse in a 1 story home Pt in bed, call light w/in reach, RN aware OBJECTIVE ASSESSMENT/PHYSICAL EXAM Cognition Alert Overall Cognitive Status: WNL Arousal/Alertness: Delayed responses to stimuli; reports malaise Orientation Level: Oriented x4 Following Commands: Follows all commands and directions without difficulty Safety Judgment: Good awareness of safety precautions Awareness of Errors: Good awareness of errors made Attention Span: Appears intact Memory: Appears intact Problem Solving: Able to problem solve independently Communication: Intact Pain: No complaint of pain Sensation: WNL Edema/Skin Appearance: WNL Coordination/Tone: WNL Precautions IV, telemetry, fall risk Objective assessment Bed mobility Supine to sit: moderate assist. and Sit to supine: moderate assist. Transfers Sit to stand: contact guard assist, and verbal/tactile cueing for sequencing/proper technique for safe use of RW Stand to sit: contact guard assist Gait Patient ambulates 2 feet, with Rolling walker, and minimal assist Side stepping toward HOB w/ RW Endurance Limited by malaise Vitals Patient is warm to touch, RN notified and took temperature: 100.2* F Balance Sitting: patient requires contact guard assist to sit statically at edge of bed Standing: patient able to stand with rolling walker) and contact guard assist assistance Posture WNL ROM UE ROM: WNL LE ROM: WNL Strength Functional strength WFL: see functional mobility assessment Education Verbal, Feedback during session, Functional mobility, and Progression/Return to prior level of activity 07/04/24 1400 6 Clicks (Mobility) Help from another person turning from your back to your side while in a flat bed without using bedrails 3 Help from another person moving from lying on your back to sitting on the side of a flat bed without using bedrails 2 Help from another person moving to and from a bed to a chair (including a wheelchair) 3 Help from another person standing up from a chair using your arms (e.g. wheelchair or bedside chair) 3 Help from another person to walk in hospital room 2 Help from another person climbing 3-5 steps with a railing 1 Mobility 6 Clicks T-Score 14 Assessment Patient will benefit from Skilled Physical Therapy Services due to demonstrating limited functional mobility secondary to endurance, and gait/balance impairments, and generalized weakness, and multiple co-morbidities. These impairments limit the patient's ability to perform daily tasks including walking, bathing/dressing, cleaning/housework, performing basic ADLs, performing transfers, walking community distances. Skilled PT to address impairments and facilitate return to safe and prior level of mobility and functional tasks following hospitalization for BESSY, sepsis, new dx of rectal and liver Ca Interventions Therapeutic Exercise, Dynamic Balance interventions, Gait Training, Functional Mobility, and Endurance Training Plan Patient will perform bed mobility from flat bed independently without use of bed rails. Pt to progress seated and standing balance to allow return to prior level of functional activity, ADLs and tasks Pt to ambulate 150' independently to improve ability to safely navigate home; demonstrating safe/proper use of RW Stairs as needed to access home, CGA Pt to perform 45 min session including gait and standing dynamic activities to facilitate return to independent ADLs and tasks; with minimal rest breaks and vitals remaining in normal limits to improve endurance. Sharri Valadez PT, MPT [facility] Acute Rehabilitation PROGRESS Observed: 07/04/2024 8:45 AM Status: COMPLETED Source: [facility] Teaching GI Service Con beto Gastroenterology/Hepatology Progress Note IDENTIFYING DATA PATIENT: Jenna Kumar ADMIT DATE: 07/01/2024 TIME OF EVALUATION: 07/04/2024 8:45 AM HOSPITAL STAY: LOS: 3 days REASON FOR HOSPITALIZATION: Hematochezia SUBJECTIVE/INTERVAL HISTORY Jenna Kumar's overnight events were reviewed. Hemoglobin 8.9 from 9.2. The patient is having brown bowel movements but continues to report ongoing weakness, fatigue, and decreased appetite. Liver function tests remain elevated, with the following results: Total Bilirubin at 8.8 mg/dL (high), Direct Bilirubin at 5.1 mg/dL (high), Alkaline Phosphatase at 800 U/L (high), AST at 145 U/L (high), ALT at 154 U/L (high). The common bile duct biopsy confirmed adenocarcinoma, while the rectal mass biopsy showed superficial fragments of tubulovillous adenoma without evidence of invasive neoplasm or high-grade dysplasia. Biopsy results were reviewed with the patient, who verbalized understanding. OBJECTIVE MEDICATIONS SCHEDULED: @MEDSCURRENTMD@ PRNs: Physical VITALS: BP 125/73 Pulse 80 Temp 36.8 ???C (98.3 ???F) (Temporal) Resp 22 Ht 1.626 m (5' 4 ) Wt 69 kg (152 lb 1.9 oz) SpO2 93% BMI 26.11 kg/m??? GEN: Alert and oriented x3, NAD HEENT: Atraumatic, normocephalic CV: No edema visualized PULM: Respirations even and unlabored ABD: Soft, non-tender, non-distended NEURO: Moves all 4 extremities spontaneously, answers questions appropriately LABS AND IMAGING CBC: Lab Results Component Value Date WBC 20.22 (H) 07/04/2024 RBC 3.15 (L) 07/04/2024 HGB 8.9 (L) 07/04/2024 HCT 27.7 (L) 07/04/2024 MCV 87.9 07/04/2024 RDW 23.9 (H) 07/04/2024 PLT 281 07/04/2024 CMP: Lab Results Component Value Date NA 132 (L) 07/04/2024 K 4.0 07/04/2024 CL 104 07/04/2024 CO2 24 07/04/2024 BUN 16 07/04/2024 PROT 4.3 (L) 07/04/2024 IMAGING: Esophagogastroduodenoscopy (EGD) Procedure Note 07/03/2024 Impression: Small duodenal ulcer oozing blood caused by a direct pressure of the biliary stent on the opposite wall of the second part of the duodenum. The position of the stent was adjusted away from the duodenum wound and the site of the bleeding was clipped with. Hemoclips and injected with epinephrine. Complete hemostasis was achieved. The site of the sphincterotomy was unremarkable and bile was noted draining from the common bile duct as as well as from the biliary stents. Recommendations: Start clear liquid diet. Start IV PPI. Follow-up H&H Awaiting histopathology results from previous ERCP/EUS and flexible sigmoidoscopy with biopsies. Further plan depends upon the histopathology results. ASSESSMENT AND PLAN Jenna Kumar is a 79 y.o. female with a history of left bundle branch block, transferred for evaluation of new-onset gastrointestinal bleeding and progressive fatigue. She initially presented with jaundice, white stools, and dark urine in early June, prompting workup revealing cholestasis and hepatic dysfunction. 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 Endoscopic evaluation on 06/28/2024, including ERCP with balloon dilation and stent placement, revealed a high-grade hilar stricture, a large hepatic mass, and a common hepatic duct mass. Post-procedure, she developed worsening fatigue, anorexia, pruritus, dark yellow urine, and recurrent dark red rectal bleeding. 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 EGD with EUS/ERCP on 06/28/2024 revealed a high-grade hilar stricture with a diffusely dilated left intrahepatic biliary system. The right intrahepatic ducts could not be opacified. Biopsy results positive for adenocarcinoma. Large Left Hepatic Mass and Mass Within the Common Hepatic Duct Rectal Mass A 5 cm circumferential polypoid rectal mass extends from the dentate line, involving rectal folds. 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 Acute Blood Loss Anemia The patient experienced dark red rectal bleeding accompanied by worsening fatigue. Hemoglobin levels declined to 8.1 g/dL, necessitating the transfusion of 2 units of packed red blood cells (PRBCs). An EGD performed on 07/02/2024 identified a small duodenal ulcer with active oozing, likely caused by direct pressure from the biliary stent on the duodenal wall. The stent was repositioned to alleviate pressure, and endoscopic hemostasis was successfully achieved using hemoclips and epinephrine injection. The sphincterotomy site appeared unremarkable, and bile was draining appropriately from the common bile duct and biliary stents. Leukocytosis White blood cell count is elevated at 22.21. Recent biliary stent placement. Plan: OK to advance diet from GI perspective. Continue Protonix 40 mg BID Trend LFT's. Trend H&H and transfuse as needed Monitor for overt bleeding Avoid hepatotoxic medication. Recommend hemonc consult for further management of adenocarcinoma. Consider initiating an appetite stimulant, such as Remeron, for decreased appetite. Medical management per primary. The case will be discussed with the attending physician For Questions please contact us at: [facility] GI Service 6 am to 4 pm weekdays in house Phone extension: [phone] 4 pm to 6 am or weekends please contact the paradi operator to page the fellow applications support lead IRON AND TIBC Collected: 07/04/2024 6:35 AM Status: UNK Source: [facility] TYPE CODE TESTS RESULT OUT OF RANGE REFERENCE UNITS LAB [id number] IRON (UG/DL) IN SER/PLAS 84 50-212 ug/dL LAB 8498260 IRON BINDING CAPACITY (UG/DL) IN SER/PLAS 188 Low 250-450 ug/dL LAB 8425031 IRON SATURATION (%) IN SER/PLAS 45 20-50 % LAB 0581694 IRON BINDING CAPACITY.UNSATU RATED (UG/DL) IN SER/PLAS 104.0 Low 155.0-355.0 ug/dL Performed By: #### [id number] ## ## [facility] ([facility]) [address] [place] [address] CBC WITH AUTO DIFFERENTIAL Collected: 07/04/2024 6:35 AM Status: UNK Source: [facility] TYPE CODE TESTS RESULT OUT OF RANGE REFERENCE UNITS LAB 1288628 LEUKOCYTES(10*3/ UL) IN BLOOD BY AUTOMATED COUNT 20.22 High 4.00-10.60 10*3/uL LAB 4046069 ERYTHROCYTES (10*6/UL) IN BLOOD BY AUTOMATED COUNT 3.15 Low 3.80-5.00 10*6/uL LAB 1114043 HEMOGLOBIN (G/DL) IN BLOOD 8.9 Low 12.0-15.0 g/dL LAB 6639967 HEMATOCRIT (%) IN BLOOD BY AUTOMATED COUNT 27.7 Low 36.0-48.0 % LAB 7789815 ERYTHROCYTE MEAN CORPUSCULAR VOLUME (FL) BY AUTOMATED COUNT 87.9 82.0-98.0 fL LAB 0323348 ERYTHROCYTE MEAN CORPUSCULAR HEMOGLOBIN (PG) BY AUTOMATED COUNT 28.3 27.0-33.0 pg LAB 3099967 ERYTHROCYTE MEAN CORPUSCULAR HEMOGLOBIN CONCENTRATION (G/DL) BY AUTOMATED 32.1 32.0-35.0 g/dL LAB 8585739 ERYTHROCYTE DISTRIBUTION WIDTH (RATIO) BY AUTOMATED COUNT 23.9 High 11.5-15.0 % LAB 1529479 PLATELETS (10*3/UL) IN BLOOD AUTOMATED COUNT 281 150-400 10*3/uL LAB 254 NRBC (PER 100 WBCS) BY AUTOMATED COUNT 0.0 0 % Performed By: #### [id number] # ### [facility] ([facility]) [address] [place] [address] 18341 MAGNESIUM Collected: 07/04/2024 6:35 AM Status: UN K Source: [facility] TYPE CODE TESTS RESULT OUT OF RANGE REFERENCE UNITS LAB 3013342 MAGNESIUM (MG/DL) IN SER/PLAS 1.7 Low 1.9-2.7 mg/dL Performed By: #### [id number] ## ## [facility] ([facility]) [address] [place] [address] [id number] FOLATE Collected: 07/04/2024 6:35 AM Status: UN K Source: [facility] TYPE CODE TESTS RESULT OUT OF RANGE REFERENCE UNITS LAB 9606573 FOLATE (NG/ML) IN SER/PLAS 10.35 6.6-1000 ng/mL Performed By: #### [id number] ### # [facility] ([address] [address] FERRITIN Collected: 6:35 AM Status: UNK Source: [facility] TYPE CODE TESTS RESULT OUT OF RANGE REFERENCE UNITS LAB 8487021 FERRITIN (NG/ML) IN SER/PLAS 502.0 High 11.0-307.0 ng/mL Performed By: #### [id number] ### # [facility] ([facility]) [address] [place] [address] 28140 VITAMIN B12 Collected: 6:35 AM Status: UNK Source: [facility] TYPE CODE TESTS RESULT OUT OF RANGE REFERENCE UNITS LAB [id number] COBALAMIN (VITAMIN B12) (PG/ML) IN SER/PLAS 1533 High 180-914 pg/mL Result Comment: REFERENCE RA NGES: 180-914 pg/mL Normal 145-179 pg/mL Indeterminate <145 pg/mL Deficient Performed By: #### [id number] ### # [facility] ([facility]) [address] [place] [address] HEPATIC FUNCTION PANEL Collected: 07/04/2024 6:35 AM Status: UNK Source: [facility] TYPE CODE TESTS RESULT OUT OF RANGE REFERENCE UNITS LAB 1592023 BILIRUBIN TOTAL (MG/DL) IN SER/PLAS 8.8 High 0.3-1.0 mg/dL LAB 1230726 BILIRUBIN DIRECT (MG/DL) IN SER/PLAS 5.1 High 0-0.2 mg/dL LAB 5087251 ALKALINE PHOSPHA TASE (U/L) IN SER/PLAS 800 High 34-104 U/L LAB 8687740 ASPARTATE AMINOTRANSFERASE (SGOT) (U/L) IN SER/PLAS 145 High 13-39 U/L LAB 7950390 ALANINE AMINOTRANSFERASE (SGPT) (U/L) IN SER/PLAS 154 High 7-52 U/L LAB 4932734 PROTEIN (G/DL) I N SER/PLAS 4.3 Low 6.0-8.3 g/dL LAB 1363164 ALBUMIN (G/DL) I N SER/PLAS 2.4 Low 3.5-5.7 g/dL Performed By: #### [id number] ### # [facility] ([facility]) [address] [place] [address] BASIC METABOLIC PANEL Collected: 2024 6:35 AM Status: UNK Source: [facility] TYPE CODE TESTS RESULT OUT OF RANGE REFERENCE UNITS LAB 4022117 SODIUM (MMOL/L) IN SER/PLAS 132 Low 136-145 mmol/L LAB [id number] POTASSIUM (MMOL/L) IN SER/PLAS 4.0 3.5-5.1 mmol/L LAB [id number] CHLORIDE (MMOL/L) IN SER/PLAS 104 98-107 mmol/L LAB [id number] CARBON DIOXIDE, TOTAL (MMOL/L) IN SER/PLAS 24 21-31 mmol/L LAB [id number] UREA NITROGEN (MG/DL) IN SER/PLAS 16 7-25 mg/dL LAB [id number] CREATININE (MG/DL) IN SER/PLAS 0.76 0.60-1.20 mg/dL LAB [id number] GLUCOSE (MG/DL) IN SER/PLAS 106 High 70-100 mg/dL LAB [id number] CALCIUM (MG/DL) IN SER/PLAS 7.7 Low 8.6-10.3 mg/dL LAB [id number] ANION GAP IN SER/PLAS 8 7-20 mmol/L LAB [id number] GLOMERULAR FILTRATION RATE ML/MIN/1.73 SQ M.PREDICTED 78.7 >60.0 mL/min/ 1.73m*2 Result Comment: [facility]???s estimated glomerular filtration rate (eGFR) will [...] disproportionately affect any one group of individuals. LAB [id number] UREA NITROGEN/CREA TININE (MASS RATIO) IN SER/PLAS 21.1 NA Performed By: #### [id number] ### # [facility] ([facility]) [address] [place] [address] MANUAL DIFFERENTIAL Collected: 07/04/2024 6:[address] atus: UNK Source: [facility] TYPE CODE TESTS RESULT OUT OF RANGE REFERENCE UNITS LAB [id number] MYELOCYTES/100 LEUKOCYTES IN BLOOD CELLAVISION 1.3 High 0.0-0.0 % LAB 109 VARIANT LYMPHOCYTES/100 LEUKOCYTES IN BLOOD CELLAVISION 0.0 0.0-0.0 % LAB [id number] NEUTROPHILS (10*3/UL) IN BLOOD BY CALCULATION 16.8 High 1.6-7.6 10*3/uL LAB [id number] LYMPHOCYTES (10*3/UL) IN BLOOD BY CALCULATION 1.76 1.20-4.00 10*3/uL LAB [id number] MONOCYTES (10*3/UL) IN BLOOD BY CALCUATION 0.26 0.10-1.00 10*3/uL LAB [id number] EOSINOPHILS (10*3/UL) IN BLOOD BY CALCULATION 0.95 High 0.00-0.50 10*3/uL LAB [id number] BASOPHILS (10*3/UL) IN BLOOD BY CALCULATION 0.14 0.00-0.20 10*3/uL LAB 1410 MYELOCYTES (10*3/UL) IN BLOOD BY CALCULATION 0.26 High 0.00 10*3/uL LAB 114 VARIANT LYMPHOCYTES (10*3/UL) IN BLOOD BY CALCULATION 0.00 0.00 10*3/uL LAB [id number] PLATELETS GIANT PRESENCE IN BLOOD BY LIGHT MICROSCOPY Present LAB [id number] NEUTROPHILS/100 LEUKOCYTES IN BLOOD BY AUTOMATED COUNT 83.3 High 40.0-72.0 % LAB [id number] LYMPHOCYTES/100 LEUKOCYTES IN BLOOD BY AUTOMATED COUNT 8.7 Low 20.0-45.0 % LAB [id number] MONOCYTES/100 LEUKOCYTES IN BLOOD BY AUTOMATED COUNT 1.3 Low 5.0-12.0 % LAB [id number] EOSINOPHILS/100 LEUKOCYTES IN BLOOD BY AUTOMATED COUNT 4.7 0.0-6.0 % LAB [id number] BASOPHILS/100 LEUKOCYTES IN BLOOD BY AUTOMATED COUNT 0.7 0.0-1.0 % LAB 2633 PLASMA CELLS/100 LEUKOCYTES IN BLOOD 0 0 % Performed By: #### [id number] # ### [facility] ([facility]) [address] [place] [address] 30 Observed: 07/03/2024 8:02 PM Status: COMPLETED Source: [facility] The patient is Moderately St able - Low risk of patient condition declining or worsening The patient's goals for the shift include comfort The clinical goals for the shift include comfort, rest PROGRESS Observed: 07/03/2024 12:14 PM Status: COMPLETED Source: [facility] Hospital Medicine Daily Progress Note - 07/03/2024 12:14 PM; Room: [address] [place] [address] Admission: 07/01/2024 9:06 PM; Length of stay: 2 days THE HOSPITALIST TEAM PREFERS TO USE [employer] FOR NON-URGENT COMMUNICATION 7AM-7PM. IF I DO NOT RESPOND WITHIN 20 MINUTES OR URGENT MATTERS, PLEASE CALL THROUGH THE SCREEN STRETCHER. FROM 7PM-7AM, PLEASE PAGE [phone](COVR). Code Status: Full Code Barriers to Discharge: Advancing diet Expected Discharge Date: 07/04/24 Discharge Destination: home Overview Patient is seen for evaluation and management of melena, generalized weakness. Subjective Patient was seen and examined at bedside this morning. She was alert awake and oriented. He denied any active complaints. Patient stated she had a small smear of stool, which was still dark this morning. Patient has been on clear liquid diet, advancing to regular diet this morning. Physical Exam Visit Vitals BP (!) 101/49 Pulse 74 Temp 36.8 ???C (98.2 ???F) (Temporal) Resp 21 Intake/Output Summary (Last 24 hours) at 07/03/2024 1214 Last data filed at 07/03/2024 0729 Gross per 24 hour Intake 355.12 ml Output -- Net 355.12 ml Physical Exam Constitutional: Appearance: Normal appearance. Eyes: General: Scleral icterus present. Cardiovascular: Rate and Rhythm: Normal rate and regular rhythm. Pulses: Normal pulses. Heart sounds: Normal heart sounds. Pulmonary: Effort: Pulmonary effort is normal. Breath sounds: Normal breath sounds. Abdominal: General: Abdomen is flat. Palpations: Abdomen is soft. Skin: General: Skin is warm. Neurological: General: No focal deficit present. Mental Status: She is alert and oriented to person, place, and time. Estimated body mass index is 25.54 kg/m??? as calculated from the following: Height as of this encounter: 1.626 m (5' 4 ). Weight as of this encounter: 67.5 kg (148 lb 13 oz). Active Inpatient Problems Principal Problem: GI bleed Active Problems: Posthemorrhagic anemia Primary hypertension Hypokalemia Liver mass Obstructive jaundice (CMS/HCC) Assessment and Plan Acute blood loss anemia secondary to duodenal ulcer Patient's hemoglobin dropped to 8.1, received 2 PRBC transfusions. EGD performed on 07/02 showed a small duodenal ulcer with active oozing, likely caused by direct pressure from biliary stent on duodenal wall. The stent has been repositioned. Hemostasis achieved. Continue Protonix twice a day. 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 Balloon dilatation of CBD followed by brushing and biopsies were performed, 2 biliary stents placed into left intrahepatic ducts after sphincterotomy achieving good biliary drainage. Biopsy results pending. Rectal mass concerning for adenocarcinoma Flexible sigmoidoscopy on 06/28 showed 5 cm circumferential polypoid rectal mass extends from the dentate line, involving rectal folds, biopsies obtained Leukocytosis likely reactive in the setting of recent stenting and possible malignancy Primary hypertension Hold losartan, metoprolol as patient's blood pressure is borderline. Hypokalemia Supplementation ordered VTE Prophylaxis: Contraindicated due to GI bleed Scheduled Meds pantoprazole, 40 mg, oral, BID AC Pertinent Investigations Hematology: Results from last 7 days Lab Units 07/03/24 0713 07/02/24 2104 07/02/24 1417 07/02/24 0356 07/01/24 2159 WBC AUTO 10*3/uL 19.30* -- 19.51* -- 22.21* HEMOGLOBIN g/dL 8.9* 8.9* 9.2* 9.2* < > 8.1* HEMATOCRIT % 27.2* 27.3* 27.7* 27.8* < > 24.2* MCV fL 84.7 -- 84.0 -- 89.0 PLATELETS AUTO 10*3/uL 266 -- 262 -- 259 INR -- -- 1.28* -- 1.29* < > = values in this interval not displayed. Chemistry: Results from last 7 days Lab Units 07/03/24 0923 07/02/24 0553 07/01/242158 SODIUM mmol/L 133* 138 135* POTASSIUM mmol/L 3.2* 3.6 3.3* CHLORIDE mmol/L 105 111* 108* CO2 mmol/L 21 21 19* BUN mg/dL 20 28* 30* CREATININE mg/dL 0.72 0.67 0.66 GLUCOSE mg/dL 128* 87 84 MAGNESIUM mg/dL 1.7* 1.7* -- CALCIUM mg/dL 7.6* 7.3* 7.4* Results from last 7 days Lab Units 07/03/24 0923 07/02/24 0553 07/01/24 2159 AST U/L 158* 173* 192* ALT U/L 168* 178* 202* ALK PHOS U/L 746* 613* 682* BILIRUBIN TOTAL mg/dL 9.5* 10.5* 10.7* BILIRUBIN DIRECT mg/dL 5.7* -- 6.1* LIPASE U/L -- 56 95* Results from last 7 days Lab Units 06/28/24 1254 POCT GLUCOSE mg/dL 96 Historical Values: (Includes values prior to this admission) No results found for: PREALBUMIN , TSH , T3FREE , FREET4 , CORTISOL , FEV1 , YYW1FOV , DLCO , RVSP , HDL , LDL No results found for: ABARJBOH62 , IRON , TIBC , C3 , C4 , WILTON , CANCA , ASO , PSA , CEA , CA125 , CA199 , AFP , CA153 Imaging EGD Table formatting from the original result was not included. Esophagogastroduodenoscopy (EGD) Procedure Note Procedure: EGD with endoscopic management of bleeding ulcer. Indications: 79 y.o. female who was admitted with melena. The patient was recently seen for the history of obstructive jaundice. She had an ERCP with endoscopic ultrasound, fine-needle aspiration and biliary sphincterotomy with biliary stent placement on June 28, 2024. LFTs have been slowly improving. She also had a rectal mass that was biopsied. The patient is scheduled to have an EGD to assess a potential source for melena. Sedation: MAC Medications: EPINEPHrine (Adrenalin) 1 mg/10mL injection 10 mL (Totals for administrations occurring from 1737 to 1826 on 07/02/24) Attending Physician: Bradley Díaz MD Procedure Details: Informed consent was obtained for the procedure, including sedation. Risks of infection, perforation, hemorrhage, adverse drug reaction, and aspiration were discussed. The patient was placed in the left lateral decubitus position. The patient was monitored continuously with ECG tracing, pulse oximetry, blood pressure monitoring, and direct observation. The gastroscope was inserted into the mouth and advanced under direct vision to second portion of the duodenum. A careful inspection was made as the gastroscope was withdrawn, including a retroflexed view of the proximal stomach; findings and interventions are described below. Appropriate photodocumentation was obtained. Findings: The examination of the esophagus and the stomach were unremarkable. No blood was identified within the esophagus or the stomach. The examination of the duodenal bulb was unremarkable. The examination of the second part of the duodenum revealed to plastic biliary stent protruding through the papilla into the duodenal lumen. One of the stent was abutting the opposite duodenal wall causing small ulceration that was oozing small amount of blood. The stent position was readjusted using rat-tooth forceps. 3 hemoclips were deployed at the site of bleeding followed by injection of 10 mL of 1 in 10,000 epinephrine. Complete hemostasis was achieved. Specimens: No specimens collected Complications: None Estimated blood loss: Minimal Disposition: Home Condition: stable Impression: Small duodenal ulcer oozing blood caused by a direct pressure of the biliary stent on the opposite wall of the second part of the duodenum. The position of the stent was adjusted away from the duodenum wound and the site of the bleeding was clipped with. Hemoclips and injected with epinephrine. Complete hemostasis was achieved. The site of the sphincterotomy was unremarkable and bile was noted draining from the common bile duct as as well as from the biliary stents. Recommendations: Start clear liquid diet. Start IV PPI. Follow-up H&H Awaiting histopathology results from previous ERCP/EUS and flexible sigmoidoscopy with biopsies. Further plan depends upon the histopathology results. Attending Attestation: I performed the procedure. Discharge Planning Expected Discharge Disposition: Home or Self Care () Signed Ioana Cano MD [facility] Medicine 07/03/2024 12:14 PM PROGRESS Observed: 07/03/2024 11:04 AM Status: COMPLETED Source: [facility] Attestation signed by Silvia Lacy RD at 07/03/2024 12:[address] reviewed and agrees with sports team marketing intern's nutrition assessment. Monitor PO intakes and consult RD as needed. Adult Nutrition Assessment: Name: Jenna Kumar Date: 1945 Date of Visit: 07/03/24 Admission Dx: Hyperbilirubinemia [E80.6] Jaundice [R17] GI bleed [K92.2] Abnormal LFTs [R79.89] Fall, initial encounter [W19.XXXA] Gastrointestinal hemorrhage, unspecified gastrointestinal hemorrhage type [K92.2] Acute pancreatitis, unspecified complication status, unspecified pancreatitis type [K85.90] Reason for assessment: high risk Information obtained from: patient, medical record, and nursing Past Medical History: Diagnosis Date Anxiety Bundle branch block Heart disease Hypertension Current Medications: pantoprazole, 40 mg, oral, BID AC Labs: 0 Lab Value Date/Time POCGLU 96 06/28/2024 1254 BUN 20 07/03/2024 0923 CREATININE 0.72 07/03/2024 0923 NA 133 (L) 07/03/2024 0923 K 3.2 (L) 07/03/2024 0923 MG 1.7 (L) 07/03/2024 0923 HGB 8.9 (L) 07/03/2024 0713 HGB 8.9 (L) 07/03/2024 0713 WBC 19.30 (H) 07/03/2024 0713 ALP: 613 AST: 173 ALT 178: Total Bili: 10.5 Allergies: Allergies Allergen Reactions Penicillin Hives Sulfadiazine Hives Nutrition Problems: Swallowing Assessment: Pt denies difficulty with swallowing. Mouth: Pt denies difficulty with chewing. Abdominal Assessment: Last BM on 07/02/24 noted to be black and bloody r/t GI bleed. Pt endorses recent diarrhea. Pt noted some nausea after procedure yesterday. Appetite: Fair Cognition: A&O x4 Physical Findings: Jaundice Skin Integrity: Intact. 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 EGD on 07/02/24, noted GI bleed was resolved with stent repositioning Nutrition Data/Clinical Indicators of Nutrition Status: Height: 162.6 cm (5' 4 ) Weight: 67.5 kg (148 lb 13 oz) BMI (Calculated): 25.53 Wt Readings from Last 10 Encounters: 07/03/24 67.5 kg (148 lb 13 oz) 06/28/24 68.4 kg (150 lb 12.7 oz) surgery 09/12/18 66.2 kg (146 lb) IBW: 54.5 kg UBW: 145-150 lb per patient. Weight change: Pt suspects some minor weight loss in the last week r/t poor intakes, and diarrhea, but otherwise stable. Pt noted she was 150 lb at doctor's last week. Limited documented wt hx suggests weight is stable. Nutrition Assessment: RN reports pt was liberated from clear liquid diet to regular diet this morning. Spoke with patient who noted she had just ordered breakfast. Pt reports a low appetite, but noted it is improving. Pt noted she feels she is getting stronger. Pt consumed about half of the clear liquid diet tray this morning and tolerated it well. Pt reports not being able to eat much since last (06/27) r/t GI symptoms and procedures. Prior to that pt reports good access to food, able to grocery shop and cook for herself. No special diets APPLIED BEHAVIOR SPECIALIST. Pt consumed 3 meals per day of coffee, cereal, eggs, Spanish yogurt, cottage cheese (breakfast), cheese, bread, blueberries, walnut (lunch) and soup, meat, and potatoes (dinner) Dietary Orders (From admission, onward) Start Ordered 07/03/24 1010 Regular Diet Diet effective now Question: Room Service? Answer: Yes 07/03/24 1009 07/02/24 1847 Special Kitchen Request Once Comments: Fruit cup, fresh fruit, auto fill remainder of tray 07/02/24 1846 Nutrition Risk: Moderate Nutrition Needs: Needs based on: ideal body weight (54.5 kg) Calorie needs: 2393-6663 kcals/day based on Equation: 25-30 kcal/kg Protein needs: 55-65 g/day based on 1-1.2 g/kg Fluid needs: 1363 ml/day based on 25 ml/kg Nutrition Diagnosis: Altered GI function related to gastrointestinal bleed as evidenced by blood in stools, diarrhea, and EGD findings. Malnutrition Assessment: Per Registered Dietitian assessment and evaluation, patient does not currently meet criteria OR there is not enough information to support the diagnosis of malnutrition per the clinical criteria set by the Academy of Nutrition and Dietetics (AND) and the [place] Society of Enteral and Parenteral Nutrition (ASPEN). Treatment Plan: Continue with regular diet as ordered. Monitor for tolerance from clear liquids. Adjust recommendations prn Monitor GI function and bowel movements, and medically manage. Monitor weight and avoid unintentional weight loss. Goals: Adequate po intakes (kcals and protein); >75% meals No significant unintentional wt loss Tolerate diet advancements GI fxn wnl To reach the Clinical Dietitian, please utilize Section 101 chat Monday-Monday from 8AM-4PM or call extension [phone]. For weekends (Monday-Monday) and hols, the Clinical Dietitian can be reached via pager ([phone]) from 9AM-3PM. The Clinical Nutrition Department is unable to respond to Section 101 chat messages on Sundays and s. HEPATIC FUNCTION PANEL Collected: 07/03/2024 9:23 AM Status: UNK Source: [facility] TYPE CODE TESTS RESULT OUT OF RANGE REFERENCE UNITS LAB [id number] BILIRUBIN TOTAL (MG/DL) IN SER/PLAS 9.5 High 0.3-1.0 mg/dL LAB [id number] BILIRUBIN DIRECT (MG/DL) IN SER/PLAS 5.7 High 0-0.2 mg/dL LAB [id number] ALKALINE PHOSPHA TASE (U/L) IN SER/PLAS 746 High 34-104 U/L LAB [id number] ASPARTATE AMINOTRANSFERASE (SGOT) (U/L) IN SER/PLAS 158 High 13-39 U/L LAB [id number] ALANINE AMINOTRANSFERASE (SGPT) (U/L) IN SER/PLAS 168 High 7-52 U/L LAB [id number] PROTEIN (G/DL) I N SER/PLAS 4.2 Low 6.0-8.3 g/dL LAB [id number] ALBUMIN (G/DL) I N SER/PLAS 2.4 Low 3.5-5.7 g/dL Performed By: #### [id number] ### # [facility] ([facility]) [address] [place] [address] MAGNESIUM Collected: 07/03/2024 9:23 AM Status: UN K Source: [facility] TYPE CODE TESTS RESULT OUT OF RANGE REFERENCE UNITS LAB [id number] MAGNESIUM (MG/DL) IN SER/PLAS 1.7 Low 1.9-2.7 mg/dL Performed By: #### [id number] ## ## [facility] ([facility]) [address] [place] [address] BASIC METABOLIC PANEL Collected: 2024 9:23 AM Status: UNK Source: [facility] TYPE CODE TESTS RESULT OUT OF RANGE REFERENCE UNITS LAB [id number] SODIUM (MMOL/L) IN SER/PLAS 133 Low 136-145 mmol/L LAB 4137943 POTASSIUM (MMOL/L) IN SER/PLAS 3.2 Low 3.5-5.1 mmol/L LAB [id number] CHLORIDE (MMOL/L) IN SER/PLAS 105 98-107 mmol/L LAB [id number] CARBON DIOXIDE, TOTAL (MMOL/L) IN SER/PLAS 21 21-31 mmol/L LAB [id number] UREA NITROGEN (MG/DL) IN SER/PLAS 20 7-25 mg/dL LAB [id number] CREATININE (MG/DL) IN SER/PLAS 0.72 0.60-1.20 mg/dL LAB 2761101 GLUCOSE (MG/DL) IN SER/PLAS 128 High 70-100 mg/dL LAB [id number] CALCIUM (MG/DL) IN SER/PLAS 7.6 Low 8.6-10.3 mg/dL LAB [id number] ANION GAP IN SER/PLAS 10 7-20 mmol/L LAB [id number] GLOMERULAR FILTRATION RATE ML/MIN/1.73 SQ M.PREDICTED 83.9 >60.0 mL/min/ 1.73m*2 Result Comment: [facility]???s estimated glomerular filtration rate (eGFR) will [...] disproportionately affect any one group of individuals. LAB [id number] UREA NITROGEN/CREA TININE (MASS RATIO) IN SER/PLAS 27.8 NA Performed By: #### [id number] ### # [facility] ([facility]) [address] [place] [address] PROGRESS Observed: 07/03/2024 9:08 AM Status: COMPLETED Source: [facility] 07/03/24 0907 Admission Assessment Questions Verify insurance with patient Yes Do you understand medical disease or what brought you into the hospital? Yes Who is your current PCP? Mayito Costello, DO Can I schedule a follow up appointment for you at the time of discharge? No (pt will schedule) Do you understand why you are taking your current medications? Yes Are you taking your medications as prescribed? Yes Did patient provide teach back? Yes Pharmacy Bedside Delivery Status Not Interested Does the patient have a medical case manager assigned to them through their insurance? No Living Arrangement (Current/Prior to Hospitalization) Private residence Does the patient have history of HHC or SNF? No (denies needs) Assistive Device Not applicable Patient's goal for discharge home Was patient reminded that goal for discharge is 11am? No Does the patient have transportation at discharge? Yes (son) Type of Residence Private residence Is PT/OT appropriate? No Is PT/OT ordered? No Is SW consult appropriate? No Is SW consult ordered? No Do you understand the benefits of MyChart? No Were you able to send link and activate MyChart? No 07/03 Admitted for GI bleed and weakness, initiated on protonix drip. GI consulted; EGD yesterday, now advancing to CLD. Continue to trend LFTs. From home with , denies needs. 30 Observed: 07/03/2024 8:38 AM Status: COMPLETED Source: [facility] The patient is Moderately St able - Low risk of patient condition declining or worsening The patient's goals for the shift include comfort The clinical goals for the shift include comfort, rest PROGRESS Observed: 07/03/2024 8:33 AM Status: COMPLETED Source: [facility] Teaching GI Service Con sult Gastroenterology/Hepatology Progress Note IDENTIFYING DATA PATIENT: Jenna Kumar ADMIT DATE: 07/01/2024 TIME OF EVALUATION: 07/03/2024 8:34 AM HOSPITAL STAY: LOS: 2 days REASON FOR HOSPITALIZATION: Hematochezia SUBJECTIVE/INTERVAL HISTORY Jenna Kumar's overnight events were reviewed. The patient???s hemoglobin has increased from 8.9 to 9.2. She denies overt bleeding and has not had a bowel movement since the procedure. She does endorse some fatigue, otherwise she denies complaints. WBC 19.30 from 19.51. She is tolerating a clear liquid diet well. LFTs remain elevated but are trending down. Endoscopic evaluation identified a small duodenal ulcer with active oozing, likely due to direct pressure from the biliary stent on the duodenal wall. The stent was repositioned to relieve pressure, and endoscopic hemostasis was successfully achieved using hemoclips and epinephrine injection. The sphincterotomy site appeared unremarkable, and bile was seen draining appropriately from the common bile duct and biliary stents. The findings were reviewed with the patient, who verbalized understanding and agreement with the plan of care. LFT's pending. OBJECTIVE MEDICATIONS SCHEDULED: @MEDSCURRENTMD@ PRNs: Physical VITALS: BP 94/79 Pulse 77 Temp 36.9 ???C (98.4 ???F) (Temporal) Resp 21 Ht 1.626 m (5' 4 ) Wt 67.5 kg (148 lb 13 oz) SpO2 95% BMI 25.54 kg/m??? GEN: Alert and oriented x3, NAD HEENT: Atraumatic, normocephalic CV: No edema visualized PULM: Respirations even and unlabored ABD: Soft, non-tender, non-distended NEURO: Moves all 4 extremities spontaneously, answers questions appropriately LABS AND IMAGING CBC: Lab Results Component Value Date WBC 19.51 (H) 07/02/2024 RBC 3.31 (L) 07/02/2024 HGB 8.9 (L) 07/03/2024 HCT 27.3 (L) 07/03/2024 MCV 84.0 07/02/2024 RDW 22.8 (H) 07/02/2024 PLT 262 07/02/2024 CMP: Lab Results Component Value Date NA 138 07/02/2024 K 3.6 07/02/2024 CL 111 (H) 07/02/2024 CO2 21 07/02/2024 BUN 28 (H) 07/02/2024 PROT 3.7 (L) 07/02/2024 IMAGING: Esophagogastroduodenoscopy (EGD) Procedure Note 07/03/2024 Impression: Small duodenal ulcer oozing blood caused by a direct pressure of the biliary stent on the opposite wall of the second part of the duodenum. The position of the stent was adjusted away from the duodenum wound and the site of the bleeding was clipped with. Hemoclips and injected with epinephrine. Complete hemostasis was achieved. The site of the sphincterotomy was unremarkable and bile was noted draining from the common bile duct as as well as from the biliary stents. Recommendations: Start clear liquid diet. Start IV PPI. Follow-up H&H Awaiting histopathology results from previous ERCP/EUS and flexible sigmoidoscopy with biopsies. Further plan depends upon the histopathology results. ASSESSMENT AND PLAN Jenna Kumar is a 79 y.o. female with a history of left bundle branch block, transferred for evaluation of new-onset gastrointestinal bleeding and progressive fatigue. She initially presented with jaundice, white stools, and dark urine in early June, prompting workup revealing cholestasis and hepatic dysfunction. 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 Endoscopic evaluation on 06/28/2024, including ERCP with balloon dilation and stent placement, revealed a high-grade hilar stricture, a large hepatic mass, and a common hepatic duct mass. Post-procedure, she developed worsening fatigue, anorexia, pruritus, dark yellow urine, and recurrent dark red rectal bleeding. Labs indicate acute blood loss anemia (Hgb 8.1), Acute Blood Loss Anemia The patient experienced dark red rectal bleeding accompanied by worsening fatigue. Hemoglobin levels declined to 8.1 g/dL, necessitating the transfusion of 2 units of packed red blood cells (PRBCs). An EGD performed on 07/02/2024 identified a small duodenal ulcer with active oozing, likely caused by direct pressure from the biliary stent on the duodenal wall. The stent was repositioned to alleviate pressure, and endoscopic hemostasis was successfully achieved using hemoclips and epinephrine injection. The sphincterotomy site appeared unremarkable, and bile was draining appropriately from the common bile duct and biliary stents. 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 EGD with EUS/ERCP on 06/28/2024 revealed a high-grade hilar stricture with a diffusely dilated left intrahepatic biliary system. The right intrahepatic ducts could not be opacified. Procedures included balloon dilation of the common bile duct, followed by brushing and biopsies. Two biliary stents were placed into the left intrahepatic ducts after sphincterotomy, achieving good biliary drainage. A single 4 Ecuadorean x 3 cm pigtail pancreatic duct stent was placed prophylactically. A poorly demarcated left hepatic lobe lesion (15.4 mm x 14.5 mm) was biopsied via fine-needle aspiration. Large Left Hepatic Mass and Mass Within the Common Hepatic Duct Rectal Mass Concerning for Adenocarcinoma A 5 cm circumferential polypoid rectal mass extends from the dentate line, involving rectal folds. Flexible sigmoidoscopy on 06/28/2024 with multiple biopsies was performed, although poor colonic preparation was noted. Differential diagnosis includes primary rectal adenocarcinoma, squamous cell carcinoma, and lymphoma. Leukocytosis with Possible Biliary Infection Versus Reactive Process White blood cell count is elevated at 22.21. Recent biliary stent placement. Plan: OK to advance diet from GI perspective. Protonix IV 40 mg BID Awaiting histopathology results from previous ERCP/EUS and flexible sigmoidoscopy with biopsies. Further plan depends upon the histopathology results. Trend LFT's. Trend H&H and transfuse as needed Monitor for overt bleeding Avoid hepatotoxic medication. Medical management per primary The case will be discussed with the attending physician For Questions please contact us at: [facility] GI Service 6 am to 4 pm weekdays in house Phone extension: [phone] 4 pm to 6 am or weekends please contact the paradi operator to page the fellow applications support lead ANES Observed: 07/03/2024 8:07 AM Status: COMPLETED Source: [facility] Patient: Jenna Kumar Procedure Summary Date: 07/02/24 Room / Location: [facility] Main Operating Room Anesthesia Start: 1753 Anesthesia Stop: 1830 Procedure: EGD Diagnosis: GI bleed Scheduled Providers: Bradley Díaz MD Responsible Provider: Paulie Wolfe MD Anesthesia Type: MAC ASA Status: 3 Anesthesia Type: MAC Vitals Value Taken Time BP 129/59 07/03/24 0401 Temp 36 ???C (96.8 ???F) 07/02/242022 Pulse 72 07/03/24 0807 Resp 16 07/03/24 0807 SpO2 92 % 07/03/24 0807 Vitals shown include unfiled device data. Anesthesia Post Evaluation Patient location during evaluation: PACU Patient participation: complete - patient participated Level of consciousness: sleepy but conscious Pain management: adequate (Needed additional pain medication, also asked Dr. Díaz to see patient, he believes it was residual air) Airway patency: patent Cardiovascular status: acceptable Respiratory status: acceptable Hydration status: acceptable Patient is hemodynamically stable and is able to be discharged from PACU per anesthesia protocol. No notable events documented. 36 Observed: 07/03/2024 8:02 AM Status: COMPLETED Source: [facility] EGD/EUS/ERCP/flex sigmoidosc opy procedure notes and pathology results faxed to referring office of Dr. Mayito Costello @ [phone] CBC WITH AUTO DIFFERENTIAL Collected: 07/03/2024 7:13 AM Status: UNK Source: [facility] TYPE CODE TESTS RESULT OUT OF RANGE REFERENCE UNITS LAB [id number] LEUKOCYTES(10*3/ UL) IN BLOOD BY AUTOMATED COUNT 19.30 High 4.00-10.60 10*3/uL LAB [id number] ERYTHROCYTES (10*6/UL) IN BLOOD BY AUTOMATED COUNT 3.21 Low 3.80-5.00 10*6/uL LAB [id number] HEMOGLOBIN (G/DL) IN BLOOD 8.9 Low 12.0-15.0 g/dL LAB [id number] HEMATOCRIT (%) IN BLOOD BY AUTOMATED COUNT 27.2 Low 36.0-48.0 % LAB [id number] ERYTHROCYTE MEAN CORPUSCULAR VOLUME (FL) BY AUTOMATED COUNT 84.7 82.0-98.0 fL LAB [id number] ERYTHROCYTE MEAN CORPUSCULAR HEMOGLOBIN (PG) BY AUTOMATED COUNT 27.7 27.0-33.0 pg LAB [id number] ERYTHROCYTE MEAN CORPUSCULAR HEMOGLOBIN CONCENTRATION (G/DL) BY AUTOMATED 32.7 32.0-35.0 g/dL LAB [id number] ERYTHROCYTE DISTRIBUTION WIDTH (RATIO) BY AUTOMATED COUNT 23.9 High 11.5-15.0 % LAB [id number] PLATELETS (10*3/UL) IN BLOOD AUTOMATED COUNT 266 150-400 10*3/uL LAB 254 NRBC (PER 100 WBCS) BY AUTOMATED COUNT 0.1 High 0 % Performed By: #### [id number] # ### [facility] ([facility]) [address] [place] [address] MANUAL DIFFERENTIAL Collected: 07/03/2024 7:[address] atus: UNK Source: [facility] TYPE CODE TESTS RESULT OUT OF RANGE REFERENCE UNITS LAB 107 METAMYELOCYTES/1 0 0 LEUKOCYTES IN BLOOD CELLAVISION 1.4 High 0.0-0.0 % LAB [id number] MYELOCYTES/100 LEUKOCYTES IN BLOOD CELLAVISION 1.3 High 0.0-0.0 % LAB 109 VARIANT LYMPHOCYTES/100 LEUKOCYTES IN BLOOD CELLAVISION 0.0 0.0-0.0 % LAB [id number] NEUTROPHILS (10*3/UL) IN BLOOD BY CALCULATION 16.0 High 1.6-7.6 10*3/uL LAB [id number] LYMPHOCYTES (10*3/UL) IN BLOOD BY CALCULATION 2.22 1.20-4.00 10*3/uL LAB [id number] MONOCYTES (10*3/UL) IN BLOOD BY CALCUATION 0.39 0.10-1.00 10*3/uL LAB [id number] EOSINOPHILS (10*3/UL) IN BLOOD BY CALCULATION 0.14 0.00-0.50 10*3/uL LAB [id number] BASOPHILS (10*3/UL) IN BLOOD BY CALCULATION 0.00 0.00-0.20 10*3/uL LAB 110 METAMYELOCYTES (10*3/UL) IN BLOOD BY CALCULATION 0.27 High 0.00 10*3/uL LAB 1410 MYELOCYTES (10*3/UL) IN BLOOD BY CALCULATION 0.25 High 0.00 10*3/uL LAB 114 VARIANT LYMPHOCYTES (10*3/UL) IN BLOOD BY CALCULATION 0.00 0.00 10*3/uL LAB [id number] ANISOCYTOSIS PRESENCE IN BLOOD BY LIGHT MICROSCOPY Marked LAB [id number] POIKILOCYTOSIS (PRESENCE) IN BLOOD BY LIGHT MICROSCOPY Slight LAB 1890887 POLYCHROMASIA IN BLOOD BY LIGHT MICROSCOPY Slight LAB 1385901 PLATELETS GIANT PRESENCE IN BLOOD BY LIGHT MICROSCOPY Present LAB [id number] NEUTROPHILS/100 LEUKOCYTES IN BLOOD BY AUTOMATED COUNT 83.1 High 40.0-72.0 % LAB [id number] LYMPHOCYTES/100 LEUKOCYTES IN BLOOD BY AUTOMATED COUNT 11.5 Low 20.0-45.0 % LAB [id number] MONOCYTES/100 LEUKOCYTES IN BLOOD BY AUTOMATED COUNT 2.0 Low 5.0-12.0 % LAB [id number] EOSINOPHILS/100 LEUKOCYTES IN BLOOD BY AUTOMATED COUNT 0.7 0.0-6.0 % LAB [id number] BASOPHILS/100 LEUKOCYTES IN BLOOD BY AUTOMATED COUNT 0.0 0.0-1.0 % LAB 2633 PLASMA CELLS/100 LEUKOCYTES IN BLOOD 0 0 % Performed By: #### [id number] # ### [facility] ([facility]) [address] [place] [address] HEMOGLOBIN AND HEMATOCRIT, BLOOD Collected: 07/03/2024 7:13 AM Status: UNK Source: [facility] TYPE CODE TESTS RESULT OUT OF RANGE REFERENCE UNITS LAB [id number] HEMOGLOBIN (G/DL) IN BLOOD 8.9 Low 12.0-15.0 g/dL LAB [id number] HEMATOCRIT (%) IN BLOOD BY AUTOMATED COUNT 27.3 Low 36.0-48.0 % Performed By: #### [id number] ## ## [facility] ([facility]) [address] [place] [address] TELEPHONE Observed: 07/03/2024 12:00 AM Status: COMPLETED Source: [facility] [id number] Jenna Kumar 1945 F Date Provider Department Center 07/03/2024 [facility] No family history on file 30 Observed: 07/02/2024 9:24 PM Status: COMPLETED Source: [facility] The patient is Moderately St able - Low risk of patient condition declining or worsening The patient's goals for the shift include The clinical goals for the shift include VSS, Endoscopy HEMOGLOBIN AND HEMATOCRIT, BLOOD Collected: 07/02/2024 9:04 PM Status: UNK Source: [facility] TYPE CODE TESTS RESULT OUT OF RANGE REFERENCE UNITS LAB [id number] HEMOGLOBIN (G/DL) IN BLOOD 9.2 Low 12.0-15.0 g/dL LAB [id number] HEMATOCRIT (%) IN BLOOD BY AUTOMATED COUNT 27.7 Low 36.0-48.0 % Performed By: #### [id number] ## ## [facility] [address] [place] [address] [id number] Observed: 07/02/2024 6:25 PM Status: COMPLETED Source: [facility] Patient: Jenna Kumar Procedure Summary Date: 07/02/24 Room / Location: [facility] Main Operating Room Anesthesia Start: 1754 Anesthesia Stop: Procedure: EGD Diagnosis: GI bleed Scheduled Providers: Bradley Díaz MD Responsible Provider: Paulie Wolfe MD Anesthesia Type: MAC ASA Status: 3 Anesthesia Post Transport Note Transport to: PACU O2 Route: room air Patient Monitor: direct observation Transport: uneventful Patient condition is: stable ANES Observed: 07/02/2024 5:54 PM Status: COMPLETED Source: [facility] Patient: Jenna Kumar Procedure Information Date/Time: 07/02/24 1730 Scheduled providers: Bradley Díaz MD Procedure: EGD Location: [facility] Main Operating Room Relevant Problems Cardio (+) Primary hypertension Clinical information reviewed: Tobacco Allergies Meds Problems Med Hx Surg Hx OB Status Fam Hx Soc Hx Physical Exam Airway Mallampati: III TM distance: >3 FB Neck ROM: full Cardiovascular - normal exam Rhythm: regular Rate: normal Dental Comments: Lower partial Pulmonary Breath sounds clear to auscultation Abdominal - normal exam Other findings: Hypertension, LBBB Anesthesia Plan ASA 3 MAC The patient is not a current smoker. Education provided regarding risk of obstructive sleep apnea. intravenous induction Postoperative administration of opioids is intended. Anesthetic plan and risks discussed with patient. Plan discussed with CAA. Additional Equipment Requests PROTIME-INR Collected: 07/02/2024 2:17 PM Status: UN K Source: [facility] TYPE CODE TESTS RESULT OUT OF RANGE REFERENCE UNITS LAB [id number] PROTHROMBIN TIME (PT) IN PPP BY COAGULATION ASSAY 15.9 High 12.3-14.8 Seconds LAB [id number] INR IN PPP BY COAGULATION ASSAY 1.28 High 0.90-1.10 NA Result Comment: [facility] RECOMM ENDED INR FOR WARFARIN THERAPY CONDITION INR PROPHYLAXIS OF VENOUS THROMBOSIS 2-3 (HIGH-RISK SURGERY) TREATMENT OF VENOUS THROMBOSIS 2-3 TREATMENT OF PULMONARY EMBOLISM 2-3 PREVENTION OF SYSTEMIC EMBOLISM: 2-3 ACUTE MYOCARDIAL INFARCTION TISSUE HEART VALVES VALVULAR HEART DISEASE ATRIAL FIBRILLATION RECURRENT SYSTEMIC EMBOLISM MECHANICAL HEART VALVE 2.5-3.5 FROM: ORAL ANTICOAGULANTS. MECHANISM OF ACTION, CLINICAL EFFECTIVENESS, AND OPTIMAL THERAPEUTIC RANGE. CHEST 1995;108:231S-246S. Performed By: #### [id number] ## ## [facility] ([facility]) [address] [place] [address] CBC WITH AUTO DIFFERENTIAL Collected: 07/02/2024 2:17 PM Status: UNK Source: [facility] TYPE CODE TESTS RESULT OUT OF RANGE REFERENCE UNITS LAB [id number] LEUKOCYTES(10*3/ UL) IN BLOOD BY AUTOMATED COUNT 19.51 High 4.00-10.60 10*3/uL LAB [id number] ERYTHROCYTES (10*6/UL) IN BLOOD BY AUTOMATED COUNT 3.31 Low 3.80-5.00 10*6/uL LAB 1901304 HEMOGLOBIN (G/DL) IN BLOOD 9.2 Low 12.0-15.0 g/dL LAB [id number] HEMATOCRIT (%) IN BLOOD BY AUTOMATED COUNT 27.8 Low 36.0-48.0 % LAB [id number] ERYTHROCYTE MEAN CORPUSCULAR VOLUME (FL) BY AUTOMATED COUNT 84.0 82.0-98.0 fL LAB 1606417 ERYTHROCYTE MEAN CORPUSCULAR HEMOGLOBIN (PG) BY AUTOMATED COUNT 27.8 27.0-33.0 pg LAB [id number] ERYTHROCYTE MEAN CORPUSCULAR HEMOGLOBIN CONCENTRATION (G/DL) BY AUTOMATED 33.1 32.0-35.0 g/dL LAB [id number] ERYTHROCYTE DISTRIBUTION WIDTH (RATIO) BY AUTOMATED COUNT 22.8 High 11.5-15.0 % LAB [id number] PLATELETS (10*3/UL) IN BLOOD AUTOMATED COUNT 262 150-400 10*3/uL LAB 254 NRBC (PER 100 WBCS) BY AUTOMATED COUNT 0.1 High 0 % Performed By: #### [id number] # ### [facility] ([facility]) [address] [place] [address] MANUAL DIFFERENTIAL Collected: 07/02/2024 2:[address] atus: UNK Source: [facility] TYPE CODE TESTS RESULT OUT OF RANGE REFERENCE UNITS LAB [id number] MYELOCYTES/100 LEUKOCYTES IN BLOOD CELLAVISION 0.7 High 0.0-0.0 % LAB 109 VARIANT LYMPHOCYTES/100 LEUKOCYTES IN BLOOD CELLAVISION 0.0 0.0-0.0 % LAB [id number] NEUTROPHILS (10*3/UL) IN BLOOD BY CALCULATION 16.8 High 1.6-7.6 10*3/uL LAB [id number] LYMPHOCYTES (10*3/UL) IN BLOOD BY CALCULATION 1.29 1.20-4.00 10*3/uL LAB [id number] MONOCYTES (10*3/UL) IN BLOOD BY CALCUATION 0.76 0.10-1.00 10*3/uL LAB [id number] EOSINOPHILS (10*3/UL) IN BLOOD BY CALCULATION 0.51 High 0.00-0.50 10*3/uL LAB 3605131 BASOPHILS (10*3/UL) IN BLOOD BY CALCULATION 0.00 0.00-0.20 10*3/uL LAB 1410 MYELOCYTES (10*3/UL) IN BLOOD BY CALCULATION 0.14 High 0.00 10*3/uL LAB 114 VARIANT LYMPHOCYTES (10*3/UL) IN BLOOD BY CALCULATION 0.00 0.00 10*3/uL LAB [id number] ANISOCYTOSIS PRESENCE IN BLOOD BY LIGHT MICROSCOPY Moderate LAB [id number] POIKILOCYTOSIS (PRESENCE) IN BLOOD BY LIGHT MICROSCOPY Slight LAB 2998523 POLYCHROMASIA IN BLOOD BY LIGHT MICROSCOPY Slight LAB 9245195 PLATELETS GIANT PRESENCE IN BLOOD BY LIGHT MICROSCOPY Present LAB [id number] NEUTROPHILS/100 LEUKOCYTES IN BLOOD BY AUTOMATED COUNT 86.2 High 40.0-72.0 % LAB [id number] LYMPHOCYTES/100 LEUKOCYTES IN BLOOD BY AUTOMATED COUNT 6.6 Low 20.0-45.0 % LAB 1987174 MONOCYTES/100 LEUKOCYTES IN BLOOD BY AUTOMATED COUNT 3.9 Low 5.0-12.0 % LAB 3804039 EOSINOPHILS/100 LEUKOCYTES IN BLOOD BY AUTOMATED COUNT 2.6 0.0-6.0 % LAB [id number] BASOPHILS/100 LEUKOCYTES IN BLOOD BY AUTOMATED COUNT 0.0 0.0-1.0 % LAB 2633 PLASMA CELLS/100 LEUKOCYTES IN BLOOD 0 0 % Performed By: #### [id number] # ### [facility] ([facility]) [address] [place] [address] CONSULT Observed: 07/02/2024 11:09 AM Status: COMPLETED Source: [facility] Attestation signed by Bradley Díaz MD at 07/02/2024 5:51 PM The patient was seen and examined. Agree with assessment and plan. Melena, likely to be either post sphincterotomy bleeding or hemobilia. The patient had an ERCP with endoscopic ultrasound, fine-needle aspiration and biliary sphincterotomy with biliary stent placement June 28, 2024. LFTs have been slowly improving. She had a rectal mass that was biopsied. Plan for EGD with the front scope and side-viewing scope to assess the cause of upper GI bleeding. Initial Gastroenterology/Hepatology Consultation Note IDENTIFYING DATA PATIENT: Jenna Kumar ADMIT DATE: 07/01/2024 TIME OF EVALUATION: 07/02/2024 11:09 AM Reason for Consult: GI bleed gi bleed jaundice Admitting Physician: Ioana Cano MD HISTORY OF PRESENT ILLNESS Jenna Kumar is a 79 y.o. female with a past medical history of left bundle branch block was transferred from [facility] for further evaluation and management of a new-onset gastrointestinal bleed and progressive fatigue. Gastroenterology team was consulted for concern of melena and acute blood loss anemia. In early June 2024 the patient reported a history of white stools, dark urine, and jaundice since early June, prompting an initial evaluation by her PCP. Subsequent laboratory findings revealed significant cholestasis and hepatic dysfunction, leading to a referral to gastroenterology. A recent CT scan demonstrated findings concerning for rectal adenocarcinoma as well as a hepatic mass. Preoperative liver function tests showed a markedly elevated total bilirubin of 12.9, alkaline phosphatase of 1074, ALT 499, and AST 273. Endoscopic evaluation, including EGD with EUS, ERCP with balloon dilation and stent placement, and flexible sigmoidoscopy, was performed on 06/28/2024. The ERCP and EUS findings were significant for a high-grade common hepatic duct/hilar stricture, a large left hepatic mass, and a mass within the common hepatic duct. A balloon dilation of the common bile duct stricture was performed, biopsies were obtained, and two left intrahepatic duct stents were placed to relieve obstructive jaundice. A single pigtail pancreatic duct stent was placed for pancreatitis prophylaxis. Additionally, a flexible sigmoidoscopy revealed a 5 cm circumferential polypoid rectal mass extending from the dentate line. Since the procedure, the patient has experienced self-resolving mild right upper quadrant discomfort but reports worsening fatigue, anorexia, dark yellow urine, and multiple episodes of dark red rectal bleeding without formed stool. She also describes severe generalized pruritus. She denies abdominal pain, nausea, vomiting, reflux, or lower extremity edema. Emergency department. Imaging confirmed a 4.6 x 3.4 cm hypoattenuating hepatic lesion in segments 4A and B, highly suspicious for a primary hepatic neoplasm, possibly cholangiocarcinoma versus metastatic disease, in addition to a rectal mass. GI HISTORY EGD with EUS/ERCP: Identified a high-grade hilar stricture with a diffusely dilated left intrahepatic biliary system. The right intrahepatic ducts could not be opacified. A balloon dilation of the common bile duct was performed, followed by brushing and biopsies. Two biliary stents were placed into the left intrahepatic ducts after sphincterotomy, achieving good biliary drainage. A single 4 Ecuadorean x 3 cm pigtail pancreatic duct stent was placed prophylactically. Additionally, a poorly demarcated left hepatic lobe lesion measuring 15.4 mm x 14.5 mm was biopsied via fine-needle aspiration. Flexible sigmoidoscopy: Revealed a large 5 cm circumferential rectal mass extending from the dentate line, involving the rectal folds. Multiple biopsies were obtained. The colonic preparation was noted to be poor. The patient tolerated the procedures well without immediate complications, and estimated blood loss was minimal. She was discharged home in stable condition. SUMMARY TABLE Last EGD Last colonoscopy Primary GI physician PAST MEDICAL, SURGICAL, FAMILY, and SOCIAL HISTORY Past Medical History: Past Medical History: Diagnosis Date Anxiety Bundle branch block Heart disease Hypertension Past Surgical History: History reviewed. No pertinent surgical history. Family History: No family history on file. Social History: Social History Tobacco Use Smoking status: Never Smokeless tobacco: Never Substance Use Topics Alcohol use: Yes Alcohol/week: 2.0 standard drinks of alcohol Types: 2 Glasses of wine per week Allergies: Allergies Allergen Reactions Penicillin Hives Sulfadiazine Hives MEDICATIONS Home Medications: Prior to Admission medications Medication Sig Start Date End Date Taking? Authorizing Provider aspirin 81 mg EC tablet Take 81 mg by mouth in the morning. 07/02/24 Historical Provider, diazePAM (Valium) 2 mg tablet Take 2 mg by mouth every 12 (twelve) hours if needed for anxiety. 07/02/24 Historical Provider, losartan (Cozaar) 25 mg tablet Take 25 mg by mouth in the morning. 07/02/24 Historical Provider, metoprolol succinate XL (Toprol-XL) 25 mg 24 hr tablet Take 12.5 mg by mouth Twice daily at 6am and 6pm. Do not crush or chew. 07/02/24 Historical Provider, Current Medications: PRNs: REVIEW OF SYSTEMS See HPI, otherwise ROS negative as below CONSTITUTIONAL: negative HEENT: negative RESPIRATORY: negative CARDIOVASCULAR: negative GASTROINTESTINAL: as in HPI GENITOURINARY: negative OBJECTIVE DATA Vitals: BP 119/58 Pulse 77 Temp 36.7 ???C (98.1 ???F) Resp 19 Ht 1.626 m (5' 4 ) Wt 65.8 kg (145 lb) SpO2 96% BMI 24.89 kg/m??? GEN: Alert and oriented x3, NAD HEENT: Atraumatic, normocephalic CV: Regular rate and rhythm PULM: Breathing comfortably ABD: Soft, non-tender, non-distended NEURO: Moves all 4 extremities spontaneously LABS AND IMAGING CBC: Results from last 7 days Lab Units 07/02/24 0553 07/02/24 0356 07/01/242158 WBC AUTO 10*3/uL -- -- 22.21* RBC AUTO 10*6/uL -- -- 2.72* HEMOGLOBIN g/dL 8.6* 9.1* 8.1* HEMATOCRIT % 26.3* 27.8* 24.2* MCV fL -- -- 89.0 RDW % -- -- 17.7* PLATELETS AUTO 10*3/uL -- -- 259 PT/INR Results from last 7 days Lab Units 07/01/242158 PROTIME Seconds 16.0* INR 1.29* BMP: Results from last 7 days Lab Units 07/02/24 0553 07/01/242158 SODIUM mmol/L 138 135* POTASSIUM mmol/L 3.6 3.3* CHLORIDE mmol/L 111* 108* BUN mg/dL 28* 30* CREATININE mg/dL 0.67 0.66 EGFR mL/min/1.73m*2 87.8 88.1 GLUCOSE mg/dL 87 84 LFTs: Results from last 7 days Lab Units 07/02/24 0553 07/01/24 2159 BILIRUBIN TOTAL mg/dL 10.5* 10.7* BILIRUBIN DIRECT mg/dL -- 6.1* ALK PHOS U/L 613* 682* AST U/L 173* 192* ALT U/L 178* 202* ALBUMIN g/dL 2.2* 2.4* TOTAL PROTEIN g/dL 3.7* 4.2* B12/Folate/Iron studies: No results found for: [id number] , FOLATE , IRON , TIBC , UIBC , IRONSAT , FERRITIN Viral Hepatitis No results found for: HEPAIGM , HAV , HEPBSAG , HEPBSAB , HEPBEAB , HEPBIGM , HEPBCAB , HEPBCOREAB , HBVNAT , HCVSCR , HEPCAB , HCVNAT , HCVPCR , HCVTMA Liver workup No results found for: WILTON , SMOOTHMUSCAB , CERULOPLSM , [id number] , TTGA , IGA , TSH , FREET4 , AFP Pancreatitis Lab Results Component Value Date LIPASE 56 07/02/2024 CALCIUM 7.3 (L) 07/02/2024 ASSESSMENT AND PLAN Jenna Kumar is a 79 y.o. female with a history of left bundle branch block, transferred for evaluation of new-onset gastrointestinal bleeding and progressive fatigue. She initially presented with jaundice, white stools, and dark urine in early June, prompting workup revealing cholestasis and hepatic dysfunction. 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 Endoscopic evaluation on 06/28/2024, including ERCP with balloon dilation and stent placement, revealed a high-grade hilar stricture, a large hepatic mass, and a common hepatic duct mass. Post-procedure, she developed worsening fatigue, anorexia, pruritus, dark yellow urine, and recurrent dark red rectal bleeding. Labs indicate acute blood loss anemia (Hgb 8.1), Assessment: Acute blood loss anemia secondary to lower GI bleeding Dark red rectal bleeding with worsening fatigue Hemoglobin drop to 8.1, requiring transfusion of 2 units PRBC Flexible sigmoidoscopy findings suggest malignancy as a potential bleeding source Differential: Bleeding rectal mass, angiodysplasia, radiation proctitis EGD with EUS/ERCP 06/28/2024: Identified a high-grade hilar stricture with a diffusely dilated left intrahepatic biliary system. The right intrahepatic ducts could not be opacified. A balloon dilation of the common bile duct was performed, followed by brushing and biopsies. Two biliary stents were placed into the left intrahepatic ducts after sphincterotomy, achieving good biliary drainage. A single 4 Ecuadorean x 3 cm pigtail pancreatic duct stent was placed prophylactically. Additionally, a poorly demarcated left hepatic lobe lesion measuring 15.4 mm x 14.5 mm was biopsied via fine-needle aspiration. Flexible sigmoidoscopy 06/28/2024: Revealed a large 5 cm circumferential rectal mass extending from the dentate line, involving the rectal folds. Multiple biopsies were obtained. The colonic preparation was noted to be poor.The patient tolerated the procedures well without immediate complications, and estimated blood loss was minimal. She was discharged home in stable condition. 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 The right intrahepatic ducts could not be opacified. A balloon dilation of the common bile duct was performed, followed by brushing and biopsies. Two biliary stents were placed into the left intrahepatic ducts after sphincterotomy, achieving good biliary drainage. A single 4 Ecuadorean x 3 cm pigtail pancreatic duct stent was placed prophylactically. Additionally, a poorly demarcated left hepatic lobe lesion measuring 15.4 mm x 14.5 mm was biopsied via fine-needle aspiration. Large left hepatic mass and mass within the common hepatic duct Rectal mass concerning for adenocarcinoma 5 cm circumferential polypoid rectal mass extending from the dentate line Flexible sigmoidoscopy with biopsies obtained Poor colonic preparation noted Differential: Primary rectal adenocarcinoma, squamous cell carcinoma, lymphoma Acute kidney injury in the setting of gastrointestinal bleed and obstructive jaundice BUN 30 with metabolic acidosis (CO2 19, K 3.3) Volume depletion likely contributing factor Ongoing cholestatic liver dysfunction as a possible contributor Leukocytosis with possible biliary infection versus reactive process WBC 22.21, fever not documented Recent biliary stent placement could predispose to ascending cholangitis Plan: Follow-up with the hemoglobin and hematocrit every 6 hours. Transfuse PRBC for hemoglobin less than 8 given the cardiac history of bleeding IV Protonix drip. Keep the patient n.p.o. for possible endoscopic workup. Tentative planning for EGD with side-viewing scope today workup. Continue to trend the liver function test. Avoid hepatotoxic medication. Await pathology results from ERCP biopsies and EUS-guided [facility] GI team will continue to follow-up closely on the patient. This consult will be discussed with attending physician. If you have any questions please feel free to contact the GI Service. Thank you for allowing us to participate in the care of Jenna Kumar. Gastroenterology 6 am to 4 pm weekdays in house: [phone] 4 pm to 6 am or weekends: Please contact the paradi operator to page the fellow applications support lead HP Observed: 07/02/2024 11:09 AM Status: COMPLETED Source: [facility] Attestation signed by Bradley Díaz MD at 07/02/2024 5:51 PM The patient was seen and examined. Agree with assessment and plan. Melena, likely to be either post sphincterotomy bleeding or hemobilia. The patient had an ERCP with endoscopic ultrasound, fine-needle aspiration and biliary sphincterotomy with biliary stent placement June 28, 2024. LFTs have been slowly improving. She had a rectal mass that was biopsied. Plan for EGD with the front scope and side-viewing scope to assess the cause of upper GI bleeding. Initial Gastroenterology/Hepatology Consultation Note IDENTIFYING DATA PATIENT: Jenna Kumar ADMIT DATE: 07/01/2024 TIME OF EVALUATION: 07/02/2024 11:09 AM Reason for Consult: GI bleed gi bleed jaundice Admitting Physician: Ioana Cano MD HISTORY OF PRESENT ILLNESS Jenna Kumar is a 79 y.o. female with a past medical history of left bundle branch block was transferred from [facility] for further evaluation and management of a new-onset gastrointestinal bleed and progressive fatigue. Gastroenterology team was consulted for concern of melena and acute blood loss anemia. In early June 2024 the patient reported a history of white stools, dark urine, and jaundice since early June, prompting an initial evaluation by her PCP. Subsequent laboratory findings revealed significant cholestasis and hepatic dysfunction, leading to a referral to gastroenterology. A recent CT scan demonstrated findings concerning for rectal adenocarcinoma as well as a hepatic mass. Preoperative liver function tests showed a markedly elevated total bilirubin of 12.9, alkaline phosphatase of 1074, ALT 499, and AST 273. Endoscopic evaluation, including EGD with EUS, ERCP with balloon dilation and stent placement, and flexible sigmoidoscopy, was performed on 06/28/2024. The ERCP and EUS findings were significant for a high-grade common hepatic duct/hilar stricture, a large left hepatic mass, and a mass within the common hepatic duct. A balloon dilation of the common bile duct stricture was performed, biopsies were obtained, and two left intrahepatic duct stents were placed to relieve obstructive jaundice. A single pigtail pancreatic duct stent was placed for pancreatitis prophylaxis. Additionally, a flexible sigmoidoscopy revealed a 5 cm circumferential polypoid rectal mass extending from the dentate line. Since the procedure, the patient has experienced self-resolving mild right upper quadrant discomfort but reports worsening fatigue, anorexia, dark yellow urine, and multiple episodes of dark red rectal bleeding without formed stool. She also describes severe generalized pruritus. She denies abdominal pain, nausea, vomiting, reflux, or lower extremity edema. Emergency department. Imaging confirmed a 4.6 x 3.4 cm hypoattenuating hepatic lesion in segments 4A and B, highly suspicious for a primary hepatic neoplasm, possibly cholangiocarcinoma versus metastatic disease, in addition to a rectal mass. GI HISTORY EGD with EUS/ERCP: Identified a high-grade hilar stricture with a diffusely dilated left intrahepatic biliary system. The right intrahepatic ducts could not be opacified. A balloon dilation of the common bile duct was performed, followed by brushing and biopsies. Two biliary stents were placed into the left intrahepatic ducts after sphincterotomy, achieving good biliary drainage. A single 4 Ecuadorean x 3 cm pigtail pancreatic duct stent was placed prophylactically. Additionally, a poorly demarcated left hepatic lobe lesion measuring 15.4 mm x 14.5 mm was biopsied via fine-needle aspiration. Flexible sigmoidoscopy: Revealed a large 5 cm circumferential rectal mass extending from the dentate line, involving the rectal folds. Multiple biopsies were obtained. The colonic preparation was noted to be poor. The patient tolerated the procedures well without immediate complications, and estimated blood loss was minimal. She was discharged home in stable condition. SUMMARY TABLE Last EGD Last colonoscopy Primary GI physician PAST MEDICAL, SURGICAL, FAMILY, and SOCIAL HISTORY Past Medical History: Past Medical History: Diagnosis Date Anxiety Bundle branch block Heart disease Hypertension Past Surgical History: History reviewed. No pertinent surgical history. Family History: No family history on file. Social History: Social History Tobacco Use Smoking status: Never Smokeless tobacco: Never Substance Use Topics Alcohol use: Yes Alcohol/week: 2.0 standard drinks of alcohol Types: 2 Glasses of wine per week Allergies: Allergies Allergen Reactions Penicillin Hives Sulfadiazine Hives MEDICATIONS Home Medications: Prior to Admission medications Medication Sig Start Date End Date Taking? Authorizing Provider aspirin 81 mg EC tablet Take 81 mg by mouth in the morning. 07/02/24 Historical Provider, diazePAM (Valium) 2 mg tablet Take 2 mg by mouth every 12 (twelve) hours if needed for anxiety. 07/02/24 Historical Provider, losartan (Cozaar) 25 mg tablet Take 25 mg by mouth in the morning. 07/02/24 Historical Provider, metoprolol succinate XL (Toprol-XL) 25 mg 24 hr tablet Take 12.5 mg by mouth Twice daily at 6am and 6pm. Do not crush or chew. 07/02/24 Historical Provider, Current Medications: PRNs: REVIEW OF SYSTEMS See HPI, otherwise ROS negative as below CONSTITUTIONAL: negative HEENT: negative RESPIRATORY: negative CARDIOVASCULAR: negative GASTROINTESTINAL: as in HPI GENITOURINARY: negative OBJECTIVE DATA Vitals: BP 119/58 Pulse 77 Temp 36.7 ???C (98.1 ???F) Resp 19 Ht 1.626 m (5' 4 ) Wt 65.8 kg (145 lb) SpO2 96% BMI 24.89 kg/m??? GEN: Alert and oriented x3, NAD HEENT: Atraumatic, normocephalic CV: Regular rate and rhythm PULM: Breathing comfortably ABD: Soft, non-tender, non-distended NEURO: Moves all 4 extremities spontaneously LABS AND IMAGING CBC: Results from last 7 days Lab Units 07/02/24 0553 07/02/24 0356 07/01/242158 WBC AUTO 10*3/uL -- -- 22.21* RBC AUTO 10*6/uL -- -- 2.72* HEMOGLOBIN g/dL 8.6* 9.1* 8.1* HEMATOCRIT % 26.3* 27.8* 24.2* MCV fL -- -- 89.0 RDW % -- -- 17.7* PLATELETS AUTO 10*3/uL -- -- 259 PT/INR Results from last 7 days Lab Units 07/01/242158 PROTIME Seconds 16.0* INR 1.29* BMP: Results from last 7 days Lab Units 07/02/24 0553 07/01/242158 SODIUM mmol/L 138 135* POTASSIUM mmol/L 3.6 3.3* CHLORIDE mmol/L 111* 108* BUN mg/dL 28* 30* CREATININE mg/dL 0.67 0.66 EGFR mL/min/1.73m*2 87.8 88.1 GLUCOSE mg/dL 87 84 LFTs: Results from last 7 days Lab Units 07/02/24 0553 07/01/242158 BILIRUBIN TOTAL mg/dL 10.5* 10.7* BILIRUBIN DIRECT mg/dL -- 6.1* ALK PHOS U/L 613* 682* AST U/L 173* 192* ALT U/L 178* 202* ALBUMIN g/dL 2.2* 2.4* TOTAL PROTEIN g/dL 3.7* 4.2* B12/Folate/Iron studies: No results found for: [id number] , FOLATE , IRON , TIBC , UIBC , IRONSAT , FERRITIN Viral Hepatitis No results found for: HEPAIGM , HAV , HEPBSAG , HEPBSAB , HEPBEAB , HEPBIGM , HEPBCAB , HEPBCOREAB , HBVNAT , HCVSCR , HEPCAB , HCVNAT , HCVPCR , HCVTMA Liver workup No results found for: WILTON , SMOOTHMUSCAB , CERULOPLSM , [id number] , TTGA , IGA , TSH , FREET4 , AFP Pancreatitis Lab Results Component Value Date LIPASE 56 07/02/2024 CALCIUM 7.3 (L) 07/02/2024 ASSESSMENT AND PLAN Jenna Kumar is a 79 y.o. female with a history of left bundle branch block, transferred for evaluation of new-onset gastrointestinal bleeding and progressive fatigue. She initially presented with jaundice, white stools, and dark urine in early June, prompting workup revealing cholestasis and hepatic dysfunction. 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 Endoscopic evaluation on 06/28/2024, including ERCP with balloon dilation and stent placement, revealed a high-grade hilar stricture, a large hepatic mass, and a common hepatic duct mass. Post-procedure, she developed worsening fatigue, anorexia, pruritus, dark yellow urine, and recurrent dark red rectal bleeding. Labs indicate acute blood loss anemia (Hgb 8.1), Assessment: Acute blood loss anemia secondary to lower GI bleeding Dark red rectal bleeding with worsening fatigue Hemoglobin drop to 8.1, requiring transfusion of 2 units PRBC Flexible sigmoidoscopy findings suggest malignancy as a potential bleeding source Differential: Bleeding rectal mass, angiodysplasia, radiation proctitis EGD with EUS/ERCP 06/28/2024: Identified a high-grade hilar stricture with a diffusely dilated left intrahepatic biliary system. The right intrahepatic ducts could not be opacified. A balloon dilation of the common bile duct was performed, followed by brushing and biopsies. Two biliary stents were placed into the left intrahepatic ducts after sphincterotomy, achieving good biliary drainage. A single 4 Ecuadorean x 3 cm pigtail pancreatic duct stent was placed prophylactically. Additionally, a poorly demarcated left hepatic lobe lesion measuring 15.4 mm x 14.5 mm was biopsied via fine-needle aspiration. Flexible sigmoidoscopy 06/28/2024: Revealed a large 5 cm circumferential rectal mass extending from the dentate line, involving the rectal folds. Multiple biopsies were obtained. The colonic preparation was noted to be poor.The patient tolerated the procedures well without immediate complications, and estimated blood loss was minimal. She was discharged home in stable condition. 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 The right intrahepatic ducts could not be opacified. A balloon dilation of the common bile duct was performed, followed by brushing and biopsies. Two biliary stents were placed into the left intrahepatic ducts after sphincterotomy, achieving good biliary drainage. A single 4 Ecuadorean x 3 cm pigtail pancreatic duct stent was placed prophylactically. Additionally, a poorly demarcated left hepatic lobe lesion measuring 15.4 mm x 14.5 mm was biopsied via fine-needle aspiration. Large left hepatic mass and mass within the common hepatic duct Rectal mass concerning for adenocarcinoma 5 cm circumferential polypoid rectal mass extending from the dentate line Flexible sigmoidoscopy with biopsies obtained Poor colonic preparation noted Differential: Primary rectal adenocarcinoma, squamous cell carcinoma, lymphoma Acute kidney injury in the setting of gastrointestinal bleed and obstructive jaundice BUN 30 with metabolic acidosis (CO2 19, K 3.3) Volume depletion likely contributing factor Ongoing cholestatic liver dysfunction as a possible contributor Leukocytosis with possible biliary infection versus reactive process WBC 22.21, fever not documented Recent biliary stent placement could predispose to ascending cholangitis Plan: Follow-up with the hemoglobin and hematocrit every 6 hours. Transfuse PRBC for hemoglobin less than 8 given the cardiac history of bleeding IV Protonix drip. Keep the patient n.p.o. for possible endoscopic workup. Tentative planning for EGD with side-viewing scope today workup. Continue to trend the liver function test. Avoid hepatotoxic medication. Await pathology results from ERCP biopsies and EUS-guided [facility] GI team will continue to follow-up closely on the patient. This consult will be discussed with attending physician. If you have any questions please feel free to contact the GI Service. Thank you for allowing us to participate in the care of Jenna Fonglou. Gastroenterology 6 am to 4 pm weekdays in house: [phone] 4 pm to 6 am or weekends: Please contact the paradi operator to page the fellow applications support lead MAGNESIUM Collected: 07/02/2024 5:53 AM Status: UN K Source: [facility] TYPE CODE TESTS RESULT OUT OF RANGE REFERENCE UNITS LAB [id number] MAGNESIUM (MG/DL) IN SER/PLAS 1.7 Low 1.9-2.7 mg/dL Performed By: #### [id number] ## ## [facility] ([facility]) [address] [place] [address] LIPASE Collected: 07/02/2024 5:53 AM Status: UN K Source: [facility] TYPE CODE TESTS RESULT OUT OF RANGE REFERENCE UNITS LAB [id number] LIPASE (U/L) IN SER/PLAS 56 11-82 U/L Performed By: #### [id number] ### # [facility] ([facility]) [address] [place] [address] HEMOGLOBIN AND HEMATOCRIT, BLOOD Collected: 07/02/2024 5:53 AM Status: UNK Source: [facility] TYPE CODE TESTS RESULT OUT OF RANGE REFERENCE UNITS LAB [id number] HEMOGLOBIN (G/DL) IN BLOOD 8.6 Low 12.0-15.0 g/dL LAB [id number] HEMATOCRIT (%) IN BLOOD BY AUTOMATED COUNT 26.3 Low 36.0-48.0 % Performed By: #### [id number] ## ## [facility] ([facility]) [address] [place] [address] COMPREHENSIVE METABOLIC PANEL Collected: 07/02/2024 5 :53 AM Status: UNK Source: [facility] TYPE CODE TESTS RESULT OUT OF RANGE REFERENCE UNITS LAB [id number] SODIUM (MMOL/L) IN SER/PLAS 138 136-145 mmol/L LAB [id number] POTASSIUM (MMOL/ L) IN SER/PLAS 3.6 3.5-5.1 mmol/L LAB [id number] CHLORIDE (MMOL/L ) IN SER/PLAS 111 High 98-107 mmol/L LAB [id number] CARBON DIOXIDE, TOTAL (MMOL/L) IN SER/PLAS 21 21-31 mmol/L LAB [id number] ANION GAP IN SER/PLAS 10 7-20 mmol/L LAB [id number] UREA NITROGEN (MG/DL) IN SER/PLAS 28 High 7-25 mg/dL LAB [id number] CREATININE (MG/D L) IN SER/PLAS 0.67 0.60-1.20 mg/dL LAB [id number] UREA NITROGEN/CREATININ E (MASS RATIO) IN SER/PLAS 41.8 NA LAB [id number] GLUCOSE (MG/DL) IN SER/PLAS 87 70-100 mg/dL LAB [id number] CALCIUM (MG/DL) IN SER/PLAS 7.3 Low 8.6-10.3 mg/dL LAB [id number] ASPARTATE AMINOTRANSFERASE (SGOT) (U/L) IN SER/PLAS 173 High 13-39 U/L LAB [id number] ALANINE AMINOTRANSFERASE (SGPT) (U/L) IN SER/PLAS 178 High 7-52 U/L LAB [id number] ALKALINE PHOSPHATASE (U/L) IN SER/PLAS 613 High 34-104 U/L LAB [id number] PROTEIN (G/DL) I N SER/PLAS 3.7 Low 6.0-8.3 g/dL LAB [id number] ALBUMIN (G/DL) I N SER/PLAS 2.2 Low 3.5-5.7 g/dL LAB [id number] BILIRUBIN TOTAL (MG/DL) IN SER/PLAS 10.5 High 0.3-1.0 mg/dL LAB [id number] GLOMERULAR FILTRATION RATE ML/MIN/1.73 SQ M.PREDICTED 87.8 >60.0 mL/min /1.73m *2 Result Comment: [facility]???s estimated glomerular filtration rate (eGFR) will [...] one group of individuals. Performed By: #### [id number] ### # [facility] ([facility]) [address] [place] [address] HEMOGLOBIN AND HEMATOCRIT, BLOOD Collected: 07/02/2024 3:56 AM Status: UNK Source: [facility] TYPE CODE TESTS RESULT OUT OF RANGE REFERENCE UNITS LAB [id number] HEMOGLOBIN (G/DL) IN BLOOD 9.1 Low 12.0-15.0 g/dL LAB [id number] HEMATOCRIT (%) IN BLOOD BY AUTOMATED COUNT 27.8 Low 36.0-48.0 % Performed By: #### [id number] ## ## [facility] ([facility]) [address] [place] [address] PROGRESS Observed: 07/02/2024 1:30 AM Status: COMPLETED Source: [facility] As above serial LFTs Hyponatremia IV hydration recheck chemistry in the morning Leukocytosis suspect hemoconcentration recheck in the morning Mild metabolic acidosis as above hypovolemia lactate was normal recheck electrolytes creatinine after IV hydration Elevated lipase/possible pancreatitis patient n.p.o. IV fluids recheck lipase in the morning PROGRESS Observed: 07/02/2024 1:29 AM Status: COMPLETED Source: [facility] N.p.o. hemoglobin hematocrit every 12 hours IV Protonix GI to see patient PROGRESS Observed: 07/02/2024 1:29 AM Status: COMPLETED Source: [facility] Workup by gastroenterology s tatus post cholangiogram status post biliary sphincterotomy brushing for cytology performed biopsy done stents placed workup revealing common hepatic duct mass also poorly demarcated left hepatic lobe lesion the left hepatic lobe lesion measures 15.4 mm x 14.5 mm and status post fine-needle aspiration followed GI check AFP PROGRESS Observed: 07/02/2024 1:29 AM Status: COMPLETED Source: [facility] Since on beta-cornell and hi story of arrhythmia IV metoprolol since n.p.o. keep potassium around 4 magnesium around 2 PROGRESS Observed: 07/02/2024 1:29 AM Status: COMPLETED Source: [facility] Monitor and replace electrol ytes will recheck BMP and follow PROGRESS Observed: 07/02/2024 1:29 AM Status: COMP LETED Source: [facility] As above HP Observed: 07/02/2024 1:17 AM Status: COMPLETED Source: [facility] Hospital Medicine History and Physical 07/02/2024 1:17 AM THE HOSPITALIST TEAM PREFERS TO USE [employer] FOR NON-URGENT COMMUNICATION 7AM-7PM. IF I DO NOT RESPOND WITHIN 20 MINUTES OR URGENT MATTERS, PLEASE CALL THROUGH THE SCREEN STRETCHER. FROM 7PM-7AM, PLEASE PAGE [phone](COVR). Chief Complaint Chief Complaint Patient presents with Black or Bloody Stool Weakness, Gen Fall History of Present Illness Jenna Kumar is an 79 y.o. female transferred from [place] [facility] to [facility] ER when she presented to [place] [facility] for recurrent GI bleed increased fatigue weakness and found to have hemoglobin around 7 and blood pressure was low patient was admitted at [facility] on 06/28/2024 with diagnosis of jaundice pruritus [...] some dyspeptic symptoms pruritus feeling weak fatigue tired Chest pain palpitation PND orthopnea nausea vomiting, vague epigastric discomfort nonradiating unrelated to meals, she has been feeling tired and had slept all day day back today she does get up but was told we cannot stand on for on her face with impact to left cheek, denies syncope or feeling like passing out. Workup in the ER showed sodium 135 potassium 3.3 chloride 108 CO2 19 BUN 30 creatinine 0.66 troponin were negative lipase 95 bilirubin 10.7 alkaline phosphatase 682 ALT 202 INR 1.29 WBC 22.21 hemoglobin 8.1 hematocrit 24.2 Review of System and Physical Exam Temp: [36.3 ???C (97.4 ???F)-36.6 ???C (97.9 ???F)] 36.3 ???C (97.4 ???F) Heart Rate: [83-91] 87 Resp: [18-23] 18 BP: (100-119)/(49-77) 116/77 Physical Exam Vitals reviewed. Constitutional: Appearance: Normal appearance. HENT: Head: Normocephalic and atraumatic. Right Ear: Tympanic membrane, ear canal and external ear normal. Left Ear: Tympanic membrane, ear canal and external ear normal. Nose: Nose normal. Mouth/Throat: Mouth: Mucous membranes are moist. Pharynx: Oropharynx is clear. Eyes: General: Scleral icterus present. Extraocular Movements: Extraocular movements intact. Conjunctiva/sclera: Conjunctivae normal. Pupils: Pupils are equal, round, and reactive to light. Cardiovascular: Rate and Rhythm: Normal rate and regular rhythm. Pulses: Normal pulses. Heart sounds: Normal heart sounds. Pulmonary: Effort: Pulmonary effort is normal. Breath sounds: Normal breath sounds. Abdominal: General: Abdomen is flat. Bowel sounds are normal. Palpations: Abdomen is soft. Musculoskeletal: General: Normal range of motion. Cervical back: Normal range of motion and neck supple. Skin: General: Skin is warm and dry. Capillary Refill: Capillary refill takes less than 2 seconds. Neurological: General: No focal deficit present. Mental Status: She is alert. Mental status is at baseline. Psychiatric: Behavior: Behavior normal. Review of Systems Constitutional: Positive for activity change and fatigue. HENT: Negative. Respiratory: Negative. Cardiovascular: Negative. Gastrointestinal: Positive for blood in stool. Melanotic stool Endocrine: Negative. Genitourinary: Negative. Musculoskeletal: Negative. Skin: Negative. Jaundice Allergic/Immunologic: Negative. Neurological: Positive for weakness. Negative for dizziness, tremors, seizures, syncope, facial asymmetry, speech difficulty, light-headedness, numbness and headaches. Hematological: Negative. Psychiatric/Behavioral: Negative. Assessment and Plan Assessment & Plan GI bleed N.p.o. hemoglobin hematocrit every 12 hours IV Protonix GI to see patient Posthemorrhagic anemia As above Primary hypertension Since on beta-cornell and history of arrhythmia IV metoprolol since n.p.o. keep potassium around 4 magnesium around 2 Hypokalemia Monitor and replace electrolytes will recheck BMP and follow Liver mass Workup by gastroenterology status post cholangiogram status post biliary sphincterotomy brushing for cytology performed biopsy done stents placed workup revealing common hepatic duct mass also poorly demarcated left hepatic lobe lesion the left hepatic lobe lesion measures 15.4 mm x 14.5 mm and status post fine-needle aspiration followed GI check AFP Obstructive jaundice As above serial LFTs Hyponatremia IV hydration recheck chemistry in the morning Leukocytosis suspect hemoconcentration recheck in the morning Mild metabolic acidosis as above hypovolemia lactate was normal recheck electrolytes creatinine after IV hydration Elevated lipase/possible pancreatitis patient n.p.o. IV fluids recheck lipase in the morning CODE STATUS full code VTE Prophylaxis: High risk for GI bleed ----- Focus of this inpatient stay will remain on problems that need acute care setting for care. We will review available studies and will order additional labs, imaging and other studies as appropriate. As needed medicines are ordered as appropriate. VTE Prophylaxis will be ordered as appropriate. Please see above for management plan for individual hospital problems. Home medications are reviewed and will be continued as appropriate. Patient will be continued to be followed during this hospital stay by a member of [facility]. Past Medical History Past Medical History: Diagnosis Date Anxiety Bundle branch block Heart disease Hypertension Past Surgical History History reviewed. No pertinent surgical history. Social History Social History Socioeconomic History Marital status: Spouse name: Not on file Number of children: Not on file Years of education: Not on file Highest education level: Not on file Occupational History Not on file Tobacco Use Smoking status: Never Smokeless tobacco: Never Substance and Sexual Activity Alcohol use: Yes Alcohol/week: 2.0 standard drinks of alcohol Types: 2 Glasses of wine per week Drug use: Not on file Sexual activity: Not on file Other Topics Concern Not on file Social History Narrative Not on file Social Determinants of Health Financial Resource Strain: Not on file Food Insecurity: Not on file Transportation Needs: Not on file Physical Activity: Not on file Stress: Not on file Social Connections: Not on file Intimate Partner Violence: Not on file Housing Stability: Not on file Family History family history is not on file. Allergies is allergic to penicillin and sulfadiazine. Prior to Admission Medications (Not in a hospital admission) Labs Labs Reviewed BASIC METABOLIC PANEL - Abnormal Result Value Sodium 135 (*) Potassium 3.3 (*) Chloride 108 (*) CO2 19 (*) BUN 30 (*) Creatinine 0.66 Glucose 84 Calcium 7.4 (*) Anion Gap 11 eGFR 88.1 BUN/Creatinine Ratio 45.5 LIPASE - Abnormal Lipase 95 (*) HEPATIC FUNCTION PANEL - Abnormal Total Bilirubin 10.7 (*) Bilirubin, Direct 6.1 (*) Alkaline Phosphatase 682 (*) AST 192 (*) ALT (SGPT) 202 (*) Total Protein 4.2 (*) Albumin 2.4 (*) PROTIME-INR - Abnormal Protime 16.0 (*) INR 1.29 (*) CBC WITH AUTO DIFFERENTIAL - Abnormal Auto WBC 22.21 (*) RBC 2.72 (*) Hemoglobin 8.1 (*) Hematocrit 24.2 (*) MCV 89.0 MCH 29.8 MCHC 33.5 RDW 17.7 (*) Platelets 259 nRBC % 0.0 MANUAL DIFFERENTIAL - Abnormal Atypical Lymphocytes % 0.0 Neutrophils Absolute 17.2 (*) Lymphocytes Absolute 4.26 (*) Monocytes Absolute 0.58 Eosinophils Absolute 0.00 Basophils Absolute 0.16 Atypical Lymphs Absolute 0.00 Giant PLTs Present Neutrophils Relative 77.5 (*) Lymphocytes Relative 19.2 (*) Monocytes Relative 2.6 (*) Eosinophils Relative 0.0 Basophils Relative 0.7 Plasma Cells % 0 TROPONIN I - Normal Troponin I 0.04 LACTIC ACID WITH 4 HOUR REFLEX - Normal Lactate 0.8 APTT - Normal aPTT 27.5 CBC AND DIFFERENTIAL Narrative: The following orders were created for panel order CBC and differential. Procedure Abnormality Status --------- ------ CBC auto differential[[id number]] Abnormal Final result Manual Differential[[id number]] Abnormal Final result Please view results for these tests on the individual orders. TYPE AND SCREEN ABO Grouping O Rh Type POS Ab Scrn NEG URINALYSIS WITH REFLEX CULTURE PREPARE RBC PRODUCT CODE [id number] Unit Number [id number] Unit ABO O Unit Rh POS Crossmatch Interpretation COMP Dispense Status TR Blood Expiration Date [id number] Product Blood Type 5100 Unit Volume 300 Imaging ECG 12 lead Sinus rhythm with Premature supraventricular complexes Left bundle branch block Abnormal ECG No previous ECGs available Confirmed by Marcelino Ledbetter ([id number]) on 07/02/2024 12:56:22 AM Signed Srinivas London MD [facility] Medicine 07/02/2024 1:17 AM URINALYSIS MICROSCOPIC WITH REFLEX CULTURE Collected: 07/02/2024 12:37 AM Status: UNK Source: [facility] TYPE CODE TESTS RESULT OUT OF RANGE REFERENCE UNITS LAB [id number] RBC (#/HPF) IN URINE SEDIMENT 0-2 None Seen, 0-2 /HPF LAB 1533390 WBC (LEUKOCYTE) (#/HPF) IN URINE SEDIMENT 6-10 Abnormal None Seen, 0-2 /HPF LAB [id number] SQUAMOUS EPITHELIAL CELLS (#/LPF) IN URINE SEDIMENT Moderate Abnormal None Seen, Occasional, Few /LPF Performed By: #### [id number] # ### [facility] [address] [place] [address] URINALYSIS WITH REFLEX CULTURE Collected: 07/02/2024 12:37 AM Status: UNK Source: [facility] TYPE CODE TESTS RESULT OUT OF RANGE REFERENCE UNITS LAB [id number] COLOR OF URINE Dark-Yellow Abnormal Col orless, Yellow, Light-Yellow LAB 1065581 CLARITY OF URINE Clear Clear LAB 2222269 PH OF URINE 5.5 5.0-8.0 pH LAB 8462433 LEUKOCYTE ESTERASE PRESENCE IN URINE BY TEST STRIP Negative Negative LAB 5432398 NITRITE PRESENCE IN URINE Negative Negative LAB 2941841 PROTEIN (MG/DL) IN URINE BY TEST STRIP Negative Negative mg/dL LAB 7289226 GLUCOSE (MG/DL) IN URINE Normal Normal mg/dL LAB 9767204 BILIRUBIN, TOTAL PRESENCE IN URINE Small Abnormal Negative LAB 9 SPECIFIC GRAVITY OF URINE 1.039 High 1.010-1.030 NA LAB 548 KETONES (MG/DL) IN URINE Negative Negative mg/dL LAB 549 HEMOGLOBIN PRESENCE IN URINE Moderate Abnormal Negative LAB 5103400 UROBILINOGEN (MG/DL) IN URINE 2.0 Abnormal Normal mg/dL Performed By: #### [id number] # ### [facility] [address] [place] [address] EDPROV Observed: 07/01/2024 11:01 PM Status: COMPLETED Source: [facility] [address] [facility] [id number] EMERGENCY DEPARTMENT ENCOUNTER 07/01/2024 CHIEF COMPLAINT Chief Complaint Patient presents with Black or Bloody Stool Weakness, Gen Fall HISTORY OF PRESENT ILLNESS 79 y/o female with a h/o HTN presents to the ED as a transfer from [facility] for GI bleed. Pt reports she had EUS with liver biopsy, ERCP with stent placement, and flexi sig on 06/28/[address] Díaz for h/o hepatic and rectal masses. Pt reports pathology are still pending. Pt reports she has since been feeling fatigued and generally weak. Pt endorses melena that began today. Pt denies anticoagulation. Pt reports she fell d/t gen weakness this morning and struck her left cheek. Pt denies ELDER, LOC, syncope, CP, SOB, abd pain, n/v/d, neck/back pain. Pt found to have hgb in the 7s and low BP at OSH for which she was transfused 1U PRBC and tx here for GI to evaluate. Pt reports jaundice is unchanged. REVIEW OF SYSTEMS Review of Systems Constitutional: Positive for fatigue. Negative for chills and fever. Eyes: Negative for visual disturbance. Respiratory: Negative for shortness of breath. Cardiovascular: Negative for chest pain. Gastrointestinal: Positive for blood in stool. Negative for abdominal pain, diarrhea and vomiting. Musculoskeletal: Negative for back pain and neck pain. Skin: Positive for color change. Neurological: Positive for weakness. Negative for dizziness, syncope and headaches. Psychiatric/Behavioral: Negative for confusion. All other systems reviewed and are negative. PAST MEDICAL HISTORY has a past medical history of Anxiety, Bundle branch block, Heart disease, and Hypertension. SURGICAL HISTORY has no past surgical history on file. CURRENT MEDICATIONS Previous Medications ASPIRIN 81 MG EC TABLET Take 81 mg by mouth in the morning. DIAZEPAM (VALIUM) 2 MG TABLET Take 2 mg by mouth every 12 (twelve) hours if needed for anxiety. LOSARTAN (COZAAR) 25 MG TABLET Take 25 mg by mouth in the morning. METOPROLOL SUCCINATE XL (TOPROL-XL) 25 MG 24 HR TABLET Take 12.5 mg by mouth Twice daily at 6am and 6pm. Do not crush or chew. ALLERGIES is allergic to penicillin and sulfadiazine. FAMILY HISTORY has no family status information on file. family history is not on file. SOCIAL HISTORY reports that she has never smoked. She has never used smokeless tobacco. She reports current alcohol use of about 2.0 standard drinks of alcohol per week. PHYSICIAL EXAM INITIAL VITALS: height is 1.626 m (5' 4 ) and weight is 65.8 kg (145 lb). Her oral temperature is 36.6 ???C (97.9 ???F). Her blood pressure is 100/49 (abnormal) and her pulse is 85. Her respiration is 18 and oxygen saturation is 95%. Physical Exam Vitals reviewed. Constitutional: General: She is not in acute distress. Appearance: Normal appearance. She is ill-appearing. She is not toxic-appearing. HENT: Head: Normocephalic and atraumatic. Mouth/Throat: Mouth: Mucous membranes are moist. Eyes: General: Scleral icterus present. Conjunctiva/sclera: Conjunctivae normal. Cardiovascular: Rate and Rhythm: Normal rate and regular rhythm. Heart sounds: Normal heart sounds. Pulmonary: Effort: Pulmonary effort is normal. No respiratory distress. Breath sounds: Normal breath sounds. Abdominal: General: Bowel sounds are normal. Palpations: Abdomen is soft. Tenderness: There is no abdominal tenderness. Musculoskeletal: General: No tenderness. Normal range of motion. Cervical back: Normal range of motion and neck supple. No tenderness. Skin: General: Skin is warm and dry. Coloration: Skin is jaundiced. Neurological: General: No focal deficit present. Mental Status: She is alert and oriented to person, place, and time. Psychiatric: Mood and Affect: Mood normal. Behavior: Behavior normal. DIAGNOSTIC RESULTS EKG: All EKG's are interpreted by the Emergency Department Physician who either signs or co-signs this chart in the absence of a telesales manager. EKG was reviewed by ED attending and administrative underwriter. EKG interpretation for this visit is documented below. ECG 12 lead Performed by: Rama Joseph PA-C Authorized by: Rama Joseph PA-C ECG interpreted by ED Physician in the absence of a telesales manager: yes (EKG reviewed by ED attending (Dr Ayala) at 2210) Rate: ECG rate: 87 bpm Rhythm: Rhythm: sinus rhythm Ectopy: Ectopy: PVCs QRS: QRS axis: Normal QRS intervals: Normal QRS conduction: LBBB Details: QTc 481ms ST segments: ST segments: Normal T waves: T waves: normal RADIOLOGY: Not indicated LABS: Labs Reviewed BASIC METABOLIC PANEL - Abnormal Result Value Sodium 135 (*) Potassium 3.3 (*) Chloride 108 (*) CO2 19 (*) BUN 30 (*) Creatinine 0.66 Glucose 84 Calcium 7.4 (*) Anion Gap 11 eGFR 88.1 BUN/Creatinine Ratio 45.5 LIPASE - Abnormal Lipase 95 (*) HEPATIC FUNCTION PANEL - Abnormal Total Bilirubin 10.7 (*) Bilirubin, Direct 6.1 (*) Alkaline Phosphatase 682 (*) AST 192 (*) ALT (SGPT) 202 (*) Total Protein 4.2 (*) Albumin 2.4 (*) PROTIME-INR - Abnormal Protime 16.0 (*) INR 1.29 (*) CBC WITH AUTO DIFFERENTIAL - Abnormal Auto WBC 22.21 (*) RBC 2.72 (*) Hemoglobin 8.1 (*) Hematocrit 24.2 (*) MCV 89.0 MCH 29.8 MCHC 33.5 RDW 17.7 (*) Platelets 259 nRBC % 0.0 MANUAL DIFFERENTIAL - Abnormal Atypical Lymphocytes % 0.0 Neutrophils Absolute 17.2 (*) Lymphocytes Absolute 4.26 (*) Monocytes Absolute 0.58 Eosinophils Absolute 0.00 Basophils Absolute 0.16 Atypical Lymphs Absolute 0.00 Giant PLTs Present Neutrophils Relative 77.5 (*) Lymphocytes Relative 19.2 (*) Monocytes Relative 2.6 (*) Eosinophils Relative 0.0 Basophils Relative 0.7 Plasma Cells % 0 TROPONIN I - Normal Troponin I 0.04 LACTIC ACID WITH 4 HOUR REFLEX - Normal Lactate 0.8 APTT - Normal aPTT 27.5 CBC AND DIFFERENTIAL Narrative: The following orders were created for panel order CBC and differential. Procedure Abnormality Status --------- ------ CBC auto differential[[id number]] Abnormal Final result Manual Differential[[id number]] Abnormal Final result Please view results for these tests on the individual orders. TYPE AND SCREEN ABO Grouping O Rh Type POS Ab Scrn NEG URINALYSIS WITH REFLEX CULTURE PREPARE RBC PRODUCT CODE [id number] Unit Number [id number] Unit ABO O Unit Rh POS Crossmatch Interpretation COMP Dispense Status XM Blood Expiration Date [id number] Product Blood Type 5100 Unit Volume 300 EMERGENCY DEPARMENT COURSE Vitals: Vitals: 07/01/24212107/01/24213007/01/242230 BP: 119/50 110/68 (!) 100/49 Pulse: 89 91 85 Resp: 18 18 Temp: 36.6 ???C (97.9 ???F) TempSrc: Oral SpO2: 95% 97% 95% Weight: 65.8 kg (145 lb) Height: 1.626 m (5' 4 ) BP: (!) 100/49, Temp: 36.6 ???C (97.9 ???F), Temp Source: Oral, Heart Rate: 85, Resp: 18 ED Course as of 07/08/242340Jul 01, 20242128 Reviewed records sent with patient from [facility]. Patient was in their ER earlier today after a fall. patient was given metoprolol, a 1 unit packed red blood cells, Zofran, Protonix at outside hospital. WBC 25, hemoglobin 7.9, platelet 299, potassium 3.2, magnesium 1.6, total bilirubin 10.9, direct bilirubin 9.2, AST 204, ALT 269, alkaline phosphatase 821, lipase 1459. urine negative for UTI. FOBT positive. CTH neg acute. CTAP with interval placement of internal biliary stents which extend into the left hepatic lobe with associated decompression of the previously dilated intrahepatic bile ducts within the left hepatic lobe, persistently dilated intrahepatic bile ducts within the right hepatic lobe; ill-defined heterogenous mass within hepatic segment 4A and 4B measuring 5.2 x 4.8 cm again noted; heterogenous enhancing rectal mass again identified not well assessed on this examination; stable bilateral renal cysts. EKG with sinus rhythm, LBBB [JS] 213 Discussed with GI who rec'd PPI infusion, NPO now, scope in AM. Admit to hospitalist. [JS] 2213 Hemoglobin(!): 8.1 Compare to 7.9 at OSH; type and screen sent; pt with stable vitals and no signs of actively large GI bleeding on exam at this time. [JS] 2300 Hospitalist informed of consultation for admission. [JS] 2310 Hospitalist is agreeable to admission and will evaluate the pt. Wants pt to get 1U PRBC [JS] 2317 Pt with small amt liquid melena since being here. No clots. Pt consented for blood. Vitals stable. Hospitalist updated. 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 Pt also with tbili 12.9, alk phos 1074, ALT 499, AST 273. Pt with EUS with ERCP and flexi sig and possible stent placement 06/28/24 for jaundice and pruritus. Biopsies from CBD and hepatic duct brushing are still pending from that date. [JS] ED Course User Index [JS] Rama Joseph PA-C Diagnoses as of 07/08/24 2341 Fall, initial encounter Jaundice Hyperbilirubinemia Gastrointestinal hemorrhage, unspecified gastrointestinal hemorrhage type Abnormal LFTs Acute pancreatitis, unspecified complication status, unspecified pancreatitis type GI bleed CONSULTS: hospitalist, GI, and MICU PROCEDURES: nne DIFFERENTIAL DIAGNOSIS / DISPOSITION / PLAN / Medical Decision Making Problems Addressed: Abnormal LFTs: acute illness or injury Acute pancreatitis, unspecified complication status, unspecified pancreatitis type: acute illness or injury Fall, initial encounter: acute illness or injury Gastrointestinal hemorrhage, unspecified gastrointestinal hemorrhage type: acute illness or injury Hyperbilirubinemia: acute illness or injury Jaundice: acute illness or injury Amount and/or Complexity of Data Reviewed External Data Reviewed: labs, radiology and notes. Discussion of management or test interpretation with external provider(s): Consultation with hospitalist, GI, and MICU Risk Decision regarding hospitalization. FINAL IMPRESSION 1. GI bleed 2. Fall, initial encounter 3. Jaundice 4. Hyperbilirubinemia 5. Gastrointestinal hemorrhage, unspecified gastrointestinal hemorrhage type 6. Abnormal LFTs 7. Acute pancreatitis, unspecified complication status, unspecified pancreatitis type I have reviewed the disposition diagnosis with the patient and/or their family/guardian. I have answered their questions and given instructions. They voiced understanding of these instructions and did not have any further questions or complaints. (Please note that portions of this note were completed with a voice recognition program. Efforts were made to edit the dictions but occasionally words are mis-transcribed.) ILA Dougherty PA-C 07/08/24 2343 TYPE AND SCREEN Collected: 07/01/2024 9:59 PM Status : UNK Source: [facility] TYPE CODE TESTS RESULT OUT OF RANGE REFERENCE UNITS LAB [id number] ABO GROUP (TYPE) IN BLOOD O LAB [id number] RH TYPE IN BLOOD POS LAB [id number] AB SCREEN NEG Performed By: #### [id number] ## ## [facility] BLOOD BANK , MANUAL DIFFERENTIAL Collected: 07/01/2024 9:[address] atus: UNK Source: [facility] TYPE CODE TESTS RESULT OUT OF RANGE REFERENCE UNITS LAB 109 VARIANT LYMPHOCYTES/100 LEUKOCYTES IN BLOOD CELLAVISION 0.0 0.0-0.0 % LAB [id number] NEUTROPHILS (10*3/UL) IN BLOOD BY CALCULATION 17.2 High 1.6-7.6 10*3/uL LAB 9375397 LYMPHOCYTES (10*3/UL) IN BLOOD BY CALCULATION 4.26 High 1.20-4.00 10*3/uL LAB 7107855 MONOCYTES (10*3/UL) IN BLOOD BY CALCUATION 0.58 0.10-1.00 10*3/uL LAB 3891208 EOSINOPHILS (10*3/UL) IN BLOOD BY CALCULATION 0.00 0.00-0.50 10*3/uL LAB 1420379 BASOPHILS (10*3/UL) IN BLOOD BY CALCULATION 0.16 0.00-0.20 10*3/uL LAB 114 VARIANT LYMPHOCYTES (10*3/UL) IN BLOOD BY CALCULATION 0.00 0.00 10*3/uL LAB 6356829 PLATELETS GIANT PRESENCE IN BLOOD BY LIGHT MICROSCOPY Present LAB 6742746 NEUTROPHILS/100 LEUKOCYTES IN BLOOD BY AUTOMATED COUNT 77.5 High 40.0-72.0 % LAB 0172258 LYMPHOCYTES/100 LEUKOCYTES IN BLOOD BY AUTOMATED COUNT 19.2 Low 20.0-45.0 % LAB 5357805 MONOCYTES/100 LEUKOCYTES IN BLOOD BY AUTOMATED COUNT 2.6 Low 5.0-12.0 % LAB 6875190 EOSINOPHILS/100 LEUKOCYTES IN BLOOD BY AUTOMATED COUNT 0.0 0.0-6.0 % LAB 2026350 BASOPHILS/100 LEUKOCYTES IN BLOOD BY AUTOMATED COUNT 0.7 0.0-1.0 % LAB 2633 PLASMA CELLS/100 LEUKOCYTES IN BLOOD 0 0 % Performed By: #### [id number] # ### [facility] ([facility]) [address] [place] [address] LACTIC ACID WITH 4 HOUR REFLEX Collecte d: 07/01/2024 9:59 PM Status: UNK Source: [facility] TYPE CODE TESTS RESULT OUT OF RANGE REFERENCE UNITS LAB 2144596 LACTATE (MMOL/L) IN SER/PLAS 0.8 0.5-2.2 mmol/L Performed By: #### [id number] #### [facility] ([facility]) [address] [place] [address] TROPONIN I Collected: 07/01/2024 9:59 PM Status: UN K Source: [facility] TYPE CODE TESTS RESULT OUT OF RANGE REFERENCE UNITS LAB 5679495 TROPONIN I.CARDIAC (NG/ML) IN SERUM OR PLASMA 0.04 0.00-0.04 ng/mL Performed By: #### [id number] ## ## [facility] ([facility]) [address] [place] [address] LIPASE Collected: 07/01/2024 9:59 PM Status: UN K Source: [facility] TYPE CODE TESTS RESULT OUT OF RANGE REFERENCE UNITS LAB 5280377 LIPASE (U/L) IN SER/PLAS 95 High 11-82 U/L Performed By: #### [id number] ### # [facility] ([facility]) [address] [place] [address] APTT Collected: 07/01/2024 9:59 PM Status: UN K Source: [facility] TYPE CODE TESTS RESULT OUT OF RANGE REFERENCE UNITS LAB 3573952 ACTIVATED PARTIA L THROMBOPLASTIN TIME IN PPP BY COAGULATION ASSAY 27.5 25.0-35.0 Seconds Result Comment: Clinical sig nificance of the APTT is questionable in the presence of heparin. Performed By: #### [id number] ## ## [facility] ([facility]) [address] [place] [address] CBC WITH AUTO DIFFERENTIAL Collected: 07/01/2024 9:59 PM Status: UNK Source: [facility] TYPE CODE TESTS RESULT OUT OF RANGE REFERENCE UNITS LAB 9385367 LEUKOCYTES(10*3/ UL) IN BLOOD BY AUTOMATED COUNT 22.21 High 4.00-10.60 10*3/uL LAB 8876536 ERYTHROCYTES (10*6/UL) IN BLOOD BY AUTOMATED COUNT 2.72 Low 3.80-5.00 10*6/uL LAB 5076779 HEMOGLOBIN (G/DL) IN BLOOD 8.1 Low 12.0-15.0 g/dL LAB 2930338 HEMATOCRIT (%) IN BLOOD BY AUTOMATED COUNT 24.2 Low 36.0-48.0 % LAB 6492247 ERYTHROCYTE MEAN CORPUSCULAR VOLUME (FL) BY AUTOMATED COUNT 89.0 82.0-98.0 fL LAB 2699954 ERYTHROCYTE MEAN CORPUSCULAR HEMOGLOBIN (PG) BY AUTOMATED COUNT 29.8 27.0-33.0 pg LAB 2000404 ERYTHROCYTE MEAN CORPUSCULAR HEMOGLOBIN CONCENTRATION (G/DL) BY AUTOMATED 33.5 32.0-35.0 g/dL LAB 4430611 ERYTHROCYTE DISTRIBUTION WIDTH (RATIO) BY AUTOMATED COUNT 17.7 High 11.5-15.0 % LAB 4027777 PLATELETS (10*3/UL) IN BLOOD AUTOMATED COUNT 259 150-400 10*3/uL LAB 254 NRBC (PER 100 WBCS) BY AUTOMATED COUNT 0.0 0 % Performed By: #### [id number] # ### [facility] [address] [place] [address] HEPATIC FUNCTION PANEL Collected: 07/01/2024 9:59 PM Status: UNK Source: [facility] TYPE CODE TESTS RESULT OUT OF RANGE REFERENCE UNITS LAB 5228949 BILIRUBIN TOTAL (MG/DL) IN SER/PLAS 10.7 High 0.3-1.0 mg/dL LAB 4651336 BILIRUBIN DIRECT (MG/DL) IN SER/PLAS 6.1 High 0-0.2 mg/dL LAB 6615073 ALKALINE PHOSPHA TASE (U/L) IN SER/PLAS 682 High 34-104 U/L LAB 3397470 ASPARTATE AMINOTRANSFERASE (SGOT) (U/L) IN SER/PLAS 192 High 13-39 U/L LAB 4584711 ALANINE AMINOTRANSFERASE (SGPT) (U/L) IN SER/PLAS 202 High 7-52 U/L LAB 6702019 PROTEIN (G/DL) I N SER/PLAS 4.2 Low 6.0-8.3 g/dL LAB 2900500 ALBUMIN (G/DL) I N SER/PLAS 2.4 Low 3.5-5.7 g/dL Performed By: #### [id number] ### # [facility] [address] [place] [address] BASIC METABOLIC PANEL Collected: 2024 9:59 PM Status: UNK Source: [facility] TYPE CODE TESTS RESULT OUT OF RANGE REFERENCE UNITS LAB 0749419 SODIUM (MMOL/L) IN SER/PLAS 135 Low 136-145 mmol/L LAB 0267837 POTASSIUM (MMOL/L) IN SER/PLAS 3.3 Low 3.5-5.1 mmol/L LAB 4633538 CHLORIDE (MMOL/L) IN SER/PLAS 108 High 98-107 mmol/L LAB 1275518 CARBON DIOXIDE, TOTAL (MMOL/L) IN SER/PLAS 19 Low 21-31 mmol/L LAB 3886074 UREA NITROGEN (MG/DL) IN SER/PLAS 30 High 7-25 mg/dL LAB 2837365 CREATININE (MG/DL) IN SER/PLAS 0.66 0.60-1.20 mg/dL LAB 5535695 GLUCOSE (MG/DL) IN SER/PLAS 84 70-100 mg/dL LAB 9175296 CALCIUM (MG/DL) IN SER/PLAS 7.4 Low 8.6-10.3 mg/dL LAB 5298305 ANION GAP IN SER/PLAS 11 7-20 mmol/L LAB 5920682 GLOMERULAR FILTRATION RATE ML/MIN/1.73 SQ M.PREDICTED 88.1 >60.0 mL/min/ 1.73m*2 Result Comment: [facility]???s estimated glomerular filtration rate (eGFR) will [...] disproportionately affect any one group of individuals. LAB 3249124 UREA NITROGEN/CREA TININE (MASS RATIO) IN SER/PLAS 45.5 NA Performed By: #### [id number] ### # [facility] [address] [place] [address] PROTIME-INR Collected: 07/01/2024 9:59 PM Status: UN K Source: [facility] TYPE CODE TESTS RESULT OUT OF RANGE REFERENCE UNITS LAB 5995271 PROTHROMBIN TIME (PT) IN PPP BY COAGULATION ASSAY 16.0 High 12.3-14.8 Seconds LAB 1861238 INR IN PPP BY COAGULATION ASSAY 1.29 High 0.90-1.10 NA Result Comment: [facility] RECOMM ENDED INR FOR [facility] THERAPY CONDITION INR PROPHYLAXIS OF VENOUS THROMBOSIS 2-3 (HIGH-RISK SURGERY) TREATMENT OF VENOUS THROMBOSIS 2-3 TREATMENT OF PULMONARY EMBOLISM 2-3 PREVENTION OF SYSTEMIC EMBOLISM: 2-3 ACUTE MYOCARDIAL INFARCTION TISSUE HEART VALVES VALVULAR HEART DISEASE ATRIAL FIBRILLATION RECURRENT SYSTEMIC EMBOLISM MECHANICAL HEART VALVE 2.5-3.5 FROM: ORAL ANTICOAGULANTS. MECHANISM OF ACTION, CLINICAL EFFECTIVENESS, AND OPTIMAL THERAPEUTIC RANGE. CHEST 1995;108:231S-246S. Performed By: #### [id number] ## ## [facility] [address] [place] [address] EDNURS Observed: 07/01/2024 9:19 PM Status: COMPLETED Source: [facility] Patient arrives by EMS from [facility] for bloody stools, weakness, and a fall this morning. Pt recently had a liver stent placed on Monday, and [facility]'s ER thinks it may have caused a GI bleed. Pt's hgb was 7.9 and was given 1 unit of RBCs at [facility]. Pt endorses hitting her cheek when she fell, but the head CT was negative. URINE CULTURE Observed: 07/01/2024 1:54 PM Status: F Source: [facility] <9,000 colonies/ml mixed bacterial skin contaminants 2 Days PERFORMED BY: [facility] [address] [place] [address] PATHOLOGIST ASH KIER BOILER FRANSICO JACKSON M.D. Performed By: #### CUU #### [facility] [address] NURSNOTE Observed: 06/28/2024 6:55 PM Status: COMPLETED Source: [facility] RN reviewed discharge instru ctions with patient and son. No questions or concerns expressed at this time. ANES Observed: 06/28/2024 5:45 PM Status: COMPLETED Source: [facility] Patient: Jenna Kumar Procedure Summary Date: 06/28/24 Room / Location: [facility] Endoscopy Anesthesia Start: 1442 Anesthesia Stop: 1738 Procedures: EUS (UPPER) W/ EGD ENDOSCOPIC RETROGRADE CHOLANGIOPANCREATOGRAPHY FLEXIBLE SIGMOIDOSCOPY Diagnosis: Obstructive jaundice Liver lesion Rectal lesion Scheduled Providers: Avelina Cartagena MD; IVIS Reed; Bradley Díaz MD Responsible Provider: Reece Hernandez MD Anesthesia Type: general ASA Status: 3 Anesthesia Type: general Vitals Value Taken Time BP 119/65 06/28/24 1735 Temp 36.2 ???C (97.2 ???F) 06/28/24 1735 Pulse 67 06/28/24 1735 Resp 20 06/28/24 1735 SpO2 94 % 06/28/24 1735 Anesthesia Post Evaluation Patient location during evaluation: PACU Patient participation: complete - patient participated Level of consciousness: awake Pain score: 1 Pain management: adequate Airway patency: patent Cardiovascular status: acceptable Respiratory status: acceptable Patient is hemodynamically stable and is able to be discharged from PACU per anesthesia protocol. No notable events documented. NURSNOTE Observed: 06/28/2024 5:32 PM Status: COMPLETED Source: [facility] All positioning devices jay patrick grounding patch site clean dry intact, pt returned to stretcher per 4 assists. pt remains supine. [id number] Observed: 06/28/2024 5:32 PM Status: COMPLETED Source: [facility] Patient: Jenna Kumar Procedure Summary Date: 06/28/24 Room / Location: [facility] Endoscopy Anesthesia Start: 1442 Anesthesia Stop: Procedures: EUS (UPPER) W/ EGD ENDOSCOPIC RETROGRADE CHOLANGIOPANCREATOGRAPHY FLEXIBLE SIGMOIDOSCOPY Diagnosis: Obstructive jaundice Liver lesion Rectal lesion Scheduled Providers: Avelina Cartagena MD; IVIS Reed; Bradley Díaz MD Responsible Provider: Reece Hernandez MD Anesthesia Type: general ASA Status: 3 Anesthesia Post Transport Note Transport to: [facility] PACU O2 Route: room air Patient Monitor: direct observation Transport: uneventful Patient condition is: stable NURSNOTE Observed: 06/28/2024 5:20 PM Status: COMPLETED Source: [facility] Rectal mass biopsy sent with cytology. NURSNOTE Observed: 06/28/2024 5:04 PM Status: COMPLETED Source: [facility] Hepatic duct brushing and he patic duct biopsy sent with cytology at bedside. HISTOLOGY - TISSUE EXAM Collected: 06/15 3:58 PM Status: UNK Source: [facility] TYPE CODE TESTS RESULT OUT OF RANGE REFERENCE UNITS PATHOLOGY 1499 LAB AP CASE REPORT Result Comment: Surgical Pat hology Case: [id number] Authorizing Provider: Braldey Díaz MD Collected: 06/28/2024 1558 Ordering Location: [facility] Received: 07/01/2024 0813 [facility] Endoscopy Pathologist: Marcelino Mackay MD Specimens: A) - Common Bile Duct, COMMON HEPATIC DUCT BIOPSY RULE OUT MALIGNANCY, DYSPLASIA B) - Rectum, RECTAL MASS RULE OUT MALIGNANCY PATHOLOGY 34 LAB AP REPORT FINAL DIAGNOSIS NARRATIVE Result Comment: A. Common bi le duct, biopsy: -Adenocarcinoma. B. Rectal mass, biopsy: -Superficial fragments of tubulovillous adenoma. -No invasive neoplasm or high-grade dysplasia identified. -See comment. OLOGY 29 LAB AP CLINICAL INFORMATION Order Diagnoses Result Comment: K83.1 - Obst ructive jaundice [ICD-10-CM] K76.9 - Liver lesion [ICD-10-CM] K62.9 - Rectal lesion [ICD-10-CM] PATHOLOGY 35 LAB AP DIAGNOSIS COMMENT The specimen in part B may not be entirely financial service representative of a larger mass. Parts A and B were reviewed in intradepartmental consensus with agreement of the diagnosis. Also see concurrent concurrent cytopathology case [id number]. PATHOLOGY [id number] LAB AP GROSS DESCRIPTION Result Comment: A. Common Bi le Duct. Part A is received in formalin labeled Ellinor Covella and common hepatic duct biopsy rule out malignancy, dysplasia. It consists of 3 castillo-lovelace, delicate fragments of mucosal soft tissue ranging from 0.2 cm to 0.3 cm in greatest dimension admixed with scant hemorrhagic material. The scant hemorrhagic material may not survive processing. The specimen is submitted in toto in 1 cassette. Usha Mccoy, Pathologists' Nursing Student student Naomi Sands, Pathologists' Nursing Student studentB. Rectum. Part B is received in formalin labeled Ellinor Covella and rectal mass rule out malignancy. It consists of a 0.7 x 0.5 x 0.2 cm aggregate of multiple castillo-lovelace, delicate pieces of mucosal soft tissue. The specimen is submitted in toto in 1 cassette. Usha Mccoy, Pathologists' Nursing Student student Naomi Sands, Pathologists' Nursing Student student PATHOLOGY 32 LAB AP MICROSCOPIC DESCRIPTION Microscopic examination performed. Performed By: #### [id number] # ### [facility] (BEAKER) [address] [place] [address] NON-PRODUCTION BORING MACHINE OPERATOR CYTOLOGY - CELLULAR EXAM [facility] saleem: 06/28/2024 3:51 PM Status: UNK Source: [facility] TYPE CODE TESTS RESULT OUT OF RANGE REFERENCE UNITS PATHOLOGY 1499 LAB AP CASE REPORT Result Comment: Non-gynecolo gic Cytology Case: [id number] Authorizing Provider: Bradley Díaz MD Collected: 06/28/2024 1551 Ordering Location: [facility] Received: 07/01/2024 0743 [facility] Pathologist: Whitney Bernstein MD Specimens: A) - Hepatic Duct brushing, COMMON HEPATIC DUCT BRUSHING B) - Lymph Node, FNA PARADUODENAL LYMPH NODE C) - Liver, LEFT HEPATIC LOBE LESION PATHOLOGY 34 LAB AP REPORT FINAL DIAGNOSIS NARRATIVE Result Comment: A. Hepatic d uct, brushing: - Suspicious for malignancy B. Lymph node, paraduodenal, EUS-guided fine needle aspiration: - Atypical cells present C. Liver, EUS-guided fine needle aspiration: - Adenocarcinoma OLOGY 35 LAB AP DIAGNOSIS COMMENT Result Comment: The cell blo ck from part C contains moderate tumor cells for ancillary studies, if clinically indicated. See also concurrent surgical case, [id number]. PATHOLOGY 32 LAB AP MICROSCOPIC DESCRIPTION Result Comment: A. Satisfact ory for evaluation. Examination of the ThinPrep slide and cell block reveals scattered atypical cells with fine chromatin, nuclear enlargement, and nucleoli in a background of glandular epithelium, inflammation, and debris. B. Satisfactory for evaluation. Examination of the prepared smears and cell block reveals rare atypical cells, abundant lymphocytes, glandular epithelium, inflammation, and blood. C. Satisfactory for evaluation. Examination of the prepared smears and cell block reveals tumor cells exhibiting enlarged nuclei, fine chromatin and nucleoli in a background of hepatocytes, blood and debris. PATHOLOGY 29 LAB AP CLINICAL INFORMATION Order Diagnoses Result Comment: K83.1 - Obst ructive jaundice [ICD-10-CM] K76.9 - Liver lesion [ICD-10-CM] K62.9 - Rectal lesion [ICD-10-CM] PATHOLOGY [id number] LAB AP INTRAOPERATIVE CONSULTATION B. Lymph Node. Result Comment: Rapid on-sit e evaluation was performed by Tatiana Minaya MD. The material examined during rapid on-site evaluation was deemed adequate for diagnosis. Pass #1: Adequate C. Liver. Rapid on-site evaluation was performed by Tatiana Minaya MD. The material examined during rapid on-site evaluation was deemed adequate for diagnosis. Pass #1: Adequate Pass #2: Adequate - scant Pass #3: Defer - cell block *Only select material is examined during the on-site evaluation. Final diagnosis is pending the review of all material submitted.* PATHOLOGY 30 LAB AP GROSS DESCRIPTION Result Comment: A. One brush received in 30 mL CytoLyt with hazy, yellow fluid B. 3 air-dried slides, 1 alcohol-fixed slide, 30 mL CytoLyt with clear, colorless fluid. C. 3 air-dried slides, 2 alcohol-fixed slides, 30 mL CytoLyt with cloudy, red fluid with white flecks. PATHOLOGY 37 LAB AP ADDENDUM 1 Result Comment: Immunohistoc hemical stains were performed with adequate controls. The tumor cells in part C (liver) are strongly positive for CK7. The tumor cells are negative for CK20 and CDX-2. The immunohistochemical profile does not support a metastatic lesion from the colon. The positive CK7 staining, while not specific, could be compatible with cholangiocarcinoma in the correct clinical context. Clinical correlation is recommended. Addendum electronically signed by Whitney Bernstein MD on 07/15/2024 at 11:40 AM Performed By: #### [id number] ### # [facility] ([facility]) [address] [place] [address] PROCEDURE Observed: 06/28/2024 3:00 PM Status: COMPLETED Source: [facility] Airway Date/Time: 06/28/2024 2:50 PM Urgency: elective Airway not difficult General Information and Staff Patient location during procedure: OR Anesthesiologist: Reece Hernandez MD Resident/CLAIM AGENT/CAA: IVIS Reed Performed: resident/CLAIM AGENT/CAA Indications and Patient Condition Indications for airway management: anesthesia Spontaneous Ventilation: absent Sedation level: deep Preoxygenated: yes Patient position: sniffing Mask difficulty assessment: 1 - vent by mask Final Airway Details Final airway type: endotracheal airway Successful airway: ETT Cuffed: yes Successful intubation technique: video laryngoscopy Facilitating devices/methods: intubating stylet Endotracheal tube insertion site: oral Blade: Turner Blade size: #3 ETT size (mm): 7.0 Cormack-Lehane Classification: grade I - full view of glottis Placement verified by: chest auscultation and capnometry Measured from: lips ETT to lips (cm): 21 Number of attempts at approach: 1 Number of other approaches attempted: 0 Additional Comments Lower partial to RN, hard bite block placed HP Observed: 06/28/2024 2:00 PM Status: COMPLETED Source: [facility] History Of Present Illness Jenna Kumar is a 79 y.o. female presenting with a complaint of jaundice and severe pruritus. The patient had CT scan of abdomen that revealed 4.6 x 3.4 cm ill-defined hypoattenuating region in segment 4A and B suspicious for primary hepatic neoplasm, i.e. cholangiocarcinoma versus metastatic disease. The CT scan was also suspicious for rectal adenocarcinoma. Her liver function test revealed total bilirubin of 12.9, alkaline phosphatase of 1074, ALT 499 and AST 273. The patient is cheduled to have an endoscopic ultrasound with ERCP and flexible sigmoidoscopy to assess the findings of the CT scan and for possible stent placement for the history of jaundice and pruritus.Past Medical History She has a past medical history of Anxiety, Bundle branch block, Heart disease, and Hypertension. Surgical History She has no past surgical history on file. Social History She reports that she has never smoked. She has never used smokeless tobacco. She reports current alcohol use of about 2.0 standard drinks of alcohol per week. No history on file for drug use. Family History No family history on file. Allergies Penicillin and Sulfadiazine Medications (Not in a hospital admission) Review of Systems Constitutional: Negative. Respiratory: Negative. Cardiovascular: Negative. Gastrointestinal: Jaundice, dark urine and light-colored stool, and pruritus Genitourinary: Negative. Skin: Negative. Last Recorded Vitals Visit Vitals BP 152/50 Pulse 81 Temp 36.2 ???C (97.2 ???F) Resp 19 Ht 1.626 m (5' 4 ) Wt 68.4 kg (150 lb 12.7 oz) SpO2 99% BMI 25.88 kg/m??? Smoking Status Never BSA 1.76 m??? Physical Exam HEENT: Anicteric sclera, conjunctiva Chest: Unremarkable Heart: Unremarkable Abdomen: Soft, no tenderness Lower extremities: No edema Relevant Lab Results No results found for: NA , K , CL , CO2 , BUN , CREATININE , GLUCOSE , CALCIUM , ANIONGAP , EGFR , BCR Relevant Imaging Results No image results found. Assessment/Plan Jenna Kumar is a 79 y.o. female presenting with a complaint of jaundice and severe pruritus. The patient had CT scan of abdomen that revealed 4.6 x 3.4 cm ill-defined hypoattenuating region in segment 4A and B suspicious for primary hepatic neoplasm, i.e. cholangiocarcinoma versus metastatic disease. The CT scan was also suspicious for rectal adenocarcinoma. Her liver function test revealed total bilirubin of 12.9, alkaline phosphatase of 1074, ALT 499 and AST 273. The patient is cheduled to have an endoscopic ultrasound with ERCP and flexible sigmoidoscopy to assess the findings of the CT scan and for possible stent placement for the history of jaundice and pruritus. ANES Observed: 06/28/2024 1:06 PM Status: COMPLETED Source: [facility] Patient: Jenna Kumar Procedure Information Date/Time: 06/28/24 1400 Scheduled providers: Avelina Cartagena MD; IVIS Reed; Bradley Díaz MD Procedures: EUS (UPPER) W/ EGD ENDOSCOPIC RETROGRADE CHOLANGIOPANCREATOGRAPHY FLEXIBLE SIGMOIDOSCOPY Location: [facility] Relevant Problems Anesthesia (within normal limits) Cardio > 4 METs prior to current illness. Has been seen by cardiology 5 years ago for palpitations. Found to have bundle branch block. Endo Non diabetic GI Obstructive jaundice. /Renal (within normal limits) Neuro/Psych (within normal limits) Pulmonary (within normal limits) Clinical information reviewed: Tobacco Allergies Meds Med Hx Surg Hx Fam Hx Soc Hx Physical Exam Airway Mallampati: II TM distance: >3 FB Neck ROM: full Cardiovascular - normal exam Dental Comments: Lower partial denture, upper front teeth have veneers, a few capped teeth, unsure which. Pulmonary - normal exam Abdominal Anesthesia Plan ASA 3 general The patient is not a current smoker. Patient was not previously instructed to abstain from smoking on day of procedure. Patient did not smoke on day of procedure. intravenous induction Anesthetic plan and risks discussed with patient. Plan discussed with IVIS. Additional Equipment Requests POCT GLUCOSE METER UNSOLICIT ED RESULTS Collected: 06/28/2024 12:54 PM Status: UNK Source: [facility] Order Comment: Waived Testin g in the ED is performed under the ED CLIA certificate #[id number]. TYPE CODE TESTS RESULT OUT OF RANGE REFERENCE UNITS LAB 885 POCT GLUCOSE 96 70-105 mg/dL Result Comment: epawlow Performed By: #### [id number] #### [facility] (JONATHAN) [address] [place] [address] ORDERS ONLY Observed: 06/27/2024 12:00 AM Status: COMPLETED Source: [facility] [id number] Nikki Kumar M 0 1945 F Date Provider Department Center 06/27/2024 3967-JANEL [facility] ASHLY No family history on file ALLERGIES DATE TYPE / CODE NAME / CODE REACTION SEVERITY SOURCE 07/09/2024 DRUG INGREDI/4195 52152(SNOMED CT) CEFTRIAXONE Hives [facility] 07/09/2024 DRUG INGREDI/4195 01745(SNOMED CT) MEROPENEM Itching~Rash [facility] 06/28/2024 Drug Class/082709 003(SNOMED CT) PENICILLINS [facility] 06/28/2024 DRUG INGREDI/4195 89494(SNOMED CT) SULFADIAZINE [facility] 06/28/2024 DRUG INGREDI/4195 81485(SNOMED CT) PENICILLIN [facility] 06/28/2024 DRUG INGREDI/4195 21900(SNOMED CT) SULFADIAZINE [facility] 06/24/2024 Drug Allergy/4160 67460(SNOMED CT) Penicillins/[id number] 76(RXNORM) Unknown Reaction Unknown [facility] 06/24/2024 Drug Allergy/4160 44461(SNOMED CT) sulfadiazine/H021347 814(RXNORM) Comment:Sulfa Unknown [facility] ENCOUNTERS ADMIT/DISCHARGE ACCOUNT NUMBER ADMITTING ENCOUNTER CLASS LOCATION SOURCE 09/20/2024/09/21/19 [id number] OLIVIA DUARTE [facility] POOLBed: 32 [facility] 09/12/2024/09/13/19 [id number] [facility] 09/12/2024/09/13/[id number] [facility] 09/09/2024/09/10/[id number] [facility] 09/05/2024/09/06/[id number] [facility] 08/22/2024/08/24/[id number] [facility]:HESA [facility] 08/13/2024/08/14/19 25 [id number] Ambulatory Building:[facility] 08/13/2024/08/14/19 25 [id number] BRADLEY DÍAZ Ambulatory Building:[facility] 08/01/2024/08/03/[id number] [facility]:HESA [facility] 07/23/2024/07/24/[id number] [facility]:PCSA [facility] 07/19/2024/07/23/[id number] [facility] 07/12/2024/07/12/19 25 [id number] Ambulatory Buildin [address] [facility] 07/12/2024/07/12/19 25 [id number] Ambulatory Buildin 23620 [facility] 07/08/2024 [id number] Inpatient Encounter Building:[facility] 07/08/2024 [id number] Inpatient Encounter Building:[facility] 07/02/2024 [id number] Inpatient Encounter Building:[facility] 07/01/2024 [id number] Emergency Building:[facility] 07/01/2024/07/11/19 25 [id number] CHIARA MONTOYA Inpatient Encounter Building:MED SURGRoom: 411Bed: 4110-01 [facility] 07/01/2024/07/01/19 [id number] Saad Devi [facility]06/28/19 [id number] [facility]ulatory [facility] 06/28/2024/06/28/19 [id number] BRADLEY DÍAZ Ambulatory Building:[facility] PAYERS ENCOUNTER GUARANTOR PAYER SUBSCRIBER SOURCE 09/20/2024 Primary Insurance:MEDICARE A AND BPolicy Number: [id number] Date:1153-45-26Wwcj Name:Saw NORRIS: [id number] [place], [address] 09/20/2024 Secondary Insurance:AETNA MEDICARE SUPPLEMENTPolicy Number: [id number] Date:9091-66-58Shqi Name:Suzie NORRIS: [id number] [place] 09/12/2024 Primary Insurance:MEDICARE A AND BPolicy Number: [id number] Date:7900-39-98Urow Name:Saw NORRIS: [id number] [place], [facility]11 [facility] 09/12/2024 Secondary Insurance:AETNA MEDICARE SUPPLEMENTPolicy Number: [id number] Date:1378-05-19Gonz Name:Suzie NORRIS: [id number] [place], [facility]11 [facility] 09/12/2024 Primary Insurance:MEDICARE A AND BPolicy Number: [id number] Date:7539-31-93Wnbr Name:Saw NORRIS: [id number] [place], [facility]11 [facility] 09/12/2024 Secondary Insurance:AETNA MEDICARE SUPPLEMENTPolicy Number: [id number] Date:8744-69-86Oarb Name:Suzie Barton VLADLOUDOB: [id number] [place] [address] [facility] 09/09/2024 Primary Insurance:MEDICARE A AND BPolicy Number: [id number] Date:9075-23-42Lakx Name:Saw Barton VLADLOUDOB: [id number] [place], [facility]11 [facility] 09/09/2024 Secondary Insurance:AETNA MEDICARE SUPPLEMENTPolicy Number: [id number] Date:4686-93-18Ctzv Name:Suzie Barton VLADLOUDOB: [id number] [place], [address] 09/05/2024 Primary Insurance:MEDICARE A AND BPolicy Number: [id number] Date:5813-37-62Neve Name:Saw Barton VLADLOUDOB: [id number] [place], [address] 09/05/2024 Secondary Insurance:AETNA MEDICARE SUPPLEMENTPolicy Number: [id number] Date:2676-13-59Ierw Name:Suzie Barton VLADLOUDOB: [id number] [place], [facility]11 [facility] 08/22/2024 Primary Insurance:MEDICARE A AND BPolicy Number: [id number] Date:9714-97-89Jden Name:Saw Barton VLADLOUDOB: [id number] [place], [facility]11 [facility] 08/22/2024 Secondary Insurance:AETNA MEDICARE SUPPLEMENTPolicy Number: [id number] Date:4575-45-72Quzq Name:Suzie KUMARDOB: [id number] [place], [facility]11 [facility] 08/13/2024 Primary Insurance:MEDICAREPolic y Number: [id number] Date:9671-28-18Slff Name:Medicare ELLINOR M VLADLOUDOB: [id number] [place] [address] [facility] 08/13/2024 Secondary Insurance:AETNAPolicy Number: [id number] Date:7485-70-71Sjed Name:Rosalino KUMARDOB: 6913-82-29JAQ755 [place] [address] [facility] 08/13/2024 Primary Insurance:MEDICAREPolic y Number: [id number] Date:1410-17-51Yldp Name:Medicare ELLINOR M COVELLADOB: [id number] [place] [address] [facility] 08/13/2024 Secondary Insurance:AETNAPolicy Number: [id number] Date:0821-56-73Ugws Name:Rosalino KUMARDOB: [id number] [place] [address] [facility] 08/01/2024 Primary Insurance:MEDICARE A AND BPolicy Number: [id number] Date:4353-44-65Oybu Name:Saw Barton VLADLOUDOB: [id number] [place], [facility]11 [facility] 08/01/2024 Secondary Insurance:AETNA MEDICARE SUPPLEMENTPolicy Number: [id number] Date:9988-40-20Jccs Name:Suzie Barton VLADLOUDOB: [id number] [place], [facility]11 [facility] 07/23/2024 Primary Insurance:MEDICARE A AND BPolicy Number: [id number] Date:4388-19-93Kwph Name:Saw KUMARDOB: [id number] [place] [address] [facility] 07/23/2024 Secondary Insurance:AETNA MEDICARE SUPPLEMENTPolicy Number: [id number] Date:9245-40-86Upix Name:C ELLJUSTIN KUMARDOB: [id number] [place] [address] [facility] 07/19/2024 Primary Insurance:MEDICARE A AND BPolicy Number: [id number] Date:7015-90-08Avee Name:Saw KUMARDOB: [id number] [place] [address] [facility] 07/19/2024 Secondary Insurance:AETNA MEDICARE SUPPLEMENTPolicy Number: [id number] Date:8301-30-31Ukqs Name:Suzie KUMARDOB: [id number] [place], [address] 07/12/2024 Primary Insurance:MEDICAREPolic y Number: [id number] Date:3012-21-32Yxnd Name:Medicare ELLINOR M COVELLADOB: [id number] [place], [address] 07/12/2024 Secondary Insurance:AETNAPolicy Number: [id number] Date:4843-46-63Yyyc Name:Rosalino KUMARDOB: 0227-46-79ZHV214 [place], [address] 07/12/2024 Primary Insurance:MEDICAREPolic y Number: [id number] Date:6796-91-12Impt Name:Medicare ELLINOR M COVELLADOB: [id number] [place], [facility]11 [facility] 07/12/2024 Secondary Insurance:AETNAPolicy Number: [id number] Date:8732-07-93Axax Name:Rosalino KUMARDOB: [id number] [place], [facility]11 [facility] 07/08/2024 Primary Insurance:MEDICAREPolic y Number: [id number] Date:3073-18-21Vzim Name:Medicare ELLINOR M COVELLADOB: [id number] [place], [facility]11 [facility] 07/08/2024 Secondary Insurance:AETNAPolicy Number: [id number] Date:7676-34-60Xucd Name:Supp JENNA KUMARDOB: [id number] [place] [address] [facility] 07/08/2024 Primary Insurance:MEDICAREPolic y Number: [id number] Date:2467-28-24Ihcq Name:Medicare JENNA FONGELLADOB: [id number] [place] [address] [facility] 07/08/2024 Secondary Insurance:AETNAPolicy Number: [id number] Date:3872-09-58Krti Name:Supp JENNA KUMARDOB: [id number] [place] [address] [facility] 07/02/2024 Primary Insurance:MEDICAREPolic y Number: [id number] Date:9823-97-93Oshs Name:Medicare JENNA FONGELLADOB: [id number] [place] [address] [facility] 07/02/2024 Secondary Insurance:AETNAPolicy Number: [id number] Date:3808-22-08Olmh Name:Supp JENNA FONGELLADOB: [id number] [place] [address] [facility] 07/01/2024 Primary Insurance:MEDICAREPolic y Number: [id number] Date:6439-05-61Eija Name:Medicare JENNA Barton COVELLADOB: [id number] [place] [address] [facility] 07/01/2024 Secondary Insurance:AETNAPolicy Number: [id number] Date:9499-38-87Vjzd Name:Supp JENNA FONGELLADOB: [id number] [place] [address] [facility] 07/01/2024 Primary Insurance:MEDICAREPolic y Number: [id number] Date:5460-61-12Ckbk Name:Medicare JENNA KUMARDOB: [id number] [place] [address] [facility] 07/01/2024 Secondary Insurance:AETNAPolicy Number: [id number] Date:8023-03-66Zwtl Name:Supp JENNA KUMARDOB: [id number] [place] [address] [facility] 07/01/2024 Jenna Barton Mxiedjc[address] [place], [place] [address]Lcu: () Primary Insurance:Self PayPolicy Number: Effective Date:2024-07-01 [facility]/28/2024 Primary Insurance:MEDICAREPolic y Number: [id number] Date:5088-39-35Rkfy Name:Medicare JENNA KUMARDOB: [id number] [place] [address] [facility] 06/28/2024 Secondary Insurance:AETNAPolicy Number: [id number] Date:7325-26-93Qsgw Name:Supp JENNA FONGELLADOB: [id number] [place] [address] [facility] 06/28/2024 Primary Insurance:MEDICAREPolic y Number: [id number] Date:6805-20-20Gtsf Name:Medicare JENNA FONGELLADOB: [id number] [place] [address] [facility] 06/28/2024 Secondary Insurance:AETNAPolicy Number: [id number] Date:4550-16-11Ynbx Name:Supp JENNA KUMARDOB: 4109-23-05GRR028 [place] [address] [facility]
[2024-10-05] VITALS (15 sets, daily range): BP systolic 153–176; BP diastolic 79–113; PULSE 86–99; TEMP 36.7; O2SAT 93–98; BMI 22.3
--- OUTSIDE RECORDS SUMMARY | 2024-10-05 22:04 | XMS_ITS | Referral Summary ---
Author Organization [facility] Address [address] [place] [address] Care Team Providers Care Pump House Technician Name Role Phone Mayito Jade DO Primary Care Provider [phone] Nathalia Herman MD Unavailable Encounters Date Type Department Care Team Description 10/03/2024 Telephone [facility] Endoscopy [address] [place] [phone] Janel Hayes, RN 09/27/2024 Telephone [facility] Endoscopy [address] [place] [phone] Janel Hayes, RN 08/21/2024 Telephone [facility] Endoscopy [address] [place] [phone] Janel Hayes, RN 08/13/2024 Travel 08/13/2024 11:23 AM EDT - 08/13/2024 11:59 PM EDT Hospital Encounter [facility] X-Ray Imaging [address] [place] [address] Biliary stricture (CMS/HCC) Discharge Disposition: Home or Self Care () 08/13/2024 10:15 AM EDT - 08/13/2024 11:22 AM EDT Hospital Encounter [facility] Endoscopy [address] [place] [phone] Bradley Pope MD Uberoi, Ravindera, MD Cox, Jonathan D CAA Biliary stricture (CMS/HCC); Liver lesion Discharge Disposition: Home or Self Care () 08/13/2024 11:13 AM EDT Anesthesia Event [facility] [address] [place] [address] Abdifatah Irwin MD Cox, Jonathan D, CAA 08/02/2024 Travel 07/30/2024 Telephone [facility] Endoscopy [address] [place] [phone] Janel Hayes, MARTI 07/19/2024 Orders Only [facility] [address] [place] [address] Janel Hayes, MARTI Biliary stricture (CMS/HCC) (Primary Dx) 07/19/2024 Orders Only [facility] On[facility] Clinic [address] [place] [phone] Los Li MD 07/16/2024 Telephone [facility] Gastro[facility]ology [address] [place] [address] [place] [phone] Katarina Preston LPN 07/12/2024 12:05 AM EST - 07/12/2024 11:59 PM EST Hospital Encounter [facility] Radiology External Films [address] [place] [phone] Discharge Disposition: Home or Self Care () 07/12/2024 - 07/12/2024 12:04 AM EST Hospital Encounter [facility] Radiology External Films [address] [place] [address] Rectal mass Discharge Disposition: Home or Self Care () 07/12/2024 Orders Only [facility] [address] [place] [phone] Sandra Gustafson MA Rectal mass (Primary Dx) 07/11/2024 Orders Only [facility] 4AB Urology [address] [place] [address] Nevin Talavera, MARTI 07/01/2024 9:06 PM EST - 07/11/2024 6:02 PM EST Hospital Encounter [facility] 4AB Urology [address] [place] [phone] Rama Joseph PA-C Horani, Omar, MD Iqbal, Amna, MD Mahmood, Asif, MD Chang, Ronni Thomas MD GI bleed (Primary Dx); Fall, initial encounter; Jaundice; Hyperbilirubinemia; Gastrointestinal hemorrhage, unspecified gastrointestinal hemorrhage type; Abnormal LFTs; Acute pancreatitis, unspecified complication status, unspecified pancreatitis type; Primary hypertension; Gastrointestinal hemorrhage associated with duodenitis; Rectal mass; Gastrointestinal hemorrhage associated with gastric ulcer; Hypokalemia; E coli bacteremia; Urticaria Discharge Disposition: Home-Health Care [facility] (06) 07/08/2024 11:27 AM EST Anesthesia Event [facility] [address] [place] [phone] Roger Hernandez MD 07/08/2024 Travel from Last 3 Months Allergies Active Allergy Reactions Criticality Noted Date Comments Ceftriaxone Hives Medium 07/09/2024 Meropenem Itching,Rash Medium 07/09/2024 Penicillin Hives 06/28/2024 Sulfadiazine Hives 06/28/2024 Medications Medication Sig Dispensed Refills Start Date End Date Status diazePAM (Valium) 2 mg tabletIndications:a nxiety Take 2 mg by mouth every 6 (six) hours if needed for anxiety. Active losartan (Cozaar) 25 mg tablet Take 25 mg by mouth in the morning. Active metoprolol tartrate (Lopressor) 25 mg tabletIndications:P rimary hypertension Take 0.5 tablets (12.5 mg) by mouth two times daily for 196 doses. 98 tablet 07/04/2024 10/10/2024 Active pantoprazole (ProtoNix) 40 mg EC tabletIndications:G I bleed Take 1 tablet (40 mg) by mouth before breakfast and before evening meal for 194 doses. Do not crush, chew, or split. 194 tablet 07/04/2024 10/09/2024 Active Additional Information Patient not taking.Reported on 08/02/2024 hydrocortisone 1 % creamIndications:Ur ticaria Apply topically if needed in the morning and at bedtime for rash for up to 7 days. 2 g 07/09/2024 Active Active Problems Problem Noted Date Diagnosed Date Posthemorrhagic anemia 07/02/2024 Assessment & Plan (07/02/2024 1:29 AM EST): As above Jaundice 07/02/2024 Primary hypertension 07/02/2024 Assessment & Plan (07/02/2024 1:29 AM EST): Since on beta-cornell and history of arrhythmia IV metoprolol since n.p.o. keep potassium around 4 magnesium around 2 Hypokalemia 07/02/2024 Assessment & Plan (07/02/2024 1:29 AM EST): Monitor and replace electrolytes will recheck BMP and follow Liver mass 07/02/2024 Assessment & Plan (07/02/2024 1:29 AM EST): Workup by gastroenterology status post cholangiogram status post biliary sphincterotomy brushing for cytology performed biopsy done stents placed workup revealing common hepatic duct mass also poorly demarcated left hepatic lobe lesion the left hepatic lobe lesion measures 15.4 mm x 14.5 mm and status post fine- needle aspiration followed GI check AFP Obstructive jaundice 07/02/2024 Assessment & Plan (07/02/2024 1:30 AM EST): As above serial LFTs Hyponatremia IV hydration recheck chemistry in the morning Leukocytosis suspect hemoconcentration recheck in the morning Mild metabolic acidosis as above hypovolemia lactate was normal recheck electrolytes creatinine after IV hydration Elevated lipase/possible pancreatitis patient n.p.o. IV fluids recheck lipase in the morning GI bleed 07/01/2024 Assessment & Plan (07/02/2024 1:29 AM EST): N.p.o. hemoglobin hematocrit every 12 hours IV Protonix GI to see patient Social History Tobacco Use Types Packs/Day Years Used Date Smoking Tobacco: Never Smokeless Tobacco: Never Tobacco Cessation:Counseling Given: Not Answered Alcohol Use Standard Drinks/Week Comments Not Currently 0 (1 standard drink = 0.6 oz pur e alcohol) NOTHING IN LAST 2-3 MONTH [facility] Utilities Answer Date Recorded In the past 12 months has th e electric, gas, oil, or water Pocits threatened to shut off services in your home? No 07/02/2024 Humiliation, Afraid, Rape, and Kick questionnair e Answer Date Recorded Within the last year, have y ou been afraid of your partner or ex-partner? No 07/02/2024 Emotionally Abused Not on file 07/02/2024 Physically Abused Not on file 07/02/2024 Sexually Abused Not on file 07/02/2024 Overall Financial Resource Strain (CARDIA) Answe r Date Recorded How hard is it for you to pa y for the very basics like food, housing, medical care, and heating? Not hard at all 07/02/2024 Transportation Answer Date Recorded In the past 12 months, has l ack of transportation kept you from medical appointments or from getting medications? No 07/02/2024 Lack of Transportation (Non-Medical) Not on file 07/02/2024 Housing Stability Vital Sign Answer David e Recorded In the last 12 months, was t here a time when you were not able to pay the mortgage or rent on time? No 07/02/2024 Number of Times Moved in the Last Year Not on fi le 07/02/2024 At any time in the past 12 m [facility], were you homeless or living in a detention (including now)? No 07/02/2024 Hunger Vital Sign Answer Date Recorded Within the past 12 months, y ou worried that your food would run out before you got the money to buy more. Never true 07/02/19 25 Ran Out of Food in the Last Year Not on file 07/02/2024 Sex and Gender Information Value Date Recorded Sex Assigned at Female 07/01/2024 9:20 PM EST Gender Identity Female 07/01/2024 9:20 PM EST Sexual Orientation Heterosexual or Straight 06/15 9:20 PM EST Last Filed Vital Signs Vital Sign Reading Time Taken Comments Blood Pressure 135/63 08/13/2024 1:05 PM EDT Pulse 66 08/13/2024 1:05 PM EDT Temperature 36 C (96.8 F) 08/13/2024 1:05 PM EDT Respiratory Rate 16 08/13/2024 1:05 PM EDT Oxygen Saturation 98% 08/13/2024 12:50 PM EDT Inhaled Oxygen Concentration - - Weight 61.5 kg (135 lb 9.3 oz) 08/13/2024 10:24 AM EDT Height 162.6 cm (5' 4 ) 08/13/2024 10:24 AM EDT Body Mass Index 23.27 08/13/2024 10:24 AM EDT Plan of Treatment Not on file Medical Devices Implanted Type Area Carpet Yarn Winder Operator Device Identifier Shelf Expiration Date Model / Serial / Lot Stent,Bili,Advan [id number] - [id number] Implanted:Qty: 1 on 06/28/2024 by Bradley Pope MD at [facility] Stent N/A: Bile Duct [employer] [id number] 02/02/2026 [id number] / / [id number] Stent,Kit,Pancre atic,[id number] - [id number] Implanted:Qty: 1 on 06/28/2024 by Bradley Pope MD at [facility] Stent N/A: Pancreas [employer]SC IMED [id number] 09/14/2025 [id number] / / [id number] Stent,Bili,Advan ix,[id number] - [id number] Implanted:Qty: 1 on 06/28/2024 by Bradley Pope MD at [facility] Stent N/A: Bile Duct [employer] [id number] 03/04/2026 [id number] / / [id number] Stent,Bili,Advan ix,[id number] - Sgtin [id number] - [id number] Implanted:Qty: 1 on 08/13/2024 by Bradley Pope MD at [facility] Stent N/A: Bile Duct [employer] [id number] 04/25/2026 [id number] / GTIN [id number] / [id number] Description:Plastic biliary stent Stent,Bili,Advan ix,[id number] - Sgtin [id number] - [id number] Implanted:Qty: 1 on 08/13/2024 by Bradley Pope MD at [facility] Stent N/A: Bile Duct [employer] [id number] 06/07/2026 [id number] / NASIMIN [id number] / [id number] Description:Plastic biliary stent Procedures Procedure Name Priority Date/Time Associated Diagnosis Comments FL LESS THAN 1 HOUR INTRAOPERATIVE Routine 08/13/2024 12:20 PM EDT Biliary stricture (CMS/HCC) ENDOSCOPIC RETROGRADE CHOLANGIOPANCREATOGRAPHY Routine 08/13/2024 12:17 PM EDT Biliary stricture (CMS/HCC) Liver lesion DE AN ELECTIVE ENDOTRACHEAL AIRWAY Routine 08/13/2024 11:21 AM EDT POCT GLUCOSE METER UNSOLICITED RESULTS Routine 08/13/2024 10:[address] TRANSFER OF OUTSIDE FILMS Routine 12:05 AM EST XR TRANSFER OF OUTSIDE FILMS Routine 12:00 AM EST Rectal mass CBC STAT 07/11/2024 8:19 AM EST COMPREHENSIVE METABOLIC PANEL STAT 07/11/2024 8:19 AM EST MANUAL DIFFERENTIAL STAT 07/10/2024 8:23 AM EST CBC WITH AUTO DIFFERENTIAL STAT 07/10 8:23 AM EST CBC AND DIFFERENTIAL STAT 07/10/2024 8:23 AM EST COMPREHENSIVE METABOLIC PANEL STAT 07/10/2024 8:23 AM EST MANUAL DIFFERENTIAL Pending Discharge 07/09/2024 5:04 AM EST CBC WITH AUTO DIFFERENTIAL Pending Discharge 07/09/2024 5:04 AM EST BASIC METABOLIC PANEL Pending Discharge 07/09/2024 5:04 AM EST HEPATIC FUNCTION PANEL Pending Discharge 07/09/2024 5:04 AM EST CBC AND DIFFERENTIAL Routine 07/09/2024 5:04 AM EST ECG 12-LEAD Routine 07/08/2024 2:32 PM EST DIAGNOSTIC COLONOSCOPY Routine 12:10 PM EST Rectal mass HISTOLOGY - TISSUE EXAM Routine 07/08/19 12:03 PM EST Fall, initial encounter Jaundice Hyperbilirubinemia Gastrointestinal hemorrhage, unspecified gastrointestinal hemorrhage type Abnormal LFTs Acute pancreatitis, unspecified complication status, unspecified pancreatitis type GI bleed Primary hypertension Gastrointestinal hemorrhage associated with duodenitis Rectal mass BASIC METABOLIC PANEL Pending Discharge 07/08/2024 7:06 AM EST HEPATIC FUNCTION PANEL Pending Discharge 07/08/2024 7:06 AM EST CBC Pending Discharge 07/08/2024 7:06 AM EST from Last 3 Months Results * FL LESS THAN 1 HOUR INTRAOPERATIVE (08/13/2024 12:20 PM EDT) Anatomical Region Laterality Modality X-Ray Angiograph y 08/13/2024 2:54 PM EDT Impressions 08/13/2024 2:54 PM EDT Please refer to the operative note for clinical correlation. Electronically signed: Jigar Davidson. Narrative 08/13/2024 2:54 PM EDT History: Biliary stricture. TECHNIQUE: This dictation is made to confirm the use of fluoroscopy by the primary service. Fluoroscopy: Fluoroscopy time: 483 sec, air kerma Radiation dose to 152 mGy, and 4 images. Procedure Note Jigar Davidson MD - 08/13/2024 History: Biliary stricture. TECHNIQUE: This dictation is made to confirm the use of fluoroscopy by the primaryservice. Fluoroscopy: Fluoroscopy time: 483 sec, air kerma Radiation dose to 152 mGy, and 4images. IMPRESSION: Please refer to the operative note for clinical correlation. Electronically signed: Jigar Davidson. 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 The patient is presenting today for ERCP for stents replacement. 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 Risks of pancreatitis, infection, perforation, hemorrhage, adverse drug reaction and aspiration were discussed. The patient was placed in the left lateral decubitus position. The patient was monitored continuously with ECG tracing, pulse oximetry, blood pressure monitoring, and direct observations. The duodenoscope was inserted into the mouth and advanced to the third portion of the duodenum; findings and interventions are described below. The patient tolerated the procedure well, and there were no immediate complications. She was taken to the recovery area in stable condition. Findings: The examination of the duodenum revealed to plastic biliary stent protruding through the papilla into the duodenal lumen. On the opposite wall of the duodenum there were 3 hemoclips that were placed previously for a bleeding ulcer. The Rx-44 sphincterotome loaded with a 0.035 inch guidewire was then used and both biliary stents were cannulated and 2 guidewires were placed within the up to the left intrahepatic ducts. Both stents were removed with a snare. A 9-12 mm injecting below retrieval balloon catheter was advanced over the guidewire into the common bile duct. The common bile duct was swept a few times. Sludge with a small stone's fragments were removed from the biliary tree with balloon sweep. Cholangiogram was performed and a high-grade common hepatic duct stricture was identified. Two plastic biliary stents, 7 Chinese by 15 cm and 7 Chinese by 12 cm, were placed up to the left intrahepatic biliary system. Good biliary drainage was achieved. The procedure was performed under fluoroscopic guidance and I did the interpretation of the fluoroscopic images. Specimens: No specimens collected Complications: None Estimated blood loss: Minimal Disposition: Home Condition: stable Impression: Successful removal of previously placed 2 plastic biliary stents. Biliary sludge and few small stone's fragments were removed from the biliary tree during balloon sweep. High grade common hepatic duct/hilar stricture was identified. The right intrahepatic ducts could not be opacified. The left intrahepatic ducts were opacified and were slightly dilated. Two biliary stents, 7 Chinese by 15 cm and 7 Chinese by 12 cm, were placed up to the left intrahepatic biliary tree. Good biliary drainage was achieved. Recommendations: Clear liquid diet today, advance diet tomorrow morning if the patient is asymptomatic. Follow-up with oncology team. Repeat ERCP in 6 to 8 weeks for biliary stents replacement. Attending Attestation: I performed the procedure. Mayito Jade DO ENDOSCOPY PROCEDURE ORDERABLES * DE AN ELECTIVE ENDOTRACHEAL AIRWAY (08/13/2024 11:21 AM EDT) Narrative Issa Min CAA - 08/13/2024 11:21 AM EDT IVIS Gilmore 08/13/2024 11:30 AM Airway Date/Time: 08/13/2024 11:21 AM Urgency: elective Airway not difficult General Information and Staff Patient location during procedure: OR Anesthesiologist: Abdifatah Irwin MD Resident/SPOOL FIXER/CAA: IVIS Gilmore Performed: resident/SPOOL FIXER/IVIS Indications and Patient Condition Indications for airway [...] 21 Number of attempts at approach: 1 Abdifatah Irwin MD ANESTHESIA ORDERABLE S * POCT glucose meter (08/13/2024 10:34 AM EDT) Glucose POC 87 70 - 105 mg/dL 08/13/2024 11:02 AM EDT [facility] [place] Comment:ltolles Blood Capillary blood specimen / Unknown 08/13/2024 10:34 AM EDT 08/13/2024 11:01 AM EDT Narrative [facility] ([facility] - 08/13/2024 11:02 AM EDT Waived Testing in the ED is performed under the ED CLIA certificate #[id number]. Bradley Pope MD LAB BLOOD ORDERABLES Performing Organization Address City/[facility]/ZIP Co de Phone Number [facility] ([facility] [place] [address] [place] [address] * CT transfer of outside films (07/12/2024 12:05 AM EST) Narrative IMAGING - 07/12/2024 2:31 PM EST This order has been auto-finalized and does not contain a result. Nathalia Herman MD IMG CT PROCEDURES Performing Organization Address City/[facility]/ZIP Co de Phone Number IMAGING * XR transfer of outside films (07/12/2024 12:00 AM EST) Narrative IMAGING - 07/12/2024 2:30 PM EST This order has been auto-finalized and does not contain a result. Nathalia Herman MD IMG XR PROCEDURES Performing Organization Address City/[facility]/ZIP Co de Phone Number IMAGING * (ABNORMAL) CBC (07/11/2024 8:19 AM EST) Only the most recent of2 resultswithin the time period is included. Auto WBC 20.05(H) 4.00 - 10.60 10*3/uL 07/11/2024 8:47 AM EST [facility] ([facility] RBC 3.19(L) 3.80 - 5.00 10*6/uL 07/11/2024 8:47 AM EST [facility] ([facility] Hemoglobin 9.4(L) 12.0 - 15.0 g/dL 07/11/2024 8:47 AM [facility] ([facility]) Hematocrit 29.2(L) 36.0 - 48.0 % 07/11/2024 8:47 AM [facility] ([facility]) MCV 91.5 82.0 - 98.0 fL 07/11/2024 8:47 AM [facility] ([facility]) MCH 29.5 27.0 - 33.0 pg 07/11/2024 8:47 AM [facility] ([facility]) MCHC 32.2 32.0 - 35.0 g/dL 07/11/2024 8:47 AM [facility] ([facility] [place] RDW 22.5(H) 11.5 - 15.0 % 07/11/2024 8:47 AM [facility] ([facility] Platelets 460(H) 150 - 400 10*3/uL 07/11/2024 8:47 AM [facility] ([facility] Immature Platelet Fraction % 4.9 0.8 - 6.3 % 07/11/2024 8:47 AM [facility] ([facility] Blood Venous blood specimen / Unknown Venipuncture / Unknown 07/11/2024 8:19 AM EST 07/11/2024 8:35 AM EST Ronni Rosales MD LAB BLOOD ORDERABLES [facility] ([facility] [address] [place] [address] * (ABNORMAL) Comprehensive metabolic panel (07/11/2024 8:19 AM EST) Only the most recent of2 resultswithin the time period is included. Sodium 135(L) 136 - 145 mmol/L 07/11/2024 9:19 AM [facility] ([facility] [place] Potassium 3.7 3.5 - 5.1 mmol/L 07/11/2024 9:19 AM [facility] ([facility] [place]) Chloride 104 98 - 107 mmol/L 07/11/2024 9:19 AM [facility] ([facility] [place] CO2 24 21 - 31 mmol/L 07/11/2024 9:19 AM [facility] ([facility] [place] Anion Gap 11 7 - 20 mmol/L 07/11/2024 9:19 AM [facility] ([facility] [place] BUN 8 7 - 25 mg/dL 07/11/2024 9:19 AM [facility] ([facility] [place]) Creatinine 0.58(L) 0.60 - 1.20 mg/dL 07/11/2024 9:19 AM [facility] ([facility] [place] BUN/Creatinine Ratio 13.8 06/16 9:19 AM [facility] ([facility] [place]) Glucose 99 70 - 100 mg/dL 07/11/2024 9:19 AM [facility] ([facility] [place]) Calcium 8.0(L) 8.6 - 10.3 mg/dL 07/11/2024 9:19 AM [facility] ([facility] [place] AST 88(H) 13 - 39 U/L 07/11/2024 9:19 AM [facility] ([facility] [place]) ALT (SGPT) 61(H) 7 - 52 U/L 07/11/2024 9:19 AM [facility] ([facility] [place] Alkaline Phosphatase 753(H) 34 - 104 U/L 07/11/2024 9:19 AM [facility] ([facility] [place] Total Protein 4.8(L) 6.0 - 8.3 g/dL 07/11/2024 9:19 AM [facility] ([facility] [place]) Albumin 2.4(L) 3.5 - 5.7 g/dL 07/11/2024 9:19 AM [facility] ([facility] [place] Total Bilirubin 5.5(H) 0.3 - 1.0 mg/dL 07/11/2024 9:19 AM [facility] ([facility] [place]) eGFR 90.9 >60.0 mL/min/1. 73m*2 07/11/2024 9:19 AM [facility] ([facility] [place]) Comment:[facility] s estimated glomerular filtration rate (eGFR) will no longer include consideration of race in its calculation. The [employer] s eGFR Task Force developed new recommendations for [...] disproportionately affect any one group of individuals. Blood Venous blood specimen / Unknown Venipuncture / Unknown 07/11/2024 8:19 AM EST 07/11/2024 8:34 AM EST Ronni Rosales MD LAB BLOOD ORDERABLES [facility] [address] [place] [address] * (ABNORMAL) CBC auto differential (07/10/2024 8:23 AM EST) Only the most recent of2 resultswithin the time period is included. Auto WBC 19.79(H) 4.00 - 10.60 10*3/uL 07/10/2024 9:03 AM [facility] ([facility] [place] RBC 3.36(L) 3.80 - 5.00 10*6/uL 07/10/2024 9:03 AM [facility] ([facility]) Hemoglobin 9.7(L) 12.0 - 15.0 g/dL 07/10/2024 9:03 AM [facility] ([facility] [place] Hematocrit 30.7(L) 36.0 - 48.0 % 07/10/2024 9:03 AM [facility] ([facility] [place]) MCV 91.4 82.0 - 98.0 fL 07/10/2024 9:03 AM [facility] ([facility] [place]) MCH 28.9 27.0 - 33.0 pg 07/10/2024 9:03 AM [facility] ([facility] [place]) MCHC 31.6(L) 32.0 - 35.0 g/dL 07/10/2024 9:03 AM [facility] ([facility] [place] RDW 22.9(H) 11.5 - 15.0 % 07/10/2024 9:03 AM [facility] ([facility] Platelets 471(H) 150 - 400 10*3/uL 07/10/2024 9:03 AM EST [facility] ([facility] [place] nRBC % 0.0 0 % 07/10/2024 9:03 AM [facility] ([facility] [place]) Immature Platelet Fraction % 5.4 0.8 - 6.3 % 07/10/2024 9:03 AM EST [facility] [place] Blood Venous blood specimen / Unknown Venipuncture / Unknown 07/10/2024 8:23 AM EST 07/10/2024 8:38 AM EST Ronni Rosales MD LAB BLOOD ORDERABLES [facility] ([facility] [place] [address] [place] [address] * (ABNORMAL) Manual Differential (07/10/2024 8:23 AM EST) Only the most recent of2 resultswithin the time period is included. Metamyelocytes % 2.0(H) 0.0 - 0.0 % 07/10/2024 10:27 AM [facility] ([facility] Atypical Lymphocytes % 0.0 0.0 - 0.0 % 07/10/2024 10:27 AM [facility] [facility] [place] Neutrophils Absolute 13.5(H) 1.6 - 7.6 10*3/uL 07/10/2024 10:27 AM [facility] ([facility] [place] Lymphocytes Absolute 3.80 1.20 - 4.00 10*3/uL 07/10/2024 10:27 AM [facility] ([facility] [place] Monocytes Absolute 0.91 0.10 - 1.00 10*3/uL 07/10/2024 10:27 AM [facility] ([facility] [place] Eosinophils Absolute 1.19(H) 0.00 - 0.50 10*3/uL 07/10/2024 10:27 AM [facility] ([facility] [place] Basophils Absolute 0.00 0.00 - 0.20 10*3/uL 07/10/2024 10:27 AM [facility] ([facility] [place] Metamyelocytes Absolute 0.40(H) 0.00 10*3/uL 07/10/2024 10:27 AM EST [facility] ([facility] [place] Atypical Lymphs Absolute 0.00 0.00 10*3/uL 07/10/2024 10:27 AM [facility] ([facility] [place] Anisocytosis Moderate 07/10/2024 10:27 AM [facility] ([facility] [place] Poikilocytes Slight 07/10/2024 10:27 AM [facility] ([facility] [place] Polychromasia Moderate 07/10/2024 10:27 AM [facility] ([facility] [place] Hypochromia Slight 07/10/2024 10:27 AM [facility] ([facility] [place] Giant PLTs Present 07/10/2024 10:27 AM [facility] ([facility] [place] Neutrophils % 68.2 40.0 - 72.0 % 07/10/2024 10:27 AM [facility] ([facility] [place] Lymphocytes % 19.2(L) 20.0 - 45.0 % 07/10/2024 10:27 AM [facility] ([facility] [place] Monocytes % 4.6(L) 5.0 - 12.0 % 07/10/2024 10:27 AM [facility] ([facility] [place] Eosinophils % 6.0 0.0 - 6.0 % 07/10/2024 10:27 AM [facility] ([facility] [place] Basophils % 0.0 0.0 - 1.0 % 07/10/2024 10:27 AM [facility] ([facility] [place] Plasma Cells % 0 0 % 07/10/2024 10:27 AM [facility] ([facility] [place] Blood Venous blood specimen / Unknown Venipuncture / Unknown 07/10/2024 8:23 AM EST 07/10/2024 8:38 AM EST Ronni Rosales MD LAB BLOOD ORDERABLES [facility] ([facility] [place] [address] [place] [address] * (ABNORMAL) Hepatic function panel (07/09/2024 5:04 AM EST) Only the most recent of2 resultswithin the time period is included. Total Bilirubin 6.0(H) 0.3 - 1.0 mg/dL 07/09/2024 6:27 AM EST [facility] ([facility] [place] Bilirubin, Direct 3.6(H) 0 - 0.2 mg/dL 07/09/2024 6:27 AM EST [facility] ([facility] [place] Alkaline Phosphatase 612(H) 34 - 104 U/L 07/09/2024 6:27 AM [facility] ([facility] [place] AST 64(H) 13 - 39 U/L 07/09/2024 6:27 AM [facility] ([facility] [place] ALT (SGPT) 60(H) 7 - 52 U/L 07/09/2024 6:27 AM [facility] ([facility] [place] Total Protein 4.2(L) 6.0 - 8.3 g/dL 07/09/2024 6:27 AM [facility] ([facility] [place] Albumin 2.1(L) 3.5 - 5.7 g/dL 07/09/2024 6:27 AM [facility] ([facility] [place] Blood Venous blood specimen / Unknown Venipuncture / Unknown 07/09/2024 5:04 AM EST 07/09/2024 5:50 AM EST Ovi Daigle MD LAB BLOOD ORDERABLES [facility] ([facility] [place] [address] [place] [address] * (ABNORMAL) Basic metabolic panel (07/09/2024 5:04 AM EST) Only the most recent of2 resultswithin the time period is included. Sodium 134(L) 136 - 145 mmol/L 07/09/2024 6:27 AM [facility] ([facility] [place] Potassium 3.2(L) 3.5 - 5.1 mmol/L 07/09/2024 6:27 AM [facility] ([facility] [place] Chloride 103 98 - 107 mmol/L 07/09/2024 6:27 AM EST [facility] ([facility] [place] CO2 25 21 - 31 mmol/L 07/09/2024 6:27 AM EST [facility] ([facility] [place] BUN 9 7 - 25 mg/dL 07/09/2024 6:27 AM [facility] ([facility] [place] Creatinine 0.57(L) 0.60 - 1.20 mg/dL 07/09/2024 6:27 AM [facility] ([facility] [place] Glucose 92 70 - 100 mg/dL 07/09/2024 6:27 AM [facility] ([facility] [place] Calcium 7.6(L) 8.6 - 10.3 mg/dL 07/09/2024 6:27 AM [facility] ([facility] [place] Anion Gap 9 7 - 20 mmol/L 07/09/2024 6:27 AM [facility] ([facility] [place] eGFR 91.2 >60.0 mL/min/1. 73m*2 07/09/2024 6:27 AM [facility] ([facility] [place] Comment:The [facility] s estimated glomerular filtration rate (eGFR) will no longer include consideration of race in its calculation. The [employer] s eGFR Task Force developed new recommendations for [...] disproportionately affect any one group of individuals. BUN/Creatinine Ratio 15.8 06/16 6:27 AM [facility] ([facility] [place] Blood Venous blood specimen / Unknown Venipuncture / Unknown 07/09/2024 5:04 AM EST 07/09/2024 5:50 AM EST Ovi Daigle MD LAB BLOOD ORDERABLES [facility] ([place] [address] [place] [address] * ECG 12 lead (07/08/2024 2:32 PM EST) Ventricular Rate 78 BPM GE MUSE Atrial Rate 78 BPM GE MUSE DE Interval 198 ms GE MUSE QRS DURATION 130 ms GE MUSE QT Interval 378 ms GE MUSE QTC CALCULATION(BAZE TT) 430 ms GE MUSE P [place] 50 degrees GE MUSE R-[place] -23 degrees GE MUSE T Wave [place] 80 degrees GE MUSE 07/08/2024 2:24 PM EST 07/08/2024 9:42 PM EST Impressions GE MUSE - 07/08/2024 9:42 PM EST Normal sinus rhythm with sinus arrhythmia Non-specific intra-ventricular conduction block Anterolateral infarct , age undetermined Abnormal ECG When compared with ECG of 01-JUL-2024 22:03, Premature supraventricular complexes are no longer Present Non-specific intra-ventricular conduction block has replaced Left bundle branch block Anterior infarct is now Present Anterolateral infarct is now Present Confirmed by Daylin LOBO, HUGO Alexandra ([id number]) on 07/08/2024 9:42:00 PM Narrative Procedure Note Hugo Lobo MD - 07/08/2024 IMPRESSION: Normal sinus rhythm with sinus arrhythmia Non-specific intra-ventricular conduction block Anterolateral infarct , age undetermined Abnormal ECG When compared with ECG of 01-JUL-2024 22:03, Premature supraventricular complexes are no longer Present Non-specific intra-ventricular conduction block has replaced Left bundle branch block Anterior infarct is now Present Anterolateral infarct is now Present Confirmed by Daylin LOBO, HUGO Alexandra (55) on 07/08/2024 9:42:00 PM Ovi Daigle MD ECG ORDERABLES GE MUSE * Diagnostic Colonoscopy w Biopsy (07/08/2024 12:10 PM EST) Anatomical Region Laterality Modality Endoscopy Narrative 07/08/2024 5:40 PM EST Table formatting from the original result was [...] to 1210 on 07/08/24 Attending Physician: Bradley Pope MD Optical Goods Drilling Machine Operator: Alfredo Puri MD Procedure Details: Informed consent [...] present and scrubbed for the entire procedure. Lucy Ring ROW BOSS ENDOSCOPY PROCEDURE ORDERABLES * Histology - tissue exam (07/08/2024 12:03 PM EST) Case Report Surgical Pathology Case: [id number] Authorizing Provider: Bradley Pope MD Collected: 07/08/2024 1203 Ordering Location: [address] Urology Received: 07/08/2024 7124 Pathologist: Kady Ontiveros MD Specimens: A) - Rectum, RECTUM MASS RULE OUT MALIGNANCY B) - Rectum, RECTAL MASS BIOPSY #2 07/10/2024 2:21 PM EST [facility] ([place]) Final Diagnosis A. 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 Colon, rectal mass #2, biopsy: - Tubular adenoma 07/10/2024 2:21 PM EST [facility] ([place]) Clinical Information Order Diagnoses W19.XXXA - Fall, initial encounter [ICD-10-CM] R17 - Jaundice [ICD-10-CM] E80.6 - Hyperbilirubinemia [ICD-10-CM] K92.2 - Gastrointestinal hemorrhage, unspecified gastrointestinal hemorrhage type [ICD-10-CM] R79.89 - Abnormal LFTs [ICD-10-CM] K85.90 - Acute pancreatitis, unspecified complication status, unspecified pancreatitis type [ICD-10-CM] K92.2 - GI bleed [ICD-10-CM] I10 - Primary hypertension [ICD-10-CM] K29.81 - Gastrointestinal hemorrhage associated with duodenitis [ICD-10-CM] K62.89 - Rectal mass [ICD-10-CM] 07/10/2024 2:21 PM EST [facility] ([place]) Comment Case reviewed at consensus conference with agreement of the diagnosis. 07/10/2024 2:21 PM EST [facility] ([facility] [place] Gross Description A. Rectum. Received in formalin labeled Consuelo Kumar, RECTUM MASS RULE OUT MALIGNANCY multiple castillo-brown mucosal tissue fragments measuring 4.0 x 0.9 x 0.5 cm in aggregate. The specimen is submitted entirely in one cassette. The smaller fragments may not survive tissue processing. Mira Campbell, PGY-1 B. Rectum. Received in formalin labeled Consuelo Kumar, RECTAL MASS BIOPSY #2 is 1 castillo-brown mucosal tissue fragment measuring 0.5 x 0.4 x 0.4 cm. The specimen is submitted entirely in one cassette. Mira Campbell, PGY-1 07/10/2024 2:21 PM EST [facility] ([facility] [place] Microscopic Description Microscopic examination performed. 07/10/2024 2:21 PM EST [facility] ([facility] [place] Tissue Rectum structure / Unknown 07/08/2024 12:03 PM EST 07/08/2024 2:53 PM EST Tissue specimen (specimen) Rectum structure / Unknown 07/08/2024 2:09 PM EST 07/08/2024 2:53 PM EST Comment:This piece was withi n the scope and has been through the precleaning process at the bedside, was found having fallen out of the scope prior to permanent cleaning. Bradley Pope MD LAB PATHOLOGY ORDERA PAT [facility] ([facility] [place] [address] [place] [address] from Last 3 Months Advance Directives * Full Code (Latest Code Status on File) Date Activated Date Inactivated Comments 07/02/2024 3:08 AM 07/11/2024 8:02 PM Care Teams Pump House Technician Relationship Specialty Start Date End Date Mayito Jade DO [address] [place] [address] PCP - General Internal Medicine 06/28/24 Nathalia Herman MD [address] [place] [address] Consulting Physician Hematology and Oncology 07/12/24
--- OUTSIDE RECORDS SUMMARY | 2024-10-05 22:04 | XMS_ITS | Encounter Summary ---
Author Organization [facility] Address [address] [place] [address] Care Team Providers Care Hardwood Floor Sander Name Role Phone YasmanyMayito Primary Care Provider [phone] Nathalia Herman MD Unavailable [phone] Encounter Details Date Type Department Care Team (Late st Contact Info) Description 10/03/2024 Telephone [facility] Endoscopy [address] [place] [address] Janel Hayes, RN Social History Tobacco Use Types Packs/Day Years Used Date Smoking Tobacco: Never Smokeless Tobacco: Never Alcohol Use Standard Drinks/Week Comments Not Currently 0 (1 standard drink = 0.6 oz pur e alcohol) NOTHING IN LAST 2-3 MONTH [facility] Utilities Answer Date Recorded In the past 12 months has th e electric, gas, oil, or water company threatened to shut off services in your [...] any time in the past 12 m onths, were you homeless or living in a care home (including now)? No 07/02/2024 Hunger Vital Sign [...] Heterosexual or Straight 06/15 9:20 PM EST documented as of this encounter Miscellaneous Notes * Telephone Encounter - Janel Hayes RN - 10/03/2024 11:46 AM EDT Patient is scheduled for a repeat ERCP with Dr. Bradley Pope at [facility] on November arriving at 1200 for a 1400 procedure to entrance B;PAT call scheduled for 10/16/24 in the am;case#[id number]. documented in this encounter Plan of Treatment Not on file documented as of this encounter Visit Diagnoses Not on filedocumented in this encounter Care Teams Hardwood Floor Sander Relationship Specialty Start Date End Date Mayito Jade DO [address] [facility] [place] [address] PCP - General Internal Medicine 06/28/24 Nathalia Herman MD [address] [place] [address] Consulting Physician Hematology and Oncology 07/12/24 documented as of this encounter
--- OUTSIDE RECORDS SUMMARY | 2024-10-05 22:04 | XMS_ITS | Encounter Summary ---
Author Organization [facility] Address [address] [place] [address] Care Team Providers Care Cash Van Salesperson Name Role Phone Mayito Jade DO Primary Care Provider [phone] Source Comments In the event this information is protected by the Federal Confidentiality of Alcohol and Drug AbusePatient Records regulations: The Federal rules restrict any use of the information to criminally investigate or prosecute any alcohol or drug abuse patient.[facility] Encounter Details Date Type Department Care Team (Late st Contact Info) Description 09/30/2024 Orders Only Gastroenterology [address] [facility] [place] [id number] Hugo Ramírez MD [address] [place] [address] Malignant neoplasm of liver, unspecified liver malignancy type (HCC) (Primary Dx); Liver mass Social History Tobacco Use Types Packs/Day Years Used Date Smoking Tobacco: Never Smokeless Tobacco: Never Alcohol Use Standard Drinks/Week Comments Yes 0 (1 standard drink = 0.6 oz pur e alcohol) rare Area Deprivation Index Answer Date Rafal rded National Score (1-100), lower number is lower ri sk 80 07/19/2024 State Score (1-10), lower number is lower risk 7 07/19/2024 Data from: https://www.neighborhoodatlas.medicine.[facility] Last address used for calculation [address] 07/19/2024 Comments No Sex and Gender Information Value Date Recorded Sex Assigned at Female 09/06/2024 11:05 AM EDT Legal Sex Female 9:08 AM EST Gender Identity Female 09/06/2024 11:05 AM EDT Sexual Orientation Straight 09/06/2024 11 :05 AM EDT documented as of this encounter Plan of Treatment Upcoming Encounters Date Type Department Care Team (Latest Contact Info) Description 10/14/2024 11:00 AM EDT Appointment Radio Angio [facility] [address] [place] [id number] Y[address] Romero 10/14/2024 2:00 PM EDT Office Visit Colorectal Surgery [address] [facility] [address] [place], [place] [id number] Rosanne Alegre APRN.TOOL RENTAL TECHNICIAN [address] [place] [address] post op, 2-3 wk f/up, rectal polyp 10/29/2024 2:00 PM EDT Visit (SP) Office Hematology/Oncology [address] [place] [address] Reuben Navarrete MD [address] [place] [address] Follow up after surgery- path results and discuss Tx plan Scheduled Orders Name Type Priority Associated Diagnoses Orde r Schedule IR INTERVENTIONAL RADIOLOGY CONSULT Radiology Routine Malignant neoplasm of liver, unspecified liver malignancy type (HCC) Liver mass Ordered: 09/30/2024 documented as of this encounter Visit Diagnoses Diagnosis Malignant neoplasm of liver, unspecified liver malignancy type (HCC)- Primary Liver mass Unspecified disorder of liver documented in this encounter Care Teams Cash Van Salesperson Relationship Specialty Start Date End Date Mayito Jade DO [address] [place] [address] PCP - General Internal Medicine 07/17/24 documented as of this encounter
--- OUTSIDE RECORDS SUMMARY | 2024-10-05 22:04 | XMS_ITS | Encounter Summary ---
Author Organization [facility] Address [address] [place] [address] Care Team Providers Care Sponge Packer Name Role Phone Mayito Jade Primary Care Provider [phone] Source Comments In the event this information is protected by the Federal Confidentiality of Alcohol and Drug AbusePatient Records regulations: The Federal rules restrict any use of the information to criminally investigate or prosecute any alcohol or drug abuse patient.[facility] Encounter Details Date Type Department Care Team (Latest Contact Info) Description 07/17/2024 H&P External-NonCCF Provider, External, PA-C Do not enter address information under generic External Provider. Social History Tobacco Use Types Packs/Day Years Used Date Smoking Tobacco: Never Assessed Area Deprivation Index Answer Date Rafal rded National Score (1-100), lower number is lower ri sk 80 07/19/2024 State Score (1-10), lower number is lower risk 7 07/19/2024 Data from: https://www.neighborhoodatlas.medicine.[facility].edu/. Last address used for calculation [address] 07/19/2024 Comments Unknown Sex and Gender Information Value Date Recorded Sex Assigned at Female 09/06/2024 11:05 AM EDT Legal Sex Female 9:08 AM EST Gender Identity Female 09/06/2024 11:05 AM EDT Sexual Orientation Straight 09/06/2024 11 :05 AM EDT documented as of this encounter Plan of Treatment Upcoming Encounters Date Type Department Care Team (Latest Contact Info) Description 10/14/2024 11:00 AM EDT Appointment Radio Angio [facility] [address] [place] [address] Y[address] Romero 10/14/2024 2:00 PM EDT Office Visit Colorectal Surgery [address] [facility] [address] [place], [place] [phone] Rosanne Alegre, YE.NEWS DIRECTOR [address] [place], [place] [id number] post op, 2-3 wk f/up, rectal polyp 10/29/2024 2:00 PM EDT Visit (SP) Office Hematology/Oncology [address] [place] [address] [place] [address] Reuben Navarrete MD [address] [place] [address] [place] [address] Follow up after surgery- path results and discuss Tx plan documented as of this encounter Visit Diagnoses Not on filedocumented in this encounter Care Teams Sponge Packer Relationship Specialty Start Date End Date Mayito Jade DO [address] [place] [address] PCP - General Internal Medicine 07/17/24 documented as of this encounter
--- OUTSIDE RECORDS SUMMARY | 2024-10-05 22:04 | XMS_ITS | Clinical Summary ---
Author Organization [facility] Address [address] [place] [address] Care Team Providers Care Chief Station Engineer Name Role Phone YasmanyMayito Primary Care Provider [phone] Nathalia Herman MD Unavailable [phone] Allergies Active Allergy Reactions Criticality Noted Date [...] Plan (07/02/2024 1:29 AM EST): Since on beta-conrell and history of arrhythmia IV metoprolol since [...] hours IV Protonix GI to see patient Encounters Date Type Department Care Team Description 10/03/2024 Telephone [facility] Endoscopy [address] [place] [phone] Janel Hayes, RN 09/27/2024 Telephone [facility] Endoscopy [address] [place] [phone] Janel Hayes, RN 08/21/2024 Telephone [facility] Endoscopy [address] [place] [phone] Janel Hayes, MARTI 08/13/2024 11:23 AM EDT - 08/13/2024 11:59 PM EDT Hospital Encounter [facility] X-Ray Imaging [address] [place] [address] Biliary stricture (CMS/HCC) Discharge Disposition: Home or Self Care () 08/13/2024 11:13 AM EDT Anesthesia Event [facility] Endoscopy [address] [place] [phone] Abdifatah Irwin MD Cox, Jonathan D, CAA 08/13/2024 10:15 AM EDT - 08/13/2024 11:22 AM EDT Hospital Encounter [facility] Endoscopy [address] [place] [phone] Bradley Pope MD Uberoi, Ravindera, MD Cox, Jonathan D, CAA Biliary stricture (CMS/HCC); Liver lesion Discharge Disposition: Home or Self Care () 08/13/2024 Travel 08/02/2024 Travel 07/30/2024 Telephone [facility] Endoscopy [address] [place] [phone] Janel Hayes, MARTI 07/19/2024 Orders Only [facility] Endoscopy [address] [place] [phone] Janel Hayes, RN Biliary stricture (CMS/HCC) (Primary Dx) 07/19/2024 Orders Only [facility] [address] [place] [address] Los Li MD 07/16/2024 Telephone [facility] Gastroenterology [address] [place] [address] [place] [phone] Katarina Preston LPN 07/12/2024 12:05 AM EST - 07/12/2024 11:59 PM EST Hospital Encounter [facility] Radiology External Films [address] [place] [address] Discharge Disposition: Home or Self Care (01) 07/12/2024 - 07/12/2024 12:04 AM EST Hospital Encounter [facility] Radiology External Films [address] [place] [address] Rectal mass Discharge Disposition: Home or Self Care () 07/12/2024 Orders Only [facility] On[facility] [address] [place] [phone] Sandra Gustafson MA Rectal mass (Primary Dx) 07/11/2024 Orders Only [facility] 4AB Urology [address] [place] [address] Nevin Talavera RN 07/08/2024 11:27 AM EST Anesthesia Event [facility] [place] [facility] [address] [place] [address] Roger Hernandez MD 07/08/2024 Travel 07/01/2024 9:06 PM EST - 07/11/2024 6:02 PM EST Hospital Encounter [facility] 4AB Urology [address] [place] [address] Rama Joseph PA-C Horani, Omar, MD Iqbal, [...] coli bacteremia; Urticaria Discharge Disposition: Home-Health Care [facility] [place] Last 3 Months Social History Tobacco Use Types Packs/Day Years Used Date Smoking Tobacco: Never Smokeless Tobacco: Never Tobacco Cessation:Counseling Given: Not Answered Alcohol Use Standard Drinks/Week Comments Not Currently 0 (1 standard drink = 0.6 oz pur e alcohol) NOTHING IN LAST 2-3 MONTH [facility] Utilities Answer Date Recorded In the past 12 months has th e electric, gas, oil, or water [employer] threatened to shut off services in your [...] time in the past 12 m [facility], were you homeless or living in a [...] 08/13/2024 10:24 AM EDT Plan of Treatment Health Maintenance Due Date Last Done Comments Medicare Annual Wellness (AWV) 1945 Depression Screening 1955 Adult Tetanus 1965 Zoster Vaccines (1 of 2) 1993 Pneumococcal Vaccine: 65+ Years (1 of 1 - PCV) 02/04/2008 COVID-19 Vaccine (2023-2 5 season) 2024 05/05/2021, 09/21/2020, 08/31/2020 Influenza Vaccine (Season Ended) 2025 Fall Risk Screening 07/11/2025 07/11/2024 HIB Vaccines Aged Out No longer eligi ble based on patient's age to complete this topic HPV Vaccines Aged Out No longer eligi ble based on patient's age to complete this topic IPV Vaccines Aged Out No longer eligi ble based on patient's age to complete this topic Meningococcal B Vaccine Aged Out No l onger eligible based on patient's age to complete this topic Meningococcal Vaccine Aged Out No casimiro dana eligible based on patient's age to complete this topic Rotavirus Vaccines Aged Out No longer eligible based on patient's age to complete this topic Medical Devices Implanted Type Area Sprigger Device Identifier Shelf Expiration Date Model / Serial / Lot Stent,Bili,Advan [id number] - [id number] Implanted:Qty: 1 on 06/28/2024 by Bradley Pope MD at [facility] Stent N/A: Bile Duct [employer] [id number] 02/02/2026 [id number] / / [id number] Stent,Kit,Pancre atic,[id number] - [id number] Implanted:Qty: 1 on 06/28/2024 by Bradley Pope MD at [facility] Stent N/A: Pancreas [employer]SC IMED [id number] 09/14/2025 [id number] / / [id number] Stent,Bili,Advan ix,[id number] - [id number] Implanted:Qty: 1 on 06/28/2024 by Bradley Pope MD at [facility] Stent N/A: Bile Duct [employer] [id number] 03/04/2026 [id number] / / [id number] Stent,Bili,Advan ix,[id number] - Sgtin [id number] - [id number] Implanted:Qty: 1 on 08/13/2024 by Bradley Pope MD at [facility] Stent N/A: Bile Duct [employer] [id number] 04/25/2026 [id number] / GTIN [id number] / [id number] Description:Plastic biliary stent Stent,Bili,Advan ix,[id number] - Sgtin [id number] - [id number] Implanted:Qty: 1 on 08/13/2024 by Bradley Pope MD at [facility] Stent N/A: Bile Duct [employer] [id number] 06/07/2026 [id number] / GTIN [id number] / [id number] Description:Plastic biliary stent Procedures Procedure Name Priority Date/Time Associated Diagnosis Comments FL LESS THAN 1 HOUR INTRAOPERATIVE Routine 08/13/2024 12:20 PM EDT Biliary stricture (CMS/HCC) ENDOSCOPIC RETROGRADE CHOLANGIOPANCREATOGRAPHY Routine 08/13/2024 12:17 PM EDT Biliary stricture (CMS/HCC) Liver lesion AK AN ELECTIVE ENDOTRACHEAL AIRWAY Routine 08/13/2024 11:21 [...] for ERCP for stents replacement. 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 Two plastic biliary stents, 7 Israeli by 15 cm and 7 Israeli by 12 cm, were placed up to [...] were slightly dilated. Two biliary stents, 7 Israeli by 15 cm and 7 Israeli by 12 cm, were placed up to the left intrahepatic biliary tree. Good biliary drainage was achieved. Recommendations: Clear liquid diet today, advance diet tomorrow morning if the patient is asymptomatic. Follow-up with oncology team. Repeat ERCP in 6 to 8 weeks for biliary stents replacement. Attending Attestation: I performed the procedure. Mayito Jade DO ENDOSCOPY PROCEDURE ORDERABLES * AK AN ELECTIVE ENDOTRACHEAL AIRWAY (08/13/2024 11:21 AM EDT) Narrative Issa Min CAA - 08/13/2024 11:21 AM EDT IVIS [place] 08/13/2024 11:30 AM Airway Date/Time: 08/13/2024 11:21 AM Urgency: elective Airway not difficult General Information and Staff Patient location during procedure: OR Anesthesiologist: Abdifatah Irwin MD Resident/COMPUTER ASSEMBLER/CAA: IVIS [place] Performed: resident/COMPUTER ASSEMBLER/CAA Indications and Patient Condition Indications for airway management: anesthesia Spontaneous Ventilation: absent Sedation level: deep Preoxygenated: yes Patient position: sniffing Mask difficulty assessment: 1 - vent by mask No planned trial extubation Final Airway Details Final airway type: endotracheal airway Successful airway: ETT Cuffed: yes Successful intubation technique: video laryngoscopy Facilitating devices/methods: intubating stylet Blade: [employer] Blade size: #3 ETT size (mm): 7.0 Cormack-Lehane Classification: grade I - full view of glottis Placement verified by: chest auscultation and capnometry Measured from: lips ETT to lips (cm): 21 Number of attempts at approach: 1 Abdifatah Irwin MD ANESTHESIA ORDERABLE S * POCT glucose meter (08/13/2024 10:34 AM EDT) Glucose POC 87 70 - 105 mg/dL 08/13/2024 11:02 AM EDT [facility] ([facility]) Comment:ltolles Blood Capillary blood specimen / Unknown 08/13/2024 10:34 AM EDT 08/13/2024 11:01 AM EDT Narrative [facility] ([facility]) - 08/13/2024 11:02 AM EDT Waived Testing in the ED is performed under the ED CLIA certificate #[id number]. Bradley Pope MD LAB BLOOD ORDERABLES [facility] ([facility]) [address] [place] [address] * CT transfer of outside films (07/12/2024 12:05 AM EST) Narrative IMAGING - 07/12/2024 2:31 PM EST This order has been auto-finalized and does not contain a result. Nathalia Herman MD IMG CT PROCEDURES IMAGING * XR transfer of outside films (07/12/2024 12:00 AM EST) Narrative IMAGING - 07/12/2024 2:30 PM EST This order has been auto-finalized and does not contain a result. Nathalia Herman MD IMG XR PROCEDURES IMAGING * (ABNORMAL) CBC (07/11/2024 8:19 AM EST) Only the most recent of2 resultswithin the time period is included. Auto WBC 20.05(H) 4.00 - 10.60 10*3/uL 07/11/2024 8:47 AM [facility] ([facility]) RBC 3.19(L) 3.80 - 5.00 10*6/uL 07/11/2024 8:47 AM [facility] ([facility]) Hemoglobin 9.4(L) 12.0 - 15.0 g/dL 07/11/2024 8:47 AM [facility] ([facility]) Hematocrit 29.2(L) 36.0 - 48.0 % 07/11/2024 8:47 AM [facility] ([facility]) MCV 91.5 82.0 - 98.0 fL 07/11/2024 8:47 AM [facility] ([facility]) MCH 29.5 27.0 - 33.0 pg 07/11/2024 8:47 AM [facility] ([facility]) MCHC 32.2 32.0 - 35.0 g/dL 07/11/2024 8:47 AM [facility] ([facility]) RDW 22.5(H) 11.5 - 15.0 % 07/11/2024 8:47 AM [facility] ([facility]) Platelets 460(H) 150 - 400 10*3/uL 07/11/2024 8:47 AM [facility] ([facility]) Immature Platelet Fraction % 4.9 0.8 - 6.3 % 07/11/2024 8:47 AM [facility] ([facility]) Blood Venous blood specimen / Unknown Venipuncture / Unknown 07/11/2024 8:19 AM EST 07/11/2024 8:35 AM EST Ronni Rosales MD LAB BLOOD ORDERABLES [facility] ([facility]) [address] [place] [address] * (ABNORMAL) Comprehensive metabolic panel (07/11/2024 8:19 AM EST) Only the most recent of2 resultswithin the time period is included. Sodium 135(L) 136 - 145 mmol/L 07/11/2024 9:19 AM [facility] ([facility]) Potassium 3.7 3.5 - 5.1 mmol/L 07/11/2024 9:19 AM [facility] ([facility]) Chloride 104 98 - 107 mmol/L 07/11/2024 9:19 AM [facility] ([facility]) CO2 24 21 - 31 mmol/L 07/11/2024 9:19 AM [facility] ([facility]) Anion Gap 11 7 - 20 mmol/L 07/11/2024 9:19 AM [facility] ([facility]) BUN 8 7 - 25 mg/dL 07/11/2024 9:19 AM [facility] ([facility]) Creatinine 0.58(L) 0.60 - 1.20 mg/dL 07/11/2024 9:19 AM [facility] ([facility]) BUN/Creatinine Ratio 13.8 06/16 9:19 AM [facility] ([facility]) Glucose 99 70 - 100 mg/dL 07/11/2024 9:19 AM [facility] ([facility]) Calcium 8.0(L) 8.6 - 10.3 mg/dL 07/11/2024 9:19 AM [facility] ([facility]) AST 88(H) 13 - 39 U/L 07/11/2024 9:19 AM [facility] ([facility]) ALT (SGPT) 61(H) 7 - 52 U/L 07/11/2024 9:19 AM EST [facility] ([facility]) Alkaline Phosphatase 753(H) 34 - 104 U/L 07/11/2024 9:19 AM EST [facility] ([facility]) Total Protein 4.8(L) 6.0 - 8.3 g/dL 07/11/2024 9:19 AM EST [facility] ([facility]) Albumin 2.4(L) 3.5 - 5.7 g/dL 07/11/2024 9:19 AM EST [facility] ([facility]) Total Bilirubin 5.5(H) 0.3 - 1.0 mg/dL 07/11/2024 9:19 AM EST [facility] ([facility]) eGFR 90.9 >60.0 mL/min/1. 73m*2 07/11/2024 9:19 AM [facility] ([facility]) Comment:[facility] s estimated glomerular filtration rate (eGFR) [...] EST Ronni Rosales MD LAB BLOOD ORDERABLES [facility] ([facility]) [address] [place] [address] * (ABNORMAL) CBC auto differential (07/10/2024 8:23 AM EST) Only the most recent of2 resultswithin the time period is included. Auto WBC 19.79(H) 4.00 - 10.60 10*3/uL 07/10/2024 9:03 AM [facility] ([facility]) RBC 3.36(L) 3.80 - 5.00 10*6/uL 07/10/2024 9:03 AM [facility] ([facility]) Hemoglobin 9.7(L) 12.0 - 15.0 g/dL 07/10/2024 9:[address] [facility] ([facility]) Hematocrit 30.7(L) 36.0 - 48.0 % 07/10/2024 9:03 AM [facility] ([facility]) MCV 91.4 82.0 - 98.0 fL 07/10/2024 9:[address] [facility] ([facility]) MCH 28.9 27.0 - 33.0 pg 07/10/2024 9:[address] [facility] ([facility]) MCHC 31.6(L) 32.0 - 35.0 g/dL 07/10/2024 9:[address] [facility] ([facility]) RDW 22.9(H) 11.5 - 15.0 % 07/10/2024 9:[address] [facility] ([facility]) Platelets 471(H) 150 - 400 10*3/uL 07/10/2024 9:[address] [facility] ([facility]) nRBC % 0.0 0 % 07/10/2024 9:[address] [facility] ([facility]) Immature Platelet Fraction % 5.4 0.8 - 6.3 % 07/10/2024 9:[address] [facility] ([facility]) Blood Venous blood specimen / Unknown Venipuncture / Unknown 07/10/2024 8:23 AM EST 07/10/2024 8:38 AM EST Ronni Rosales MD LAB BLOOD ORDERABLES [facility]) [address] [place] [address] * (ABNORMAL) Manual Differential (07/10/2024 8:23 AM EST) Only the most recent of2 resultswithin the time period is included. Metamyelocytes % 2.0(H) 0.0 - 0.0 % 07/10/2024 10:27 AM [facility] ([facility]) Atypical Lymphocytes % 0.0 0.0 - 0.0 % 07/10/2024 10:27 AM [facility] ([facility]) Neutrophils Absolute 13.5(H) 1.6 - 7.6 10*3/uL 07/10/2024 10:27 AM [facility] ([facility]) Lymphocytes Absolute 3.80 1.20 - 4.00 10*3/uL 07/10/2024 10:27 AM [facility] ([facility]) Monocytes Absolute 0.91 0.10 - 1.00 10*3/uL 07/10/2024 10:27 AM [facility] ([facility]) Eosinophils Absolute 1.19(H) 0.00 - 0.50 10*3/uL 07/10/2024 10:27 AM [facility] ([facility]) Basophils Absolute 0.00 0.00 - 0.20 10*3/uL 07/10/2024 10:27 AM [facility] ([facility]) Metamyelocytes Absolute 0.40(H) 0.00 10*3/uL 07/10/2024 10:27 AM [facility] ([facility]) Atypical Lymphs Absolute 0.00 0.00 10*3/uL 07/10/2024 10:27 AM [facility] ([facility]) Anisocytosis Moderate 07/10/2024 10:27 AM [facility] ([facility]) Poikilocytes Slight 07/10/2024 10:27 AM [facility] ([facility]) Polychromasia Moderate 07/10/2024 10:27 AM [facility] ([facility]) Hypochromia Slight 07/10/2024 10:27 AM [facility] ([facility]) Giant PLTs Present 07/10/2024 10:27 AM [facility] ([facility]) Neutrophils % 68.2 40.0 - 72.0 % 07/10/2024 10:27 AM [facility] ([facility]) Lymphocytes % 19.2(L) 20.0 - 45.0 % 07/10/2024 10:27 AM [facility] ([facility]) Monocytes % 4.6(L) 5.0 - 12.0 % 07/10/2024 10:27 AM EST [facility] ([facility]) Eosinophils % 6.0 0.0 - 6.0 % 07/10/2024 10:27 AM EST [facility] ([facility]) Basophils % 0.0 0.0 - 1.0 % 07/10/2024 10:27 AM EST [facility] ([facility]) Plasma Cells % 0 0 % 07/10/2024 10:27 AM EST [facility] ([facility]) Blood Venous blood specimen / Unknown Venipuncture / Unknown 07/10/2024 8:23 AM EST 07/10/2024 8:38 AM EST Ronni Rosales MD LAB BLOOD ORDERABLES [facility]) [address] [place] [address] * (ABNORMAL) Hepatic function panel (07/09/2024 5:04 AM EST) Only the most recent of2 resultswithin the time period is included. Total Bilirubin 6.0(H) 0.3 - 1.0 mg/dL 07/09/2024 6:27 AM [facility] ([facility]) Bilirubin, Direct 3.6(H) 0 - 0.2 mg/dL 07/09/2024 6:27 AM [facility] ([facility]) Alkaline Phosphatase 612(H) 34 - 104 U/L 07/09/2024 6:27 AM [facility] ([facility]) AST 64(H) 13 - 39 U/L 07/09/2024 6:27 AM [facility] ([facility]) ALT (SGPT) 60(H) 7 - 52 U/L 07/09/2024 6:[address] [facility] ([facility]) Total Protein 4.2(L) 6.0 - 8.3 g/dL 07/09/2024 6:27 AM [facility] ([facility]) Albumin 2.1(L) 3.5 - 5.7 g/dL 07/09/2024 6:27 AM [facility] ([facility]) Blood Venous blood specimen / Unknown Venipuncture / Unknown 07/09/2024 5:04 AM EST 07/09/2024 5:50 AM EST Ovi Daigle MD LAB BLOOD ORDERABLES [facility] ([facility]) [address] [place] [address] * (ABNORMAL) Basic metabolic panel (07/09/2024 5:04 AM EST) Only the most recent of2 resultswithin the time period is included. Sodium 134(L) 136 - 145 mmol/L 07/09/2024 6:27 AM [facility] ([facility]) Potassium 3.2(L) 3.5 - 5.1 mmol/L 07/09/2024 6:27 AM [facility] ([facility]) Chloride 103 98 - 107 mmol/L 07/09/2024 6:27 AM [facility] ([facility]) CO2 25 21 - 31 mmol/L 07/09/2024 6:27 AM [facility] ([facility]) BUN 9 7 - 25 mg/dL 07/09/2024 6:27 AM [facility] ([facility]) Creatinine 0.57(L) 0.60 - 1.20 mg/dL 07/09/2024 6:27 AM [facility] ([facility]) Glucose 92 70 - 100 mg/dL 07/09/2024 6:27 AM [facility] ([facility]) Calcium 7.6(L) 8.6 - 10.3 mg/dL 07/09/2024 6:27 AM [facility] ([facility]) Anion Gap 9 7 - 20 mmol/L 07/09/2024 6:27 AM [facility] ([facility]) eGFR 91.2 >60.0 mL/min/1. 73m*2 07/09/2024 6:27 AM [facility] ([facility]) Comment:[facility] s estimated glomerular filtration rate (eGFR) will [...] individuals. BUN/Creatinine Ratio 15.8 06/16 6:27 AM EST [facility]) Blood Venous blood specimen / Unknown Venipuncture / Unknown 07/09/2024 5:04 AM EST 07/09/2024 5:50 AM EST Ovi Dagile MD LAB BLOOD ORDERABLES [facility] ([facility]) [address] [place] [address] * ECG 12 lead (07/08/2024 2:32 PM EST) Ventricular Rate 78 BPM GE MUSE Atrial Rate 78 BPM GE MUSE AK Interval 198 ms GE MUSE QRS DURATION 130 ms GE MUSE QT Interval 378 ms GE MUSE QTC CALCULATION(BAZE TT) 430 ms GE MUSE P [place] 50 degrees GE MUSE R-[place] -23 degrees GE MUSE T Wave [place] 80 degrees GE MUSE 07/08/2024 2:24 PM [...] on 07/08/24 Attending Physician: Bradley Pope MD Waiter/Waitress Head: Alfredo Puri MD Procedure Details: Informed consent [...] scrubbed for the entire procedure. Lucy Ring [facility] ENDOSCOPY PROCEDURE ORDERABLES * Histology - tissue exam (07/08/2024 12:03 PM EST) Case Report Surgical Pathology Case: [id number] Authorizing Provider: Bradley Pope MD Collected: 07/08/2024 1203 Ordering Location: [address] Urology Received: 07/08/2024 5621 Pathologist: Kady Ontiveros MD Specimens: A) - Rectum, RECTUM MASS RULE OUT MALIGNANCY B) - Rectum, RECTAL MASS BIOPSY #2 07/10/2024 2:21 PM EST [facility] ([facility]) Final Diagnosis A. 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 Colon, rectal mass #2, biopsy: - Tubular adenoma 07/10/2024 2:21 PM [facility] ([facility]) Clinical Information Order Diagnoses W19.XXXA - Fall, [...] - Rectal mass [ICD-10-CM] 07/10/2024 2:21 PM [facility] ([facility]) Comment Case reviewed at consensus conference with agreement of the diagnosis. 07/10/2024 2:21 PM [facility] ([facility]) Gross Description A. Rectum. Received in formalin [...] cassette. Mira Campbell, PGY-1 07/10/2024 2:21 PM [facility] ([facility]) Microscopic Description Microscopic examination performed. 07/10/2024 2:21 PM [facility] ([facility]) Tissue Rectum structure / Unknown 07/08/2024 12:03 [...] Bradley Pope MD LAB PATHOLOGY ORDERA PAT [facility] ([facility]) [address] [place], [place] [id number] from Last 3 Months Advance Directives * Full Code (Latest Code Status on File) Date Activated Date Inactivated Comments 07/02/2024 3:08 AM 07/11/2024 8:02 PM Care Teams Chief Station Engineer Relationship Specialty Start Date End Date Mayito Jade DO [address] [place] [address] [address] PCP - General Internal Medicine 06/28/24 Nathalia Herman MD [address] [place] [phone] Consulting Physician Hematology and Oncology 07/12/24
--- OUTSIDE RECORDS SUMMARY | 2024-10-05 22:04 | XMS_ITS | Encounter Summary ---
Author Organization [facility] Address [address] [place] [address] Care Team Providers Care Urban Forester Name Role Phone YasmanyMayito Primary Care Provider [phone] Nathalia Herman MD Unavailable [phone] Encounter Details Date Type Department Care Team (Late st Contact Info) Description 09/27/2024 Telephone [facility] Endoscopy [address] [place] [address] Janel Hayes, RN Social History Tobacco Use Types Packs/Day Years Used Date Smoking Tobacco: Never Smokeless Tobacco: Never Alcohol Use Standard Drinks/Week Comments Not Currently 0 (1 standard drink = 0.6 oz pur e alcohol) NOTHING IN LAST 2-3 MONTH [facility] Utilities Answer Date Recorded In the past [...] Telephone Encounter - Janel Hayes RN - 09/27/2024 3:28 PM EDT Called patient regarding scheduling another ERCP for a stent exchange with Dr. Bradley Pope. She states she is waiting to hear back from [facility] in regards to following with there physicians. She will call me back next week to see what the plan is going forward. documented in this encounter Plan of Treatment Not on file documented as of this encounter Visit Diagnoses Not on filedocumented in this encounter Care Teams Urban Forester Relationship Specialty Start Date End Date Mayito Jade DO [address] [facility] [place] [address] PCP - General Internal Medicine 06/28/24 Nathalia Herman MD [address] [place] [phone] Consulting Physician Hematology and Oncology 07/12/24 documented as of this encounter
--- OUTSIDE RECORDS SUMMARY | 2024-10-05 22:04 | XMS_ITS | Encounter Summary ---
Author Organization [facility] Address [address] [place] [address] Care Team Providers Care Pain Coordinator Name Role Phone Mayito Jade DO Primary Care Provider [phone] Source Comments In the event this information is protected by the Federal Confidentiality of Alcohol and Drug AbusePatient Records regulations: The Federal rules restrict any use of the information to criminally investigate or prosecute any alcohol or drug abuse patient.[facility] Encounter Details Date Type Department Care Team (Late st Contact Info) Description 09/13/2024 Lab Requisition [facility] [address] [place] [address] Hugo Ramírez MD [address] [place], [place] [phone] Person encountering health services to consult on behalf of another person Social History Tobacco Use Types Packs/Day Years Used Date Smoking Tobacco: Never Smokeless Tobacco: Never Alcohol Use Standard Drinks/Week Comments Yes 0 (1 standard drink = 0.6 oz pur e alcohol) [facility] Area Deprivation Index Answer Date Rafal rded National Score (1-100), lower number is lower ri sk 80 07/19/2024 State Score (1-10), lower number is lower risk 7 07/19/2024 Data from: https://www.neighborhoodatlas.[facility]/. Last address used for calculation [address] [...] 10/14/2024 11:00 AM EDT Appointment Radio Angio [facility] [address] [place] [phone] Y-[address] Romero 10/14/2024 2:00 PM EDT Office Visit Colorectal Surgery [address] [place], [place] [phone] Rosanne Alegre APRN.SCRAP CRUSHER [address] [place], [place] [phone] post op, 2-3 wk f/up, rectal polyp 10/29/2024 2:00 PM EDT Visit (SP) Office Hematology/Oncology [address] [place] [address] Reuben Navarrete MD [address] [place] [address] Follow up after surgery- path results and discuss Tx plan documented as of this encounter Procedures Procedure Name Priority Date/Time Associated Diagnosis Comments OUTSIDE CYTOLOGY SLIDE REVIEW Routine 09/13/2024 8:12 PM EDT Person encountering health services to consult on behalf of another person OUTSIDE SURG PATH SLIDE REVIEW Routine 09/13/2024 8:05 PM EDT Person encountering health services to consult on behalf of another person documented in this encounter Results * OUTSIDE CYTOLOGY SLIDE REVIEW (09/13/2024 8:12 PM EDT) Case Report Medical Cytology Report Case: [id number] Authorizing Provider: Hugo Ramírez MD Collected: 09/13/2024 08:12 PM Ordering Location: [facility] Received: 09/13/2024 08:11 PM [facility] Pathologist: Hermelinda Nathan MD Specimens: A) - Slide(s), HEPATIC DUCT, BRUSHING, 2 OUTSIDE SLIDES, ([id number]), 06/28/2024 B) - Slide(s), LYMPH NODE, PARADUODENAL, FINE NEEDLE ASPIRATION, 5 OUTSIDE SLIDES, ([id number]), 06/28/2024 C) - Slide(s), LIVER, FINE NEEDLE ASPIRATION, 9 OUTSIDE SLIDES, ([id number]), 06/28/2024 09/20/2024 10:34 AM EDT [facility] FINAL DIAGNOSIS A - Slide(s) - HEPATIC DUCT, BRUSHING, 2 OUTSIDE SLIDES, ([id number]), 06/28/2024 Atypical cells present. B - Slide(s) - LYMPH NODE, PARADUODENAL, FINE NEEDLE ASPIRATION, 5 OUTSIDE SLIDES, ([id number]), 06/28/2024 Atypical cells present. C - Slide(s) - LIVER, FINE NEEDLE ASPIRATION, 9 OUTSIDE SLIDES, ([id number]), 06/28/2024 Neoplastic cells present. See comment. 09/20/2024 10:34 AM EDT [facility] at 1034 EDT Diagnosis Comment C. See surgical pathology report [id number] for additional information including results of immunohistochemical stains. Dr. Alcides Gaona has reviewed this case and agrees with the above interpretation. 09/20/2024 10:34 AM EDT [facility] Performing Lab Technical component, business systems advisor screening performed at: [facility], [address] [place] [address] CLIA: [id number] Diagnostic interpretation performed at: [facility], [address] [place] [address] CLIA# [id number] [employer] Professor: Nilson Galvez MD 09/20/2024 10:34 AM EDT [facility] Disclaimer Laboratory Developed Test (LDT) Disclaimer: Performance characteristics of immunohistochemical, immunofluorescent, and chromogenic in-situ hybridization tests have been determined by the performing laboratory within [facility]'s [facility] Pathology and Laboratory Medicine Department ([facility], [facility], [facility], [facility], [facility], [facility], or [facility]) in a manner consistent with CLIA requirements. One or more of these tests may not have been cleared or approved by the FDA. [facility] is regulated under CLIA as qualified to perform high-complexity testing. These tests are used for clinical purposes. These should not be regarded as investigational or for research. Positive and negative controls stain appropriately. 09/20/2024 10:34 AM EDT [facility] Blocks or Slides MICROSCOPE SLIDE / Unknown 09/13/2024 8:12 PM EDT 09/13/2024 8:11 PM EDT Formalin-fixed paraffin-embedde d tissue specimen (specimen) MICROSCOPE SLIDE / Unknown 09/13/2024 8:12 PM EDT 09/13/2024 8:17 PM EDT Formalin-fixed paraffin-embedde d tissue specimen (specimen) MICROSCOPE SLIDE / Unknown 09/13/2024 8:12 PM EDT 09/13/2024 8:17 PM EDT us Hugo Ramírez MD CYTOLOGY Final Result [facility] [address] [place] [address], * OUTSIDE SURG PATH SLIDE REVIEW (09/13/2024 8:05 PM EDT) Case Report Surgical Pathology Report Case: [id number] Authorizing Provider: Hugo Ramírez MD Collected: 09/13/2024 08:05 PM Ordering Location: [facility] Received: 09/13/2024 08:05 PM [facility] Pathologist: Sharri Goff MD Specimen: Slide(s), 6 SLIDES [id number] 09/23/2024 10:16 AM EDT [facility] FINAL DIAGNOSIS [facility], [place], [place]; [phone] (06/28/2024) A. 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 09/23/2024 10:16 AM EDT [facility] at 1016 EDT Diagnosis Comment Immunohistochemical stains were performed at [facility] on outside block [id number] (A1) and show that the tumor cells are positive for MOC-31 and CK AE1/AE3, while negative for synaptophysin and INSM1. The Ki-67 proliferation index is high. The overall morphologic and immunophenotypic findings seen on part a are compatible with adenocarcinoma. There are fragments of a detached tubular component. Part A was reviewed with Dr. Gaitan and Dr. Norris, who concur. 09/23/2024 10:16 AM EDT [facility] Performing Lab Diagnostic interpretation performed at: [facility], [address] [place] [address] CLIA# [id number] [employer] Professor: Nilson Galvez MD 09/23/2024 10:16 AM EDT [facility] Disclaimer Laboratory Developed Test (LDT) Disclaimer: Performance characteristics of immunohistochemical, immunofluorescent, and chromogenic in-situ hybridization tests have been determined by the performing laboratory within [facility]'s [facility] Pathology and Laboratory Medicine Department ([facility], [facility], [facility], [facility], [facility], [facility], or [facility]) in a manner consistent with CLIA requirements. One or more of these tests may not have been cleared or approved by the FDA. RT-PLM is regulated under CLIA as qualified to perform high-complexity testing. These tests are used for clinical purposes. These should not be regarded as investigational or for research. Positive and negative controls stain appropriately. 09/23/2024 10:16 AM EDT [facility] Blocks or Slides MICROSCOPE SLIDE / Unknown 09/13/2024 8:05 PM EDT 09/13/2024 8:05 PM EDT us Hugo Ramírez MD SURGICAL PATHOLOGY Final Res ult [facility] [address] [place] [address], documented in this encounter Visit Diagnoses Diagnosis Person encountering health services to consult on behalf of another person Other person consulting on behalf of another person documented in this encounter Care Teams Pain Coordinator Relationship Specialty Start Date End Date Mayito Jade DO [address] [phone] PCP - General Internal Medicine 07/17/24 documented as of this encounter
--- OUTSIDE RECORDS SUMMARY | 2024-10-05 22:05 | XMS_ITS | Encounter Summary ---
Author Organization [facility] Address [address] [place] [address] Care Team Providers Care Cruise Director Name Role Phone Mayito Jade Primary Care Provider [phone] Source Comments In the event this information is protected by the Federal Confidentiality of Alcohol and Drug AbusePatient Records regulations: The Federal rules restrict any use of the information to criminally investigate or prosecute any alcohol or drug abuse patient.[facility] Encounter Details Date Type Department Care Team (Late st Contact Info) Description 09/26/2024 Telephone Colorectal Surgery [address] [place] [address] [place] [address] [place], [place] [phone] Social History Tobacco Use Types Packs/Day Years Used Date Smoking Tobacco: Never Smokeless Tobacco: Never Alcohol Use Standard Drinks/Week Comments Yes 0 (1 standard drink = 0.6 oz pur e alcohol) [facility] Area Deprivation Index Answer Date Rafal rded National Score (1-100), lower number is lower ri sk 80 07/19/2024 State Score (1-10), lower number is lower risk 7 07/19/2024 Data from: https://www.neighborhoodatlas.medicine.[facility]/. Last address used for calculation [address] 07/19/2024 Comments No Sex and Gender Information Value Date Recorded Sex Assigned at Female 09/06/2024 11:05 AM EDT Legal Sex Female 9:08 AM EST Gender Identity Female 09/06/2024 11:05 AM EDT Sexual Orientation Straight 09/06/2024 11 :05 AM EDT documented as of this encounter Miscellaneous Notes * Telephone Encounter - Angelic Duarte MD - 09/26/2024 12:29 PM EDT Path reviewed with patient- no evidence of rectal cancer. She will follow up with [facility] for next steps documented in this encounter Plan of Treatment Upcoming Encounters Date Type Department Care Team (Latest Contact Info) Description 10/14/2024 11:00 AM EDT Appointment Radio Angio [facility] [address] [phone] Y-[address] Romero 10/14/2024 2:00 PM EDT Office Visit [facility] [address] [facility] [address] [place], [place] [phone] Rosanne Alegre APRN.HISTORIC PRESERVATIONIST [address] [place] [address] post op, 2-3 wk f/up, rectal polyp 10/29/2024 2:00 PM EDT Visit (SP) Office Hematology/Oncology [address] [place] [address] [place] [address] Reuben Navarrete MD [address] [place] [address] [place] [address] Follow up after surgery- path results and discuss Tx plan documented as of this encounter Visit Diagnoses Not on filedocumented in this encounter Care Teams Cruise Director Relationship Specialty Start Date End Date Mayito Jade DO [address] [place] [address] PCP - General Internal Medicine 07/17/24 documented as of this encounter
--- OUTSIDE RECORDS SUMMARY | 2024-10-05 22:05 | XMS_ITS | Clinical Summary ---
Author Organization [facility] Address [address] [place] [address] Care Team Providers Care It Software Engineer Name Role Phone Mayito Jade Primary Care Provider [phone] Allergies Active Allergy Reactions Criticality Noted Date Comments Penicillins Hives Medium 06/28/2024 Sulfadiazine Hives Medium 06/28/2024 Medications diazePAM (VALIUM) 2 mg tablet Take 2 mg by mouth every 6 hours as needed. Active hydrocortisone 2.5 % cream 4 Active losartan (COZAAR) 25 mg tablet Take 25 mg by mouth. Active metoprolol tartrate, short acting, (LOPRESSOR) 25 mg tablet Take 12.5 mg by mouth two times a day. 5 10/11/19 25 Active ondansetron (ZOFRAN) 8 mg tablet Take 1 tablet by mouth every 8 hours as needed for nausea/vom iting for up to 180 doses. 90 tablet [address] (PROTONIX) 40 mg tablet Take 40 mg by mouth. 5 09/13/19 25 Discontinued oxyCODONE IR (ROXICODONE) 5 mg immediate release tabletIndicatio ns:Post-op pain Take 1 tablet by mouth every 6 hours as needed for pain for up to 7 days. 20 tablet 5 09/28/19 25 ciprofloxacin HCl (CIPRO) 500 mg tablet Take 1 tablet by mouth two times a day for 7 days. 14 tablet 5 09/28/19 25 metroNIDAZOLE (FLAGYL) 500 mg tablet Take 1 tablet by mouth three times a day for 7 days. 21 tablet 09/28/19 25 Active Problems Problem Noted Date Diagnosed Date PVC's (premature ventricular contractions) 09/12 Assessment & Plan (09/12/2024 4:06 PM EDT): Assessment: Premature supraventricular complexes noted on ECG in Care Everywhere 07/01/24. Occasional ectopic beats on exam today. On metoprolol. Managed by PCP. 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 ANDRES (generalized anxiety disorder) Assessment & Plan (09/12/2024 4:10 PM EDT): Assessment: Stable, sx managed on Valium PRN. Hypertension Assessment & Plan (09/12/2024 4:05 PM EDT): Assessment: Controlled on current medication regimen, BP today 133/72. Last 14 BP Last 14 Encounter BP Readings: Date: BP: 09/12/2024 133/72 09/09/2024 166/78[did not take medicaiton today[ 09/05/2024 162/88 07/19/2024 146/81 LBBB (left bundle branch block) Assessment & Plan (09/12/2024 4:05 PM EDT): Assessment: Since age 38 per pt. Anemia Assessment & Plan (09/12/2024 4:09 PM EDT): Images from the original note were not included. Assessment: Has improved compared to CBC 07/10/24. Latest Ref Rng & Units 07/19/2024 CBC WBC 3.70 - 11.00 [...] Lymph 1.00 - 4.00 k/uL 4.76 Abs Frontier <0.87 k/uL 1.32 Abs Eosin <0.46 k/uL 0.44 Abs Baso <0.11 k/uL 0.15 NRBC /100 WBC 0.0 Encounters Date Type Department Care Team Description 09/30/2024 Orders Only Gastroenterology [address] [id number] Hugo Ramírez MD Malignant neoplasm of liver, unspecified liver malignancy type (HCC) (Primary Dx); Liver mass 09/26/2024 Telephone Colorectal Surgery [facility] [address] [id number] Angelic Duarte MD 09/20/2024 3:09 PM EDT Anesthesia Event [facility] Operating Room [address] [place], [place] [id number] Get Garcia MD Hayes, Erika, PILAR 09/20/2024 1:50 PM EDT - 09/20/2024 3:30 PM EDT Surgery [facility] Operating Room [address] [place] [address] Angelic Duarte MD EXCISE RECTAL TUMOR VIA TRANSANAL APPROACH 09/20/2024 11:54 AM EDT - 09/20/2024 6:47 PM EDT Hospital Encounter [facility] Operating Room [address] [place], [place] [phone] Angelic Duarte MD Rectal polyp [K62.1] Discharge Disposition: Home 09/20/2024 Travel 09/13/2024 Lab Requisition [facility] [address] [place] [address] Hugo Ramírez MD Person encountering health services to consult on behalf of another person 09/12/2024 3:10 PM EDT PAT Pre Anesthesia [address] [phone] [facility] examination (Primary Dx); ANDRES (generalized anxiety disorder); Primary hypertension; LBBB (left bundle branch block); Anemia, unspecified type; PVC's (premature ventricular contractions); 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 (HCC) 09/12/2024 8:10 AM EDT Tumor Board [facility] [address] [place] [address] Liver Cancer 09/12/2024 Travel 09/11/2024 Telephone [facility] [address] [place] [address] Angelic Duarte MD Patient Question 09/09/2024 2:00 PM EDT Office Visit General Surgery [address] [address] Hugo Ramírez MD Malignant neoplasm of liver, unspecified liver malignancy type (HCC) 09/09/2024 Orders Only General Surgery [address] [address] Hugo Ramírez MD Malignant neoplasm of liver, unspecified liver malignancy type (HCC) (Primary Dx) 09/06/2024 Education Colorectal Surgery [address] [facility] [address] [facility] [address] [place] [address] Siobhan Ruano RN Rectal polyp 09/06/2024 Telephone Colorectal Surgery [facility] [address] [place] [address] Angelic Duarte MD 09/05/2024 1:20 PM EDT Office Visit Colorectal Surgery [address] [facility] [address] [place] [address] Angelic Duarte MD Rectal mass (Primary Dx); 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 Orders Only General Surgery [address] [facility] [address] [place] [address] Angelic Duarte MD Rectal polyp (Primary Dx) 09/04/2024 Orders Only General Surgery [address] [address] Hugo Ramírez MD 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 (HCC) (Primary Dx) 08/26/2024 Telephone [facility] [address] [place] [address] Reuben Navarrete MD Results 08/22/2024 4:40 PM EDT [facility] Hematology/Oncol ogy [address] [place] [address] [place] [address] Reuben Navarrete MD Cholangiocarcinoma of biliary tract (HCC) (Primary Dx); Rectal mass; Malignant obstructive jaundice (HCC); 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 (HCC) 08/22/2024 Travel 08/20/2024 Telephone Hematology/Oncol ogy [address] [place] [address] [place] [address] Holli Alexis, MARTI Patient Update (Nausea) 08/19/2024 Telephone Hematology/Oncol ogy [address] [place] [address] [place] [address] Holli Alexis, RN Orders ([facility]) 08/19/2024 Telephone Hematology/Oncol ogy [address] [facility] [place] [address] Yvrose Alcazar, MARTI Nausea/loss of appetite 08/05/2024 Telephone [facility] [address] [place] [address] Reuben Navarrete MD 08/01/2024 4:40 PM EDT [facility] Hematology/Oncol ogy [address] [place] [address] [place] [address] Reuben Navarrete MD 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 (HCC) (Primary Dx); Rectal mass; Mass of spine; Malignant obstructive jaundice (HCC) 08/01/2024 7:55 AM EDT Tumor Board Tumor Board [address] [place] [address] Established Patient 07/23/2024 11:14 AM EDT - 07/23/2024 11:59 PM EDT Hospital Encounter Radiology Pet CT [address] [facility] [place] [address] Cholangiocarcinoma of biliary tract (HCC) [C22.1] Discharge Disposition: Home 07/22/2024 Telephone Hematology/Oncol ogy [address] [place] [address] [place] [address] Cande Espitia RN Orders 07/19/2024 4:00 PM EST Visit (SP) Office Hematology/Oncol ogy [address] [facility] [place] [address] Reuben Navarrete MD Cholangiocarcinoma of biliary tract (HCC) (Primary Dx); Other specified abnormal findings of blood chemistry 07/19/2024 Travel 07/18/2024 Abstract Hematology/Oncol ogy [address] [place] [address] [place] [address] Reuben Navarrete MD 07/17/2024 H&P External-NonCCF Provider, External, ILA from Last 3 Months Family History Medical History Relation Comments Heart disease Father No Known Problems Maternal Grandfather No Known Problems Maternal Grandmother Melanoma Mother Diabetes Paternal Grandmother No Known Problems Sister Coronary Artery Disease Son 1 Diabetes Son 1 type 1 Hypertension Son 1 Coronary Artery Disease Son 2 Diabetes Son 2 type 2 Hypertension Son 2 Anesthesia Problems No Family History Relation Status Comments Father Maternal Grandfather Maternal Grandmother Mother Paternal Grandmother Sister Son 1 Alive Son 2 Alive Social History Tobacco Use Types Packs/Day Years Used Date Smoking Tobacco: Never Smokeless Tobacco: Never Alcohol Use Standard Drinks/Week Comments Yes 0 (1 standard drink = 0.6 oz pur e alcohol) [facility] Area Deprivation Index Answer Date Rafal rded National Score (1-100), lower number is lower ri sk 80 07/19/2024 State Score (1-10), lower number is lower risk 7 07/19/2024 Data from: https://www.neighborhoodatlas.medicine.[facility].edu/. Last address used for calculation Javier DIMITRIS LANZA 07/19/2024 Comments No Sex and Gender Information Value Date Recorded Sex Assigned at Female 09/06/2024 11:05 AM EDT Legal Sex Female 9:08 AM EST Gender Identity Female 09/06/2024 11:05 AM EDT Sexual Orientation Straight 09/06/2024 11 :05 AM EDT Last Filed Vital Signs Vital Sign Reading Time Taken Comments Blood Pressure 159/87 09/20/2024 6:00 PM EDT Pulse 72 09/20/2024 6:00 PM EDT Temperature 36 C (96.8 F) 09/20/2024 6:00 PM EDT Respiratory Rate 18 09/20/2024 6:00 PM EDT Oxygen Saturation 98% 09/20/2024 6:00 PM EDT Inhaled Oxygen Concentration - - Weight 60.1 kg (132 lb 8 oz) 09/12/2024 3:28 PM EDT Height 162.6 cm (5' 4 ) 09/12/2024 3:28 PM EDT Body Mass Index 22.74 09/12/2024 3:28 PM EDT Plan of Treatment Upcoming Encounters Date Type Department Care Team (Latest Contact Info) Description 10/14/2024 11:00 AM EDT Appointment Radio Angio [facility] [address] [place] [address] Y-[address] Romero 10/14/2024 2:00 PM EDT Office Visit Colorectal Surgery [address] [place], [place] [phone] Rosanne Alegre, YE.BURNING MACHINE OPERATOR [address] [place] [address] post op, 2-3 wk f/up, rectal polyp 10/29/2024 2:00 PM EDT Visit (SP) Office Hematology/Oncology [address] [place] [address] [place] [address] Reuben Navarrete MD [address] [facility] [place] [address] Follow up after surgery- path results and discuss Tx plan Health Maintenance Due Date Last Done Comments Depression Screening 1961 DTaP,Tdap,Td Vaccine (1 - Tdap) 1962 Pneumococcal Vaccine: 50+ (1 of 1 - PCV) 1993 Shingrix Vaccine (1 of 2) 1993 Bone Density Screening 02/04/2008 RSV Vaccine (1 - 1-dose 75+ series) 2018 Covid-19 Vaccine (4 - 2023-2 5 season) 2024 05/05/2021, 09/21/2020, 08/31/2020 Advance Directive Discussion 05/15/2024 Influenza Vaccine (Season Ended) 2025 Diabetes Screening 09/13/2027 09/12/2024, 0 07/19/2024, 07/11/2024, Additional history exists Procedures Procedure Name Priority Date/Time Associated Diagnosis Comments SURGICAL PATHOLOGY Routine 09/20/2024 3: 54 PM EDT Rectal polyp INTUBATION Routine 09/20/2024 3:15 PM EDT SIGMOIDOSCOPY FLX DX W/COLLJ SPEC BR/WA IF PFRMD 09/20/2024 2:48 PM EDT Rectal polyp EXC RCT SHABANA NOT INCL MUSCULARIS PROPRIA 09/20/2024 2:48 PM EDT Rectal polyp OUTSIDE CYTOLOGY SLIDE REVIEW Routine 09/13/2024 8:12 PM EDT Person encountering health services to consult on behalf of another person OUTSIDE SURG PATH SLIDE REVIEW Routine 09/13/2024 8:05 PM EDT Person encountering health services to consult on behalf of another person EXTERNAL IMAGING 09/13/2024 9:37 AM EDT COMPREHENSIVE METABOLIC PANEL Routine 09/12/2024 4:14 PM EDT 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 (HCC) CBC + DIFF Routine 09/12/2024 4:14 PM EDT 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 (HCC) EXTERNAL IMAGING 09/03/2024 7:51 AM EDT MRI OUTSIDE CD DICOM IMPORT 08/27/2024 PT ED PATIENT INFORMATION 08/22/2024 EXTERNAL IMAGING 08/19/2024 11:16 AM EDT EXTERNAL LAB 08/12/2024 4:00 PM EDT EXTERNAL LAB 08/09/2024 8:49 AM EDT NM PET/CT SKULL-THIGH INITIAL Routine 07/23/2024 1:22 PM EDT Cholangiocarcinoma of biliary tract (HCC) Other specified abnormal findings of blood chemistry GLUCOSE, BLOOD (POC) Routine 07/23/2024 11:23 AM EDT [facility] Routine 11:16 AM EDT Cholangiocarcinoma (HCC) CA 19-9 BLD Routine 07/19/2024 4:03 PM EST Cholangiocarcinoma of biliary tract (HCC) COMPREHENSIVE METABOLIC PANEL Routine 07/19/2024 4:03 PM EST Cholangiocarcinoma of biliary tract (HCC) CBC + DIFF Routine 07/19/2024 4:03 PM EST Cholangiocarcinoma of biliary tract (HCC) CEA BLD Routine 07/19/2024 4:03 PM EST Cholangiocarcinoma of biliary tract (HCC) Other specified abnormal findings of blood chemistry EXTERNAL IMAGING 07/17/2024 2:39 PM EST EXTERNAL LAB 07/17/2024 2:39 PM EST EXTERNAL LAB 07/17/2024 2:39 PM EST EXTERNAL LAB 07/17/2024 2:39 PM EST EXTERNAL IMAGING 07/17/2024 2:39 PM EST from Last 3 Months Results * SURGICAL PATHOLOGY (09/20/2024 3:54 PM EDT) Case Report Surgical Pathology Report Case: [id number] Authorizing Provider: Angelic Duarte MD Collected: 09/20/2024 03:54 PM Ordering Location: [facility] Received: 09/23/2024 07:07 AM Operating Room Pathologist: Golden Pemberton MD Specimen: Colon, Rectum, Resection, rectal mass 09/25/2024 10:49 AM EDT [facility] FINAL DIAGNOSIS Rectal mass, transanal excision: - 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 JEL 09/25/2024 09/[facility] Diagnosis Comment There is no evidence of invasive adenocarcinoma. 09/25/2024 10:49 AM EDT [facility] Gross Description A. Colon, Rectum, Resection Received in formalin designated rectal mass are multiple fragments of castillo cobblestone to villous mucosal covered tissue aggregating to 8.8 x 4.8 x 2 cm. A definitive line of resection cannot grossly be determined. The larger segments are serially sectioned, and the specimen is totally submitted in 26 cassettes. BF September 23, 2024 8:40 AM Gross examination performed at [facility], [address] [place] [address] 09/25/2024 10:49 AM EDT [facility] Clinical History Pre-op diagnosis: Rectal polyp [K62.1] 09/25/2024 10:49 AM [facility] Performing Lab Diagnostic interpretation performed at: [facility], [address] [place], [place] [address]IA# [id number] Press Reader: Andrea Campbell MD 09/25/2024 10:49 AM [facility] Disclaimer Laboratory Developed Test (LDT) Disclaimer: Performance characteristics of immunohistochemica l, immunofluorescent, and chromogenic in-situ hybridization tests have been determined by the performing laboratory within [facility]'s [facility] Pathology and Laboratory Medicine Department ([facility], [facility], [facility], [facility], [facility], [facility], or [facility]) in a manner consistent with CLIA requirements. One or more of these tests may not have been cleared or approved by the FDA. RT-PLM is regulated under CLIA as qualified to perform high-complexity testing. These tests are used for clinical purposes. These should not be regarded as investigational or for research. Positive and negative controls stain appropriately. 09/25/2024 10:49 AM EDT [facility] Tissue RESECTION OF RECTUM / Unknown 09/20/2024 3:54 PM EDT 09/23/2024 7:07 AM EDT Comment:Pre-op diagnosis: Rectal polyp [K62.1] Angelic Duarte MD SURGICAL PATHOLOGY Final Res ult [facility] [address] [place] [address], * Airway (09/20/2024 3:15 PM EDT) Narrative Lynda Morales AA - 09/20/2024 3:15 PM EDT Lynda Morales AA 09/20/2024 3:27 PM Airway General Information Procedure Start Time/Medication Administration: [...] 4 Seal Adequate: yes Airway not difficult Hubert Alvarez DO ANESTHESIA ORDERABLES Final Resu lt * OUTSIDE CYTOLOGY SLIDE REVIEW (09/13/2024 8:12 PM EDT) Case Report Medical Cytology Report Case: [id number] Authorizing Provider: Hugo Ramírez MD Collected: 09/13/2024 08:12 PM Ordering Location: [facility] Main Received: 09/13/2024 08:11 PM [facility] Pathologist: Hermelinda Nathan MD Specimens: A) - Slide(s), HEPATIC DUCT, BRUSHING, 2 OUTSIDE SLIDES, ([id number]), 06/28/2024 B) - Slide(s), LYMPH NODE, PARADUODENAL, FINE NEEDLE ASPIRATION, 5 OUTSIDE SLIDES, ([id number]), 06/28/2024 C) - Slide(s), LIVER, FINE NEEDLE ASPIRATION, 9 OUTSIDE SLIDES, ([id number]), 06/28/2024 09/20/2024 10:34 AM EDT [facility] FINAL DIAGNOSIS A - Slide(s) - HEPATIC DUCT, BRUSHING, 2 OUTSIDE SLIDES, ([id number]), 06/28/2024 Atypical cells present. B - Slide(s) - LYMPH NODE, PARADUODENAL, FINE NEEDLE ASPIRATION, 5 OUTSIDE SLIDES, ([id number]), 06/28/2024 Atypical cells present. C - Slide(s) - LIVER, FINE NEEDLE ASPIRATION, 9 OUTSIDE SLIDES, ([id number]), 06/28/2024 Neoplastic cells present. See comment. 09/20/2024 10:34 AM EDT [facility] at 1034 EDT Diagnosis Comment C. See surgical pathology report [id number] for additional information including results of immunohistochemical stains. Dr. Alcides Gaona has reviewed this case and agrees with the above interpretation. 09/20/2024 10:34 AM EDT [facility] Performing Lab Technical component, flooring grader screening performed at: [facility], [address] [place] [address] CLIA: [id number] Diagnostic interpretation performed at: [facility], [address] [place] [address] CLIA# [id number] Press Reader: Nilson Galvez MD 09/20/2024 10:34 AM EDT [facility] Disclaimer Laboratory Developed Test (LDT) Disclaimer: Performance characteristics of immunohistochemical, immunofluorescent, and chromogenic in-situ hybridization tests have been determined by the performing laboratory within [facility]'s [facility] Pathology and Laboratory Medicine Department ([facility], [facility], [facility], [facility], [facility], [facility], or [facility]) in a manner consistent with CLIA requirements. One or more of these tests may not have been cleared or approved by the FDA. RT-PLM is regulated under CLIA as qualified to perform high-complexity testing. These tests are used for clinical purposes. These should not be regarded as investigational or for research. Positive and negative controls stain appropriately. 09/20/2024 10:34 AM EDT [facility] Blocks or Slides MICROSCOPE SLIDE / Unknown 09/13/2024 8:12 PM EDT 09/13/2024 8:11 PM EDT Formalin-fixed paraffin-embedde d tissue specimen (specimen) MICROSCOPE SLIDE / Unknown 09/13/2024 8:12 PM EDT 09/13/2024 8:17 PM EDT Formalin-fixed paraffin-embedde d tissue specimen (specimen) MICROSCOPE SLIDE / Unknown 09/13/2024 8:12 PM EDT 09/13/2024 8:17 PM EDT us Hugo Ramírez MD CYTOLOGY Final Result [facility] [place] [address], [place] * OUTSIDE SURG PATH SLIDE REVIEW (09/13/2024 8:05 PM EDT) Case Report Surgical Pathology Report Case: [id number] Authorizing Provider: Hugo Ramírez MD Collected: 09/13/2024 08:05 PM Ordering Location: [facility] Received: 09/13/2024 08:05 PM [facility] Pathologist: Sharri Goff MD Specimen: Slide(s), 6 SLIDES [id number] 09/23/2024 10:16 AM EDT [facility] FINAL DIAGNOSIS [facility] [place], [place]; S20 [phone] (06/28/2024) A. 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 09/23/2024 10:16 AM EDT [facility] at 1016 EDT Diagnosis Comment Immunohistochemical stains were performed at [facility] on outside block [id number] (A1) and show that the tumor cells [...] Norris, who concur. 09/23/2024 10:16 AM EDT [facility] Performing Lab Diagnostic interpretation performed at: [facility], [address] [place] [address], [place] [address] CLIA# [id number] Press Reader: Nilson Galvez MD 09/23/2024 10:16 AM EDT [facility] Disclaimer Laboratory Developed Test (LDT) Disclaimer: Performance characteristics of immunohistochemical, immunofluorescent, and chromogenic in-situ hybridization tests have been determined by the performing laboratory within [facility]'s [facility] Pathology and Laboratory Medicine Department ([facility], [facility], [facility], [facility], [facility], [facility], or [facility]) in a manner consistent with CLIA requirements. One or more of these tests may not have been cleared or approved by the FDA. RT-PLM is regulated under CLIA as qualified to perform high-complexity testing. These tests are used for clinical purposes. These should not be regarded as investigational or for research. Positive and negative controls stain appropriately. 09/23/2024 10:16 AM EDT [facility] Blocks or Slides MICROSCOPE SLIDE / Unknown 09/13/2024 8:05 PM EDT 09/13/2024 8:05 PM EDT us Hugo Ramírez MD SURGICAL PATHOLOGY Final Res ult [facility] [address] [place] [address], [place] * EXTERNAL IMAGING (09/13/2024 9:37 AM EDT) Anatomical Region Laterality Modality Other us External Provider PA-C RADIOLOGY Final Res ult * (ABNORMAL) COMPREHENSIVE METABOLIC PANEL (09/12/2024 4:14 PM EDT) Only the most recent of2 resultswithin the time period is included. Pathologist [facility] Protein, Total 7.7 6.3 - 8.0 g/dL 09/13/2024 3:08 PM T [facility] Albumin 3.7(L) 3.9 - 4.9 g/dL 09/13/2024 3:08 PM T [facility] Calcium, Total 10.2 8.5 - 10.2 mg/dL 09/13/2024 3:08 PM T [facility] Bilirubin, Total 0.9 0.2 - 1.3 mg/dL 09/13/2024 3:08 PM [facility] Alkaline Phosphatase 844(H) 34 - 123 U/L 09/13/2024 3:08 PM [facility] AST 91(H) 13 - 35 U/L 09/13/2024 3:08 PM T [facility] ALT 71(H) 7 - 38 U/L 09/13/2024 3:08 PM [facility] Glucose 78 74 - 99 mg/dL 09/13/2024 3:08 PM [facility] Comment: The [employer] Diabetes Association (ADA) provides guidance for cutoff [...] Standards of Medical Care in Diabetes 2016, British Diabetes Association. Diabetes Care. 2016.39(Suppl 1). BUN 14 7 - 21 mg/dL 09/13/2024 3:08 PM [facility] Creatinine 0.70 0.58 - 0.96 mg/dL 09/13/2024 3:08 PM [facility] Sodium 134(L) 136 - 144 mmol/L 09/13/2024 3:08 PM EDT [facility] Potassium 4.6 3.7 - 5.1 mmol/L 09/13/2024 3:08 PM EDT [facility] Chloride 98 98 - 107 mmol/L 09/13/2024 3:08 PM EDT [facility] CO2 25 22 - 30 mmol/L 09/13/2024 3:08 PM EDT [facility] Anion Gap 11 8 - 15 mmol/L 09/13/2024 3:08 PM EDT [facility] Estimated Glomerular Filtration Rate 87 >=60 mL/min/1.7 3m 09/13/2024 3:08 PM EDT [facility] Comment:Estimated Glomerular Filtration Rate (eGFR) is calculated using the 2020 CKD-EPI creatinine equation. This equation utilizes serum creatinine, sex, and age as parameters. The creatinine assay has traceable calibration to isotope dilution- mass spectrometry. Refer to KDIGO guidelines for clinical interpretation. In patients with unstable renal function, e.g. those with acute kidney injury, the eGFR may not accurately reflect actual GFR. Blood BLOOD SPECIMEN / Unknown Venipuncture / Unknown 09/12/2024 4:14 PM EDT 09/12/2024 4:14 PM EDT us Reuben Navarrete MD LABORATORY Final Result [facility] [address] [place] [address], * (ABNORMAL) COMPLETE BLOOD COUNT AND DIFFERENTIAL (09/12/2024 4:14 PM EDT) Only the most recent of2 resultswithin the time period is included. WBC 17.06(H) 3.70 - 11.00 k/uL 09/13/2024 5:54 AM EDT [facility] RBC 5.50(H) 3.90 - 5.20 m/uL 09/13/2024 5:54 AM EDT [facility] [facility] Hemoglobin 15.1 11.5 - 15.5 g/dL 09/13[facility]2024 5:[facility] Hematocrit 48.1(H) 36.0 - 46.0 % 09/13/2024 5:54 AM EDT [facility] MCV 87.5 80.0 - 100.0 fL 09/13/2024 5:[facility] MCH 27.5 26.0 - 34.0 pg 09/13/2024 5:54 AM EDT [facility] MCHC 31.4 30.5 - 36.0 g/dL 09/13/2024 5:54 AM [facility] RDW-CV 13.2 11.5 - 15.0 % 09/13/2024 5:54 AM [facility] Platelet Count 443(H) 150 - 400 k/uL 09/13/2024 5:54 AM [facility] MPV 12.3 9.0 - 12.7 fL 09/13/2024 5:54 AM [facility] NRBC 0.0 /100 WBC 09/13/2024 5:54 AM [facility] Absolute nRBC <0.01 <0.01 k/uL 09/13/2024 5:54 AM [facility] Neutrophils % 62.0 % 09/13/2024 5:54 AM [facility] Abs Neut (Segs + Bands) 10.58(H) 1.45 - 7.50 k/uL 09/13/2024 5:54 AM [facility] Lymphocytes % 29.0 % 09/13/2024 5:54 AM [facility] Abs Lymph (Normal + Reactive) 4.95(H) 1.00 - 4.00 k/uL 09/13/2024 5:54 AM [facility] Monocytes % 6.0 % 09/13/2024 5:54 AM [facility] Abs Frontier 1.02(H) <0.87 k/uL 09/13/2024 5:54 AM [facility] Eosin% 2.0 % 09/13/2024 5:54 AM EDT [facility] Abs Eosin 0.34 <0.46 k/uL 09/13/2024 5:54 AM EDT [facility] Basophils % 1.0 % 09/13/2024 5:54 AM EDT [facility] Abs Baso 0.17(H) <0.11 k/uL 09/13/2024 5:54 AM EDT [facility] Platelet Estimate Increased 09/13/2024 5:54 AM EDT [facility] Red Cell Morph Reviewed: unremarkable 09/13/2024 5:54 AM EDT [facility] Diff Type Manual 09/13/2024 5:54 AM EDT [facility] Blood BLOOD SPECIMEN / Unknown Venipuncture / Unknown 09/12/2024 4:14 PM EDT 09/12/2024 4:14 PM EDT Narrative [facility] - 09/13/2024 5:54 AM EDT This is an appended report. These results have been appended to a previously verified report. us Reuben Navarrete MD LABORATORY Final Result [facility] [address] [address], [place] * EXTERNAL IMAGING (09/03/2024 7:51 AM EDT) Anatomical Region Laterality Modality Other us External Provider PA-C RADIOLOGY Final Res ult * OT-MR ABDOMEN WO/W CON IMPORT (08/27/2024) Anatomical Region Laterality Modality Other 08/27/2024 Narrative 09/03/2024 9:08 AM EDT Images were obtained outside of [facility] Procedure Note Provider, [facility] - 09/03/2024 Images were obtained outside of [facility] us [facility] Provider MRI Final Result * PT ED PATIENT INFORMATION (08/22/2024) 08/22/2024 Narrative [facility] - 09/22/2024 Provider LUIS fam patient JENNA KUMAR has not started their Shaylee program, time has . Shaylee program: PATIENT SAFETY INSTRUCTIONS FOR HEALTHCARE SETTINGS Angelic Duarte MD [facility] Final Result [facility] * EXTERNAL IMAGING (08/19/2024 11:16 AM EDT) Anatomical Region Laterality Modality Other External Provider PA-C RADIOLOGY Final Res ult * EXTERNAL LAB (08/12/2024 4:00 PM EDT) Only the most recent of5 resultswithin the time period is included. External Provider PA-C LABORATORY Final Res ult * NM PET/CT SKULL-THIGH INITIAL (07/23/2024 1:22 PM EDT) Anatomical Region Laterality Modality Nuclear Medicine , Nuclear Medicine 07/23/2024 1:22 PM EDT Narrative 07/24/2024 8:56 AM EDT * * *Final Report* * * DATE [...] * Uptake Time: 46 minutes * Radiopharmaceutical: K78-Oymqpcqogzgwztnioo (FDG) COMPARISON: No previous FDG PET/CT available [...] No radiotracer avid thyroid nodule. CHEST: Lungs & Pleura: No radiotracer avid mass, nodule, or [...] any questions regarding this interpretation, please call [phone]. If you are unable to reach us at the number above, please feel free to contact [facility] at [phone]. Procedure Note Provider, [facility] - 07/24/2024 * * *Final Report* * * DATE [...] * Uptake Time: 46 minutes * Radiopharmaceutical: K37-Sdxemmucfahycncmcs (FDG) COMPARISON: No previous FDG PET/CT available CORRELATION: CT from outside hospital dated 07/01/2024 RESULT: REFERENCES: FDG uptake is used as a surrogate marker for glucose metabolism. All reported standardized uptake values represent maximum SUV (SUVmax) per body weight, unless otherwise specified. SUV reference values, asfollows: * Blood Pool (Descending Aorta): SUVmax 1.9 * Background Liver: SUVmax 2.5; SUVmean 2.3 Localizer Images: Unremarkable. HEAD AND NECK: Head: No radiotracer avid lesion or mass effect in the imaged intracranial compartment. Aerodigestive Tract: No radiotracer avid lesion. Lymph Nodes: No radiotracer avid lymphadenopathy. Neck Soft Tissues: No radiotracer avid thyroid nodule. CHEST: Lungs & Pleura: No radiotracer avid mass, nodule, or [...] any questions regarding this interpretation, please call [phone]. If you are unable to reach us at the number above, please feel free to contact [facility] at [phone]. Reuben Navarrete MD NM-PAMA Final Result * (ABNORMAL) GLUCOSE, BLOOD (POC) (07/23/2024 11:23 AM EDT) [facility] Glucose Point of Care 100(A) 74 - 99 mg/dL [facility] Comment: Location:[facility], [address] [place] [address] [place], [place], [address] The Accu-Chek Inform II glucose meter has [...] blood gas instrument) in the above situations. 07/23/2024 11:2 3 AM EDT us [facility] Provider POC TESTING Final Result [facility] POINT OF CARE [address] [place], [place] * FOUNDATIONONELIQUIDCDX (07/23/2024 11:16 AM EDT) [facility] Result Status See Report for Final Results FMI Order Test ID: [id number] 08/01/2024 5:44 PM EDT [facility] Microsatellite Status MSI-High Not Detected 08/01/2024 5:44 PM EDT [facility] Blood Tumor Mutational [place] 1 Muts/Mb 08/01/2024 5:44 PM EDT [facility] ctDNA Tumor Fraction Low (< 1.0%) 08/01/2024 5:44 PM EDT [facility] Blood Venipuncture / Unknown 07/23/2024 11:16 AM EDT 07/24/2024 11:06 AM EDT Narrative This result has genomic variants that were not included in this document. Layne Lyman PA-C LABORATORY Final Result Performing Organization Address [facility]/ZIP Co de Phone Number [facility] [address] [place] [address], * CARCINOEMBRYONIC ANTIGEN (07/19/2024 4:03 PM EST) CEA 2.9 <=2.9 ng/mL 07/22/2024 10:26 AM EDT [facility] Comment: Carcinoembryonic antigen test is used as an aid in monitoring response to treatment or recurrence in patients with established colorectal, breast, lung, prostatic, pancreatic, and ovarian carcinomas. Clinical correlation is required. The Carcinoembryonic antigen test was performed using the [place] Unicel DXI paramagnetic particle chemiluminescent immunoassay method. Results obtained with different assay methods or kits cannot be used interchangeably. Blood BLOOD SPECIMEN / Unknown Venipuncture / Unknown 07/19/2024 4:03 PM EST 07/19/2024 4:03 PM EST Reuben Navarrete MD LABORATORY Final Result [facility] [address] [place] [address], * CA 19-9 (07/19/2024 4:03 PM EST) CA19-9 <2.0 <36.0 U/mL 07/22/2024 10:23 AM EDT [facility] Comment: Cancer antigen 19-9 test is used as an aid in monitoring response to treatment or recurrence in patients with established pancreatic, hepatobiliary, or gastrointestinal malignancies. Clinical correlation is required. The CA 19-9 Antigen test was performed using the Brett [place] Unicel DXI paramagnetic particle chemiluminescent immunoassay method. Results obtained with different assay methods or kits cannot be used interchangeably. Blood BLOOD SPECIMEN / Unknown Venipuncture / Unknown 07/19/2024 4:03 PM EST 07/19/2024 4:03 PM EST Narrative [facility] - 07/22/2024 10:23 AM EDT Note that patients must possess the ability to express the Alan blood group antigen or they will be unable to produce the CA 19-9 antigen even in the presence of proven malignancy. Reuben Navarrete MD LABORATORY Final Result Performing Organization Address City/State/[facility] Co de Phone Number [facility] [address] [address], [place] * EXTERNAL IMAGING (07/17/2024 2:39 PM EST) Anatomical Region Laterality Modality Other us External Provider PA-C RADIOLOGY Final Res ult * EXTERNAL IMAGING (07/17/2024 2:39 PM EST) Anatomical Region Laterality Modality Other us External Provider PA-C RADIOLOGY Final Res ult from Last [address] [place] [address] MEDICARE [email or web address] MEDICARE [employer] SUPPLEMENT Care Teams It Software Engineer Relationship Specialty Start Date End Date Mayito Jade DO [address] [place] [address] PCP - General Internal Medicine 07/17/24
--- OUTSIDE RECORDS SUMMARY | 2024-10-05 22:05 | XMS_ITS | Clinical Summary ---
Author Organization [facility] tem Address [id number] [address] [place] [address] Care Team Providers Care Die Inspector Name Role Phone Unavailable Primary Care Provider Unavailabl e Social History Tobacco Use Types Packs/Day Years Used Date Smoking Tobacco: Never Assessed Comments Unknown Sex and Gender Information Value Date Recorded Sex Assigned at Not on file Legal Sex Female 11:39 AM EDT Gender Identity Not on file Sexual Orientation Not on file Plan of Treatment Upcoming Encounters Date Type Department Care Team (Latest Contact Info) Description 10/16/2024 10:00 AM EDT [facility] [address] [id number] 10/23/2024 2:00 PM EDT Hospital Encounter [facility] Endoscopy [address] [place] [id number] Bradley Pope MD [address] [place] [address], [address] [place] [address] 10/23/2024 2:00 PM EDT - 10/23/2024 3:30 PM EDT Surgery [facility] Endoscopy [address] [place] [phone] Bradley Pope MD [address] [place] [address], [address] [place], [place] [id number] ENDOSCOPIC RETROGRADE CHOLANGIO-PANCREATO GRAPHY [85631 (CPT )] Scheduled Procedures Name Priority Associated Diagnoses Date/Ti me 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 Author Autogenerat ed Goal Care Plan Autogenerated Problem No Lora Fan Medical Devices Not on file Additional Health Concerns Active Problems Noted Date Diagnosed Date Autogenerated Problem 10/03/2024
--- OUTSIDE RECORDS SUMMARY | 2024-10-05 22:05 | XMS_ITS | Clinical Summary ---
Author Organization [facility] Address [address] [address] [facility] [place] [address] Phone Care Team Providers Care Hebrew Professor Name Role Phone Unavailable Primary Care Provider Unavailabl e Social History Tobacco Use Types Packs/Day Years Used Date Smoking Tobacco: Never Assessed Comments Unknown Sex and Gender Information Value Date Recorded Sex Assigned at Not on file Legal Sex Female 3:06 PM EST Gender Identity Not on file Sexual Orientation Not on file Plan of Treatment Not on file
--- NOTE | 2024-10-05 22:19 | ECG_ITS ---
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 Measurements Intervals [place] Rate: 95 P: 65 NH: 186 QRS: 111 QRSD: 124 T: -5 QT: 376 QTc: 429 Interpretive Statements Limb lead reversal, suggest repeat ECG 1100 Sinus rhythm 1470 with occasional supraventricular premature complexes 3234 Anteroseptal myocardial infarction, age undetermined [address] depression 5120 Possible right ventricular hypertrophy 9150 abnormal ECG Compared to ECG 07/01/2024 14:08:44 Left bundle-branch block no longer seen (could be related to limb lead reversal) Electronically Signed On 10-06-2024 13:55:11 EDT by ASLHY ARRINGTON M.D.
[2024-10-05 22:32] LABS: Hemoglobin 13.2 g/dL (12.0-16.0); Mean Corpuscular Hemoglobin 27.7 pg (26.7-34.0); Mean Platelet Volume 11.7 fL (9.5-13.5); Platelet Count 413 10^3/uL (150-450); Red Blood Count 4.76 10^6/uL (4.20-5.40); White Blood Count 21.6 10^3/uL (4.0-11.0)
[2024-10-05 22:55] LABS: Alanine Aminotransferase 89 U/L (14-59); Albumin Globulin Ratio 0.7; Albumin Level 3.1 g/dL (3.4-5.0); Alkaline Phosphatase 829 U/L (46-116); Anion Gap 11.7; Aspartate Amino Transferase 97 U/L (15-37); BUN Creatinine Ratio 36.6; Bilirubin Total 0.8 mg/dL (0.2-1.0); Calcium 9.6 mg/dL (8.5-10.1); Carbon Dioxide 28.5 mmol/L (21.0-32.0); Chloride 100 mmol/L (98-107); Estimated GFR (African America >60 (>=60 mL/min/1.73m^2); Estimated GFR (Non-African Ame >60 (>=60 mL/min/1.73m^2); Globulin 4.6 g/dL; Glucose 114 mg/dL (74-106); Magnesium 2.1 mg/dL (1.8-2.4); Potassium 4.2 mmol/L (3.5-5.1); Sodium 136 mmol/L (136-145); Total Protein 7.7 g/dL (6.4-8.2); Troponin I High Sensitivity 5.7 pg/mL (4.0-51.3)
[2024-10-05 22:58] LABS: Segmented Neut Absolute Manual 12.09 10^3/uL (1.4-6.5)
[2024-10-05 22:59] LABS: Eosinophils Absolute Manual 0.64 10^3/uL (0.00-0.70); Monocytes Absolute Manual 0.64 10^3/uL (0.30-0.80)
[2024-10-05] MEDS: 0.9 % SODIUM CHLORIDE 1,000 ML 999 ML IV (23:15)
--- NOTE | 2024-10-05 23:20 | ED.SYNCOPE1 ---
HPI - Syncope General Chief Complaint: Syncope Stated Complaint: PASSED OUT AND FELL, CAN'T MOVE NECK Time Seen by Provider: 10/05/24 22:00 Source: patient Mode of arrival: Wheelchair Limitations: no limitations History of Present Illness HPI narrative: cc - passed out Pt states that 45 minutes ago, she passed out and hit her head. She said that she was taking the dogs out for a walk and then noticed a stink bug on the wall. She said that she used a kleenex tissue to get the bug and was throwing it outside. When she came back in, she said that she does not remember what happened next . Her helped her up. She complains of pain throughout the posterior aspect of the neck. no headache. no numbness or tingling. No other areas of the body are injured or sore. She did not take anything for pain prior to arrival She declined offer for pain meds on arrival. Related Data Home Medications ?Medication ?Instructions ?Recorded ?Confirmed diazepam 2 mg tablet 2 mg PO Q6H PRN anxiety 07/01/24 10/05/24 losartan 25 mg tablet 25 mg PO DAILY 07/01/24 10/05/24 metoprolol tartrate 25 mg tablet 12.5 mg PO DAILY 07/01/24 10/05/24 ondansetron HCl 8 mg tablet mg 10/05/24 Allergies Allergy/AdvReac Type Severity Reaction Status Date / Time penicillin G AdvReac Intermediate Unknown Verified 10/05/24 22:12 Sulfa (Sulfonamide AdvReac Intermediate Unknown Verified 10/05/24 22:12 Antibiotics) [facility] Medical History (Updated 10/06/24 @ 01:17 by Omari Goldstein) Bundle branch block, left ?I44.7 - Left bundle-branch block, unspecified (ICD-10) 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.0 - Neoplasm of unspecified behavior of digestive system (ICD-10) Surgical History (Updated 10/05/24 @ 22:48 by Get Lucas RN) History of rectal surgery ?Z98.890 - Other specified postprocedural states (ICD-10) Social History Little interest or pleasure in doing things: not at all Feeling down, depressed, or hopeless: not at all Exam Narrative Exam Narrative: Nurses note and vital signs reviewed and patient is not hypoxic. afebrile General: The patient appears well and in no apparent distress. Patient is resting comfortably on cart. GCS = 15. Skin: Warm, dry, no pallor noted. Head: Normocephalic, atraumatic Neck: cervical collar placed on arrival. Eyes: PERRLA, EOMI ENT: No facial or oral injury Cardiovascular: Regular Rate and Rhythm Respiratory: Patient is in no distress, no accessory muscle use, lungs are clear to auscultation, no wheezing, rales or rhonchi Chest Wall: no tenderness or flail chest. Back: No thoracic vertebral or lumbar vertebral tenderness to palpation. Musculoskeletal: no sign of long bone fracture. No hp or pelvis tenderness. No extremity deformity, tenderness or swelling. Pulses at femoral, DP, PT, and popiteal were 2+ bilaterally. Moves all four extremities in all modalities with 5/5 strength. GI: Normal bowel sounds, no tenderness to palpation, no masses appreciated. No rebound, guarding, or rigidity noted. Neurological: A&O x4, normal equal credit analyst strength, normal finger to nose, normal speech, normal coordination, normal motor, normal sensory. Psychiatric: Cooperative Constitutional Vital Signs, click to edit/add: Last Vital Signs Temp 98.1 F 10/05/24 22:13 Pulse 88 10/06/24 01:10 Resp 14 10/06/24 01:10 BP 171/75 H 10/06/24 01:01 Pulse Ox 96 10/06/24 01:10 O2 Del Method Room Air 10/05/24 22:13 Course Vital Signs Vital signs: Vital Signs Pulse Oximetry 98 10/05/24 22:11 Temperature 98.1 F 10/05/24 22:13 Pulse Rate 88 10/06/24 01:10 Respiratory Rate 14 10/06/24 01:10 Blood Pressure 171/75 H 10/06/24 01:01 Pulse Oximetry 96 10/06/24 01:10 Oxygen Delivery Method Room Air 10/05/24 22:13 MDM - Syncope MDM Narrative Medical decision making narrative: Patient was placed on pharmacy intake coordinator and EKG obtained. Blood drawn and sent for evaluation. Urine ordered to be obtained and sent for testing. She was sent for CT scanning of the head and cervical spine White blood cell count elevated 21.6. Normal hemoglobin and hematocrit and normal platelet count CMP was unremarkable other than elevated AST, ALT and alk phos, consistent with her liver cancer diagnosis. Troponin and BNP were normal. EKG is unchanged from prior comparison EKG on July 01, 2024. Urinalysis showed 5-10 white cells and some bacteria with positive leukocyte Estrace -she was given oral Keflex prior to transfer. According to the radiologist report, the patient may have a nondisplaced oblique fracture at the base of the dens. I spoke with the patient and she has ongoing care at [facility], so we called there to talk to the trauma surgeon about this patient's case. @ [address] Ham - trauma surgeon dynamics ax consultant at [facility]. After discussing the CT findings and diagnosis, he accepted the patient's transfer to their facility - ED to ED trauma transfer. Pt informed of their acceptance to [facility]. We are now awaiting ambulance She is stable for transfer Medical Records Attestation: I reviewed the patient's medical records. Lab Data Attestation: I reviewed the patient's lab results. Labs: Lab Results 10/05/24 10/06/24 Range/Units 22:20 00:15 WBC 21.6 H (4.0-11.0) 10^3/uL RBC 4.76 (4.20-5.40) 10^6/uL Hgb 13.2 (12.0-16.0) g/dL Hct 40.0 (36.0-48.0) % MCV 84.0 (81.0-99.0) fL MCH 27.7 (26.7-34.0) pg MCHC 33.0 (29.9-35.2) g/dL RDW 14.0 (11.0-15.0) % Plt Count 413 (150-450) 10^3/uL MPV 11.7 (9.5-13.5) fL Seg Neuts % (Manual) 56.0 (43.0-75.0) Lymphocytes % (Manual) 38.0 (20.5-60.0) % Monocytes % (Manual) 3.0 (1.7-12.0) % Eosinophils % (Manual) 3.0 (0.9-7.0) % Basophils % (Manual) 0.0 L (0.2-2.0) % Neutrophils # (Manual) 12.09 H (1.4-6.5) 10^3/uL Lymphocytes # (Manual) 8.20 H (1.20-3.80) 10^3/uL Monocytes # (Manual) 0.64 (0.30-0.80) 10^3/uL Eosinophils # (Manual) 0.64 (0.00-0.70) 10^3/uL Basophils # (Manual) 0.00 (0.00-0.10) 10^3/uL Sodium 136 (136-145) mmol/L Potassium 4.2 (3.5-5.1) mmol/L Chloride 100 (98-107) mmol/L Carbon Dioxide 28.5 (21.0-32.0) mmol/L Anion Gap 11.7 BUN 30.0 H (7.0-18.0) mg/dL Creatinine 0.82 (0.55-1.02) mg/dL Est GFR ( Amer) >60 (>=60 mL/min/1.73m^2) Est GFR (Non-Af Amer) >60 (>=60 mL/min/1.73m^2) BUN/Creatinine Ratio 36.6 Glucose 114 H (74-106) mg/dL Calcium 9.6 (8.5-10.1) mg/dL Magnesium 2.1 (1.8-2.4) mg/dL Total Bilirubin 0.8 (0.2-1.0) mg/dL AST 97 H (15-37) U/L ALT 89 H (14-59) U/L Alkaline Phosphatase 829 H (46-116) U/L Troponin I High Sens 5.7 (4.0-51.3) pg/mL NT-Pro-B Natriuret Pep 90.0 (<=1800.0) pg/mL Total Protein 7.7 (6.4-8.2) g/dL Albumin 3.1 L (3.4-5.0) g/dL Globulin 4.6 g/dL Albumin/Globulin Ratio 0.7 Urine Color Lt. yellow (YELLOW) Urine Clarity Clear (CLEAR) Urine pH 6.0 (5.0-9.0) Ur Specific [place] 1.010 (1.005-1.025) Urine Protein Negative (NEG/TRACE) mg/dL Urine Glucose (UA) Negative (NEGATIVE) mg/dL Urine Ketones Negative (NEGATIVE) mg/dL Urine Occult Blood Negative (NEGATIVE) Urine Nitrite Negative (NEGATIVE) Urine Bilirubin Negative (NEGATIVE) Urine Urobilinogen 0.2 (0.2-1.0) EU/dL Ur Leukocyte Esterase Small A (NEGATIVE) Urine RBC 0-2 (0-2) #/HPF Urine WBC 5-10 A (NONE SEEN) #/HPF Ur Squamous Epith Cells Few A (NONE/RARE) #/LPF Urine Crystals None seen (None Seen) #/HPF Urine Bacteria Trace A (NONE SEEN) #/HPF Urine Casts None seen (NONE SEEN) #/LPF Urine Mucus None seen (NONE SEEN) Ur Culture Indicated? Yes-[facility] [place] Imaging Data ct head, ct cervical spine: Radiologist's impression: Findings: 1. Mild generalized brain volume loss 2. No acute intracranial hemorrhage, mass, infarct or edema. 3. Minimal mucosal thickening in the ethmoid air cells. 4. No acute fracture of the calvarium. 5. No scalp hematoma. 6. Anatomic alignment of the cervical vertebral bodies. 7. Focal cortical step-off along the dorsal cortical margin of the dens best seen on images 26 and 27, series 7 suggestive of underlying nondisplaced oblique fracture at the base of the dens. 8. Normal thickness of the prevertebral soft tissues. 9. No acute dislocation. 10. No apical pneumothorax. ECG Data Attestation: I personally reviewed and interpreted this ECG as follows: Interpretation: EKG interpretation: Emergency Department physician interpretation. Normal sinus rhythm at 95bpm. Anteroseptal changes as well as moderate ST depression in the inferolateral leads -II, III, aVF, V4 through V6. QRS widening indicative of the left bundle branch block. Additional interpretation is limited Discharge Plan Discharge Chief Complaint: Syncope Clinical Impression: Nondisplaced type ii dens fracture, initial encounter for closed fracture, Syncope, Head injury, Leukocytosis, Acute UTI Patient Disposition: [facility] Time of Disposition Decision: 00:33 Discharge Location: [facility]
[2024-10-06] VITALS (14 sets, daily range): BP systolic 165–171; BP diastolic 75–90; PULSE 86–102; O2SAT 95–98
[2024-10-06 00:43] LABS: Bilirubin Urine NEGATIVE (NEGATIVE); Blood Urine NEGATIVE (NEGATIVE); Clarity Urine CLEAR (CLEAR); Color Urine LT. YELLOW (YELLOW); Glucose Urine UA NEGATIVE (NEGATIVE); Ketones Urine NEGATIVE (NEGATIVE); Leukocyte Esterase Urine SMALL (NEGATIVE); Nitrite Urine NEGATIVE (NEGATIVE); Protein Urine NEGATIVE (NEG/TRACE); Urobilinogen Urine 0.2 EU/dL (0.2-1.0)
[2024-10-06 00:58] LABS: Bacteria Urine TRACE #/HPF (NONE SEEN); Mucus Urine NONE SEEN (NONE SEEN); RBC Urine 0-2 #/HPF (0-2)
[2024-10-06 00:59] LABS: Cast Seen? NONE SEEN #/LPF (NONE SEEN); Crystals Seen? None Seen #/HPF (None Seen); Squamous Epithelial Cell Urine FEW #/LPF (NONE/RARE)
[2024-10-06 01:00] LABS: Urine Culture Indicated YES-FRMC
--- NOTE | 2024-10-06 01:12 | PC.NURSE ---
this patient has been updated by Dr Goldstein and myself of transfer to [facility] ER Dept. and transportation will be here 01:45 tonight. this patient voices no concerns and shows no signs of distress
[2024-10-06] MEDS: CEPHALEXIN 500 MG CAPSULE PO (01:39)
--- NOTE | 2024-10-06 02:21 | PC.NURSE ---
i called patient report to [facility] ER dept,([phone]) and spoke with Mary charge nurse this patient is awake and alert and voices no concerns and shows no signs of distress at time of transfer time
== END 2024-10-06 02:20 | disposition short-term general hospital (02) ==
PROVIDERS: Emergency Provider Emergency Medicine; PCP Internal Medicine
DX: S12.121A Other nondisplaced dens fracture, initial encounter for closed fracture (principal); R55 Syncope and collapse; S09.90XA Unspecified injury of head, initial encounter; N39.0 Urinary tract infection, site not specified; C22.8 Malignant neoplasm of liver, primary, unspecified as to type; W18.39XA Other fall on same level, initial encounter; D72.829 Elevated white blood cell count, unspecified
CPT/HCPCS: 36415; 70450; 71045; 72125; 80053; 81001; 83735; 83880; 84484; 85007; 85027; 87086; 87088; 87186; 93005; 99285

== ENCOUNTER 2024-11-15 10:51 | Emergency (ER) | payer MEDICARE, SELFPAY ==
[2024-11-15] VITALS (25 sets, daily range): BP systolic 111–151; BP diastolic 63–78; PULSE 86–118; TEMP 36.9; O2SAT 93–98; BMI 22.1
--- OUTSIDE RECORDS SUMMARY | 2024-11-15 10:59 | XMS_ITS | CCD ---
Author Organization [facility] Care Team Providers Care Electro Mechanical Engineer Name Role Phone DR MAYITO COSTELLO Primary Care Unavailable LEONIDAS JIM Attending Unavailable DIANDRA, LEONIDAS Consulting Unavailable DIANDRA, LEONIDAS Admitting Unavailable BALL, DR BERNARDO Primary Care Unavailable BALL, DR BERNARDO Admitting Unavailable BALL, DR BERNARDO Attending Unavailable BALL, DR BERNARDO Consulting Unavailable BALL, DR BERNARDO Primary Care Unavailable BALL, DR BERNARDO Admitting Unavailable BALL, DR BERNARDO Attending Unavailable BALL, DR BERNARDO Consulting Unavailable BALL, DR BERNARDO Primary Care Unavailable DIANDRA, LEONIDAS Consulting Unavailable DIANDRA, LEONIDAS Admitting Unavailable ROSS, LEONIDAS Attending Unavailable ROSS, LEONIDAS Consulting Unavailable ROSS, LEONIDAS Admitting Unavailable DIANDRA, LEONIDAS Attending Unavailable BALL, DR BERNARDO Primary Care Unavailable Mayito Costello Unavailable Saad Devi DO Attending Provider [phone] Mayito Costello DO Primary Care Provider OLIVIA DUARTE Admitting Unavailable OLIVIA DUARTE Attending Unavailable MAYITO COSTELLO Primary Care Unavailable ABHYANKAR, REUBEN Attending Unavailable MAYITO COSTELLO Referring Unavailable MAYITO COSTELLO Primary Care Unavailable ABHYANKAR, REUBEN Referring Unavailable MAYITO COSTELLO Primary Care Unavailable OLIVIA DUARTE Referring Unavailable MAYITO COSTELLO Primary Care Unavailable MAYITO COSTELLO Primary Care Unavailable ABHYANKAR, REUBEN Referring Unavailable HUGO TAYLOR Attending Unavailable OLIVIA DUARTE Attending Unavailable HYANKAR, REUBEN Referring Unavailable MAYITO COSTELLO Primary Care Unavailable TRANG, MAYITO Le Primary Care Unavailable ABHYANKAR, REUBEN Attending Unavailable ABHYANKAR, REUBEN Referring Unavailable ABHYANKAR, REUBEN Attending Unavailable MAYITO COSTELLO Primary Care Unavailable VENNEPUREDSOBEIDA, JAE Referring Unavailable BALL, MAYITO E Primary Care Unavailable ABHYANKAR, REUBEN Referring Unavailable Ball DO, Mayito E Primary Care Provider Omari Goldstein Attending Unavailable Omari Goldstein Admitting Unavailable Pay, Saad Attending Unavailable Pay, Saad Admitting Unavailable ASUNCION, REECE Tavares Attending Unavailable ENIX, LUCY Referring Unavailable MORALES, BASMAH Referring Unavailable NAWRAS, ALI Referring Unavailable NAWRAS, ALI Attending Unavailable HORANI, CHIARA Admitting Unavailable PAY, SAAD Referring Unavailable COLLIER, ALBERT BACAL Attending Unavailable NAWRAS, ALI Admitting Unavailable NAWRAS, ALI Attending Unavailable BALL, MAYITO Referring Unavailable NAWRAS, ALI Referring Unavailable NAWRAS, ALI Attending Unavailable NAWRAS, ALI Admitting Unavailable BALL, MAYITO Referring Unavailable NAWRAS, ALI Referring Unavailable HAMOUDA, CHRISTOPHER M Referring Unavailable HAMOUDA, CHRISTOPHER M Referring Unavailable [facility] Referring Unavailable Allergies Allergy Classification Reported Allergen(s) Allergy Type Date of Onset Reaction(s) Facility (2 sources) Penicillin; Translations: [PENICILLIN] Drug Allergy 05-15-18 70 [facility] Repository (1 source) Sulfonamides (Antibiotic) Drug allergy (disorder) 05-15-18 60 [facility] Repository (20 sources) sulfADIAZINE; Translations: [SULFADIAZINE] Drug Allergy 04-03-20 [facility] (1 source) patient allergy list reviewed by nurse or physicia Propensity to adverse reactions 01-09-20 Comment:Done [employer] Other (1 source) Substance with penicillin structure and antibacterial mechanism of action (substance) Drug allergy 01-08-20 19 Unknown [employer] Other (20 sources) Penicillins; Translations: [PENICILLINS] Allergy to substance 04-03-20 [facility] Comment on above: Onset Date: 01/08/20 19 (7 sources) cefTRIAXone; Translations: [CEFTRIAXONE] Drug Allergy 07-09-19 [facility] (7 sources) meropenem; Translations: [MEROPENEM] Drug Allergy 07-09-19 25 Itching, Rash [facility] (6 sources) NITROFURANTOIN, MACROCRYSTALS / Nitrofurantoin, Monohydrate Drug Allergy 10-08-19 25 Facial Swelling [employer] Work Phone: (1 source) sulfADIAZINE Drug Allergy 07-17-19 [facility] Repository (4 sources) Ondansetron Drug Allergy 10-17-19 Dizziness [facility] [employer] Medications Current Medications Medication Drug Class(es) Dates Sig (Normalized) Sig (Original) acetaminophen 500 mg oral tablet (6 sources) Start: 10-08-2024 take 1 tablet by mouth every six hours as needed for pain acetaminophen (TYLENOL EXTRA STRENGTH) 500 mg tablet Take 1 tablet (500 mg total) by mouth every 6 (six) hours as needed for pain. 30 tablet 10/08/2024 Active ciprofloxacin 500 mg oral tablet (1 source) Quinolone Antimicrobial Start: 09-20-2024 End: 09-27-2024 take 1 tablet by mouth twice daily ciprofloxacin HCl (CIPRO) 500 mg tablet Take 1 tablet by mouth two times a day for 7 days. 14 tablet 09/20/2024 09/27/2024 Active diazePAM 2 mg oral tablet (20 sources) Benzodiazepine Start: 06-17-2024 take 1 tablet by mouth twice daily as needed for anxiety Diazepam 2 mg tablet Active 2 MG PO Twice daily as needed for anxiety June 17, 2024 7:11pm Start: 06-11-2024 End: 06-17-2024 take 1 tablet by mouth every eight hours as needed for anxiety Diazepam 2 mg tablet Discontinued 2 MG PO Every 8 hours as needed for anxiety June 14, 2024 1:20pm June 17, 2024 7:11pm Start: 03-20-2023 End: 06-11-2024 take 1 tablet by mouth every six hours as needed for anxiety Diazepam 2 mg tablet Discontinued 2 MG PO Every 6 hours as needed for anxiety September 28, 2023 12:00am September 29, 2023 1:17pm docusate sodium 50 mg / sennosides, mcc 8.6 mg oral tablet (3 sources) Start: 10-08-2024 End: 10-18-2024 take 2 tablets by mouth once daily sennosides-docusate sodium (SENOKOT-S) 8.6-50 mg Take 2 tablets by mouth nightly for 10 days. 20 tablet 10/08/2024 10/18/2024 Active gabapentin 300 mg oral capsule (3 sources) Anti-epileptic Agent Start: 10-08-2024 End: 10-16-2024 take 1 capsule by mouth every eight hours gabapentin (NEURONTIN) 300 mg capsule Indications: Closed fracture of cervical vertebra, unspecified cervical vertebral level, initial encounter (CMS-HCC) Take 1 capsule (300 mg total) by mouth every 8 (eight) hours. 90 capsule 10/08/2024 10/16/2024 Discontinued (Therapy completed) hydrocortisone 25 mg/ml topical cream (20 sources) Corticosteroid Start: 04-30-2024 Hydrocortisone 2.5 % cream Active 0 .ROUTE .COMPLEX 28.35 April 30, 2024 6:43pm APPLY TOPICALLY TWICE DAILY NEEDED FOR SKIN IRRITATION FOR 30 DAYS Start: 04-30-2024 End: 10-16-2024 hydrocortisone (HYTONE) 2.5 % cream 04/30/2024 10/16/2024 Discontinued (Therapy completed) Start: 04-30-2024 hydrocortisone 2.5 % cream APPLY TOPICALLY TWICE DAILY NEEDED FOR SKIN IRRITATION FOR 30 DAYS 04/30/2024 Active Start: 04-03-2024 End: 04-30-2024 Hydrocortisone 2.5 % cream D iscontinued 1 APPLIC TOPICAL Twice daily as needed for skin irritation April 03, 2024 1:00am April 30, 2024 6:43pm iv contrast (will be provided with radiology [...] 25 mg oral tablet (20 sources) beta-Adrenergic Cornell Start: 07-04-2024 End: 10-10-2024 take 0.5 tablet by mouth in the morning, then take 0.5 tablet by mouth at bedtime metoprolol tartrate (LOPRESSOR) 25 mg tablet Take 0.5 tablets (12.5 mg total) by mouth in the morning and 0.5 tablets (12.5 mg total) before bedtime. BBB. 09/11/2024 Active Start: 07-04-2024 End: 10-10-2024 metoprolol tartrate, short a cting, (LOPRESSOR) 25 mg tablet Take 12.5 mg by mouth two times a day. 07/04/2024 10/10/2024 Active Start: 09-28-2023 End: 03-14-2024 take 0.5 tablet by mouth twice daily Metoprolol Tartrate 25 mg tablet Discontinued 0 .ROUTE .COMPLEX 90 December 24, 2023 2:02pm March 14, 2024 1:31pm TAKE 1/2 TABLET BY MOUTH TWICE A DAY Start: 09-28-2023 End: 09-28-2023 take 0.5 tablet by mouth twice daily Metoprolol Tartrate 25 mg tablet Discontinued 25 MG PO Twice daily September 28, 2023 12:00am September 28, 2023 10:52am TAKE 1/2 TABLET BY MOUTH TWICE A DAY take 0.5 tablet by m outh twice daily Metoprolol Tartrate 25 MG TAKE 1/2 TABLET BY MOUTH TWICE A DAY Active metroNIDAZOLE 500 mg oral tablet (1 source) Nitroimidazole Antimicrobial Start: 09-20-2024 End: 09-27-2024 take 1 tablet by mouth three times daily metroNIDAZOLE (FLAGYL) 500 mg tablet Take 1 tablet by mouth three times a day for 7 days. 21 tablet 09/20/2024 09/27/2024 Active ondansetron 8 mg oral tablet (14 sources) Serotonin-3 Receptor Antagonist Start: 08-19-2024 End: 10-16-2024 take 1 tablet by mouth every eight hours as needed ondansetron (ZOFRAN) 8 mg tablet Take 1 tablet (8 mg total) by mouth every 8 (eight) hours as needed. 08/19/2024 10/16/2024 Discontinued (Therapy completed) oxyCODONE hydrochloride 5 mg oral tablet (1 source) Opioid Agonist Start: 09-20-2024 End: 09-27-2024 take 1 tablet by mouth every six hours as needed for pain oxyCODONE IR (ROXICODONE) 5 mg immediate release tablet Indications: Post-op pain Take 1 tablet by mouth every 6 hours as needed for pain for up to 7 days. 20 tablet 09/20/2024 09/27/2024 Active pantoprazole 40 mg delayed release oral tablet (18 sources) Proton Pump Inhibitor Start: 07-04-2024 End: 10-09-2024 Pantoprazole 40 mg tablet,delayed release (DR/EC) Active MG PO July 16, 2024 1:00am tiZANidine 2 mg oral tablet (3 sources) Central alpha-2 Adrenergic Agonist Start: 10-08-2024 End: 10-16-2024 take 1 tablet by mouth every six hours as needed tiZANidine (ZANAFLEX) 2 mg tablet Take 1 tablet (2 mg total) by mouth every 6 (six) hours as needed for muscle spasms. 30 tablet 10/08/2024 10/16/2024 Discontinued (Therapy completed) Completed/Discontinued Medications Medication Drug Class(es) Dates Sig (Normalized) Sig (Original) losartan potassium 25 mg oral tablet (20 sources) Angiotensin 2 Receptor Cornell Start: 10-02-2023 End: 06-17-2024 take 1 tablet by mouth once daily Losartan 25 mg tablet Discontinued 0 .ROUTE .COMPLEX 90 March 21, 2024 11:39am June 17, 2024 7:11pm TAKE 1 TABLET BY MOUTH EVERY DAY Start: 09-28-2023 End: 10-02-2023 take 1 tablet by mouth once daily Losartan 25 mg tablet Discontinued 25 MG PO Daily September 27, 2023 11:00pm October 02, 2023 11:47am Problems Active Problems Problem Classification Problem Date Documented Date Episodic/Chronic Acute posthemorrhagic anemia (4 sources) Acute posthemorrhagic anemia; Translations: [Acute posthemorrhagic anemia] 07-15-2024 Episodic Anxiety disorders (20 sources) Generalized anxiety disorder; Translations: [Generalized anxiety disorder] Onset: 5 09-29-2023 Chronic Biliary tract disease (11 sources) Obstructive hyperbilirubinemia; Translations: [Obstruction of bile duct] Onset: 5 06-20-2024 Chronic Cancer of liver and intrahepatic bile duct (20 sources) Adenocarcinoma of liver; Translations: [Malignant neoplasm of liver, not specified as primary or secondary] Onset: 5 07-15-2024 Chronic Comment on above: ERCP/bx: 07/03/24 Dx: 06/2024ERCP: high grade intrahepatic duct mass/stricture- placement of 2 intrahepatic duct stents FNA and brush bx of hepatic duct: Adenocarcinoma, CEA < 2.2, CA 19-9 < 2, alpha fetoprotein 5,Referral to [facility] for further evaluation and treatment.MRI: 6.8 x 5.4cm, which is slightly increased - 08/27/2024 Cancer of other GI organs; peritoneum (1 source) 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 Cardiac dysrhythmias (4 sources) Multiple premature ventricular complexes; Translations: [Ventricular premature depolarization] Onset: 5 09-12-2024 Chronic Cardiac dysrhythmias (6 sources) Palpitations; Translations: [Palpitations] Onset: Episodic Conduction disorders (6 sources) Left bundle branch block; Translations: [Left bundle-branch block, unspecified] Onset: 5 09-12-2024 Chronic Deficiency and other anemia (4 sources) Anemia; Translations: [Anemia, unspecified] 09-12-2024 Episodic Deficiency and other anemia (1 source) Anemia, unspecified; Translations: [Anemia, unspecified type] Onset: Episodic Disorders of lipid metabolism (12 sources) Familial hypercholesterolemia; Translations: [Hypercholesterolemia] Onset: 1 04-01-2024 Chronic Essential hypertension (20 sources) Essential (primary) hypertension; Translations: [Essential hypertension] Onset: 1 04-01-2024 Chronic Gastrointestinal hemorrhage (2 sources) Chronic or unspecified gastric ulcer with hemorrhage; Translations: [Chronic or unspecified gastric ulcer with hemorrhage] Onset: 5 Chronic Immunizations and screening for infectious disease (4 sources) Encounter for immunization; Translations: [ENCOUNTER FOR IMMUNIZATION] Onset: 2 Episodic Other aftercare (6 sources) Drug therapy finding; Translations: [Other fdc (current) drug therapy] 04-03-2024 Episodic Other and unspecified benign neoplasm (1 source) Tubulovillous adenoma of rectum; Translations: [Benign neoplasm of rectum] 07-16-2024 Episodic Comment on above: Dx: 06/2024Sigmoidosc opy: circumferential rectal mass- biopsy - tubulovillous adenomaColonoscopy: circumferential rectal mass- biopsy - tubulovillous adenoma w/ focal high grade dysplasia Other and unspecified benign neoplasm (1 source) Benign neoplasm of rectum; Translations: [Benign neoplasm of rectum and anal canal] 07-16-2024 Episodic Other bone disease and musculoskeletal deformities (1 source) Mass of musculoskeletal structure; Translations: [Other specified disorders of bone, other site] 08-04-2024 Episodic Other fractures (6 sources) Closed fracture of cervical spine; Translations: [Fracture of neck, unspecified, initial encounter] Onset: 5 10-06-2024 Episodic Other inflammatory condition of skin (10 sources) Pruritus, unspecified; Translations: [Pruritus] 06-20-2024 Episodic Other injuries and conditions due to external causes (1 source) History of fall; Translations: [History of falling] Episodic Other liver diseases (2 sources) Liver disease, unspecified; Translations: [Liver disease, unspecified] Onset: 5 Chronic Other liver diseases (3 sources) Liver mass; Translations: [Hepatomegaly, not elsewhere classified] 06-24-2024 Episodic Other liver diseases (3 sources) Hepatomegaly, not elsewhere classified; Translations: [Other specified disorders of liver] 06-24-2024 Episodic Other nervous system disorders (1 source) Other acute postprocedural pain; Translations: [Post-op pain] Onset: 5 Episodic Other nutritional; endocrine; and metabolic disorders (2 sources) Other disorders of bilirubin metabolism; Translations: [Other disorders of bilirubin metabolism] Onset: 5 Chronic Other nutritional; endocrine; and metabolic disorders (1 source) Overweight; Translations: [Overweight] Episodic Residual codes; unclassified (1 source) Procedure not done; Translations: [Procedure and treatment not carried out because of patient's decision for unspecified reasons] Episodic Residual codes; unclassified (6 sources) Mammogram declined; Translations: [Procedure and treatment not carried out because of patient's decision for unspecified reasons] 04-03-2024 Episodic Residual codes; unclassified (3 sources) Procedure and treatment not carried out because of patient's decision for unspecified reasons; Translations: [Surgical or other procedure not carried out because of patient's decision] 04-03-2024 Episodic Syncope (3 sources) Syncope; Translations: [Syncope and collapse] Onset: 5 10-29-2024 Episodic Unclassified (3 sources) Autogenerated Problem Onset: 5 10-03-2024 Past or Other Problems Problem Classification Problem Date Documented Da te Episodic/Chronic Allergic reactions (2 sources) Urticaria, unspecified; Translations: [Urticaria, unspecified] Onset: 5 Episodic Anal and rectal conditions (18 sources) Rectal mass; Translations: [Other specified diseases of anus and rectum] Onset: 5 06-24-2024 Episodic Bacterial infection; unspecified site (4 sources) Bacteremia; Translations: [Unspecified Escherichia coli [E. coli] as the cause of diseases classified elsewhere] Onset: 5 Episodic E Codes: Fall (2 sources) Unspecified fall, initial encounter; Translations: [Unspecified fall, initial encounter] Onset: 5 Episodic Fluid and electrolyte disorders (2 sources) Hypokalemia; Translations: [Hypokalemia] Onset: 5 Episodic Gastritis and duodenitis (2 sources) Duodenitis with bleeding; Translations: [Duodenitis with bleeding] Onset: 5 Episodic Gastrointestinal hemorrhage (2 sources) Gastrointestinal hemorrhage, unspecified; Translations: [Gastrointestinal hemorrhage, unspecified] Onset: 5 Episodic Mood disorders (6 sources) Mood disorders Onset: 5 10-06-2024 Other liver diseases (2 sources) Unspecified jaundice; Translations: [Unspecified jaundice] Onset: 5 Episodic Other screening for suspected conditions (not mental disorders or infectious disease) (6 sources) Blood chemistry abnormal; Translations: [Other specified abnormal findings of blood chemistry] Onset: 5 07-21-2024 Episodic Pancreatic disorders (not diabetes) (2 sources) Acute pancreatitis without necrosis or infection, unspecified; Translations: [Acute pancreatitis without necrosis or infection, unspecified] Onset: 5 Episodic Results Test Name Value Interpretation Reference Range Facility 36on 10-18-2024 36 Normal [facility] Telephoneon 10-18-2024 Telephone [id number] AjitlouAlissa 1945 F Date Provider Department Center 10/18/2024 [facility] No family history on file Normal [facility] Urine Cultureon 10-06-2024 Bacteria identified Cx Nom (U) ORGANISM: Escherichia coli (O:ESCCOL) [place] Count 15,000 Aerobic STEPHANIE Charge (NMIC56) SUSCEPTIBILITY ORGANISM: O:ESCCOL ANTIBIOTIC INTERPRETATION STEPHANIE Amikacin S <16 Amoxacillin/K Clavulanate S <8 Ampicillin S <8 Ampicillin/Sulbactam S <4 Aztreonam S <4 Cefazolin S <2 Cefepime S <2 Ceftazidime S <1 Ceftazidime/Avibactam S <4 Ceftolozane/Tazobactam S <2 Ceftriaxone S <1 Cefuroxime S <4 Ciprofloxacin S <0.25 Ertapenem S <0.5 Gentamicin S <2 Levofloxacin S <0.5 Meropenem S <1 Meropenem/Vaborbactam S <2 Nitrofurantoin S <32 Piperacillin/Tazobactam S <8 Tetracycline S <4 Tigecycline S <2 Tobramycin S <2 Trimethoprim/Sulfamethoxazole S <0.5 S = SUSCEPTIBLE I = INTERMEDIATE R = RESISTANT BLANK = DATA NOT AVAILABLE, OR DRUG NOT ADVISABLE OR TESTED R* = RESISTANCE DUE TO EXTENDED SPECTRUM BETA-LACTAMASES ESBL = EXTENDED SPECTRUM BETA-LACTAMASE TFG = THYMIDINE-DEPENDENT STRAIN JANIE = BETA-LACTAMASE POSITIVE IB = INDUCIBLE BETA-LACTAMASE. APPEARS IN PLACE OF 'S' WITH SPECIES KNOWN TO POSSESS INDUCIBLE BETA-LACTAMASES. POTENTIALLY THEY MAY BECOME RESISTANT TO ALL B-LACTAM DRUGS. PERFORMED BY: [place] [address] PATHOLOGIST [employer] EBONY HENRY M.D. Normal [facility] Comment on above: Performed By: #### C UU #### [address] Basophils/100 WBC Manual cnt (Bld)on 10-05-2024 Basophils/100 WBC (Bld) Basophils/100 leukocytes in Blood by Manual count Low 0.2-2.0 [facility] Eosinophils/100 WBC Manual c nt (Bld)on 10-05-2024 Eosinophils/100 WBC (Bld) Eosinophils/100 leukocytes in Blood by Manual count 0.9-7.0 [facility] Estimated glomerular filtrat ion rate (GFR) non- Americanon 10-05-2024 GFR/1.73 sq M.predicted among non-blacks MDRD (S/P/Bld) [Vol rate/Area] Estimated glomerular filtration rate (GFR) non- >=60 mL/min/1.7 3m 2 [facility] Globulin Calc (S) [Mass/Vol] on 10-05-2024 Globulin (S) [Mass/Vol] Serum globulin measurement by calculation (mass/volume) [facility] Laboratory - Chemistry and C hemistry - challengeon 10-05-2024 Albumin [Mass/Vol] 3.1 g/dL Low 3.4-5.0 [facility] ALP [Catalytic activity/Vol] 829 U/L High 46-116 [facility] ALT [Catalytic activity/Vol] 89 U/L High 14-59 [facility] AST [Catalytic activity/Vol] 97 U/L High 15-37 [facility] Bilirubin [Mass/Vol] 0.8 mg/dL 0.2-1.0 [facility] Calcium [Mass/Vol] 9.6 mg/dL 8.5-10.1 [facility] Chloride [Moles/Vol] 100 mmol/L 98-107 [facility] CO2 [Moles/Vol] 28.5 mmol/L 21.0-32.0 [facility] Creatinine [Mass/Vol] 0.82 mg/dL 0.55-1.02 [facility] GFR/1.73 sq M.predicted MDRD (S/P/Bld) [Vol rate/Area] mL/min/{1.73_m2} >=60 mL/min/1.7 3m 2 [facility] Glucose [Mass/Vol] 114 mg/dL High 74-106 [facility] Magnesium [Mass/Vol] 2.1 mg/dL 1.8-2.4 [facility] Natriuretic peptide B (Bld) [Mass/Vol] 90.0 pg/mL <=1800.0 [facility] Potassium [Moles/Vol] 4.2 mmol/L 3.5-5.1 [facility] Protein [Mass/Vol] 7.7 g/dL 6.4-8.2 [facility] Sodium [Moles/Vol] 136 mmol/L 136-145 [facility] Urea nitrogen [Mass/Vol] 30.0 mg/dL High 7.0-18.0 [facility] Urea nitrogen/Creatinin e [Mass ratio] 36.6 mg/mg [facility] Laboratory - Hematology and Cell countson 10-05-2024 Lymphocytes/100 WBC (Bld) 38.0 % 20.5-60.0 [facility] Monocytes/100 WBC (Bld) 3.0 % 1.7-12.0 [facility] No Panel Informationon 10-05 Absolute Basophils (Manual) 0.00 10 3/uL 0.00-0.10 [facility] Eosinophils # (Manual) 0.64 10 3/uL 0.00-0.70 [facility] Lymphocytes # (Manual) 8.20 10 3/uL High 1.20-3.80 [facility] Monocytes # (Manual) 0.64 10 3/uL 0.30-0.80 [facility] Segmented Neutrophils # (Manual) 12.09 10 3/uL High 1.4-6.5 [facility] Troponin I High Sensitivity 5.7 pg/mL 4.0-51.3 [facility] Comment on above: CUT-OFF POINTS HAVE BEEN [...] IN CONJUNCTIONWITH OTHER DIAGNOSTIC AND CLINICAL INFORMATION. Segmented neutrophils/100 WB C Manual cnt (Bld)on 10-05-2024 Segmented neutrophils/100 WBC (Bld) Manual blood segmented neutrophils/100 leukocytes 43.0-75.0 [facility] Serum or plasma albumin/glob ulin mass ratioon 10-05-2024 Albumin/Globulin [Mass ratio] Serum or plasma albumin/globulin mass ratio [facility] Serum or plasma anion gap de terminationon 10-05-2024 Anion gap [Moles/Vol] Serum or plasma anion gap determination [facility] Telephoneon 10-03-2024 Telephone [id number] Alissa Kumar 1945 F Date Provider Department [place] 10/03/2024 SCOTT [facility] No family history on file Normal [facility] 36on 09-27-2024 36 Normal [facility] Telephoneon 09-27-2024 Telephone [id number] Alissa Kumar 1945 F Date Provider Department [place] 09/27/2024 [facility]OTT [facility] GEORGEHeladio No family history on file [facility] CNPNon 09-26-2024 CNPN Telephone ([facility]) JENNA KUMAR ([id number]) 1945 F Date Time Provider Department 09/26/24 OLIVIA DUARTE [facility] During your visit today, we recorded [...] Encounter Status:Closed by OLIVIA DUARTE on 09/26/24 Normal [facility] ANES POSTPROC EVALon 025 ANES POSTPROC EVAL HNO ID: [id number] Author: YEE OLIVO MD Service: Critical Care Author Type: Physician Type: Anesthesia Postprocedure Evaluation Filed: 09/22/2024 08:01 Note Text: POST ANESTHESIA EVALUATION NOTE : 1945 Procedure Summary Date: 09/20/24 Room / Location: [facility] OR01A / [facility] Anesthesia Start: 1509 Anesthesia Stop: 1641 Procedures: EXCISE RECTAL TUMOR VIA TRANSANAL APPROACH [...] September 22, 2024 TIME: 8:01 AM CSN: [id number] [facility] ANES PRE-OPon 09-20-2024 ANES PRE-OP HNO ID: [id number] Author: WISAM ALVAREZ DO Service: Critical Care Author Type: Anesthesiologist Type: Anesthesia Preprocedure Evaluation Filed: 09/20/2024 13:51 Note Text: ANESTHESIOLOGY DAY OF SURGERY NOTE : 1945 Procedure Information Date/Time: 09/20/24 1350 Procedures: EXCISE RECTAL TUMOR VIA TRANSANAL APPROACH (Anus) SIGMOIDOSCOPY FLEXIBLE (Colon Sigmoid) Location: OR01A / [facility] OR Surgeons: Olivia Duarte [...] and consent discussed: yes. Patient / Responsible Libertarian agrees to proceed: yes Patient / Surrogate [...] September 20, 2024 TIME: 1:30 PM CSN: [id number] [facility] BRIEF OP NOTon 09-20-2024 BRIEF OP NOT HNO ID: [id number] Author: CINDA ABRAMS MD Service: Colorectal Author Type: Fellow Type: Brief Op Note Filed: 09/20/2024 18:02 Note Text: COLORECTAL SURGERY BRIEF OP NOTE LOG ID: [id number] Surgery/Procedure Date: 09/20/2024 Incision/Procedure Start Time: 3:20 PM Incision Close/Procedure End Time: 4:21 PM Surgeon(s) and Audience Coordinator(s): Surgeons and Role: * Olivia Duarte MD [...] 2024 TIME: 5:57 PM PAGER/CONTACT #: [facility] NURSING PROGon 09-20-2024 NURSING PROG HNO ID: [id number] Author: MARGUERITE BERRY RN Service: Nursing Author Type: Registered Nurse Type: Nursing Progress Note Filed: 09/20/2024 17:49 Note Text: Sitz Bath Written by Hilary Encinas and Juan Alberto Hanson, RN, BSN Medically Reviewed by Kiera Pride, RNC-OB on March 03, 2015 Part 1 [...] bath. The kit is available in most big-box stores and pharmacies. 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 [facility] NURSING PROG HNO ID: [id number] Author: MARGUERITE BERRY RN Service: Nursing Author [...] bath. The kit is available in most big-box stores and pharmacies. 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 [facility] OPERATIVE NOon 09-20-2024 OPERATIVE NO HNO ID: [id number] Author: OLIVIA DUARTE MD Service: Colorectal Author Type: Physician Type: Operative Report Filed: 09/23/2024 18:55 Note Text: COLON AND RECTAL SURGERY OPERATIVE REPORT PATIENT NAME: Jenna Kumar ADMISSION DATE: 09/20/2024 LOG ID: [id number] SURGERY/PROCEDURE DATE: 09/20/2024 INCISION/PROCEDURE START TIME: 3:20 PM INCISION CLOSE/PROCEDURE END TIME: 4:21 PM AGE: [age] year old SEX: female SURGEON(S)/PROCEDURALIST(S) AND PALEOLOGIST(S): Surgeons and Role: * Olivia Duarte MD [...] Surgery Division of Colon and Rectal Surgery [facility] Pathology biopsy report Avi (Tiss)on 09-20-2024 AP DISCLAIMER [facility] Comment on above: Order Comment: Speci men Type: TISSUE SPECIMEN Ordering Facility: [facility] Address: [address] [place] [address] Result Comment: Myke Torres (LDT) Disclaimer: Performance characteristics of immunohistochemical, immunofluorescent, and chromogenic in-situ hybridization tests have been determined by the performing laboratory within [facility]'s [facility] Pathology and Laboratory Medicine Department ([facility], [facility], [facility], [facility], [facility], [facility], [facility]) in a manner consistent with CLIA requirements. One or more of these tests may not have been cleared or approved by the FDA. RT-PLM is regulated under CLIA as qualified to perform high-complexity testing. These tests are used for clinical purposes. These should not be regarded as investigational or for research. Positive and negative controls stain appropriately. Performed By: #### 6 6121-5 #### [facility] CLIA [id number] [place] [address] CASE REPORT Normal [facility] Comment on above: Order Comment: Speci men Type: TISSUE SPECIMEN Ordering Facility: [facility] Address: [address] [place] [address] Result Comment: Surg ica Pathology Report Case: [id number] Authorizing Provider: Olivia Duarte MD Collected: 09/20/2024 03:54 PM Ordering Location: [facility] Received: 09/23/2024 07:07 AM Operating Room Pathologist: Golden Pemberton MD Specimen: Colon, Rectum, Resection, rectal mass Performed By: #### 6 6121-5 #### [facility] CLIA [id number] [address] [place] [address] CLINICAL HISTORY Normal [facility] Comment on above: Order Comment: Speci men Type: TISSUE SPECIMEN Ordering Facility: [facility] Address: [address] [place] [address] Result Comment: Pre- op diagnosis: Rectal polyp [K62.1] Performed By: #### 6 6121-5 #### [facility] CLIA [id number] [address] [place] [address] DIAGNOSIS COMMENT There is no evidence of invasive adenocarcinoma. 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 JEL 09/25/2024 at 1049 EDT Performed By: #### 6 6121-5 #### [facility] CLIA [id number] [address] [place] [address] [place] FINAL PERFORMING LAB Normal [facility] Comment on above: Order Comment: Speci men Type: TISSUE SPECIMEN Ordering Facility: [facility] Address: [address] [place] [address] Result Comment: Diag nostic interpretation performed at: [facility], [address] [place] [address] CLIA# [id number] Excel Developer: Andrea Campbell MD Performed By: #### 6 6121-5 #### [facility] CLIA [id number] [address] [place] [address] STATES OF [facility] GROSS DESCRIPTION Normal [facility] Comment on above: Order Comment: Speci men Type: TISSUE SPECIMEN Ordering Facility: [facility] Address: [address] [place] [address] Result Comment: Keyla decker, Rectum, Resection Received in formalin designated rectal mass are multiple fragments of castillo cobblestone to villous mucosal covered tissue aggregating to 8.8 x 4.8 x 2 cm. A definitive line of resection cannot grossly be determined. The larger segments are serially sectioned, and the specimen is totally submitted in 26 cassettes. BF September 23, 2024 8:40 AM Gross examination performed at [facility], [address] [place] [address] Performed By: #### 6 6121-5 #### [facility] CLIA [id number] [address] [place] [address] [place] OUTSIDE CYTOLOGY SLIDE REVIE Won 09-13-2024 AP DISCLAIMER Normal [facility] Comment on above: Order Comment: Speci men Type: BLOOD SPECIMEN Ordering Facility: [facility] Address: [address] [place] [address] Result Comment: Myke corona Developed Test (LDT) Disclaimer: Performance characteristics of immunohistochemical, immunofluorescent, and chromogenic in-situ hybridization tests have been determined by the performing laboratory within [facility] Pathology and Laboratory Medicine Department ([facility], [facility], [facility], [facility], [facility], [facility], or [facility]) in a manner consistent with CLIA requirements. One or more of these tests may not have been cleared or approved by the FDA. RT-PLM is regulated under CLIA as qualified to perform high-complexity testing. These tests are used for clinical purposes. These should not be regarded as investigational or for research. Positive and negative controls stain appropriately. Performed By: #### 5 7021-8 #### [facility] CLIA [id number] [address] [place] [address] [place] CASE REPORT Normal [facility] Comment on above: Order Comment: Speci men Type: BLOOD SPECIMEN Ordering Facility: [facility] Address: [address] [place] [address] Result Comment: [facility] Cytology Report Case: [id number] Authorizing Provider: Hugo Taylor MD Collected: 09/13/2024 08:12 PM Ordering Location: [facility] Received: 09/13/2024 08:11 PM [facility] Pathologist: Hermelinda Nathan MD Specimens: A) - Slide(s), HEPATIC DUCT, BRUSHING, 2 OUTSIDE SLIDES, ([id number]), 06/28/2024 B) - Slide(s), LYMPH NODE, PARADUODENAL, FINE NEEDLE ASPIRATION, 5 OUTSIDE SLIDES, ([id number]), 06/28/2024 C) - Slide(s), LIVER, FINE NEEDLE ASPIRATION, 9 OUTSIDE SLIDES, ([id number]), 06/28/2024 Performed By: #### 5 7021-8 #### [facility] CLIA [id number] [address] [place] [address] [place] DIAGNOSIS COMMENT C. See surgical path ology report [id number] for additional information including results of immunohistochemical stains. Dr. Alcides Gaona has reviewed this case and agrees with the above interpretation. Normal [facility] Comment on above: Order Comment: Speci men Type: BLOOD SPECIMEN Ordering Facility: [facility] Address: [address] [place] [address] Performed By: #### 5 7021-8 #### [facility] CLIA [id number] [address] [place] [address] FINAL DIAGNOSIS Normal [facility] Comment on above: Order Comment: Speci men Type: BLOOD SPECIMEN Ordering Facility: [facility] Address: [address] [place] [address] Result Comment: A - Slide(s) - HEPATIC DUCT, BRUSHING, 2 OUTSIDE SLIDES, ([id number]), 06/28/2024 Atypical cells present. B - Slide(s) - LYMPH NODE, PARADUODENAL, FINE NEEDLE ASPIRATION, 5 OUTSIDE SLIDES, ([id number]), 06/28/2024 Atypical cells present. C - Slide(s) - LIVER, FINE NEEDLE ASPIRATION, 9 OUTSIDE SLIDES, ([id number]), 06/28/2024 Neoplastic cells present. See comment. at 1034 EDT Performed By: #### 5 7021-8 #### [facility] CLIA [id number] [address] [place] [address] OF [facility] FINAL PERFORMING LAB Normal [facility] Comment on above: Order Comment: Speci men Type: BLOOD SPECIMEN Ordering Facility: [facility] Address: [address] [place] [address] Result Comment: Tech nical component, skilled nursing facilities professional screening performed at: [facility], [address] [place] [address] CLIA: [id number] Diagnostic interpretation performed at: [facility], [address] [place] [address] CLIA# [id number] Excel Developer: Nilson Galvez MD Performed By: #### 5 7021-8 #### [facility] CLIA [id number] [address] [place] [address] [place] OUTSIDE SURG PATH SLIDE REVI EWon 09-13-2024 AP DISCLAIMER Normal [facility] Comment on above: Order Comment: Speci men Type: BLOOD SPECIMEN Ordering Facility: [facility] Address: [address] [place] [address] Result Comment: Myke corona Developed Test (LDT) Disclaimer: Performance characteristics of immunohistochemical, immunofluorescent, and chromogenic in-situ hybridization tests have been determined by the performing laboratory within [facility]'s [facility] Pathology and Laboratory Medicine Department ([facility], [facility], [facility], [facility], [facility], [facility], or [facility]) in a manner consistent with CLIA requirements. One or more of these tests may not have been cleared or approved by the FDA. RT-PLM is regulated under CLIA as qualified to perform high-complexity testing. These tests are used for clinical purposes. These should not be regarded as investigational or for research. Positive and negative controls stain appropriately. Performed By: #### 5 7021-8 #### [facility] CLIA [id number] [address] [place] [address] [place] CASE REPORT Normal [facility] Comment on above: Order Comment: Speci men Type: BLOOD SPECIMEN Ordering Facility: [facility] Address: [address] [place] [address] Result Comment: Surg ical Pathology Report Case: [id number] Authorizing Provider: Hugo Taylor MD Collected: 09/13/2024 08:05 PM Ordering Location: [facility] Received: 09/13/2024 08:05 PM [facility] Pathologist: Sharri Goff MD Specimen: Slide(s), 6 SLIDES [id number] Performed By: #### 5 7021-8 #### [facility] CLIA [id number] [address] [place] [address] [facility] [place] DIAGNOSIS COMMENT Immunohistochemical stains were performed at [facility] on outside block [id number] (A1) and show that the tumor cells are positive for MOC-31 and CK AE1/AE3, while negative for synaptophysin and INSM1. The Ki-67 proliferation index is high. The overall morphologic and immunophenotypic findings seen on part a are compatible with adenocarcinoma. There are fragments of a detached tubular component. Part A was reviewed with Dr. Gaitan and Dr. Norris, who concur. Normal [facility] Comment on above: Order Comment: Speci men Type: BLOOD SPECIMEN Ordering Facility: [facility] Address: [address] [place] [address] Performed By: #### 5 7021-8 #### [facility] CLIA [id number] [address] [place] [address] FINAL DIAGNOSIS Normal [facility] Comment on above: Order Comment: Speci men Type: BLOOD SPECIMEN Ordering Facility: [facility] Address: [address] [place] [address] Result Comment: [facility], [place], [place]; S20 [phone] (06/28/2024) A. 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 at 1016 EDT Performed By: #### 5 7021-8 #### [facility] CLIA [id number] [address] [place] [address] FINAL PERFORMING LAB Normal [facility] Comment on above: Order Comment: Speci men Type: BLOOD SPECIMEN Ordering Facility: [facility] Address: [address] [place] [address] Result Comment: Diag nostic interpretation performed at: [facility], [address] [place] [address] CLIA# [id number] Excel Developer: Nilson Galvez MD Performed By: #### 5 7021-8 #### [facility] CLIA [id number] [address] [place] [address] [place] Basophils Auto (Bld) [#/Vol] on 09-12-2024 Basophils (Bld) [#/Vol] Automated basophil count High <0.11 [facility] Basophils/100 WBC Auto (Bld) on 09-12-2024 Basophils/100 WBC (Bld) Automated basophil % [facility] Blood manual differential co mment interpretation narrativeon 09-12-2024 Manual differential comment Avi (Bld) [Interp] Blood manual differential comment interpretation narrative [facility] CBC W Auto Differential pane l (Bld)on 09-12-2024 Basophils (Bld) [#/Vol] 0.17 10*3/uL High <0.11 [facility] Comment on above: Order Comment: Speci men Type: BLOOD SPECIMEN Ordering Facility: [facility] Address: [address] [place] [address] Performed By: #### 5 7021-8 #### [facility] CLIA [id number] [address] [place] [address] [place] Basophils/100 WBC (Bld) 1.0 % Normal [facility] Comment on above: Order Comment: Speci men Type: BLOOD SPECIMEN Ordering Facility: [facility] Address: [address] [place] [address] Performed By: #### 5 7021-8 #### [facility] CLIA [id number] [address] [place] [address] [place] Differential cell count method Nom (Bld) Manual Normal [facility] Comment on above: Order Comment: Speci men Type: BLOOD SPECIMEN Ordering Facility: [facility] Address: [address] [place] [address] Performed By: #### 5 7021-8 #### [facility] CLIA [id number] [address] [place] [address] [place] Eosinophils (Bld) [#/Vol] 0.34 10*3/uL Normal <0.46 [facility] Comment on above: Order Comment: Speci men Type: BLOOD SPECIMEN Ordering Facility: [facility] Address: [address] [place] [address] Performed By: #### 5 7021-8 #### [facility] CLIA [id number] [address] [place] [address] [place] Eosinophils/100 WBC (Bld) 2.0 % Normal [facility] Comment on above: Order Comment: Speci men Type: BLOOD SPECIMEN Ordering Facility: [facility] Address: [address] [place] [address] Performed By: #### 5 7021-8 #### [facility] CLIA [id number] [address] [place] [address] [place] Erythrocyte distribution width (RBC) [Ratio] 13.2 % Normal 11.5-15.0 [facility] Comment on above: Order Comment: Speci men Type: BLOOD SPECIMEN Ordering Facility: [facility] Address: [address] [place] [address] Performed By: #### 5 7021-8 #### [facility] CLIA [id number] [address] [place] [address] [place] Hematocrit (Bld) [Volume fraction] 48.1 % High 36.0-46.0 [facility] Comment on above: Order Comment: Speci men Type: BLOOD SPECIMEN Ordering Facility: [facility] Address: [address] [place] [address] Performed By: #### 5 7021-8 #### [facility] CLIA [id number] [address] [place] [address] [place] Hemoglobin (Bld) [Mass/Vol] 15.1 g/dL Normal 11.5-15.5 [facility] Comment on above: Order Comment: Speci men Type: BLOOD SPECIMEN Ordering Facility: [facility] Address: [address] [place] [address] Performed By: #### 5 7021-8 #### [facility] CLIA [id number] [address] [place] [address] [place] Lymphocytes (Bld) [#/Vol] 4.95 10*3/uL High 1.00-4.00 [facility] Comment on above: Order Comment: Speci men Type: BLOOD SPECIMEN Ordering Facility: [facility] Address: [address] [place] [address] Performed By: #### 5 7021-8 #### [facility] CLIA [id number] [address] [place] [address] [place] Lymphocytes/100 WBC (Bld) 29.0 % Normal [facility] Comment on above: Order Comment: Speci men Type: BLOOD SPECIMEN Ordering Facility: [facility] Address: [address] [place] [address] Performed By: #### 5 7021-8 #### [facility] CLIA [id number] [address] [place] [address] [place] MCH (RBC) [Entitic mass] 27.5 pg Normal 26.0-34.0 [facility] Comment on above: Order Comment: Speci men Type: BLOOD SPECIMEN Ordering Facility: [facility] Address: [address] [place] [address] Performed By: #### 5 7021-8 #### [facility] CLIA [id number] [address] [place] [address] [place] MCHC (RBC) [Mass/Vol] 31.4 g/dL Normal 30.5-36.0 [facility] Comment on above: Order Comment: Speci men Type: BLOOD SPECIMEN Ordering Facility: [facility] Address: [address] [place] [address] Performed By: #### 5 7021-8 #### [facility] CLIA [id number] [address] [place] [address] [place] MCV (RBC) [Entitic vol] 87.5 fL Normal 80.0-100.0 [facility] Comment on above: Order Comment: Speci men Type: BLOOD SPECIMEN Ordering Facility: [facility] Address: [address] [place] [address] Performed By: #### 5 7021-8 #### [facility] CLIA [id number] [address] [place] [address] [place] Monocytes (Bld) [#/Vol] 1.02 10*3/uL High <0.87 [facility] Comment on above: Order Comment: Speci men Type: BLOOD SPECIMEN Ordering Facility: [facility] Address: [address] [place] [address] Performed By: #### 5 7021-8 #### [facility] CLIA [id number] [address] [place] [address] [place] Monocytes/100 WBC (Bld) 6.0 % Normal [facility] Comment on above: Order Comment: Speci men Type: BLOOD SPECIMEN Ordering Facility: [facility] Address: [address] [place] [address] Performed By: #### 5 7021-8 #### [facility] CLIA [id number] [address] [place] [address] [place] Neutrophils (Bld) [#/Vol] 10.58 10*3/uL High 1.45-7.50 [facility] Comment on above: Order Comment: Speci men Type: BLOOD SPECIMEN Ordering Facility: [facility] Address: [address] [place] [address] Performed By: #### 5 7021-8 #### [facility] CLIA [id number] [address] [place] [address] [place] Neutrophils/100 WBC (Bld) 62.0 % Normal [facility] Comment on above: Order Comment: Speci men Type: BLOOD SPECIMEN Ordering Facility: [facility] Address: [address] [place] [address] Performed By: #### 5 7021-8 #### [facility] CLIA [id number] [address] [place] [address] [place] Nucleated RBC (Bld) [#/Vol] 10*3/uL Normal <0.01 [facility] Comment on above: Order Comment: Speci men Type: BLOOD SPECIMEN Ordering Facility: [facility] Address: [address] [place] [address] Performed By: #### 5 7021-8 #### [facility] CLIA [id number] [address] [place] [address] [place] Nucleated RBC/100 WBC (Bld) [Ratio] 0.0 /100 WBC Normal [facility] Comment on above: Order Comment: Speci men Type: BLOOD SPECIMEN Ordering Facility: [facility] Address: [address] [place] [address] Performed By: #### 5 7021-8 #### [facility] CLIA [id number] [address] [place] [address] [place] Platelet mean volume (Bld) [Entitic vol] 12.3 fL Normal 9.0-12.7 [facility] Comment on above: Order Comment: Speci men Type: BLOOD SPECIMEN Ordering Facility: [facility] Address: [address] [place] [address] Performed By: #### 5 7021-8 #### [facility] CLIA [id number] [address] [place] [address] [place] Platelets (Bld) [#/Vol] 443 10*3/uL High 150-400 [facility] Comment on above: Order Comment: Speci men Type: BLOOD SPECIMEN Ordering Facility: [facility] Address: [address] [place] [address] Performed By: #### 5 7021-8 #### [facility] CLIA [id number] [address] [id number] [place] Platelets Estimate (Bld) [#/Vol] Increased Normal [facility] Comment on above: Order Comment: Speci men Type: BLOOD SPECIMEN Ordering Facility: [facility] Address: [address] [place] [address] Performed By: #### 5 7021-8 #### [facility] CLIA [id number] [address] [place] [address] [place] RBC (Bld) [#/Vol] 5.50 10*6/uL High 3.90-5.[address] [facility] Comment on above: Order Comment: Speci men Type: BLOOD SPECIMEN Ordering Facility: [facility] Address: [address] [place] [address] Performed By: #### 5 7021-8 #### [facility] CLIA [id number] [address] [place] [address] [place] RED CELL MORPH Reviewed: unremarkable Normal [facility] Comment on above: Order Comment: Speci men Type: BLOOD SPECIMEN Ordering Facility: [facility] Address: [address] [place] [address] Performed By: #### 5 7021-8 #### [facility] CLIA [id number] [address] [place] [address] [place] WBC (Bld) [#/Vol] 17.06 10*3/uL High 3.70-11.00 [facility] Comment on above: Order Comment: Speci men Type: BLOOD SPECIMEN Ordering Facility: [facility] Address: [address] [place] [address] Performed By: #### 5 7021-8 #### [facility] CLIA [id number] [address] [place] [address] [place] Comprehensive metabolic 2000 panelon 09-12-2024 Albumin [Mass/Vol] 3.7 g/dL Low 3.9-4.9 [facility] Comment on above: Order Comment: Speci men Type: BLOOD SPECIMEN Ordering Facility: [facility] Address: [address] [place], [place] [id number] Performed By: #### 5 7021-8 #### [facility] CLIA [id number] [address] [place], [place] [address] [place] ALP [Catalytic activity/Vol] 844 U/L High 34-123 [facility] Comment on above: Order Comment: Speci men Type: BLOOD SPECIMEN Ordering Facility: [facility] Address: [address] [place] [address] Performed By: #### 5 7021-8 #### [facility] CLIA [id number] [address] [place], [place] [address] [place] ALT [Catalytic activity/Vol] 71 U/L High 7-38 [facility] Comment on above: Order Comment: Speci men Type: BLOOD SPECIMEN Ordering Facility: [facility] Address: [address] [place] [address] Performed By: #### 5 7021-8 #### [facility] CLIA [id number] [address] [place], [place] [address] [place] Anion gap [Moles/Vol] 11 mmol/L Normal 8-15 [facility] Comment on above: Order Comment: Speci men Type: BLOOD SPECIMEN Ordering Facility: [facility] Address: [address] [place] [address] Performed By: #### 5 7021-8 #### [facility] CLIA [id number] [address] [place] [address] [place] AST [Catalytic activity/Vol] 91 U/L High 13-35 [facility] Comment on above: Order Comment: Speci men Type: BLOOD SPECIMEN Ordering Facility: [facility] Address: [address] [place], [place] [address] Performed By: #### 5 7021-8 #### [facility] CLIA [id number] [address] [place] [address] [place] Bilirubin [Mass/Vol] 0.9 mg/dL Normal 0.2-1.3 [facility] Comment on above: Order Comment: Speci men Type: BLOOD SPECIMEN Ordering Facility: [facility] Address: [address] [place] [address] Performed By: #### 5 7021-8 #### [facility] CLIA [id number] [address] [place] [address] [place] Calcium [Mass/Vol] 10.2 mg/dL Normal 8.5-10.2 [facility] Comment on above: Order Comment: Speci men Type: BLOOD SPECIMEN Ordering Facility: [facility] Address: [address] [place] [address] Performed By: #### 5 7021-8 #### [facility] CLIA [id number] [address] [place] [address] [place] Chloride [Moles/Vol] 98 mmol/L Normal 98-107 [facility] Comment on above: Order Comment: Speci men Type: BLOOD SPECIMEN Ordering Facility: [facility] Address: [address] [place] [address] Performed By: #### 5 7021-8 #### [facility] CLIA [id number] [address] [place] [address] [place] CO2 [Moles/Vol] 25 mmol/L Normal 22-30 [facility] Comment on above: Order Comment: Speci men Type: BLOOD SPECIMEN Ordering Facility: [facility] Address: [address] [place] [address] Performed By: #### 5 7021-8 #### [facility] CLIA [id number] [address] [place] [address] [place] Creatinine [Mass/Vol] 0.70 mg/dL Normal 0.58-0.96 [facility] Comment on above: Order Comment: Speci men Type: BLOOD SPECIMEN Ordering Facility: [facility] Address: [address] [place] [address] Performed By: #### 5 7021-8 #### [facility] CLIA [id number] [address] [place] [address] [place] Creatinine and Glomerular filtration rate.predicted panel (S/P/Bld) 87 mL/min/1.73m??? Normal >=60 [facility] Comment on above: Order Comment: Nael mike Type: BLOOD SPECIMEN Ordering Facility: [facility] Address: [address] [place] [address] Result Comment: Henrietta mated Glomerular Filtration Rate [...] accurately reflect actual GFR. Performed By: #### 5 7021-8 #### [facility] CLIA [id number] [address] [place] [address] [place] Glucose [Mass/Vol] 78 mg/dL Normal 74-99 [facility] Comment on above: Order Comment: Nael mike Type: BLOOD SPECIMEN Ordering Facility: [facility] Address: [address] [place] [address] Result Comment: The [place] Diabetes Association (ADA) provides guidance for cutoff [...] Standards of Medical Care in Diabetes 2016, [place] Diabetes Association. Diabetes Care. 2016.39(Suppl 1). Performed By: #### 5 7021-8 #### [facility] CLIA [id number] [address] [place] [address] [place] Potassium [Moles/Vol] 4.6 mmol/L Normal 3.7-5.1 [facility] Comment on above: Order Comment: Speci men Type: BLOOD SPECIMEN Ordering Facility: [facility] Address: [address] [place] [address] Performed By: #### 5 7021-8 #### [facility] CLIA [id number] [address] [place] [address] [place] Protein [Mass/Vol] 7.7 g/dL Normal 6.3-8.0 [facility] Comment on above: Order Comment: Speci men Type: BLOOD SPECIMEN Ordering Facility: [facility] Address: [address] [place] [address] Performed By: #### 5 7021-8 #### [facility] CLIA [id number] [address] [place] [address] [place] Sodium [Moles/Vol] 134 mmol/L Low 136-144 [facility] Comment on above: Order Comment: Speci men Type: BLOOD SPECIMEN Ordering Facility: [facility] Address: [address] [place] [address] Performed By: #### 5 7021-8 #### [facility] CLIA [id number] [address] [place] [address] [place] Urea nitrogen [Mass/Vol] 14 mg/dL Normal 7-21 [facility] Comment on above: Order Comment: Speci men Type: BLOOD SPECIMEN Ordering Facility: [facility] Address: [address] [place] [address] Performed By: #### 5 7021-8 #### [facility] CLIA [id number] [address] [place] [address] [place] Eosinophils/100 WBC Auto (Bl d)on 09-12-2024 Eosinophils/100 WBC (Bld) Automated eosinophil % [facility] Erythrocyte distribution wid th Auto (RBC) [Ratio]on 09-12-2024 Erythrocyte distribution width (RBC) [Ratio] Erythrocyte distribution width [Ratio] by Automated count 11.5-15.0 [facility] HISTORY PHYSICALon HISTORY PHYSICAL HNO ID: [id number] Author: LUCY ARREAGA PA-C Service: ? Author Type: Physician Audience Coordinator Type: H&P Filed: 09/13/2024 15:31 Note Text: [...] Lymph 1.00 - 4.00 k/uL 4.76 Abs [place] <0.87 k/uL 1.32 Abs Eosin <0.46 k/uL [...] large neck Non-male patient STOP-Bang Score: 2 [id number] Score: Age: >=75 Sex: female CHF history: No Hypertension history: Yes Stroke/TIA/thromboembolism history: No Vascular disease history: No Diabetes history: No [id number] Score: 4 I - PHYSICAL EVALUATION AIRWAY Patient intubated: No. Tracheostomy tube not present Mallampati: III. TM distance: >3 FB. Neck ROM: full ROM without neurological symptoms. Mouth opening: adequate. Short neck: no. Thick neck: no Lip Bite Test: II Microretrognathia/Micronagthia /Recessed Chin: No DENTAL Dental findings: teeth intact. [...] Pvc's (Premature Ventricular Contractions) COVID-19 Immunization Status C (more content not included)... Normal [facility] Hematocrit Auto (Bld) [Volum e fraction]on 09-12-2024 Hematocrit (Bld) [Volume fraction] Hematocrit [Volume Fraction] of Blood by Automated count High 36.0-46.0 [facility] Hemoglobin [Mass/volume] in Bloodon 09-12-2024 Hemoglobin (Bld) [Mass/Vol] Hemoglobin [Mass/volume] in Blood 11.5-15.5 [facility] Laboratory - Chemistry and C hemistry - challengeon 09-12-2024 Albumin [Mass/Vol] 3.7 g/dL Low 3.9-4.9 [facility] ALP [Catalytic activity/Vol] 844 U/L High 34-123 [facility] ALT [Catalytic activity/Vol] 71 U/L High 7-38 [facility] AST [Catalytic activity/Vol] 91 U/L High 13-35 [facility] Bilirubin [Mass/Vol] 0.9 mg/dL 0.2-1.3 [facility] Calcium [Mass/Vol] 10.2 mg/dL 8.5-10.2 [facility] Chloride [Moles/Vol] 98 mmol/L 98-107 [facility] CO2 [Moles/Vol] 25 mmol/L 22-30 [facility] Creatinine [Mass/Vol] 0.70 mg/dL 0.58-0.96 [facility] Glucose [Mass/Vol] 78 mg/dL 74-99 [facility] Comment on above: The [place] Diabete s Association (ADA) provides guidance for cutoff values for fasting glucose and random glucose. The ADA defines fasting as no caloric intake for at least 8 hours. Fasting plasma glucose results between 100 to 125 mg/dL indicate increased risk for diabetes (prediabetes).Fasting plasma glucose results greater than or equal to 126 mg/dL meet the criteria for diagnosis of diabetes. In the absence of unequivocal hyperglycemia, results should be confirmed by repeat testing. In a patient with classic symptoms of hyperglycemia or hyperglycemic crisis, random plasma glucose results greater than or equal to 200 mg/dL meet the criteria for diagnosis of diabetes.Reference: Standards of Medical Care in Diabetes 2016, [place] Diabetes Association. Diabetes Care. 2016.39(Suppl 1). Potassium [Moles/Vol] 4.6 mmol/L 3.7-5.1 [facility] Sodium [Moles/Vol] 134 mmol/L Low 136-144 [facility] Urea nitrogen [Mass/Vol] 14 mg/dL 7-21 [facility] Laboratory - Hematology and Cell countson 09-12-2024 Eosinophils (Bld) [#/Vol] 0.34 10*3/uL <0.46 [facility] Leukocytes [#/volume] correc saleem for nucleated erythrocytes in Blood by Automated counon 09-12-2024 WBC corrected for nucl RBC Auto (Bld) [#/Vol] Leukocytes [#/volume] corrected for nucleated erythrocytes in Blood by Automated coun High 3.70-11.00 [facility] Lymphocytes Auto (Bld) [#/Vo l]on 09-12-2024 Lymphocytes (Bld) [#/Vol] Lymphocytes [#/volume] in Blood by Automated count High 1.00-4.00 [facility] Lymphocytes/100 WBC Auto (Bl d)on 09-12-2024 Lymphocytes/100 WBC (Bld) Lymphocytes/100 leukocytes in Blood by Automated count [facility] MCH Auto (RBC) [Entitic mass ]on 09-12-2024 MCH (RBC) [Entitic mass] MCH [Entitic mass] by Automated count 26.0-34.0 [facility] MCHC Auto (RBC) [Mass/Vol]on 09-12-2024 MCHC (RBC) [Mass/Vol] MCHC [Mass/volume] by Automated count 30.5-36.0 [facility] MCV Auto (RBC) [Entitic vol] on 09-12-2024 MCV (RBC) [Entitic vol] MCV [Entitic volume] by Automated count 80.0-100.0 [facility] Monocytes Auto (Bld) [#/Vol] on 09-12-2024 Monocytes (Bld) [#/Vol] Automated blood monocyte count High <0.87 [facility] Monocytes/100 WBC Auto (Bld) on 09-12-2024 Monocytes/100 WBC (Bld) Automated monocyte % [facility] Neutrophils Auto (Bld) [#/Vo l]on 09-12-2024 Neutrophils (Bld) [#/Vol] Neutrophils [#/volume] in Blood by Automated count High 1.45-7.50 [facility] Neutrophils/100 WBC Auto (Bl d)on 09-12-2024 Neutrophils/100 WBC (Bld) Automated neutrophil % [facility] No Panel Informationon 09-12 Estimated GFR (CKD-EPI) 87 mL/min/1.73m??? >=60 [facility] Comment on above: Estimated Glomerular Filtration Rate (eGFR) is calculated using the 2020 CKD-EPI creatinine equation. This equation utilizes serum creatinine, sex, and age as parameters. The creatinine assay has traceable calibration to isotope dilution-mass spectrometry. Refer to KDIGO guidelines for clinical interpretation. In patients with unstable renal function, e.g. those with acute kidney injury, the eGFR may not accurately reflect actual GFR. Normal RBC Morphology Reviewed: unremarkable [facility] Nucleated RBC Auto (Bld) [#/ Vol]on 09-12-2024 Nucleated RBC (Bld) [#/Vol] Nucleated erythrocytes [#/volume] in Blood by Automated count <0.01 [facility] Nucleated erythrocytes [Pres ence] in Blood by Automated counton 09-12-2024 Nucleated RBC Auto Ql (Bld) Nucleated erythrocytes [Presence] in Blood by Automated count [facility] Platelet adequacy [Presence] in Blood by Light microscopyon 09-12-2024 Platelets LM Ql (Bld) Platelet adequacy [Presence] in Blood by Light microscopy [facility] Platelet mean volume Auto (B ld) [Entitic vol]on 09-12-2024 Platelet mean volume (Bld) [Entitic vol] Platelet mean volume [Entitic volume] in Blood by Automated count 9.0-12.7 [facility] Platelets Auto (Bld) [#/Vol] on 09-12-2024 Platelets (Bld) [#/Vol] Platelets [#/volume] in Blood by Automated count High 150-400 [facility] Protein [Mass/volume] in Ser um or Plasmaon 09-12-2024 Protein [Mass/Vol] Protein [Mass/volume ] in Serum or Plasma 6.3-8.0 [facility] RBC Auto (Bld) [#/Vol]on RBC (Bld) [#/Vol] Erythrocytes [#/volu me] in Blood by Automated count High 3.90-5.20 [facility] Serum or plasma anion gap de terminationon 09-12-2024 Anion gap [Moles/Vol] Serum or plasma anion gap determination 8-15 [facility] CNPNon 09-11-2024 CNPN Telephone (DDQ) JENNA KUMAR ([id number]) 1945 F Date Time Provider Department 09/11/24 OLIVIA DUARTE DDQ During your visit today, we recorded the following information about you: Vickie Morales, BRIANNA 09/11/2024 2:37 PM Signed Pt stated she [...] She routinely gets biliary drains placed/exchanged in [place] for her liver disorder however under the guidance of Dr Taylor here in [place]. She wishes to have her next drain [...] biopsy of liver (H*08/04/2024 Encounter Status:Closed by NAZ WALL on 09/11/24 Normal [facility] CNOVon 09-09-2024 CNOV Office Visit ([id number] ) JENNA KUMAR ([id number]) 1945 F Date Time Provider Department 09/09/24 2:00 PM HUGO TAYLOR [id number] During your visit today, we recorded the following information about you: Temperature Pulse Blood pressure Weight 97 degrees 49/minute 166/78 60 kg Height 1.626 m Bonny Mora MA 09/09/2024 2:48 PM Signed What is the reason for your visit today? Consult IH cholangiocarcinoma Who is your referring physician? Dr Alexis Are you having poor oral intake? NO Have you had unintentional weight loss of 15 lbs/7 Kg in the last 3-6 months? NO Bowels: regular Wound: Temperature: No Drains: No Genie Osorio, RN 09/09/2024 2:48 PM Signed New/Est pt: New [...] 40 mg by mouth. (Patient not taking: Repo (more content not included)... Normal [facility] HISTORY PHYSICALon HISTORY PHYSICAL HNO ID: [id number] Author: HUGO TAYLOR MD Service: ? Author [...] requiring medication, no history of angina, CHF, SC, cardiac surgery or stents. Denies rest pain, [...] No PHYSICAL EXAMINATION BP 166/78[did not take medi (more content not included)... Normal [facility] CNPNon 09-06-2024 CNPN Telephone ([facility]) JENNA KUMAR ([id number]) 1945 F Date Time Provider Department 09/06/24 OLIVIA DUARTE [facility] During your visit today, we recorded the following information about you: Juan Alberto Ruano RN 09/06/2024 11:10 AM Signed Received call yesterday from [facility] saying that patient was refusing to have [facility]ACC done stating she recently had procedures done in [place] and she was fine. In the meantime, Dr. Duarte decided she also wants to do a sigmoidoscopy at the same time and TAE so the patient will need to be moved to [facility] instead of [facility]. Called and spoke with patient. Explained reasons [...] Status:Closed by JUAN ALBERTO RUANO on 09/06/24 [facility] CNOVon 09-05-2024 CNOV Office Visit ([facility] ) JENNA KUMAR ([id number]) 1945 F Date Time Provider Department 09/05/24 1:20 PM OLIVIA DUARTE [facility] During your visit today, we recorded [...] for internal providers or letter via the [employer] for external providers. Chief Complaint: [...] of a walker. MRI lumbar spine - [facility] - MRI [ID [id number]] -No evidence for osseous metastasis PAST MEDICAL [...] rectal exam reveals no other palpable mass Fringe Maker present: Yes The sensitive examination was discussed with the Patient or Patient's Authorized Brick Layer. As applicable, any other physician, advance practice provider, medical student, (more content not included)... Normal [facility] Ezequiel 08-26-2024 [facility] Telephone ([facility]) JENNA KUMAR ([id number]) 1945 F Date Time Provider Department 08/26/24 [...] please watch for MRI Liver results MARTI Aguilera, Zoie Goddard 08/30/2024 11:45 AM Signed Spoke with Davina at [facility]. She said report had not been read yet, but she would let the radiologist know we were looking for the report so it would get bumped up on the list to be read. Delisa Alcazar RN 09/02/2024 12:06 PM Signed [facility] will reach out to radiologist to request read/final report for appt 08/[address] Duarte. MARTI Aguilera, Zoie Goddard 09/03/2024 8:06 AM Signed Report scanned. Let me know if you want the images. Delisa Alcazar RN 09/03/2024 9:27 AM Signed Naya: Please obtain images MARTI Aguilera, Zoie Goddard 09/03/2024 9:51 AM Signed Images [...] Date Reviewed: 08/19/2024 Reviewed by: Davina Hopkins APRN.SAFETY BELT INSTALLER - Fully Assessed Reason for Visit: Results [95] Primary Visit Diagnosis:Liver mass [R16.0] Order(s):CONSULT TO GENERAL SURGERY [9011] Order #: [id number]: 1 FUTURE Prescriptions as of 09/13/2024 - [...] Encounter Status:Closed by MAGDALENO HIGGINS on 09/05/24 Normal [facility] Telephoneon 08-21-2024 Telephone [id number] Alissa Kumar 1945 F Date Provider Department Center 08/21/2024 [facility] SATISH No family history on file Normal [facility] CNPNon 08-20-2024 CNPN Telephone ([facility]) JENNA KUMAR Mick ([id number]) 1945 F Date Time Provider Department 08/20/24 [...] Date Reviewed: 08/19/2024 Reviewed by: Davina Hopkins APRN.SAFETY BELT INSTALLER - Fully Assessed Reason for Visit: Patient [...] Encounter Status:Closed by ASHLEY ADKINS on 08/20/24 Normal [facility] CNPNon 08-19-2024 [facility] Telephone ([facility]) JENNA KUMAR ([id number]) 1945 F Date Time Provider Department 08/19/24 DELISA ALCAZAR HEMRADHA During your visit today, we recorded the following information about you: Delisa Alcazar RN 08/19/2024 11:01 AM Signed Pt c/o nausea/loss of appetite. She has an appt 08/22, but symptoms cannot wait. Jose: please advise: Zofran pended to preferred pharmacy, if agreeable MARTI Aguilera Natalie, RN 08/19/2024 11:01 AM Signed Naya: Please obtain MRI reports/imaging from [facility] (pt was scheduled 08/12/24) [facility]/19/2024 11:23 AM Signed MRI report scanned. [...] improved with Zofran. Liver MRI completed at [facility] also. Naya: Please obtain and send to Jose for review [facility], Zoie Goddard 08/20/2024 10:59 AM Signed No MRI Liver done at [facility]. Delisa Alcazar RN 08/20/2024 1:17 PM Signed Called [facility] to verify No MRI liver completed. Jose: I do not see an order placed/ pended for review and sign MARTI Aguilera Natalie, RN 08/20/2024 1:17 PM Signed Addended by: DELISA ALCAZAR on: 08/20/2024 01:17 PM Modules accepted: Orders Reuben Angela MD 08/20/2024 1:20 PM Signed I'd like it to be done with eovist. - I don't know if they have that at [facility]. Reuben Angela MD 08/20/2024 1:20 PM Signed Addended by: REUBEN ANGELA on: 08/20/2024 01:20 PM Modules accepted: Delisa Walker RN 08/20/2024 1:30 PM Signed Pt notified of need still for MRI liver. She is agreeable to proceed, but isn't happy is was not completed previously. Order faxed to [facility] for authorization/scheduling. Jose: Proceed with telephone visit 08/22 or postpone until MRI completed? MARTI Aguilera Natalie, RN 08/20/2024 1:55 PM Signed Called to [facility] scheduling to verify receipt of MRI orders. Mohsen will call pt to schedule mid week, next week. Will verify appt with pt when I call her back with Jose's appt response. MARTI Aguilera Natalie, MARTI 08/21/2024 8:01 AM Signed Jose: Please review and sign pended order PSS: Please refer to colorectal surgery, [facility] at [place] please MARTI Aguilera Natalie, RN 08/21/2024 8:02 AM Signed Addended by: DELISA ALCAZAR on: 08/21/2024 08:02 AM Modules accepted: Orders Carina Oskar 08/21/2024 9:25 AM Signed HI there, This patient needs to see [facility] for a consult. Can you please help us with this? Thank you Delisa Alcazar RN 08/21/2024 12:37 PM Signed Called and discussed importance of proceeding with colorectal, as Dr Garcia ordered. Pt is now agreeable and will call to set up (she was given number by colorectal scheduling team). Liver MRI to be completed Saturday 08/26 at [facility]. Delisa Alcazar RN Colorectal scheduling team: please verify pt calls to set up appt. Thank you! Delisa Alcazar RN 08/22/2024 9:49 AM Signed Please sign pended Colorectal referral order MARTI Aguilera Vivek, MD 08/22/2024 12:09 PM Signed Signed thank you Reuben Angela MD 08/22/2024 12:09 PM Signed Addended by: REUBEN ANGELA on: 08/22/2024 12:09 PM Modules accepted: Delisa Walker RN 08/22/2024 12:12 PM Signed Pt scheduled 09/05/[address] Duarte. 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 [facility] ([id number]) 1945 F Date Time Provider Department 08/19/24 ASHLEY ADKINS During your visit today, we recorded the following information about you: Ashley Adkins, MARTI 08/19/2024 4:18 PM Signed Pt reports she received a bill for a medication called liquid cdx . Informed pt that [facility] liquid CDX is a blood test and not a medication. Explained to pt that what she received was not a bill, but likely an EOB. Went on to explain she would be contacted directly by [facility] if her OOP expense is greater than $100. Informed pt that the test results will be used per Dr Angela as part of her treatment planning. Pt verbalizes understanding. No additional questions noted. Ashley Adkins RN Allergies As of Date: 08/19/2024 Noted Allergy Reaction PENICILLINS 06/28/2024 4 - Hives SULFADIAZINE 06/28/2024 4 - Hives Date Reviewed: 08/19/2024 Reviewed by: Davina Hopkins APRN.SA[employer]Y [employer]T INSTALLER - Fully Assessed Reason for Visit: Orders [...] Encounter Status:Closed by ASHLEY ADKINS on 08/19/24 Normal [facility] [id number] 08-13-2024 [id number] Normal [facility] ANESon 08-13-2024 ANES Normal [facility] ANES Normal [facility] HPon 08-13-2024 HP H&P reviewed. The helen win was examined and there are no changes to the H&P. The patient with history of Kl[place] tumor, status post ERCP with biliary stent placement. The patient is presenting today for ERCP for stents replacement. Normal [facility] POCT GLUCOSE METER UNSOLICIT ED RESULTSon 08-13-2024 Glucose [Mass/Vol] 87 mg/dL Normal 70-105 [facility] Comment on above: Order Comment: Waive d Testing in the ED is performed under the ED CLIA certificate #[id number]. Result Comment: ltol les Performed By: #### L [id number] ####[facility] ([facility])[address] [place] [address] Prep for Procedureon 025 Prep for Procedure [id number] Alissa Kumar 1945 F Date Provider Department Center 08/13/2024 [facility] SATISH No family history on file [facility] Estimated glomerular filtrat ion rate (GFR) non- Americanon 08-12-2024 GFR/1.73 sq M.predicted among non-blacks MDRD (S/P/Bld) [Vol rate/Area] Estimated glomerular filtration rate (GFR) non- Low >=60 mL/min/1.[address] [place] [address] Laboratory - Chemistry and C hemistry - challengeon 08-12-2024 Creatinine [Mass/Vol] 0.94 mg/dL 0.55-1.02 [facility] GFR/1.73 sq M.predicted MDRD (S/P/Bld) [Vol rate/Area] mL/min/{1.73_m2} >=60 mL/min/1.[address] [place] [address] CNPNon 08-05-2024 CNPN Telephone (NCCAP) JENNA KUMAR ([id number]) 1945 F Date Time Provider Department 08/05/24 REUBEN ANGELA [facility] During your visit today, we recorded the following information about you: Oskar Nelson 08/05/2024 9:16 AM Signed Reuben Angela MD P [facility] Clerical Pool 1. MRI Spine 2. MRI Liver 3. Referral to KE[facility] @ [place] for rectal mass 4. Following MRI's will refer to [facility] (Mic or Darrell) 5. Virtual visit following MRI. 08/05/24 Spoke to patient, faxed MRI orders to [facility]. Referral to [place] scheduled 08/08 at 2pm. Will scheduled Virtual Follow up will be scheduled after MRIS Oskar Nelson 08/06/2024 8:37 AM Signed Spoke to Mohsen at [facility], they are going to call patient today to scheduled MRI Oskar Nelson 08/08/2024 10:10 AM Signed Spoke to Jessica at scheduling, she is trying to get information about her clips in her liver before scheduling. Oskar Nelson 08/09/2024 2:01 PM Signed Jessica called back, MRI's are scheduled 08/12 at [facility]. Appt at [place] for mass did not work, gave patient phone number to call and schedule. Provider phone follow up scheduled as patient does not have MyChart Oskar Nelson 08/09/2024 2:[address] Garcia, could you please do an order for Jenna to have her creatine lab done? [facility] needs it from her before her MRI's. [...] BLOOD COUNT AND DIFFERENTIAL [SQCBCDIF] Order #: [id number] FUTURE COMPREHENSIVE METABOLIC PANEL [SQCMP] Order #: [id number] FUTURE Prescriptions as of 08/09/2024 - diazePAM [...] Status:Closed by OSKAR NELSON on 08/05/24 Normal [facility] 36on 07-30-2024 36 Returned a phone bibi l to patient who was calling to confirm her August 13 appointment. Time confirmed. Normal [facility] Telephoneon 07-30-2024 Telephone [id number] Alissa Kumar 1945 F Date Provider Department Center 07/30/2024 [facility] ASHLY No family history on file Normal [facility] GLUCOSE, BLOOD (POC)on 07-23 Glucose [Mass/Vol] 100 mg/dL Abnormal 74 - 99 mg/dL [facility] Comment on above: Location:[facility], [address] [place] [address] , [place], [place], [address] The Accu-Chek Inform II glucose meter has [...] Interpretation and review of laboratory results Abnormal [facility] NM PET/CT SKULL-THIGH INITon 07-23-2024 NM PET/CT [...] * Uptake Time: 46 minutes * Radiopharmaceutical: V25-Pcdbtyluystuyhguio (FDG) COMPARISON: No previous FDG PET/CT available [...] any questions regarding this interpretation, please call [phone]. If you are unable to reach us at the number above, please feel free to contact [facility] eRadiology at [phone]. [id number] Normal [facility] CNPNon 07-22-2024 CNPN Telephone (HEMTSA) JENNA KUMAR ([id number]) 1945 F Date Time Provider Department 07/22/24 [...] 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] Order(s):FOUNDATIONONELIQUIDCD X [[id number]] Order #: [id number] FUTURE Prescriptions as of 07/29/2024 - diazePAM [...] Status:Closed by CANDE ESPITIA on 07/29/24 Normal [facility] metabolic 2000 panelon 07-20-2024 Albumin [Mass/Vol] 3.1 g/dL Low 3.9 - 4.9 g/dL [facility] ALP [Catalytic activity/Vol] 1130 U/L High 34 - 123 U/L [facility] ALT [Catalytic activity/Vol] 56 U/L High 7 - 38 U/L [facility] Anion gap [Moles/Vol] 12 mmol/L 8 - 15 mmol/L [facility] AST [Catalytic activity/Vol] 125 U/L High 13 - 35 U/L [facility] Bilirubin [Mass/Vol] 4.2 mg/dL High 0.2 - 1.3 mg/dL [facility] Calcium [Mass/Vol] 8.7 mg/dL 8.5 - 10. 2 mg/dL [facility] Chloride [Moles/Vol] 101 mmol/L 98 - 107 mmol/L [facility] CO2 [Moles/Vol] 24 mmol/L 22 - 30 mmol/L [facility] Creatinine [Mass/Vol] 0.73 mg/dL 0.58 - 0.96 mg/dL [facility] GFR/1.73 sq M.predicted among non-blacks MDRD (S/P/Bld) [Vol rate/Area] 83 mL/min/{1.73_m2} - PINF [facility] Comment on above: Estimated Glomerular Filtration Rate [...] 109 mg/dL High 74 - 99 mg/dL [facility] Comment on above: The [place] Diabete s Association (ADA) provides guidance for [...] Standards of Medical Care in Diabetes 2016, [place] Diabetes Association. Diabetes Care. 2016.39(Suppl 1). Interpretation and review of laboratory results Abnormal [facility] Potassium [Moles/Vol] 3.6 mmol/L Low 3.7 - 5.1 mmol/L [facility] Protein [Mass/Vol] 6.1 g/dL Low 6.3 - 8.0 g/dL [facility] Sodium [Moles/Vol] 137 mmol/L 136 - 144 mmol/L [facility] Urea nitrogen [Mass/Vol] 14 mg/dL 7 - 21 mg/dL [facility] Basophils Auto (Bld) [#/Vol] on 07-19-2024 Basophils (Bld) [#/Vol] Automated basophil count High <0.11 [facility] Basophils/100 WBC Auto (Bld) on 07-19-2024 Basophils/100 WBC (Bld) Automated basophil % [facility] Blood manual differential co mment interpretation narrativeon 07-19-2024 Manual differential comment Avi (Bld) [Interp] Blood manual differential comment interpretation narrative [facility] CBC W Auto Differential pane l (Bld)on 07-19-2024 Basophils (Bld) [#/Vol] 0.15 10*3/uL High [facility] Basophils/100 WBC (Bld) 0.9 % [facility] Differential cell count method Nom (Bld) Auto [facility] Eosinophils (Bld) [#/Vol] 0.44 10*3/uL [facility] Eosinophils/100 WBC (Bld) 2.6 % [facility] Erythrocyte distribution width (RBC) [Ratio] 19.1 % High 11.5 - 15.0 % [facility] Hematocrit (Bld) [Volume fraction] 34.4 % Low 36.0 - 46.0 % [facility] Hemoglobin (Bld) [Mass/Vol] 10.8 g/dL Low 11.5 - 15.5 g/dL [facility] Immature granulocytes (Bld) [#/Vol] 0.11 10*3/uL High [facility] Immature granulocytes/100 WBC (Bld) 0.7 % [facility] Interpretation and review of laboratory results Abnormal [facility] Lymphocytes (Bld) [#/Vol] 4.76 10*3/uL High [facility] Lymphocytes/100 WBC (Bld) 28.2 % [facility] MCH (RBC) [Entitic mass] 29.8 pg 26.0 - 34.0 pg [facility] MCHC (RBC) [Mass/Vol] 31.4 g/dL 30.5 - 36.0 g/dL [facility] MCV (RBC) [Entitic vol] 95 fL 80.0 - 100.0 fL [facility] Monocytes (Bld) [#/Vol] 1.32 10*3/uL High [facility] Monocytes/100 WBC (Bld) 7.8 % [facility] Neutrophils (Bld) [#/Vol] 10.08 10*3/uL High [facility] Neutrophils/100 WBC (Bld) 59.8 % [facility] Nucleated RBC (Bld) [#/Vol] [facility] Nucleated RBC/100 WBC (Bld) [Ratio] 0 % /100 WBC [facility] Platelet mean volume (Bld) [Entitic vol] 12.6 fL 9.0 - 12.7 fL [facility] Platelets (Bld) [#/Vol] 368 10*3/uL [facility] RBC (Bld) [#/Vol] 3.62 10*6/uL Low 3.90 - 5.20 m/uL [facility] WBC (Bld) [#/Vol] 16.86 10*3/uL High [facility] Basophils (Bld) [#/Vol] 0.15 10*3/uL High <0.11 [facility] Comment on above: Order Comment: Speci men Type: BLOOD SPECIMEN Ordering Facility: [facility] Address: [address] [place], [place] [address] Performed By: #### 5 7021-8 #### [facility] CLIA [id number] [address] [place] [address] [place] Basophils/100 WBC (Bld) 0.9 % Normal [facility] Comment on above: Order Comment: Speci men Type: BLOOD SPECIMEN Ordering Facility: [facility] Address: [address] [place] [address] Performed By: #### 5 7021-8 #### [facility] CLIA [id number] [address] [place] [address] [place] Differential cell count method Nom (Bld) Auto Normal [facility] Comment on above: Order Comment: Speci men Type: BLOOD SPECIMEN Ordering Facility: [facility] Address: [address] [place] [address] Performed By: #### 5 7021-8 #### [facility] CLIA [id number] [address] [place] [address] [place] Eosinophils (Bld) [#/Vol] 0.44 10*3/uL Normal <0.46 [facility] Comment on above: Order Comment: Speci men Type: BLOOD SPECIMEN Ordering Facility: [facility] Address: [address] [place] [address] Performed By: #### 5 7021-8 #### [facility] CLIA [id number] [address] [place] [address] [place] Eosinophils/100 WBC (Bld) 2.6 % Normal [facility] Comment on above: Order Comment: Speci men Type: BLOOD SPECIMEN Ordering Facility: [facility] Address: [address] [place] [address] Performed By: #### 5 7021-8 #### [facility] CLIA [id number] [address] [place] [address] [place] Erythrocyte distribution width (RBC) [Ratio] 19.1 % High 11.5-15.0 [facility] Comment on above: Order Comment: Speci men Type: BLOOD SPECIMEN Ordering Facility: [facility] Address: [address] [place] [address] Performed By: #### 5 7021-8 #### [facility] CLIA [id number] [address] [place] [address] [place] Hematocrit (Bld) [Volume fraction] 34.4 % Low 36.0-46.0 [facility] Comment on above: Order Comment: Speci men Type: BLOOD SPECIMEN Ordering Facility: [facility] Address: [address] [place] [address] Performed By: #### 5 7021-8 #### [facility] CLIA [id number] [address] [place] [address] [place] Hemoglobin (Bld) [Mass/Vol] 10.8 g/dL Low 11.5-15.5 [facility] Comment on above: Order Comment: Speci men Type: BLOOD SPECIMEN Ordering Facility: [facility] Address: [address] [place] [address] Performed By: #### 5 7021-8 #### [facility] CLIA [id number] [address] [place] [address] [place] Immature granulocytes (Bld) [#/Vol] 0.11 10*3/uL High <0.10 [facility] Comment on above: Order Comment: Speci men Type: BLOOD SPECIMEN Ordering Facility: [facility] Address: [address] [place] [address] Performed By: #### 5 7021-8 #### [facility] CLIA [id number] [address] [place] [address] [place] Immature granulocytes/100 WBC (Bld) 0.7 % Normal [facility] Comment on above: Order Comment: Speci men Type: BLOOD SPECIMEN Ordering Facility: [facility] Address: [address] [place] [address] Performed By: #### 5 7021-8 #### [facility] CLIA [id number] [address] [place] [address] [place] Lymphocytes (Bld) [#/Vol] 4.76 10*3/uL High 1.00-4.00 [facility] Comment on above: Order Comment: Speci men Type: BLOOD SPECIMEN Ordering Facility: [facility] Address: [address] [place] [address] Performed By: #### 5 7021-8 #### [facility] CLIA [id number] [address] [place] [address] [place] Lymphocytes/100 WBC (Bld) 28.2 % Normal [facility] Comment on above: Order Comment: Speci men Type: BLOOD SPECIMEN Ordering Facility: [facility] Address: [address] [place] [address] Performed By: #### 5 7021-8 #### [facility] CLIA [id number] [address] [place] [address] [place] MCH (RBC) [Entitic mass] 29.8 pg Normal 26.0-34.0 [facility] Comment on above: Order Comment: Speci men Type: BLOOD SPECIMEN Ordering Facility: [facility] Address: [address] [place] [address] Performed By: #### 5 7021-8 #### [facility] CLIA [id number] [address] [place] [address] [place] MCHC (RBC) [Mass/Vol] 31.4 g/dL Normal 30.5-36.0 [facility] Comment on above: Order Comment: Speci men Type: BLOOD SPECIMEN Ordering Facility: [facility] Address: [address] [place] [address] Performed By: #### 5 7021-8 #### [facility] CLIA [id number] [address] [place] [address] [place] MCV (RBC) [Entitic vol] 95.0 fL Normal 80.0-100.0 [facility] Comment on above: Order Comment: Speci men Type: BLOOD SPECIMEN Ordering Facility: [facility] Address: [address] [place] [address] Performed By: #### 5 7021-8 #### [facility] CLIA [id number] [address] [place] [address] [place] Monocytes (Bld) [#/Vol] 1.32 10*3/uL High <0.87 [facility] Comment on above: Order Comment: Speci men Type: BLOOD SPECIMEN Ordering Facility: [facility] Address: [address] [place] [address] Performed By: #### 5 7021-8 #### [facility] CLIA [id number] [address] [place] [address] [place] Monocytes/100 WBC (Bld) 7.8 % Normal [facility] Comment on above: Order Comment: Speci men Type: BLOOD SPECIMEN Ordering Facility: [facility] Address: [address] [place] [address] Performed By: #### 5 7021-8 #### [facility] CLIA [id number] [address] [place] [address] [place] Neutrophils (Bld) [#/Vol] 10.08 10*3/uL High 1.45-7.50 [facility] Comment on above: Order Comment: Speci men Type: BLOOD SPECIMEN Ordering Facility: [facility] Address: [address] [place] [address] Performed By: #### 5 7021-8 #### [facility] CLIA [id number] [address] [place] [address] [place] Neutrophils/100 WBC (Bld) 59.8 % Normal [facility] Comment on above: Order Comment: Speci men Type: BLOOD SPECIMEN Ordering Facility: [facility] Address: [address] [place] [address] Performed By: #### 5 7021-8 #### [facility] CLIA [id number] [address] [place] [address] [place] Nucleated RBC (Bld) [#/Vol] 10*3/uL Normal <0.01 [facility] Comment on above: Order Comment: Speci men Type: BLOOD SPECIMEN Ordering Facility: [facility] Address: [address] [place] [address] Performed By: #### 5 7021-8 #### [facility] CLIA [id number] [address] [place] [address] [place] Nucleated RBC/100 WBC (Bld) [Ratio] 0.0 /100 WBC Normal [facility] Comment on above: Order Comment: Speci men Type: BLOOD SPECIMEN Ordering Facility: [facility] Address: [address] [place] [address] Performed By: #### 5 7021-8 #### [facility] CLIA [id number] [address] [place] [address] [place] Platelet mean volume (Bld) [Entitic vol] 12.6 fL Normal 9.0-12.7 [facility] Comment on above: Order Comment: Speci men Type: BLOOD SPECIMEN Ordering Facility: [facility] Address: [address] [place] [address] Performed By: #### 5 7021-8 #### [facility] CLIA [id number] [address] [place] [address] [place] Platelets (Bld) [#/Vol] 368 10*3/uL Normal 150-400 [facility] Comment on above: Order Comment: Speci men Type: BLOOD SPECIMEN Ordering Facility: [facility] Address: [address] [place] [address] Performed By: #### 5 7021-8 #### [facility] CLIA [id number] [address] [place] [address] [place] RBC (Bld) [#/Vol] 3.62 10*6/uL Low 3.90-5.[address] [facility] Comment on above: Order Comment: Speci men Type: BLOOD SPECIMEN Ordering Facility: [facility] Address: [address] [place] [address] Performed By: #### 5 7021-8 #### [facility] CLIA [id number] [address] [place] [address] [place] WBC (Bld) [#/Vol] 16.86 10*3/uL High 3.70-11.00 [facility] Comment on above: Order Comment: Speci men Type: BLOOD SPECIMEN Ordering Facility: [facility] Address: [address] [place] [address] Performed By: #### 5 7021-8 #### [facility] CLIA [id number] [address] [place] [address] [place] CEA SerPl-ncon 07-19-2024 Carcinoembryonic Ag [Mass/Vol] 2.9 ng/mL Normal <=2.9 [facility] Comment on above: Order Comment: Speci men Type: BLOOD SPECIMEN Ordering Facility: [facility] Address: [address] [place] [address] Result Comment: Carc inoembryonic antigen test is used as an aid in monitoring response to treatment or recurrence in patients with established colorectal, breast, lung, prostatic, pancreatic, and ovarian carcinomas. Clinical correlation is required. The Carcinoembryonic antigen test was performed using the [employer] Unicel DXI paramagnetic particle chemiluminescent immunoassay method. Results obtained with different assay methods or kits cannot be used interchangeably. Performed By: #### 5 7021-8 #### [facility] CLIA [id number] [address] [place] [address] [place] CNOVSPon 07-19-2024 CNOVSP Visit (SP) Office (H EMASA) JENNA KUMAR ([id number]) 1945 F Date Time Provider Department 07/19/24 4:00 PM REUBEN ANGELA During your visit today, we recorded the following information about you: Temperature Pulse Respiration Blood pressure 97.7 degrees 84/minute 18/minute 146/81 Weight 67.3 kg Reuben Angela MD 07/21/2024 3:47 PM Signed NAME: Jenna Kumar CLINIC NO.: [id number] DATE OF SERVICE: July 19, 2024 ([place]) Referring Provider: Mayito Costello, Consultation requested by Dr. Costello for an opinion regarding Ms. Jenna Kumar, and my final recommendations will be communicated back to the requesting physician by way of shared medical record or letter via [place] mail. Additional Clinicians involved in Jenna Kumar's care: Bradley Pope DIAGNOSIS: Metastatic adenocarcinoma of liver. ASSESSMENT: 79 [...] 4.6, Albumin: 1.7 07/01/2024-07/11/2024 - ER at [facility] after a fall due to lightheadedness, dizziness, and hypotension - transferred and [facility] for [facility] 06/28/2024 - ERCP AND Sigmoidoscopy: Dr. Bradley Pope [facility] High grade intrahepatic duct mass/stricture, large left [...] in part B may not be entirely pharmacy services representative of a larger mass. 06/21/2024 - [...] with con (more content not included)... Normal [facility] Cancer Ag19-9 SerPl-aCncon 0 07-19-2024 Cancer Ag 19-9 Qn <2.0 Normal <36.0 [facility] Comment on above: Order Comment: Nael mike Type: BLOOD SPECIMEN Ordering Facility: [facility] Address: [address] [place] [address] Result Comment: [facility] er antigen 19-9 test is used as an aid in monitoring response to treatment or recurrence in patients with established pancreatic, hepatobiliary, or gastrointestinal malignancies. Clinical correlation is required. The CA 19-9 Antigen test was performed using the Brett Beth Unicel DXI paramagnetic particle chemiluminescent immunoassay method. Results obtained with different assay methods or kits cannot be used interchangeably. Performed By: #### 5 7021-8 #### [facility] CLIA [id number] [address] [place] [address] [place] Comprehensive metabolic 2000 panelon 07-19-2024 Albumin [Mass/Vol] 3.1 g/dL Low 3.9-4.9 [facility] Comment on above: Order Comment: Nael mike Type: BLOOD SPECIMEN Ordering Facility: [facility] Address: [address] [place] [address] Performed By: #### 5 7021-8 #### [facility] CLIA [id number] [address] [id number] [address] [place] ALP [Catalytic activity/Vol] 1130 U/L High 34-123 [facility] Comment on above: Order Comment: Speci men Type: BLOOD SPECIMEN Ordering Facility: [facility] Address: [address] [place] [address] Performed By: #### 5 7021-8 #### [facility] CLIA [id number] [address] [place], [place] [address] [place] ALT [Catalytic activity/Vol] 56 U/L High 7-38 [facility] Comment on above: Order Comment: Speci men Type: BLOOD SPECIMEN Ordering Facility: [facility] Address: [address] [place] [address] Performed By: #### 5 7021-8 #### [facility] CLIA [id number] [address] [place] [address] [place] Anion gap [Moles/Vol] 12 mmol/L Normal 8-15 [facility] Comment on above: Order Comment: Speci men Type: BLOOD SPECIMEN Ordering Facility: [facility] Address: [address] [place] [address] Performed By: #### 5 7021-8 #### [facility] CLIA [id number] [address] [place] [address] [place] AST [Catalytic activity/Vol] 125 U/L High 13-35 [facility] Comment on above: Order Comment: Speci men Type: BLOOD SPECIMEN Ordering Facility: [facility] Address: [address] [place] [address] Performed By: #### 5 7021-8 #### [facility] CLIA [id number] [address] [place] [address] [place] Bilirubin [Mass/Vol] 4.2 mg/dL High 0.2-1.3 [facility] Comment on above: Order Comment: Speci men Type: BLOOD SPECIMEN Ordering Facility: [facility] Address: [address] [place] [address] Performed By: #### 5 7021-8 #### [facility] CLIA [id number] [address] [place] [address] [place] Calcium [Mass/Vol] 8.7 mg/dL Normal 8.5-10.2 [facility] Comment on above: Order Comment: Speci men Type: BLOOD SPECIMEN Ordering Facility: [facility] Address: [address] [place] [address] Performed By: #### 5 7021-8 #### [facility] [facility] CLIA [id number] [address] [place], [place] [id number] [place] Chloride [Moles/Vol] 101 mmol/L Normal 98-107 [facility] Comment on above: Order Comment: Speci men Type: BLOOD SPECIMEN Ordering Facility: [facility] Address: [address] [place] [address] Performed By: #### 5 7021-8 #### [facility] CLIA [id number] [address] [place] [address] [place] CO2 [Moles/Vol] 24 mmol/L Normal 22-30 [facility] Comment on above: Order Comment: Speci men Type: BLOOD SPECIMEN Ordering Facility: [facility] Address: [address] [place] [address] Performed By: #### 5 7021-8 #### [facility] CLIA [id number] [address] [place], [place] [address] [place] Creatinine [Mass/Vol] 0.73 mg/dL Normal 0.58-0.96 [facility] Comment on above: Order Comment: Speci men Type: BLOOD SPECIMEN Ordering Facility: [facility] Address: [address] [place] [address] Performed By: #### 5 7021-8 #### [facility] CLIA [id number] [address] [place], [place] [address] [place] Creatinine and Glomerular filtration rate.predicted panel (S/P/Bld) 83 mL/min/1.73m??? Normal >=60 [facility] Comment on above: Order Comment: Nael mike Type: BLOOD SPECIMEN Ordering Facility: [facility] Address: [address] [place] [address] Result Comment: Henrietta mated Glomerular Filtration Rate [...] accurately reflect actual GFR. Performed By: #### 5 7021-8 #### [facility] CLIA [id number] [address] [place] [address] [place] Glucose [Mass/Vol] 109 mg/dL High 74-99 [facility] Comment on above: Order Comment: Nael mike Type: BLOOD SPECIMEN Ordering Facility: [facility] Address: [address] [place] [address] Result Comment: The [place] Diabetes Association (ADA) provides guidance for cutoff [...] Standards of Medical Care in Diabetes 2016, [place] Diabetes Association. Diabetes Care. 2016.39(Suppl 1). Performed By: #### 5 7021-8 #### [facility] CLIA [id number] [address] [place] [address] [place] Potassium [Moles/Vol] 3.6 mmol/L Low 3.7-5.1 [facility] Comment on above: Order Comment: Nael mike Type: BLOOD SPECIMEN Ordering Facility: [facility] Address: [address] [place] [address] Performed By: #### 5 7021-8 #### [facility] CLIA [id number] [address] [place] [address] [place] Protein [Mass/Vol] 6.1 g/dL Low 6.3-8.0 [facility] Comment on above: Order Comment: Speci men Type: BLOOD SPECIMEN Ordering Facility: [facility] Address: [address] [place] [address] Performed By: #### 5 7021-8 #### [facility] CLIA [id number] [address] [place] [address] [place] Sodium [Moles/Vol] 137 mmol/L Normal 136-144 [facility] Comment on above: Order Comment: Speci men Type: BLOOD SPECIMEN Ordering Facility: [facility] Address: [address] [place] [address] Performed By: #### 5 7021-8 #### [facility] CLIA [id number] [address] [place] [address] [place] Urea nitrogen [Mass/Vol] 14 mg/dL Normal 7-21 [facility] Comment on above: Order Comment: Speci men Type: BLOOD SPECIMEN Ordering Facility: [facility] Address: [address] [place] [address] Performed By: #### 5 7021-8 #### [facility] CLIA [id number] [address] [place] [address] [place] Eosinophils/100 WBC Auto (Bl d)on 07-19-2024 Eosinophils/100 WBC (Bld) Automated eosinophil % [facility] Erythrocyte distribution wid th Auto (RBC) [Ratio]on 07-19-2024 Erythrocyte distribution width (RBC) [Ratio] Erythrocyte distribution width [Ratio] by Automated count High 11.5-15.0 [facility] Hematocrit Auto (Bld) [Volum e fraction]on 07-19-2024 Hematocrit (Bld) [Volume fraction] Hematocrit [Volume Fraction] of Blood by Automated count Low 36.0-46.0 [facility] Hemoglobin [Mass/volume] in Bloodon 07-19-2024 Hemoglobin (Bld) [Mass/Vol] Hemoglobin [Mass/volume] in Blood Low 11.5-15.5 [facility] Laboratory - Chemistry and C hemistry - challengeon 07-19-2024 Albumin [Mass/Vol] 3.1 g/dL Low 3.9-4.9 [facility] ALP [Catalytic activity/Vol] 1130 U/L High 34-123 [facility] ALT [Catalytic activity/Vol] 56 U/L High 7-38 [facility] AST [Catalytic activity/Vol] 125 U/L High 13-35 [facility] Bilirubin [Mass/Vol] 4.2 mg/dL High 0.2-1.3 [facility] Calcium [Mass/Vol] 8.7 mg/dL 8.5-10.2 [facility] Chloride [Moles/Vol] 101 mmol/L 98-107 [facility] CO2 [Moles/Vol] 24 mmol/L 22-30 [facility] Creatinine [Mass/Vol] 0.73 mg/dL 0.58-0.96 [facility] Glucose [Mass/Vol] 109 mg/dL High 74-99 [facility] Comment on above: The [place] Diabete s Association (ADA) provides guidance for cutoff values for fasting glucose and random glucose. The ADA defines fasting as no caloric intake for at least 8 hours. Fasting plasma glucose results between 100 to 125 mg/dL indicate increased risk for diabetes (prediabetes).Fasting plasma glucose results greater than or equal to 126 mg/dL meet the criteria for diagnosis of diabetes. In the absence of unequivocal hyperglycemia, results should be confirmed by repeat testing. In a patient with classic symptoms of hyperglycemia or hyperglycemic crisis, random plasma glucose results greater than or equal to 200 mg/dL meet the criteria for diagnosis of diabetes.Reference: Standards of Medical Care in Diabetes 2016, [place] Diabetes Association. Diabetes Care. 2016.39(Suppl 1). Potassium [Moles/Vol] 3.6 mmol/L Low 3.7-5.1 [facility] Sodium [Moles/Vol] 137 mmol/L 136-144 [facility] Urea nitrogen [Mass/Vol] 14 mg/dL 7-21 [facility] Laboratory - Hematology and Cell countson 07-19-2024 Eosinophils (Bld) [#/Vol] 0.44 10*3/uL <0.46 [facility] Immature granulocytes (Bld) [#/Vol] 0.11 10*3/uL High <0.10 [facility] Immature granulocytes/100 WBC (Bld) 0.7 % [facility] Leukocytes [#/volume] correc saleem for nucleated erythrocytes in Blood by Automated counon 07-19-2024 WBC corrected for nucl RBC Auto (Bld) [#/Vol] Leukocytes [#/volume] corrected for nucleated erythrocytes in Blood by Automated coun High 3.70-11.00 [facility] Lymphocytes Auto (Bld) [#/Vo l]on 07-19-2024 Lymphocytes (Bld) [#/Vol] Lymphocytes [#/volume] in Blood by Automated count High 1.00-4.00 [facility] Lymphocytes/100 WBC Auto (Bl d)on 07-19-2024 Lymphocytes/100 WBC (Bld) Lymphocytes/100 leukocytes in Blood by Automated count [facility] MCH Auto (RBC) [Entitic mass ]on 07-19-2024 MCH (RBC) [Entitic mass] MCH [Entitic mass] by Automated count 26.0-34.0 [facility] MCHC Auto (RBC) [Mass/Vol]on 07-19-2024 MCHC (RBC) [Mass/Vol] MCHC [Mass/volume] by Automated count 30.5-36.0 [facility] MCV Auto (RBC) [Entitic vol] on 07-19-2024 MCV (RBC) [Entitic vol] MCV [Entitic volume] by Automated count 80.0-100.0 [facility] Monocytes Auto (Bld) [#/Vol] on 07-19-2024 Monocytes (Bld) [#/Vol] Automated blood monocyte count High <0.87 [facility] Monocytes/100 WBC Auto (Bld) on 07-19-2024 Monocytes/100 WBC (Bld) Automated monocyte % [facility] Neutrophils Auto (Bld) [#/Vo l]on 07-19-2024 Neutrophils (Bld) [#/Vol] Neutrophils [#/volume] in Blood by Automated count High 1.45-7.50 [facility] Neutrophils/100 WBC Auto (Bl d)on 07-19-2024 Neutrophils/100 WBC (Bld) Automated neutrophil % [facility] No Panel Informationon 07-19 Estimated GFR (CKD-EPI) 83 mL/min/1.73m??? >=60 [facility] Comment on above: Estimated Glomerular Filtration Rate (eGFR) is calculated using the 2020 CKD-EPI creatinine equation. This equation utilizes serum creatinine, sex, and age as parameters. The creatinine assay has traceable calibration to isotope dilution-mass spectrometry. Refer to KDIGO guidelines for clinical interpretation. In patients with unstable renal function, e.g. those with acute kidney injury, the eGFR may not accurately reflect actual GFR. Nucleated RBC Auto (Bld) [#/ Vol]on 07-19-2024 Nucleated RBC (Bld) [#/Vol] Nucleated erythrocytes [#/volume] in Blood by Automated count <0.01 [facility] Nucleated erythrocytes [Pres ence] in Blood by Automated counton 07-19-2024 Nucleated RBC Auto Ql (Bld) Nucleated erythrocytes [Presence] in Blood by Automated count [facility] Orders Onlyon 07-19-2024 Orders Only [id number] Alissa Kumar 1945 F Date Provider Department Center 07/19/2024 [id number], HISTORICAL DCC ONC DCC No family history on file Normal [facility] Orders Only [id number] Alissa Kumar M 1945 F Date Provider Department Center 07/19/2024 39[facility] No family history on file Normal [facility] Platelet mean volume Auto (B ld) [Entitic vol]on 07-19-2024 Platelet mean volume (Bld) [Entitic vol] Platelet mean volume [Entitic volume] in Blood by Automated count 9.0-12.7 [facility] Platelets Auto (Bld) [#/Vol] on 07-19-2024 Platelets (Bld) [#/Vol] Platelets [#/volume] in Blood by Automated count 150-400 [facility] Protein [Mass/volume] in Ser um or Plasmaon 07-19-2024 Protein [Mass/Vol] Protein [Mass/volume ] in Serum or Plasma Low 6.3-8.0 [facility] RBC Auto (Bld) [#/Vol]on RBC (Bld) [#/Vol] Erythrocytes [#/volu me] in Blood by Automated count Low 3.90-5.20 [facility] Serum or plasma anion gap de terminationon 07-19-2024 Anion gap [Moles/Vol] Serum or plasma anion gap determination 8-15 [facility] Serum or plasma cancer antig en 19-9 measurement (units/volume)on 07-19-2024 Cancer Ag 19-9 Qn Serum or plasma canc er antigen 19-9 measurement (units/volume) <36.0 [facility] Comment on above: Cancer antigen 19-9 test is used as an aid in monitoring response to treatment or recurrence in patients with established pancreatic, hepatobiliary, or gastrointestinal malignancies. Clinical correlation is required.The CA 19-9 Antigen test was performed using the [employer] DXI paramagnetic particle chemiluminescent immunoassay method. Results obtained with different assay methods or kits cannot be used interchangeably. Documentationon 07-18-2024 Documentation [id number] Alissa Kumar 1945 F Date Provider Department Center 07/18/202478592-ASYDLUCY KILPATRICK [facility] GI [facility] No family history on file Normal [facility] HPon 07-18-2024 HP Follow up call made. Patient reports that she is feeling improvement in symptoms, although she is having alternating stools, otherwise denies complaints. Normal [facility] 36on 07-16-2024 36 Normal [facility] CBCon 07-11-2024 Erythrocyte distribution width (RBC) [Ratio] 22.5 % High 11.5-15.0 [facility] Comment on above: Performed By: #### L [id number] ####[facility] [place] [address] ERYTHROCYTE MEAN CORPUSCULAR HEMOGLOBIN CONCENTRATION (G/DL) BY AUTOMATED 32.2 g/dL Normal 32.0-35.0 [facility] Comment on above: Performed By: #### L [id number] ####[facility] ([facility])[address] [place] [address] Hematocrit (Bld) [Volume fraction] 29.2 % Low 36.0-48.0 [facility] Comment on above: Performed By: #### L [id number] ####[facility] ([facility])[address] [place] [address] Hemoglobin (Bld) [Mass/Vol] 9.4 g/dL Low 12.0-15.0 [facility] Comment on above: Performed By: #### L [id number] ####[facility] ([facility])[address] [place] [address] IMMATURE PLATELET FRACTION % 4.9 % Normal 0.8-6.3 [facility] Comment on above: Performed By: #### L [id number] ####[facility] ([facility])[address] [place] [address] MCH (RBC) [Entitic mass] 29.5 pg Normal 27.0-33.0 [facility] Comment on above: Performed By: #### L [id number] ####[facility] ([facility])[address] [place] [address] MCV (RBC) [Entitic vol] 91.5 fL Normal 82.0-98.0 [facility] Comment on above: Performed By: #### L [id number] ####[facility] ([facility])[address] [place] [address] PLATELETS (10*3/UL) IN BLOOD AUTOMATED COUNT 460 10*3/uL High 150-400 [facility] Comment on above: Performed By: #### L [id number] ####[facility] ([facility])[address] [place] [address] RBC (Bld) [#/Vol] 3.19 10*6/uL Low 3.80-5.00 [facility] Comment on above: Performed By: #### L [id number] ####[facility] ([facility])[address] [place] [address] WBC (Bld) [#/Vol] 20.05 10*3/uL High 4.00-10.60 [facility] Comment on above: Performed By: #### L [id number] ####[facility] ([facility])[address] [place] [address] COMPREHENSIVE METABOLIC PANE Rigoberto 07-11-2024 Albumin [Mass/Vol] 2.4 g/dL Low 3.5-5.7 [facility] Comment on above: Performed By: #### L [id number] ####[facility] ([facility])[address] [place] [address] ALP [Catalytic activity/Vol] 753 U/L High 34-104 [facility] Comment on above: Performed By: #### L [id number] ####[facility] ([facility])[address] [place] [address] ALT [Catalytic activity/Vol] 61 U/L High 7-52 [facility] Comment on above: Performed By: #### L [id number] ####[facility] ([facility])[address] [place] [address] Anion gap [Moles/Vol] 11 mmol/L Normal 7-20 [facility] Comment on above: Performed By: #### L [id number] ####[facility] ([facility])[address] [place] [address] AST [Catalytic activity/Vol] 88 U/L High 13-39 [facility] Comment on above: Performed By: #### L [id number] ####[facility] ([facility])[address] [place] [address] Bilirubin [Mass/Vol] 5.5 mg/dL High 0.3-1.0 [facility] Comment on above: Performed By: #### L [id number] ####[facility] ([facility])[address] [place] [address] Calcium [Mass/Vol] 8.0 mg/dL Low 8.6-10.3 [facility] Comment on above: Performed By: #### L [id number] ####[facility] ([facility])[address] [place] [address] Chloride [Moles/Vol] 104 mmol/L Normal 98-107 [facility] Comment on above: Performed By: #### L [id number] ####[facility] ([facility])[address] [place] [address] CO2 [Moles/Vol] 24 mmol/L Normal 21-31 [facility] Comment on above: Performed By: #### L [id number] ####[facility] ([facility])[address] [place] [address] Creatinine [Mass/Vol] 0.58 mg/dL Low 0.60-1.20 [facility] Comment on above: Performed By: #### L [id number] ####[facility] ([facility])[address] [place] [address] GLOMERULAR FILTRATION RATE ML/MIN/1.73 SQ M.PREDICTED 90.9 mL/min/1.73m*2 Normal >60.0 [facility] Comment on above: Result Comment: [facility]???s estimated glomerular filtration rate (eGFR) will no [...] of individuals. Performed By: #### L [id number] ####[facility] ([facility])[address] [place] [address] Glucose [Mass/Vol] 99 mg/dL Normal 70-100 [facility] Comment on above: Performed By: #### L [id number] ####[facility] ([facility])[address] [place] [address] Potassium [Moles/Vol] 3.7 mmol/L Normal 3.5-5.1 [facility] Comment on above: Performed By: #### L [id number] ####[facility] ([facility])[address] [place] [address] Protein [Mass/Vol] 4.8 g/dL Low 6.0-8.3 [facility] Comment on above: Performed By: #### L [id number] ####[facility] ([facility])[address] [place] [address] Sodium [Moles/Vol] 135 mmol/L Low 136-145 [facility] Comment on above: Performed By: #### L [id number] ####[facility] ([facility])[address] [place] [address] Urea nitrogen [Mass/Vol] 8 mg/dL Normal 7-25 [facility] Comment on above: Performed By: #### L [id number] ####[facility] ([facility])[address] [place] [address] UREA NITROGEN/CREATININ E (MASS RATIO) IN SER/PLAS 13.8 [facility] Comment on above: Performed By: #### L [id number] ####[facility] ([facility])[address] [place] [address] DSon 07-11-2024 DS [facility] Orders Onlyon 07-11-2024 Orders Only [id number] Alissa Kumar 1945 F Date Provider Department Center 07/11/2024 JOSE LUIS RAJPUT [facility] None No family history on file [facility] 30on 07-10-2024 30 [facility] 30 [facility] CBC WITH AUTO DIFFERENTIALon 07-10-2024 Erythrocyte distribution width (RBC) [Ratio] 22.9 % High 11.5-15.0 [facility] Comment on above: Performed By: #### L [id number] ####[facility] ([facility])[address] [place] [address] ERYTHROCYTE MEAN CORPUSCULAR HEMOGLOBIN CONCENTRATION (G/DL) BY AUTOMATED 31.6 g/dL Low 32.0-35.0 [facility] Comment on above: Performed By: #### L [id number] ####[facility] ([facility])[address] [place] [address] Hematocrit (Bld) [Volume fraction] 30.7 % Low 36.0-48.0 [facility] Comment on above: Performed By: #### L [id number] ####[facility] ([facility])[address] [place] [address] Hemoglobin (Bld) [Mass/Vol] 9.7 g/dL Low 12.0-15.0 [facility] Comment on above: Performed By: #### L [id number] ####[facility] ([facility])[address] [place] [address] IMMATURE PLATELET FRACTION % 5.4 % Normal 0.8-6.3 [facility] Comment on above: Performed By: #### L [id number] ####[facility] ([facility])[address] [place] [address] MCH (RBC) [Entitic mass] 28.9 pg Normal 27.0-33.0 [facility] Comment on above: Performed By: #### L [id number] ####[facility] ([facility])[address] [place] [address] MCV (RBC) [Entitic vol] 91.4 fL Normal 82.0-98.0 [facility] Comment on above: Performed By: #### L [id number] ####[facility] ([facility])[address] [place] [address] NRBC (PER 100 WBCS) BY AUTOMATED COUNT 0.0 % Normal 0 [facility] Comment on above: Performed By: #### L [id number] ####[facility] ([facility])[address] [place] [address] PLATELETS (10*3/UL) IN BLOOD AUTOMATED COUNT 471 10*3/uL High 150-400 [facility] Comment on above: Performed By: #### L [id number] ####[facility] ([facility])[address] [place] [address] RBC (Bld) [#/Vol] 3.36 10*6/uL Low 3.80-5.00 [facility] Comment on above: Performed By: #### L [id number] ####[facility] ([facility])[address] [place] [address] WBC (Bld) [#/Vol] 19.79 10*3/uL High 4.00-10.60 [facility] Comment on above: Performed By: #### L [id number] ####[facility] ([facility])[address] [place] [address] COMPREHENSIVE METABOLIC PANE Rigoberto 07-10-2024 Albumin [Mass/Vol] 2.5 g/dL Low 3.5-5.7 [facility] Comment on above: Performed By: #### L [id number] ####[facility] ([facility])[address] [place] [address] ALP [Catalytic activity/Vol] 791 U/L High 34-104 [facility] Comment on above: Performed By: #### L [id number] ####[facility] ([facility])[address] [place] [address] ALT [Catalytic activity/Vol] 67 U/L High 7-52 [facility] Comment on above: Performed By: #### L [id number] ####[facility] ([facility])[address] [place] [address] Anion gap [Moles/Vol] 10 mmol/L Normal 7-20 [facility] Comment on above: Performed By: #### L [id number] ####[facility] ([facility])[address] [place] [address] AST [Catalytic activity/Vol] 86 U/L High 13-39 [facility] Comment on above: Performed By: #### L [id number] ####[facility] [place] [address] Bilirubin [Mass/Vol] 6.1 mg/dL High 0.3-1.0 [facility] Comment on above: Performed By: #### L [id number] ####[facility] [place] [address] Calcium [Mass/Vol] 8.0 mg/dL Low 8.6-10.3 [facility] Comment on above: Performed By: #### L [id number] ####[facility] ([facility])[address] [place] [address] Chloride [Moles/Vol] 101 mmol/L Normal 98-107 [facility] Comment on above: Performed By: #### L [id number] ####[facility] ([facility])[address] [place] [address] CO2 [Moles/Vol] 26 mmol/L Normal 21-31 [facility] Comment on above: Performed By: #### L [id number] ####[facility] ([facility])[address] [place] [address] Creatinine [Mass/Vol] 0.67 mg/dL Normal 0.60-1.20 [facility] Comment on above: Performed By: #### L [id number] ####[facility] ([facility])[address] [place] [address] GLOMERULAR FILTRATION RATE ML/MIN/1.73 SQ M.PREDICTED 87.8 mL/min/1.73m*2 Normal >60.0 [facility] Comment on above: Result Comment: [facility]???s estimated glomerular filtration rate (eGFR) will no [...] of individuals. Performed By: #### L [id number] ####[facility] ([facility])[address] [place] [address] Glucose [Mass/Vol] 101 mg/dL High 70-100 [facility] Comment on above: Performed By: #### L [id number] ####[facility] ([facility])[address] [place] [address] Potassium [Moles/Vol] 3.5 mmol/L Normal 3.5-5.1 [facility] Comment on above: Performed By: #### L [id number] ####[facility] ([facility])[address] [place] [address] Protein [Mass/Vol] 5.1 g/dL Low 6.0-8.3 [facility] Comment on above: Performed By: #### L [id number] ####[facility] ([facility])[address] [place] [address] Sodium [Moles/Vol] 133 mmol/L Low 136-145 [facility] Comment on above: Performed By: #### L [id number] ####[facility] ([facility])[address] [place] [address] Urea nitrogen [Mass/Vol] 9 mg/dL Normal 7-25 [facility] Comment on above: Performed By: #### L [id number] ####[facility] ([facility])[address] [place] [address] UREA NITROGEN/CREATININ E (MASS RATIO) IN SER/PLAS 13.4 [facility] Comment on above: Performed By: #### L [id number] ####[facility] ([facility])[address] [place] [address] MANUAL DIFFERENTIALon 2024 ANISOCYTOSIS PRESENCE IN BLOOD BY LIGHT MICROSCOPY Moderate Normal [facility] Comment on above: Performed By: #### L [id number] ####[facility] ([facility])[address] [place] [address] BASOPHILS (10*3/UL) IN BLOOD BY CALCULATION 0.00 10*3/uL Normal 0.00-0.20 [facility] Comment on above: Performed By: #### L [id number] ####[facility] ([facility])[address] [place] [address] BASOPHILS/100 LEUKOCYTES IN BLOOD BY AUTOMATED COUNT 0.0 % Normal 0.0-1.0 [facility] Comment on above: Performed By: #### L [id number] ####[facility] ([facility])[address] [place] [address] EOSINOPHILS (10*3/UL) IN BLOOD BY CALCULATION 1.19 10*3/uL High 0.00-0.50 [facility] Comment on above: Performed By: #### L [id number] ####[facility] ([facility])[address] [place] [address] EOSINOPHILS/100 LEUKOCYTES IN BLOOD BY AUTOMATED COUNT 6.0 % Normal 0.0-6.0 [facility] Comment on above: Performed By: #### L [id number] ####[facility] ([facility])[address] [place] [address] HYPOCHROMIA (PRESENCE) IN BLOOD BY LIGHT MICROSCOPY Slight Normal [facility] Comment on above: Performed By: #### L [id number] ####[facility] ([facility])[address] [place] [address] LYMPHOCYTES (10*3/UL) IN BLOOD BY CALCULATION 3.80 10*3/uL Normal 1.20-4.00 [facility] Comment on above: Performed By: #### L [id number] ####[facility] ([facility])[address] [place] [address] LYMPHOCYTES/100 LEUKOCYTES IN BLOOD BY AUTOMATED COUNT 19.2 % Low 20.0-45.0 [facility] Comment on above: Performed By: #### L [id number] ####[facility] ([facility])[address] [place] [address] METAMYELOCYTES (10*3/UL) IN BLOOD BY CALCULATION 0.40 10*3/uL High 0.00 [facility] Comment on above: Performed By: #### L [id number] ####[facility] ([facility])[address] [place] [address] METAMYELOCYTES/100 LEUKOCYTES IN BLOOD CELLAVISION 2.0 % High 0.0-0.0 [facility] Comment on above: Performed By: #### L [id number] ####[facility] ([facility])[address] [place] [address] MONOCYTES (10*3/UL) IN BLOOD BY CALCUATION 0.91 10*3/uL Normal 0.10-1.00 [facility] Comment on above: Performed By: #### L [id number] ####[facility] ([facility])[address] [place] [address] MONOCYTES/100 LEUKOCYTES IN BLOOD BY AUTOMATED COUNT 4.6 % Low 5.0-12.0 [facility] Comment on above: Performed By: #### L [id number] ####[facility] ([facility])[address] [place] [address] NEUTROPHILS (10*3/UL) IN BLOOD BY CALCULATION 13.5 10*3/uL High 1.6-7.6 [facility] Comment on above: Performed By: #### L [id number] ####[facility] ([facility])[address] [place] [address] NEUTROPHILS/100 LEUKOCYTES IN BLOOD BY AUTOMATED COUNT 68.2 % Normal 40.0-72.0 [facility] Comment on above: Performed By: #### L [id number] ####[facility] ([facility])[address] [place] [address] PLASMA CELLS/100 LEUKOCYTES IN BLOOD 0 % Normal 0 [facility] Comment on above: Performed By: #### L [id number] ####[facility] ([facility])[address] [place] [address] PLATELETS GIANT PRESENCE IN BLOOD BY LIGHT MICROSCOPY Present Normal [facility] Comment on above: Performed By: #### L [id number] ####[facility] ([facility])[address] [place] [address] POIKILOCYTOSIS (PRESENCE) IN BLOOD BY LIGHT MICROSCOPY Slight Normal [facility] Comment on above: Performed By: #### L [id number] ####[facility] ([facility])[address] [place] [address] POLYCHROMASIA IN BLOOD BY LIGHT MICROSCOPY Moderate Normal [facility] Comment on above: Performed By: #### L [id number] ####[facility] ([facility])[address] [place] [address] VARIANT LYMPHOCYTES (10*3/UL) IN BLOOD BY CALCULATION 0.00 10*3/uL Normal 0.00 [facility] Comment on above: Performed By: #### L [id number] ####[facility] ([facility])[address] [place] [address] VARIANT LYMPHOCYTES/100 LEUKOCYTES IN BLOOD CELLAVISION 0.0 % Normal 0.0-0.0 [facility] Comment on above: Performed By: #### L [id number] ####[facility] ([facility])[address] [place] [address] 30on 07-09-2024 30 Normal [facility] BASIC METABOLIC PANELon 06-16 Anion gap [Moles/Vol] 9 mmol/L Normal 7-20 [facility] Comment on above: Performed By: #### L [id number] ####[facility] ([facility])[address] [place] [address] Calcium [Mass/Vol] 7.6 mg/dL Low 8.6-10.3 [facility] Comment on above: Performed By: #### L [id number] ####[facility] ([facility])[address] [place] [address] Chloride [Moles/Vol] 103 mmol/L Normal 98-107 [facility] Comment on above: Performed By: #### L [id number] ####[facility] ([facility])[address] [place] [address] CO2 [Moles/Vol] 25 mmol/L Normal 21-31 [facility] Comment on above: Performed By: #### L [id number] ####[facility] ([facility])[address] [place] [address] Creatinine [Mass/Vol] 0.57 mg/dL Low 0.60-1.20 [facility] Comment on above: Performed By: #### L [id number] ####[facility] ([facility])[address] [place] [address] GLOMERULAR FILTRATION RATE ML/MIN/1.73 SQ M.PREDICTED 91.2 mL/min/1.73m*2 Normal >60.0 [facility] Comment on above: Result Comment: The [facility]???s estimated glomerular filtration rate (eGFR) will no [...] of individuals. Performed By: #### L [id number] ####[facility] ([facility])[address] [place] [address] Glucose [Mass/Vol] 92 mg/dL Normal 70-100 [facility] Comment on above: Performed By: #### L [id number] ####[facility] ([facility])[address] [place] [address] Potassium [Moles/Vol] 3.2 mmol/L Low 3.5-5.1 [facility] Comment on above: Performed By: #### L [id number] ####[facility] ([facility])[address] [place] [address] Sodium [Moles/Vol] 134 mmol/L Low 136-145 [facility] Comment on above: Performed By: #### L [id number] ####[facility] ([facility])[address] [place] [address] Urea nitrogen [Mass/Vol] 9 mg/dL Normal 7-25 [facility] Comment on above: Performed By: #### L [id number] ####[facility] ([facility])[address] [place] [address] UREA NITROGEN/CREATININ E (MASS RATIO) IN SER/PLAS 15.8 Normal [facility] Comment on above: Performed By: #### L [id number] ####[facility] ([facility])[address] [place] [address] CBC WITH AUTO DIFFERENTIALon 07-09-2024 Erythrocyte distribution width (RBC) [Ratio] 23.0 % High 11.5-15.0 [facility] Comment on above: Performed By: #### L [id number] ####[facility] ([facility])[address] [place] [address] ERYTHROCYTE MEAN CORPUSCULAR HEMOGLOBIN CONCENTRATION (G/DL) BY AUTOMATED 31.9 g/dL Low 32.0-35.0 [facility] Comment on above: Performed By: #### L [id number] ####[facility] ([facility])[address] [place] [address] Hematocrit (Bld) [Volume fraction] 25.4 % Low 36.0-48.0 [facility] Comment on above: Performed By: #### L [id number] ####[facility] ([facility])[address] [place] [address] Hemoglobin (Bld) [Mass/Vol] 8.1 g/dL Low 12.0-15.0 [facility] Comment on above: Performed By: #### L [id number] ####[facility] ([facility])[address] [place] [address] MCH (RBC) [Entitic mass] 29.6 pg Normal 27.0-33.0 [facility] Comment on above: Performed By: #### L [id number] ####[facility] ([facility])[address] [place] [address] MCV (RBC) [Entitic vol] 92.7 fL Normal 82.0-98.0 [facility] Comment on above: Performed By: #### L [id number] ####[facility] ([facility])[address] [place] [address] NRBC (PER 100 WBCS) BY AUTOMATED COUNT 0.0 % Normal 0 [facility] Comment on above: Performed By: #### L [id number] ####[facility] ([facility])[address] [place] [address] PLATELETS (10*3/UL) IN BLOOD AUTOMATED COUNT 370 10*3/uL Normal 150-400 [facility] Comment on above: Performed By: #### L [id number] ####[facility] ([facility])[address] [place] [address] RBC (Bld) [#/Vol] 2.74 10*6/uL Low 3.80-5.00 [facility] Comment on above: Performed By: #### L [id number] ####[facility] ([facility])[address] [place] [address] WBC (Bld) [#/Vol] 17.11 10*3/uL High 4.00-10.60 [facility] Comment on above: Performed By: #### L [id number] ####[facility] ([facility])[address] [place] [address] HEPATIC FUNCTION PANELon Albumin [Mass/Vol] 2.1 g/dL Low 3.5-5.7 [facility] Comment on above: Performed By: #### L [id number] ####[facility] ([facility])[address] [place], [place] [address] ALP [Catalytic activity/Vol] 612 U/L High 34-104 [facility] Comment on above: Performed By: #### L [id number] ####[facility] ([facility])[address] [place] [address] ALT [Catalytic activity/Vol] 60 U/L High 7-52 [facility] Comment on above: Performed By: #### L [id number] ####[facility] ([facility])[address] [place] [address] AST [Catalytic activity/Vol] 64 U/L High 13-39 [facility] Comment on above: Performed By: #### L [id number] ####[facility] ([facility])[address] [place] [address] Bilirubin [Mass/Vol] 6.0 mg/dL High 0.3-1.0 [facility] Comment on above: Performed By: #### L [id number] ####[facility] ([facility])[address] [place] [address] Magnesium [Mass/Vol] 3.6 mg/dL High 0-0.2 [facility] Comment on above: Performed By: #### L [id number] ####[facility] ([facility])[address] [place] [address] Protein [Mass/Vol] 4.2 g/dL Low 6.0-8.3 [facility] Comment on above: Performed By: #### L [id number] ####[facility] ([facility])[address] [place] [address] MANUAL DIFFERENTIALon 2024 ANISOCYTOSIS PRESENCE IN BLOOD BY LIGHT MICROSCOPY Marked Normal [facility] Comment on above: Performed By: #### L [id number] ####[facility] ([facility])[address] [place] [address] BASOPHILS (10*3/UL) IN BLOOD BY CALCULATION 0.09 10*3/uL Normal 0.00-0.20 [facility] Comment on above: Performed By: #### L [id number] ####[facility] ([facility])[address] [place] [address] BASOPHILS/100 LEUKOCYTES IN BLOOD BY AUTOMATED COUNT 0.5 % Normal 0.0-1.0 [facility] Comment on above: Performed By: #### L [id number] ####[facility] ([facility])[address] [place] [address] EOSINOPHILS (10*3/UL) IN BLOOD BY CALCULATION 0.63 10*3/uL High 0.00-0.50 [facility] Comment on above: Performed By: #### L [id number] ####[facility] ([facility])[address] [place] [address] EOSINOPHILS/100 LEUKOCYTES IN BLOOD BY AUTOMATED COUNT 3.7 % Normal 0.0-6.0 [facility] Comment on above: Performed By: #### L [id number] ####[facility] ([facility])[address] [place] [address] IMMATURE GRANULOCYTES (10*3/UL) IN BLOOD BY CALCULATION 0.58 10*3/uL High 0.00-0.20 [facility] Comment on above: Performed By: #### L [id number] ####[facility] ([facility])[address] [place] [address] IMMATURE GRANULOCYTES/100 LEUKOCYTES IN BLOOD BY AUTOMATED COUNT 3.4 % High 0.0-1.0 [facility] Comment on above: Performed By: #### L [id number] ####[facility] ([facility])[address] [place] [address] LYMPHOCYTES (10*3/UL) IN BLOOD BY CALCULATION 2.77 10*3/uL Normal 1.20-4.00 [facility] Comment on above: Performed By: #### L [id number] ####[facility] ([facility])[address] [place] [address] LYMPHOCYTES/100 LEUKOCYTES IN BLOOD BY AUTOMATED COUNT 16.2 % Low 20.0-45.0 [facility] Comment on above: Performed By: #### L [id number] ####[facility] ([facility])[address] [place] [address] MONOCYTES (10*3/UL) IN BLOOD BY CALCUATION 1.40 10*3/uL High 0.10-1.00 [facility] Comment on above: Performed By: #### L [id number] ####[facility] ([facility])[address] [place] [address] MONOCYTES/100 LEUKOCYTES IN BLOOD BY AUTOMATED COUNT 8.2 % Normal 5.0-12.0 [facility] Comment on above: Performed By: #### L [id number] ####[facility] ([facility])[address] [place] [address] NEUTROPHILS (10*3/UL) IN BLOOD BY CALCULATION 11.6 10*3/uL High 1.6-7.6 [facility] Comment on above: Performed By: #### L [id number] ####[facility] ([facility])[address] [place] [address] NEUTROPHILS/100 LEUKOCYTES IN BLOOD BY AUTOMATED COUNT 68.0 % Normal 40.0-72.0 [facility] Comment on above: Performed By: #### L [id number] ####[facility] ([facility])[address] [place] [address] POIKILOCYTOSIS (PRESENCE) IN BLOOD BY LIGHT MICROSCOPY Slight Normal [facility] Comment on above: Performed By: #### L [id number] ####[facility] ([facility])[address] [place] [address] POLYCHROMASIA IN BLOOD BY LIGHT MICROSCOPY Slight Normal [facility] Comment on above: Performed By: #### L [id number] ####[facility] ([facility])[address] [place] [address] [id number] 07-08-2024 [id number] Normal [facility] 30on 07-08-2024 30 Normal [facility] 30 Normal [facility] 30 Normal [facility] ANESon 07-08-2024 ANES Normal [facility] ANES Normal [facility] BASIC METABOLIC PANELon 06-16 Anion gap [Moles/Vol] 7 mmol/L Normal 7-20 [facility] Comment on above: Performed By: #### L [id number] ####[facility] ([facility])[address] [place] [address] Calcium [Mass/Vol] 7.7 mg/dL Low 8.6-10.3 [facility] Comment on above: Performed By: #### L [id number] ####[facility] ([facility])[address] [place] [address] Chloride [Moles/Vol] 102 mmol/L Normal 98-107 [facility] Comment on above: Performed By: #### L [id number] ####[facility] ([facility])[address] [place] [address] CO2 [Moles/Vol] 28 mmol/L Normal 21-31 [facility] Comment on above: Performed By: #### L [id number] ####[facility] ([facility])[address] [place] [address] Creatinine [Mass/Vol] 0.60 mg/dL Normal 0.60-1.20 [facility] Comment on above: Performed By: #### L [id number] ####[facility] ([facility])[address] [place] [address] GLOMERULAR FILTRATION RATE ML/MIN/1.73 SQ M.PREDICTED 90.1 mL/min/1.73m*2 Normal >60.0 [facility] Comment on above: Result Comment: [facility]???s estimated glomerular filtration rate (eGFR) will no [...] of individuals. Performed By: #### L [id number] ####[facility] ([facility])[address] [place] [address] Glucose [Mass/Vol] 92 mg/dL Normal 70-100 [facility] Comment on above: Performed By: #### L [id number] ####[facility] ([facility])[address] [place] [address] Potassium [Moles/Vol] 3.5 mmol/L Normal 3.5-5.1 [facility] Comment on above: Performed By: #### L [id number] ####[facility] ([facility])[address] [place] [address] Sodium [Moles/Vol] 133 mmol/L Low 136-145 [facility] Comment on above: Performed By: #### L [id number] ####[facility] ([facility])[address] [place] [address] Urea nitrogen [Mass/Vol] 8 mg/dL Normal 7-25 [facility] Comment on above: Performed By: #### L [id number] ####[facility] ([facility])[address] [place] [address] UREA NITROGEN/CREATININ E (MASS RATIO) IN SER/PLAS 13.3 Normal [facility] Comment on above: Performed By: #### L [id number] ####[facility] ([facility])[address] [place] [address] CBCon 07-08-2024 Erythrocyte distribution width (RBC) [Ratio] 23.3 % High 11.5-15.0 [facility] Comment on above: Performed By: #### L [id number] ####[facility] ([facility])[address] [place] [address] ERYTHROCYTE MEAN CORPUSCULAR HEMOGLOBIN CONCENTRATION (G/DL) BY AUTOMATED 31.7 g/dL Low 32.0-35.0 [facility] Comment on above: Performed By: #### L [id number] ####[facility] ([facility])[address] [place] [address] Hematocrit (Bld) [Volume fraction] 26.5 % Low 36.0-48.0 [facility] Comment on above: Performed By: #### L [id number] ####[facility] ([facility])[address] [place] [address] Hemoglobin (Bld) [Mass/Vol] 8.4 g/dL Low 12.0-15.0 [facility] Comment on above: Performed By: #### L [id number] ####[facility] ([facility])[address] [place] [address] MCH (RBC) [Entitic mass] 29.3 pg Normal 27.0-33.0 [facility] Comment on above: Performed By: #### L [id number] ####[facility] ([facility])[address] [place], [place] [address] MCV (RBC) [Entitic vol] 92.3 fL Normal 82.0-98.0 [facility] Comment on above: Performed By: #### L [id number] ####[facility] ([facility])[address] [place], [place] [address] PLATELETS (10*3/UL) IN BLOOD AUTOMATED COUNT 342 10*3/uL Normal 150-400 [facility] Comment on above: Performed By: #### L [id number] ####[facility] ([facility])[address] [place] [address] RBC (Bld) [#/Vol] 2.87 10*6/uL Low 3.80-5.00 [facility] Comment on above: Performed By: #### L [id number] ####[facility] ([facility])[address] [place] [address] WBC (Bld) [#/Vol] 17.81 10*3/uL High 4.00-10.60 [facility] Comment on above: Performed By: #### L [id number] ####[facility] ([facility])[address] [place] [address] HEPATIC FUNCTION PANELon Albumin [Mass/Vol] 2.1 g/dL Low 3.5-5.7 [facility] Comment on above: Performed By: #### L [id number] ####[facility] ([facility])[address] [place] [address] ALP [Catalytic activity/Vol] 517 U/L High 34-104 [facility] Comment on above: Performed By: #### L [id number] ####[facility] ([facility])[address] [place] [address] ALT [Catalytic activity/Vol] 68 U/L High 7-52 [facility] Comment on above: Performed By: #### L [id number] ####[facility] ([facility])[address] [place] [address] AST [Catalytic activity/Vol] 56 U/L High 13-39 [facility] Comment on above: Performed By: #### L [id number] ####[facility] ([facility])[address] [place] [address] Bilirubin [Mass/Vol] 6.5 mg/dL High 0.3-1.0 [facility] Comment on above: Performed By: #### L [id number] ####[facility] ([facility])[address] [place] [address] Magnesium [Mass/Vol] 3.9 mg/dL High 0-0.2 [facility] Comment on above: Performed By: #### L [id number] ####[facility] ([facility])[address] [place] [address] Protein [Mass/Vol] 4.2 g/dL Low 6.0-8.3 [facility] Comment on above: Performed By: #### L [id number] ####[facility] ([facility])[address] [place] [address] HISTOLOGY - TISSUE EXAMon LAB AP CASE REPORT Normal [facility] Comment on above: Result Comment: Surg ical Pathology Case: [id number] Provider: Bradley Pope MD Collected: 07/08/2024 1203Ordering Location: [address] Urology Received: 07/08/2024 1453Pathologist: DALY Hadleypecimens: A) - Rectum, RECTUM MASS RULE OUT MALIGNANCY B) - Rectum, RECTAL MASS BIOPSY #2 Performed By: #### L [id number] ####[facility] ([facility])[address] [place] [address] LAB AP CLINICAL INFORMATION Order Diagnoses [facility] Comment on above: Result Comment: W19. XXXA - Fall, initial encounter [ICD-10-CM]R17 - Jaundice [ICD-10-CM]E80.6 - Hyperbilirubinemia [ICD-10-CM]K92.2 - Gastrointestinal hemorrhage, unspecified gastrointestinal hemorrhage type [ICD-10-CM]R79.89 - Abnormal LFTs [ICD-10-CM]K85.90 - Acute pancreatitis, unspecified complication status, unspecified pancreatitis type [ICD-10-CM]K92.2 - GI bleed [ICD-10-CM]I10 - Primary hypertension [ICD-10-CM]K29.81 - Gastrointestinal hemorrhage associated with duodenitis [ICD-10-CM]K62.89 - Rectal mass [ICD-10-CM] Performed By: #### L [id number] ####[facility] ([facility])[address] [place] [address] LAB AP GROSS DESCRIPTION A. Rectum. [facility] Comment on above: Result Comment: Rece ived in formalin labeled Ellinor Mick Covella, RECTUM MASS RULE OUT MALIGNANCY multiple castillo-brown mucosal tissue fragments measuring 4.0 x 0.9 x 0.5 cm in aggregate. The specimen is submitted entirely in one cassette. The smaller fragments may not survive tissue processing.Mira Campbell, PGY-1B. Rectum.Received in formalin labeled Ellinor M Covella, RECTAL MASS BIOPSY #2 is 1 castillo-brown mucosal tissue fragment measuring 0.5 x 0.4 x 0.4 cm. The specimen is submitted entirely in one cassette.Mira Campbell, PGY-1 Performed By: #### L [id number] ####[facility] ([facility])[address] [place] [address] LAB AP MICROSCOPIC DESCRIPTION Microscopic examination performed. 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 Colon, rectal mass #2, biopsy: - Tubular adenoma Performed By: #### L [id number] ####[facility] ([facility])[address] [place] [address] HPon 07-08-2024 HP Normal [facility] NURSNOTEon 07-08-2024 NURSNOTE All positioning santo fernie removed pt remains supine. Normal [facility] CBCon 07-07-2024 Erythrocyte distribution width (RBC) [Ratio] 23.5 % High 11.5-15.0 [facility] Comment on above: Performed By: #### L [id number] ####[facility] ([facility])[address] [place] [address] ERYTHROCYTE MEAN CORPUSCULAR HEMOGLOBIN CONCENTRATION (G/DL) BY AUTOMATED 32.8 g/dL Normal 32.0-35.0 [facility] Comment on above: Performed By: #### L [id number] ####[facility] ([facility])[address] [place] [address] Hematocrit (Bld) [Volume fraction] 25.3 % Low 36.0-48.0 [facility] Comment on above: Performed By: #### L [id number] ####[facility] ([facility])[address] [place] [address] Hemoglobin (Bld) [Mass/Vol] 8.3 g/dL Low 12.0-15.0 [facility] Comment on above: Performed By: #### L [id number] ####[facility] ([facility])[address] [address] MCH (RBC) [Entitic mass] 29.5 pg Normal 27.0-33.0 [facility] Comment on above: Performed By: #### L [id number] ####[facility] ([facility])[address] [place] [address] MCV (RBC) [Entitic vol] 90.0 fL Normal 82.0-98.0 [facility] Comment on above: Performed By: #### L [id number] ####[facility] ([facility])[address] [place] [address] PLATELETS (10*3/UL) IN BLOOD AUTOMATED COUNT 282 10*3/uL Normal 150-400 [facility] Comment on above: Performed By: #### L [id number] ####[facility] ([facility])[address] [place] [address] RBC (Bld) [#/Vol] 2.81 10*6/uL Low 3.80-5.00 [facility] Comment on above: Performed By: #### L [id number] ####[facility] ([facility])[address] [place] [address] WBC (Bld) [#/Vol] 21.62 10*3/uL High 4.00-10.60 [facility] Comment on above: Performed By: #### L [id number] ####[facility] ([facility])[address] [place] [address] COMPREHENSIVE METABOLIC PANE Rigoberto 07-07-2024 Albumin [Mass/Vol] 2.1 g/dL Low 3.5-5.7 [facility] Comment on above: Performed By: #### L [id number] ####[facility] ([facility])[address] [place] [address] ALP [Catalytic activity/Vol] 505 U/L High 34-104 [facility] Comment on above: Performed By: #### L [id number] ####[facility] ([facility])[address] [place] [address] ALT [Catalytic activity/Vol] 83 U/L High 7-52 [facility] Comment on above: Performed By: #### L [id number] ####[facility] ([facility])[address] [place] [address] Anion gap [Moles/Vol] 10 mmol/L Normal 7-20 [facility] Comment on above: Performed By: #### L [id number] ####[facility] ([facility])[address] [place] [address] AST [Catalytic activity/Vol] 62 U/L High 13-39 [facility] Comment on above: Performed By: #### L [id number] ####[facility] ([facility])[address] [place] [address] Bilirubin [Mass/Vol] 7.7 mg/dL High 0.3-1.0 [facility] Comment on above: Performed By: #### L [id number] ####[facility] ([facility] [place] [address] Calcium [Mass/Vol] 7.8 mg/dL Low 8.6-10.3 [facility] Comment on above: Performed By: #### L [id number] ####[facility] ([facility])[address] [place] [address] Chloride [Moles/Vol] 102 mmol/L Normal 98-107 [facility] Comment on above: Performed By: #### L [id number] ####[facility] ([facility])[address] [place] [address] CO2 [Moles/Vol] 27 mmol/L Normal 21-31 [facility] Comment on above: Performed By: #### L [id number] ####[facility] ([facility])[address] [place] [address] Creatinine [Mass/Vol] 0.63 mg/dL Normal 0.60-1.20 [facility] Comment on above: Performed By: #### L [id number] ####[facility] ([facility])[address] [place] [address] GLOMERULAR FILTRATION RATE ML/MIN/1.73 SQ M.PREDICTED 89.1 mL/min/1.73m*2 Normal >60.0 [facility] Comment on above: Result Comment: The [facility]???s estimated glomerular filtration rate (eGFR) will no [...] of individuals. Performed By: #### L [id number] ####[facility] ([facility])[address] [place] [address] Glucose [Mass/Vol] 91 mg/dL Normal 70-100 [facility] Comment on above: Performed By: #### L [id number] ####[facility] ([facility])[address] [place] [address] Potassium [Moles/Vol] 3.6 mmol/L Normal 3.5-5.1 [facility] Comment on above: Performed By: #### L [id number] ####[facility] ([facility])[address] [place] [address] Protein [Mass/Vol] 4.1 g/dL Low 6.0-8.3 [facility] Comment on above: Performed By: #### L [id number] ####[facility] ([facility])[address] [place] [address] Sodium [Moles/Vol] 135 mmol/L Low 136-145 [facility] Comment on above: Performed By: #### L [id number] ####[facility] ([facility])[address] [place] [address] Urea nitrogen [Mass/Vol] 11 mg/dL Normal 7-25 [facility] Comment on above: Performed By: #### L [id number] ####[facility] ([facility])[address] [place] [address] UREA NITROGEN/CREATININ E (MASS RATIO) IN SER/PLAS 17.5 Normal [facility] Comment on above: Performed By: #### L [id number] ####[facility] ([facility])[address] [place] [address] PROTIME-INRon 07-07-2024 INR IN PPP BY COAGULATION ASSAY 1.03 Normal 0.90-1.10 [facility] Comment on above: Result Comment: ACCC P [...] CHEST 1995;[id number]. Performed By: #### L [id number] ####[facility] [employer])[address] [place] [address] PROTHROMBIN TIME (PT) IN PPP BY COAGULATION ASSAY 13.5 Seconds Normal 12.3-14.8 [facility] Comment on above: Performed By: #### L [id number] ####[facility] ([employer])[address] [place] [address] TYPE AND SCREENon 07-07-2024 AB SCREEN Negative Normal [facility] Comment on above: Performed By: #### L [id number] ####[facility], ABO group Nom (Bld) O Normal [facility] Comment on above: Performed By: #### L [id number] ####[facility], RH TYPE IN BLOOD Positive Normal [facility] Comment on above: Performed By: #### L [id number] ####[facility], 30on 07-06-2024 30 Normal [facility] 30 The patient is Moder ately Stable - Low risk of patient condition declining or worsening The patient's goals for the shift include comfort The clinical goals for the shift include stable vitals Normal [facility] BLOOD CULTUREon 07-06-2024 Bacteria identified Cx Nom (Bld) No growth at 5 days Normal [facility] Comment on above: Performed By: #### L [id number] ####[facility] ([facility])[address] [place] [address] C-REACTIVE PROTEINon 025 C REACTIVE PROTEIN (MG/L) IN SER/PLAS 121.9 mg/L High <=5.0 [facility] Comment on above: Result Comment: Test ing performed using a new methodology, turbidimetry. Normal ranges have been updated. Old normal range was <8 mg/L. Performed By: #### L [id number] ####[facility] ([facility])[address] [place] [address] CBCon 07-06-2024 Erythrocyte distribution width (RBC) [Ratio] 23.8 % High 11.5-15.0 [facility] Comment on above: Performed By: #### L [id number] ####[facility] ([facility])[address] [place] [address] ERYTHROCYTE MEAN CORPUSCULAR HEMOGLOBIN CONCENTRATION (G/DL) BY AUTOMATED 31.9 g/dL Low 32.0-35.0 [facility] Comment on above: Performed By: #### L [id number] ####[facility] ([facility])[address] [place] [address] Hematocrit (Bld) [Volume fraction] 25.7 % Low 36.0-48.0 [facility] Comment on above: Performed By: #### L [id number] ####[facility] ([facility])[address] [place] [address] Hemoglobin (Bld) [Mass/Vol] 8.2 g/dL Low 12.0-15.0 [facility] Comment on above: Performed By: #### L [id number] ####[facility] ([facility])[address] [place] [address] MCH (RBC) [Entitic mass] 28.9 pg Normal 27.0-33.0 [facility] Comment on above: Performed By: #### L [id number] ####[facility] ([facility])[address] [place] [address] MCV (RBC) [Entitic vol] 90.5 fL Normal 82.0-98.0 [facility] Comment on above: Performed By: #### L [id number] ####[facility] ([facility])[address] [place] [address] PLATELETS (10*3/UL) IN BLOOD AUTOMATED COUNT 258 10*3/uL Normal 150-400 [facility] Comment on above: Performed By: #### L [id number] ####[facility] ([facility])[address] [place] [address] RBC (Bld) [#/Vol] 2.84 10*6/uL Low 3.80-5.00 [facility] Comment on above: Performed By: #### L [id number] ####[facility] ([facility])[address] [place] [address] WBC (Bld) [#/Vol] 25.48 10*3/uL High 4.00-10.60 [facility] Comment on above: Performed By: #### L [id number] ####[facility] ([facility])[address] [place] [address] COMPREHENSIVE METABOLIC PANE Rigoberto 07-06-2024 Albumin [Mass/Vol] 2.2 g/dL Low 3.5-5.7 [facility] Comment on above: Performed By: #### L [id number] ####[facility] ([facility])[address] [place] [address] ALP [Catalytic activity/Vol] 555 U/L High 34-104 [facility] Comment on above: Performed By: #### L [id number] ####[facility] ([facility])[address] [place] [address] ALT [Catalytic activity/Vol] 105 U/L High 7-52 [facility] Comment on above: Performed By: #### L [id number] ####[facility] ([facility])[address] [place] [address] Anion gap [Moles/Vol] 9 mmol/L Normal 7-20 [facility] Comment on above: Performed By: #### L [id number] ####[facility] ([facility])[address] [place] [address] AST [Catalytic activity/Vol] 83 U/L High 13-39 [facility] Comment on above: Performed By: #### L [id number] ####[facility] ([facility])[address] [place] [address] Bilirubin [Mass/Vol] 8.7 mg/dL High 0.3-1.0 [facility] Comment on above: Performed By: #### L [id number] ####[facility] ([facility])[address] [place] [address] Calcium [Mass/Vol] 7.6 mg/dL Low 8.6-10.3 [facility] Comment on above: Performed By: #### L [id number] ####[facility] ([facility])[address] [place] [address] Chloride [Moles/Vol] 103 mmol/L Normal 98-107 [facility] Comment on above: Performed By: #### L [id number] ####[facility] ([facility])[address] [place] [address] CO2 [Moles/Vol] 24 mmol/L Normal 21-31 [facility] Comment on above: Performed By: #### L [id number] ####[facility] ([facility])[address] [place] [address] Creatinine [Mass/Vol] 0.78 mg/dL Normal 0.60-1.20 [facility] Comment on above: Performed By: #### L [id number] ####[facility] ([facility])[address] [place] [address] GLOMERULAR FILTRATION RATE ML/MIN/1.73 SQ M.PREDICTED 76.3 mL/min/1.73m*2 Normal >60.0 [facility] Comment on above: Result Comment: The [facility]???s estimated glomerular filtration rate (eGFR) will no [...] of individuals. Performed By: #### L [id number] ####[facility] ([facility])[address] [place] [address] Glucose [Mass/Vol] 105 mg/dL High 70-100 [facility] Comment on above: Performed By: #### L [id number] ####[facility] ([facility])[address] [place] [address] Potassium [Moles/Vol] 3.6 mmol/L Normal 3.5-5.1 [facility] Comment on above: Performed By: #### L [id number] ####[facility] ([facility])[address] [place] [address] Protein [Mass/Vol] 4.1 g/dL Low 6.0-8.3 [facility] Comment on above: Performed By: #### L [id number] ####[facility] ([facility])[address] [place] [address] Sodium [Moles/Vol] 132 mmol/L Low 136-145 [facility] Comment on above: Performed By: #### L [id number] ####[facility] ([facility])[address] [place] [address] Urea nitrogen [Mass/Vol] 15 mg/dL Normal 7-25 [facility] Comment on above: Performed By: #### L [id number] ####[facility] ([facility])[address] [place] [address] UREA NITROGEN/CREATININ E (MASS RATIO) IN SER/PLAS 19.2 Normal [facility] Comment on above: Performed By: #### L [id number] ####[facility] ([facility])[address] [place] [address] 30on 07-05-2024 30 Normal [facility] 30 Normal [facility] BASIC METABOLIC PANELon - Anion gap [Moles/Vol] 8 mmol/L Normal 7-20 [facility] Comment on above: Performed By: #### L [id number] ####[facility] ([facility])[address] [place] [address] Calcium [Mass/Vol] 7.5 mg/dL Low 8.6-10.3 [facility] Comment on above: Performed By: #### L [id number] ####[facility] ([facility])[address] [place] [address] Chloride [Moles/Vol] 103 mmol/L Normal 98-107 [facility] Comment on above: Performed By: #### L [id number] ####[facility] ([facility])[address] [place] [address] CO2 [Moles/Vol] 25 mmol/L Normal 21-31 [facility] Comment on above: Performed By: #### L [id number] ####[facility] ([facility])[address] [place] [address] Creatinine [Mass/Vol] 0.86 mg/dL Normal 0.60-1.20 [facility] Comment on above: Performed By: #### L [id number] ####[facility] ([facility])[address] [place] [address] GLOMERULAR FILTRATION RATE ML/MIN/1.73 SQ M.PREDICTED 67.8 mL/min/1.73m*2 Normal >60.0 [facility] Comment on above: Result Comment: [facility]???s estimated glomerular filtration rate (eGFR) will no [...] of individuals. Performed By: #### L [id number] ####[facility] ([facility])[address] [place] [address] Glucose [Mass/Vol] 110 mg/dL High 70-100 [facility] Comment on above: Performed By: #### L [id number] ####[facility] ([facility])[address] [place] [address] Potassium [Moles/Vol] 3.5 mmol/L Normal 3.5-5.1 [facility] Comment on above: Performed By: #### L [id number] ####[facility] ([facility])[address] [place] [address] Sodium [Moles/Vol] 132 mmol/L Low 136-145 [facility] Comment on above: Performed By: #### L [id number] ####[facility] ([facility])[address] [place] [address] Urea nitrogen [Mass/Vol] 17 mg/dL Normal 7-25 [facility] Comment on above: Performed By: #### L [id number] ####[facility] ([facility])[address] [place] [address] UREA NITROGEN/CREATININ E (MASS RATIO) IN SER/PLAS 19.8 Normal [facility] Comment on above: Performed By: #### L [id number] ####[facility] ([facility])[address] [place] [address] CBCon 07-05-2024 Erythrocyte distribution width (RBC) [Ratio] 24.0 % High 11.5-15.0 [facility] Comment on above: Performed By: #### L [id number] ####[facility] ([facility])[address] [place] [address] ERYTHROCYTE MEAN CORPUSCULAR HEMOGLOBIN CONCENTRATION (G/DL) BY AUTOMATED 31.6 g/dL Low 32.0-35.0 [facility] Comment on above: Performed By: #### L [id number] ####[facility] ([facility])[address] [place] [address] Hematocrit (Bld) [Volume fraction] 27.2 % Low 36.0-48.0 [facility] Comment on above: Performed By: #### L [id number] ####[facility] ([facility])[address] [place] [address] Hemoglobin (Bld) [Mass/Vol] 8.6 g/dL Low 12.0-15.0 [facility] Comment on above: Performed By: #### L [id number] ####[facility] ([facility])[address] [address] MCH (RBC) [Entitic mass] 28.7 pg Normal 27.0-33.0 [facility] Comment on above: Performed By: #### L [id number] ####[facility] ([facility])[address] [address] MCV (RBC) [Entitic vol] 90.7 fL Normal 82.0-98.0 [facility] Comment on above: Performed By: #### L [id number] ####[facility] ([facility])[address] [place] [address] PLATELETS (10*3/UL) IN BLOOD AUTOMATED COUNT 261 10*3/uL Normal 150-400 [facility] Comment on above: Performed By: #### L [id number] ####[facility] ([facility])[address] [place] [address] RBC (Bld) [#/Vol] 3.00 10*6/uL Low 3.80-5.00 [facility] Comment on above: Performed By: #### L [id number] ####[facility] ([facility])[address] [place] [address] WBC (Bld) [#/Vol] 29.48 10*3/uL High 4.00-10.60 [facility] Comment on above: Performed By: #### L [id number] ####[facility] ([facility])[address] [place] [address] CONSULTon 07-05-2024 CONSULT Normal [facility] HEPATIC FUNCTION PANELon Albumin [Mass/Vol] 2.2 g/dL Low 3.5-5.7 [facility] Comment on above: Performed By: #### L [id number] ####[facility] ([facility])[address] [place] [address] ALP [Catalytic activity/Vol] 649 U/L High 34-104 [facility] Comment on above: Performed By: #### L [id number] ####[facility] ([facility])[address] [place] [address] ALT [Catalytic activity/Vol] 130 U/L High 7-52 [facility] Comment on above: Performed By: #### L [id number] ####[facility] ([facility])[address] [place] [address] AST [Catalytic activity/Vol] 128 U/L High 13-39 [facility] Comment on above: Performed By: #### L [id number] ####[facility] ([facility])[address] [place] [address] Bilirubin [Mass/Vol] 8.7 mg/dL High 0.3-1.0 [facility] Comment on above: Performed By: #### L [id number] ####[facility] ([facility])[address] [place] [address] Magnesium [Mass/Vol] 5.2 mg/dL High 0-0.2 [facility] Comment on above: Performed By: #### L [id number] ####[facility] ([facility])[address] [place] [address] Protein [Mass/Vol] 4.1 g/dL Low 6.0-8.3 [facility] Comment on above: Performed By: #### L [id number] ####[facility] ([facility])[address] [place] [address] LACTATE DEHYDROGENASEon 06-16 LACTATE DEHYDROGENASE (U/L) IN SER/PLAS BY LAC->PYR RXN 136 U/L Low 140-271 [facility] Comment on above: Performed By: #### L [id number] ####[facility] ([facility])[address] [place] [address] RETICULOCYTE PANELon 025 HEMOGLOBIN (PG) IN RETICULOCYTES 36.6 pg High 28.0-36.0 [facility] Comment on above: Performed By: #### L [id number] ####[facility] ([facility])[address] [place] [address] IMMATURE RETICULOCYTE FRACTION (%) 34.0 % High 2-16 [facility] Comment on above: Performed By: #### L [id number] ####[facility] ([facility])[address] [place] [address] RETICULOCYTES (10*6/UL) IN BLOOD 0.2965 10*6/uL High 0.0250-0.1 000 [facility] Comment on above: Performed By: #### L [id number] ####[facility] ([facility])[address] [place] [address] Reticulocytes/100 RBC (Bld) 9.69 % High 0.50-1.80 [facility] Comment on above: Performed By: #### L [id number] ####[facility] ([facility])[address] [place] [address] 30on 07-04-2024 30 Normal [facility] 30 Normal [facility] AFP TUMOR MARKERon 5 ALPHA FETOPROTEIN TUMOR MARKER 5 ng/mL Normal 0-9 [facility] Comment on above: Result Comment: INTE RPRETIVE INFORMATION: Alpha Fetoprotein Tumor MarkerThe Brett Beth Access DxI AFP method is used. Resultsobtained [...] gender-specific referenceintervals for this test in the [employer] [facility] Test Directory(640 Labs).Performed By: [facility] [place], [place] [id number] Director: Issa Segura MD, PhDCLIA Number: [id number] Performed By: #### L [id number] ####[facility] (BEAKER)[address] [place] [address] BASIC METABOLIC PANELon 02-2 0-2024 Anion gap [Moles/Vol] 8 mmol/L Normal 7-20 [facility] Comment on above: Performed By: #### L [id number] ####[facility] (BEAKER)[address] [facility] [address] Calcium [Mass/Vol] 7.7 mg/dL Low 8.6-10.3 [facility] Comment on above: Performed By: #### L [id number] ####[facility] (BEAKER)[address] [facility] [address] Chloride [Moles/Vol] 104 mmol/L Normal 98-107 [facility] Comment on above: Performed By: #### L [id number] ####[facility] (BEAKER)[address] [place] [address] CO2 [Moles/Vol] 24 mmol/L Normal 21-31 [facility] Comment on above: Performed By: #### L [id number] ####[facility] (BEAKER)[address] [place] [address] Creatinine [Mass/Vol] 0.76 mg/dL Normal 0.60-1.20 [facility] Comment on above: Performed By: #### L [id number] ####[facility] ([facility])[address] [place] [address] GLOMERULAR FILTRATION RATE ML/MIN/1.73 SQ M.PREDICTED 78.7 mL/min/1.73m*2 Normal >60.0 [facility] Comment on above: Result Comment: The [facility]???s estimated glomerular filtration rate (eGFR) will no [...] of individuals. Performed By: #### L [id number] ####[facility] ([facility])[address] [place] [address] Glucose [Mass/Vol] 106 mg/dL High 70-100 [facility] Comment on above: Performed By: #### L [id number] ####[facility] ([facility])[address] [place] [address] Potassium [Moles/Vol] 4.0 mmol/L Normal 3.5-5.1 [facility] Comment on above: Performed By: #### L [id number] ####[facility] ([facility])[address] [place] [address] Sodium [Moles/Vol] 132 mmol/L Low 136-145 [facility] Comment on above: Performed By: #### L [id number] ####[facility] ([facility])[address] [place] [address] Urea nitrogen [Mass/Vol] 16 mg/dL Normal 7-25 [facility] Comment on above: Performed By: #### L [id number] ####[facility] ([facility])[address] [place] [address] UREA NITROGEN/CREATININ E (MASS RATIO) IN SER/PLAS 21.1 Normal [facility] Comment on above: Performed By: #### L [id number] ####[facility] ([facility])[address] [place] [address] BLOOD CULTUREon 07-04-2024 Amoxicillin+Clavul anate [Susc] <=4/2 Susceptible [facility] Comment on above: Performed By: #### L [id number] ####[facility] ([facility])[address] [place] [address] Ampicillin [Susc] <=4 Susceptible [facility] Comment on above: Performed By: #### L [id number] ####[facility] ([facility])[address] [place] [address] Ampicillin+Sulbact am [Susc] 2/1 Susceptible [facility] Comment on above: Performed By: #### L [id number] ####[facility] ([facility])[address] [place] [address] Bacteria identified Cx Nom (Bld) No growth at 5 days Normal [facility] Comment on above: Order Comment: From a different site than #1. Performed By: #### L [id number] ####[facility] ([facility])[address] [place] [address] Beta lactamase.extended spectrum [Susc] Negative Invalid Interpretation Code [facility] Comment on above: Performed By: #### L [id number] ####[facility] ([facility])[address] [place] [address] ceFAZolin [Susc] Susceptible [facility] Comment on above: Performed By: #### L [id number] ####[facility] ([facility])[address] [place] [address] cefTRIAXone [Susc] <=1 Susceptible [facility] Comment on above: Performed By: #### L [id number] ####[facility] ([facility])[address] [place] [address] Ciprofloxacin [Susc] <=0.25 Susceptible [facility] Comment on above: Performed By: #### L [id number] ####[facility] ([facility])[address] [place] [address] Gentamicin [Susc] <=2 Susceptible [facility] Comment on above: Performed By: #### L [id number] ####[facility] ([facility])[address] [place] [address] Tobramycin [Susc] <=2 Susceptible [facility] Comment on above: Performed By: #### L [id number] ####[facility] ([facility])[address] [place] [address] Trimethoprim+Sulfa methoxazole [Susc] <=0.5/9.5 Susceptible [facility] Comment on above: Performed By: #### L [id number] ####[facility] ([facility])[address] [place] [address] BLOOD CULTURE IDENTIFICATION PCR PANEL, AEROBICon 07-04-2024 ACINETOBACTER CALCOACETICUS-MANJIT ANNII COMPLEX DNA PCR Not detected Normal Not Detected [facility] Comment on above: Order Comment: The B [...] testing of isolates. Performed By: #### L [id number] ####[facility] ([facility])[address] [place] [address] BACTEROIDES FRAGILIS DNA BY PCR Not detected Normal Not Detected [facility] Comment on above: Order Comment: The B [...] testing of isolates. Performed By: #### L [id number] ####[facility] ([facility])[address] [facility] [address] EMERALD ALBICANS DNA BY PCR Not detected Normal Not Detected [facility] Comment on above: Order Comment: The B [...] testing of isolates. Performed By: #### L [id number] ####[facility] ([facility])[address] [place] [address] EMERALD AURIS DNA BY PCR Not detected Normal Not Detected [facility] Comment on above: Order Comment: The B [...] testing of isolates. Performed By: #### L [id number] ####[facility] ([facility])[address] [place] [address] EMERALD GLABRATA DNA BY PCR Not detected Normal Not Detected [facility] Comment on above: Order Comment: The B [...] testing of isolates. Performed By: #### L [id number] ####[facility] ([facility])[address] [place] [address] EMERALD KRUSEI DNA BY PCR Not detected Normal Not Detected [facility] Comment on above: Order Comment: The B [...] testing of isolates. Performed By: #### L [id number] ####[facility] ([facility])[address] [place] [address] EMERALD PARAPSILOSIS DNA BY PCR Not detected Normal Not Detected [facility] Comment on above: Order Comment: The B [...] testing of isolates. Performed By: #### L [id number] ####[facility] ([facility])[address] [place] [address] EMERALD TROPICALIS DNA BY PCR Not detected Normal Not Detected [facility] Comment on above: Order Comment: The B [...] testing of isolates. Performed By: #### L [id number] ####[facility] ([facility])[address] [facility] [address] CRYPTOCOCCUS NEOFORMANS/GATTII DNA BY PCR Not detected Normal Not Detected [facility] Comment on above: Order Comment: The B 2UFire BCID2 is a multiplexed nucleic acid test [...] testing of isolates. Performed By: #### L [id number] ####[facility] ([facility])[address] [place] [address] CTX-M GENE BY PCR Not detected Normal Not Detected [facility] Comment on above: Order Comment: The B [...] testing of isolates. Performed By: #### L [id number] ####[facility] ([facility])[address] [place] [address] ENTEROBACTER CLOACAE COMPLEX DNA BY PCR Not detected Normal Not Detected [facility] Comment on above: Order Comment: The B [...] testing of isolates. Performed By: #### L [id number] ####[facility] ([facility])[address] [place] [address] ENTEROBACTERALES DNA BY PCR Detected Critically abnormal Not Detected [facility] Comment on above: Order Comment: The B [...] testing of isolates. Performed By: #### L [id number] ####[facility] ([facility])[address] [facility] [address] ENTEROCOCCUS FAECALIS DNA BY PCR Not detected Normal Not Detected [facility] Comment on above: Order Comment: The B 2UFire BCID2 is a multiplexed nucleic acid test [...] testing of isolates. Performed By: #### L [id number] ####[facility] ([facility])[address] [place] [address] ENTEROCOCCUS FAECIUM DNA BY PCR Not detected Normal Not Detected [facility] Comment on above: Order Comment: The B [...] testing of isolates. Performed By: #### L [id number] ####[facility] ([facility])[address] [place] [address] ESCHERICHIA COLI DNA BY PCR Detected Critically abnormal Not Detected [facility] Comment on above: Order Comment: The B [...] testing of isolates. Performed By: #### L [id number] ####[facility] ([facility])[address] [place] [address] HAEMOPHILUS INFLUENZAE DNA BY PCR Not detected Normal Not Detected [facility] Comment on above: Order Comment: The B [...] testing of isolates. Performed By: #### L [id number] ####[facility] ([facility])[address] [place] [address] IMP GENE BY PCR Not detected Normal Not Detected [facility] Comment on above: Order Comment: The B 2UFire BCID2 is a multiplexed nucleic acid test [...] testing of isolates. Performed By: #### L [id number] ####[facility] ([facility])[address] [place] [address] KLEBSIELLA AEROGENES DNA BY PCR Not detected Normal Not Detected [facility] Comment on above: Order Comment: The B 2UFire BCID2 is a multiplexed nucleic acid test [...] testing of isolates. Performed By: #### L [id number] ####[facility] ([facility])[address] [place] [address] KLEBSIELLA OXYTOCA DNA BY PCR Not detected Normal Not Detected [facility] Comment on above: Order Comment: The B 2UFire BCID2 is a multiplexed nucleic acid test [...] testing of isolates. Performed By: #### L [id number] ####[facility] ([facility])[address] [place] [address] KLEBSIELLA PNEUMONIAE GROUP DNA BY PCR Not detected Normal Not Detected [facility] Comment on above: Order Comment: The B 2UFire BCID2 is a multiplexed nucleic acid test [...] testing of isolates. Performed By: #### L [id number] ####[facility] ([facility])[address] [place] [address] KPC GENE BY PCR Not detected Normal Not Detected [facility] Comment on above: Order Comment: The Global [employer] TechnologiesFire BCID2 is a multiplexed nucleic acid test [...] testing of isolates. Performed By: #### L [id number] ####[facility] ([facility])[address] [place] [address] LISTERIA MONOCYTOGENES DNA BY PCR Not detected Normal Not Detected [facility] Comment on above: Order Comment: The [employer] TechnologiesFire BCID2 is a multiplexed nucleic acid test [...] testing of isolates. Performed By: #### L [id number] ####[facility] ([facility])[address] [place] [address] MCR-1 GENE BY PCR Not detected Normal Not Detected [facility] Comment on above: Order Comment: The [employer] AGe BCID2 is a multiplexed nucleic acid test [...] testing of isolates. Performed By: #### L [id number] ####[facility] ([facility])[address] [place] [address] NDM GENE BY PCR Not detected Normal Not Detected [facility] Comment on above: Order Comment: The B 2UFire BCID2 is a multiplexed nucleic acid test [...] testing of isolates. Performed By: #### L [id number] ####[facility] ([facility])[address] [place] [address] NEISSERIA MENINGITIDIS DNA BY PCR Not detected Normal Not Detected [facility] Comment on above: Order Comment: The B 2UFire BCID2 is a multiplexed nucleic acid test [...] testing of isolates. Performed By: #### L [id number] ####[facility] ([facility])[address] [place] [address] OXA-48-LIKE GENE BY PCR Not detected Normal Not Detected [facility] Comment on above: Order Comment: The B 2UFire BCID2 is a multiplexed nucleic acid test [...] testing of isolates. Performed By: #### L [id number] ####[facility] ([facility])[address] [place] [address] PROTEUS SPP. DNA BY PCR Not detected Normal Not Detected [facility] Comment on above: Order Comment: The B 2UFire BCID2 is a multiplexed nucleic acid test [...] testing of isolates. Performed By: #### L [id number] ####[facility] ([facility])[address] [place] [address] PSEUDOMONAS AERUGINOSA DNA BY PCR Not detected Normal Not Detected [facility] Comment on above: Order Comment: The B [...] testing of isolates. Performed By: #### L [id number] ####[facility] ([facility])[address] [place] [address] SALMONELLA SPP. DNA BY PCR Not detected Normal Not Detected [facility] Comment on above: Order Comment: The B [...] testing of isolates. Performed By: #### L [id number] ####[facility] ([facility])[address] [place] [address] SERRATIA MARCESCENS DNA BY PCR Not detected Normal Not Detected [facility] Comment on above: Order Comment: The B [...] testing of isolates. Performed By: #### L [id number] ####[facility] ([facility])[address] [place] [address] STAPHYLOCOCCUS AUREUS DNA BY PCR Not detected Normal Not Detected [facility] Comment on above: Order Comment: The B 2UFire BCID2 is a multiplexed nucleic acid test [...] testing of isolates. Performed By: #### L [id number] ####[facility] ([facility])[address] [place] [address] STAPHYLOCOCCUS EPIDERMIDIS DNA BY PCR Not detected Normal Not Detected [facility] Comment on above: Order Comment: The B [...] testing of isolates. Performed By: #### L [id number] ####[facility] ([facility])[address] [place] [address] STAPHYLOCOCCUS LUGDUNENSIS DNA BY PCR Not detected Normal Not Detected [facility] Comment on above: Order Comment: The B [...] testing of isolates. Performed By: #### L [id number] ####[facility] ([facility])[address] [place] [address] STAPHYLOCOCCUS SPP. DNA BY PCR Not detected Normal Not Detected [facility] Comment on above: Order Comment: The B [...] testing of isolates. Performed By: #### L [id number] ####[facility] ([facility])[address] [place] [address] STENOTROPHOMONAS MALTOPHILIA DNA BY PCR Not detected Normal Not Detected [facility] Comment on above: Order Comment: The B [...] testing of isolates. Performed By: #### L [id number] ####[facility] ([facility])[address] [place] [address] STREPTOCOCCUS AGALACTIAE (GROUP B) DNA BY PCR Not detected Normal Not Detected [facility] Comment on above: Order Comment: The B [...] testing of isolates. Performed By: #### L [id number] ####[facility] ([facility])[address] [place] [address] STREPTOCOCCUS PNEUMONIAE DNA BY PCR Not detected Normal Not Detected [facility] Comment on above: Order Comment: The B [...] testing of isolates. Performed By: #### L [id number] ####[facility] ([facility])[address] [place] [address] STREPTOCOCCUS PYOGENES (GROUP A) DNA BY PCR Not detected Normal Not Detected [facility] Comment on above: Order Comment: The B [...] testing of isolates. Performed By: #### L [id number] ####[facility] ([facility])[address] [place] [address] STREPTOCOCCUS SPP. DNA BY PCR Not detected Normal Not Detected [facility] Comment on above: Order Comment: The B [...] testing of isolates. Performed By: #### L [id number] ####[facility] ([facility])[address] [place] [address] VIM GENE BY PCR Not detected Normal Not Detected [facility] Comment on above: Order Comment: The B [...] testing of isolates. Performed By: #### L [id number] ####[facility] ([facility])[address] [place] [address] CANCER ANTIGEN 19-9on 2024 CANCER AG 19-9 (U/ML) IN SER/PLAS <2 Normal <=35 [facility] Comment on above: Result Comment: INTE RPRETIVE INFORMATION: Cancer Antigen-GI (CA 19-9)This test uses Jami CA 19-9 electrochemiluminescent immunoassay.Results obtained with different test methods or kits cannot beused interchangeably. CA 19-9 value is useful in monitoringpancreatic, hepatobiliary, gastric, hepatocellular, and colorectalcancer. CA 19-9 value, regardless of level, should not beinterpreted as absolute evidence of the presence or absence ofmalignant disease.Performed By: [facility] [address] [place], [place] [id number] Director: Issa Segura MD, PhDCLIA Number: [id number] Performed By: #### L [id number] ####[facility] ([facility])[address] [place] [address] CBC WITH AUTO DIFFERENTIALon 07-04-2024 Erythrocyte distribution width (RBC) [Ratio] 23.9 % High 11.5-15.0 [facility] Comment on above: Performed By: #### L [id number] ####[facility] ([facility])[address] [place] [address] ERYTHROCYTE MEAN CORPUSCULAR HEMOGLOBIN CONCENTRATION (G/DL) BY AUTOMATED 32.1 g/dL Normal 32.0-35.0 [facility] Comment on above: Performed By: #### L [id number] ####[facility] ([facility])[address] [place] [address] Hematocrit (Bld) [Volume fraction] 27.7 % Low 36.0-48.0 [facility] Comment on above: Performed By: #### L [id number] ####[facility] ([facility])[address] [place] [address] Hemoglobin (Bld) [Mass/Vol] 8.9 g/dL Low 12.0-15.0 [facility] Comment on above: Performed By: #### L [id number] ####[facility] ([facility])[address] [place] [address] MCH (RBC) [Entitic mass] 28.3 pg Normal 27.0-33.0 [facility] Comment on above: Performed By: #### L [id number] ####[facility] ([facility])[address] [place] [address] MCV (RBC) [Entitic vol] 87.9 fL Normal 82.0-98.0 [facility] Comment on above: Performed By: #### L [id number] ####[facility] (BEAKER)[address] [place] [address] NRBC (PER 100 WBCS) BY AUTOMATED COUNT 0.0 % Normal 0 [facility] Comment on above: Performed By: #### L [id number] ####[facility] ([facility])[address] [place] [address] PLATELETS (10*3/UL) IN BLOOD AUTOMATED COUNT 281 10*3/uL Normal 150-400 [facility] Comment on above: Performed By: #### L [id number] ####[facility] ([facility])[address] [place] [address] RBC (Bld) [#/Vol] 3.15 10*6/uL Low 3.80-5.00 [facility] Comment on above: Performed By: #### L [id number] ####[facility] ([facility])[address] [place] [address] WBC (Bld) [#/Vol] 20.22 10*3/uL High 4.00-10.60 [facility] Comment on above: Performed By: #### L [id number] ####[facility] ([facility])[address] [place] [address] CEAon 07-04-2024 CARCINOEMBRYONIC AG (NG/ML) IN SER/PLAS 2.2 ng/mL Normal 0-3 [facility] Comment on above: Performed By: #### L [id number] ####[facility] ([facility])[address] [place] [address] CONSULTon 07-04-2024 CONSULT Normal [facility] FERRITINon 07-04-2024 FERRITIN (NG/ML) IN SER/PLAS 502.0 ng/mL High 11.0-307.0 [facility] Comment on above: Performed By: #### L [id number] ####[facility] ([facility])[address] [place] [address] FOLATEon 07-04-2024 FOLATE (NG/ML) IN SER/PLAS 10.35 ng/mL Normal 6.6-1000 [facility] Comment on above: Performed By: #### L [id number] ####[facility] ([facility])[address] [place] [address] HEPATIC FUNCTION PANELon Albumin [Mass/Vol] 2.4 g/dL Low 3.5-5.7 [facility] Comment on above: Performed By: #### L [id number] ####[facility] ([facility])[address] [place] [address] ALP [Catalytic activity/Vol] 800 U/L High 34-104 [facility] Comment on above: Performed By: #### L [id number] ####[facility] ([facility])[address] [place] [address] ALT [Catalytic activity/Vol] 154 U/L High 7-52 [facility] Comment on above: Performed By: #### L [id number] ####[facility] ([facility])[address] [place] [address] AST [Catalytic activity/Vol] 145 U/L High 13-39 [facility] Comment on above: Performed By: #### L [id number] ####[facility] ([facility])[address] [place] [address] Bilirubin [Mass/Vol] 8.8 mg/dL High 0.3-1.0 [facility] Comment on above: Performed By: #### L [id number] ####[facility] ([facility])[address] [place] [address] Magnesium [Mass/Vol] 5.1 mg/dL High 0-0.2 [facility] Comment on above: Performed By: #### L [id number] ####[facility] ([facility])[address] [place] [address] Protein [Mass/Vol] 4.3 g/dL Low 6.0-8.3 [facility] Comment on above: Performed By: #### L [id number] ####[facility] ([facility])[address] [place] [address] IRON AND TIBCon 07-04-2024 IRON (UG/DL) IN SER/PLAS 84 ug/dL Normal 50-212 [facility] Comment on above: Performed By: #### L [id number] ####[facility] ([facility]PAGE [facility])[address] [place] [address] IRON BINDING CAPACITY (UG/DL) IN SER/PLAS 188 ug/dL Low 250-450 [facility] Comment on above: Performed By: #### L [id number] ####[facility] ([facility])[address] [place] [address] IRON BINDING CAPACITY.UNSATURAT ED (UG/DL) IN SER/PLAS 104.0 ug/dL Low 155.0-355. 0 [facility] Comment on above: Performed By: #### L [id number] ####[facility] ([facility])[address] [place] [address] IRON SATURATION (%) IN SER/PLAS 45 % Normal 20-50 [facility] Comment on above: Performed By: #### L [id number] ####[facility] ([facility])[address] [place] [address] LACTIC ACID WITH 4 HOUR REFL EXon 07-04-2024 LACTATE (MMOL/L) IN SER/PLAS 1.6 mmol/L Normal 0.5-2.2 [facility] Comment on above: Performed By: #### L [id number] ####[facility] ([facility])[address] [place] [address] MAGNESIUMon 07-04-2024 Magnesium [Mass/Vol] 1.7 mg/dL Low 1.9-2.7 [facility] Comment on above: Performed By: #### L [id number] ####[facility] ([facility])[address] [place] [address] MANUAL DIFFERENTIALon 2024 BASOPHILS (10*3/UL) IN BLOOD BY CALCULATION 0.14 10*3/uL Normal 0.00-0.20 [facility] Comment on above: Performed By: #### L [id number] ####[facility] ([facility])[address] [place] [address] BASOPHILS/100 LEUKOCYTES IN BLOOD BY AUTOMATED COUNT 0.7 % Normal 0.0-1.0 [facility] Comment on above: Performed By: #### L [id number] ####[facility] ([facility])[address] [place] [address] EOSINOPHILS (10*3/UL) IN BLOOD BY CALCULATION 0.95 10*3/uL High 0.00-0.50 [facility] Comment on above: Performed By: #### L [id number] ####[facility] ([facility])[address] [place] [address] EOSINOPHILS/100 LEUKOCYTES IN BLOOD BY AUTOMATED COUNT 4.7 % Normal 0.0-6.0 [facility] Comment on above: Performed By: #### L [id number] ####[facility] ([facility])[address] [place] [address] LYMPHOCYTES (10*3/UL) IN BLOOD BY CALCULATION 1.76 10*3/uL Normal 1.20-4.00 [facility] Comment on above: Performed By: #### L [id number] ####[facility] ([facility])[address] [place] [address] LYMPHOCYTES/100 LEUKOCYTES IN BLOOD BY AUTOMATED COUNT 8.7 % Low 20.0-45.0 [facility] Comment on above: Performed By: #### L [id number] ####[facility] ([facility])[address] [place] [address] MONOCYTES (10*3/UL) IN BLOOD BY CALCUATION 0.26 10*3/uL Normal 0.10-1.00 [facility] Comment on above: Performed By: #### L [id number] ####[facility] ([facility])[address] [place] [address] MONOCYTES/100 LEUKOCYTES IN BLOOD BY AUTOMATED COUNT 1.3 % Low 5.0-12.0 [facility] Comment on above: Performed By: #### L [id number] ####[facility] ([facility])[address] [place] [address] MYELOCYTES (10*3/UL) IN BLOOD BY CALCULATION 0.26 10*3/uL High 0.00 [facility] Comment on above: Performed By: #### L [id number] ####[facility] ([facility])[address] [place] [address] MYELOCYTES/100 LEUKOCYTES IN BLOOD CELLAVISION 1.3 % High 0.0-0.0 [facility] Comment on above: Performed By: #### L [id number] ####[facility] ([facility])[address] [place] [address] NEUTROPHILS (10*3/UL) IN BLOOD BY CALCULATION 16.8 10*3/uL High 1.6-7.6 [facility] Comment on above: Performed By: #### L [id number] ####[facility] ([facility])[address] [place] [address] NEUTROPHILS/100 LEUKOCYTES IN BLOOD BY AUTOMATED COUNT 83.3 % High 40.0-72.0 [facility] Comment on above: Performed By: #### L [id number] ####[facility] ([facility])[address] [place] [address] PLASMA CELLS/100 LEUKOCYTES IN BLOOD 0 % Normal 0 [facility] Comment on above: Performed By: #### L [id number] ####[facility] ([facility])[address] [place] [address] PLATELETS GIANT PRESENCE IN BLOOD BY LIGHT MICROSCOPY Present Normal [facility] Comment on above: Performed By: #### L [id number] ####[facility] ([facility])[address] [place] [address] VARIANT LYMPHOCYTES (10*3/UL) IN BLOOD BY CALCULATION 0.00 10*3/uL Normal 0.00 [facility] Comment on above: Performed By: #### L [id number] ####[facility] ([facility])[address] [place] [address] VARIANT LYMPHOCYTES/100 LEUKOCYTES IN BLOOD CELLAVISION 0.0 % Normal 0.0-0.0 [facility] Comment on above: Performed By: #### L [id number] ####[facility] ([facility])[address] [place] [address] NURSNOTEon 07-04-2024 NURSNOTE Normal [facility] NURSNOTE Normal [facility] NURSNOTE RN notifed DR Cano about pt shaking/ feeling weak. RN took a new temp it was 100F and ordered lactate and BC. RN recheck the temp is now 100.2F RN told DR Diaz and RN was told to tell DR when its 100.4F Normal [facility] VITAMIN B12on 07-04-2024 Cobalamin (Vitamin B12) [Mass/Vol] 1533 pg/mL High 180-914 [facility] Comment on above: Result Comment: REFE RENCE RANGES:180-914 pg/mL Fktzet667-364 pg/mL Indeterminate<145 pg/mL Deficient Performed By: #### L [id number] ####[facility] ([facility])[address] [place] [address] 30on 07-03-2024 30 The patient is Moder ately Stable - Low risk of patient condition declining or worsening The patient's goals for the shift include comfort The clinical goals for the shift include comfort, rest [facility] 30 The patient is Moder ately Stable - Low risk of patient condition declining or worsening The patient's goals for the shift include comfort The clinical goals for the shift include comfort, rest [facility] ANESon 07-03-2024 ANES Normal [facility] BASIC METABOLIC PANELon 06-15 Anion gap [Moles/Vol] 10 mmol/L Normal 7-20 [facility] Comment on above: Performed By: #### L [id number] ####[facility] ([facility])[address] [place] [address] Calcium [Mass/Vol] 7.6 mg/dL Low 8.6-10.3 [facility] Comment on above: Performed By: #### L [id number] ####[facility] ([facility])[address] [place] [address] Chloride [Moles/Vol] 105 mmol/L Normal 98-107 [facility] Comment on above: Performed By: #### L [id number] ####[facility] ([facility])[address] [place] [address] CO2 [Moles/Vol] 21 mmol/L Normal 21-31 [facility] Comment on above: Performed By: #### L [id number] ####[facility] ([facility])[address] [place] [address] Creatinine [Mass/Vol] 0.72 mg/dL Normal 0.60-1.20 [facility] Comment on above: Performed By: #### L [id number] ####[facility] ([facility])[address] [place] [address] GLOMERULAR FILTRATION RATE ML/MIN/1.73 SQ M.PREDICTED 83.9 mL/min/1.73m*2 Normal >60.0 [facility] Comment on above: Result Comment: The [facility]???s estimated glomerular filtration rate (eGFR) will no [...] of individuals. Performed By: #### L [id number] ####[facility] ([facility])[address] [place] [address] Glucose [Mass/Vol] 128 mg/dL High 70-100 [facility] Comment on above: Performed By: #### L [id number] ####[facility] ([facility])[address] [place] [address] Potassium [Moles/Vol] 3.2 mmol/L Low 3.5-5.1 [facility] Comment on above: Performed By: #### L [id number] ####[facility] ([facility])[address] [place] [address] Sodium [Moles/Vol] 133 mmol/L Low 136-145 [facility] Comment on above: Performed By: #### L [id number] ####[facility] ([facility])[address] [place] [address] Urea nitrogen [Mass/Vol] 20 mg/dL Normal 7-25 [facility] Comment on above: Performed By: #### L [id number] ####[facility] ([facility])[address] [place] [address] UREA NITROGEN/CREATININ E (MASS RATIO) IN SER/PLAS 27.8 Normal [facility] Comment on above: Performed By: #### L [id number] ####[facility] ([facility])[address] [place] [address] CBC WITH AUTO DIFFERENTIALon 07-03-2024 Erythrocyte distribution width (RBC) [Ratio] 23.9 % High 11.5-15.0 [facility] Comment on above: Performed By: #### L [id number] ####[facility] ([facility])[address] [place] [address] ERYTHROCYTE MEAN CORPUSCULAR HEMOGLOBIN CONCENTRATION (G/DL) BY AUTOMATED 32.7 g/dL Normal 32.0-35.0 [facility] Comment on above: Performed By: #### L [id number] ####[facility] ([facility])[address] [place] [address] Hematocrit (Bld) [Volume fraction] 27.2 % Low 36.0-48.0 [facility] Comment on above: Performed By: #### L [id number] ####[facility] ([facility])[address] [place] [address] MCH (RBC) [Entitic mass] 27.7 pg Normal 27.0-33.0 [facility] Comment on above: Performed By: #### L [id number] ####[facility] ([facility])[address] [place] [address] MCV (RBC) [Entitic vol] 84.7 fL Normal 82.0-98.0 [facility] Comment on above: Performed By: #### L [id number] ####[facility] ([facility])[address] [place], [place] [address] NRBC (PER 100 WBCS) BY AUTOMATED COUNT 0.1 % High 0 [facility] Comment on above: Performed By: #### L [id number] ####[facility] ([facility])[address] [place] [address] PLATELETS (10*3/UL) IN BLOOD AUTOMATED COUNT 266 10*3/uL Normal 150-400 [facility] Comment on above: Performed By: #### L [id number] ####[facility] ([facility])[address] [place] [address] RBC (Bld) [#/Vol] 3.21 10*6/uL Low 3.80-5.00 [facility] Comment on above: Performed By: #### L [id number] ####[facility] ([facility])[address] [place] [address] WBC (Bld) [#/Vol] 19.30 10*3/uL High 4.00-10.60 [facility] Comment on above: Performed By: #### L [id number] ####[facility] ([facility])[address] [place] [address] HEMOGLOBIN AND HEMATOCRIT, B LOODon 07-03-2024 Hematocrit (Bld) [Volume fraction] 27.3 % Low 36.0-48.0 [facility] Comment on above: Performed By: #### L [id number] ####[facility] ([facility])[address] [place] [address] Hemoglobin (Bld) [Mass/Vol] 8.9 g/dL Low 12.0-15.0 [facility] Comment on above: Performed By: #### L [id number] ####[facility] ([facility])[address] [place] [address] Performed By: #### L [id number] ####[facility] ([facility])[address] [place] [address] HEPATIC FUNCTION PANELon Albumin [Mass/Vol] 2.4 g/dL Low 3.5-5.7 [facility] Comment on above: Performed By: #### L [id number] ####[facility] ([facility])[address] [place] [address] ALP [Catalytic activity/Vol] 746 U/L High 34-104 [facility] Comment on above: Performed By: #### L [id number] ####[facility] ([facility])[address] [place] [address] ALT [Catalytic activity/Vol] 168 U/L High 7-52 [facility] Comment on above: Performed By: #### L [id number] ####[facility] ([facility])[address] [place] [address] AST [Catalytic activity/Vol] 158 U/L High 13-39 [facility] Comment on above: Performed By: #### L [id number] ####[facility] ([facility])[address] [place] [address] Bilirubin [Mass/Vol] 9.5 mg/dL High 0.3-1.0 [facility] Comment on above: Performed By: #### L [id number] ####[facility] ([facility])[address] [place] [address] Magnesium [Mass/Vol] 5.7 mg/dL High 0-0.2 [facility] Comment on above: Performed By: #### L [id number] ####[facility] ([facility])[address] [place] [address] Protein [Mass/Vol] 4.2 g/dL Low 6.0-8.3 [facility] Comment on above: Performed By: #### L [id number] ####[facility] ([facility])[address] [place] [address] MAGNESIUMon 07-03-2024 Magnesium [Mass/Vol] 1.7 mg/dL Low 1.9-2.7 [facility] Comment on above: Performed By: #### L [id number] ####[facility] ([facility])[address] [place] [address] MANUAL DIFFERENTIALon 2024 ANISOCYTOSIS PRESENCE IN BLOOD BY LIGHT MICROSCOPY Marked Normal [facility] Comment on above: Performed By: #### L [id number] ####[facility] ([facility])[address] [place] [address] BASOPHILS (10*3/UL) IN BLOOD BY CALCULATION 0.00 10*3/uL Normal 0.00-0.20 [facility] Comment on above: Performed By: #### L [id number] ####[facility] ([facility])[address] [place] [address] BASOPHILS/100 LEUKOCYTES IN BLOOD BY AUTOMATED COUNT 0.0 % Normal 0.0-1.0 [facility] Comment on above: Performed By: #### L [id number] ####[facility] ([facility])[address] [place] [address] EOSINOPHILS (10*3/UL) IN BLOOD BY CALCULATION 0.14 10*3/uL Normal 0.00-0.50 [facility] Comment on above: Performed By: #### L [id number] ####[facility] ([facility])[address] [place] [address] EOSINOPHILS/100 LEUKOCYTES IN BLOOD BY AUTOMATED COUNT 0.7 % Normal 0.0-6.0 [facility] Comment on above: Performed By: #### L [id number] ####[facility] ([facility])[address] [place] [address] LYMPHOCYTES (10*3/UL) IN BLOOD BY CALCULATION 2.22 10*3/uL Normal 1.20-4.00 [facility] Comment on above: Performed By: #### L [id number] ####[facility] ([facility])[address] [place] [address] LYMPHOCYTES/100 LEUKOCYTES IN BLOOD BY AUTOMATED COUNT 11.5 % Low 20.0-45.0 [facility] Comment on above: Performed By: #### L [id number] ####[facility] ([facility])[address] [place] [address] METAMYELOCYTES (10*3/UL) IN BLOOD BY CALCULATION 0.27 10*3/uL High 0.00 [facility] Comment on above: Performed By: #### L [id number] ####[facility] ([facility])[address] [place] [address] METAMYELOCYTES/100 LEUKOCYTES IN BLOOD CELLAVISION 1.4 % High 0.0-0.0 [facility] Comment on above: Performed By: #### L [id number] ####[facility] ([facility])[address] [place] [address] MONOCYTES (10*3/UL) IN BLOOD BY CALCUATION 0.39 10*3/uL Normal 0.10-1.00 [facility] Comment on above: Performed By: #### L [id number] ####[facility] ([facility])[address] [place] [address] MONOCYTES/100 LEUKOCYTES IN BLOOD BY AUTOMATED COUNT 2.0 % Low 5.0-12.0 [facility] Comment on above: Performed By: #### L [id number] ####[facility] ([facility])[address] [place] [address] MYELOCYTES (10*3/UL) IN BLOOD BY CALCULATION 0.25 10*3/uL High 0.00 [facility] Comment on above: Performed By: #### L [id number] ####[facility] ([facility])[address] [place] [address] MYELOCYTES/100 LEUKOCYTES IN BLOOD CELLAVISION 1.3 % High 0.0-0.0 [facility] Comment on above: Performed By: #### L [id number] ####[facility] ([facility])[address] [place] [address] NEUTROPHILS (10*3/UL) IN BLOOD BY CALCULATION 16.0 10*3/uL High 1.6-7.6 [facility] Comment on above: Performed By: #### L [id number] ####[facility] ([facility])[address] [place] [address] NEUTROPHILS/100 LEUKOCYTES IN BLOOD BY AUTOMATED COUNT 83.1 % High 40.0-72.0 [facility] Comment on above: Performed By: #### L [id number] ####[facility] ([facility])[address] [place] [address] PLASMA CELLS/100 LEUKOCYTES IN BLOOD 0 % Normal 0 [facility] Comment on above: Performed By: #### L [id number] ####[facility] ([facility])[address] [place] [address] PLATELETS GIANT PRESENCE IN BLOOD BY LIGHT MICROSCOPY Present Normal [facility] Comment on above: Performed By: #### L [id number] ####[facility] ([facility])[address] [place] [address] POIKILOCYTOSIS (PRESENCE) IN BLOOD BY LIGHT MICROSCOPY Slight Normal [facility] Comment on above: Performed By: #### L [id number] ####[facility] ([facility])[address] [place] [address] POLYCHROMASIA IN BLOOD BY LIGHT MICROSCOPY Slight Normal [facility] Comment on above: Performed By: #### L [id number] ####[facility] ([facility])[address] [place] [address] VARIANT LYMPHOCYTES (10*3/UL) IN BLOOD BY CALCULATION 0.00 10*3/uL Normal 0.00 [facility] Comment on above: Performed By: #### L [id number] ####[facility] ([facility])[address] [place] [address] VARIANT LYMPHOCYTES/100 LEUKOCYTES IN BLOOD CELLAVISION 0.0 % Normal 0.0-0.0 [facility] Comment on above: Performed By: #### L [id number] ####[facility] ([facility])[address] [place] [address] Telephoneon 07-03-2024 Telephone [phone] Alissa Kumar 1945 F Date Provider Department [place] 07/03/2024 [facility] No family history on file Normal [facility] [id number] 07-02-2024 [id number] Normal [facility] 30on 07-02-2024 30 The patient is Moder ately Stable - Low risk of patient condition declining or worsening The patient's goals for the shift include The clinical goals for the shift include VSS, Endoscopy Normal [facility] ANESon 07-02-2024 ANES Normal [facility] CBC WITH AUTO DIFFERENTIALon 07-02-2024 Erythrocyte distribution width (RBC) [Ratio] 22.8 % High 11.5-15.0 [facility] Comment on above: Performed By: #### L [id number] ####[facility] ([facility])[address] [place] [address] ERYTHROCYTE MEAN CORPUSCULAR HEMOGLOBIN CONCENTRATION (G/DL) BY AUTOMATED 33.1 g/dL Normal 32.0-35.0 [facility] Comment on above: Performed By: #### L [id number] ####[facility] ([facility])[address] [place] [address] Hematocrit (Bld) [Volume fraction] 27.8 % Low 36.0-48.0 [facility] Comment on above: Performed By: #### L [id number] ####[facility] ([facility])[address] [place] [address] Hemoglobin (Bld) [Mass/Vol] 9.2 g/dL Low 12.0-15.0 [facility] Comment on above: Performed By: #### L [id number] ####[facility] ([facility])[address] [place] [address] MCH (RBC) [Entitic mass] 27.8 pg Normal 27.0-33.0 [facility] Comment on above: Performed By: #### L [id number] ####[facility] ([facility])[address] [place] [address] MCV (RBC) [Entitic vol] 84.0 fL Normal 82.0-98.0 [facility] Comment on above: Performed By: #### L [id number] ####[facility] ([facility])[address] [place] [address] NRBC (PER 100 WBCS) BY AUTOMATED COUNT 0.1 % High 0 [facility] Comment on above: Performed By: #### L [id number] ####[facility] ([facility])[address] [place] [address] PLATELETS (10*3/UL) IN BLOOD AUTOMATED COUNT 262 10*3/uL Normal 150-400 [facility] Comment on above: Performed By: #### L [id number] ####[facility] ([facility])[address] [place] [address] RBC (Bld) [#/Vol] 3.31 10*6/uL Low 3.80-5.00 [facility] Comment on above: Performed By: #### L [id number] ####[facility] ([facility])[address] [place] [address] WBC (Bld) [#/Vol] 19.51 10*3/uL High 4.00-10.60 [facility] Comment on above: Performed By: #### L [id number] ####[facility] ([facility])[address] [place] [address] COMPREHENSIVE METABOLIC PANE Rigoberto 07-02-2024 Albumin [Mass/Vol] 2.2 g/dL Low 3.5-5.7 [facility] Comment on above: Performed By: #### L [id number] ####[facility] ([facility])[address] [place] [address] ALP [Catalytic activity/Vol] 613 U/L High 34-104 [facility] Comment on above: Performed By: #### L [id number] ####[facility] ([facility])[address] [place] [address] ALT [Catalytic activity/Vol] 178 U/L High 7-52 [facility] Comment on above: Performed By: #### L [id number] ####[facility] ([facility])[address] [place] [address] Anion gap [Moles/Vol] 10 mmol/L Normal 7-20 [facility] Comment on above: Performed By: #### L [id number] ####[facility] ([facility])[address] [place] [address] AST [Catalytic activity/Vol] 173 U/L High 13-39 [facility] Comment on above: Performed By: #### L [id number] ####[facility] ([facility])[address] [place] [address] Bilirubin [Mass/Vol] 10.5 mg/dL High 0.3-1.0 [facility] Comment on above: Performed By: #### L [id number] ####[facility] ([facility])[address] [place] [address] Calcium [Mass/Vol] 7.3 mg/dL Low 8.6-10.3 [facility] Comment on above: Performed By: #### L [id number] ####[facility] ([facility])[address] [place] [address] Chloride [Moles/Vol] 111 mmol/L High 98-107 [facility] Comment on above: Performed By: #### L [id number] ####[facility] ([facility])[address] [place] [address] CO2 [Moles/Vol] 21 mmol/L Normal 21-31 [facility] Comment on above: Performed By: #### L [id number] ####[facility] (BEAKER)[address] [place] [address] Creatinine [Mass/Vol] 0.67 mg/dL Normal 0.60-1.20 [facility] Comment on above: Performed By: #### L [id number] ####[facility] ([facility])[address] [place] [address] GLOMERULAR FILTRATION RATE ML/MIN/1.73 SQ M.PREDICTED 87.8 mL/min/1.73m*2 Normal >60.0 [facility] Comment on above: Result Comment: [facility]???s estimated glomerular filtration rate (eGFR) will no [...] of individuals. Performed By: #### L [id number] ####[facility] ([facility])[address] [place] [address] Glucose [Mass/Vol] 87 mg/dL Normal 70-100 [facility] Comment on above: Performed By: #### L [id number] ####[facility] ([facility])[address] [place] [address] Potassium [Moles/Vol] 3.6 mmol/L Normal 3.5-5.1 [facility] Comment on above: Performed By: #### L [id number] ####[facility] ([facility])[address] [place] [address] Protein [Mass/Vol] 3.7 g/dL Low 6.0-8.3 [facility] Comment on above: Performed By: #### L [id number] ####[facility] ([facility])[address] [place] [address] Sodium [Moles/Vol] 138 mmol/L Normal 136-145 [facility] Comment on above: Performed By: #### L [id number] ####[facility] ([facility])[address] [place] [address] Urea nitrogen [Mass/Vol] 28 mg/dL High 7-25 [facility] Comment on above: Performed By: #### L [id number] ####[facility] ([facility])[address] [place] [address] UREA NITROGEN/CREATININ E (MASS RATIO) IN SER/PLAS 41.8 Normal [facility] Comment on above: Performed By: #### L [id number] ####[facility] ([facility])[address] [place] [address] CONSULTon 07-02-2024 CONSULT Normal [facility] HEMOGLOBIN AND HEMATOCRIT, B LOODon 07-02-2024 Hematocrit (Bld) [Volume fraction] 27.7 % Low 36.0-48.0 [facility] Comment on above: Performed By: #### L [id number] ####[facility] ([facility])[address] [place] [address] Hemoglobin (Bld) [Mass/Vol] 9.2 g/dL Low 12.0-15.0 [facility] Comment on above: Performed By: #### L [id number] ####[facility] ([facility])[address] [place] [address] Hematocrit (Bld) [Volume fraction] 26.3 % Low 36.0-48.0 [facility] Comment on above: Performed By: #### L [id number] ####[facility] ([facility])[address] [place] [address] Hemoglobin (Bld) [Mass/Vol] 8.6 g/dL Low 12.0-15.0 [facility] Comment on above: Performed By: #### L [id number] ####[facility] ([facility])[address] [place] [address] Hematocrit (Bld) [Volume fraction] 27.8 % Low 36.0-48.0 [facility] Comment on above: Performed By: #### L [id number] ####[facility] ([facility])[address] [place] [address] Hemoglobin (Bld) [Mass/Vol] 9.1 g/dL Low 12.0-15.0 [facility] Comment on above: Performed By: #### L [id number] ####[facility] ([facility])[address] [place] [address] HPon 07-02-2024 HP Normal [facility] HP Normal [facility] LIPASEon 07-02-2024 LIPASE (U/L) IN SER/PLAS 56 U/L Normal 11-82 [facility] Comment on above: Performed By: #### L [id number] ####[facility] ([facility])[address] [place] [address] MAGNESIUMon 07-02-2024 Magnesium [Mass/Vol] 1.7 mg/dL Low 1.9-2.7 [facility] Comment on above: Performed By: #### L [id number] ####[facility] ([facility])[address] [place] [address] MANUAL DIFFERENTIALon 2024 ANISOCYTOSIS PRESENCE IN BLOOD BY LIGHT MICROSCOPY Moderate Normal [facility] Comment on above: Performed By: #### L [id number] ####[facility] ([facility])[address] [place] [address] BASOPHILS (10*3/UL) IN BLOOD BY CALCULATION 0.00 10*3/uL Normal 0.00-0.20 [facility] Comment on above: Performed By: #### L [id number] ####[facility] ([facility])[address] [place] [address] BASOPHILS/100 LEUKOCYTES IN BLOOD BY AUTOMATED COUNT 0.0 % Normal 0.0-1.0 [facility] Comment on above: Performed By: #### L [id number] ####[facility] ([facility])[address] [place] [address] EOSINOPHILS (10*3/UL) IN BLOOD BY CALCULATION 0.51 10*3/uL High 0.00-0.50 [facility] Comment on above: Performed By: #### L [id number] ####[facility] ([facility])[address] [place] [address] EOSINOPHILS/100 LEUKOCYTES IN BLOOD BY AUTOMATED COUNT 2.6 % Normal 0.0-6.0 [facility] Comment on above: Performed By: #### L [id number] ####[facility] ([facility])[address] [place] [address] LYMPHOCYTES (10*3/UL) IN BLOOD BY CALCULATION 1.29 10*3/uL Normal 1.20-4.00 [facility] Comment on above: Performed By: #### L [id number] ####[facility] ([facility])[address] [place] [address] LYMPHOCYTES/100 LEUKOCYTES IN BLOOD BY AUTOMATED COUNT 6.6 % Low 20.0-45.0 [facility] Comment on above: Performed By: #### L [id number] ####[facility] ([facility])[address] [place] [address] MONOCYTES (10*3/UL) IN BLOOD BY CALCUATION 0.76 10*3/uL Normal 0.10-1.00 [facility] Comment on above: Performed By: #### L [id number] ####[facility] ([facility])[address] [place] [address] MONOCYTES/100 LEUKOCYTES IN BLOOD BY AUTOMATED COUNT 3.9 % Low 5.0-12.0 [facility] Comment on above: Performed By: #### L [id number] ####[facility] ([facility])[address] [place] [address] MYELOCYTES (10*3/UL) IN BLOOD BY CALCULATION 0.14 10*3/uL High 0.00 [facility] Comment on above: Performed By: #### L [id number] ####[facility] ([facility])[address] [place] [address] MYELOCYTES/100 LEUKOCYTES IN BLOOD CELLAVISION 0.7 % High 0.0-0.0 [facility] Comment on above: Performed By: #### L [id number] ####[facility] (BEAK[facility])[address] [place] [address] NEUTROPHILS (10*3/UL) IN BLOOD BY CALCULATION 16.8 10*3/uL High 1.6-7.6 [facility] Comment on above: Performed By: #### L [id number] ####[facility] ([facility])[address] [place] [address] NEUTROPHILS/100 LEUKOCYTES IN BLOOD BY AUTOMATED COUNT 86.2 % High 40.0-72.0 [facility] Comment on above: Performed By: #### L [id number] ####[facility] ([facility])[address] [place] [address] PLASMA CELLS/100 LEUKOCYTES IN BLOOD 0 % Normal 0 [facility] Comment on above: Performed By: #### L [id number] ####[facility] ([facility])[address] [place] [address] PLATELETS GIANT PRESENCE IN BLOOD BY LIGHT MICROSCOPY Present Normal [facility] Comment on above: Performed By: #### L [id number] ####[facility] ([facility])[address] [place] [address] POIKILOCYTOSIS (PRESENCE) IN BLOOD BY LIGHT MICROSCOPY Slight Normal [facility] Comment on above: Performed By: #### L [id number] ####[facility] ([facility])[address] [place] [address] POLYCHROMASIA IN BLOOD BY LIGHT MICROSCOPY Slight Normal [facility] Comment on above: Performed By: #### L [id number] ####[facility] ([facility])[address] [place] [address] VARIANT LYMPHOCYTES (10*3/UL) IN BLOOD BY CALCULATION 0.00 10*3/uL Normal 0.00 [facility] Comment on above: Performed By: #### L [id number] ####[facility] ([facility])[address] [place] [address] VARIANT LYMPHOCYTES/100 LEUKOCYTES IN BLOOD CELLAVISION 0.0 % Normal 0.0-0.0 [facility] Comment on above: Performed By: #### L [id number] ####[facility] ([facility])[address] [place] [address] PROTIME-INRon 07-02-2024 INR IN PPP BY COAGULATION ASSAY 1.28 High 0.90-1.10 [facility] Comment on above: Result Comment: ACCC P [...] CHEST 1995;[id number]. Performed By: #### L [id number] ####[facility] ([employer])[address] [place] [address] PROTHROMBIN TIME (PT) IN PPP BY COAGULATION ASSAY 15.9 Seconds High 12.3-14.8 [facility] Comment on above: Performed By: #### L [id number] ####[facility] ([employer])[address] [facility] [address] URINALYSIS MICROSCOPIC WITH REFLEX CULTUREon 07-02-2024 RBC (#/HPF) IN URINE SEDIMENT 0-2 Normal None Seen, 0-2 [facility] Comment on above: Performed By: #### L [id number] ####[facility] ([employer])[address] [place] [address] SQUAMOUS EPITHELIAL CELLS (#/LPF) IN URINE SEDIMENT Moderate Abnormal None Seen, Occasional , Few [facility] Comment on above: Performed By: #### L [id number] ####[facility] ([employer])[address] [place] [address] WBC (LEUKOCYTE) (#/HPF) IN URINE SEDIMENT 6-10 Abnormal None Seen, 0-2 [facility] Comment on above: Performed By: #### L [id number] ####[facility] (BEAKER)[address] [place] [address] URINALYSIS WITH REFLEX CULTU REon 07-02-2024 BILIRUBIN, TOTAL PRESENCE IN URINE Small Abnormal Negative [facility] Comment on above: Performed By: #### L [id number] ####[facility] (BEAKER)[address] [place] [address] Clarity (U) Clear Normal Clear [facility] Comment on above: Performed By: #### L [id number] ####[facility] ([facility])[address] [place] [address] Color (U) Dark-Yellow Abnormal Colorless, Yellow, Light-Green ow [facility] Comment on above: Performed By: #### L [id number] ####[facility] ([facility])[address] [place] [address] GLUCOSE (MG/DL) IN URINE Normal Normal Normal [facility] Comment on above: Performed By: #### L [id number] ####[facility] ([facility])[address] [place] [address] HEMOGLOBIN PRESENCE IN URINE Moderate Abnormal Negative [facility] Comment on above: Performed By: #### L [id number] ####[facility] ([facility])[address] [place] [address] Ketones Ql (U) Negative Normal Negative [facility] Comment on above: Performed By: #### L [id number] ####[facility] ([facility])[address] [place] [address] LEUKOCYTE ESTERASE PRESENCE IN URINE BY TEST STRIP Negative Normal Negative [facility] Comment on above: Performed By: #### L [id number] ####[facility] ([facility])[address] [place] [address] NITRITE PRESENCE IN URINE Negative Normal Negative [facility] Comment on above: Performed By: #### L [id number] ####[facility] ([facility])[address] [place] [address] pH (U) 5.5 [pH] Normal 5.0-8.0 [facility] Comment on above: Performed By: #### L [id number] ####[facility] ([facility])[address] [place] [address] Protein (U) [Mass/Vol] Negative Normal Negative [facility] Comment on above: Performed By: #### L [id number] ####[facility] ([facility])[address] [place] [address] Specific gravity (U) [Rel density] 1.039 High 1.010-1.03 0 [facility] Comment on above: Performed By: #### L [id number] ####[facility] ([facility])[address] [place] [address] UROBILINOGEN (MG/DL) IN URINE 2.0 mg/dL Abnormal Normal [facility] Comment on above: Performed By: #### L [id number] ####[facility] ([facility])[address] [place] [address] APTTon 07-01-2024 ACTIVATED PARTIAL THROMBOPLASTIN TIME IN PPP BY COAGULATION ASSAY 27.5 Seconds Normal 25.0-35.0 [facility] Comment on above: Result Comment: Clin ical significance of the APTT is questionable in the presence of heparin. Performed By: #### L [id number] ####[facility] ([facility])[address] [place] [address] Anisocytosis LM Ql (Bld)on 0 07-01-2024 Anisocytosis Ql (Bld) Anisocytosis [Presence] in Blood by Light microscopy [facility] BASIC METABOLIC PANELon 06-15 Anion gap [Moles/Vol] 11 mmol/L Normal 7-20 [facility] Comment on above: Performed By: #### L [id number] ####[facility] ([facility])[address] [place] [address] Calcium [Mass/Vol] 7.4 mg/dL Low 8.6-10.3 [facility] Comment on above: Performed By: #### L [id number] ####[facility] ([facility]AK[facility])[address] [place] [address] Chloride [Moles/Vol] 108 mmol/L High 98-107 [facility] Comment on above: Performed By: #### L [id number] ####[facility] ([facility])[address] [place] [address] CO2 [Moles/Vol] 19 mmol/L Low 21-31 [facility] Comment on above: Performed By: #### L [id number] ####[facility] ([facility])[address] [place] [address] Creatinine [Mass/Vol] 0.66 mg/dL Normal 0.60-1.20 [facility] Comment on above: Performed By: #### L [id number] ####[facility] ([facility])[address] [place] [address] GLOMERULAR FILTRATION RATE ML/MIN/1.73 SQ M.PREDICTED 88.1 mL/min/1.73m*2 Normal >60.0 [facility] Comment on above: Result Comment: [facility]???s estimated glomerular filtration rate (eGFR) will no [...] of individuals. Performed By: #### L [id number] ####[facility] ([facility])[address] [place] [address] Glucose [Mass/Vol] 84 mg/dL Normal 70-100 [facility] Comment on above: Performed By: #### L [id number] ####[facility] ([facility]AK[facility])[address] [place] [address] Potassium [Moles/Vol] 3.3 mmol/L Low 3.5-5.1 [facility] Comment on above: Performed By: #### L [id number] ####[facility] ([facility])[address] [place] [address] Sodium [Moles/Vol] 135 mmol/L Low 136-145 [facility] Comment on above: Performed By: #### L [id number] ####[facility] ([facility])[address] [place] [address] Urea nitrogen [Mass/Vol] 30 mg/dL High 7-25 [facility] Comment on above: Performed By: #### L [id number] ####[facility] ([facility])[address] [place] [address] UREA NITROGEN/CREATININ E (MASS RATIO) IN SER/PLAS 45.5 Normal [facility] Comment on above: Performed By: #### L [id number] ####[facility] ([facility])[address] [place] [address] Basophils/100 WBC Manual cnt (Bld)on 07-01-2024 Basophils/100 WBC (Bld) Basophils/100 leukocytes in Blood by Manual count Low 0.2-2.0 [facility] CBC WITH AUTO DIFFERENTIALon 07-01-2024 Erythrocyte distribution width (RBC) [Ratio] 17.7 % High 11.5-15.0 [facility] Comment on above: Performed By: #### L [id number] ####[facility] ([facility])[address] [place] [address] ERYTHROCYTE MEAN CORPUSCULAR HEMOGLOBIN CONCENTRATION (G/DL) BY AUTOMATED 33.5 g/dL Normal 32.0-35.0 [facility] Comment on above: Performed By: #### L [id number] ####[facility] ([facility])[address] [place] [address] Hematocrit (Bld) [Volume fraction] 24.2 % Low 36.0-48.0 [facility] Comment on above: Performed By: #### L [id number] ####[facility] ([facility])[address] [place] [address] Hemoglobin (Bld) [Mass/Vol] 8.1 g/dL Low 12.0-15.0 [facility] Comment on above: Performed By: #### L [id number] ####[facility] ([facility])[address] [place] [address] MCH (RBC) [Entitic mass] 29.8 pg Normal 27.0-33.0 [facility] Comment on above: Performed By: #### L [id number] ####[facility] ([facility])[address] [place] [address] MCV (RBC) [Entitic vol] 89.0 fL Normal 82.0-98.0 [facility] Comment on above: Performed By: #### L [id number] ####[facility] ([facility])[address] [place] [address] NRBC (PER 100 WBCS) BY AUTOMATED COUNT 0.0 % Normal 0 [facility] Comment on above: Performed By: #### L [id number] ####[facility] ([facility])[address] [place] [address] PLATELETS (10*3/UL) IN BLOOD AUTOMATED COUNT 259 10*3/uL Normal 150-400 [facility] Comment on above: Performed By: #### L [id number] ####[facility] ([facility])[address] [place] [address] RBC (Bld) [#/Vol] 2.72 10*6/uL Low 3.80-5.00 [facility] Comment on above: Performed By: #### L [id number] ####[facility] ([facility])[address] [place], [place] [address] WBC (Bld) [#/Vol] 22.21 10*3/uL High 4.00-10.60 [facility] Comment on above: Performed By: #### L [id number] ####[facility] ([facility])[address] [place] [address] EDNURSon 07-01-2024 EDNURS Normal [facility] EDPROVon 07-01-2024 EDPROV Normal [facility] Eosinophils/100 WBC Manual c nt (Bld)on 07-01-2024 Eosinophils/100 WBC (Bld) Eosinophils/100 leukocytes in Blood by Manual count Low 0.9-7.0 [facility] Estimated glomerular filtrat ion rate (GFR) non- Americanon 07-01-2024 GFR/1.73 sq M.predicted among non-blacks MDRD (S/P/Bld) [Vol rate/Area] Estimated glomerular filtration rate (GFR) non- >=60 mL/min/1.7 3m 2 [facility] Globulin Calc (S) [Mass/Vol] on 07-01-2024 Globulin (S) [Mass/Vol] Serum globulin measurement by calculation (mass/volume) [facility] HEPATIC FUNCTION PANELon Albumin [Mass/Vol] 2.4 g/dL Low 3.5-5.7 [facility] Comment on above: Performed By: #### L [id number] ####[facility] ([facility])[address] [facility] [address] ALP [Catalytic activity/Vol] 682 U/L High 34-104 [facility] Comment on above: Performed By: #### L [id number] ####[facility] ([facility])[address] [place] [address] ALT [Catalytic activity/Vol] 202 U/L High 7-52 [facility] Comment on above: Performed By: #### L [id number] ####[facility] ([facility])[address] [place] [address] AST [Catalytic activity/Vol] 192 U/L High 13-39 [facility] Comment on above: Performed By: #### L [id number] ####[facility] ([facility])[address] [place] [address] Bilirubin [Mass/Vol] 10.7 mg/dL High 0.3-1.0 [facility] Comment on above: Performed By: #### L [id number] ####[facility] ([facility])[address] [place] [address] Magnesium [Mass/Vol] 6.1 mg/dL High 0-0.2 [facility] Comment on above: Performed By: #### L [id number] ####[facility] ([facility])[address] [place] [address] Protein [Mass/Vol] 4.2 g/dL Low 6.0-8.[address] [facility] Comment on above: Performed By: #### L [id number] ####[facility] ([facility])[address] [place] [address] Hemoglobin.gastrointestinal [Presence] in Stoolon 07-01-2024 Hemoglobin.gastroi ntestinal Ql (Stl) Hemoglobin.gastrointestinal [Presence] in Stool Abnormal [facility] LACTIC ACID WITH 4 HOUR REFL EXon 07-01-2024 LACTATE (MMOL/L) IN SER/PLAS 0.8 mmol/L Normal 0.5-2.2 [facility] Comment on above: Performed By: #### L [id number] ####[facility] ([facility])[address] [place] [address] LIPASEon 07-01-2024 LIPASE (U/L) IN SER/PLAS 95 U/L High 11-82 [facility] Comment on above: Performed By: #### L [id number] ####[facility] ([facility])[address] [place] [address] Laboratory - Chemistry and C hemistry - challengeon 07-01-2024 Albumin [Mass/Vol] 1.7 g/dL Low 3.4-5.0 [facility] ALP [Catalytic activity/Vol] 821 U/L High 46-116 [facility] ALT [Catalytic activity/Vol] 269 U/L High 14-59 [facility] AST [Catalytic activity/Vol] 204 U/L High 15-37 [facility] Bilirubin [Mass/Vol] 10.9 mg/dL High 0.2-1.0 [facility] Bilirubin.direct [Mass/Vol] 9.2 mg/dL Critically high 0.0-0.2 [facility] Comment on above: RESULTS CALLED TO SHARI SERRANO RN Calcium [Mass/Vol] 8.1 mg/dL Low 8.5-10.1 [facility] Chloride [Moles/Vol] 102 mmol/L 98-107 [facility] CO2 [Moles/Vol] 26.8 mmol/L 21.0-32.0 [facility] Creatinine [Mass/Vol] 0.90 mg/dL 0.55-1.02 [facility] GFR/1.73 sq M.predicted MDRD (S/P/Bld) [Vol rate/Area] mL/min/{1.73_m2} >=60 mL/min/1.7 3m 2 [facility] Glucose [Mass/Vol] 111 mg/dL High 74-106 [facility] Lipase [Catalytic activity/Vol] 1459.0 U/L Critically high 16.0-77.0 [facility] Comment on above: RESULTS CALLED TO SHARI SERRANO RN Magnesium [Mass/Vol] 1.6 mg/dL Low 1.8-2.4 [facility] Potassium [Moles/Vol] 3.2 mmol/L Low 3.5-5.1 [facility] Protein [Mass/Vol] 4.6 g/dL Low 6.4-8.2 [facility] Sodium [Moles/Vol] 133 mmol/L Low 136-145 [facility] Urea nitrogen [Mass/Vol] 43.0 mg/dL High 7.0-18.0 [facility] Urea nitrogen/Creatinin e [Mass ratio] 47.8 mg/mg [facility] Laboratory - Hematology and Cell countson 07-01-2024 Band form neutrophils/100 WBC (Bld) 0.0 % 0-5 [facility] Lymphocytes/100 WBC (Bld) 13.0 % Low 20.5-60.0 [facility] Monocytes/100 WBC (Bld) 7.0 % 1.7-12.0 [facility] MANUAL DIFFERENTIALon 2024 BASOPHILS (10*3/UL) IN BLOOD BY CALCULATION 0.16 10*3/uL Normal 0.00-0.20 [facility] Comment on above: Performed By: #### L [id number] ####[facility] ([facility])[address] [place] [address] BASOPHILS/100 LEUKOCYTES IN BLOOD BY AUTOMATED COUNT 0.7 % Normal 0.0-1.0 [facility] Comment on above: Performed By: #### L [id number] ####[facility] ([facility])[address] [place] [address] EOSINOPHILS (10*3/UL) IN BLOOD BY CALCULATION 0.00 10*3/uL Normal 0.00-0.50 [facility] Comment on above: Performed By: #### L [id number] ####[facility] ([facility])[address] [place] [address] EOSINOPHILS/100 LEUKOCYTES IN BLOOD BY AUTOMATED COUNT 0.0 % Normal 0.0-6.0 [facility] Comment on above: Performed By: #### L [id number] ####[facility] ([facility])[address] [place] [address] LYMPHOCYTES (10*3/UL) IN BLOOD BY CALCULATION 4.26 10*3/uL High 1.20-4.00 [facility] Comment on above: Performed By: #### L [id number] ####[facility] ([facility])[address] [place] [address] LYMPHOCYTES/100 LEUKOCYTES IN BLOOD BY AUTOMATED COUNT 19.2 % Low 20.0-45.0 [facility] Comment on above: Performed By: #### L [id number] ####[facility] ([facility])[address] [place] [address] MONOCYTES (10*3/UL) IN BLOOD BY CALCUATION 0.58 10*3/uL Normal 0.10-1.00 [facility] Comment on above: Performed By: #### L [id number] ####[facility] ([facility])[address] [place] [address] MONOCYTES/100 LEUKOCYTES IN BLOOD BY AUTOMATED COUNT 2.6 % Low 5.0-12.0 [facility] Comment on above: Performed By: #### L [id number] ####[facility] ([facility])[address] [place] [address] NEUTROPHILS (10*3/UL) IN BLOOD BY CALCULATION 17.2 10*3/uL High 1.6-7.6 [facility] Comment on above: Performed By: #### L [id number] ####[facility] ([facility])[address] [place] [address] NEUTROPHILS/100 LEUKOCYTES IN BLOOD BY AUTOMATED COUNT 77.5 % High 40.0-72.0 [facility] Comment on above: Performed By: #### L [id number] ####[facility] ([facility])[address] [place] [address] PLASMA CELLS/100 LEUKOCYTES IN BLOOD 0 % Normal 0 [facility] Comment on above: Performed By: #### L [id number] ####[facility] ([facility])[address] [place] [address] PLATELETS GIANT PRESENCE IN BLOOD BY LIGHT MICROSCOPY Present Normal [facility] Comment on above: Performed By: #### L [id number] ####[facility] ([facility])[address] [place] [address] VARIANT LYMPHOCYTES (10*3/UL) IN BLOOD BY CALCULATION 0.00 10*3/uL Normal 0.00 [facility] Comment on above: Performed By: #### L [id number] ####[facility] ([facility])[address] [place] [address] VARIANT LYMPHOCYTES/100 LEUKOCYTES IN BLOOD CELLAVISION 0.0 % Normal 0.0-0.0 [facility] Comment on above: Performed By: #### L [id number] ####[facility] ([facility])[address] [place] [address] Metamyelocytes/100 WBC Kristiana l cnt (Bld)on 07-01-2024 Metamyelocytes/100 WBC (Bld) Metamyelocytes/100 leukocytes in Blood by Manual count [facility] No Panel Informationon 07-01 Absolute Basophils (Manual) 0.00 10 3/uL 0.00-0.10 [facility] Band Neutrophils # (Manual) 0.0 10 3/uL 0.0-0.3 [facility] Eosinophils # (Manual) 0.00 10 3/uL 0.00-0.70 [facility] Lymphocytes # (Manual) 3.32 10 3/uL 1.20-3.80 [facility] Metamyelocytes # (Manual) 0.51 [facility] Monocytes # (Manual) 1.79 10 3/uL High 0.30-0.80 [facility] Segmented Neutrophils # (Manual) 19.96 10 3/uL High 1.4-6.5 [facility] Troponin I High Sensitivity 26.3 pg/mL 4.0-51.3 [facility] Comment on above: CUT-OFF POINTS HAVE BEEN [...] PPP BY COAGULATION ASSAY 1.29 High 0.90-1.10 [facility] Comment on above: Result Comment: ACCC P [...] CHEST 1995;[id number]. Performed By: #### L [id number] ####[facility] ([facility])[address] [place] [address] PROTHROMBIN TIME (PT) IN PPP BY COAGULATION ASSAY 16.0 Seconds High 12.3-14.8 [facility] Comment on above: Performed By: #### L [id number] ####[facility] ([facility])[address] [place] [address] Segmented neutrophils/100 WB C Manual cnt (Bld)on 07-01-2024 Segmented neutrophils/100 WBC (Bld) Manual blood segmented neutrophils/100 leukocytes High 43.0-75.0 [facility] Serum or plasma albumin/glob ulin mass ratioon 07-01-2024 Albumin/Globulin [Mass ratio] Serum or plasma albumin/globulin mass ratio [facility] Serum or plasma anion gap de terminationon 07-01-2024 Anion gap [Moles/Vol] Serum or plasma anion gap determination [facility] TROPONIN Ion 07-01-2024 Troponin I.cardiac [Mass/Vol] 0.04 ng/mL Normal 0.00-0.04 [facility] Comment on above: Performed By: #### L [id number] ####[facility] ([facility])[address] [place] [address] TYPE AND SCREENon 07-01-2024 AB SCREEN Negative Normal [facility] Comment on above: Performed By: #### L [id number] ####[facility] ABO group Nom (Bld) O Normal [facility] Comment on above: Performed By: #### L [id number] ####[facility], RH TYPE IN BLOOD Positive Normal [facility] Comment on above: Performed By: #### L [id number] ####[facility], Urine Cultureon 07-01-2024 Bacteria identified Cx Nom (U) <9,000 colonies/ml mixed bacterial skin contaminants 2 Days PERFORMED BY: [facility] [address] [place] [address] PATHOLOGIST [employer] FRANSICO JACKSON M.D. Normal [facility] Comment on above: Performed By: #### C UU #### [facility] [address] [id number] [facility] Urine cultureOrdered By: Tiago Devi on 07-01-2024 Bacteria identified Cx Nom (U) Urine culture [facility] Whole blood hypersegmented n eutrophils detection by light microscopyon 07-01-2024 Neutrophils.hypers egmented LM Ql (Bld) Whole blood hypersegmented neutrophils detection by light microscopy [facility] [id number] 06-28-2024 [id number] Normal [facility] ANESon 06-28-2024 ANES Normal [facility] ANES [facility] HISTOLOGY - TISSUE EXAMon LAB AP CASE REPORT Normal [facility] Comment on above: Result Comment: Surg ical Pathology Case: [id number] Provider: Bradley Pope MD Collected: 06/28/2024 1558Ordering Location: [facility] Received: 07/01/2024 0813 [facility] EndoscopyPathologist: DALY Lujanpecimens: A) - Common Bile Duct, COMMON HEPATIC DUCT BIOPSY RULE OUT MALIGNANCY, DYSPLASIA B) - Rectum, RECTAL MASS RULE OUT MALIGNANCY Performed By: #### L [id number] ####[facility] ([facility])[address] [place] [address] LAB AP CLINICAL INFORMATION Order Diagnoses Normal [facility] Comment on above: Result Comment: K83. 1 - Obstructive jaundice [ICD-10-CM]K76.9 - Liver lesion [ICD-10-CM]K62.9 - Rectal lesion [ICD-10-CM] Performed By: #### L [id number] ####[facility] ([facility])[address] [place] [address] LAB AP DIAGNOSIS COMMENT The specimen in part B may not be entirely pharmacy services representative of a larger mass. Parts A and B were reviewed in intradepartmental consensus with agreement of the diagnosis. Also see concurrent concurrent cytopathology case [id number]. [facility] Comment on above: Performed By: #### L [id number] ####[facility] ([facility])[address] [place] [address] LAB AP GROSS DESCRIPTION [facility] Comment on above: Result Comment: A. C [...] in toto in 1 cassette.Usha Mccoy, Pathologists' Audience Coordinator studentNaomi Sands Pathologists' Audience Coordinator studentB. Rectum.Part B is received in formalin labeled Ellinor Covella and rectal mass rule out malignancy. It consists of a 0.7 x 0.5 x 0.2 cm aggregate of multiple castillo-lovelace, delicate pieces of mucosal soft tissue. The specimen is submitted in toto in 1 cassette.Usha Mccoy, Pathologists' Audience Coordinator studentNaomi Sands, Pathologists' Audience Coordinator student Performed By: #### L [id number] ####[facility] ([facility])[address] [place] [address] LAB AP MICROSCOPIC DESCRIPTION Microscopic examination performed. [facility] Comment on above: Performed By: #### L [id number] ####[facility] ([facility])[address] [place] [address] LAB AP REPORT FINAL DIAGNOSIS NARRATIVE [facility] Comment on above: Result Comment: A. C ommon bile duct, biopsy: - Adenocarcinoma.B. Rectal mass, biopsy: -Superficial fragments of tubulovillous adenoma. -No invasive neoplasm or high-grade dysplasia identified. -See comment. Performed By: #### L [id number] ####[facility] ([facility])[address] [place] [address] HPon 06-28-2024 [facility] NON-ADMINISTRATION SPECIALIST CYTOLOGY - CELLULAR EXAMon 06-28-2024 LAB AP ADDENDUM 1 Normal [facility] Comment on above: Result Comment: Immu nohistochemical [...] 11:40 AM Performed By: #### L [id number] ####[facility] ([facility])[address] [place] [address] LAB AP CASE REPORT Normal [facility] Comment on above: Result Comment: Non- gynecologic Cytology Case: [id number] Provider: Bradley Pope MD Collected: 06/28/2024 1551Ordering Location: [facility] Received: 07/01/2024 07 [facility] EndoscopyPathologist: DLAY Travispecimens: A) - Hepatic Duct brushing, COMMON HEPATIC DUCT BRUSHING B) - Lymph Node, FNA PARADUODENAL LYMPH NODE C) - Liver, LEFT HEPATIC LOBE LESION Performed By: #### L [id number] ####[facility] ([facility])[address] [facility] [address] LAB AP CLINICAL INFORMATION Order Diagnoses Normal [facility] Comment on above: Result Comment: K83. 1 - Obstructive jaundice [ICD-10-CM]K76.9 - Liver lesion [ICD-10-CM]K62.9 - Rectal lesion [ICD-10-CM] Performed By: #### L [id number] ####[facility] ([facility])[address] [place] [address] LAB AP DIAGNOSIS COMMENT Normal [facility] Comment on above: Result Comment: The cell block from part C contains moderate tumor cells for ancillary studies, if clinically indicated.See also concurrent surgical case, [id number]. Performed By: #### L [id number] ####[facility] ([facility])[address] [place] [address] LAB AP GROSS DESCRIPTION [facility] Comment on above: Result Comment: A. O ne brush received in 30 mL CytoLyt with hazy, yellow fluidB. 3 air-dried slides, 1 alcohol-fixed slide, 30 mL CytoLyt with clear, colorless fluid.C. 3 air-dried slides, 2 alcohol-fixed slides, 30 mL CytoLyt with cloudy, red fluid with white flecks. Performed By: #### L [id number] ####[facility] ([facility])[address] [place] [address] LAB AP INTRAOPERATIVE CONSULTATION B. Lymph Node. [facility] Comment on above: Result Comment: Rapi d [...] material submitted.* Performed By: #### L [id number] ####[facility] ([facility])[address] [place] [address] LAB AP MICROSCOPIC DESCRIPTION [facility] Comment on above: Result Comment: A. S [...] and debris. Performed By: #### L [id number] ####[facility] ([facility])[address] [place] [address] LAB AP REPORT FINAL DIAGNOSIS NARRATIVE [facility] Comment on above: Result Comment: A. H epatic duct, brushing: - Suspicious for malignancyB. Lymph node, paraduodenal, EUS-guided fine needle aspiration: - Atypical cells presentC. Liver, EUS-guided fine needle aspiration: - Adenocarcinoma Performed By: #### L [id number] ####[facility] ([facility])[address] [place] [address] NURSNOTEon 06-28-2024 NURSNOTE RN reviewed discharg e instructions with patient and son. No questions or concerns expressed at this time. Normal [facility] NURSNOTE All positioning santo fernie removed grounding patch site clean dry intact, pt returned to stretcher per 4 assists. pt remains supine. Normal [facility] NURSNOTE Rectal mass biopsy s ent with cytology. Normal [facility] NURSNOTE Hepatic duct brushin g and hepatic duct biopsy sent with cytology at bedside. Normal [facility] POCT GLUCOSE METER UNSOLICIT ED RESULTSon 06-28-2024 Glucose [Mass/Vol] 96 mg/dL Normal 70-105 [facility] Comment on above: Order Comment: Waive d Testing in the ED is performed under the ED CLIA certificate #[id number]. Result Comment: epaw low Performed By: #### L [id number] ####[facility] ([facility])[address] [place] [address] Orders Onlyon 06-27-2024 Orders Only [id number] Radha Kumar 1945 F Date Provider Department [facility]20[facility] No family history on file Normal [facility] Basophils Auto (Bld) [#/Vol] on 06-18-2024 Basophils (Bld) [#/Vol] Automated basophil count 0.0-0.1 [facility] Basophils/100 WBC Auto (Bld) on 06-18-2024 Basophils/100 WBC (Bld) Automated basophil % 0.2-2.0 [facility] Eosinophils/100 WBC Auto (Bl d)on 06-18-2024 Eosinophils/100 WBC (Bld) Automated eosinophil % 0.9-7.0 [facility] Erythrocyte distribution wid th Auto (RBC) [Ratio]on 06-18-2024 Erythrocyte distribution width (RBC) [Ratio] Erythrocyte distribution width [Ratio] by Automated count High 11.0-15.0 [facility] Estimated glomerular filtrat ion rate (GFR) non- Americanon 06-18-2024 GFR/1.73 sq M.predicted among non-blacks MDRD (S/P/Bld) [Vol rate/Area] Estimated glomerular filtration rate (GFR) non- >=60 mL/min/1.7 3m 2 [facility] Globulin Calc (S) [Mass/Vol] on 06-18-2024 Globulin (S) [Mass/Vol] Serum globulin measurement by calculation (mass/volume) [facility] Hematocrit Auto (Bld) [Volum e fraction]on 06-18-2024 Hematocrit (Bld) [Volume fraction] Hematocrit [Volume Fraction] of Blood by Automated count 36.0-48.0 [facility] Hemoglobin [Mass/volume] in Bloodon 06-18-2024 Hemoglobin (Bld) [Mass/Vol] Hemoglobin [Mass/volume] in Blood 12.0-16.0 [facility] Laboratory - Chemistry and C hemistry - challengeon 06-18-2024 Albumin [Mass/Vol] 2.8 g/dL Low 3.4-5.0 [facility] ALP [Catalytic activity/Vol] 1074 U/L High 46-116 [facility] ALT [Catalytic activity/Vol] 499 U/L High 14-59 [facility] AST [Catalytic activity/Vol] 273 U/L High 15-37 [facility] Bilirubin [Mass/Vol] 12.9 mg/dL High 0.2-1.0 [facility] Calcium [Mass/Vol] 9.3 mg/dL 8.5-10.1 [facility] Chloride [Moles/Vol] 101 mmol/L 98-107 [facility] CO2 [Moles/Vol] 23.4 mmol/L 21.0-32.0 [facility] Creatinine [Mass/Vol] 0.83 mg/dL 0.55-1.02 [facility] GFR/1.73 sq M.predicted MDRD (S/P/Bld) [Vol rate/Area] mL/min/{1.73_m2} >=60 mL/min/1.7 3m 2 [facility] Glucose [Mass/Vol] 101 mg/dL 74-106 [facility] Potassium [Moles/Vol] 3.7 mmol/L 3.5-5.1 [facility] Protein [Mass/Vol] 6.5 g/dL 6.4-8.2 [facility] Sodium [Moles/Vol] 138 mmol/L 136-145 [facility] Urea nitrogen [Mass/Vol] 13.0 mg/dL 7.0-18.0 [facility] Urea nitrogen/Creatinin e [Mass ratio] 15.7 mg/mg [facility] Laboratory - Hematology and Cell countson 06-18-2024 Immature granulocytes/100 WBC (Bld) 1.0 % High 0.0-0.5 [facility] Leukocytes [#/volume] correc saleem for nucleated erythrocytes in Blood by Automated counon 06-18-2024 WBC corrected for nucl RBC Auto (Bld) [#/Vol] Leukocytes [#/volume] corrected for nucleated erythrocytes in Blood by Automated coun High 4.0-11.0 [facility] Lymphocytes Auto (Bld) [#/Vo l]on 06-18-2024 Lymphocytes (Bld) [#/Vol] Lymphocytes [#/volume] in Blood by Automated count 1.2-3.8 [facility] Lymphocytes/100 WBC Auto (Bl d)on 06-18-2024 Lymphocytes/100 WBC (Bld) Lymphocytes/100 leukocytes in Blood by Automated count Low 20.5-60.0 [facility] MCH Auto (RBC) [Entitic mass ]on 06-18-2024 MCH (RBC) [Entitic mass] MCH [Entitic mass] by Automated count 26.7-34.0 [facility] MCHC Auto (RBC) [Mass/Vol]on 06-18-2024 MCHC (RBC) [Mass/Vol] MCHC [Mass/volume] by Automated count 29.9-35.2 [facility] MCV Auto (RBC) [Entitic vol] on 06-18-2024 MCV (RBC) [Entitic vol] MCV [Entitic volume] by Automated count 81.0-99.0 [facility] Monocytes Auto (Bld) [#/Vol] on 06-18-2024 Monocytes (Bld) [#/Vol] Automated blood monocyte count High 0.3-0.8 [facility] Monocytes/100 WBC Auto (Bld) on 06-18-2024 Monocytes/100 WBC (Bld) Automated monocyte % 1.7-12.0 [facility] Neutrophils Auto (Bld) [#/Vo l]on 06-18-2024 Neutrophils (Bld) [#/Vol] Neutrophils [#/volume] in Blood by Automated count High 1.4-6.5 [facility] Neutrophils/100 WBC Auto (Bl d)on 06-18-2024 Neutrophils/100 WBC (Bld) Automated neutrophil % 43.0-75.0 [facility] No Panel Informationon 06-18 Eosinophils # (Auto) 0.5 10 3/uL 0.0-0.7 [facility] Immature Granulocyte # (Auto) 0.15 10 3/uL High 0.00-0.03 [facility] Platelet mean volume Auto (B ld) [Entitic vol]on 06-18-2024 Platelet mean volume (Bld) [Entitic vol] Platelet mean volume [Entitic volume] in Blood by Automated count 9.5-13.5 [facility] Platelets Auto (Bld) [#/Vol] on 06-18-2024 Platelets (Bld) [#/Vol] Platelets [#/volume] in Blood by Automated count 150-450 [facility] RBC Auto (Bld) [#/Vol]on RBC (Bld) [#/Vol] Erythrocytes [#/volu me] in Blood by Automated count 4.20-5.40 [facility] Serum or plasma albumin/glob ulin mass ratioon 06-18-2024 Albumin/Globulin [Mass ratio] Serum or plasma albumin/globulin mass ratio [facility] Serum or plasma anion gap de terminationon 06-18-2024 Anion gap [Moles/Vol] Serum or plasma anion gap determination [facility] CBC AUTO DIFFon 11-10-2020 BASO # 0.1 103/ul Normal 0.0-0.1 [facility] Comment on above: Performed By: #### C BC #### [facility] [address] [id number] Loly Naz Basophils/100 WBC (Bld) 0.6 % Normal 0.2-2.0 [facility] Comment on above: Performed By: #### C BC #### [facility] [address] [address] Loly Naz EO # 0.4 103/ul Normal 0.0-0.7 [facility] Comment on above: Performed By: #### C BC #### [facility] [address] [address] Loly Naz Eosinophils/100 WBC (Bld) 3.4 % Normal 0.9-7.0 [facility] Comment on above: Performed By: #### C BC #### [facility] [address] [address] Loly Naz Erythrocyte distribution width (RBC) [Ratio] 13.1 % Normal 11.0-15.0 [facility] Comment on above: Performed By: #### C BC #### [facility] [address] [place], [place] [id number] Loly Naz Hematocrit (Bld) [Volume fraction] 41.5 % Normal 36.0-48.0 [facility] Comment on above: Performed By: #### C BC #### [facility] [address] [id number] Loly Naz Hemoglobin (Bld) [Mass/Vol] 13.5 g/dL Normal 12.0-16.0 [facility] Comment on above: Performed By: #### C BC #### [facility] [address] [id number] Loly Naz IG # 0.03 10e3/ul Normal 0.00-0.03 [facility] Comment on above: Performed By: #### C BC #### [facility] [address] [place], [place] [id number] Loly Naz IG % 0.3 % Normal 0.0-0.5 [facility] Comment on above: Performed By: #### C BC #### [facility] [address] [place] [address] Loly Naz LYMPH # 3.6 103/ul Normal 1.2-3.8 [facility] Comment on above: Performed By: #### C BC #### [facility] [address] [place], [place] [id number] Loly Naz Lymphocytes/100 WBC (Bld) 34.9 % Normal 20.5-60.0 [facility] Comment on above: Performed By: #### C BC #### [facility] [address] [place] [address] Loly Naz MANUAL DIFF REQ NO Normal [facility] Comment on above: Performed By: #### C BC #### [facility] [address] [place] [address] Loly Naz MCH (RBC) [Entitic mass] 28.4 pg Normal 26.7-34.0 [facility] Comment on above: Performed By: #### C BC #### [facility] [address] [place], [place] [id number] Loly Naz MCHC (RBC) [Mass/Vol] 32.5 g/dL Normal 29.9-35.2 [facility] Comment on above: Performed By: #### C BC #### [facility] [address] [place] [address] Loly Naz MCV (RBC) [Entitic vol] 87.2 fL Normal 81.0-99.0 [facility] Comment on above: Performed By: #### C BC #### [facility] [address] [place], [place] [id number] Loly Naz MONO # 0.8 103/ul Normal 0.3-0.8 [facility] Comment on above: Performed By: #### C BC #### [facility] [address] [place], [place] [phone] Loly Naz Monocytes/100 WBC (Bld) 7.6 % Normal 1.7-12.0 [facility] Comment on above: Performed By: #### C BC #### [facility] [address] [place] [address] Loly Childs NEUT # 5.5 103/ul Normal 1.4-6.5 [facility] Comment on above: Performed By: #### C BC #### [facility] [address] [place] [address] Loly Childs Neutrophils/100 WBC (Bld) 53.2 % Normal 43.0-75.0 [facility] Comment on above: Performed By: #### C BC #### [facility] [address] [place] [address] Loly Childs Platelet mean volume (Bld) [Entitic vol] 12.6 fL Normal 9.5-13.5 [facility] Comment on above: Performed By: #### C BC #### [facility] [address] [place] [address] Lolysarah Childs PLT 229 103/ul Normal 150-450 [facility] Comment on above: Performed By: #### C BC #### [facility] [address] [place] [address] Loly Childs RBC 4.76 106/ul Normal 4.20-5.40 [facility] Comment on above: Performed By: #### C BC #### [facility] [address] [place] [address] Loly Childs WBC 10.3 103/ul Normal 4.0-11.0 [facility] Comment on above: Performed By: #### C BC #### [facility] [address] [place] [address] Loly Childs LIPID PROFILEon 11-10-2020 CHOL-HDL RATIO NORM SEE BELOW Normal [facility] Comment on above: Result Comment: 3.3 - 4.4 LOW RISK 4.4 - 7.1 AVERAGE RISK 7.1 - 11.0 MODERATE RISK >11.0 HIGH RISK Performed By: #### L IPID, BMP #### [facility] [address] [place], [place] [address] Loly Naz Cholesterol [Mass/Vol] 173 mg/dL Normal <=200 [facility] Comment on above: Performed By: #### L IPID, BMP #### [facility] [address] [address] Loly Naz Cholesterol in HDL [Mass/Vol] 48 mg/dL Normal [facility] Comment on above: Performed By: #### L IPID, BMP #### [facility] [address] [address] Loly Naz Cholesterol in LDL [Mass/Vol] 113.8 mg/dL Normal [facility] Comment on above: Performed By: #### L IPID, BMP #### [facility] [address] [place] [address] Loly Naz Cholesterol.total/ Cholesterol in HDL [Mass ratio] 3.6 {ratio} Normal [facility] Comment on above: Performed By: #### L IPID, BMP #### [facility] [address] [place] [address] Loly Naz HDL NORMAL > or = 60 mg/dl - LO W CARDIOVASCULAR RISK <40 mg/dl - HIGH CARDIOVASCULAR RISK Normal [facility] Comment on above: Performed By: #### L IPID, BMP #### [facility] [address] [place] [address] Loly Anz LDL CALC NORMAL SEE BELOW Normal [facility] Comment on above: Result Comment: <100 mg/dl OPTIMAL 100 - 129 mg/dl NEAR OR ABOVE OPTIMAL 130 - 159 mg/dl BORDERLINE HIGH 160 - 189 mg/dl HIGH >190 mg/dl VERY HIGH Performed By: #### L IPID, BMP #### [facility] [address] [place] [address] Loly Naz Triglyceride [Mass/Vol] 56 mg/dL Normal <=150 [facility] Comment on above: Performed By: #### L IPID, BMP #### [facility] [address] [address] Loly Naz VLDL CALC 11.2 mg/dL Normal [facility] Comment on above: Performed By: #### L IPID, BMP #### [facility] [address] [id number] Loly Naz PROF CHEM 8 (BAS METB)on Anion gap [Moles/Vol] 11.6 mmol/L Normal [facility] Comment on above: Performed By: #### L IPID, BMP #### [facility] [address] [place] [address] Loly Naz Calcium [Mass/Vol] 9.1 mg/dL Normal 8.4-10.2 [facility] Comment on above: Performed By: #### L IPID, BMP #### [facility] [address] [place] [address] Olly Naz Chloride [Moles/Vol] 101 mmol/L Normal 98-107 [facility] Comment on above: Performed By: #### L IPID, BMP #### [facility] [address] [place] [address] Loly Naz CO2 [Moles/Vol] 29.6 mmol/L Normal 22.0-30.0 [facility] Comment on above: Performed By: #### L IPID, BMP #### [facility] [address] [place] [address] Loly Naz Creatinine [Mass/Vol] 0.80 mg/dL Normal 0.52-1.04 [facility] Comment on above: Performed By: #### L IPID, BMP #### [facility] [address] [place] [address] Loly Naz EGFR-AF HONDURAN >60 Normal >=60 [facility] Comment on above: Performed By: #### L IPID, BMP #### [facility] [address] [place] [address] Loly Naz EGFR-NON AF HONDURAN >60 Normal >=60 [facility] Comment on above: Performed By: #### L IPID, BMP #### [facility] [address] [place] [address] Loly Naz Glucose [Mass/Vol] 95 mg/dL Normal 74-106 [facility] Comment on above: Performed By: #### L IPID, BMP #### [facility] [address] [place], [place] [address] Loly Naz Potassium [Moles/Vol] 4.2 mmol/L Normal 3.4-5.0 [facility] Comment on above: Performed By: #### L IPID, BMP #### [facility] [address] [place], [place] [address] Loly Naz Sodium [Moles/Vol] 138 mmol/L Normal 137-145 [facility] Comment on above: Performed By: #### L IPID, BMP #### [facility] [address] [place], [place] [address] Loly Naz Urea nitrogen [Mass/Vol] 19.0 mg/dL Critically high 7.0-17.0 [facility] Comment on above: Performed By: #### L IPID, BMP #### [facility] [address] [place], [place] [address] Loly Naz Urea nitrogen/Creatinin e [Mass ratio] 23.8 mg/mg Normal [facility] Comment on above: Performed By: #### L IPID, BMP #### [facility] [address] [place], [place] [address] Loly Naz Vital Signs Date Time Vital Sign Value Performing Clinician Facility 10-29-2024 14:15-0400 Body height 162.6 cm Kristin Witt MD Work Phone: [facility] 10-29-2024 14:15-0400 Body mass index (BMI) [Ratio] 22.49 kg/m2 Kristin Witt MD Work Phone: [facility] 10-29-2024 14:15-0400 Body weight 59.42 kg Kristin Witt MD Work Phone: [facility] 10-29-2024 14:15-0400 Diastolic blood pressure 74 mm[Hg] Kristin Witt MD Work Phone: [facility] 10-29-2024 14:15-0400 Heart rate 87 /min Kristin Witt MD Work Phone: [facility] 10-29-2024 14:15-0400 SaO2% (BldA) [Mass fraction] 100 % Kristin Witt MD Work Phone: [facility] 10-29-2024 14:15-0400 Systolic blood pressure 146 mm[Hg] Kristin Witt MD Work Phone: [facility] 09-12-2024 15:28-0400 Body height 162.6 cm Pacc 2 Work Phone: [facility] 09-12-2024 15:28-0400 Body mass index (BMI) [Ratio] 22.74 kg/m2 Pacc 2 Work Phone: [facility] 09-12-2024 15:28-0400 Body temperature 97.81 [degF] Pacc 2 Work Phone: [facility] 09-12-2024 15:28-0400 Body weight 60.1 kg Pacc 2 Work Phone: [facility] 09-12-2024 15:28-0400 Diastolic blood pressure 72 mm[Hg] Pacc 2 Work Phone: [facility] 09-12-2024 15:28-0400 Heart rate 69 /min Pacc 2 Work Phone: [facility] 09-12-2024 15:28-0400 Respiratory rate 16 /min Pacc 2 Work Phone: [facility] 09-12-2024 15:28-0400 SaO2% (BldA) [Mass fraction] 98 % Pacc 2 Work Phone: [facility] 09-12-2024 15:28-0400 Systolic blood pressure 133 mm[Hg] Pacc 2 Work Phone: [facility] 09-09-2024 13:49-0400 Body height 162.6 cm Hugo Taylor MD Work Phone: [facility] 09-09-2024 13:49-0400 Body mass index (BMI) [Ratio] 22.71 kg/m2 Hugo Taylor MD Work Phone: [facility] 09-09-2024 13:49-0400 Body temperature 97 [degF] Hugo Taylor MD Work Phone: [facility] 09-09-2024 13:49-0400 Body weight 60 kg Hugo Taylor MD Work Phone: [facility] 09-09-2024 13:49-0400 Diastolic blood pressure 78 mm[Hg] Hugo Taylor MD Work Phone: [facility] Comment on above: did not take medicaiton today 09-09-2024 13:49-0400 Heart rate 49 /min Hugo Taylor MD Work Phone: [facility] 09-09-2024 13:49-0400 SaO2% (BldA) [Mass fraction] 97 % Hugo Taylor MD Work Phone: [facility] 09-09-2024 13:49-0400 Systolic blood pressure 166 mm[Hg] Hugo Taylor MD Work Phone: [facility] Comment on above: did not take medicaiton today 07-19-2024 15:41-0500 Body temperature 97.7 [degF] Reuben Angela MD Work Phone: [facility] 07-19-2024 15:41-0500 Body weight 67.3 kg Reuben Angela MD Work Phone: [facility] 07-19-2024 15:41-0500 Diastolic blood pressure 81 mm[Hg] Reuben Angela MD Work Phone: [facility] 07-19-2024 15:41-0500 Heart rate 84 /min Reuben Angela MD Work Phone: [facility] 07-19-2024 15:41-0500 Respiratory rate 18 /min Reuben Angela MD Work Phone: [facility] 07-19-2024 15:41-0500 SaO2% (BldA) [Mass fraction] 98 % Reuben Angela MD Work Phone: [facility] 07-19-2024 15:41-0500 Systolic blood pressure 146 mm[Hg] Reuben Angela MD Work Phone: [facility] 07-16-2024 13:55-0500 Body height 162.56 cm Saad Pay DO Work Phone: [facility] 07-16-2024 13:55-0500 Body mass index (BMI) [Ratio] 25.9 kg/m2 Saad Pay DO Work Phone: [facility] 07-16-2024 13:55-0500 Body temperature 97 [degF] Saad Pay DO Work Phone: [facility] 07-16-2024 13:55-0500 Body weight 68.49 kg Saad Pay DO Work Phone: [facility] 07-16-2024 13:55-0500 Diastolic blood pressure 78 mm[Hg] Saad Pay DO Work Phone: [facility] 07-16-2024 13:55-0500 Systolic blood pressure 150 mm[Hg] Saad Pay DO Work Phone: [facility] 06-20-2024 11:00-0500 Body height 162.56 cm [facility] 06-20-2024 11:00-0500 Body mass index (BMI) [Ratio] 25.1 kg/m2 [facility] 06-20-2024 11:00-0500 Body weight 66.39 kg [facility] 06-20-2024 11:00-0500 Diastolic blood pressure 73 mm[Hg] [facility] 06-20-2024 11:00-0500 Heart rate 71 /min [facility] 06-20-2024 11:00-0500 SaO2% (BldA) [Mass fraction] 98 % [facility] 06-20-2024 11:00-0500 Systolic blood pressure 154 mm[Hg] [facility] 04-03-2024 15:58-0500 Body height 162.56 cm [facility] 04-03-2024 15:58-0500 Body mass index (BMI) [Ratio] 24.9 kg/m2 [facility] 04-03-2024 15:58-0500 Body weight 65.77 kg [facility] 04-03-2024 15:58-0500 Diastolic blood pressure 89 mm[Hg] [facility] 04-03-2024 15:58-0500 Heart rate 63 /min [facility] 04-03-2024 15:58-0500 Respiratory rate 12 /min [facility] 04-03-2024 15:58-0500 Systolic blood pressure 151 mm[Hg] [facility] Encounters Encounter Date Encounter Type Care Provider Facility Start: 10-29-2024 End: 10-29-2024 Office outpatient visit 15 minutes Kristin Witt MD [facility] Comment on above: Syncope, unspecified syncope type (Primary Dx) Start: 10-28-2024 End: 10-28-2024 Telephone encounter Regine [facility] Start: 10-16-2024 End: 10-16-2024 Admission to [facility] Phone Call Provider 2 Tony Mendez [facility] Start: 10-10-2024 End: 10-10-2024 Chart abstracting Scanning Provider External Tony [facility] Start: 10-09-2024 End: 10-09-2024 Telephone encounter Zoie Ng [facility] Start: 10-06-2024 End: 10-06-2024 ambulatory Omari Goldstein Facility:[facility] Start: 10-06-2024 Non-patient / [facility] Work Phone: Start: 10-05-2024 Non-patient / [facility]visit [facility] Work Phone: Start: 09-30-2024 End: 09-30-2024 Orders Only Hugo Taylor MD Work Phone: Gastroenterology Comment on above: Malignant neoplasm o f liver, unspecified liver malignancy type (HCC) (Primary Dx); Liver mass Start: 09-26-2024 End: 09-26-2024 Telephone encounter Olivia Duarte MD Work Phone: Colorectal Surgery Start: 09-20-2024 End: 09-20-2024 ambulatory OLIVIA DUARTE Facility:[facility] Start: 09-12-2024 Non-patient / Non-visit [facility] Work Phone: Start: 09-12-2024 End: 09-12-2024 Preprocedural examination done [address] [id number] Work Phone: [facility] Work Phone: Start: 09-12-2024 Encounter for other preprocedural examination REUBEN ANGELA [facility] Start: 09-12-2024 End: 09-12-2024 PAT [facility] 2 Work Phone: Pre Anesthesia Comment on above: Preoperative examina tion (Primary Dx); OK (generalized anxiety disorder); Primary hypertension; LBBB (left bundle branch block); Anemia, unspecified type; PVC's (premature ventricular contractions); 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 (HCC) Start: 09-11-2024 End: 09-11-2024 Telephone encounter Olivia Duarte MD Work Phone: [facility] Comment on above: Patient Question Start: 09-09-2024 End: 09-09-2024 Patient encounter procedure Hugo Taylor MD Work Phone: General Surgery Comment on above: Malignant neoplasm o f liver, unspecified liver malignancy type (HCC) Malignant neoplasm o f liver, unspecified liver malignancy type (HCC) (Primary Dx) Start: 09-09-2024 End: 09-09-2024 ambulatory MAYITO COSTELLO Facility:[facility] Start: 09-05-2024 End: 09-05-2024 ambulatory OLIVIA DUARTE Facility:[facility] Start: 09-04-2024 End: 09-04-2024 Orders Only Hugo Taylor MD Work Phone: General Surgery Comment on above: Adenocarcinoma deter mined by biopsy of liver (HCC) (Primary Dx) Start: 08-22-2024 End: 08-23-2024 ambulatory Reuben Angela MD Work Phone: Hematology/Oncology Comment on above: 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); Rectal mass; Malignant obstructive jaundice (HCC); 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 (HCC) Start: 08-22-2024 End: 08-23-2024 Telemedicine consultation with patient Reuben Angela MD Work Phone: Hematology/Oncology Start: 08-20-2024 End: 08-20-2024 Telephone encounter Ashley Adkins RN Work Phone: Hematology/Oncology Comment on above: Patient Update (Naus ea) Start: 08-19-2024 End: 08-19-2024 Telephone encounter Delisa Alcazar RN Hematology/Oncology Comment on above: Nausea/loss of appet ite Orders ([employer]) Start: 08-13-2024 End: 08-13-2024 ambulatory [facility] Start: 08-13-2024 End: 08-13-2024 ambulatory [facility] Start: 08-12-2024 Non-patient / Non-visit [facility] Work Phone: Start: 08-05-2024 End: 08-05-2024 Telephone encounter [facility]uben [facility] MD [facility] Start: 08-01-2024 End: 08-02-2024 ambulatory Reuben Angela MD Work Phone: Hematology/Oncology Comment on above: Adenocarcinoma deter mined by biopsy of liver (HCC) (Primary Dx); Rectal mass; Mass of spine; Malignant obstructive jaundice (HCC) Start: 08-01-2024 End: 08-02-2024 Telemedicine consultation with patient Reuben Angela MD Work Phone: Hematology/Oncology Start: 07-23-2024 End: 07-23-2024 ambulatory MAYITO COSTELLO Facility:[facility] Start: 07-23-2024 End: 07-23-2024 Subsequent hospital visit by physician Arrival Time Radiology Work Phone: Radiology [facility] Comment on above: 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] Start: 07-22-2024 End: 07-29-2024 Telephone encounter Cande Espitia RN Hematology/Oncology Comment on above: Orders Start: 07-19-2024 Non-patient / Non-visit [facility] Work Phone: Start: 07-19-2024 End: 07-22-2024 ambulatory REUBEN ANGELA Facility:[facility] Start: 07-19-2024 End: 07-19-2024 Office outpatient new 60 minutes Reuben Angela MD Work Phone: Hematology/Oncology Comment on above: 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); Other specified abnormal findings of blood chemistry Start: 07-18-2024 End: 07-18-2024 Chart abstracting Reuben Angela MD Work Phone: Hematology/Oncology Start: 07-16-2024 End: 07-16-2024 ambulatory Saad Pay DO Work Phone: [facility] Work Phone: Start: 07-16-2024 End: 07-16-2024 Patient encounter procedure Saad Pay DO Work Phone: [facility] Work Phone: Start: 07-15-2024 Non-patient / Non-visit Jeffre y Pay DO Work Phone: [facility] Work Phone: Start: 07-12-2024 End: 07-12-2024 ambulatory CHRISTOPHER BUCKNER [facility] Start: 07-12-2024 End: 07-12-2024 ambulatory CHRISTOPHER BUCKNER [facility] Start: 07-08-2024 Evaluation and manag ement of inpatient REECE ROLAND [facility] Start: 07-02-2024 Evaluation and manag ement of inpatient BRADLEY [facility] Start: 07-02-2024 Non-patient / Non-visit Jeffre y Pay DO Work Phone: [facility] Work Phone: Start: 07-01-2024 Emergency department patient visit INDIO DUFFY [facility] Start: 07-01-2024 End: 07-11-2024 Evaluation and management of inpatient CHIARA MONTOYA [facility] Start: 07-01-2024 End: 07-01-2024 ambulatory Saad Pay [facility] Work Phone: Start: 07-01-2024 End: 07-01-2024 Departed Referred Saad Pay DO Work Phone: [facility] Start: 07-01-2024 Non-patient / Non-visit Jeffre y Pay DO Work Phone: [facility] Work Phone: Start: 06-28-2024 End: 06-28-2024 ambulatory BRADLEY [facility] Start: 06-28-2024 End: 06-28-2024 ambulatory BRADLEY [facility] Start: 06-24-2024 End: 06-24-2024 ambulatory [facility] Work Phone: Start: 06-24-2024 End: 06-24-2024 Patient encounter procedure [facility] Work Phone: Start: 06-20-2024 End: 06-20-2024 ambulatory [facility] Work Phone: Start: 06-20-2024 End: 06-20-2024 Patient encounter procedure [facility] Work Phone: Start: 06-18-2024 Non-patient / Non-visit [facility] [employer] Work Phone: Start: 04-03-2024 End: 04-03-2024 ambulatory [facility] Work Phone: Start: 04-03-2024 End: 04-03-2024 Patient encounter procedure [facility] Work Phone: Start: 04-01-2024 Patient encounter procedure [facility] Start: 03-20-2024 Non-patient / Non-visit [facility] Work Phone: Start: 03-29-2023 End: 03-29-2023 ambulatory Mayito Costello Other [employer] Other Start: 03-29-2023 Telephone encounter Mayito Costello [facility] Start: 01-04-2022 Adult health examination Chapo joyenr Trang Other [employer] Other Start: 05-18-2021 End: 05-19-[address] MAYITO COSTELLO Facility:[facility] Start: 11-12-2020 Encounter for genera l adult medical examination without abnormal findings DR MAYITO COSTELLO [facility] Start: 11-10-2020 End: 11-11-[address] MAYITO COSTELLO Facility:[facility] Start: 11-10-2020 End: 11-11-2020 Encounter for general adult medical examination without abnormal findings DR MAYITO COSTELLO Facility:[facility] Start: 10-22-2020 End: 10-23-[address] MAYITO COSTELLO Facility:[facility] Start: 09-21-2020 End: 09-22-[address] MAYITO COSTELLO Facility:[facility] Start: 08-31-2020 End: 09-01-2020 ambulatory LEONIDAS JIM Facility:[facility] Procedures Date Procedure Procedure Detail Performing Clinician Start: 10-06-2024 Adult depression scr eening assessment Zoie Ng CARE TRANSITION COORDINATOR Start: 07-23-2024 Gluc bld gluc mntr d ev cleared fda spec home use [facility] Provider Start: 07-19-2024 Blood count complete auto&auto difrntl wbc Reuben Angela MD Work Phone: Comment on above: Carcinoembryonic ant igen test is used as an aid in monitoring response to treatment or recurrence in patients with established colorectal, breast, lung, prostatic, pancreatic, and ovarian carcinomas. Clinical correlation is required.The Carcinoembryonic antigen test was performed using the [employer] DXI paramagnetic particle chemiluminescent immunoassay method. Results obtained with different assay methods or kits cannot be used interchangeably. Start: 07-01-2024 Urine culture Saad ghotra DO Work Phone: Depression screening Camila Costello Other Plan of Treatment Date Care Activity Detail Author Start: 09-13-2027 Diabetes Screening Diabetes Screening [facility] Start: 07-20-2027 Diabetes Screening Diabetes Screening [facility] Start: 07-11-2027 Diabetes Screening Diabetes Screening [facility] Start: 10-29-2025 Tobacco Screening Tobacco Screening [facility] Start: 10-16-2025 Tobacco Screening Tobacco Screening [facility] Start: 10-06-2025 Depression Screening Depression Screening [facility] Start: 10-06-2025 Tobacco Screening Tobacco Screening [facility] Start: 04-29-2025 End: 04-29-2025 Patient encounter procedure 04/29/2025 12:00 PM EST Office Visit [facility] [address] [facility] [address] [place] [address] Charlene Lugo, PALisaC [address] [place] [address] [facility] Start: 01-13-2025 Influenza vaccination [facility] Start: 11-19-2024 End: 11-19-2024 Patient encounter procedure 11/19/2024 10:30 AM EDT Office Visit [facility] [address] [place] [phone] Elio Walter MD [address] [place] [address] [address] [place] [phone] [facility] Start: 10-29-2024 End: 10-29-2024 Patient encounter procedure 10/29/2024 2:00 PM EDT Office Visit [facility] [address] [place] [address] [place] [address] Kristin Witt MD [address] [place] [address] [facility] Start: 10-29-2024 End: 10-29-2025 Wireless Telemetry (In Office) [facility] Work Phone: Comment on above: Expected: 10/29/2024, Expires: Start: 10-23-2024 End: 10-23-2024 Admission to same day surgery center 10/23/2024 2:00 PM EDT - 10/23/2024 3:30 PM EDT Surgery [facility] [address] [place] [phone] Bradley Pope MD [address] [place] [address], [address] [place] [address] ENDOSCOPIC RETROGRADE CHOLANGIO-PANCREATOGRAPHY [63259 (CPT )] [facility] Comment on above: ENDOSCOPIC RETROGRADE CHOLANGIO-PANCREAT OGRAPHY [83979 (CPT )] Start: 10-23-2024 End: 10-23-2024 Ercp dx collection specimen brushing/washing ENDOSCOPIC RETROGRADE CHOLANGIO-PANCREATOGRAPHY CHOLANGIOCARCINOMA BILIARY TRACT 10/23/2024 2:00 PM EDT [facility] Start: 10-23-2024 Subsequent hospital visit by physician 10/23/2024 2:00 PM EDT Hospital Encounter [facility] [address] [place] [phone] Bradley Pope MD [address] [facility], [address] [place], [place] [id number] [facility] Start: 10-16-2024 End: 10-16-2024 Admission to establishment 10/16/2024 10:00 AM EDT Support Visit Tony Mendez [facility] [address] [facility] [place] [address] Tony Mendez [facility] Start: 10-06-2024 Urine culture [facility] Start: 10-03-2024 End: 10-03-2024 Follow-up encounter 10/03/2024 1:00 PM EDT Visit (SP) Office Hematology/Oncology [address] [place] [address] Reuben Angela MD [address] [facility] [place] [address] Follow up after surgery- path results Hematology/Oncolo gy Comment on above: Follow up after surgery- path results Start: 10-01-2024 End: 10-01-2024 Patient encounter procedure 10/01/2024 2:20 PM EDT Office Visit COLORECTAL SURGERY [address] [place] [id number] [place] [address] [address] [place] [id number] post op, rectal polyp COLORECTAL SURGERY Comment on above: post op, rectal polyp Start: 09-20-2024 End: 09-20-2024 Admission to same day surgery center 09/20/2024 2:20 PM EDT - 09/20/2024 4:00 PM EDT Surgery [facility] Operating Room [id number] [place] [address] [place] [address] [place] [address] EXCISE RECTAL TUMOR VIA TRANSANAL APPROACH [facility] Operating Room Comment on above: EXCISE RECTAL TUMOR VIA TRANSANAL APPROA CH Start: 09-20-2024 End: 09-20-2024 Exc rct paolo not incl muscularis propria EXCISE RECTAL TUMOR VIA TRANSANAL APPROACH Rectal polyp 09/20/2024 2:20 PM EDT [facility] Start: 09-20-2024 End: 09-20-2024 Sigmoidoscopy flx dx w/collj spec br/wa if pfrmd SIGMOIDOSCOPY FLEXIBLE Rectal polyp 09/20/2024 2:20 PM EDT [facility] OR Start: 09-20-2024 Subsequent hospital visit by physician 09/20/2024 2:20 PM EDT Hospital Encounter [facility] Operating Room [address] [place] [address] [place] [address] [place] [address] Rectal polyp [K62.1] [facility] Operating Room Comment on above: Rectal polyp [K62.1] Start: 09-12-2024 End: 09-12-2024 Anesthesia consultation 09/12/2024 3:10 PM EDT PAT Pre Anesthesia [address] [place] [address] 2, Pacc [place] [address] [place] [address] 5 EXCISE RECTAL TUMOR VIA TRANSANAL APPROACH Pre Anesthesia Comment on above: 09/20 EXCISE RECTAL TUMOR VIA TRANSANAL AP PROACH Start: 09-09-2024 End: 09-09-2024 Patient encounter procedure 09/09/2024 2:00 PM EDT Office Visit General Surgery [address] [facility] [address] [place], [place] [id number] Hugo Taylor MD [address] [place] [address] New: IH cholangiocarcinoma; ref by Dr. Alexis; MRI 09/02/2024 General Surgery Comment on above: New: IH cholangiocarcinoma; ref by Dr. 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) [C22.9] Colorectal Surgery Comment on above: Adenocarcinoma determined by biopsy of l iver (HCC) [C22.9] Start: 08-22-2024 End: 08-22-2024 Telephone follow-up 08/22/2024 4:40 PM EDT [facility] Hematology/Oncology [address] [place] [address] Reuben Angela MD [address] [place] [address] [place] [address] Phone follow up after MRIs Hematology/Oncolo gy Comment on above: Phone follow up after MRIs Start: 08-08-2024 End: 08-08-2024 Patient encounter procedure 08/08/2024 2:00 PM EDT Office Visit Colorectal Surgery [address] [address] [place] [address] [place] [address] Consult to [facility] Colorectal Surgery Comment on above: Consult to [facility] Start: 08-01-2024 End: 08-01-2024 ambulatory 08/01/2024 3:00 PM EDT [facility] Hematology/Oncology [address] [address] Jae Bourne MD [address] [place] [address] Virtual Visit in 2 weeks Hematology/Oncolo gy Comment on above: Virtual Visit in 2 weeks Start: 07-19-2024 End: 07-19-2024 ambulatory 07/19/2024 4:00 PM EST Visit (SP) Office Hematology/Oncology [address] [place] [address] Reuben Angela MD [address] [place] [address] Mayito Costello DX: adenocarcinoma of liver Hematology/Oncolo gy Comment on above: Ref by Dr Mayito Costello DX: adenocarcino ma of liver Start: 07-19-2024 End: 10-18-2024 Cancer Ag 19-9 [Units/volume] in Serum or Plasma [facility] Comment on above: Expected: 07/19/2024, Expires: 5 Start: 07-19-2024 End: 07-19-2025 Carcinoembryonic Ag [Mass/volume] in Serum or Plasma [facility] Work Phone: Comment on above: Expected: 07/19/2024, Expires: 6 Start: 07-01-2024 Bacteria identified in Urine by Culture Urine Culture [facility] Start: 07-01-2024 Urine culture [facility] Start: 05-15-2024 Advance Directive Discussion Advance Directive Discussion [facility] Start: 01-14-2024 Covid-19 Vaccine ( season) Covid-19 Vaccine ( season) [facility] Start: 01-14-2024 Covid-19 Vaccine ( season) Covid-19 Vaccine ( season) [facility] Start: 01-14-2024 Influenza vaccination Influenza Vaccine (#1) [facility] Start: 2018 RSV Vaccine (1 - 1-dose 75+ series) RSV Vaccine (1 - 1-dose 75+ series) [facility] Start: 02-04-2008 Fall Risk Screening Fall Risk Screening [facility] Start: 02-04-2008 Screening for osteoporosis Bone Density Screening [facility] Start: 1993 Administration of varicella zoster vaccine Zoster (Shingles) Vaccine (1 of 2) [facility] Start: 1993 Pneumococcal Vaccine: 50+ (1 of 1 - PCV) Pneumococcal Vaccine: 50+ (1 of 1 - PCV) [facility] Start: 1993 Shingrix Vaccine (1 of 2) Shingrix Vaccine (1 of 2) [facility] Start: 1962 DTaP,Tdap and Td Vaccines (1 - Tdap) DTaP,Tdap and Td Vaccines (1 - Tdap) [facility] Start: 1962 Urine microalbumin profile DTaP,Tdap,Td Vaccine (1 - Tdap) [facility] Start: 1961 Anxiety Screening Anxiety Screening [facility] Start: 1961 Depression Screening Depression Screening [facility] Comprehensive metabo lic 2000 panel - Serum or Plasma [facility] CT Abdomen and Pelvi s W contrast IV [facility] NONELIQUIDCDX Lab Routine Cholangiocarcinoma (HCC) 07/23/2024 11:16 AM EDT [facility] Work Phone: Interventional radio logy Consult note IR INTERVENTIONAL RADIOLOGY CONSULT Radiology Routine Malignant neoplasm of liver, unspecified liver malignancy type (HCC) Liver mass Ordered: 09/30/2024 [facility] Work Phone: Comment on above: Ordered: 09/30/2024 End: 09-03-2025 MR Lumbar spine WO and W contrast IV MRI LUMBAR SPINE WO/W IVCON Radiology DANI 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 (HCC) Rectal mass 1 Occurrences starting 08/04/2024 until 09/03/2025 [facility] Comment on above: 1 Occurrences starting 08/04/2024 until 09/03/2025 End: 09-03-2025 MR Thoracic spine WO and W contrast IV MRI THORACIC SPINE WO/W IVCON Radiology DANI 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 (HCC) Rectal mass 1 Occurrences starting 08/04/2024 until 09/03/2025 [facility] Work Phone: Comment on above: 1 Occurrences starting 08/04/2024 until 09/03/2025 OUTSIDE SURG PATH SL KAE REVIEW OUTSIDE SURG PATH SLIDE REVIEW Lab Routine Malignant neoplasm of liver, unspecified liver malignancy type (HCC) Ordered: 09/09/2024 [facility] Work Phone: Comment on above: Ordered: 09/09/2024 End: 08-18-2025 PET+CT Guidance for localization of tumor of Skull base to mid-thigh-- W 18F-FDG IV NM PET/CT SKULL-THIGH INITIAL Radiology Routine Cholangiocarcinoma of biliary tract (HCC) Other specified abnormal findings of blood chemistry 1 Occurrences starting 07/19/2024 until 08/18/2025 [facility] Comment on above: 1 Occurrences starting 07/19/2024 until 08/18/2025 PET+CT Guidance for localization of tumor of Skull base to mid-thigh-- W 18F-FDG IV NM PET/CT SKULL-THIGH INITIAL Radiology Routine Cholangiocarcinoma of biliary tract (HCC) Other specified abnormal findings of blood chemistry 07/23/2024 1:22 PM EDT [facility] Work Phone: XR Chest 2 Views [facility] Payers Date Payer Category Payer Commercial Managed C are - POS [employer] [id number] 2022 Private Health Insurance [employer] S UPPLEMENT [id number] 2022 Private Health Insurance CLI [id number] 2008 Medicare [id number] 1959 Medicare [id number] 1959 Self-pay 1959 Unknown [id number] 1943 Unknown [id number] 1943 Unknown [id number] 1943 Unknown [id number] 1945 Unknown [id number] Unknown [id number] Unknown [id number] Unknown [id number] Social History Date Type Detail Facility Start: 07-19-2024 End: 10-29-2024 Sex Assigned At [employer] Other Tobacco smoking stat us MIIS Unknown if ever smoked [facility] Work Phone: Start: 04-03-2024 End: 10-03-2024 Sex Female (finding) [facility] Start: 1945 Sex Assigned At Female [facility] Start: 1945 Sex assigned at Not on file [facility] Start: 07-19-2024 End: 10-16-2024 Tobacco smoking status NHIS Never smoked tobacco [facility] Start: 07-19-2024 End: 10-16-2024 Tobacco use and exposure Smokeless tobacco non-user [facility] Start: 07-19-2024 End: 10-29-2024 Alcoholic beverage intake Ex-drinker (finding) [facility] Start: 07-19-2024 End: 10-29-2024 History of Social function [facility] National Score (1-10 0), lower number is lower risk 80 [facility] Start: 07-19-2024 Alcohol Comment occasionally [facility] Start: 09-06-2024 Gender identity Identifies as female gender (finding) [facility] Start: 09-06-2024 Sexual orientation Heterosexual (finding) [facility] Start: 09-12-2024 Alcoholic beverage intake Current drinker of alcohol (finding) [facility] Start: 09-12-2024 Alcohol Comment rare [facility] Has the [employer], [employer], or [employer] threatened to shut off services in your home in past 12Mo No [facility] How often to you hav e a drink containing alcohol? Never [employer] Start: 10-06-2024 Alcohol Comment nothing for 5-6 months; used to have a glass of wine at night [facility] History of tobacco use Passive smoker [facility] Goals Date Patient Goal Desired Activity /State Personal health goal Personal health goal Comment on above: Formatting of this n ote might be different from the original. Evaluation of progress towards goal: Patient plan to discharge home with self care and family support. Clinical Notes 04-03-2024 to 10-29-2024 Kristin Witt MD - 10/29/2024 2:00 PM EDTTelephone Encounter - Regine Pnoce CMA - 10/28/2024 1:33 PM EDTTelephone Encounter - Regine Ponce CMA - 10/28/2024 1:33 PM EDTPatient Instructions Note Date & Type Note Facility 10-29-2024 History of Present illness Narrative Jenna Kumar Date of visit: 10/29/2024 Date of : 1945 Age: 79 y.o. Patient Active Problem List Diagnosis Closed fracture of cervical vertebra, unspecified cervical vertebral level, initial encounter ([facility]) Syncope Allergies Allergen Reactions Ceftriaxone Hives Meropenem Itching and Rash Penicillins Hives Sulfadiazine Hives Macrobid [Nitrofurantoin Monohyd/M-Cryst] Facial Swelling Lip swelling Zofran [Ondansetron Hcl] Dizziness Current Outpatient Medications Medication Sig Dispense Refill acetaminophen (TYLENOL EXTRA STRENGTH) 500 mg tablet Take 1 tablet (500 mg total) by mouth every 6 (six) hours as needed for pain. 30 tablet 0 diazePAM (VALIUM) 2 mg tablet Take 1 tablet (2 mg total) by mouth every 6 (six) hours as needed for anxiety. losartan (COZAAR) 25 mg tablet Take 1 tablet (25 mg total) by mouth in the morning. Indications: high blood pressure. afternoon. metoprolol tartrate (LOPRESSOR) 25 mg tablet Take 0.5 tablets (12.5 mg total) by mouth in the morning and 0.5 tablets (12.5 mg total) before bedtime. BBB. No current facility-administered medications for this visit. Chief Complaint Patient presents with Follow-up EST PT, HOSP FU IP TTH SCHED W/PT History of Present Illness I had the opportunity to meet this 79-year-old. She was discharged from [facility] 10/11/2024 after an admission for syncope with cervical vertebral fractures Patient underwent excision of a rectal tumor in [place] 09/20/2024 She was troubled by diarrhea. She felt she was dehydrated and was trying to hydrate at home.. She did have dizziness and lightheadedness prior to her syncopal episode She denies chest pain. She denies shortness of breath. She has rare dizziness and lightheadedness with positional changes but this has been of longstanding and is fleeting. 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 She is . She is accompanied today by her son CV TESTING HISTORY: ECHO: Echo complete W/O contrast Result Date: 10/08/2024 Left Ventricle: Left ventricle is small. There is moderate increased wall thickness/hypertrophy. Systolic function is normal with an ejection fraction of 60-65%. No segmental wall motion abnormalities. Tricuspid Valve: There is no pulmonary hypertension. Right Ventricle: Systolic function is low normal. Abnormal tricuspid annular plane systolic excursion. STRESS: No results found. HOLTER: No results found. CARDIAC CATH: No results found. CAROTID: No results found. CXR: No results found. Lipid Profile: Past Medical History: Diagnosis Date BBB (bundle branch block) Biliary stricture ([facility]) Closed fracture of cervical vertebra, unspecified cervical vertebral level, initial encounter ([facility]) 10/06/2024 Dental disease bottom partial GI bleed Glaucoma Head injury 10/06/2024 Hypertension Liver cancer ([facility]) Rash basal cell Skin cancer Syncope 10/06/2024 Visual impairment glasses Past Surgical History: Procedure Laterality Date BASAL CELL CARCINOMA EXCISION COLON SURGERY 09/20/2024 [facility]-excised rectal tumor COLONOSCOPY 06/2024 ERCP 08/13/2024 multiple recently with stent exchange Family History Problem Relation Age of Onset Anesthesia problems Neg Hx Social History Socioeconomic History Marital status: Spouse name: Not on file Number of children: Not on file Years of education: Not on file Highest education level: Not on file Occupational History Not on file Tobacco Use Smoking status: Never Passive exposure: Past Smokeless tobacco: Never Vaping Use Vaping status: Never Used Substance and Sexual Activity Alcohol use: Not Currently Comment: nothing for 5-6 months; used to have a glass of wine at night Drug use: Never Sexual activity: Defer Other Topics Concern Caffeine Use Yes Social History Narrative Not on file Social Drivers of Health Financial Resource Strain: Low Risk (10/06/2024) Overall Financial Resource Strain (CARDIA) Difficulty of Paying Living Expenses: Not hard at all Food Insecurity: No Food Insecurity (10/29/2024) Hunger Screening Food Insecurity - Worry: Never True Food Insecurity - Inability: Never True Transportation Needs: No Transportation Needs (10/06/2024) PRAPARE - Transportation Lack of Transportation (Medical): No Lack of Transportation (Non-Medical): No Physical Activity: Not on file Stress: Not on file Social Connections: Not on file Interpersonal Safety: Not At Risk (10/06/2024) Humiliation, Afraid, Rape, and Kick questionnaire Fear of Current or Ex-Partner: No Emotionally Abused: No Physically Abused: No Sexually Abused: No Housing Instability: Low Risk (10/06/2024) Housing Instability Housing Instability: No Review of Systems Review of Systems Constitutional: Positive for malaise/fatigue. HENT: Negative. Eyes: Positive for blurred vision. Cardiovascular: Negative. Vascular: Negative. Respiratory: Negative. Endocrine: Negative. Hematologic/Lymphatic: Negative. Skin: Negative. Musculoskeletal: Positive for arthritis. Gastrointestinal: Negative. Genitourinary: Negative. Neurological: Positive for light-headedness. Negative for loss of balance. Psychiatric/Behavioral: Negative. Allergic/Immunologic: Negative. CARDIOVASCULAR: Please review HPI. Physical Examination General appearance: Alert, oriented and cooperative. In no acute distress. Pleasant Skin: Warm and dry to touch. Neck: Cervical collar Respiratory: Clear to auscultation bilaterally, no use of accessory muscles. Cardiovascular: RRR with normal S1 and S2 with no murmurs. Musculoskeletal: No peripheral edema. VITAL SIGNS: BP 146/74 Pulse 87 Ht 162.6 cm (5' 4 ) Wt 59.4 kg (131 lb) SpO2 100% BMI 22.49 kg/m No orders of the defined types were placed in this encounter. There are no discontinued medications. IMPRESSIONS/PLAN 1. Syncope, unspecified syncope type - Wireless Telemetry (In Office); Future 1. Syncope with injury --appears to be associated with dehydration 2. Cervical vertebral fractures --remains in cervical collar at this time 3. Primary hypertension -losartan -metoprolol tartrate 4. Normal left ventricular systolic function on echocardiogram 09/2024 with moderate left ventricular hypertrophy 5. Chronic left bundle-branch block --per patient recognized as early as age 38 6. Liver adenocarcinoma s/p biliary stent --pending meeting with Oncology for treatment plan Patient voices concern that wearing a monitor for 30 days would be limiting for her. It is reasonable with a high likelihood that this was associated with dehydration to obtain a wireless telemetry for 14 days. If no significant arrhythmia is discovered she may return to driving from a cardiology standpoint. She is not driving while she has the neck brace etcetera TODAYS ORDERS Orders Placed This Encounter Procedures Wireless Telemetry (In Office) FOLLOW UP Return in about 6 months (around 04/30/2025) for [place]. PCP: MAYITO COSTELLO DO Referring Physician: Mayito Costello DO [address] [place] [address] documented in this encounter [facility] 10-28-2024 Miscellaneous Notes Called patient to remind them to bring their most current copy of their medication list with them to their appt. Patient verbalizes understanding. documented in this encounter [facility] 10-28-2024 Telephone encounter Note Called patient to remind them to bring their most current copy of their medication list with them to their appt. Patient verbalizes understanding. [facility] 10-28-2024 Miscellaneous Notes Called patient to remind them to bring their most current copy of their medication list with them to their appt. Patient verbalizes understanding. documented in this encounter [facility] 10-28-2024 Telephone encounter Note Called patient to remind them to bring their most current copy of their medication list with them to their appt. Patient verbalizes understanding. [facility] 10-16-2024 Instructions Formatting of th is note might be different from the original. Your surgery/procedure is scheduled at [facility] on 10/23/24 at 2 pm Arrival Time 12 pm [facility] Address: [address] [place] [address] in [address] Parking lot located on [facility]. Report to the Entrance B. Check in at the information desk the surgery. The waiting room located on the second floor. If you have any questions prior to surgery, please call Pre-Admission Clinic at [phone] between 7:30 am and 4:30 pm Monday through Monday. If you have questions the morning of surgery, please call the Pre-op Department at [phone]. Notify your SURGEON if you develop any illness such as a cold, cough, fever, sore throat, vomiting or are hospitalized between now and your surgery. Medication Instructions (Do not stop your medications without consulting the prescribing physician). Take the following medications the morning of surgery with a sip of water: metoprolol Diabetic or Weight loss medications: HOLD n/a LAST DOSE n/a Take inhalers as prescribed the morning of surgery. Due to the risk associated with these medications. If these medications are not held per instruction below, your surgery is at an increased risk for cancellation. SGLT2 Medications- Hold 3 days prior to surgery: Jardiance, Empagliflozin, Farxiga, Dapagliflozin, Invokana, Canagliflozin, Trijardy, Synjardy GLP-1 Medications (Injection or Pill)- If taken daily hold day of surgery. If taken weekly, hold 1 week prior to surgery: Adlyxin, Byetta, Bydureon, Ozempic, Rybelsus,Trulicity, Victoza, Wegovy, Lixisenatide, Exenatide, Semaglutide, Dulaglutide, Liraglutide GIP/GLP-1(Injection or Pill)- If taken daily hold day of surgery. If taken weekly, hold 1 week prior to surgery: Jojo . Blood thinners: Please contact your prescribing physician regarding a stop/hold date for these medications. Medications such as Coumadin, Heparin, Aspirin, Plavix, Eliquis, Pradaxa Diabetics: If you take insulin, contact your prescribing doctor for instructions on how to manage this the night before and the morning of surgery. Non-steriodal Anti-Inflammatory Drugs (NSAIDS)- Hold 3 days prior to surgery unless otherwise directed by your surgeon. Vitamins/Herbal Products: You may continue to take your prescribed vitamins such as potassium, iron, vitamin B, vitamin C, or multivitamin unless specifically instructed by your surgeon to hold. STOP taking all herbal products/teas one week prior to your surgery. Marijuana: Stop marijuana 72 hours prior to surgery, stop CBD oil 48 hours prior to surgery. If you have been given bowel prep instructions by your surgeon, please call the surgeon's office with any questions about these instructions. What do I do the day of Surgery? Age 2 through adult - Stop all solids by midnight, You may have clear liquids up to 2 hours before surgery, unless otherwise instructed by your surgeon. Clear liquids are: water, sports drinks such as Gatorade or G2, or apple juice. You may NOT have: tube feedings, dairy products, alcoholic beverages, orange juice, or any liquids with solids or pulp in it. If applicable, shower again with CHG soap the morning of your surgery. In order to help prevent infection post-operatively, you may be asked to use a CHG mouthwash when you arrive to the Pre-op area. Your nurse will provide instruction the morning of. What do I need to do to prepare for surgery? If you will be going home the same day as your surgery, arrange for an adult over [address] Riding in a bus or taxi by yourself is not permitted. You should not smoke or drink alcohol 24 hours before your surgery. Alcohol thins the blood and may cause bleeding problems during surgery. Smoking increases the risk of breathing problems after surgery. Do not use lotions, creams, powders, perfume, make up, cologne or after-shaves day of surgery. Remove ALL jewelry including wedding rings, body piercings (including dermal piercing's, hair extensions that contain metal, nail serbian, make-up, and contact lens. You may brush your teeth the morning of surgery, but do not swallow the water. Wear your dentures and partial plates to the hospital (no adhesive). Shower the night the before. If applicable, use the CHG (chlorhexidine gluconate) soap or wipes. Place clean linens on your bed after showering. Do not allow pets to sleep in your bed What should I bring to the hospital? Eyeglass or contact lens case If you will be spending the night, please bring personal care items and leave them in the car until you are taken to your room after surgery. Leave ALL valuables at home. If any of these instructions conflict with those you received from the surgeon, please seek clarification from your surgeon's office. DEEP BREATHING EXERCISES This exercise helps promote good air exchange and helps to prevent pneumonia after surgery. Breathe in slowly and deeply through the nose. Hold your breath for a few seconds and then exhale slowly through the mouth. Repeat this three times and then cough.Coughing helps to clear your lungs. If you have had a surgery with an incision into your abdomen or chest, press gently against your incision with a pillow or a folded blanket when you cough. Please be aware - it may not be curtis to cough following some types of surgeries involving the eyes, ears, sinuses and throat. Always follow your doctor's instructions. LEG EXERCISE These exercises help promote good circulation and help to prevent blood clots after surgery. Point your toes to the ceiling and then point them to the wall. Do this slowly about 15-20 times. You may also move your feet in circles. Do the exercise that is most comfortable for you. If you have had surgery involving your shoulder or arm, we recommend you move your fingers. PRACTICING We ask that you begin practicing these exercises before your surgery. After surgery try to do both exercises at least every 2 hours during the day and early evening. Surgical Site Infection Prevention What is a Surgical Site Infection (SSI)? Infection can happen to the area of the body where surgery is done. This is called a surgical site infection (SSI). A SSI does not happen very often. What are some of the things that hospitals are doing to prevent SSIs? Soap and water or alcohol hand rub are used before and after caring for each patient. Special soap is used to clean surgery workers hands and arms just before the surgery. Masks, gowns, gloves and hair covers are worn during the surgery to keep the area clean. Hair in the surgery area may be removed with clippers (not razors). A special soap that kills germs is used to clean the skin at the surgery site. Antibiotics may be given before the surgery starts. What can you do to prevent SSIs? Before surgery: You may be asked to shower or bathe with a special soap that kills germs the night before and the day of surgery. Use the soap as you were told. Place clean sheets on your bed the night before surgery and do not allow your pets in your bed. If you smoke or vape, stop or cut down. This creates a stress response in your body that increases inflammation, constricts blood vessels and deprives your tissues of oxygen. After surgery, this stress response disrupts the travel of oxygen, nutrients, and blood to your surgical site, interfering with the wound healing process. It also decreases the ability of your cells to fight infection. Ask your doctor about ways to quit. If you have high blood sugars or diabetes please talk with your doctor about having healthy blood sugar levels to promote healing. Do not shave near where you will have surgery. Shaving can irritate the skin and make it easier to get and infection. After surgery: Be sure that the doctors and nurses clean their hands before and after touching you. Be sure your family and friends clean their hands before and after visiting you. Do not be afraid to remind them. Always wash your hands before touching your incisional area. * Care for your wound at home as told by your doctor or nurse * Call your doctor right away if you have fever, redness, increased pain, or drainage at the surgery site. Can SSIs be treated? Antibiotics are used to treat SSI. Some patients may need another surgery to treat the infection. The doctor will discuss treatment options with you. Further questions? Contact the doctor, nurse or the Infection Prevention and Control department if you have any questions. PATIENT RIGHTS AND RESPONSIBILITIES As a patient at [facility], you have the right to: Receive medical care and be informed of who is taking care of you Be treated with dignity and respect Have a family member/pharmacy services representative of choice and your physician notified of your admission Receive information and actively participate in decisions about your care and treatment Refuse care, treatment and services Decide who may provide your support and speak for you Access druze and spiritual services Participate in ethical issues and questions about your care Receive private and confidential care Have appropriate assessment and management of your pain Know guest visitation restrictions or limitations Have an advance directive Access protective services Consent or refuse to participate in research studies or production or recordings, films or other images Have resolution of your complaints Receive information of hospital charges and payment methods Patient/patient pharmacy services representative responsibilities are to: Provide information about health status to facilitate care, treatment and services Follow the treatment, plan, keep appointments and speak up when you do not understand the plan Respect the rights of other patients and healthcare personnel Follow organizational rules and regulations that support quality care and a safe environment Fulfill financial obligations as promptly as possible [facility] 10-16-2024 Miscellaneous Notes Message left for Eliezer at Dr. Pope's office to notify Dr. Pope that pt is in a neck brace for a recent closed fracture of her cervical vertebra that occurred on 10/06/24. She is presently scheduled for an ERCP w/Dr Pope at [facility] on 10/23/2024. Your surgery/procedure is scheduled at [facility] on 10/23/24 at 2 pm Arrival Time 12 pm [facility] Address: [address] [place] [address] Park in [address] Parking lot located on [facility]. Report to the Entrance B. Check in at the information desk the surgery. The waiting room located on the second floor. If you have any questions prior to surgery, please call Pre-Admission Clinic at [phone] between 7:30 am and 4:30 pm Monday through Monday. If you have questions the morning of surgery, please call the Pre-op Department at [phone]. Notify your SURGEON if you develop any illness such as a cold, cough, fever, sore throat, vomiting or are hospitalized between now and your surgery. Medication Instructions (Do not stop your medications without consulting the prescribing physician). Take the following medications the morning of surgery with a sip of water: metoprolol Diabetic or Weight loss medications: HOLD n/a LAST DOSE n/a Take inhalers as prescribed the morning of surgery. Due to the risk associated with these medications. If these medications are not held per instruction below, your surgery is at an increased risk for cancellation. SGLT2 Medications- Hold 3 days prior to surgery: Jardiance, Empagliflozin, Farxiga, Dapagliflozin, Invokana, Canagliflozin, Trijardy, Synjardy GLP-1 Medications (Injection or Pill)- If taken daily hold day of surgery. If taken weekly, hold 1 week prior to surgery: Adlyxin, Byetta, Bydureon, Ozempic, Rybelsus,Trulicity, Victoza, Wegovy, Lixisenatide, Exenatide, Semaglutide, Dulaglutide, Liraglutide GIP/GLP-1(Injection or Pill)- If taken daily hold day of surgery. If taken weekly, hold 1 week prior to surgery: Mounjaro . Blood thinners: Please contact your prescribing physician regarding a stop/hold date for these medications. Medications such as Coumadin, Heparin, Aspirin, Plavix, Eliquis, Pradaxa Diabetics: If you take insulin, contact your prescribing doctor for instructions on how to manage this the night before and the morning of surgery. Non-steriodal Anti-Inflammatory Drugs (NSAIDS)- Hold 3 days prior to surgery unless otherwise directed by your surgeon. Vitamins/Herbal Products: You may continue to take your prescribed vitamins such as potassium, iron, vitamin B, vitamin C, or multivitamin unless specifically instructed by your surgeon to hold. STOP taking all herbal products/teas one week prior to your surgery. Marijuana: Stop marijuana 72 hours prior to surgery, stop CBD oil 48 hours prior to surgery. If you have been given bowel prep instructions by your surgeon, please call the surgeon's office with any questions about these instructions. What do I do the day of Surgery? Age 2 through adult - Stop all solids by midnight, You may have clear liquids up to 2 hours before surgery, unless otherwise instructed by your surgeon. Clear liquids are: water, sports drinks such as Gatorade or G2, or apple juice. You may NOT have: tube feedings, dairy products, alcoholic beverages, orange juice, or any liquids with solids or pulp in it. If applicable, shower again with CHG soap the morning of your surgery. In order to help prevent infection post-operatively, you may be asked to use a CHG mouthwash when you arrive to the Pre-op area. Your nurse will provide instruction the morning of. What do I need to do to prepare for surgery? If you will be going home the same day as your surgery, arrange for an adult over [address] Riding in a bus or taxi by yourself is not permitted. You should not smoke or drink alcohol 24 hours before your surgery. Alcohol thins the blood and may cause bleeding problems during surgery. Smoking increases the risk of breathing problems after surgery. Do not use lotions, creams, powders, perfume, make up, cologne or after-shaves day of surgery. Remove ALL jewelry including wedding rings, body piercings (including dermal piercing's, hair extensions that contain metal, nail serbian, make-up, and contact lens. You may brush your teeth the morning of surgery, but do not swallow the water. Wear your dentures and partial plates to the hospital (no adhesive). Shower the night the before. If applicable, use the CHG (chlorhexidine gluconate) soap or wipes. Place clean linens on your bed after showering. Do not allow pets to sleep in your bed What should I bring to the hospital? Eyeglass or contact lens case If you will be spending the night, please bring personal care items and leave them in the car until you are taken to your room after surgery. Leave ALL valuables at home. If any of these instructions conflict with those you received from the surgeon, please seek clarification from your surgeon's office. DEEP BREATHING EXERCISES This exercise helps promote good air exchange and helps to prevent pneumonia after surgery. Breathe in slowly and deeply through the nose. Hold your breath for a few seconds and then exhale slowly through the mouth. Repeat this three times and then cough.Coughing helps to clear your lungs. If you have had a surgery with an incision into your abdomen or chest, press gently against your incision with a pillow or a folded blanket when you cough. Please be aware - it may not be curtis to cough following some types of surgeries involving the eyes, ears, sinuses and throat. Always follow your doctor's instructions. LEG EXERCISE These exercises help promote good circulation and help to prevent blood clots after surgery. Point your toes to the ceiling and then point them to the wall. Do this slowly about 15-20 times. You may also move your feet in circles. Do the exercise that is most comfortable for you. If you have had surgery involving your shoulder or arm, we recommend you move your fingers. PRACTICING We ask that you begin practicing these exercises before your surgery. After surgery try to do both exercises at least every 2 hours during the day and early evening. Surgical Site Infection Prevention What is a Surgical Site Infection (SSI)? Infection can happen to the area of the body where surgery is done. This is called a surgical site infection (SSI). A SSI does not happen very often. What are some of the things that hospitals are doing to prevent SSIs? Soap and water or alcohol hand rub are used before and after caring for each patient. Special soap is used to clean surgery workers hands and arms just before the surgery. Masks, gowns, gloves and hair covers are worn during the surgery to keep the area clean. Hair in the surgery area may be removed with clippers (not razors). A special soap that kills germs is used to clean the skin at the surgery site. Antibiotics may be given before the surgery starts. What can you do to prevent SSIs? Before surgery: You may be asked to shower or bathe with a special soap that kills germs the night before and the day of surgery. Use the soap as you were told. Place clean sheets on your bed the night before surgery and do not allow your pets in your bed. If you smoke or vape, stop or cut down. This creates a stress response in your body that increases inflammation, constricts blood vessels and deprives your tissues of oxygen. After surgery, this stress response disrupts the travel of oxygen, nutrients, and blood to your surgical site, interfering with the wound healing process. It also decreases the ability of your cells to fight infection. Ask your doctor about ways to quit. If you have high blood sugars or diabetes please talk with your doctor about having healthy blood sugar levels to promote healing. Do not shave near where you will have surgery. Shaving can irritate the skin and make it easier to get and infection. After surgery: Be sure that the doctors and nurses clean their hands before and after touching you. Be sure your family and friends clean their hands before and after visiting you. Do not be afraid to remind them. Always wash your hands before touching your incisional area. * Care for your wound at home as told by your doctor or nurse * Call your doctor right away if you have fever, redness, increased pain, or drainage at the surgery site. Can SSIs be treated? Antibiotics are used to treat SSI. Some patients may need another surgery to treat the infection. The doctor will discuss treatment options with you. Further questions? Contact the doctor, nurse or the Infection Prevention and Control department if you have any questions. PATIENT RIGHTS AND RESPONSIBILITIES As a patient at [facility], you have the right to: Receive medical care and be informed of who is taking care of you Be treated with dignity and respect Have a family member/pharmacy services representative of choice and your physician notified of your admission Receive information and actively participate in decisions about your care and treatment Refuse care, treatment and services Decide who may provide your support and speak for you Access druze and spiritual services Participate in ethical issues and questions about your care Receive private and confidential care Have appropriate assessment and management of your pain Know guest visitation restrictions or limitations Have an advance directive Access protective services Consent or refuse to participate in research studies or production or recordings, films or other images Have resolution of your complaints Receive information of hospital charges and payment methods Patient/patient pharmacy services representative responsibilities are to: Provide information about health status to facilitate care, treatment and services Follow the treatment, plan, keep appointments and speak up when you do not understand the plan Respect the rights of other patients and healthcare personnel Follow organizational rules and regulations that support quality care and a safe environment Fulfill financial obligations as promptly as possible documented in this encounter [facility] 10-16-2024 Nurse Note Message left for Eliezer at Dr. Pope's office to notify Dr. Pope that pt is in a neck brace for a recent closed fracture of her cervical vertebra that occurred on 10/06/24. She is presently scheduled for an ERCP w/Dr Pope at [facility] on 10/23/2024. [facility] 10-09-2024 Miscellaneous Notes Phoned pt and per pt wanted to schedule appt for 3 week follow up and hold off on monitor due to wearing neck brace. documented in this encounter [facility] 10-09-2024 Telephone encounter Note Phoned pt and per pt wanted to schedule appt for 3 week follow up and hold off on monitor due to wearing neck brace. [facility] 10-03-2024 Note Patient is scheduled for a repeat ERCP with Dr. Bradley Pope at [facility] on November arriving at 1200 for a 1400 procedure to entrance B;PAT call scheduled for 10/16/24 in the am;case#[id number]. [facility] 09-26-2024 Telephone encounter Note Path reviewed with patient- no evidence of rectal cancer. She will follow up with [facility] for next steps [facility] Work Phone: 09-26-2024 Miscellaneous Notes Path reviewed with patient- no evidence of rectal cancer. 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 [facility] 09-12-2024 Miscellaneous Notes Associated Problem(s): 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 (HCC) Assessment: H/o obstructive jaundice 06/2024 s/p ERCP sphincterotomy and plastic stent placement into the left hepatic lobe, unclear primary (hepatobiliary vs colorectal), awaiting results of rectal tumor resection to determine tx. Associated Problem(s): OK (generalized anxiety disorder) Assessment: Stable, sx managed on Valium PRN. Associated Problem(s): Anemia Images from the original note were not [...] Lymph 1.00 - 4.00 k/uL 4.76 Abs [place] <0.87 k/uL 1.32 Abs Eosin <0.46 k/uL 0.44 Abs Baso <0.11 k/uL 0.15 NRBC /100 WBC 0.0 Associated Problem(s): PVC's (premature ventricular contractions) Assessment: Premature supraventricular complexes noted on ECG in Care Everywhere 07/01/24. Occasional ectopic beats on exam today. On metoprolol. Managed by PCP. Associated Problem(s): LBBB (left bundle branch block) Assessment: Since age 38 per pt. Associated Problem(s): Hypertension Assessment: Controlled on current medication regimen, BP today 133/72. Last 14 BP Last 14 Encounter BP Readings: Date: BP: 09/12/2024 133/72 09/09/2024 166/78[did not take medicaiton today[ 09/05/2024 162/88 07/19/2024 146/81 documented in this encounter [facility] 09-12-2024 Evaluation + Plan note Associated Problem(s): OK (generalized anxiety disorder) Assessment: Stable, sx managed on Valium PRN. [facility] 09-12-2024 Evaluation + Plan note Associated Problem(s): Anemia Images from the original note were not [...] Lymph 1.00 - 4.00 k/uL 4.76 Abs [place] <0.87 k/uL 1.32 Abs Eosin <0.46 k/uL 0.44 Abs Baso <0.11 k/uL 0.15 NRBC /100 WBC 0.0 [facility] 09-12-2024 Evaluation + Plan note Associated Problem(s): PVC's (premature ventricular contractions) Assessment: Premature supraventricular complexes noted on ECG in Care Everywhere 07/01/24. Occasional ectopic beats on exam today. On metoprolol. Managed by PCP. [facility] 09-12-2024 Evaluation + Plan note Associated Problem(s): LBBB (left bundle branch block) Assessment: Since age 38 per pt. [facility] 09-12-2024 Evaluation + Plan note Associated Problem(s): Hypertension Assessment: Controlled on current medication regimen, BP today 133/72. Last 14 BP Last 14 Encounter BP Readings: Date: BP: 09/12/2024 133/72 09/09/2024 166/78[did not take medicaiton today[ 09/05/2024 162/88 07/19/2024 146/81 [facility] 09-12-2024 Instructions Lucy Arreaga PA-C - 09/12/2024 3:38 PM EDT Images from the original note were not included. [facility] Pre[facility]Anesthesia Consultation [facility] PATIENT PREOPERATIVE INSTRUCTIONS [facility]: [phone] --[id number] [address]. Please check in on the 1st floor at registration desk 6. Please read below carefully for your personalized instructions. Arrival Time for Surgery: - The Surgery Center or hospital where you are having surgery will call the afternoon before surgery (or Monday for Monday surgery) with a scheduled arrival time. - If you have not heard by 4 pm, please contact the surgery center above. Dietary Restrictions: - Follow bowel prep instructions: clear liquids need to be stopped 2 hours prior to schedule arrival at facility - No solid food after midnight. - You may have 12 ounces of clear liquids (water, clear juices such as apple juice or gatorade, carbonated beverages, clear tea, black coffee, jello) until 2 hours before scheduled arrival at facility. Medications: Unless instructed differently below, stay on all of your medications until your surgery. If you start any new medications after today's visit, please contact your surgeon. Pre-Surgery Med Instructions Medication Instructions ondansetron (ZOFRAN) 8 mg tablet Do not take the day of surgery diazePAM (VALIUM) 2 mg tablet Continue as needed losartan (COZAAR) 25 mg tablet If you normally take this medication in the morning, take the morning of surgery. metoprolol tartrate, short acting, (LOPRESSOR) 25 mg tablet If you normally take this medication in the morning, take the morning of surgery. If you start any new medications after today's visit, please contact the surgeon's office. If you are currently using a [id number] injectable or oral medication for diabetes or weight loss such as Dulaglutide (Trulicity), Exenatide (Byetta, Bydureon), Liraglutide (Victoza, Saxenda), Semaglutide (Ozempic, Wegovy, Rybelsus), or Tirzepatide (Mounjaro), the medicine should be stopped at least 7 days before surgery. These medicines can cause food to remain in your stomach for a very long time and increase the risks from surgery and anesthesia. Not stopping the medication for a long enough time may result in your surgery being rescheduled. Blood Thinning Medications: - Stop NSAIDS (Ibuprofen, Advil, Aleve, Motrin, Celebrex, Mobic, etc.) 7 days before surgery, as directed by your surgeon. - Stop Aspirin 7 days before surgery, as directed by your surgeon. - Stop ALL herbal and dietary supplements 7 days before surgery. - You may take Tylenol (Acetaminophen) or any of your pain medications that do not contain aspirin or NSAIDS as needed. Important Reminders: - If you use CPAP/BIPAP, bring the machine with you to the surgery center. - If you are prescribed inhalers for breathing, continue using them. Bring your inhalers with you. - Candy, mints, and tobacco products are NOT permitted the morning of surgery. - Hearing aids, dentures and glasses may be worn the morning of surgery. - NO jewelry, body piercings, makeup, hairpins or contacts are to be worn the day of surgery. If you develop symptoms such as a fever, cold, or flu, or have other changes to your health within TWO DAYS of scheduled surgery or the morning of surgery, please contact the surgery center above. Personal Belongings: -Please have photo ID and insurance cards. -If you do not have a copy of advance directives on file with us, please bring a copy with you on the day of surgery. - Leave ALL valuables and money at home or with family members. - Please bring high-quality footwear, such as sneakers, to the hospital for ambulating post-surgery. For Outpatient Procedures: - YOU MUST HAVE A RESPONSIBLE CERTIFIED INDUSTRIAL HYGIENIST TAKE YOU HOME. A EC TEACHER OR COLLECTION SPECIALIST CANNOT BE MADE A RESPONSIBLE CERTIFIED INDUSTRIAL HYGIENIST. - We recommend that a responsible person stays with you overnight to take care of you. - You cannot stay in a hotel alone after outpatient surgery. You will not be permitted to have your surgery, if you do not have someone to take care of you. Please be aware that emergency situations arise, which may delay or change your surgical time. If this happens, we will notify you as soon as possible and regret any inconvenience. If you already have an Advance Directive, please fax a copy to [phone] or email to for it to be added to your chart. If you do not have an Advance Directive, you can find the appropriate form and more information at [email or web address]. We recommend that you complete the Advance Directive form found on the website and bring it with you the day of your surgery. It can be witnessed and scanned into your chart that day. documented in this encounter [facility] 09-12-2024 History and physical note Images from the original note were not included. [facility] [...] Lymph 1.00 - 4.00 k/uL 4.76 Abs Denton <0.87 k/uL 1.32 Abs Eosin <0.46 k/uL [...] BMI less than or equal to 35 kg/m^2 Does not have a large neck Non-male patient STOP-Bang Score: 2 [id number] Score: Age: >=75 Sex: female CHF history: No Hypertension history: Yes Stroke/TIA/thromboembolism history: No Vascular disease history: No Diabetes history: No [id number] Score: 4 I - PHYSICAL EVALUATION AIRWAY Patient intubated: No. Tracheostomy tube not present Mallampati: III. TM distance: >3 FB. Neck ROM: full ROM without neurological symptoms. Mouth opening: adequate. Short neck: no. Thick neck: no Lip Bite Test: II Microretrognathia/Micronagthia/Re cessed Chin: No DENTAL Dental findings: teeth intact. [...] Immunization Status Current Care Gaps Covid-19 Vaccine ( season) Overdue since 01/14/2024 05/05/2021 Outside Immunization: COVID-19, [...] fever. 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 No neurological symptoms or problems. Respiratory: No history of current cough or dyspnea, or pneumonia in the past 6 weeks. No history of respiratory/pulmonary symptoms or problems. Cardiovascular: +LBBB +PVCs - on metoprolol Positive for: hyperlipidemia and hypertension Negative for: AICD/PPM, arrhythmia, atrial fibrillation, CHF, DVT/PE, recent SC, murmur/valvular heart disease, PTCA, open heart surgery [...] Prior to Admission medications as of 09/12/24 1372 Medication Sig Last Dose Taking ondansetron (ZOFRAN) [...] 8 oz (60.1kg) SpO2 98% BMI 22.73 kg/(m^2). Diagnostic tests reviewed for today's visit: Lab Value Units Date High Low HB 10.8 g/dL 07/19/2024 15.5 11.5 HCT 34.4 % 07/19/2024 46.0 36.0 WBC 16.86 k/uL 07/19/2024 11.00 3.70 PLT 368 k/uL 07/19/2024 400 150 NA 137 mmol/L 07/19/2024 144 136 K 3.6 mmol/L 07/19/2024 5.1 3.7 GLUC 109 mg/dL 07/19/2024 99 74 BUN 14 mg/dL 07/19/2024 21 7 CREAT 0.73 mg/dL 07/19/2024 0.96 0.58 PTSEC No results within date range. INR No results within date range. APTT No results within date range. ALT 56 U/L 07/19/2024 38 7 AST 125 U/L 07/19/2024 35 13 TBILI 4.2 mg/dL 07/19/2024 1.3 0.2 TSH No results within date [...] or any previous visit (from the past 21250 hours). Instructions Given to Patient: Instructions located in the after visit summary. Patient given verbal and written preop instructions and voices comprehension and compliance. SIGNATURE: Lucy Arreaga PA-C PATIENT NAME: Jenna Kumar DATE: 09/12/2024 TIME: 3:34 PM PAGER/CONTACT #: [facility] 09-12-2024 History and physical note Images from the original note were not included. [facility] [...] Lymph 1.00 - 4.00 k/uL 4.76 Abs Denton <0.87 k/uL 1.32 Abs Eosin <0.46 k/uL [...] BMI less than or equal to 35 kg/m^2 Does not have a large neck Non-male patient STOP-Bang Score: 2 [id number] Score: Age: >=75 Sex: female CHF history: No Hypertension history: Yes Stroke/TIA/thromboembolism history: No Vascular disease history: No Diabetes history: No [id number] Score: 4 I - PHYSICAL EVALUATION AIRWAY Patient intubated: No. Tracheostomy tube not present Mallampati: III. TM distance: >3 FB. Neck ROM: full ROM without neurological symptoms. Mouth opening: adequate. Short neck: no. Thick neck: no Lip Bite Test: II Microretrognathia/Micronagthia/Re cessed Chin: No DENTAL Dental findings: teeth intact. [...] Immunization Status Current Care Gaps Covid-19 Vaccine ( season) Overdue since 01/14/2024 05/05/2021 Outside Immunization: COVID-19, [...] fever. 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 No neurological symptoms or problems. Respiratory: No history of current cough or dyspnea, or pneumonia in the past 6 weeks. No history of respiratory/pulmonary symptoms or problems. Cardiovascular: +LBBB +PVCs - on metoprolol Positive for: hyperlipidemia and hypertension Negative for: AICD/PPM, arrhythmia, atrial fibrillation, CHF, DVT/PE, recent SC, murmur/valvular heart disease, PTCA, open heart surgery [...] 8 oz (60.1kg) SpO2 98% BMI 22.73 kg/(m^2). Diagnostic tests reviewed for today's visit: Lab Value Units Date High Low HB 10.8 g/dL 07/19/2024 15.5 11.5 HCT 34.4 % 07/19/2024 46.0 36.0 WBC 16.86 k/uL 07/19/2024 11.00 3.70 PLT 368 k/uL 07/19/2024 400 150 NA 137 mmol/L 07/19/2024 144 136 K 3.6 mmol/L 07/19/2024 5.1 3.7 GLUC 109 mg/dL 07/19/2024 99 74 BUN 14 mg/dL 07/19/2024 21 7 CREAT 0.73 mg/dL 07/19/2024 0.96 0.58 PTSEC No results within date range. INR No results within date range. APTT No results within date range. ALT 56 U/L 07/19/2024 38 7 AST 125 U/L 07/19/2024 35 13 TBILI 4.2 mg/dL 07/19/2024 1.3 0.2 TSH No results within date [...] or any previous visit (from the past 97799 hours). Instructions Given to Patient: Instructions located in the after visit summary. Patient given verbal and written preop instructions and voices comprehension and compliance. SIGNATURE: Lucy Arreaga PA-C PATIENT NAME: Jenna Kumar DATE: 09/12/2024 TIME: 3:34 PM PAGER/CONTACT #: documented in this encounter [facility] 09-12-2024 Note HNO ID: [id number] Author: HUGO TAYLOR MD Service: ? Author Type: Physician Type: Progress Notes Filed: 09/12/2024 09:40 Note Text: [facility] Multidisciplinary GI Tumor Board Primary Disease: liver [...] and alternatives to the various treatment options [facility] 09-11-2024 Telephone encounter Note Call returned to patient. She is scheduled for surgery with Dr Durate on 09/20 for rectal polyp removal. She routinely gets biliary drains placed/exchanged in [place] for her liver disorder however under the guidance of Dr Taylor here in [place]. She wishes to have her next drain [...] She is appreciative of the call back. [facility] 09-11-2024 Miscellaneous Notes Call returned to patient. She is scheduled for surgery with Dr Duarte on 09/20 for rectal polyp removal. She routinely gets biliary drains placed/exchanged in [place] for her liver disorder however under the guidance of Dr Taylor here in [place]. She wishes to have her next drain [...] She is appreciative of the call back. Pt stated she has a procedure on [...] need to get off work Vickie Morales, PSS documented in this encounter [facility] 09-11-2024 Telephone encounter Note Pt stated she has a procedure on [...] Pts sons need to get off work BRIANNA Solares [facility] 09-09-2024 History and physical note New Patient Consult REASON FOR VISIT Consultation [...] requiring medication, no history of angina, CHF, SC, cardiac surgery or stents. Denies rest pain, [...] 4.4 oz (60.0kg) SpO2 97% BMI 22.69 kg/(m^2). General Appearance: Well appearing, alert, in no [...] and symmetric. Sensation grossly intact. Abdomen: Negative Fringe Maker present: Yes (son Jony) ASSESSMENT 79 F [...] obtain the EUS FNA slides from 06/28/2024 ([facility]) and have them reviewed at [facility]. We might consider another biopsy if [...] Level: 5 - High Hugo Taylor MD [facility] [place] [facility] September 09, 2024 [facility] 09-09-2024 History and physical note New Patient Consult REASON FOR VISIT Consultation [...] requiring medication, no history of angina, CHF, SC, cardiac surgery or stents. Denies rest pain, [...] 4.4 oz (60.0kg) SpO2 97% BMI 22.69 kg/(m^2). General Appearance: Well appearing, alert, in no [...] and symmetric. Sensation grossly intact. Abdomen: Negative Fringe Maker present: Yes (son Jony) ASSESSMENT 79 F [...] obtain the EUS FNA slides from 06/28/2024 ([facility]) and have them reviewed at [facility]. We might consider another biopsy if [...] Level: 5 - High Hugo Taylor MD [facility] [place] [facility] September 09, 2024 documented in this encounter [facility] 09-09-2024 History of Present illness Narrative Images from the original note were not included. New/Est pt: New patient - ref by [...] effusion. Labs: 07/19/24 CA19-9 <36.0 U/mL <2.0 What is the reason for your visit today? Consult IH cholangiocarcinoma Who is your referring physician? Dr Alexis Are you having poor oral intake? NO Have you had unintentional weight loss of 15 lbs/7 Kg in the last 3-6 months? NO Bowels: regular Wound: Temperature: No Drains: No documented in this encounter [facility] 09-09-2024 Note HNO ID: [id number] Author: GENIE OSORIO RN Service: ? Author [...] effusion. Labs: 07/19/24 CA19-9 <36.0 U/mL <2.0 [facility] 09-09-2024 Note HNO ID: [id number] Author: BONNY MORA MA Service: ? Author Type: Die Maintenance Technician Type: Progress Notes Filed: 09/09/2024 14:48 Note Text: What is the reason for your visit today? Consult IH cholangiocarcinoma Who is your referring physician? Dr Alexis Are you having poor oral intake? NO Have you had unintentional weight loss of 15 lbs/7 Kg in the last 3-6 months? NO Bowels: regular Wound: Temperature: No Drains: No [facility] 09-06-2024 Note HNO ID: [id number] Author: JUAN ALBERTO RUANO RN Service: ? Author Type: Registered Nurse Type: Progress Notes Filed: 09/06/2024 11:37 Note Text: AMBULATORY PATIENT EDUCATION NOTE SURGICAL PREPARATION: TAE and sigmoidoscopy SURGERY DATE: 09-20-24 DIAGNOSIS: rectal polyp Originally scheduled at [facility] on 09/[address] Duarte decided she [...] operative questions. Staff Message sent to OR materials scheduler with procedure/time/date for patient. TIME SPENT: 15 min Electronically Signed By: Juan Alberto CARLOS, RN DDSI Specialty Engine Watchman [facility] 09-06-2024 Note Education ([facility]) AJITJENNIFER ESPINOJosé Mick ([id number]) 1945 F Date Time Provider Department 09/06/24 JUAN ALBERTO RUANO [facility] Reason for Visit: Rectal polyp [Other] During [...] Status:Closed by JUAN ALBERTO RUANO on 09/06/24 [facility] 09-05-2024 Note HNO ID: [id number] Author: OLIVIA DUARTE MD Service: ? Author Type: Physician Type: Progress Notes Filed: 09/05/2024 16:28 Note Text: COLORECTAL SURGERY CLINIC NOTE August 22, 2024 Jenna Kumar 79 year old This consult was requested by Dr. Angela and my final recommendations will be communicated to the requesting health care provider by way of the shared medical record for internal providers or letter via the [employer] Service for external providers. Chief Complaint: [...] of a walker. MRI lumbar spine - [facility] - MRI [ID [id number]] -No evidence for osseous metastasis PAST MEDICAL [...] rectal exam reveals no other palpable mass Fringe Maker present: Yes The sensitive examination was discussed with the Patient or Patient's Authorized Brick Layer. As applicable, any other physician, advance practice provider, medical student, or other health professional student that will be observing or involved in the sensitive examination for educational or training purposes was discussed with the Patient or Authorized Brick Layer. The Patient or Authorized Brick Layer has agreed to proceed (more content not included)... [facility] 08-26-2024 Instructions Reuben Angela MD - 08/26/2024 7:51 AM EDT MRI Liver pending - next week at [facility] Triage please call results. Referral to [facility] @ [place] for rectal mass - confirm malignancy - prior negative biopsy. Following MRI liver will refer to HBS (Mic or Darrell) documented in this encounter [facility] 08-22-2024 History of Present illness Narrative Images from the original note were not included. NAME: Jenna Kumar CLINIC NO.: [id number] DATE OF SERVICE: August 22, 2024 (Abezequiel) Some elements in this clinic note that are critical to medical decision making have been carefully reviewed and included from a prior clinic note dated: August 01, 2024 ([place]) Referring Provider: Mayito Costello, DO Additional Clinicians involved in Jenna Kumar's care: Bradley Pope VIRTUAL VISIT PROGRESS NOTE This is a virtual visit using [employer] Plant Operator Video Call. It required patient-provider interaction for the medical decision making as documented below. I have communicated my name and active licensure. The patient's identity and physical location were verified at the time of this visit. Either the patient or their legal pharmacy services representative has been informed of the risks [...] MRI Liver pending - next week at [facility] Triage please call results. Referral to [facility] [place] for rectal mass - confirm malignancy - prior negative biopsy. 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 MRI liver and MRI spine. Colorectal Surgery consult for rectal mass. Following MRI liver, will refer to HBS. Await [facility] testing. 07/23/2024 - PET/CT: [...] significance. Trace LEFT pleural effusion. 07/23/2024 - [employer] Liquid CDx drawn: Results pasted below August [...] 4.6, Albumin: 1.7 07/01/2024-07/11/2024 - ER at [facility] after a fall due to lightheadedness, dizziness, and hypotension - transferred and admitted at [facility] for GI bleed 06/28/2024 - ERCP & Sigmoidoscopy: Dr. Bradley Pope at [facility] High grade intrahepatic duct mass/stricture, large left [...] in part B may not be entirely pharmacy services representative of a larger mass. 06/21/2024 - [...] then appointment to see [facility] also at [place] to recommend resectability. Updated Visit, August 01, 2024: Virtual Visit Jenna presented for discussion of tumor board discussion that occurred this morning. She feels ok. She is due for stent exchange in the next week. Will need imaging of spine as well as imaging of liver via MRI. Will also refer to HBS and [facility] at [place] for further diagnostics. Initial Visit, July 19, [...] outpatient ERCP and Sigmoidoscopy on 06/28/2024 at [facility]. 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 She had a fall due to lightheadedness, dizziness, and hypotension and presented to the ER at [facility] on 07/01/2024. She was found to have a GI bleed and was transferred to [facility] for management. Scopes were repeated while inpatient [...] life with treatment. 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 She does have exposure to secondhand smoke. Prior History form [facility] Discharge Summary on 07/11/2024: Hospital Course: Ms. Jenna Kumar is an 79 y.o. female transferred from [facility] to [facility] ER when she presented to [facility] for recurrent GI bleed increased fatigue weakness. She was found to have hemoglobin around 7 and blood pressure was low patient was admitted at [facility] on 06/28/2024 with diagnosis of jaundice pruritus [...] Addendum: Patient requested to speak with Dr. Pope prior to discharge. Dr. Pope was in procedure during this time and the GI team had informed him to see the patient. Discharge order was placed after discussing with GI team and ID team and I was trying to get a hold of Dr. Pope prior to discharging the patient. However, the patient was told by staff that Dr. Pope is not in house and patient became very upset and signed discharge papers that she does not agree with the discharge. I tried to talk with the patient that she can wait until Dr. Pope sees her, which may be tomorrow. However, patient was very upset and did not even let me finish speaking and son stated, You are going in circles. She would like to go now. I spoke with Dr. Puri of GI and he confirmed that Dr. Pope will see her today. I called patient and updated her that Dr. Pope was indeed going to see her. She asked for a call from Dr. Pope. Patient is discharged in stable condition. REVIEW [...] CPE Hematology and Oncology Services Provided at: [place], [place] CC: Mayito Costello, DO [address] [facility] [id number] Bradley Pope MD documented in this encounter [facility] 08-22-2024 Note HNO ID: [id number] Author: REUBEN ANGELA MD Service: ? Author Type: Physician Type: Progress Notes Filed: 08/26/2024 07:54 Note Text: NAME: Jenna Kumar CLINIC NO.: [id number] DATE OF SERVICE: August 22, 2024 ([place]) Some elements in this clinic note that are critical to medical decision making have been carefully reviewed and included from a prior clinic note dated: August 01, 2024 ([place]) Referring Provider: Mayito Costello, DO Additional Clinicians involved in Jenna Kumar's care: Bradley Pope VIRTUAL VISIT PROGRESS NOTE This is a virtual visit using [employer] Video Call. It required patient-provider interaction for the medical decision making as documented below. I have communicated my name and active licensure. The patient's identity and physical location were verified at the time of this visit. Either the patient or their legal pharmacy services representative has been informed of the risks [...] MRI Liver pending - next week at [facility] Triage please call results. Referral to [facility] [place] for rectal mass - confirm malignancy - prior negative biopsy. 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 MRI liver and MRI spine. Colorectal Surgery consult for rectal mass. Following MRI liver, will refer to HBS. Await [facility] testing. 07/23/2024 - PET/CT: PRIMARY DISEASE SITE: [...] significance. Trace LEFT pleural effusion. 07/23/2024 - [facility] Liquid CDx drawn: Results pasted below August [...] 4.6, Albumin: 1.7 07/01/2024-07/11/2024 - ER at [facility] after a fall due to lightheadedness, dizziness, and hypotension - transferred and admitted at [facility] for GI bleed 06/28/2024 - ERCP AND Sigmoidoscopy: Dr. Bradley Pope at [facility] High grade intrahepatic duct mass/stricture, large left hepatic mass, common hepatic duct mass Sphincterotomy, 2 intrahepatic duct stents placed Cytology: A. Hepatic duct, brushing: Suspicious for malignancy B. Lymph node, paraduodenal, EUS-gu (more content not included)... [facility] 08-21-2024 Note Called to see about scheduling an repeat ERCP in 6-8 weeks from previous procedure on 08-13-24, as this time she will wait and call me she is following up with her Oncologist in [place]. [facility] 08-20-2024 Telephone encounter Note FYI: Pt reports she is feeling much better since taking the Zofran for her nausea. Thanks you for your help! Ashley Adkins RN [facility] Work Phone: 08-20-2024 Miscellaneous Notes FYI: Pt reports she is feeling much better since taking the Zofran for her nausea. Thanks you for your help! Ashley Adkins RN documented in this encounter [facility] 08-19-2024 Telephone encounter Note Pt reports she received a bill for a medication called liquid cdx . Informed pt that [facility] liquid CDX is a blood test and not a medication. Explained to pt that what she received was not a bill, but likely an EOB. Went on to explain she would be contacted directly by [facility] if her OOP expense is greater than $100. Informed pt that the test results will be used per Dr Angela as part of her treatment planning. Pt verbalizes understanding. No additional questions noted. Ashley Adkins RN [facility] Work Phone: 08-19-2024 Miscellaneous Notes Pt reports she received a bill for a medication called liquid cdx . Informed pt that [employer] liquid CDX is a blood test and not a medication. Explained to pt that what she received was not a bill, but likely an EOB. Went on to explain she would be contacted directly by [facility] if her OOP expense is greater than $100. Informed pt that the test results will be used per Dr Angela as part of her treatment planning. Pt verbalizes understanding. No additional questions noted. Ashley Adkins RN documented in this encounter [facility] 08-19-2024 Telephone encounter Note Pt notified. Encouraged to call if RX doesn't relieve nausea, or for any further concerns. Delisa Alcazar RN [facility] 08-19-2024 Miscellaneous Notes Pt notified. Encouraged to call if RX doesn't relieve nausea, or for any further concerns. Delisa Alcazar RN The following approved medication requests have been transmitted electronically. Requested Prescriptions Signed Prescriptions Disp Refills ondansetron (ZOFRAN) 8 mg tablet 90 tablet 1 Sig: Take 1 tablet by mouth every 8 hours as needed for nausea/vomiting for up to 180 doses. Authorizing Provider: DAVINA HOPKINS APRN.SANDHYA Pt calling to make sure we send something in for her nausea before end of day. Delisa Alcazar RN MRI report scanned. Naya: Please obtain MRI reports/imaging from [facility] (pt was scheduled 08/12/24) Delisa Alcazar RN Pt c/o nausea/loss of appetite. She has an appt 08/22, but symptoms cannot wait. Jose: please advise: Zofran pended to preferred pharmacy, if agreeable Delisa Alcazar RN documented in this encounter [facility] 08-19-2024 Telephone encounter Note The following approved medication requests have been transmitted electronically. Requested Prescriptions Signed Prescriptions Disp Refills ondansetron (ZOFRAN) 8 mg tablet 90 tablet 1 Sig: Take 1 tablet by mouth every 8 hours as needed for nausea/vomiting for up to 180 doses. Authorizing Provider: DAVINA HOPKINS APRN.SAFETY BELT INSTALLER [facility] 08-19-2024 Telephone encounter Note Pt calling to make sure we send something in for her nausea before end of day. Delisa Alcazar RN [facility] 08-19-2024 Telephone encounter Note MRI report scanned. [facility] 08-19-2024 Telephone encounter Note Naya: Please obtain MRI reports/imaging from [facility] (pt was scheduled 08/12/24) Delisa Alcazar RN [facility] 08-19-2024 Telephone encounter Note Pt c/o nausea/loss of appetite. She has an appt 08/22, but symptoms cannot wait. Jose: please advise: Zofran pended to preferred pharmacy, if agreeable Delisa Alcazar RN [facility] 08-13-2024 Note [facility] 08-05-2024 Telephone encounter Note Images from the original note were not included. Reuben Angela MD P [facility] Clerical Pool 1. MRI Spine 2. MRI Liver 3. Referral to [facility] @ [place] for rectal mass 4. Following MRI's will refer to [facility]BS ([facility] or [place]) 5. Virtual visit following MRI. 08/05/24 Spoke to patient, faxed MRI orders to [facility]. Referral to [place] scheduled 08/08 at 2pm. Will scheduled Virtual Follow up will be scheduled after MRIS [facility] 08-05-2024 Miscellaneous Notes Images from the original note were not included. Reuben Angela MD P [facility] Clerical Pool 1. MRI Spine 2. MRI Liver 3. Referral to [facility] [place] for rectal mass 4. Following MRI's will refer to [facility] ([place] or [place]) 5. Virtual visit following MRI. 08/05/24 Spoke to patient, faxed MRI orders to [facility]. Referral to [place] scheduled 08/08 at 2pm. Will scheduled Virtual Follow up will be scheduled after MRIS documented in this encounter [facility] 08-04-2024 Instructions Reuben Angela MD - 08/04/2024 5:38 PM EDT MRI Spine MRI Liver Referral to [facility] [place] for rectal mass Following MRI's will refer to EMI (Mic or Darrell) Virtual visit following MRI. documented in this encounter [facility] 08-01-2024 History of Present illness Narrative Images from the original note were not included. NAME: Jenna Kumar CLINIC NO.: [id number] DATE OF SERVICE: August 01, 2024 ([place]) Some elements in this clinic note that are critical to medical decision making have been carefully reviewed and included from a prior clinic note dated: July 19, 2024 ([place]) Referring Provider: Mayito Costello, DO Additional Clinicians involved in Jenna Kumar's care: Bradley Pope VIRTUAL VISIT PROGRESS NOTE This is a virtual visit using [employer] Video Call. It required patient-provider interaction for the medical decision making as documented below. I have communicated my name and active licensure. The patient's identity and physical location were verified at the time of this visit. Either the patient or their legal pharmacy services representative has been informed of the risks [...] MRI Spine MRI Liver Referral to [facility] for rectal mass Following MRI's will refer to [facility] (Mic or Darrell) Virtual visit following MRI. [...] significance. Trace LEFT pleural effusion. 07/23/2024 - [facility] Liquid CDx drawn: Results in process 07/19/2024 [...] 4.6, Albumin: 1.7 07/01/2024-07/11/2024 - ER at [facility] after a fall due to lightheadedness, dizziness, and hypotension - transferred and admitted at [facility] for GI bleed 06/28/2024 - ERCP & Sigmoidoscopy: Dr. Bradley Pope at [facility] High grade intrahepatic duct mass/stricture, large left [...] in part B may not be entirely pharmacy services representative of a larger mass. 06/21/2024 - [...] also refer to [facility]BS and [facility] at [place] for further diagnostics. Initial Visit, July 19, [...] outpatient ERCP and Sigmoidoscopy on 06/28/2024 at [facility]. 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 She had a fall due to lightheadedness, dizziness, and hypotension and presented to the ER at [facility] on 07/01/2024. She was found to have a GI bleed and was transferred to [facility] for management. Scopes were repeated while inpatient [...] life with treatment. 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 She does have exposure to secondhand smoke. Prior History form [facility] Discharge Summary on 07/11/2024: Hospital Course: Ms. Jenna Kumar is an 79 y.o. female transferred from [place] ER to [facility] ER when she presented to [facility] for recurrent GI bleed increased fatigue weakness. She was found to have hemoglobin around 7 and blood pressure was low patient was admitted at [facility] on 06/28/2024 with diagnosis of jaundice pruritus [...] Addendum: Patient requested to speak with Dr. Pope prior to discharge. Dr. Pope was in procedure during this time and the GI team had informed him to see the patient. Discharge order was placed after discussing with GI team and ID team and I was trying to get a hold of Dr. Pope prior to discharging the patient. However, the patient was told by staff that Dr. Pope is not in house and patient became very upset and signed discharge papers that she does not agree with the discharge. I tried to talk with the patient that she can wait until Dr. Pope sees her, which may be tomorrow. However, patient was very upset and did not even let me finish speaking and son stated, You are going in circles. She would like to go now. I spoke with Dr. Puri of GI and he confirmed that Dr. Pope will see her today. I called patient and updated her that Dr. Pope was indeed going to see her. She asked for a call from Dr. Pope. Patient is discharged in stable condition. REVIEW [...] CPE Hematology and Oncology Services Provided at: [place], [place] CC: Mayito Costello DO [address] [facility] [id number] Bradley Pope MD documented in this encounter [facility] 08-01-2024 Note HNO ID: [id number] Author: REUBEN ANGELA MD Service: ? Author Type: Physician Type: Progress Notes Filed: 08/04/2024 17:40 Note Text: NAME: Jenna Kumar [facility] NO.: [id number] DATE OF SERVICE: August 01, 2024 ([place]) Some elements in this clinic note that are critical to medical decision making have been carefully reviewed and included from a prior clinic note dated: July 19, 2024 ([place]) Referring Provider: Mayito Costello DO Additional Clinicians involved in Jenna Kumar's care: Bradley Pope VIRTUAL VISIT PROGRESS NOTE This is a virtual visit using [employer] Video Call. It required patient-provider interaction for the medical decision making as documented below. I have communicated my name and active licensure. The patient's identity and physical location were verified at the time of this visit. Either the patient or their legal pharmacy services representative has been informed of the risks [...] Spine MRI Liver Referral to [facility] [place] for rectal mass Following MRI's will refer to [facility] (Mic or Darrell) Virtual visit following MRI. [...] significance. Trace LEFT pleural effusion. 07/23/2024 - [facility] Liquid CDx drawn: Results in process 07/19/2024 [...] 4.6, Albumin: 1.7 07/01/2024-07/11/2024 - ER at [facility] after a fall due to lightheadedness, dizziness, and hypotension - transferred and admitted at [facility] for GI bleed 06/28/2024 - ERCP AND Sigmoidoscopy: Dr. Bradley Pope at [facility] High grade intrahepatic duct mass/stricture, large left [...] metastatic lesion f (more content not included)... [facility] 08-01-2024 Note HNO ID: [id number] Author: REUBEN ANGELA MD Service: ? Author Type: Physician Type: Progress Notes Filed: 08/04/2024 17:44 Note Text: [facility] Multidisciplinary GI Tumor Board Primary Disease: Adenocarcinoma [...] 6.5, Albumin: 2.8 07/01/2024-07/11/2024 - ER at [facility] after a fall due to lightheadedness, dizziness, and hypotension - transferred and admitted at [facility] for GI bleed 07/01/2024 - Total Bilirubin: [...] and alternatives to the various treatment options [facility] 07-23-2024 History of Present illness Narrative [...] 1135 PATIENT DISCHARGED TO: Ambulatory patient, left [place] department area. Is this a therapy: No A Diagnostic radioactive procedure has taken place, with no further precautions necessary other than routine body substance precautions. More information regarding radiation safety can be found using this link: [email or web address] [email or web address]%20Nucl ear%20Medicine%20Procedures.pdf SIGNATURE: RT Dai(R) PATIENT NAME: Jenna Kumar DATE: July 23, 2024 TIME: 12:06 PM PAGER/CONTACT #: documented in this encounter [facility] 07-23-2024 Note HNO ID: [id number] Author: VICKIE TANG RN Service: ? Author [...] DATE: July 23, 2024 TIME: 11:29 AM [facility] 07-23-2024 Note HNO ID: [id number] Author: ASHLEY ERIC RT(R) Service: ? Author Type: Technologist Type: [...] 1135 PATIENT DISCHARGED TO: Ambulatory patient, left [place] department area. Is this a therapy: No A Diagnostic radioactive procedure has taken place, with no further precautions necessary other than routine body substance precautions. More information regarding radiation safety can be found using this link: [email or web address] [email or web address]-% 20Diagnostic%20Nuclear%20Medicine %20Procedures.pdf SIGNATURE: RT Dai(R) PATIENT NAME: Jenna Kumar DATE: July 23, 2024 TIME: 12:06 PM PAGER/CONTACT #: [facility] 07-22-2024 Telephone encounter Note Orders placed [facility] 07-22-2024 Miscellaneous Notes Orders placed Dr. Garcia said in his plan on 07/19 to draw labs for [facility] the same day as scan. The patient is coming in tomorrow 07/23 for PET if you would like [facility] to be draw at time of scan please place order... Thanks!! Cande Espitia RN documented in this encounter [facility] 07-22-[address] Garcia said in his plan on 07/19 to draw labs for [facility] the same day as scan. The patient is coming in tomorrow 07/23 for PET if you would like [facility] to be draw at time of scan please place order... Thanks!! Cande Espitia RN [facility] 07-19-2024 Instructions Shari Dumont - 07/19/2024 4:26 PM EST Will present case at Tumor Board on 07/25/2024 PET/CT prior to Tumor Board Labs for [facility] same day Virtual visit in 2 weeks documented in this encounter [facility] 07-19-2024 History of Present illness Narrative Images from the original note were not included. NAME: Jenna Kumar [facility] NO.: [id number] DATE OF SERVICE: July 19, 2024 (Abhyankar) Referring Provider: Mayito Costello, Consultation requested by Dr. Costello for an opinion regarding . Jenna Kumar, and my final recommendations will be communicated back to the requesting physician by way of shared medical record or letter via [place] mail. Additional Clinicians involved in Jenna Kumar's care: Bradley Pope DIAGNOSIS: Metastatic adenocarcinoma of liver. ASSESSMENT: 79 [...] PET/CT prior to Tumor Board [facility] same day Virtual visit in 2 weeks [...] 4.6, Albumin: 1.7 07/01/2024-07/11/2024 - ER at [facility] after a fall due to lightheadedness, dizziness, and hypotension - transferred and admitted at [facility] for GI bleed 06/28/2024 - ERCP & Sigmoidoscopy: Dr. Bradley Pope at [facility] High grade intrahepatic duct mass/stricture, large left [...] in part B may not be entirely pharmacy services representative of a larger mass. 06/21/2024 - [...] outpatient ERCP and Sigmoidoscopy on 06/28/2024 at [facility]. 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 She had a fall due to lightheadedness, dizziness, and hypotension and presented to the ER at [facility] on 07/01/2024. She was found to have a GI bleed and was transferred to [facility] for management. Scopes were repeated while inpatient [...] life with treatment. 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 She does have exposure to secondhand smoke. Prior History form [facility] Discharge Summary on 07/11/2024: Hospital Course: Ms. Jenna Kumar is an 79 y.o. female transferred from [facility] to [facility] ER when she presented to [facility] for recurrent GI bleed increased fatigue weakness. She was found to have hemoglobin around 7 and blood pressure was low patient was admitted at [facility] on 06/28/2024 with diagnosis of jaundice pruritus [...] Addendum: Patient requested to speak with Dr. Pope prior to discharge. Dr. Pope was in procedure during this time and the GI team had informed him to see the patient. Discharge order was placed after discussing with GI team and ID team and I was trying to get a hold of Dr. Pope prior to discharging the patient. However, the patient was told by staff that Dr. Pope is not in house and patient became very upset and signed discharge papers that she does not agree with the discharge. I tried to talk with the patient that she can wait until Dr. Pope sees her, which may be tomorrow. However, patient was very upset and did not even let me finish speaking and son stated, You are going in circles. She would like to go now. I spoke with Dr. Merza of GI and he confirmed that Dr. Pope will see her today. I called patient and updated her that Dr. Pope was indeed going to see her. She asked for a call from Dr. Pope. Patient is discharged in stable condition. REVIEW [...] which included preparing to see the patient, [id number] patient care, completing clinical documentation, obtaining and/or reviewing separately obtained history, performing a medically appropriate examination, counseling and educating the patient/family/caregiver, ordering medications, tests, or procedures, independently interpreting results (not separately reported), communicating results to the patient/family/caregiver, and care coordination (not separately reported). Reuben Angela MD, CPE Hematology and Oncology Services Provided at: [place], [place] Scribe Attestation: This note was scribed [...] direction. CC: Mayito Costello DO [address] [facility] [id number] Bradley Pope MD documented in this encounter [facility] 07-19-2024 Note HNO ID: [id number] Author: REUBEN ANGELA MD Service: ? Author Type: Physician Type: Progress Notes Filed: 07/21/2024 15:47 Note Text: NAME: Jenna Kumar [facility] NO.: [id number] DATE OF SERVICE: July 19, 2024 ([place]) Referring Provider: Mayito Costello DO Consultation requested by Dr. Costello for an opinion regarding Ms. Jenna Kumar, and my final recommendations will be communicated back to the requesting physician by way of shared medical record or letter via [place] mail. Additional Clinicians involved in Jenna Kumar's care: Bradley Pope DIAGNOSIS: Metastatic adenocarcinoma of liver. ASSESSMENT: 79 [...] 4.6, Albumin: 1.7 07/01/2024-07/11/2024 - ER at [facility] after a fall due to lightheadedness, dizziness, and hypotension - transferred and admitted at [facility] for GI bleed 06/28/2024 - ERCP AND Sigmoidoscopy: Dr. Bradley Pope at [facility] High grade intrahepatic duct mass/stricture, large left [...] in part B may not be entirely pharmacy services representative of a larger mass. 06/21/2024 - [...] chang colored s (more content not included)... [facility] 07-18-2024 Note Follow up call made. Patient reports that she is feeling improvement in symptoms, although she is having alternating stools, otherwise denies complaints. [facility] 07-16-2024 Evaluation note Diagnosis Onset Date Resolution Acute blood loss anemia acute M 2024 1:45pm OK (generalized anxiety disorder) acute July 16, 2024 1:45pm Hypertension acute July 16, 2 025 1:45pm Primary adenocarcinoma of liver acute July 16, 2024 1:45pm Tubulovillous adenoma of rectum acute July 16, 2024 1:45pm [facility] Work Phone: 1(970) 638-462203-03-2025 [facility] 07-12-2024 NoteXR [facility]02-27-2025 [facility]02-27-2025 [facility]2024 [facility]-27-2025 [facility]02-27-2025 [facility] 07-10-2024 [facility]Mount [facility]02-26-2025 [facility]02-26-2025 [facility] 07-10-2024 NoteMount [facility]02-26-2025 NoteMount [facility]02-26-2025 [facility] 07-10-2024 NoteMount [facility]02-25-2025 NoteMount [facility]02-25-2025 [facility] 07-09-2024 NoteMount [facility]02-25-2025 NoteMount [facility]02-25-2025 Note[facility] 07-09-2024 NoteMount [facility]02-24-2025 NoteMount [facility]02-24-2025 Note[facility] 07-08-2024 NoteMount [facility] System02-24-2025 NoteMount [facility]el [facility] System02-24-2025 NoteCase reviewed at consensus conference with agreement of the diagnosis.[facility] SystemComment on above: Performed By: #### [id number] ####[facility] (JONATHAN)[address] [place], [place] [id number] [facility]Un[facility]02-24-2025 [facility]Un[facility]02-23-2025 [facility]Un[facility]02-23-2025 [facility]Un[facility]02-23-2025 Note [facility]02-22-2025 [facility]Un[facility]02-22-2025 [facility]Un[facility]02-22-2025 Note [facility]02-21-2025 [facility]Un[facility]02-21-2025 [facility]Un[facility]02-21-2025 NoteMet with pt to follow up with SNF choice. Pt said she would only consider [facility] [place]. Sent referral. Pt has no preference for [facility], sent referral to Jabari Gomez [facility]. Await replies. Pt is having a colonoscopy on Monday. [facility]02-21-2025 NoteMount [facility]02-21-2025 [facility]Un[facility]02-21-2025 Note [facility]02-20-2025 [facility]Un[facility]02-20-2025 [facility]Un[facility]02-20-2025 Note [facility]02-20-2025 [facility]Un[facility]02-19-2025 [facility]Un[facility]02-19-2025 Note [facility]02-19-2025 [facility]Un[facility]02-19-2025 NoteUn[facility]02-19-2025 Note EGD/EUS/ERCP/flex sigmoidoscopy procedure notes and pathology results faxed to referring office of Dr. Mayito Costello @ [phone] Valley Hospital02-18-2025 NoteUn[facility]02-18-2025 Note [facility]02-18-2025 NoteMonitor and replace electrolytes will recheck BMP and followUnMiami [facility] 07-02-2024 NoteSince on beta-cornell and history of arrhythmia IV metoprolol since n.p.o. keep potassium around 4 magnesium around 2UnMiami Valley Hospital 07-02-2024 NoteAs aboveUnMiami Valley Hospital02-18-2025 NoteN.p.o. hemoglobin hematocrit every 12 hours IV Protonix GI to see patientUnMiami Valley Hospital02-14-2025 [facility]Un[facility] 06-20-2024 Evaluation note* Diagnosis Onset Date Resolution Status Admit Date OK (generalized anxiety disorder) acute June 20 10:50am Hypertension acute June 10:50am Obstructive jaundice acute 2024 10:50am Pruritus acute June 20, 2024 10:50am OK (generalized anxiety disorder) acute June 24 2 025 4:17pm Hypertension acute June 4:17pm Liver mass acute June 24, 2024 4:17pm Pruritus acute June 24, 2024 4:17pm Rectal mass acute June 4:17pm [facility] Work Phone: 1(319) 792-931902-06-2025 Evaluation note* Diagnosis Onset Date Resolution Status Admit Date OK (generalized anxiety disorder) acute June 20 10:50am Hypertension acute June 10:50am Obstructive jaundice acute 2024 10:50am Pruritus acute June 20, 2024 10:50am OK (generalized anxiety disorder) acute June 24 025 4:17pm Hypertension acute June 4:17pm Pruritus acute June 24, 2024 4:17pm Rectal mass acute June 4:17pm Liver mass deleted June 24, 2024 4:17pm Acute blood loss anemia acute M 2024 1:45pm Adenocarcinoma of liver acute M arch 2024 1:45pm OK (generalized anxiety disorder) acute July 16, 2024 1:45pm Hepatocellular carcinoma acute July 16, 2024 1:45pm Hypertension acute July 16, 2 025 1:45pm Rectal mass acute July 16 1:45pm [facility] Work Phone: 1(528) 820-972911-20-2024 Evaluation note* Diagnosis Onset Date Resolution Status Admit Date OK (generalized anxiety disorder) a cute April 03, 2024 3:35pm Hypercholesterolemia acute Nove mber 2023 3:35pm Hypertension acute March 3:35pm Mammogram declined acute Novemb er 2023 3:35pm Medicare annual wellness vis it, subsequent acute April 03, 2 024 3:35pm [facility] Work Phone: 1(687) 867-201411-20-2024 Evaluation note* Diagnosis Onset Date Resolution Status Admit Date OK (generalized anxiety disorder) a cute April 03, 2024 3:35pm Hypercholesterolemia acute 2023 3:35pm Hypertension acute March 3:35pm Mammogram declined acute Novemb er 2023 3:35pm Medicare annual wellness vis it, subsequent acute April 03, 2 024 3:35pm OK (generalized anxiety disorder) a cutJune 20, 2024 10:50am Hypertension acute June 10:50am Obstructive jaundice acute ua2024 10:50am Pruritus acute June 20, 2024 10:50am OK (generalized anxiety disorder) a June 24, 2024 4:17pm Hypertension acute June 4:17pm Liver mass acute June 24, 2024 4:17pm Pruritus acute June 24, 2024 4:17pm Rectal mass acute June 4:17pm [facility] Work Phone: Evaluation noteNo [employer] Other Evaluation note* Diagnosis Onset Date Resolution Status Admit Date OK (generalized anxiety disorder) a cutApril 03, 2024 3:35pm Hypercholesterolemia acute 2023 3:35pm Hypertension acute March 3:35pm Mammogram declined acute Novemb er 2023 3:35pm Medicare annual wellness vis it, subsequent acute April 03, 2 024 3:35pm [facility] Work Phone: Evaluation note* Diagnosis 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, part unspecified site Other specified abnormal findings of blood chemistry documented in this encounter [facility] note* Diagnosis Cholangiocarcinoma of biliary tract (HCC) Malignant neoplasm of biliary tract, part unspecified site Other specified abnormal findings of blood chemistry Cholangiocarcinoma (HCC) Malignant neoplasm of intrahepatic bile ducts documented in this encounter [facility] note* Diagnosis Cholangiocarcinoma (HCC)- Primary Malignant neoplasm of intrahepatic bile ducts [facility]* Diagnosis 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 (HCC)- Primary Rectal mass Other symptoms involving digestive system Mass of spine Malignant obstructive jaundice (HCC) Other specified disorders of biliary tract [facility]* Diagnosis 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, part unspecified site Rectal mass Other symptoms involving digestive system Malignant obstructive jaundice (HCC) Other specified disorders of biliary tract 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 (HCC) [facility]* Diagnosis 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 (HCC)- Primary Rectal mass- Primary Other symptoms involving digestive system [facility]* Diagnosis Malignant neoplasm of liver, unspecified liver malignancy type (HCC) Rectal polyp Anal and rectal polyp documented in this encounter [facility] note* Diagnosis Malignant neoplasm of liver, unspecified liver malignancy type (HCC)- Primary Rectal polyp Anal and rectal polyp documented in this encounter [facility] note* Diagnosis Preoperative examination- Primary Preoperative examination, unspecified OK (generalized anxiety disorder) Generalized anxiety disorder Primary hypertension Unspecified essential hypertension LBBB (left bundle branch block) Other left bundle branch block Anemia, unspecified type PVC's (premature ventricular contractions) Other premature beats 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 (HCC) Rectal polyp Anal and rectal polyp [facility] Diagnosis Preoperative examination- Primary Preoperative examination, unspecified OK (generalized anxiety disorder) Generalized anxiety disorder Primary hypertension Unspecified essential hypertension LBBB (left bundle branch block) Other left bundle branch block Anemia, unspecified type PVC's (premature ventricular contractions) Other premature beats 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 (HCC) Malignant neoplasm of liver, unspecified liver malignancy type (HCC)- Primary Liver mass Unspecified disorder of liver [facility] Diagnosis Syncope, unspecified syncope type- Primary [facility]* Type Description Date Medical History HTN Medical History OK Medical History LBBB Medical History HLD Surgical History Hydatidiform mole [employer] Other InstructionsNot on filedocumented in this encounter [facility] this [facility] filed[facility] Summary Purpose Family History No Family History Records FoundNo Family History Records FoundNo Family History Records FoundNo Family History Records FoundNo Family History Records Found Advance Directives Advance Directive Response Recorded Date/ Time Advance Directives No February 15, 2024 2:00pm Date Activated Date Inactivated Comments 10/06/2024 3:58 AM 10/08/2024 7:42 PM Advance Directive Response Recorded Date/ Time Advance Directives No February 15, 2024 3:00pm Date Activated Date Inactivated Comments 10/06/2024 3:58 AM 10/08/2024 7:42 PM Chief Complaint and Reason for Visit Chief Complaint Admit Date Wellness April 03, 2024 3:35pm not feeling well June 20, 2024 1 0:50am Reason for Visit Admit Date OK (generalized anxiety disorder) Novem 2023 3:35pm Hypercholesterolemia [...] 2024 4:17pm Reason for Visit Admit Date OK (generalized anxiety disorder) Novem 2023 3:35pm Hypercholesterolemia April 03, 2024 3:35pm Hypertension April 03, 2024 3:35pm Mammogram declined April 03, 2024 3:35pm Medicare annual wellness visit, subseque nt April 03, 2024 3:35pm OK (generalized anxiety disorder) Febru [email or web address] 10:50am Hypertension June 20, 2024 1 0:50am Obstructive jaundice June 20, 2024 10:50am Pruritus June 20, 2024 1 0:50am OK (generalized anxiety disorder) Febru [email or web address] 4:17pm Hypertension June 24, 2024 4:17pm Liver mass June 24, 2024 4:17pm Pruritus June 24, 2024 4:17pm Rectal mass June 24, 2024 4:17pm Chief Complaint Admit Date not feeling well June 20, 2024 1 0:50am discuss test results June 24, 2024 4:17pm Unknown July 01, 2024 1:54pm Reason for Visit Admit Date OK (generalized anxiety disorder) Febru [email or web address] 10:50am Hypertension June 20, 2024 1 0:50am Obstructive jaundice June 20, 2024 10:50am Pruritus June 20, 2024 1 0:50am OK (generalized anxiety disorder) u 2024 4:17pm Hypertension June 24, 2024 4:17pm Liver mass June 24, 2024 4:17pm Pruritus June 24, 2024 4:17pm Rectal mass June 24, 2024 4:17pm Chief Complaint Admit Date not feeling well June 20, 2024 1 0:50am discuss test results June 24, 2024 4:17pm Unknown July 01, 2024 1:54pm Amb Documentation July 15, 2024 9:21 am [facility] 16, 2024 1:45 pm Reason for Visit Admit Date OK (generalized anxiety disorder) u 2024 10:50am Hypertension June 20, 2024 1 0:50am Obstructive jaundice June 20, 2024 10:50am Pruritus June 20, 2024 1 0:50am OK (generalized anxiety disorder) 2024 4:17pm Hypertension June 24, 2024 4:17pm Pruritus June 24, 2024 4:17pm Rectal mass June 24, 2024 4:17pm Liver mass June 24, 2024 4:17pm Acute blood loss anemia July 16, 2024 1:45pm Adenocarcinoma of liver July 16, 2024 1:45pm OK (generalized anxiety disorder) July 16, 2024 1:45pm Hepatocellular carcinoma July 16, 2024 1:45pm Hypertension July 16, 2024 1:45 pm Rectal mass July 16, 2024 1:45 pm Chief Complaint Admit Date Amb Documentation July 15, 2024 9:21 am [facility] July 16, 2024 1:45 pm Reason for Visit Admit Date Acute blood loss anemia July 16, 2024 1:45pm OK (generalized anxiety disorder) July 16, 2024 1:45pm Hypertension July 16, 2024 1:45 pm Primary adenocarcinoma of liver July 4t h2024 1:45pm Tubulovillous adenoma of rectum July 16t h2024 1:45pm Additional Source Comments INFORMATION SOURCE (unrecogn ized section and content) DATE CREATED AUTHOR 05/28/2021 [facility] DATE CREATED AUTHOR AUTHOR'S ORGANIZ ATION 09/26/2024 [facility] DATE CREATED AUTHOR AUTHOR'S ORGANIZ ATION 09/27/2024 [facility] DATE CREATED AUTHOR AUTHOR'S ORGANIZ ATION 10/11/2024 [facility] DATE CREATED AUTHOR AUTHOR'S ORGANIZ ATION 10/20/2024 [facility] REASON FOR VISIT (unrecogniz ed section and content) Reason Comments Consult Reason Comments Radiology NM Specialty Diagnoses / Procedures Referred By Kamilah t Referred To Contact MOLECULAR & FUNCTIONAL IMAGING Diagnoses Cholangiocarcinoma of biliary tract (HCC) Other specified abnormal findings of blood chemistry Procedures NM PET/CT SKULL-THIGH INITIAL PET IMAGING CT ATTENUATION SKULL BASE MID-THIGH Reuben Angela MD [address] [place] [address] [place] [address] Phone: tel: fax: [facility] [address] [place] [address] Phone: tel: Referral ID Status Reason Start Date Expiration Date V isits Requested Visits Authorized [id number] Closed Auto-Generate d Referral 07/19/2024 08/18/2025 1 1 Reason Comments Orders Reason Comments Established Patient Reason Comments Nausea/loss of appetite Reason Comments Orders [facility] Reason Comments Patient Update Nausea Reason Comments Established Patient Reason Comments Consult Consult IH cholangio carcinoma Reason Comments Patient Question Reason Comments Anesthesia Consult Reason Comments Follow-up EST PT, HOSP FU IP T TH SCHED W/PT Care Teams (unrecognized sec tion and content) [...] Provider Active Start: July 01, 2024 Saad Devi DO Attending Provider Active Start : July 01, 2024 Team Status: Inactive Member Role Status Dates Saad Devi DO Attending Provider Active Start : July 01, [...] Attending Provider Active Start: March 20, 2024 Electro Mechanical Engineer Relationship Specialty Start Date End Date Mayito Costello DO [address] [place] [address] PCP - General Internal Medicine 07/17/24 Electro Mechanical Engineer Relationship Specialty Start Date End Date Mayito Costello DO [address] [place] [address] PCP - General Internal Medicine 07/17/24 Electro Mechanical Engineer Relationship Specialty Start Date End Date Mayito Costello DO [address] [place] [address] PCP - General Internal Medicine 07/17/24 Electro Mechanical Engineer Relationship Specialty Start Date End Date Mayito Costello DO [address] [place] [address] PCP - General Internal Medicine 07/17/24 Electro Mechanical Engineer Relationship Specialty Start Date End Date Mayito Costello DO [address] [place] [facility] [place] [address] PCP - General Internal Medicine 07/17/24 Electro Mechanical Engineer Relationship Specialty Start Date End Date Mayito Costello DO [address] [place] [facility] [place] [address] PCP - General Internal Medicine 07/17/24 Electro Mechanical Engineer Relationship Specialty Start Date End Date Mayito Costello DO [address] [place] [facility] [place] [address] PCP - General Internal Medicine 07/17/24 Electro Mechanical Engineer Relationship Specialty Start Date End Date Mayito Costello DO [address] [place] [facility] [place] [address] PCP - General Internal Medicine 07/17/24 Electro Mechanical Engineer Relationship Specialty Start Date End Date Mayito Costello DO [address] [place] [facility] [place] [address] PCP - General Internal Medicine 07/17/24 Electro Mechanical Engineer Relationship Specialty Start Date End Date Mayito Costello DO [address] [place] [facility] [place] [address] PCP - General Internal Medicine 07/17/24 Electro Mechanical Engineer Relationship Specialty Start Date End Date Mayito Costello DO [address] [place] [facility] [place] [place] [address] PCP - General Internal Medicine 07/17/24 Electro Mechanical Engineer Relationship Specialty Start Date End Date Mayito Costello DO [address] [place] [facility] [place] [address] PCP - General Internal Medicine 07/17/24 Electro Mechanical Engineer Relationship Specialty Start Date End Date Mayito Costello DO [address] [place] [address] PCP - General Internal Medicine 07/17/24 Electro Mechanical Engineer Relationship Specialty [place] [address] [place] [id number] PCP - General Internal Medicine 10/06/24 Electro Mechanical Engineer Relationship Specialty Start [place] [address] [place] [id number] PCP - General Internal Medicine 10/06/24 Team Status: Active Member Role Status Dates Mayito Costello DO Primary Care Provider Active Start: July 19, 2024 Reuben Angela MD Attending Provider Active Start: July 19, 2024 Team Status: Active Member Role Status Dates Mayito Costello DO Primary Care Provider Active Start: August 12, 2024 Reuben Angela MD Attending Provider Active Start: August 12, 2024 Team Status: Active Member Role Status Dates Mayito Costello DO Primary Care Provider Active Start: September 12, 2024 Reuben Angela MD Attending Provider Active Start: September 12, 2024 Team Status: Active Member Role Status Dates Mayito Costello DO Primary Care Provider Active Start: October 05, 2024 Omari Goldstein DO Attending Provider Active Start: October 05, 2024 Team Status: Active Member Role Status Dates Mayito Costello DO Primary Care Provider Active Start: October 06, 2024 Omari Goldstein DO Attending Provider Active Start: October 06, 2024 Electro Mechanical Engineer Relationship Specialty Start Date End Date Mayito Costello DO [address] [place] [address] PCP - General Internal Medicine 10/06/24 Electro Mechanical Engineer Relationship Specialty Start [place] [address] [place] [id number] PCP - General Internal Medicine 10/06/24 Electro Mechanical Engineer Relationship Specialty Start Date End Date Mayito CostelloDO [address] [place] [address] PCP - General Internal Medicine 10/06/24 Goals (unrecognized section and content) Goals may be documented in a n alternate section Source Comments (unrecognize d section and content) In the event this informatio n is protected by the Federal Confidentiality of Alcohol and Drug Abuse Patient Records regulations: The Federal rules restrict any use of the information to criminally investigate or prosecute any alcohol or drug abuse patient.[facility] the event this information is protected by the Federal Confidentiality of Alcohol and Drug Abuse Patient Records regulations: The Federal rules restrict any use of the information to criminally investigate or prosecute any alcohol or drug abuse patient.[facility] the event this information is protected by the Federal Confidentiality of Alcohol and Drug Abuse Patient Records regulations: The Federal rules restrict any use of the information to criminally investigate or prosecute any alcohol or drug abuse patient.[facility] the event this information is protected by the Federal Confidentiality of Alcohol and Drug Abuse Patient Records regulations: The Federal rules restrict any use of the information to criminally investigate or prosecute any alcohol or drug abuse patient.[facility] the event this information is protected by the Federal Confidentiality of Alcohol and Drug Abuse Patient Records regulations: The Federal rules restrict any use of the information to criminally investigate or prosecute any alcohol or drug abuse patient.[facility] the event this information is protected by the Federal Confidentiality of Alcohol and Drug Abuse Patient Records regulations: The Federal rules restrict any use of the information to criminally investigate or prosecute any alcohol or drug abuse patient.[facility] the event this information is protected by the Federal Confidentiality of Alcohol and Drug Abuse Patient Records regulations: The Federal rules restrict any use of the information to criminally investigate or prosecute any alcohol or drug abuse patient.[facility] the event this information is protected by the Federal Confidentiality of Alcohol and Drug Abuse Patient Records regulations: The Federal rules restrict any use of the information to criminally investigate or prosecute any alcohol or drug abuse patient.[facility] the event this information is protected by the Federal Confidentiality of Alcohol and Drug Abuse Patient Records regulations: The Federal rules restrict any use of the information to criminally investigate or prosecute any alcohol or drug abuse patient.[facility] the event this information is protected by the Federal Confidentiality of Alcohol and Drug Abuse Patient Records regulations: The Federal rules restrict any use of the information to criminally investigate or prosecute any alcohol or drug abuse patient.[facility] the event this information is protected by the Federal Confidentiality of Alcohol and Drug Abuse Patient Records regulations: The Federal rules restrict any use of the information to criminally investigate or prosecute any alcohol or drug abuse patient.[facility] the event this information is protected by the Federal Confidentiality of Alcohol and Drug Abuse Patient Records regulations: The Federal rules restrict any use of the information to criminally investigate or prosecute any alcohol or drug abuse patient.[facility] the event this information is protected by the Federal Confidentiality of Alcohol and Drug Abuse Patient Records regulations: The Federal rules restrict any use of the information to criminally investigate or prosecute any alcohol or drug abuse patient.[facility] the event this information is protected by the Federal Confidentiality of Alcohol and Drug Abuse Patient Records regulations: The Federal rules restrict any use of the information to criminally investigate or prosecute any alcohol or drug abuse patient.[facility] the event this information is protected by the Federal Confidentiality of Alcohol and Drug Abuse Patient Records regulations: The Federal rules restrict any use of the information to criminally investigate or prosecute any alcohol or drug abuse patient.[facility] Campus[facility] the event this information is protected by the [facility] Confidentiality of Alcohol and Drug Abuse Patient Records regulations: The Federal rules restrict any use of the information to criminally investigate or prosecute any alcohol or drug abuse patient.[facility] the event this information is protected by the Federal Confidentiality of Alcohol and Drug Abuse Patient Records regulations: The Federal rules restrict any use of the information to criminally investigate or prosecute any alcohol or drug abuse patient.[facility] FOR RECORDS PERTAINING TO PATIENTS WHO ARE [...] BE BASED ON THE PRIMARY CLINICAL RECORDS. [employer] [facility]. provides no warranty or guarantee of the accuracy or completeness of information in this document.
--- NOTE | 2024-11-15 11:07 | ECG_ITS ---
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 Measurements Intervals [place] Rate: 109 P: 79 WI: 178 QRS: -19 QRSD: 128 T: 61 QT: 336 QTc: 400 Interpretive Statements 1120 Sinus tachycardia 2550 Left bundle branch block 9150 abnormal ECG Compared to ECG 10/05/2024 22:17:11 Left bundle-branch block now present Sinus rhythm no longer present Myocardial infarct finding no longer present ST (T wave) deviation no longer present Electronically Signed On 11-17-2024 17:17:43 EDT by ASHLY ARRINGTON M.D.
[2024-11-15 11:22] LABS: Hematocrit 40.7 % (36.0-48.0); Hemoglobin 13.6 g/dL (12.0-16.0); Mean Corpuscular HGB Conc 33.4 g/dL (29.9-35.2); Mean Corpuscular Hemoglobin 27.5 pg (26.7-34.0); Mean Corpuscular Volume 82.4 fL (81.0-99.0); Platelet Count 312 10^3/uL (150-450); Red Blood Count 4.94 10^6/uL (4.20-5.40)
[2024-11-15] MEDS: PROMETHAZINE HCL 12.5 MG in 0.9 % SODIUM CHLORIDE 50 ML 202 MG IV (11:22)
[2024-11-15 11:25] LABS: Anion Gap 16.8; Blood Urea Nitrogen 17.0 mg/dL (7.0-18.0); Calcium 9.3 mg/dL (8.5-10.1); Carbon Dioxide 22.1 mmol/L (21.0-32.0); Chloride 96 mmol/L (98-107); Estimated GFR (African America >60 (>=60 mL/min/1.73m^2); Estimated GFR (Non-African Ame 59 (>=60 mL/min/1.73m^2); Glucose 124 mg/dL (74-106); Potassium 3.9 mmol/L (3.5-5.1); Sodium 131 mmol/L (136-145)
[2024-11-15 11:27] LABS: White Blood Count 31.2 10^3/uL (4.0-11.0)
--- NOTE | 2024-11-15 11:36 | ED.GENADUL1 ---
HPI HPI - General Adult General Chief complaint: Nausea/Vomiting/Diarrhea Stated complaint: WEAKNESS DIZZINESS Time Seen by Provider: 11/15/24 11:00 Source: patient Mode of arrival: Wheelchair Limitations: no limitations History of Present Illness HPI narrative: 79-year-old female presents for nausea and vomiting. She states for several days she has had a poor appetite. She has not been eating or drinking as much as typical. She does not have any abdominal pain or fever. She has a stent in her liver she states that should have been changed a few weeks ago but she had broken her neck and they were not able to do the stent change. She is scheduled to get her cervical collar taken off in a few days. Related Data Home Medications ?Medication ?Instructions ?Recorded ?Confirmed diazepam 2 mg tablet 2 mg PO Q6H PRN anxiety 07/01/24 11/15/24 losartan 25 mg tablet 25 mg PO DAILY 07/01/24 11/15/24 metoprolol tartrate 25 mg tablet 12.5 mg PO DAILY 07/01/24 11/15/24 ondansetron HCl 8 mg tablet 8 mg PO Q8H PRN nausea and vomiting 10/05/24 11/15/24 Previous Rx's ?Medication ?Instructions ?Recorded ondansetron 4 mg disintegrating 4 mg PO Q6H PRN nausea and 11/15/24 tablet vomiting #20 tabs Allergies Allergy/AdvReac Type Severity Reaction Status Date / Time penicillin G AdvReac Intermediate Unknown Verified 10/05/24 22:12 Sulfa (Sulfonamide AdvReac Intermediate Unknown Verified 10/05/24 22:12 Antibiotics) Review of Systems ROS Narrative A ten point review of systems is negative except as noted above. 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 General: The patient appears well and in no apparent distress. Patient is resting comfortably on cart. Skin: Warm, dry, no pallor noted. There is no rash noted. Head: Normocephalic, atraumatic Eye: Normal conjunctiva, no drainage Ears, Nose, Mouth, and Throat: oral mucosa is slightly dry. Nares patent. Cardiovascular: Regular Rate and Rhythm Respiratory: Patient is in no distress, no accessory muscle use, lungs are clear to auscultation, no wheezing, rales or rhonchi Back: non-tender GI: Soft and nontender including the right upper quadrant Musculoskeletal: The patient has no evidence of calf tenderness, no pitting edema, symmetrical pulses noted bilaterally Neurological: A&O, normal speech Psychiatric: Cooperative Constitutional Vital Signs, click to edit/add: Last Vital Signs Temp 98.5 F 11/15/24 10:57 Pulse 91 H 11/15/24 14:20 Resp 21 H 11/15/24 14:20 BP 123/70 11/15/24 14:00 Pulse Ox 94 L 11/15/24 14:10 O2 Del Method Room Air 11/15/24 11:10 Course Vital Signs Vital signs: Vital Signs Temperature 98.5 F 11/15/24 10:57 Pulse Rate 118 H 11/15/24 10:57 Respiratory Rate 18 11/15/24 10:57 Blood Pressure 122/78 11/15/24 10:57 Pulse Oximetry 95 11/15/24 10:57 Oxygen Delivery Method Room Air 11/15/24 10:57 Temperature 98.5 F 11/15/24 10:57 Pulse Rate 91 H 11/15/24 14:20 Respiratory Rate 21 H 11/15/24 14:20 Blood Pressure 123/70 11/15/24 14:00 Pulse Oximetry 94 L 11/15/24 14:10 Oxygen Delivery Method Room Air 11/15/24 11:10 Medical Decision Making [facility] Narrative Medical decision making narrative: WBC is 31,000 but it appears that her baseline is in the 20s. LFTs are appropriate and much improved. Case discussed with GI fellow at [facility] and we discussed the CT results as well. He feels that the patient does not need to be transferred and there is no indication for admission in the hospital. The patient is supposed to see Dr. Pope this week for stent change. She was prescribed Zofran. Treatment diagnosis and follow-up were discussed with the patient and her family. Differential Diagnosis Differential Diagnosis: Stent malfunction, gastroenteritis, dehydration Lab Data Lab results reviewed: Yes I reviewed the patient's lab results Labs: Lab Results 11/15/24 Range/Units 11:07 WBC 31.2 H* (4.0-11.0) 10^3/uL RBC 4.94 (4.20-5.40) 10^6/uL Hgb 13.6 (12.0-16.0) g/dL Hct 40.7 (36.0-48.0) % MCV 82.4 (81.0-99.0) fL MCH 27.5 (26.7-34.0) pg MCHC 33.4 (29.9-35.2) g/dL RDW 14.3 (11.0-15.0) % Plt Count 312 (150-450) 10^3/uL MPV 12.3 (9.5-13.5) fL Seg Neuts % (Manual) 85.0 H (43.0-75.0) Band Neutrophils % 1.0 (0-5) % Lymphocytes % (Manual) 5.0 L (20.5-60.0) % Atypical Lymphs % (Man) 2.0 % Monocytes % (Manual) 6.0 (1.7-12.0) % Eosinophils % (Manual) 1.0 (0.9-7.0) % Basophils % (Manual) 0.0 L (0.2-2.0) % Neutrophils # (Manual) 26.52 H (1.4-6.5) 10^3/uL Band Neutrophils # 0.3 (0.0-0.3) 10^3/uL Lymphocytes # (Manual) 1.56 (1.20-3.80) 10^3/uL Abs Atypical Lymphs Man 0.62 Monocytes # (Manual) 1.87 H (0.30-0.80) 10^3/uL Eosinophils # (Manual) 0.31 (0.00-0.70) 10^3/uL Basophils # (Manual) 0.00 (0.00-0.10) 10^3/uL Sodium 131 L (136-145) mmol/L Potassium 3.9 (3.5-5.1) mmol/L Chloride 96 L (98-107) mmol/L Carbon Dioxide 22.1 (21.0-32.0) mmol/L Anion Gap 16.8 BUN 17.0 (7.0-18.0) mg/dL Creatinine 0.91 (0.55-1.02) mg/dL Est GFR ( Amer) >60 (>=60 mL/min/1.73m^2) Est GFR (Non-Af Amer) 59 L (>=60 mL/min/1.73m^2) BUN/Creatinine Ratio 18.7 Glucose 124 H (74-106) mg/dL Calcium 9.3 (8.5-10.1) mg/dL Total Bilirubin 2.0 H (0.2-1.0) mg/dL Direct Bilirubin 1.1 H* (0.0-0.2) mg/dL AST 42 H (15-37) U/L ALT 60 H (14-59) U/L Alkaline Phosphatase 599 H (46-116) U/L Total Protein 7.1 (6.4-8.2) g/dL Albumin 2.5 L (3.4-5.0) g/dL Globulin 4.6 g/dL Albumin/Globulin Ratio 0.5 Amylase 26 (25-115) U/L Lipase 16.0 (16.0-77.0) U/L Imaging Data CT scan - abdomen: Radiologist's impression: ITS Impressions Abdomen/Pelvis CT 11/15/24 11:50 IMPRESSION: Distended gallbladder with questionable wall thickening, if there are right upper quadrant symptoms, consider ultrasound. Slight prominence of the right hepatic lobe hepatic ducts, unclear if this is to incomplete or suboptimal drainage of the right hepatic ducts. Difficult to appreciate on prior MRI for comparison purposes. Correlation with LFTs strongly recommended. Similar appearance of the martín hepatic mass with findings worrisome for new hepatic lesions possibly related to progression of disease/metastases. Impression dictated by: Kash Baxter M.D. 11/15/2024 1:05 PM Dictation Location: [place] [address] Electronically authenticated by: [id number] Y Date: 11/15/2024 13:05 Discharge Plan Discharge Chief Complaint: Nausea/Vomiting/Diarrhea Clinical Impression: Nausea and vomiting Patient Disposition: Home, Self-Care Time of Disposition Decision: 14:54 Condition: Good Mode of Transportation: Private Vehicle Prescriptions / Home Meds: New ondansetron 4 mg tablet,disintegrating 4 mg PO Q6H PRN (Reason: nausea and vomiting) Qty: 20 0RF No Action losartan 25 mg tablet 25 mg PO DAILY metoprolol tartrate 25 mg tablet 12.5 mg PO DAILY diazepam 2 mg tablet 2 mg PO Q6H PRN (Reason: anxiety) ondansetron HCl 8 mg tablet 8 mg PO Q8H PRN (Reason: nausea and vomiting) Print Language: Tajik Instructions: Acute Nausea and Vomiting (ED) Additional Instructions: See Dr. Pope this week. Return to the emergency department if symptoms worsen. Referrals: Mayito Jade DO [Primary Care Provider, Internal Medicine] - 1 week
[2024-11-15 11:40] LABS: Atypical Lymphocytes % Manual 2.0 %; Atypical Lymphocytes Abs Man 0.62; Basophils Abs Manual 0.00 10^3/uL (0.00-0.10); Basophils Percent Manual 0.0 % (0.2-2.0); Eosinophils Absolute Manual 0.31 10^3/uL (0.00-0.70); Eosinophils Percent Manual 1.0 % (0.9-7.0); Lymphocytes Absolute Manual 1.56 10^3/uL (1.20-3.80); Lymphocytes Percent Manual 5.0 % (20.5-60.0); Monocytes Absolute Manual 1.87 10^3/uL (0.30-0.80); Monocytes Percent Manual 6.0 % (1.7-12.0)
[2024-11-15 11:41] LABS: Band Neutrophils Absolute 0.3 10^3/uL (0.0-0.3); Segmented Neut Absolute Manual 26.52 10^3/uL (1.4-6.5); Segmented Neutrophils % Manual 85.0 (43.0-75.0)
[2024-11-15] MEDS: 0.9 % SODIUM CHLORIDE 500 ML IV (11:43)
[2024-11-15 11:45] LABS: Alanine Aminotransferase 60 U/L (14-59); Albumin Globulin Ratio 0.5; Albumin Level 2.5 g/dL (3.4-5.0); Alkaline Phosphatase 599 U/L (46-116); Amylase 26 U/L (25-115); Aspartate Amino Transferase 42 U/L (15-37); Globulin 4.6 g/dL; Lipase 16.0 U/L (16.0-77.0); Total Protein 7.1 g/dL (6.4-8.2)
--- NOTE | 2024-11-15 11:50 | CT_ITS ---
The [address] [address] Patient Name: JENNA OSWALD MRN: [id number] date: 1945 Sex: F Assigned Patient Location: ER Current Patient Location: ER Accession/Order Number: [id number] Exam Date: 11/15/2024 12:49 Report Date: 11/15/2024 13:05 At the request of: GRIFFIN MANN MD Procedure: CT abdomen pelvis w con CT ABDOMEN AND PELVIS WITH INTRAVENOUS CONTRAST: CLINICAL HISTORY: stent, nausea, elevated WBC COMPARISON: MRI 08/27/2024 TECHNIQUE: Spiral images were obtained through the abdomen and pelvis following the administration of intravenous contrast. This CT exam was performed using one or more following dose reduction techniques: Automated exposure control, adjustment of the mA and/or kV according to patient size, or use of iterative reconstruction technique. FINDINGS: Lung Bases: [Minimal bibasilar areas of hypoventilatory changes and atelectasis.] Epicardial phrenic lymph node identified 7 x 18 mm in size. Organs:Heterogeneous mass within the martín hepatic region liver again identified measuring up to 6 cm in greatest dimension. This appears similar prior consolidation. Evidence of stent within the biliary tree noted. There are few new hepatic evidence identified notably involving the right liver anteriorly 1.6 cm size and left hepatic lobe 1.5 cm in size. There is slight prominence of the intrahepatic ducts involving the right hepatic lobe 1 compared to the hepatic ducts, if this is due to less than optimal drainage of the right hepatic biliary tree of uncertain clinical significance. Otherwise adrenal glands unremarkable. Pancreas unremarkable. Bilateral renal cysts. Unremarkable enhancement of the kidneys. The gallbladder is enlarged/distended this is not well evaluated on prior examination due to the substantial artifact arising from the biliary stents on the MRI. Spleen unremarkable. GI: Mild to moderate retained stool. No bowel obstruction. Colonic diverticulosis. Appendix not visualized. No CT findings acute appendicitis.[ Pelvis:[Bladder unremarkable. Uterus unremarkable. No adnexal mass.] Peritoneum/Retroperitoneum:No free air or free fluid. Moderate plaque involving the nonaneurysmal aorta. There are few prominent periaortic and martín hepatic lymph nodes possibly metastatic appearing subarticular size.[ Abd wall/Bones:Degenerative changes. No suspicious osseous lesion.[ CT/CT abdomen pelvis w con IMPRESSION: Distended gallbladder with questionable wall thickening, if there are right upper quadrant symptoms, consider ultrasound. Slight prominence of the right hepatic lobe hepatic ducts, unclear if this is to incomplete or suboptimal drainage of the right hepatic ducts. Difficult to appreciate on prior MRI for comparison purposes. Correlation with LFTs strongly recommended. Similar appearance of the martín hepatic mass with findings worrisome for new hepatic lesions possibly related to progression of disease/metastases. Impression dictated by: Kash Baxter M.D. 11/15/2024 1:05 PM Dictation Location: [place] [id number] Electronically authenticated by: [id number] Y Date: 11/15/2024 13:05
--- NOTE | 2024-11-15 13:31 | PC.NURSE ---
call light on, pt nauseated and rec'vd order for zofran.
== END 2024-11-15 15:15 | disposition home or self-care (01) ==
PROVIDERS: Emergency Provider Emergency Medicine; PCP Internal Medicine
DX: R11.2 Nausea with vomiting, unspecified (principal); K76.9 Liver disease, unspecified
CPT/HCPCS: 36415; 74177; 80048; 80076; 81001; 82150; 83690; 85007; 85027; 87040; 93005; 96361; 96365; 96375; 99285; J2405; J2550; Q9967